=== PATIENT | male | born 1960 | race Caucasian/White ===

== ENCOUNTER → 2019-03-26 10:39 | Outpatient (CLI) | payer OTHER, MEDICAID, SELFPAY | PROVIDERS: PCP Student in an Organized Health Care Education/Training Program; Visit Provider Student in an Organized Health Care Education/Training Program | DX: R20.2 Paresthesia of skin (principal) | CPT/HCPCS: 95885; 95886; 95909 ==

== ENCOUNTER 2019-04-21 13:30 | Outpatient (RCR) | payer OTHER, MEDICAID, SELFPAY ==
--- NOTE | 2019-04-13 15:33 | PT.OIE ---
Current Diagnoses Pain in left shoulder (04/13/19) Past Medical History (Last Updated 03/29/18 @ 13:09 by Nicole Zimmer LPN) Alcohol abuse (Chronic) Hypertension (Chronic) Past Surgical History (Last Updated 03/29/18 @ 13:09 by Nicole Zimmer LPN) History of nephrectomy (Resolved 1977) Hx of appendectomy (Resolved 1977) Hx of hernia repair (Resolved 1999) Visit Care Team Role Provider Type Elvin Payne MD Attending Provider Physician Primary Care Provider Specialty: Internal Medicine Address: [address] [place] [address], [place] [id number] Email: [email or web address] Physical Therapy Initial Evaluation PT-OP-A Visit Information Start: 04/13/19 12:46 Freq: Status: Active Protocol: Document 04/13/19 13:38 LRN (Rec: 04/13/19 14:50 LRN [id number]) Out-Patient Physical Therapy Visit Information Visit Information Visit Type Initial Evaluation Visit Start Time 13:38 Visit Stop Time 14:26 Total Visit Minutes 48 Visit Number 1 Number of GOLD AND SILVER ASSAYER Visits 0 Evaluation Information Evaluation Date 04/13/19 Precautions Precautions 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 PT-OP-B Current Condition Start: 04/13/19 12:46 Freq: Status: Active Protocol: Document 04/13/19 13:38 LRN (Rec: 04/13/19 14:50 LRN [id number]) Current Condition History of Current Condition Onset Date 2.5 months ago after splitting wood, next day had pain in L shoulder. Current Complaints Posterior neck pain that is dull and sharp in nature. History of Current Condition Pt reports currently he is having very little pain and his pain went from the L shoulder to the R shoulder and is now only in the middle of the neck. Prior Treatments and Tests No recent tests or treatments. 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 He has had nerve conduction testing for R leg numbness from knee to foot. Future Testing and Treatments Planned No follow up care planned. Developmental History Developmental History 10 days ago was sleeping on R shoulder and jerked awake causing pain onset in R shoulder and neck and elimination of pain in the L shoulder. For 4 days he was not able to lift himself out of bed and his son and had to help him. He reports passing out for 20 sec's due to the pain. He slept without a pillow and now he only has pain in the back of the neck. Treatment Goals Patient/Caregiver Goals Pt goal is to find out what is wrong and fix it. Prior Functional Status Baseline Function- ADL's Independent Baseline Function- Mobility Independent Current Functional Impairments (Reported) Functional Limitations- ADL's Sleeping is hindered. Waking every other night if he rolls over wrong, causing a kink in his neck. He is waking from sleep every other night. 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 Personal Factors Other Personal Factors That May Effect 1/2 pack smoker Therapy/Recovery Drinks 1-3 beers daily Controlled HBP Hx of neck and back pain. PT-OP-C Subjective Start: 04/13/19 12:46 Freq: Status: Active Protocol: Document 04/13/19 13:38 LRN (Rec: 04/13/19 14:50 LRN [id number]) Patient Questionnaires Quick Dash- Upper Extremity Quick Dash UE Score 20.45 Quick Dash UE Impairment 20 to 39% Impaired (Score 20- 39) OP-PT Pain Assessment Pain Assessment Grid Paper Pain Assessment Grid Completed Yes Location Posterior Neck Pain Location Details C3-C5 facet joints and transverse processes, right UT Intensity 7 Scale Used Numeric (1 - 10) Description Dull,Sharp Pain Aggravating Factors Activity Other Pain Aggravating Factors Moving head, nighttime positioning. PT-OP-H Neuro Start: 04/13/19 14:51 Freq: Status: Active Protocol: Document 04/13/19 13:38 LRN (Rec: 04/13/19 15:22 LRN [id number]) Sensation Evaluation Gross Sensation Gross Sensation WNL Deep Tendon Reflex & Clonus Assessment Deep Tendon Reflex Left Tricep Deep Tendon Reflex 1+ Diminished Left Bicep Deep Tendon Reflex 1+ Diminished Left Brachioradialis Deep Tendon Reflex 0 Absent Right Tricep Deep Tendon Reflex 0 Absent Right Bicep Deep Tendon Reflex 0 Absent Right Brachioradialis Deep Tendon Reflex 1+ Diminished PT-OP-J Posture/Palpation/Skin Start: 04/13/19 14:51 Freq: Status: Active Protocol: Document 04/13/19 13:38 LRN (Rec: 04/13/19 15:22 LRN [id number]) Posture Evaluation Comments Posture Comments Standing: Increased lordosis of neck and back, L scapula is depressed and upwardly rotated, C-curve of back with apex on R. Pelvis appears level. Palpation Assessment Location Neck Palpation Location R Cervical paraspinals and Supraspinatus/UT Palpation Findings Soft Tissue Tightness, Tenderness Palpation Details Tenderness in posterior aspect of the neck ~C3-C5 level PT-OP-K Range of Motion Start: 04/13/19 14:51 Freq: Status: Active Protocol: Document 04/13/19 13:38 LRN (Rec: 04/13/19 15:22 LRN [id number]) Cervical Spine Range of Motion Cervical Spine Active Degrees Testing Position Sitting Flexion 57 Extension 85 Rotation Left 60 Rotation Right 55 Lateral Flexion Left 32 Lateral Flexion Right 40 ROM Limitations Pain Shoulder Goniometric Range of Motion Shoulder Right Active Shoulder ROM WFL Yes Left Active Shoulder ROM WFL Yes Shoulder ROM Limitations Shoulder ROM Limitations Soft Tissue Tightness Comments Reaching behind head to level of T2 bilaterally. Reaching behind back to level of T6 bilaterally. PT-OP-M Strength Start: 04/13/19 14:51 Freq: Status: Active Protocol: Document 04/13/19 13:38 LRN (Rec: 04/13/19 15:22 LRN [id number]) Cervical Spine Strength Cervical Spine Manual Muscle Testing Testing Position Sitting Reason Not Measured WFL Comments Neck strength is generally 5/5 Shoulder Strength Shoulder Manual Muscle Testing Right Reason Not Measured WFL Left Reason Not Measured WFL Comments Testing L shoulder AB elicited lateral arm pain with resistance. PT-OP-Q Treatments Start: 04/13/19 14:51 Freq: Status: Active Protocol: Document 04/13/19 13:38 LRN (Rec: 04/13/19 15:22 LRN [id number]) Therapeutic Exercises Supine Exercises Neck stretch Supine Exercise Name Cervical SB left & active rotation right Reps/Minutes 3 Self-Care/Home Management Treatment Education Patient Education Home Exercise Program Activities Self-Care/Home Management Activities I/S pt in HEP: Supine cervical SB to left and active rotation right stretch. PT-OP-T Assessment and Plan Start: 04/13/19 14:51 Freq: Status: Active Protocol: Document 04/13/19 13:38 LRN (Rec: 04/13/19 15:22 LRN [id number]) Physical Therapy Assessment Rehab Potential Rehabilitation Potential Excellent Evaluation Complexity Number of Personal Factors/Comorbidities 1-2 Number of Body Systems Impaired 3 Clinical Presentation at Evaluation Stable Impairments Impairments Pain,ROM,Soft Tissue Mobility Goals Four Impairment Poor standing posture Short Term Goal (STG) Pt will be educated in proper posturing. STG Duration 04/27/19 Three Impairment Interrupted sleep at night Mcfp Goal (LTG) Pt will be able to sleep through the night 5-6 days per week. LTG Duration 06/09/19 Two Impairment Posterior Cervical pain rated 3-7/10. Short Term Goal (STG) Decrease pain to no greater than 5/10 STG Duration 05/01/19 Mcfp Goal (LTG) Decrease pain to 0/10 with donning/doffing a coat. LTG Duration 06/09/19 One Impairment Lacks appropriate HEP Mathematician Goal (LTG) Pt will be independent in a self care HEP of ROM and strengthening ex's for pt to progress cervical stabilization with normal C. AROM. LTG Duration 06/09/19 Assessment Summary Assessment Pt presents with limited cervical L SB and R rot mobility due to soft tissue dysfunction. He doesn't appear to have a mechanical dysfunction of the cervical spine at this time, but based on the pt's subjective reports he may have dysfunction of his facet joints and tightness of muscles attaching to his transverse processes. The pt will benefit from skilled physical therapy to decrease pain, improve cervical mobility and improve cervical stability/stabilization. Physical Therapy Plan Frequency and Duration Frequency of Treatment 2x/Week Plan of Care Start Date 04/13/19 Plan of Care End Date 06/09/19 Therapeutic Interventions Therapeutic Interventions Home Exercise Program,Joint Mobilizations,Manual Therapy, Neuromuscular Re-education, Patient/Caregiver Education, Self-Care/Home Management,Soft Tissue Mobilization, Therapeutic Exercises Modalities Cold Pack/Ice Massage,Electric Stimulation,Traction- Mechanical,Ultrasound Next Visit Focus/Plan Next Note Type Treatment Note Next Visit Plan Review HEP stretches: L SB, R rotation. STM to neck & R UT , ROM ex's (when normal start stabilization strengthening), end modalities (cryotherapy, MH/ES) if needed. Progress pt to HEP in 4-8 weeks.
--- NOTE | 2019-04-15 08:15 | PT.OTN ---
Current Diagnoses Pain in left shoulder (04/15/19) Physical Therapy Treatment Note PT-OP-A Visit Information Start: 04/13/19 12:46 Freq: Status: Active Protocol: Document 04/15/19 08:15 SP (Rec: 04/15/19 08:39 SP [id number]) Out-Patient Physical Therapy Visit Information Visit Information Visit Type Treatment Note Visit Start Time 07:30 Visit Stop Time 08:15 Total Visit Minutes 45 Visit Number 2 Number of CHILD SUPPORT INVESTIGATOR Visits 1 PT-OP-B Current Condition Start: 04/13/19 12:46 Freq: Status: Active Protocol: Document 04/13/19 13:38 LRN (Rec: 04/13/19 14:50 LRN [id number]) Current Condition History of Current Condition Onset Date 2.5 months ago after splitting wood, next day had pain in L shoulder. Current Complaints Posterior neck pain that is dull and sharp in nature. History of Current Condition Pt reports currently he is having very little pain and his pain went from the L shoulder to the R shoulder and is now only in the middle of the neck. Prior Treatments and Tests No recent tests or treatments. 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 He has had nerve conduction testing for R leg numbness from knee to foot. Future Testing and Treatments Planned No follow up care planned. Developmental History Developmental History 10 days ago was sleeping on R shoulder and jerked awake causing pain onset in R shoulder and neck and elimination of pain in the L shoulder. For 4 days he was not able to lift himself out of bed and his son and had to help him. He reports passing out for 20 sec's due to the pain. He slept without a pillow and now he only has pain in the back of the neck. Treatment Goals Patient/Caregiver Goals Pt goal is to find out what is wrong and fix it. Prior Functional Status Baseline Function- ADL's Independent Baseline Function- Mobility Independent Current Functional Impairments (Reported) Functional Limitations- ADL's Sleeping is hindered. Waking every other night if he rolls over wrong, causing a kink in his neck. He is waking from sleep every other night. 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 Personal Factors Other Personal Factors That May Effect 1/2 pack smoker Therapy/Recovery Drinks 1-3 beers daily Controlled HBP Hx of neck and back pain. PT-OP-C Subjective Start: 04/13/19 12:46 Freq: Status: Active Protocol: Document 04/15/19 08:15 SP (Rec: 04/15/19 08:39 SP [id number]) OP-PT Subjective Patient Comments Patient Comments Pt stated tightness in L >R upper trap and posterior neck. No new changes or concerns since eval. PT-OP-H Neuro Start: 04/13/19 14:51 Freq: Status: Active Protocol: Document 04/13/19 13:38 LRN (Rec: 04/13/19 15:22 LRN [id number]) Sensation Evaluation Gross Sensation Gross Sensation WNL Deep Tendon Reflex & Clonus Assessment Deep Tendon Reflex Left Tricep Deep Tendon Reflex 1+ Diminished Left Bicep Deep Tendon Reflex 1+ Diminished Left Brachioradialis Deep Tendon Reflex 0 Absent Right Tricep Deep Tendon Reflex 0 Absent Right Bicep Deep Tendon Reflex 0 Absent Right Brachioradialis Deep Tendon Reflex 1+ Diminished PT-OP-J Posture/Palpation/Skin Start: 04/13/19 14:51 Freq: Status: Active Protocol: Document 04/13/19 13:38 LRN (Rec: 04/13/19 15:22 LRN [id number]) Posture Evaluation Comments Posture Comments Standing: Increased lordosis of neck and back, L scapula is depressed and upwardly rotated, C-curve of back with apex on R. Pelvis appears level. Palpation Assessment Location Neck Palpation Location R Cervical paraspinals and Supraspinatus/UT Palpation Findings Soft Tissue Tightness, Tenderness Palpation Details Tenderness in posterior aspect of the neck ~C3-C5 level PT-OP-K Range of Motion Start: 04/13/19 14:51 Freq: Status: Active Protocol: Document 04/13/19 13:38 LRN (Rec: 04/13/19 15:22 LRN [id number]) Cervical Spine Range of Motion Cervical Spine Active Degrees Testing Position Sitting Flexion 57 Extension 85 Rotation Left 60 Rotation Right 55 Lateral Flexion Left 32 Lateral Flexion Right 40 ROM Limitations Pain Shoulder Goniometric Range of Motion Shoulder Right Active Shoulder ROM WFL Yes Left Active Shoulder ROM WFL Yes Shoulder ROM Limitations Shoulder ROM Limitations Soft Tissue Tightness Comments Reaching behind head to level of T2 bilaterally. Reaching behind back to level of T6 bilaterally. PT-OP-M Strength Start: 04/13/19 14:51 Freq: Status: Active Protocol: Document 04/13/19 13:38 LRN (Rec: 04/13/19 15:22 LRN [id number]) Cervical Spine Strength Cervical Spine Manual Muscle Testing Testing Position Sitting Reason Not Measured WFL Comments Neck strength is generally 5/5 Shoulder Strength Shoulder Manual Muscle Testing Right Reason Not Measured WFL Left Reason Not Measured WFL Comments Testing L shoulder AB elicited lateral arm pain with resistance. PT-OP-Q Treatments Start: 04/13/19 14:51 Freq: Status: Active Protocol: Document 04/15/19 08:15 SP (Rec: 04/15/19 08:39 SP [id number]) Therapeutic Exercises Supine Exercises Deep neck flexion Reps/Minutes 10 sec x10 Neck stretch Supine Exercise Name Cervical SB left & active rotation right Reps/Minutes 3 Sitting Exercises scap retraction Reps/Minutes 10 sec hold x10 Comments cued neck in neutral Cervical SNAGS Side bilateral Equipment Used towel Reps/Minutes 10 sec hold Comments cross hand placement on towel guiding toward top hand, bottom hand downward neck stretching Sitting Exercise Name cervical SB, rotation Side bilateral Reps/Minutes 10 sec hold x3 Comments hand anchored under chair Standing Exercises pec stretch Side bilateral Reps/Minutes 30 sec x3 Comments at wall Manual Therapy Treatment Soft Tissue Mobilization neck STMs Body Location UT, lev scap, scm, suboccipitals Mobilization Type Cross-Friction,Myofascial Release,Rolling,Sustained Pressure Intensity/Depth Moderate Body Position Supine Comments Instruction on self application with opposite UE and use of theracane. PT-OP-T Assessment and Plan Start: 04/13/19 14:51 Freq: Status: Active Protocol: Document 04/15/19 08:15 SP (Rec: 04/15/19 08:39 SP [email or web address]) Physical Therapy Assessment Assessment Summary Assessment Pt demonstrates limiting L SB and R rotation reporting tightness. Responded well to STMs, stretching and initial postural exercises. My posture feel alot better, able to move neck little more. Physical Therapy Plan Frequency and Duration Frequency of Treatment 2x/Week Plan of Care Start Date 04/13/19 Plan of Care End Date 06/09/19 Therapeutic Interventions Therapeutic Interventions Home Exercise Program,Joint Mobilizations,Manual Therapy, Neuromuscular Re-education, Patient/Caregiver Education, Self-Care/Home Management,Soft Tissue Mobilization, Therapeutic Exercises Modalities Cold Pack/Ice Massage,Electric Stimulation,Traction- Mechanical,Ultrasound Next Visit Focus/Plan Next Note Type Treatment Note Next Visit Plan Review HEP stretches: L SB, R rotation. STM to neck & R UT , ROM ex's (when normal start stabilization strengthening), end modalities (cryotherapy, MH/ES) if needed. Progress pt to HEP in 4-8 weeks.
--- NOTE | 2019-04-21 14:11 | PT.OTN ---
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 PT-OP-B Current Condition Start: 04/13/19 12:46 Freq: Status: Active Protocol: Document 04/13/19 13:38 LRN (Rec: 04/13/19 14:50 LRN [id number]) Current Condition History of Current Condition Onset Date 2.5 months ago after splitting wood, next day had pain in L shoulder. Current Complaints Posterior neck pain that is dull and sharp in nature. History of Current Condition Pt reports currently he is having very little pain and his pain went from the L shoulder to the R shoulder and is now only in the middle of the neck. Prior Treatments and Tests No recent tests or treatments. 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 He has had nerve conduction testing for R leg numbness from knee to foot. Future Testing and Treatments Planned No follow up care planned. Developmental History Developmental History 10 days ago was sleeping on R shoulder and jerked awake causing pain onset in R shoulder and neck and elimination of pain in the L shoulder. For 4 days he was not able to lift himself out of bed and his son and had to help him. He reports passing out for 20 sec's due to the pain. He slept without a pillow and now he only has pain in the back of the neck. Treatment Goals Patient/Caregiver Goals Pt goal is to find out what is wrong and fix it. Prior Functional Status Baseline Function- ADL's Independent Baseline Function- Mobility Independent Current Functional Impairments (Reported) Functional Limitations- ADL's Sleeping is hindered. Waking every other night if he rolls over wrong, causing a kink in his neck. He is waking from sleep every other night. 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 Personal Factors Other Personal Factors That May Effect 1/2 pack smoker Therapy/Recovery Drinks 1-3 beers daily Controlled HBP Hx of neck and back pain. PT-OP-C Subjective Start: 04/13/19 12:46 Freq: Status: Active Protocol: Document 04/21/19 13:32 LRN (Rec: 04/21/19 14:08 LRN [id number]) OP-PT Subjective Patient Comments Patient Comments States he has no pain and he has been sleeping through the night since last visit. Ready for discharge to his HEP. Feels he doesn't need more therapy. PT-OP-H Neuro Start: 04/13/19 14:51 Freq: Status: Active Protocol: Document 04/13/19 13:38 LRN (Rec: 04/13/19 15:22 LRN [id number]) Sensation Evaluation Gross Sensation Gross Sensation WNL Deep Tendon Reflex & Clonus Assessment Deep Tendon Reflex Left Tricep Deep Tendon Reflex 1+ Diminished Left Bicep Deep Tendon Reflex 1+ Diminished Left Brachioradialis Deep Tendon Reflex 0 Absent Right Tricep Deep Tendon Reflex 0 Absent Right Bicep Deep Tendon Reflex 0 Absent Right Brachioradialis Deep Tendon Reflex 1+ Diminished PT-OP-J Posture/Palpation/Skin Start: 04/13/19 14:51 Freq: Status: Active Protocol: Document 04/13/19 13:38 LRN (Rec: 04/13/19 15:22 LRN [id number]) Posture Evaluation Comments Posture Comments Standing: Increased lordosis of neck and back, L scapula is depressed and upwardly rotated, C-curve of back with apex on R. Pelvis appears level. Palpation Assessment Location Neck Palpation Location R Cervical paraspinals and Supraspinatus/UT Palpation Findings Soft Tissue Tightness, Tenderness Palpation Details Tenderness in posterior aspect of the neck ~C3-C5 level PT-OP-K Range of Motion Start: 04/13/19 14:51 Freq: Status: Active Protocol: Document 04/21/19 13:32 LRN (Rec: 04/21/19 14:11 LRN [id number]) Cervical Spine Range of Motion Cervical Spine Active Degrees Testing Position Sitting Flexion 65 Extension 90 Rotation Left 64 Rotation Right 65 Lateral Flexion Left 32 Lateral Flexion Right 40 Shoulder Goniometric Range of Motion Shoulder Right Active Shoulder ROM WFL Yes Left Active Shoulder ROM WFL Yes PT-OP-M Strength Start: 04/13/19 14:51 Freq: Status: Active Protocol: Document 04/21/19 13:32 LRN (Rec: 04/21/19 14:11 LRN [id number]) Shoulder Strength Shoulder Manual Muscle Testing Right Reason Not Measured WFL Left Reason Not Measured WFL Comments Testing L shoulder AB - No pain. PT-OP-Q Treatments Start: 04/13/19 14:51 Freq: Status: Active Protocol: Document 04/21/19 13:32 LRN (Rec: 04/21/19 14:08 LRN [id number]) Therapeutic Exercises Supine Exercises Neck stretch Supine Exercise Name Cervical SB left & active rotation right Reps/Minutes 3 Sitting Exercises scap retraction Reps/Minutes 10 sec hold x5 neck stretching Sitting Exercise Name cervical SB, rotation Side bilateral Reps/Minutes 10 sec hold x3 Comments hand anchored under chair Standing Exercises pec stretch Side bilateral Reps/Minutes 30 sec x3 Comments at wall Manual Therapy Treatment Manual Techniques Assessment for leg length Type Assessment for innominate dysfunction and leg length discrepancy Reps/Duration 3' Comments + for L leg long, no innominate dysfunction. Self-Care/Home Management Treatment Education Patient Education Home Exercise Program Activities Self-Care/Home Management Activities Reviewed HEP with pt of C. ROM and shoulder exercises. Discussed options of self care for long L leg. PT-OP-T Assessment and Plan Start: 04/13/19 14:51 Freq: Status: Active Protocol: Document 04/21/19 13:32 LRN (Rec: 04/21/19 14:08 LRN [id number]) Physical Therapy Assessment Goals Four Impairment Poor standing posture Short Term Goal (STG) Pt will be educated in proper posturing. STG Duration 04/27/19 (04/21/19: GOAL MET) Three Impairment Interrupted sleep at night Care Home Goal (LTG) Pt will be able to sleep through the night 5-6 days per week. LTG Duration 06/09/19 (04/21/19: GOAL MET) Two Impairment Posterior Cervical pain rated 3-7/10. Short Term Goal (STG) Decrease pain to no greater than 5/10 STG Duration 05/01/19 (04/21/19: GOAL MET) Care Home Goal (LTG) Decrease pain to 0/10 with donning/doffing a coat. LTG Duration 06/09/19 (04/21/19: GOAL MET) One Impairment Lacks appropriate HEP Care Home Goal (LTG) Pt will be independent in a self care HEP of ROM and strengthening ex's for pt to progress cervical stabilization with normal C. AROM. LTG Duration 06/09/19 (04/21/19: GOAL MET) Assessment Summary Assessment Pt goals met. Pt ready for discharge and confident in his ability to keep doing home exercises to improve cervical L sidebend. Physical Therapy Plan Discharge Physical Therapy Discharge Reasons Goals Met Discharge Comments Pt did well with therapy and is ready to continue on with an independent HEP. Thank you for your referral.
== END 2019-04-29 16:26 | disposition home or self-care (01) ==
LOC: PHYS 13:30
PROVIDERS: PCP Student in an Organized Health Care Education/Training Program; Visit Provider Student in an Organized Health Care Education/Training Program
DX: M25.512 Pain in left shoulder (principal)
CPT/HCPCS: 97110; 97140; 97161; 97535

== ENCOUNTER 2019-06-15 20:00 | Emergency (ER) | payer OTHER, MEDICAID, SELFPAY ==
[2019-06-15] VITALS (7 sets, daily range): BP systolic 97–151; BP diastolic 65–90; PULSE 65–96; RESP 18–20; TEMP 37; O2SAT 90–98
--- NOTE | 2019-06-15 20:11 | DI.RAD.S_ITS ---
PROCEDURE: XR CHEST 1V INDICATIONS: syncope TECHNIQUE: One view of the chest was acquired. COMPARISON: [facility], , CHEST 1 VIEW, 11/08/2014, 20:25. FINDINGS: Surgical changes and devices: None. Lungs and pleura: Lungs are clear. No pleural effusions or pneumothorax. Mediastinum: Mediastinal contours appear normal. Heart size is normal. Bones and chest wall: No suspicious bony lesions. Overlying soft tissues appear unremarkable. IMPRESSION: No acute cardiopulmonary disease. Dictated by: Luda Huang M.D. on 06/15/2019 at 20:38 Approved by: Luda Huang M.D. on 06/15/2019 at 20:41
[2019-06-15 20:31] LABS: Add Manual Diff / Slide Review NO; Basophils Absolute Auto 100 /uL (0-100); Basophils Percent Auto 0.9 % (0-2); Eosinophils Absolute Auto 200 /uL (0-450); Eosinophils Percent Auto 1.9 % (2-4); Hematocrit 41.7 % (41-53); Hemoglobin 14.3 g/dL (13.5-17.5); Lymphocytes Absolute Auto 2700 /uL (1100-4500); Lymphocytes Percent Auto 27.8 % (25-40); Mean Corpuscular HGB Conc 34.3 % (30-36); Mean Corpuscular Hemoglobin 34.3 PG (26-34); Monocytes Absolute Auto 700 /uL (0-900); Monocytes Percent Auto 7.4 % (3-14); Neutrophils Absolute Auto 6100 /uL (1500-7000); Platelet Count 247 X10^3/uL (150-400); Red Blood Cell Count 4.17 X10^6/uL (4.5-5.9); Red Cell Distribution Width 13.2 % (11.6-14.8); White Blood Cell Count 9.9 X10^3/uL (4.5-11.0)
--- NOTE | 2019-06-15 20:31 | ED_ITS ---
HPI - Syncope General Chief Complaint: Syncope Stated Complaint: PASSED OUT HAD CPR DONE Time Seen by Provider: 06/15/19 20:17 Source: patient Mode of arrival: Ambulatory Limitations: no limitations History of Present Illness HPI narrative: The patient has syncopal event at home. He describes outside doing yd work. He describes drinking 6 beers to the course today, as well as smoking marijuana. He came inside for dinner, he sat. He wasn't feeling well and called out to his . She noted is head rolling back in him becoming unresponsive. Her son helped him to the floor. His son cannot determine if his breathing or not, he was not responding verbally. He did not respond to a sternal rub. The son delivered about 3 compressions to the chest, the patient will. Paramedics were called. He was up and active when they arrived at home with no specific complaints other than taking some the compressions. The patient has not been ill with fever, chills or cough. He denies headache or confusion. He has no cardiac disease. He was not assuming chest pain or palpitations before the syncopal episode. He is eating well today. Fluid intake other than the beer has been minimal. He has no abdominal pain or GI symptoms. He has no urinary complaints. He currently has no confusion, no focal weakness or numbness. He has a prior history of syncope without obvious reason. Related Data Previous Rx's Medication Instructions Recorded aspirin 81 mg chewable tablet 81 mg PO DAILY #30 tab 04/17/18 cholecalciferol (vitamin D3) 4,000 4,000 unit PO DAILY #30 cap 04/17/18 unit capsule atorvastatin 20 mg tablet 20 mg PO DAILY #90 tab 01/29/19 metoprolol tartrate 25 mg tablet 25 mg PO BID #180 tab 01/29/19 Allergies Allergy/AdvReac Type Severity Reaction Status Date / Time fluconazole Allergy Severe SWEATING, Verified 03/24/19 09:45 SOB, NAUSEA diclofenac [DICLOFENAC] Allergy Intermediate RASH ON Verified 03/24/19 09:45 FACE; LIGHTHEADEDNESS Review of Systems Review of Systems ROS Unobtainable: All systems reviewed & are unremarkable except as noted in HPI and below Constitutional Constitutional: Reports as per HPI, Denies chills, Denies fatigue, Denies fever(s), Denies headache(s), Denies lethargy and Denies weakness Eyes Eyes: Denies change in vision, Denies eye discharge and Denies loss of vision ENT Ears, Nose, Mouth, and Throat: Denies vertigo, Reports dizziness, Denies headache(s), Denies disequilibrium, Denies tinnitus and Denies sore throat Cardiovascular Cardiovascular: Denies chest pain, Denies irregular heart rhythm, Denies lightheadedness, Denies palpitations, Denies dyspnea and Denies orthopnea Respiratory Respiratory: Denies cough, Denies dyspnea and Denies wheezing Gastrointestinal Gastrointestinal: Denies abdominal pain, Denies change in bowel habits, Denies diarrhea, Denies nausea and Denies vomiting Genitourinary Genitourinary: Denies urinary incontinence Musculoskeletal Musculoskeletal: Denies back pain, Denies muscle weakness, Denies numbness and Denies tingling Integumentary/Breasts Skin/Breast: Denies pruritus, Denies erythema, Denies rash and Denies wounds Neurologic Neurologic: Reports as per HPI (Syncope prior to arrival, currently no associated symptoms.), Denies vertigo, Reports dizziness, Denies headache(s), Denies loss of vision, Denies numbness, Denies tingling, Denies disequilibrium and Denies weakness Endocrine Endocrine: Denies fatigue and Denies palpitations Allergic/Immunologic Allergic/Immunologic: Denies wheezing Patient History Medical History Alcohol abuse (Chronic) Hypertension (Chronic) Syncope (Acute) Surgical History History of nephrectomy (Resolved 1977) Hx of appendectomy (Resolved 1977) Hx of hernia repair (Resolved 1999) Family History Father Congestive heart failure Diabetes mellitus COPD (chronic obstructive pulmonary disease) Mother Hypertension Diabetes mellitus Cancer Social History Smoking Status: Current every day smoker alcohol intake: current (5-6 beers/ day) substance use type: marijuana Smoking Status: Current every day smoker alcohol intake frequency: a few times a week Alcohol type: beer Exam Initial Vital Signs Initial Vital Signs: Vital Signs Temperature 98.6 F 06/15/19 20:04 Pulse Rate 82 06/15/19 20:04 Respiratory Rate 20 06/15/19 20:04 Blood Pressure 151/90 H 06/15/19 20:04 Pulse Oximetry 98 06/15/19 20:04 Const General: cooperative and well developed Nutritional Appearance: well nourished Orientation: alert, awake, oriented x3 and not confused HENMO Head: normocephalic and atraumatic Ears: external ears normal and TM's normal bilaterally Nose: external nose normal Face and sinus: sinuses nontender and face symmetric Mouth: oral mucosae normal and moist mucous membranes Teeth and gingiva: dentition normal Throat: posterior oropharynx normal Eyes General: appearance normal, both eyes and all related structures Eyelids: eyelids normal Conjunctivae: conjunctivae normal Sclera: sclerae normal Pupils: PERRL EOM: EOM intact bilaterally Neck Neck: supple, No lymphadenopathy and No JVD Chest Chest: normal palpation of entire chest wall Resp Effort & Inspection: normal respiratory effort, able to speak in complete sentences, no respiratory distress and no use of accessory muscles Auscultation: clear to auscultation bilaterally, no rales, no rhonchi and no wheezes Cardio Rate: regular rate Rhythm: regular rhythm Heart Sounds: no click, no gallops, no murmurs and no rubs Pulses: normal peripheral pulses GI Inspection: non-distended Palpation: soft, no hepatosplenomegaly, No guarding, No pulsatile mass and No tender Auscultation: normal bowel sounds Back/Spine/Pelvis Back: No back tenderness, No CVA tenderness and No erythema Skin General: no rashes or lesions noted, No jaundice and No petechiae Neuro General: alert, oriented x3, gait normal and no focal motor deficits Speech: speech normal Motor: muscle tone normal throughout Sensory Exam: no sensory deficits noted Coordination: [id number] test normal Extrem General: full ROM, no clubbing, cyanosis or edema, no pedal edema and no calf tenderness Psych Appearance: well kempt Mental Status: mental status grossly normal Attitude: cooperative Thought Content: normal Judgment: judgment good Course Course Course Narrative: The patient received 1 L IV fluids, he has improved but not having urine output. He is intoxicated. He is taking oral fluids without issue. No other significant pathology that may lead to syncope has been discovered. He'll be discharged home. Orders Ordered: ED Orders 06/15/19 20:10 EKG-12 Lead Stat 06/15/19 20:11 Chest [XR chest 1V] Stat 06/15/19 20:15 Complete Blood Count AUTO DIFF Stat Comprehensive Metabolic Panel Stat D Dimer Stat Ethanol (ETOH) Stat PT [Prothrombin Time INR] Stat Partial Thromboplastin Time Stat Troponin & CK Cardiac Panel Stat Discontinued Medications Sodium Chloride (Normal Saline 0.9%) 1,000 mls @ 1,000 mls/hr IV BOLUS ONE Stop: 06/15/19 21:40 Last Infusion: 06/15/19 22:53 Dose: 0 mls/hr Documented by: Admin: 06/15/19 20:50 Dose: 1,000 mls/hr Documented by: HOMA Vital Signs Vital signs: Vital Signs - 8 hr 06/15/19 20:04 06/15/19 20:37 06/15/19 20:58 Temperature 98.6 F Pulse Rate 82 75 69 Respiratory Rate 20 Blood Pressure 151/90 H Blood Pressure [Left Arm] 111/65 111/65 Pulse Oximetry 98 97 96 06/15/19 21:00 06/15/19 21:37 06/15/19 22:38 Temperature Pulse Rate 68 65 96 H Respiratory Rate 18 Blood Pressure Blood Pressure [Left Arm] 100/67 97/66 108/78 Pulse Oximetry 96 94 90 L 06/15/19 22:53 Temperature Pulse Rate 88 Respiratory Rate 19 Blood Pressure 108/78 Blood Pressure [Left Arm] Pulse Oximetry 94 MDM - Syncope Lab Data Result diagrams: 06/15/19 20:15 06/15/19 20:15 Labs: Lab Results 06/15/19 06/15/19 06/15/19 Range/Units 20:15 20:15 20:15 WBC 9.9 (4.5-11.0) X10^3/uL RBC 4.17 L (4.5-5.9) X10^6/uL Hgb 14.3 (13.5-17.5) g/dL Hct 41.7 (41-53) % MCV 100.0 (80-100) fL MCH 34.3 H (26-34) PG MCHC 34.3 (30-36) % RDW 13.2 (11.6-14.8) % Plt Count 247 (150-400) X10^3/uL Neut % (Auto) 62.0 (50-75) % Lymph % (Auto) 27.8 (25-40) % [place] % (Auto) 7.4 (3-14) % Eos % (Auto) 1.9 L (2-4) % Baso % (Auto) 0.9 (0-2) % Neut # (Auto) 6100 (4620-5998) /uL Lymph # (Auto) 2700 (0402-0070) /uL [place] # (Auto) 700 (0-900) /uL Eos # (Auto) 200 (0-450) /uL Baso # (Auto) 100 (0-100) /uL PT (10.1-12.7) SECONDS INR (0.9-1.3) APTT (26.4-36.2) SECONDS D-Dimer 215 (<230) ng/mL Sodium 141 (137-145) mmol/L Potassium 3.9 (3.4-5.1) mmol/L Chloride 103 (98-107) mmol/L Carbon Dioxide 27 (22-32) mmol/L BUN 13 (9-20) mg/dL Creatinine 0.90 (0.66-1.25) mg/dL Estimated GFR > 60.0 (>60) mL/min BUN/Creatinine Ratio 14.4 (6-22) Glucose 127 H (70-100) mg/dL Calcium 9.4 (8.4-10.2) mg/dL Total Bilirubin 0.4 (0.2-1.3) mg/dL AST 32 (17-59) IU/L ALT 18 (<50) IU/L Alkaline Phosphatase 52 (38-126) U/L Total Creatine Kinase 106 (55-170) U/L CK-MB (CK-2) 1.15 (<2.37) ng/mL CK-MB (CK-2) Rel Index 1.1 L (1.5-5.0) % Troponin I < 0.012 (0.01-0.034) ng/mL Total Protein 7.7 (6.3-8.2) g/dL Albumin 4.6 (3.5-5.0) g/dL Globulin 3.1 (1.7-4.1) g/dL Albumin/Globulin Ratio 1.5 (1.0-2.8) Ethyl Alcohol ( - 10) mg/dL 06/15/19 06/15/19 Range/Units 20:15 20:15 WBC (4.5-11.0) X10^3/uL RBC (4.5-5.9) X10^6/uL Hgb (13.5-17.5) g/dL Hct (41-53) % MCV (80-100) fL MCH (26-34) PG MCHC (30-36) % RDW (11.6-14.8) % Plt Count (150-400) X10^3/uL Neut % (Auto) (50-75) % Lymph % (Auto) (25-40) % [place] % (Auto) (3-14) % Eos % (Auto) (2-4) % Baso % (Auto) (0-2) % Neut # (Auto) (6505-4165) /uL Lymph # (Auto) (9149-9655) /uL [place] # (Auto) (0-900) /uL Eos # (Auto) (0-450) /uL Baso # (Auto) (0-100) /uL PT 10.1 (10.1-12.7) SECONDS INR 0.9 (0.9-1.3) APTT 27 (26.4-36.2) SECONDS D-Dimer (<230) ng/mL Sodium (137-145) mmol/L Potassium (3.4-5.1) mmol/L Chloride (98-107) mmol/L Carbon Dioxide (22-32) mmol/L BUN (9-20) mg/dL Creatinine (0.66-1.25) mg/dL Estimated GFR (>60) mL/min BUN/Creatinine Ratio (6-22) Glucose (70-100) mg/dL Calcium (8.4-10.2) mg/dL Total Bilirubin (0.2-1.3) mg/dL AST (17-59) IU/L ALT (<50) IU/L Alkaline Phosphatase (38-126) U/L Total Creatine Kinase (55-170) U/L CK-MB (CK-2) (<2.37) ng/mL CK-MB (CK-2) Rel Index (1.5-5.0) % Troponin I (0.01-0.034) ng/mL Total Protein (6.3-8.2) g/dL Albumin (3.5-5.0) g/dL Globulin (1.7-4.1) g/dL Albumin/Globulin Ratio (1.0-2.8) Ethyl Alcohol 184 H ( - 10) mg/dL ECG Data Attestation: I personally reviewed and interpreted this ECG as follows: (Normal sinus rhythm rate 86 beats per minute. Possible old lateral [place]. Normal intervals. No acute ST T-wave changes. No arrhythmia. ) Discharge Plan Departure Patient Disposition: Home Clinical Impression: Dehydration Syncope Qualifiers: Syncope type: unspecified Qualified Code(s): R55 - Syncope and collapse Alcohol intoxication Qualifiers: Complication of substance-induced condition: with unspecified complication Qualified Code(s): F10.929 - Alcohol use, unspecified with intoxication, unspecified Discharge Date/Time: 06/15/19 22:53 Instructions: DI for Syncope in Adults (Fainting), DI for Alcohol Abuse Activity Restrictions/Additional Instructions: You need to be certain to drink more water during the course today. I strongly recommend you decrease or cease here use of alcohol. Follow-up with your physician for assistance with this if necessary. Return to the ER as needed. Prescriptions: No Action aspirin 81 mg tablet,chewable 81 mg PO DAILY Qty: 30 RF: 0 cholecalciferol (vitamin D3) 4,000 unit capsule 4,000 unit PO DAILY Qty: 30 RF: 0 atorvastatin 20 mg tablet 20 mg PO DAILY Qty: 90 RF: 3 metoprolol tartrate 25 mg tablet 25 mg PO BID Qty: 180 RF: 1 Referrals: Elvin Payne MD [Primary Care Provider] -
[2019-06-15 20:40] LABS: INR 0.9 (0.9-1.3); Prothrombin Time 10.1 SECONDS (10.1-12.7)
[2019-06-15 20:42] LABS: Ethanol (ETOH) 184 mg/dL; PTT Partial Thromboplastin Tim 27 SECONDS (26.4-36.2)
[2019-06-15 20:43] LABS: Alanine Aminotransferase 18 IU/L (<50); Albumin 4.6 g/dL (3.5-5.0); Albumin Globulin Ratio 1.5 (1.0-2.8); Alkaline Phosphatase 52 U/L (38-126); Aspartate Aminotransferase 32 IU/L (17-59); BUN Creatinine Ratio 14.4 (6-22); Bilirubin Total 0.4 mg/dL (0.2-1.3); Blood Urea Nitrogen 13 mg/dL (9-20); Calcium 9.4 mg/dL (8.4-10.2); Carbon Dioxide 27 mmol/L (22-32); Chloride 103 mmol/L (98-107); Creatine Kinase 106 U/L (55-170); Estimated Glomerular Filt Rate > 60.0 mL/min (>60); Globulin 3.1 g/dL (1.7-4.1); Glucose 127 mg/dL (70-100); HEMOLYSIS < 15 (0-50); Potassium 3.9 mmol/L (3.4-5.1); Sodium 141 mmol/L (137-145); Total Protein 7.7 g/dL (6.3-8.2)
[2019-06-15 20:44] LABS: D Dimer 215 ng/mL (<230)
[2019-06-15] MEDS: SODIUM CHLORIDE 0.9% 1,000 ML 1000 ML IV (20:50)
[2019-06-15 20:55] LABS: Troponin I < 0.012 ng/mL (0.01-0.034)
[2019-06-15 20:59] LABS: CKMB % Relative Index 1.1 % (1.5-5.0); Creatine Kinase MB 1.15 ng/mL (<2.37)
== END 2019-06-15 22:53 | disposition home or self-care (01) ==
PROVIDERS: Emergency Provider Emergency Medicine; PCP Student in an Organized Health Care Education/Training Program
DX: E86.0 Dehydration (principal); R55 Syncope and collapse; F10.929 Alcohol use, unspecified with intoxication, unspecified
CPT/HCPCS: 36415; 71045; 80053; 80320; 82550; 82553; 84484; 85025; 85379; 85610; 85730; 93005; 93010; 96360; 96361; 99284; 99285

== ENCOUNTER 2019-12-22 13:50 | Emergency (ER) | payer OTHER, MEDICAID, SELFPAY ==
[2019-12-22] VITALS (9 sets, daily range): BP systolic 176–202; BP diastolic 98–116; PULSE 67–124; RESP 14–21; TEMP 36.8–37.4; O2SAT 97–100; BMI 22.3
--- NOTE | 2019-12-22 14:43 | ED_ITS ---
HPI - Arrhythmia/Palpitations General Chief Complaint: Arrhythmia/Palpitations Stated Complaint: BP high, high pulse, overheated Time Seen by Provider: 12/22/19 14:22 Source: patient Mode of arrival: Ambulatory Limitations: no limitations History of Present Illness HPI narrative: Patient is a 59-year-old male who presents with sudden onset of shortness of breath. He was outside in the hot sun chopping down evergreen trees when he got extremely short of breath and diaphoretic. He says he has been trying to drink water and stay hydrated he has urinated a few times his urine is clear. He denies any worsening shortness of breath with exertion versus at rest. He has no productive cough he denies any chest pain or tightness. Denies any chills. He was previously well. Related Data Previous Rx's Medication Instructions Recorded aspirin 81 mg chewable tablet 81 mg PO DAILY #30 tab 04/17/18 cholecalciferol (vitamin D3) 100 4,000 unit PO DAILY #30 cap 04/17/18 mcg (4,000 unit) capsule atorvastatin 20 mg tablet 20 mg PO DAILY #90 tab 01/29/19 metoprolol tartrate 25 mg tablet 25 mg PO BID #180 tab 01/29/19 Allergies Allergy/AdvReac Type Severity Reaction Status Date / Time fluconazole Allergy Severe SWEATING, Verified 03/24/19 09:45 SOB, NAUSEA diclofenac [DICLOFENAC] Allergy Intermediate RASH ON Verified 03/24/19 09:45 FACE; LIGHTHEADEDNESS Review of Systems Review of Systems Narrative: GENERAL: Denies chills, fatigue, malaise, fever, sweats, travel HEENT: Denies sinus pain, ear pain, sore throat, difficulty swallowing, neck pain RESPIRATORY: See HPI CARDIOVASCULAR: Denies chest pain, palpitations, orthopnea, edema GASTROINTESTINAL: Denies nausea, vomiting, abdominal pain, diarrhea, constipation, melena. : Denies dysuria, frequency, incontinence, hematuria, urinary retention, flank pain. MUSCULOSKELETAL: Denies weakness, joint pain, or bony pain SKIN: No rash, no erythema, no pruritus NEUROLOGIC: Denies weakness, dizziness, headache, numbness, change in speech, confusion PSYCHIATRIC: No concerning psychosocial issues. 12 point review of systems is negative except for those stated above and HPI Patient History Medical History (Updated 12/22/19 @ 18:37 by Velvet Billy DO) Alcohol abuse (Chronic) Hypertension (Chronic) Syncope (Acute) Surgical History History of nephrectomy (Resolved 1977) Hx of appendectomy (Resolved 1977) Hx of hernia repair (Resolved 1999) Family History Father Congestive heart failure Diabetes mellitus COPD (chronic obstructive pulmonary disease) Mother Hypertension Diabetes mellitus Cancer Social History Smoking Status: Current every day smoker alcohol intake: current (5-6 beers/ day) substance use type: marijuana Smoking Status: Current every day smoker tobacco type: cigarettes alcohol intake frequency: 3 or more drinks per day Alcohol type: beer Substance Use Type: marijuana Exam Initial Vital Signs Initial Vital Signs: Vital Signs Temperature 99.3 F 12/22/19 13:58 Pulse Rate 124 H 12/22/19 13:58 Respiratory Rate 21 12/22/19 13:58 Blood Pressure 186/98 H 12/22/19 13:58 Pulse Oximetry 98 12/22/19 13:58 GENERAL: Well-appearing, well-nourished and in no acute distress. HEENT: Head atraumatic,EOMI, pupils reactive, face symmetric CARDIOVASCULAR: Regular rate and rhythm without murmurs, rubs or gallops. RESPIRATORY: Breath sounds equal bilaterally, no wheezes rales or rhonchi. ABDOMEN: Soft, nontender. Normoactive bowel sounds all 4 quadrants. No guarding or rebound. EXTREMITIES: Normal range of motion, no clubbing or edema. Neurovascularly intact NEUROLOGICAL: Alert and oriented x4.Normal gait and speech. SKIN: Warm, dry, no laceration, no petechiae, no rashes or lesions. Scores PERC Score Age greater than or equal to 50 years: Yes Heart rate greater than or equal to 100 bpm: No Room Air O2 Sat less than 95%: No Unilateral leg swelling: No Recent trauma or surgery: No Hemoptysis: No Prior PE or DVT: No Hormone Use: No Total PERC Score: 1 Wells' Criteria for PE Clinical signs and symptoms of DVT: No PE is #1 Dx or equally likely: No Heart rate > 100: No Immobilization at least 3 days or surg in previous 4 weeks: No History of PE or DVT: No Hemoptysis: No Malignancy w/Treatment within 6 months or palliative: No Wells' PE Score total: 0 Course Orders Ordered: ED Orders 12/22/19 14:04 Complete Blood Count AUTO DIFF Stat Comprehensive Metabolic Panel Stat Lipase Stat NT-proBNP (BNP-Adult 18+) Stat Troponin & CK Cardiac Panel Stat 12/22/19 14:41 XR chest 2V Stat 12/22/19 17:07 Troponin I Stat Discontinued Medications Albuterol (Ventolin Hfa) 2 puff INH NOW ONE Stop: 12/22/19 14:40 Last Admin: 12/22/19 14:54 Dose: 2 puff Documented by: ARETHA Sodium Chloride (Normal Saline 0.9%) 1,000 mls @ 1,000 mls/hr IV CONT BIRDIE Last Infusion: 12/22/19 16:38 Dose: 0 mls/hr Documented by: Admin: 12/22/19 14:46 Dose: 1,000 mls/hr Documented by: MARCIAL Metoprolol Tartrate (Lopressor) 5 mg IV NOW ONE Stop: 12/22/19 17:28 Last Admin: 12/22/19 17:33 Dose: 5 mg Documented by: CHRIS Vital Signs Vital signs: Vital Signs - 8 hr 12/22/19 13:58 12/22/19 14:30 12/22/19 14:54 Temperature 99.3 F Pulse Rate 124 H 87 Respiratory Rate 21 14 Blood Pressure 186/98 H Blood Pressure [Left Arm] 192/109 H Pulse Oximetry 98 98 12/22/19 16:09 12/22/19 16:38 12/22/19 17:15 Temperature 98.3 F Pulse Rate 75 96 H 105 H Respiratory Rate 18 20 Blood Pressure Blood Pressure [Left Arm] 202/98 H 185/107 H 185/109 H Pulse Oximetry 97 98 12/22/19 17:40 12/22/19 18:20 12/22/19 18:42 Temperature 98.5 F Pulse Rate 67 70 77 Respiratory Rate 20 18 16 Blood Pressure Blood Pressure [Left Arm] 197/115 H 176/116 H 184/114 H Pulse Oximetry 98 98 100 MDM - Arrhythmia/Palpitations Lab Data Attestation: I reviewed the patient's lab results. Result diagrams: 12/22/19 14:04 12/22/19 14:04 Labs: Lab Results 12/22/19 12/22/19 12/22/19 Range/Units 14:04 14:04 14:04 WBC 8.6 (4.5-11.0) X10^3/uL RBC 3.97 L (4.5-5.9) X10^6/uL Hgb 13.7 (13.5-17.5) g/dL Hct 39.9 L (41-53) % MCV 100.5 H (80-100) fL MCH 34.5 H (26-34) PG MCHC 34.3 (30-36) % RDW 13.9 (11.6-14.8) % Plt Count 236 (150-400) X10^3/uL Neut % (Auto) 82.6 H (50-75) % Lymph % (Auto) 7.3 L (25-40) % [place] % (Auto) 9.7 (3-14) % Eos % (Auto) 0.1 L (2-4) % Baso % (Auto) 0.3 (0-2) % Neut # (Auto) 7100 H (3571-5448) /uL Lymph # (Auto) 600 L (9631-6084) /uL [place] # (Auto) 800 (0-900) /uL Eos # (Auto) 0 (0-450) /uL Baso # (Auto) 0 (0-100) /uL Sodium 135 L (137-145) mmol/L Potassium 4.1 (3.4-5.1) mmol/L Chloride 97 L (98-107) mmol/L Carbon Dioxide 30 (22-32) mmol/L BUN 7 L (9-20) mg/dL Creatinine 0.71 (0.66-1.25) mg/dL Estimated GFR > 60.0 (>60) mL/min BUN/Creatinine Ratio 9.9 (6-22) Glucose 129 H (70-100) mg/dL Calcium 10.2 (8.4-10.2) mg/dL Total Bilirubin 0.7 (0.2-1.3) mg/dL AST 231 H (17-59) IU/L ALT 141 H (<50) IU/L Alkaline Phosphatase 64 (38-126) U/L Total Creatine Kinase 120 (55-170) U/L CK-MB (CK-2) 0.88 (<2.37) ng/mL CK-MB (CK-2) Rel Index 0.7 L (1.5-5.0) % Troponin I < 0.012 (0.01-0.034) ng/mL NT-Pro-B Natriuret Pep 57 (<125) pg/mL Total Protein 7.8 (6.3-8.2) g/dL Albumin 4.6 (3.5-5.0) g/dL Globulin 3.2 (1.7-4.1) g/dL Albumin/Globulin Ratio 1.4 (1.0-2.8) Lipase 536 H (23-300) U/L COVID-19 PCR (Negative) 12/22/19 12/22/19 Range/Units 14:55 17:07 WBC (4.5-11.0) X10^3/uL RBC (4.5-5.9) X10^6/uL Hgb (13.5-17.5) g/dL Hct (41-53) % MCV (80-100) fL MCH (26-34) PG MCHC (30-36) % RDW (11.6-14.8) % Plt Count (150-400) X10^3/uL Neut % (Auto) (50-75) % Lymph % (Auto) (25-40) % [place] % (Auto) (3-14) % Eos % (Auto) (2-4) % Baso % (Auto) (0-2) % Neut # (Auto) (1194-2914) /uL Lymph # (Auto) (6393-3230) /uL [place] # (Auto) (0-900) /uL Eos # (Auto) (0-450) /uL Baso # (Auto) (0-100) /uL Sodium (137-145) mmol/L Potassium (3.4-5.1) mmol/L Chloride (98-107) mmol/L Carbon Dioxide (22-32) mmol/L BUN (9-20) mg/dL Creatinine (0.66-1.25) mg/dL Estimated GFR (>60) mL/min BUN/Creatinine Ratio (6-22) Glucose (70-100) mg/dL Calcium (8.4-10.2) mg/dL Total Bilirubin (0.2-1.3) mg/dL AST (17-59) IU/L ALT (<50) IU/L Alkaline Phosphatase (38-126) U/L Total Creatine Kinase (55-170) U/L CK-MB (CK-2) (<2.37) ng/mL CK-MB (CK-2) Rel Index (1.5-5.0) % Troponin I < 0.012 (0.01-0.034) ng/mL NT-Pro-B Natriuret Pep (<125) pg/mL Total Protein (6.3-8.2) g/dL Albumin (3.5-5.0) g/dL Globulin (1.7-4.1) g/dL Albumin/Globulin Ratio (1.0-2.8) Lipase (23-300) U/L COVID-19 PCR Negative (Negative) Imaging Data Chest x-ray: Radiologist's Impresson: PROCEDURE: XR CHEST 2V INDICATIONS: sob TECHNIQUE: 2 views of the chest were acquired. COMPARISON: [facility], , XR CHEST 1V, 06/15/2019, 20:15. FINDINGS: Surgical changes and devices: None. Lungs and pleura: Lungs are clear. No pleural effusions or pneumothorax. Mediastinum: Mediastinal contours are normal. Heart size is normal. Bones and chest wall: No suspicious bony abnormalities. Soft tissues appear unremarkable. IMPRESSION: No acute disease Dictated by: Caleb Field M.D. on 12/22/2019 at 14:59 ECG Data Attestation: I personally reviewed and interpreted this ECG as follows: Interpretation: Rhythm rate 104 p.r. interval 156 QRS is [address] elevation depression or T-wave inversion MDM Narrative Medical decision making narrative: The patient is not hypoxic or showing any signs of respiratory distress, he states that he sometimes feels this way when his blood pressure is elevated. He is noncompliant with his metoprolol which he is supposed to take twice a day he has the bottle with him actually and is told that he does not take it. He is given 1 dose of IV Lopressor his blood pressure responded minimally he says he started having some numbness tingling in his legs. Or bilaterally which comes and goes. At this time he shows no signs of end-organ damage. He has COVID test which is pending. He is low risk for PE. He is actually feeling better after albuterol inhaler as well he is given the to go home with. I instructed that he needs to take his blood pressure medication as directed. Discharge Plan Departure Patient Disposition: Home Clinical Impression: Hypertension Qualifiers: Hypertension type: essential hypertension Qualified Code(s): I10 - Essential (primary) hypertension Discharge Date/Time: 12/22/19 18:50 Instructions: Essential Hypertension Activity Restrictions/Additional Instructions: *You have been diagnosed with hypertension *What to do: Recommend that you take your blood pressure medication regularly as prescribed. You may require further cardiac workup. I also recommend home isolation please see instructions below until your COVID-19 testing has returned in 1-2 days *Continue to take medications as directed *Follow up with your primary care provider in 2-3 days *Return to ER if you should have increasing chest pain, shortness of breath, weakness or any new, worsening or concerning symptoms CDC Guidelines for home isolation: - Stay away from others - Limit contact with pets and animals: If you must care for a pet, wash your hands before and after interacting with them - Wear a mask if you are sick - Cover your mouth and nose with a tissue when you cough or sneeze. Dispose of t issues in a lined trash can and wash your hands immediately with soap and water for at least 20 seconds. If soap and water are not available, clean hands with alcohol-based hand sketch artist that contains at least 60% alcohol. - Clean your hands often with soap and water for at least 20 seconds - Avoid touching your eyes, nose and mouth with unwashed hands - Do not share dishes, drinking glasses, cups, eating utensils, towels, or bedding with other people in your home. After using these items, wash them thoroughly with soap and water or put in the forensic artist. - Clean high-touch surfaces in your isolation area (?sick room? and bathroom) every day; let a caregiver clean and disinfect high-touch surfaces in other areas of the home. Clean the area or item with soap and water or another deterg ent if it is dirty. Then, use a household disinfectant. Seek medical attention, but call first: - Seek medical care right away if your illness is worsening (for example, if you have difficulty breathing). - Call your doctor before going in: Before going to the doctor?s office or emergency room, call ahead and tell them your symptoms. They will tell you what to do. - If possible, put on a facemask before you enter the building. If you can?t put on a facemask, try to keep a safe distance from other people (at least 6 feet away). This will help protect the people in the office or waiting room. - Follow care instructions from your healthcare provider and local health department: Your local health authorities will give instructions on checking your symptoms and reporting information. Emergency warning signs for COVID-19: - Difficulty breathing or shortness of breath - Persistent pain or pressure in the chest - New confusion or inability to arouse - Bluish lips or face Prescriptions: No Action aspirin 81 mg tablet,chewable 81 mg PO DAILY Qty: 30 RF: 0 cholecalciferol (vitamin D3) 4,000 unit capsule 4,000 unit PO DAILY Qty: 30 RF: 0 atorvastatin 20 mg tablet 20 mg PO DAILY Qty: 90 RF: 3 metoprolol tartrate 25 mg tablet 25 mg PO BID Qty: 180 RF: 1 Referrals: Elvin Payne MD [Primary Care Provider] -
[2019-12-22] MEDS: SODIUM CHLORIDE 0.9% 1,000 ML 1000 ML IV (14:46)
[2019-12-22 14:49] LABS: Add Manual Diff / Slide Review NO; Basophils Absolute Auto 0 /uL (0-100); Basophils Percent Auto 0.3 % (0-2); Eosinophils Absolute Auto 0 /uL (0-450); Eosinophils Percent Auto 0.1 % (2-4); Hematocrit 39.9 % (41-53); Hemoglobin 13.7 g/dL (13.5-17.5); Lymphocytes Absolute Auto 600 /uL (1100-4500); Lymphocytes Percent Auto 7.3 % (25-40); Mean Corpuscular HGB Conc 34.3 % (30-36); Mean Corpuscular Hemoglobin 34.5 PG (26-34); Mean Corpuscular Volume 100.5 fL (80-100); Monocytes Absolute Auto 800 /uL (0-900); Monocytes Percent Auto 9.7 % (3-14); Neutrophils Absolute Auto 7100 /uL (1500-7000); Neutrophils Percent Auto 82.6 % (50-75); Platelet Count 236 X10^3/uL (150-400); Red Blood Cell Count 3.97 X10^6/uL (4.5-5.9); Red Cell Distribution Width 13.9 % (11.6-14.8); White Blood Cell Count 8.6 X10^3/uL (4.5-11.0)
[2019-12-22] MEDS: ALBUTEROL HFA 60 PUFF/8 GM INH INH (14:54)
[2019-12-22 14:55] LABS: Alanine Aminotransferase 141 IU/L (<50); Albumin 4.6 g/dL (3.5-5.0); Albumin Globulin Ratio 1.4 (1.0-2.8); Alkaline Phosphatase 64 U/L (38-126); Aspartate Aminotransferase 231 IU/L (17-59); BUN Creatinine Ratio 9.9 (6-22); Bilirubin Total 0.7 mg/dL (0.2-1.3); Blood Urea Nitrogen 7 mg/dL (9-20); Calcium 10.2 mg/dL (8.4-10.2); Carbon Dioxide 30 mmol/L (22-32); Chloride 97 mmol/L (98-107); Creatine Kinase 120 U/L (55-170); Estimated Glomerular Filt Rate > 60.0 mL/min (>60); Globulin 3.2 g/dL (1.7-4.1); Glucose 129 mg/dL (70-100); HEMOLYSIS 23 (0-50); Lipase 536 U/L (23-300); Potassium 4.1 mmol/L (3.4-5.1); Sodium 135 mmol/L (137-145); Total Protein 7.8 g/dL (6.3-8.2)
[2019-12-22 15:04] LABS: NT-proBNP (BNP-Adult 18+) 57 pg/mL (<125)
[2019-12-22 15:06] LABS: Troponin I < 0.012 ng/mL (0.01-0.034)
[2019-12-22 15:10] LABS: CKMB % Relative Index 0.7 % (1.5-5.0); Creatine Kinase MB 0.88 ng/mL (<2.37)
[2019-12-22] MEDS: METOPROLOL TARTRATE 5 MG/5 ML INJ IV (17:33)
[2019-12-22 17:38] LABS: Troponin I < 0.012 ng/mL (0.01-0.034)
[2019-12-22 18:16] LABS: COVID19 -Nasal RAPID Negative (Negative)
== END 2019-12-22 18:50 | disposition home or self-care (01) ==
PROVIDERS: Emergency Provider Emergency Medicine; PCP Student in an Organized Health Care Education/Training Program
DX: I10 Essential (primary) hypertension (principal); R06.02 Shortness of breath
CPT/HCPCS: 36415; 71046; 80053; 82550; 82553; 83690; 83880; 84484; 85025; 87635; 93005; 94640; 96361; 96374; 99284

== ENCOUNTER → 2020-01-03 11:23 | Outpatient (CLI) | payer OTHER, MEDICAID, SELFPAY ==
[2020-01-04 08:38] LABS: COVID19 Sendout Not detected (Not Detect)
== END ==
PROVIDERS: PCP Student in an Organized Health Care Education/Training Program; Visit Provider Nurse Practitioner
DX: Z01.812 Encounter for preprocedural laboratory examination (principal)
CPT/HCPCS: 87635

== ENCOUNTER → 2020-01-06 07:14 | Outpatient (CLI) | payer OTHER, MEDICAID, SELFPAY ==
--- NOTE | 2020-01-06 08:17 | PM.TREADMILL ---
Cardiac Stress Test Report Referral & Results Date Patient Seen: 01/06/20 Time Patient Seen: 08:00 Requesting provider: Elvin Payne Indication: Chest pain with hypertension Rest ECG: Normal sinus rhythm Procedure Note: Today following both written and verbal informed consent, the patient was exercised according to a standard [place] protocol. The patient exercised for a total of 10 minutes 21 seconds achieving a maximum heart rate of 150 for. Patient's maximum systolic blood pressure was 180. This was an estimated 12.8 METs. No signs or symptoms of angina. Normal hemodynamic response to exercise. Presenting symptoms not reproduced with exercise. Above average exercise capacity (BONITA-10% on active scale). Occasional PVCs, but no other change in rhythm or ST shifts. Impression: Low probability for ischemia. Please note: Actual ECG tracings can be found in the PACS system.
== END ==
PROVIDERS: PCP Student in an Organized Health Care Education/Training Program; Referring Provider Student in an Organized Health Care Education/Training Program; Visit Provider Student in an Organized Health Care Education/Training Program
DX: I16.1 Hypertensive emergency (principal); R07.89 Other chest pain
CPT/HCPCS: 93016; 93017; 93018

== ENCOUNTER 2020-10-02 13:34 | Emergency (ER) | payer OTHER, MEDICAID, SELFPAY ==
[2020-10-02 13:43] VITALS: BP 155/91; PULSE 55; RESP 18; TEMP 37.2; O2SAT 99
--- NOTE | 2020-10-02 13:48 | DI.RAD.S_ITS ---
PROCEDURE: XR CHEST 1V INDICATIONS: chest pain TECHNIQUE: One view of the chest was acquired. COMPARISON: [facility], CR, XR CHEST 2V, 12/22/2019, 14:35. FINDINGS: Surgical changes and devices: None. Lungs and pleura: Lungs are clear. No pleural effusions or pneumothorax. Mediastinum: Mediastinal contours appear normal. Heart size is normal. Bones and chest wall: No suspicious bony lesions. Overlying soft tissues appear unremarkable. IMPRESSION: No acute cardiopulmonary abnormality. Dictated by: Ricardo Arndt M.D. on 10/02/2020 at 13:28 Approved by: Ricardo Arndt M.D. on 10/02/2020 at 13:31
[2020-10-02 14:22] LABS: Add Manual Diff / Slide Review NO; Basophils Absolute Auto 100 /uL (0-100); Basophils Percent Auto 1.2 % (0-2); Eosinophils Absolute Auto 200 /uL (0-450); Eosinophils Percent Auto 2.7 % (2-4); Hematocrit 38.6 % (41-53); Lymphocytes Absolute Auto 1800 /uL (1100-4500); Lymphocytes Percent Auto 31.6 % (25-40); Mean Corpuscular HGB Conc 33.5 % (30-36); Mean Corpuscular Hemoglobin 33.9 PG (26-34); Monocytes Absolute Auto 700 /uL (0-900); Monocytes Percent Auto 12.8 % (3-14); Neutrophils Absolute Auto 2900 /uL (1500-7000); Neutrophils Percent Auto 51.7 % (50-75); Platelet Count 214 X10^3/uL (150-400); Red Blood Cell Count 3.82 X10^6/uL (4.5-5.9); Red Cell Distribution Width 15.2 % (11.6-14.8); White Blood Cell Count 5.7 X10^3/uL (4.5-11.0)
[2020-10-02 14:25] LABS: INR 0.9 (0.9-1.3); Prothrombin Time 10.6 SECONDS (10.1-12.7)
[2020-10-02 14:28] LABS: PTT Partial Thromboplastin Tim 28 SECONDS (26.4-36.2)
[2020-10-02 14:29] LABS: Alanine Aminotransferase 71 IU/L (<50); Albumin 4.4 g/dL (3.5-5.0); Albumin Globulin Ratio 1.4 (1.0-2.8); Alkaline Phosphatase 50 U/L (38-126); Aspartate Aminotransferase 83 IU/L (17-59); BUN Creatinine Ratio 12.2 (6-22); Bilirubin Total 0.2 mg/dL (0.2-1.3); Blood Urea Nitrogen 11 mg/dL (9-20); Calcium 9.3 mg/dL (8.4-10.2); Carbon Dioxide 28 mmol/L (22-32); Chloride 100 mmol/L (98-107); Creatine Kinase 67 U/L (55-170); Estimated Glomerular Filt Rate > 60.0 mL/min (>60); Globulin 3.1 g/dL (1.7-4.1); Glucose 132 mg/dL (70-100); HEMOLYSIS < 15 (0-50); Lipase 594 U/L (23-300); Potassium 4.9 mmol/L (3.4-5.1); Sodium 136 mmol/L (137-145); Total Protein 7.5 g/dL (6.3-8.2)
[2020-10-02 14:41] LABS: Troponin I < 0.012 ng/mL (0.01-0.034)
--- NOTE | 2020-10-02 15:34 | ED_ITS ---
HPI - Syncope General Chief Complaint: Syncope Stated Complaint: Had A Little Pass Out Time Seen by Provider: 10/02/20 15:01 Source: patient and family Mode of arrival: Ambulatory Limitations: no limitations History of Present Illness HPI narrative: Patient is a 60-year-old male with history of alcoholism presenti after syncopal episode. He said he was sitting in the passenger seat in the vehicle his significant other was driving when he suddenly passed out. He was drooling and she was unable to wake him up despite shaking him. He admits to drinking alcohol 2x16 oz and passed out. He does not think that that much beer would cause him to pass out. Apparently his significant other found him drooling EMS was called he was easily arousable for them and recommended he come to the ED. He denies any trauma he has no headache he states that he has been drinking his normal amount of alcohol and does not think that he went through withdrawals. He is feeling well now and has no complaints. He is unsure of the prodrome all events leading up to his syncopal episode. Currently denies chest pain palpitations shortness of breath weakness numbness tingling nausea or vomiting. MD complaint: loss of consciousness Related Data Home Medications Medication Instructions Recorded Confirmed aspirin 81 mg tablet,delayed 81 mg PO DAILY 12/24/19 12/24/19 release Previous Rx's Medication Instructions Recorded atorvastatin 20 mg tablet 20 mg PO DAILY #90 tab 12/24/19 metoprolol tartrate 25 mg tablet 25 mg PO BID #180 tab 06/29/20 Allergies Allergy/AdvReac Type Severity Reaction Status Date / Time fluconazole Allergy Severe SWEATING, Verified 01/03/20 11:30 SOB, NAUSEA diclofenac [DICLOFENAC] Allergy Intermediate RASH ON Verified 01/03/20 11:30 FACE; LIGHTHEADEDNESS Review of Systems Review of Systems ROS Unobtainable: All systems reviewed & are unremarkable except as noted in HPI and below Constitutional Constitutional: Denies chills, Denies fever(s), Denies lethargy and Denies weakness ENT Ears, Nose, Mouth, and Throat: Denies change in voice, Denies neck pain and Denies sore throat Cardiovascular Cardiovascular: Denies chest pain, Reports syncope, Denies dyspnea and Denies dyspnea on exertion Respiratory Respiratory: Denies cough, Denies dyspnea, Denies dyspnea on exertion and Denies wheezing Gastrointestinal Gastrointestinal: Denies abdominal pain, Denies change in bowel habits, Denies diarrhea, Denies nausea and Denies vomiting Musculoskeletal Musculoskeletal: Denies back pain, Denies myalgias and Denies neck pain Integumentary/Breasts Skin/Breast: Denies pruritus, Denies erythema, Denies rash and Denies wounds Neurologic Neurologic: Reports syncope and Denies weakness Allergic/Immunologic Allergic/Immunologic: Denies wheezing Patient History Medical History (Updated 10/02/20 @ 16:41 by Velvet Billy DO) Alcohol abuse Hypertension Syncope Surgical History History of nephrectomy (1977) Hx of appendectomy (1977) Hx of hernia repair (1999) Family History Father Congestive heart failure Diabetes mellitus COPD (chronic obstructive pulmonary disease) Mother Hypertension Diabetes mellitus Cancer Social History Smoking Status: Current every day smoker alcohol intake: current (5-6 beers/ day) substance use type: marijuana Smoking Status: Current every day smoker tobacco type: cigarettes alcohol intake frequency: 3 or more drinks per day Alcohol type: beer Substance Use Type: marijuana Exam Initial Vital Signs Initial Vital Signs: Vital Signs Temperature 99.0 F 10/02/20 13:43 Pulse Rate 55 L 10/02/20 13:43 Respiratory Rate 18 10/02/20 13:43 Blood Pressure 155/91 H 10/02/20 13:43 Pulse Oximetry 99 10/02/20 13:43 GENERAL: Well-appearing, well-nourished and in no acute distress. Does not appear intoxicated HEENT: Head atraumatic,EOMI, pupils reactive, face symmetric, moist mucous membranes NECK: No vertebral tenderness no step-off CARDIOVASCULAR: Regular rate and rhythm without murmurs, rubs or gallops. RESPIRATORY: Breath sounds equal bilaterally, no wheezes rales or rhonchi. ABDOMEN: Soft, nontender. Normoactive bowel sounds all 4 quadrants. No guarding or rebound. EXTREMITIES: Normal range of motion, no clubbing or edema. Neurovascularly intact NEUROLOGICAL: Alert and oriented x4.Normal gait and speech. Cranial nerves II through XII grossly intact. Good [id number], good [id number], strength equal bilaterally, no dysarthria or aphasia, sensation in tact to soft touch bilaterally, no visual changes, no facial droop SKIN: Warm, dry, no laceration, no petechiae, no rashes or lesions. Scores GCS Kendal coma scale eye opening: Spontaneous [place] coma scale verbal response: Orientated [place] coma scale motor response: Obey commands Kendal coma scale total score: 15 NIH Stroke Scale Level of Conciousness: Alert, keenly responsive Ask month/age: Answers both questions correctly. Open/close eyes, close hand: Performs both tasks correctly Best gaze horizontal: Normal Visual sandoval: No visual loss Facial palsy: Normal symetrical movement Left arm drift: No drift for full 10 sec Right arm drift: No drift for full 10 sec Left leg drift: No drift for full 5 sec Right leg drift: No drift for full 5 sec Limb ataxia: Absent Sensory on face/arms/legs: Normal, no sensory loss Best language: No aphasia, normal Dysarthria: Normal Extinction or inattention: No abnormality Total NIH Stroke scale score: 0 Course Orders Ordered: ED Orders 10/02/20 13:48 XR chest 1V Stat EKG-12 Lead Stat 10/02/20 14:00 Complete Blood Count AUTO DIFF Stat Comprehensive Metabolic Panel Stat Lipase Stat Partial Thromboplastin Time Stat Prothrombin Time INR Stat Troponin & CK Cardiac Panel Stat 10/02/20 15:38 CT head/brain wo con Stat 10/02/20 15:45 Ethanol (ETOH) Stat Prolactin Stat Vital Signs Vital signs: Vital Signs - 8 hr 10/02/20 13:43 10/02/20 16:47 Temperature 99.0 F Pulse Rate 55 L 62 Respiratory Rate 18 16 Blood Pressure 155/91 H 133/80 Pulse Oximetry 99 100 MDM - Syncope Lab Data Attestation: I reviewed the patient's lab results. Result diagrams: 10/02/20 14:00 10/02/20 14:00 Labs: Lab Results 10/02/20 10/02/20 10/02/20 Range/Units 14:00 14:00 14:00 WBC 5.7 (4.5-11.0) X10^3/uL RBC 3.82 L (4.5-5.9) X10^6/uL Hgb 13.0 L (13.5-17.5) g/dL Hct 38.6 L (41-53) % MCV 101.0 H (80-100) fL MCH 33.9 (26-34) PG MCHC 33.5 (30-36) % RDW 15.2 H (11.6-14.8) % Plt Count 214 (150-400) X10^3/uL Neut % (Auto) 51.7 (50-75) % Lymph % (Auto) 31.6 (25-40) % [place] % (Auto) 12.8 (3-14) % Eos % (Auto) 2.7 (2-4) % Baso % (Auto) 1.2 (0-2) % Neut # (Auto) 2900 (0262-5207) /uL Lymph # (Auto) 1800 (6808-2978) /uL [place] # (Auto) 700 (0-900) /uL Eos # (Auto) 200 (0-450) /uL Baso # (Auto) 100 (0-100) /uL PT 10.6 (10.1-12.7) SECONDS INR 0.9 (0.9-1.3) APTT 28 (26.4-36.2) SECONDS Sodium 136 L (137-145) mmol/L Potassium 4.9 (3.4-5.1) mmol/L Chloride 100 (98-107) mmol/L Carbon Dioxide 28 (22-32) mmol/L BUN 11 (9-20) mg/dL Creatinine 0.90 (0.66-1.25) mg/dL Estimated GFR > 60.0 (>60) mL/min BUN/Creatinine Ratio 12.2 (6-22) Glucose 132 H (70-100) mg/dL Calcium 9.3 (8.4-10.2) mg/dL Total Bilirubin 0.2 (0.2-1.3) mg/dL AST 83 H (17-59) IU/L ALT 71 H (<50) IU/L Alkaline Phosphatase 50 (38-126) U/L Total Creatine Kinase 67 (55-170) U/L CK-MB (CK-2) TNP CK-MB (CK-2) Rel Index TNP Troponin I < 0.012 (0.01-0.034) ng/mL Total Protein 7.5 (6.3-8.2) g/dL Albumin 4.4 (3.5-5.0) g/dL Globulin 3.1 (1.7-4.1) g/dL Albumin/Globulin Ratio 1.4 (1.0-2.8) Lipase 594 H (23-300) U/L Prolactin (3.7-17.9) ng/mL Ethyl Alcohol ( - 10) mg/dL 10/02/20 10/02/20 Range/Units 15:45 15:45 WBC (4.5-11.0) X10^3/uL RBC (4.5-5.9) X10^6/uL Hgb (13.5-17.5) g/dL Hct (41-53) % MCV (80-100) fL MCH (26-34) PG MCHC (30-36) % RDW (11.6-14.8) % Plt Count (150-400) X10^3/uL Neut % (Auto) (50-75) % Lymph % (Auto) (25-40) % [place] % (Auto) (3-14) % Eos % (Auto) (2-4) % Baso % (Auto) (0-2) % Neut # (Auto) (0209-3188) /uL Lymph # (Auto) (1209-4594) /uL [place] # (Auto) (0-900) /uL Eos # (Auto) (0-450) /uL Baso # (Auto) (0-100) /uL PT (10.1-12.7) SECONDS INR (0.9-1.3) APTT (26.4-36.2) SECONDS Sodium (137-145) mmol/L Potassium (3.4-5.1) mmol/L Chloride (98-107) mmol/L Carbon Dioxide (22-32) mmol/L BUN (9-20) mg/dL Creatinine (0.66-1.25) mg/dL Estimated GFR (>60) mL/min BUN/Creatinine Ratio (6-22) Glucose (70-100) mg/dL Calcium (8.4-10.2) mg/dL Total Bilirubin (0.2-1.3) mg/dL AST (17-59) IU/L ALT (<50) IU/L Alkaline Phosphatase (38-126) U/L Total Creatine Kinase (55-170) U/L CK-MB (CK-2) CK-MB (CK-2) Rel Index Troponin I (0.01-0.034) ng/mL Total Protein (6.3-8.2) g/dL Albumin (3.5-5.0) g/dL Globulin (1.7-4.1) g/dL Albumin/Globulin Ratio (1.0-2.8) Lipase (23-300) U/L Prolactin 18.1 H (3.7-17.9) ng/mL Ethyl Alcohol 266 H ( - 10) mg/dL Imaging Data CT scan - head: Radiologist's Impression: PROCEDURE: CT HEAD/BRAIN WO CON INDICATIONS: syncope ETOH TECHNIQUE: Noncontrast 4.5 mm thick angled axial sections acquired from the foramen magnum to the vertex, with coronal and sagittal reformats. For radiation dose reduction, the following was used: automated exposure control, adjustment of mA and/or kV according to patient size. COMPARISON: [facility], CT, HEAD WITHOUT CONTRAST, 11/08/2014, 20:28. FINDINGS: Image quality: Excellent. CSF spaces: Basal cisterns are patent. No extra-axial fluid collections. The ventricles are symmetric in size and shape. Brain: No intracranial bleeds or masses. There is cerebral volume loss for age , with resultant ventricular and sulcal prominence. There are periventricular and deep white matter chronic small vessel ischemic changes. There is intracranial internal carotid artery atherosclerosis. Skull and face: Calvarium and visualized facial bones appear intact, without suspicious lesions. Sinuses: Visualized sinuses and mastoids are clear. IMPRESSION: No acute intracranial abnormality. Dictated by: Ricardo Arndt M.D. on 10/02/2020 at 14:59 ECG Data Attestation: I personally reviewed and interpreted this ECG as follows: Prior ECG tracings: available for review Interpretation: Normal sinus rhythm rate 55 as needed interval 174 QRS [address] changes no T-wave inversions early repolarization noted MDM Narrative Medical decision making narrative: Patient's blood work exam head CT are overall reassuring. At this time I suspect alcohol is likely cause of his syncopal episode. It does not appear that he is in withdrawal having seizure. He is neurologically intact and appears well. Discharge Plan Departure Patient Disposition: Home Clinical Impression: Alcohol intoxication Qualifiers: Complication of substance-induced condition: uncomplicated Qualified Code(s): F10.920 - Alcohol use, unspecified with intoxication, uncomplicated Instructions: Alcohol Use Disorder Activity Restrictions/Additional Instructions: *You have been diagnosed with alcohol intoxication *What to do: At this time you likely passed out secondary to alcohol. Blood work and head CT are overall reassuring. There is no evidence of seizure or withdrawal *Continue to take medications as directed *Follow up with your primary care provider in 2-3 days *Return to ER if you should have recurrent episode of passing out, chest pain, palpitations, weakness numbness tingling or any new, worsening or concerning symptoms Prescriptions: No Action metoprolol tartrate 25 mg tablet 25 mg PO BID Qty: 180 RF: 1 atorvastatin 20 mg tablet 20 mg PO DAILY Qty: 90 RF: 3 aspirin 81 mg tablet,delayed release (DR/EC) 81 mg PO DAILY RF: 0 Referrals: Elvin Payne MD [Primary Care Provider] -
--- NOTE | 2020-10-02 15:38 | DI.CT.S_ITS ---
PROCEDURE: CT HEAD/BRAIN WO CON INDICATIONS: syncope ETOH TECHNIQUE: Noncontrast 4.5 mm thick angled axial sections acquired from the foramen magnum to the vertex, with coronal and sagittal reformats. For radiation dose reduction, the following was used: automated exposure control, adjustment of mA and/or kV according to patient size. COMPARISON: [facility], CT, HEAD WITHOUT CONTRAST, 11/08/2014, 20:28. FINDINGS: Image quality: Excellent. CSF spaces: Basal cisterns are patent. No extra-axial fluid collections. The ventricles are symmetric in size and shape. Brain: No intracranial bleeds or masses. There is cerebral volume loss for age, with resultant ventricular and sulcal prominence. There are periventricular and deep white matter chronic small vessel ischemic changes. There is intracranial internal carotid artery atherosclerosis. Skull and face: Calvarium and visualized facial bones appear intact, without suspicious lesions. Sinuses: Visualized sinuses and mastoids are clear. IMPRESSION: No acute intracranial abnormality. Dictated by: Ricardo Arndt M.D. on 10/02/2020 at 14:59 Approved by: Ricardo Arndt M.D. on 10/02/2020 at 15:01
[2020-10-02 16:06] LABS: Ethanol (ETOH) 266 mg/dL
[2020-10-02 16:23] LABS: Prolactin 18.1 ng/mL (3.7-17.9)
[2020-10-02 16:47] VITALS: BP 133/80; PULSE 62; RESP 16; O2SAT 100
== END 2020-10-02 16:47 | disposition home or self-care (01) ==
PROVIDERS: Emergency Provider Emergency Medicine; PCP Student in an Organized Health Care Education/Training Program
DX: F10.920 Alcohol use, unspecified with intoxication, uncomplicated (principal)
CPT/HCPCS: 36415; 70450; 71045; 80053; 80320; 82550; 83690; 84146; 84484; 85025; 85610; 85730; 93005; 99282; 99284

== ENCOUNTER 2020-11-21 21:05 | Observation (INO) | payer OTHER, MEDICAID, SELFPAY ==
[2020-11-21] VITALS (8 sets, daily range): BP systolic 175–187; BP diastolic 90–112; PULSE 104–122; RESP 18–57; TEMP 36.6; O2SAT 77–100; BMI 23.0
--- NOTE | 2020-11-21 21:23 | DI.RAD.S_ITS ---
PROCEDURE: XR CHEST 1V INDICATIONS: GI bleed, muffled voice TECHNIQUE: One view of the chest was acquired. COMPARISON: [facility], CR, XR CHEST 1V, 10/02/2020, 14:07. FINDINGS: Surgical changes and devices: None. Lungs and pleura: Lungs are clear. No pleural effusions or pneumothorax. Mediastinum: Mediastinal contours appear normal. Heart size is normal. Bones and chest wall: No suspicious bony lesions. Overlying soft tissues appear unremarkable. IMPRESSION: No acute cardiopulmonary disease process. Dictated by: Kylah Manzanares MD, PhD on 11/21/2020 at 21:35 Approved by: Kylah Manzanares MD, PhD on 11/21/2020 at 21:35
[2020-11-21] MEDS: ONDANSETRON 4 MG/2 ML INJ IV (21:32)
[2020-11-21] MEDS: SODIUM CHLORIDE 0.9% 1,000 ML 1000 ML IV (21:32)
[2020-11-21 21:47] LABS: INR 0.9 (0.9-1.3); Prothrombin Time 10.6 SECONDS (10.1-12.7)
[2020-11-21 21:49] LABS: PTT Partial Thromboplastin Tim 27 SECONDS (26.4-36.2)
[2020-11-21 21:51] LABS: Alanine Aminotransferase 72 IU/L (<50); Albumin 5.1 g/dL (3.5-5.0); Albumin Globulin Ratio 1.5 (1.0-2.8); Alkaline Phosphatase 72 U/L (38-126); Aspartate Aminotransferase 85 IU/L (17-59); BUN Creatinine Ratio 12.4 (6-22); Blood Urea Nitrogen 11 mg/dL (9-20); Calcium 9.8 mg/dL (8.4-10.2); Carbon Dioxide 19 mmol/L (22-32); Chloride 94 mmol/L (98-107); Estimated Glomerular Filt Rate > 60.0 mL/min (>60); Globulin 3.5 g/dL (1.7-4.1); Glucose 195 mg/dL (70-100); HEMOLYSIS < 15 (0-50); Lipase 356 U/L (23-300); Potassium 3.8 mmol/L (3.4-5.1); Sodium 138 mmol/L (137-145); Total Protein 8.6 g/dL (6.3-8.2)
[2020-11-21 21:55] LABS: Add Manual Diff / Slide Review NO; Basophils Absolute Auto 100 /uL (0-100); Basophils Percent Auto 1.1 % (0-2); Eosinophils Absolute Auto 0 /uL (0-450); Hematocrit 40.7 % (41-53); Hemoglobin 13.7 g/dL (13.5-17.5); Lymphocytes Absolute Auto 400 /uL (1100-4500); Mean Corpuscular HGB Conc 33.6 % (30-36); Mean Corpuscular Hemoglobin 34.2 PG (26-34); Mean Corpuscular Volume 101.9 fL (80-100); Monocytes Absolute Auto 700 /uL (0-900); Monocytes Percent Auto 5.8 % (3-14); Neutrophils Absolute Auto 11700 /uL (1500-7000); Neutrophils Percent Auto 90.1 % (50-75); Platelet Count 185 X10^3/uL (150-400); Red Blood Cell Count 3.99 X10^6/uL (4.5-5.9); Red Cell Distribution Width 14.4 % (11.6-14.8); White Blood Cell Count 12.9 X10^3/uL (4.5-11.0)
[2020-11-21 22:02] LABS: Troponin I < 0.012 ng/mL (0.01-0.034)
[2020-11-21] MEDS: LORazepam 2 MG/ML INJ IV (22:15)
[2020-11-21] MEDS: METOCLOPRAMIDE 10 MG/2 ML INJ IV (22:16)
[2020-11-21] MEDS: PANTOPRAZOLE 40 MG VIAL IV (22:20)
[2020-11-21] MEDS: PANTOPRAZOLE 80 MG in SODIUM CHLORIDE 0.9% 80 ML 8 ML IV (22:21)
[2020-11-21] MEDS: OCTREOTIDE 500 MCG in SODIUM CHLORIDE 0.9% 100 ML 5.05 ML IV (22:27)
[2020-11-21] MEDS: OCTREOTIDE 100 MCG/ML VIAL 50 MCG IV (22:28)
--- NOTE | 2020-11-21 22:43 | ED.GENADULT ---
HPI - General Adult General Chief complaint: Abdominal Pain Stated complaint: Vomiting with blood Time Seen by Provider: 11/21/20 21:22 Source: patient Mode of arrival: Ambulatory History of Present Illness HPI narrative: 60-year-old done with history of hypertension and alcohol use disorder presents with severe vomiting that is becoming more hematemesis. His last drink was approximately 24 hours ago need having with mild withdrawal symptoms. He began feeling nauseated today than began vomiting and as he has continued to vomit it appears to be more ?coffee-ground looking. He notes that he does NOT have a history of prior GI bleeding and has not had EGDs previously. He also notes that he has not taken any of his metoprolol for the last number of days. Related Data Home Medications Medication Instructions Recorded Confirmed aspirin 81 mg tablet,delayed 81 mg PO DAILY 12/24/19 10/25/20 release Previous Rx's Medication Instructions Recorded atorvastatin 20 mg tablet 20 mg PO DAILY #90 tab 12/24/19 metoprolol tartrate 25 mg tablet 25 mg PO BID #180 tab 06/29/20 Allergies Allergy/AdvReac Type Severity Reaction Status Date / Time fluconazole Allergy Severe SWEATING, Verified 11/21/20 21:20 SOB, NAUSEA diclofenac [DICLOFENAC] Allergy Intermediate RASH ON Verified 11/21/20 21:20 FACE; LIGHTHEADEDNESS Review of Systems Review of Systems Narrative: Pertinent positive and negative findings as per HPI Remainder of review of systems is otherwise unremarkable for Constitutional: Fevers, chills, weakness CV: Chest pain, palpitations, dyspnea on exertion Respiratory: Cough, wheeze, dyspnea : Dysuria, hematuria, flank pain MS: Muscle weakness, numbness, joint swelling or warmth Skin: Rashes, nonhealing lesions Neuro: Syncope, dizziness, tingling Patient History Medical History Alcohol abuse 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) History of kidney disease as a child (10/09/16) History of unilateral nephrectomy (10/09/16) Hypertension Mixed hyperlipidemia Surgical History History of nephrectomy (1977) Hx of appendectomy (1977) Hx of hernia repair (1999) Family History Father Congestive heart failure Diabetes mellitus COPD (chronic obstructive pulmonary disease) Mother Hypertension Diabetes mellitus Cancer Social History household members: spouse Smoking Status: Current every day smoker alcohol intake: current substance use type: marijuana Smoking Status: Current every day smoker tobacco type: cigarettes alcohol intake frequency: 3 or more drinks per day Alcohol type: beer Substance Use Type: marijuana Exam Narrative Exam Narrative: General: In mild distress. Able to cooperate with history. Well-nourished well-developed HEENT: Moist mucous membranes, normal sclera with reactive pupils, uvula is inflamed edematous with excoriation at the tip from the violent emesis Neck: No JVD, supple, no cervical adenopathy Respiratory: Lungs with minor scattered wheezes no rhonchi. Full and symmetrical air movement Cardiac: Tachycardic with Regular rate and rhythm no murmurs no bruits Abdomen: Soft, mild epigastric tenderness, no rebound or guarding good bowel tones, no flank pain Skin: Warm and dry, no rashes Neurologic: Grossly neurologically intact with no obvious asymmetries or abnormalities Extremities: No trauma, well perfused Psych: Cooperative, appropriate insight and affect Initial Vital Signs Initial Vital Signs: Vital Signs Temperature 97.8 F 11/21/20 21:16 Pulse Rate 117 H 11/21/20 21:16 Respiratory Rate 18 11/21/20 21:16 Blood Pressure 183/106 H 11/21/20 21:16 Pulse Oximetry 99 11/21/20 21:16 Course Orders Ordered: ED Orders 11/21/20 21:20 EKG-12 Lead Stat 11/21/20 21:23 XR chest 1V Stat 11/21/20 21:30 Complete Blood Count AUTO DIFF Stat Comprehensive Metabolic Panel Stat Lipase Stat Partial Thromboplastin Time Stat Prothrombin Time INR Stat Troponin I Stat Type and Screen Stat 11/21/20 21:55 COVID19 - ADMIT (DEBURR[facility] MACHINE swab/PCR) Stat 11/21/20 23:30 Hemoglobin and Hematocrit Stat Folic Acid (Folic Acid 1 Mg Tablet) 1 mg PO DAILY BIRDIE Octreotide Acetate 500 mcg/ (Sodium Chloride) 101 mls @ 5.05 mls/hr IV CONT BIRDIE Last Admin: 11/21/20 22:27 Dose: 25 mcg/hr, 5.05 mls/hr Documented by: SUHA Pantoprazole Sodium 80 mg/ (Sodium Chloride) 80 mls @ 8 mls/hr IV Q10H [facility] Last Admin: 11/21/20 22:21 Dose: 8 mls/hr Documented by: SUHA Sodium Chloride (Normal Saline 0.9%) 1,000 mls @ 125 mls/hr IV CONT BIRDIE Folic Acid 1 mg/ Thiamine HCl 100 mg/ Multivitamins 10 ml/Sodium Chloride 1,011.2 mls @ 125 mls/hr IV NOW ONE Stop: 11/22/20 11:13 Lorazepam (Lorazepam 2 Mg/Ml Inj) 0.5 mg IV Q2HR PRN PRN Reason: Alcohol Withdrawal Lorazepam (Lorazepam 1 Mg Tablet) 2 mg PO Q8HR BIRDIE; Protocol Metoprolol Tartrate (Metoprolol Ir 25 Mg Tablet) 25 mg PO BID [facility] Multivitamins (Multivitamin 1 Tablet) 1 tab PO DAILY [facility] Naloxone HCl (Naloxone 0.4 Mg/Ml Vial) 0.2 mg IV Q2MIN PRN PRN Reason: Opiate Reversal Nicotine (Nicotine 14 Patch) 14 mg TOP DAILY [facility] Thiamine HCl (Thiamine 100 Mg Tablet) 100 mg PO DAILY BIRDIE Stop: 11/25/20 09:01 Discontinued Medications Sodium Chloride (Normal Saline 0.9%) 1,000 mls @ 1,000 mls/hr IV BOLUS ONE Stop: 11/21/20 22:21 Last Infusion: 11/21/20 23:43 Dose: 0 mls/hr Documented by: Admin: 11/21/20 21:32 Dose: 1,000 mls/hr Documented by: HOMA Pantoprazole Sodium 80 mg/ (Sodium Chloride) 100 mls @ 10 mls/hr IV Q10H [facility] Ceftriaxone Sodium/Dextrose (Rocephin) 2 gm in 50 mls @ 100 mls/hr IV NOW ONE Stop: 11/21/20 23:20 Last Infusion: 11/21/20 23:43 Dose: 0 mls/hr Documented by: Admin: 11/21/20 23:09 Dose: 100 mls/hr Documented by: [email or web address] Dextrose/Sodium Chloride (Dextrose 5%-0.9% Ns) 1,000 mls @ 100 mls/hr IV CONT [facility] Magnesium Sulfate 2 gm/ Folic Acid 1 mg/ Thiamine HCl 100 mg / Multivitamins 10 ml/ Sodium Chloride 1,015.2 mls @ 125 mls/hr IV NOW ONE Stop: 11/22/20 09:20 Magnesium Sulfate (Magnesium Sulfate) 2 gm in 50 mls @ 25 mls/hr IV NOW ONE Stop: 11/22/20 05:06 Last Admin: 11/22/20 03:35 Dose: 25 mls/hr Documented by: KENDRA Cosigned by: TABITHA Lorazepam (Lorazepam 2 Mg/Ml Inj) 2 mg IV NOW ONE Stop: 11/21/20 22:05 Last Admin: 11/21/20 22:15 Dose: 2 mg Documented by: SUHA Metoclopramide HCl (Metoclopramide 10 Mg/2 Ml Inj) 10 mg IV NOW ONE Stop: 11/21/20 22:05 Last Admin: 11/21/20 22:16 Dose: 10 mg Documented by: SUHA Metoprolol Tartrate (Metoprolol Tartrate 5 Mg/5 Ml Inj) 5 mg IV Q5M BIRDIE Stop: 11/21/20 23:56 Last Admin: 11/22/20 03:14 Dose: Not Given Documented by: Admin: 11/22/20 00:24 Dose: 5 mg Documented by: Admin: 11/22/20 00:06 Dose: 5 mg Documented by: SUHA Octreotide Acetate (Octreotide 100 Mcg/Ml Vial) 50 mcg IV NOW ONE Stop: 11/21/20 21:51 Last Admin: 11/21/20 22:28 Dose: 50 mcg Documented by: SUHA Ondansetron HCl (Ondansetron 4 Mg/2 Ml Inj) 4 mg IV NOW ONE Stop: 11/21/20 21:23 Last Admin: 11/21/20 21:32 Dose: 4 mg Documented by: HOMA Pantoprazole Sodium (Pantoprazole 40 Mg Vial) 40 mg IV NOW ONE Stop: 11/21/20 22:02 Last Admin: 11/21/20 22:20 Dose: 40 mg Documented by: SUHA Pantoprazole Sodium (Pantoprazole 40 Mg Vial) 40 mg IV NOW ONE Stop: 11/21/20 21:51 Last Admin: 11/21/20 22:36 Dose: Not Given Documented by: SUHA Vital Signs Vital signs: Vital Signs - 8 hr 11/21/20 22:00 11/21/20 22:18 11/21/20 22:30 Pulse Rate 122 H 104 H 109 H Respiratory Rate 57 H 22 26 H Blood Pressure 186/102 H 182/97 H 186/100 H Pulse Oximetry 97 100 99 11/21/20 23:00 11/21/20 23:30 Pulse Rate 105 H 105 H Respiratory Rate 23 24 Blood Pressure 175/94 H 180/90 H Pulse Oximetry 77 L 98 Medical Decision Making Medical Records Medical records reviewed: Yes I reviewed the patient's medical records. Lab Data Lab results reviewed: Yes I reviewed the patient's lab results. Result diagrams: 11/21/20 23:30 11/21/20 21:30 Labs: Lab Results 11/21/20 11/21/20 11/21/20 Range/Units 21:30 21:30 21:30 WBC 12.9 H (4.5-11.0) X10^3/uL RBC 3.99 L (4.5-5.9) X10^6/uL Hgb 13.7 (13.5-17.5) g/dL Hct 40.7 L (41-53) % MCV 101.9 H (80-100) fL MCH 34.2 H (26-34) PG MCHC 33.6 (30-36) % RDW 14.4 (11.6-14.8) % Plt Count 185 (150-400) X10^3/uL Neut % (Auto) 90.1 H (50-75) % Lymph % (Auto) 3.0 L (25-40) % [place] % (Auto) 5.8 (3-14) % Eos % (Auto) 0.0 L (2-4) % Baso % (Auto) 1.1 (0-2) % Neut # (Auto) 70804 H (4897-4780) /uL Lymph # (Auto) 400 L (2693-4426) /uL [place] # (Auto) 700 (0-900) /uL Eos # (Auto) 0 (0-450) /uL Baso # (Auto) 100 (0-100) /uL PT 10.6 (10.1-12.7) SECONDS INR 0.9 (0.9-1.3) APTT 27 (26.4-36.2) SECONDS Sodium 138 (137-145) mmol/L Potassium 3.8 (3.4-5.1) mmol/L Chloride 94 L (98-107) mmol/L Carbon Dioxide 19 L (22-32) mmol/L BUN 11 (9-20) mg/dL Creatinine 0.89 (0.66-1.25) mg/dL Estimated GFR > 60.0 (>60) mL/min BUN/Creatinine Ratio 12.4 (6-22) Glucose 195 H (70-100) mg/dL Calcium 9.8 (8.4-10.2) mg/dL Magnesium (1.6-2.3) mg/dL Total Bilirubin 1.0 (0.2-1.3) mg/dL AST 85 H (17-59) IU/L ALT 72 H (<50) IU/L Alkaline Phosphatase 72 (38-126) U/L Troponin I < 0.012 (0.01-0.034) ng/mL Total Protein 8.6 H (6.3-8.2) g/dL Albumin 5.1 H (3.5-5.0) g/dL Globulin 3.5 (1.7-4.1) g/dL Albumin/Globulin Ratio 1.5 (1.0-2.8) Lipase 356 H (23-300) U/L Ethyl Alcohol ( - 10) mg/dL SARS-CoV-2 (PCR) (Negative) Blood Type Antibody Screen 11/21/20 11/21/20 11/21/20 Range/Units 21:30 21:30 21:30 WBC (4.5-11.0) X10^3/uL RBC (4.5-5.9) X10^6/uL Hgb (13.5-17.5) g/dL Hct (41-53) % MCV (80-100) fL MCH (26-34) PG MCHC (30-36) % RDW (11.6-14.8) % Plt Count (150-400) X10^3/uL Neut % (Auto) (50-75) % Lymph % (Auto) (25-40) % [place] % (Auto) (3-14) % Eos % (Auto) (2-4) % Baso % (Auto) (0-2) % Neut # (Auto) (6745-3277) /uL Lymph # (Auto) (1385-9047) /uL [place] # (Auto) (0-900) /uL Eos # (Auto) (0-450) /uL Baso # (Auto) (0-100) /uL PT (10.1-12.7) SECONDS INR (0.9-1.3) APTT (26.4-36.2) SECONDS Sodium (137-145) mmol/L Potassium (3.4-5.1) mmol/L Chloride (98-107) mmol/L Carbon Dioxide (22-32) mmol/L BUN (9-20) mg/dL Creatinine (0.66-1.25) mg/dL Estimated GFR (>60) mL/min BUN/Creatinine Ratio (6-22) Glucose (70-100) mg/dL Calcium (8.4-10.2) mg/dL Magnesium 1.6 (1.6-2.3) mg/dL Total Bilirubin (0.2-1.3) mg/dL AST (17-59) IU/L ALT (<50) IU/L Alkaline Phosphatase (38-126) U/L Troponin I (0.01-0.034) ng/mL Total Protein (6.3-8.2) g/dL Albumin (3.5-5.0) g/dL Globulin (1.7-4.1) g/dL Albumin/Globulin Ratio (1.0-2.8) Lipase (23-300) U/L Ethyl Alcohol < 10 ( - 10) mg/dL SARS-CoV-2 (PCR) (Negative) Blood Type A Positive Antibody Screen Negative 11/21/20 11/21/20 Range/Units 21:55 23:30 WBC (4.5-11.0) X10^3/uL RBC (4.5-5.9) X10^6/uL Hgb 12.7 L (13.5-17.5) g/dL Hct 38.4 L (41-53) % MCV (80-100) fL MCH (26-34) PG MCHC (30-36) % RDW (11.6-14.8) % Plt Count (150-400) X10^3/uL Neut % (Auto) (50-75) % Lymph % (Auto) (25-40) % [place] % (Auto) (3-14) % Eos % (Auto) (2-4) % Baso % (Auto) (0-2) % Neut # (Auto) (4122-2376) /uL Lymph # (Auto) (9885-2066) /uL [place] # (Auto) (0-900) /uL Eos # (Auto) (0-450) /uL Baso # (Auto) (0-100) /uL PT (10.1-12.7) SECONDS INR (0.9-1.3) APTT (26.4-36.2) SECONDS Sodium (137-145) mmol/L Potassium (3.4-5.1) mmol/L Chloride (98-107) mmol/L Carbon Dioxide (22-32) mmol/L BUN (9-20) mg/dL Creatinine (0.66-1.25) mg/dL Estimated GFR (>60) mL/min BUN/Creatinine Ratio (6-22) Glucose (70-100) mg/dL Calcium (8.4-10.2) mg/dL Magnesium (1.6-2.3) mg/dL Total Bilirubin (0.2-1.3) mg/dL AST (17-59) IU/L ALT (<50) IU/L Alkaline Phosphatase (38-126) U/L Troponin I (0.01-0.034) ng/mL Total Protein (6.3-8.2) g/dL Albumin (3.5-5.0) g/dL Globulin (1.7-4.1) g/dL Albumin/Globulin Ratio (1.0-2.8) Lipase (23-300) U/L Ethyl Alcohol ( - 10) mg/dL SARS-CoV-2 (PCR) Negative (Negative) Blood Type Antibody Screen Point of Care Testing Glucose POC 169 Point of care testing: Point of Care Testing Glucose POC 169 ECG Data Attestation: I personally reviewed and interpreted this ECG as follows: Interpretation: Sinus tachycardia at a rate of 102 Normal intervals and normal axis No acute ischemic changes MDM Narrative Medical decision making narrative: 60-year-old gentleman with a history of alcohol use disorder vomiting earlier today that then became more violent and had some hematemesis. H&H is minimally dropping. He has had no black stools. He is showing mild signs of alcohol withdrawal blood pressure and heart rate elevated complicated by none of his usual metoprolol for the last 3 days. Chest x-ray is unremarkable with no pneumo mediastinum. Possibility of Boerhaave syndrome is certainly entertained with vomiting secondary to alcohol withdrawal. He has never had GI bleeding that possibility of alcoholic gastritis is certainly possible. He has never had upper endoscopy and does not know if he has esophageal varices at this point he has no diagnosis of significant hepatic disease. He is responding nicely to antiemetics and fluids. Will need to be admitted for further observation. He is admitted to the hospitalist service with surgical consultation. Discharge Plan Departure Patient Disposition: Admitted As Inpatient Admit Date/Time: 11/21/20 23:59 Admit Provider: Liseth Alves
[2020-11-21 22:50] LABS: COVID19 - ADMIT (NP swab/PCR) Negative (Negative)
[2020-11-21] MEDS: CEFTRIAXONE 2 GM/50 ML FROZ.PIGGY IV (23:09)
[2020-11-21 23:38] LABS: Hematocrit 38.4 % (41-53); Hemoglobin 12.7 g/dL (13.5-17.5)
[2020-11-22] VITALS (10 sets, daily range): BP systolic 137–177; BP diastolic 86–104; PULSE 67–107; RESP 16–31; TEMP 36.7–38.1; O2SAT 96–98; BMI 23.0
[2020-11-22] MEDS: METOPROLOL TARTRATE 5 MG/5 ML INJ IV ×2 (00:06→00:24)
--- NOTE | 2020-11-22 00:48 | P.HP_ITS ---
History of Present Illness History of Present Illness Date Patient Seen: 11/22/20 Time Patient Seen: 00:48 Chief complaint: Vomiting with blood Narrative: This is a 60 year old male with Daily Alcohol Use, Hyperlipidemia, Hypertension, Previous Alcoholic Pancreatitis and Esophageal Food Obstruction who has been vomiting for 24 hours. He is found to be hyperglycemic at 159 (with no history of diabetes mellitus) with a previous baseline Hgb of 13.0 now at 12.7. His last alcohol intake was about 24 hours before presentation. He drinks 1 pt of whiskey per day. His Lipase is 356 with chronically elevated liver enzymes of ALT 72 and AST 85. Initial vomiting was not red color but after about 12 hours became ?coffee-ground? appearance. He has not seen any blood in his stool. A baseline magnesium and a baseline alcohol level are pending. 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 Safety & Behavioral: Feels Safe in Current Yes Environment Been Physically Hurt or No Threatened By a Person Tobacco & Substance use: Smoking Status Current every day smoker alcohol intake current alcohol intake frequency 3 or more drinks per day Substance Use Type marijuana Meds Home Medications and Allergies Home Medications Medication Instructions Recorded Confirmed Type aspirin 81 mg tablet,delayed 81 mg PO DAILY 12/24/19 10/25/20 History release atorvastatin 20 mg tablet 20 mg PO DAILY #90 tab 12/24/19 10/25/20 Rx metoprolol tartrate 25 mg tablet 25 mg PO BID #180 tab 06/29/20 10/25/20 Rx Allergies Allergy/AdvReac Type Severity Reaction Status Date / Time fluconazole Allergy Severe SWEATING, Verified 11/21/20 21:20 SOB, NAUSEA diclofenac [DICLOFENAC] Allergy Intermediate RASH ON Verified 11/21/20 21:20 FACE; LIGHTHEADEDNESS Review of Systems Review of Systems Narrative: Positive for tremulousness, vomiting, hematemesis. Negative for blood in stool, abdominal pain, chest pain, shortness of breath, coughing, fevers, chills, sweats, seizures, rash, trouble talking, new allergies, sore throat, headache, dysuria. ROS: Yes All systems reviewed with the patient and are negative except as otherwise documented Exam Vital Signs (past 8 hours): - 11/21/20 21:16 11/21/20 21:29 11/21/20 21:30 Temperature 97.8 F Pulse Rate 117 H 117 H Respiratory Rate 18 27 H Blood Pressure 183/106 H 180/112 H 187/94 H Pulse Oximetry 99 11/21/20 22:00 11/21/20 22:18 11/21/20 22:30 Temperature Pulse Rate 122 H 104 H 109 H Respiratory Rate 57 H 22 26 H Blood Pressure 186/102 H 182/97 H 186/100 H Pulse Oximetry 97 100 99 11/21/20 23:00 11/21/20 23:30 11/22/20 00:00 Temperature Pulse Rate 105 H 105 H 107 H Respiratory Rate 23 24 25 H Blood Pressure 175/94 H 180/90 H 164/86 H Pulse Oximetry 77 L 98 96 11/22/20 00:10 11/22/20 00:17 11/22/20 00:24 Temperature Pulse Rate 87 93 H 95 H Respiratory Rate 24 23 27 H Blood Pressure 162/90 H 177/91 H 171/89 H Pulse Oximetry 96 97 97 11/22/20 00:29 11/22/20 00:30 Temperature Pulse Rate 86 89 Respiratory Rate 31 H 25 H Blood Pressure 158/91 H 156/89 H Pulse Oximetry 98 98 Oxygen Delivery Method Room Air Narrative Exam Narrative: Alert and oriented x3. He appears to be in moderate alcohol withdrawal distress with a tremulous appearance and tremulous voice. Oriented x3 No lymph nodes are felt head, neck, supraclavicular area. There is no thyromegaly. Pupils are equally round and reactive to light and accommodation. Extraocular muscles are tested intact. JVD is less than 6 cm Throat looks normal Heart is tachycardic regular rhythm and no murmur. Lungs are clear to auscultation bilaterally Abdomen is protuberant but soft, nontender, no organomegaly, no ascites evident. Lungs are clear to auscultation bilaterally Extremities have no ankle edema. Significant muscle atrophy evident. Neurological exam. Motor function is 4/5 throughout. Cranial nerves 2-12 test intact. The patient is diffusely tremulous. Sensation is intact Deep tender reflexes are symmetric and normal Skin no rash or jaundice. His face is flushed appearing. Objective Labs Result Diagrams: 11/21/20 23:30 11/21/20 21:30 Labs: Laboratory Results - last 24 hr 11/21/20 11/21/20 11/21/20 21:30 21:30 21:30 WBC 12.9 H RBC 3.99 L Hgb 13.7 Hct 40.7 L MCV 101.9 H MCH 34.2 H MCHC 33.6 RDW 14.4 Plt Count 185 Neut % (Auto) 90.1 H Lymph % (Auto) 3.0 L [place] % (Auto) 5.8 Eos % (Auto) 0.0 L Baso % (Auto) 1.1 Neut # (Auto) 79693 H Lymph # (Auto) 400 L [place] # (Auto) 700 Eos # (Auto) 0 Baso # (Auto) 100 PT 10.6 INR 0.9 APTT 27 Sodium 138 Potassium 3.8 Chloride 94 L Carbon Dioxide 19 L BUN 11 Creatinine 0.89 Estimated GFR > 60.0 BUN/Creatinine Ratio 12.4 Glucose 195 H Calcium 9.8 Total Bilirubin 1.0 AST 85 H ALT 72 H Alkaline Phosphatase 72 Troponin I < 0.012 Total Protein 8.6 H Albumin 5.1 H Globulin 3.5 Albumin/Globulin Ratio 1.5 Lipase 356 H SARS-CoV-2 (PCR) Blood Type Antibody Screen 11/21/20 11/21/20 11/21/20 21:30 21:55 23:30 WBC RBC Hgb 12.7 L Hct 38.4 L MCV MCH MCHC RDW Plt Count Neut % (Auto) Lymph % (Auto) [place] % (Auto) Eos % (Auto) Baso % (Auto) Neut # (Auto) Lymph # (Auto) [place] # (Auto) Eos # (Auto) Baso # (Auto) PT INR APTT Sodium Potassium Chloride Carbon Dioxide BUN Creatinine Estimated GFR BUN/Creatinine Ratio Glucose Calcium Total Bilirubin AST ALT Alkaline Phosphatase Troponin I Total Protein Albumin Globulin Albumin/Globulin Ratio Lipase SARS-CoV-2 (PCR) Negative Blood Type A Positive Antibody Screen Negative Assessment & Plan Assessment & Plan narrative: This is a 60 year old male with Daily Alcohol Use and Vomiting progressing to mild hematemesis over 24 hours. Hematemesis, present on admission. Active. -hemoglobin 12.7 with baseline of 13.0. -Serial H/H, NPO -IV Protonix Drip -IVF maintenance NS -Surgery aware of admission and available for Endoscopy if hgb continues to drop -Lipase elevated at 356 Daily Alcohol Use, present on admission. Active. -One pint of Whiskey per day -Check admission ETOH level and magnesium level -2 mg Lorazepam q8h for evident alcohol withdrawal symptoms on admission -IV Lorazapam prn and CIWA protocol -IV magnesium, multivitamin and daily oral thiamine Alcoholic Cirrhosis, present on admission. Active. -AST 85 and ALT 72 on 11/22 admission -follow CMP daily Hypertension, present on admission. Active. -Continue Metoprolol 25 mg BID Hyperlipidemia, present on admission. Chronic. -Hold Lipitor Hyperglycemia, present on admission. Active. -admit blood sugar of 195 -Blood sugars q6h and check A1c Nicotine Addiction, present on admission. Active. -Nicotine patch No Heparin or Lovenox due to active bleeding
--- NOTE | 2020-11-22 01:34 | PC.NURSE ---
Patient brought up from ED via stretcher, A/O x 4. Lungs CTA, tight, patient on RA, denies SOB, endorses sore throat, intermittent hoarse, wet, productive cough, denies N/V at this time. Abdoment soft, non-tender. BT active x 4. Patient denies dizziness or lightheadedness. SCD's on. Tele on. Seizure pads placed. Patient remains NPO. Call light in reach. Patient instructed to call before getting OOB. Verbalized understanding. Belongings placed in the closet per patient request.
[2020-11-22 01:59] LABS: Prothrombin Time 10.8 SECONDS (10.1-12.7)
[2020-11-22 02:03] LABS: Magnesium 1.6 mg/dL (1.6-2.3)
[2020-11-22 02:04] LABS: Ethanol (ETOH) < 10 mg/dL
[2020-11-22] MEDS: MAGNESIUM SULFATE 2 GM/50 ML PIGGYBACK IV (03:35)
[2020-11-22 06:05] LABS: Add Manual Diff / Slide Review NO; Basophils Absolute Auto 100 /uL (0-100); Basophils Percent Auto 0.6 % (0-2); Eosinophils Absolute Auto 0 /uL (0-450); Hematocrit 37.6 % (41-53); Hemoglobin 12.7 g/dL (13.5-17.5); Lymphocytes Absolute Auto 600 /uL (1100-4500); Lymphocytes Percent Auto 5.9 % (25-40); Mean Corpuscular HGB Conc 33.8 % (30-36); Mean Corpuscular Hemoglobin 34.5 PG (26-34); Mean Corpuscular Volume 102.1 fL (80-100); Monocytes Absolute Auto 1100 /uL (0-900); Monocytes Percent Auto 11.5 % (3-14); Neutrophils Absolute Auto 8000 /uL (1500-7000); Platelet Count 141 X10^3/uL (150-400); Red Blood Cell Count 3.69 X10^6/uL (4.5-5.9); Red Cell Distribution Width 14.5 % (11.6-14.8); White Blood Cell Count 9.7 X10^3/uL (4.5-11.0)
[2020-11-22 06:12] LABS: Hemoglobin A1C% w Est Avg Glu 5.4 % (4.0-6.0)
[2020-11-22 06:16] LABS: Alanine Aminotransferase 58 IU/L (<50); Albumin 4.2 g/dL (3.5-5.0); Albumin Globulin Ratio 1.5 (1.0-2.8); Alkaline Phosphatase 57 U/L (38-126); Aspartate Aminotransferase 60 IU/L (17-59); BUN Creatinine Ratio 14.3 (6-22); Bilirubin Total 0.7 mg/dL (0.2-1.3); Blood Urea Nitrogen 12 mg/dL (9-20); Calcium 8.5 mg/dL (8.4-10.2); Carbon Dioxide 18 mmol/L (22-32); Chloride 100 mmol/L (98-107); Estimated Glomerular Filt Rate > 60.0 mL/min (>60); Globulin 2.8 g/dL (1.7-4.1); Glucose 205 mg/dL (70-100); HEMOLYSIS < 15 (0-50); Potassium 4.9 mmol/L (3.4-5.1); Sodium 136 mmol/L (137-145)
[2020-11-22] MEDS: FOLIC ACID IV (06:43)
[2020-11-22] MEDS: THIAMINE IV (06:43)
[2020-11-22] MEDS: SODIUM CHLORIDE IV (06:43)
[2020-11-22] MEDS: MULTIVITAMIN IV (06:43)
[2020-11-22] MEDS: MULTIVITAMIN 1 TABLET 1 TAB PO (08:51)
[2020-11-22] MEDS: METOPROLOL IR 25 MG TABLET PO (08:51)
[2020-11-22] MEDS: FOLIC ACID 1 MG TABLET PO (08:51)
[2020-11-22] MEDS: THIAMINE 100 MG TABLET PO (08:51)
[2020-11-22] MEDS: NICOTINE 14 PATCH 14 MG TOP (08:51)
[2020-11-22] MEDS: PANTOPRAZOLE 80 MG in SODIUM CHLORIDE 0.9% 80 ML 8 ML IV (09:06)
[2020-11-22 09:30] LABS: Bacteria Urine None Seen
[2020-11-22 09:32] LABS: Appearance Urine UA CLEAR; Bilirubin Urine UA 1+ (NEGATIVE); Color Urine UA YELLOW; Glucose Urine UA NEGATIVE (Negative); Ketones Urine UA 3+ (NEGATIVE); Leukocyte Esterase Urine UA NEGATIVE (NEGATIVE); Nitrite Urine UA NEGATIVE (Negative); Occult Blood Urine UA TRACE-LYSED (Negative); Protein Urine UA TRACE (Negative); Specific Gravity Urine UA 1.025 (1.000-1.035); Urobilinogen Urine UA 0.2 E.U./dL (0.2)
[2020-11-22 09:52] LABS: Ictotest Urine Negative (Negative); RBC Urine 0-1/HPF (0-5/HPF); Squamous Epithelial Cell Urine 0-1 /HPF (0-5/HPF); WBC Urine 0-1/HPF (0-5/HPF)
[2020-11-22 09:53] LABS: Culture Indicated Urine Cult Not Indicated
[2020-11-22] MEDS: LORazepam 1 MG TABLET 2 MG PO (14:45)
--- NOTE | 2020-11-22 14:57 | CM.DPNOTE ---
Called Mark Morel at 1430 on 11/22/20 and package car driver could not talk and said he could not orange picking supervisor pt. at that time. He told me to call back in an hour. at 1450, the FINANCIAL REPORT SERVICE SALES AGENT called and said Mark Bergman was downstairs to orange picking supervisor pt. I told her to relay message that pt. has a ride and will not be going by taxi. Isabella Salas CM Asst.
--- NOTE | 2020-11-22 15:15 | PC.NURSE ---
VSS. CIWA score 0. Denies pain except for some soreness in his throat still from vomiting. Patient agreed with recommendation to go to inpatient detox. He mentioned wanting to stop at home first to take care of some things like his guns in his house before he went. This was discouraged from both this technical document writer and discharge planning. The detox centered agreed to allow his family members to drive him instead of a taxi. Patient was given discharge instructions and prescriptions, all questions answered. IVs removed. Patient was escorted via wheel chair to 's vehicle, off of unit at 1500.
--- NOTE | 2020-11-22 17:23 | CM.DANOTE ---
DCP ASSESSMENT: Patient is a 60 year-old male admitted for vomiting with blood, Hematemsesis. PCP is Elvin Payne. Primary payer is [facility] and Medicaid. INTERNATIONAL NURSE student met with patient at bedside he was alert and oriented. INTERNATIONAL NURSE provided education on role of social work in discharge planning. Patient reported he lives at home with his Pam and they are caregivers to her father. Patient is independent with ADL?s. Patient has a documented history of alcohol use disorder with a recent ER visit on 10/02/20 presenting with alcohol intoxication. Patient reported he drinks either six beers a day or a pint of whiskey daily he declined using other substances. In 2012 patient had been to rehab and reported detoxing for 10 days followed by 60 days of sobriety. He has also had positive prior experiences with AA. Patient expressed an interest in Rehab services this date. Provided patient with number to [facility] in [place] he completed the phone intake. This typewriter assembly and parts inspector faxed: COVID negative test, D/C note, prescriptions, and an alcohol screen. Patient was accepted. Tried securing rides from Medicaid transport and [employer], neither could provide a ride in a timely fashion. Also, patient expressed a desire to stop at home to procure his glasses and clothes. [facility] was called and Cleo confirmed it was fine for his to transport him to the facility and he would still be accepted as long as he did not drink prior to arriving at the facility for intake. INTERNATIONAL NURSE Student and INTERNATIONAL NURSE relayed information to patient. He verbally expressed understanding and agreed. Nursing was informed of plan, provided with hard copies of medication. Patient provided with [facility] Flyer with Detox Center address to provide to facility upon arrival. [employer] was cancelled by Isabella and Medicaid transport was canceled by this typewriter assembly and parts inspector. PLAN: Patient to D/C from facility today. Patients Pam is going to pick-patient up to transport to [facility] in [place]: with the verbal expressed agreement by the patient he would stop at home to procure some items and take care of a couple of chores. He then planned to go to the Detox Center. YENIFER Castro MSW Student Discharge Planning/Care Management CM Discharge Assessment Start: 11/22/20 13:13 Freq: Status: Discharge Protocol: Document 11/22/20 15:22 AL (Rec: 11/22/20 15:27 AL [id number]) Discharge Planning Assessment Assigned Math Professor YENIFER Bender Student Contact Information María Lizama, daughter Advance Directives? No History Provided By Patient,Medical Record Has Patient been admitted in last 30 Yes days? Comment 10/02/20 ER for alcohol intoxication Prior Living Arrangements House Comment Lives with Pam Household Members spouse Type of transporation used prior to Drives own vehicle admit Independent with ADL's Yes Is patient alert and oriented? Yes Caregiver for Another Yes: [id number] Patient/Family Preference Drug/Alcohol Rehab Comment Patient was provided with information and called [facility] to complete an intake Barriers to Discharge No Discharge Plan Drug Rehabilitation Transportation Arrangement is providing transportation to [facility] detox center in [place] Whiteboard Updated in Patient Room with Yes name and ext. # of Math Professor Review Status In Process
--- NOTE | 2020-11-29 18:12 | PC.NURSE ---
Late Entry; Octreotide infusion initiated 11/21 at 22:27 stopped by discharge order 11/22 at 15:05. Magnesium infusion initiated 11/22 at 03:35, complete at 05:36. Folic acid infusion initiated 11/22 at 06:43, stopped by discharge order 11/22 at 15:05.
== END 2020-11-22 15:05 | disposition home or self-care (01) ==
LOC: ED 21:22 → AC 11-22 00:33
PROVIDERS: Internal Medicine; Admitting Provider Family Medicine; Emergency Provider Emergency Medicine; PCP Student in an Organized Health Care Education/Training Program; Referring Provider Emergency Medicine; Visit Provider Family Medicine
DX: K92.0 Hematemesis (principal); R10.9 Unspecified abdominal pain; I10 Essential (primary) hypertension; F17.210 Nicotine dependence, cigarettes, uncomplicated; E78.5 Hyperlipidemia, unspecified; K70.30 Alcoholic cirrhosis of liver without ascites; F10.10 Alcohol abuse, uncomplicated; R73.9 Hyperglycemia, unspecified; Z20.822 Contact with and (suspected) exposure to COVID-19
CPT/HCPCS: 36415; 71045; 80053; 80320; 81001; 82962; 83036; 83690; 83735; 84484; 85014; 85018; 85025; 85610; 85730; 86850; 86900; 86901; 87635; 93005; 96361; 96365; 96366; 96368; 96375; 99284; C9803; G0378; C9113; J0696; J2060; J2354; J2405; J2765; J3475

== ENCOUNTER → 2020-12-08 13:49 | Outpatient (CLI) | payer OTHER, MEDICAID, SELFPAY ==
[2020-11-22 01:02] VITALS: BMI 23.0
--- NOTE | 2020-12-08 13:50 | DI.RAD.S_ITS ---
PROCEDURE: XR FOOT RT MIN 3V INDICATIONS: Right heel pain following injury TECHNIQUE: 3 views of the foot were acquired. COMPARISON: None. FINDINGS: Bones: No fractures or dislocations. No suspicious bony lesions. There is a moderate-sized plantar fascia insertion spur. [id number] pes planus. No fracture found. Soft tissues: No tibiotalar joint effusion. Achilles tendon appears normal. IMPRESSION: [id number] pes planus, and moderate-sized plantar fascia insertion spur at the posterior calcaneus which can be associated with plantar fasciitis. No acute trauma. Dictated by: Aly Lemos M.D. on 12/08/2020 at 14:08 Approved by: Aly Lemos M.D. on 12/08/2020 at 14:09
== END ==
PROVIDERS: PCP Student in an Organized Health Care Education/Training Program; Referring Provider Student in an Organized Health Care Education/Training Program; Visit Provider Student in an Organized Health Care Education/Training Program
DX: M79.671 Pain in right foot (principal); S99.921A Unspecified injury of right foot, initial encounter; M21.41 Flat foot [pes planus] (acquired), right foot; M77.31 Calcaneal spur, right foot; X58.XXXA Exposure to other specified factors, initial encounter
CPT/HCPCS: 73630

== ENCOUNTER → 2021-11-09 09:55 | Outpatient (CLI) | payer OTHER, MEDICAID, SELFPAY ==
[2020-11-22 01:02] VITALS: BMI 23.0
[2021-11-09 10:41] LABS: Add Manual Diff / Slide Review NO; Basophils Absolute Auto 0 /uL (0-100); Basophils Percent Auto 0.8 % (0-2); Eosinophils Absolute Auto 100 /uL (0-450); Eosinophils Percent Auto 2.5 % (2-4); Hematocrit 39.3 % (41-53); Hemoglobin 13.4 g/dL (13.5-17.5); Lymphocytes Absolute Auto 1500 /uL (1100-4500); Lymphocytes Percent Auto 30.8 % (25-40); Mean Corpuscular HGB Conc 34.1 % (30-36); Mean Corpuscular Hemoglobin 33.6 PG (26-34); Mean Corpuscular Volume 98.5 fL (80-100); Monocytes Absolute Auto 500 /uL (0-900); Neutrophils Absolute Auto 2800 /uL (1500-7000); Neutrophils Percent Auto 55.9 % (50-75); Platelet Count 238 X10^3/uL (150-400); Red Blood Cell Count 3.99 X10^6/uL (4.5-5.9); Red Cell Distribution Width 13.7 % (11.6-14.8)
[2021-11-09 11:02] LABS: Hemoglobin A1C% w Est Avg Glu 5.4 % (4.0-6.0)
[2021-11-09 11:13] LABS: Alanine Aminotransferase 44 IU/L (<50); Albumin 4.5 g/dL (3.5-5.0); Albumin Globulin Ratio 1.6 (1.0-2.8); Alkaline Phosphatase 59 U/L (38-126); Aspartate Aminotransferase 64 IU/L (17-59); BUN Creatinine Ratio 11.3 (6-22); Bilirubin Total 0.6 mg/dL (0.2-1.3); Blood Urea Nitrogen 9 mg/dL (9-20); Calcium 9.7 mg/dL (8.4-10.2); Carbon Dioxide 30 mmol/L (22-32); Chloride 100 mmol/L (98-107); Estimated Glomerular Filt Rate > 60 mL/min (>60); Globulin 2.9 g/dL (1.7-4.1); Glucose 108 mg/dL (80-110); HEMOLYSIS < 15 (0-50); Potassium 4.6 mmol/L (3.4-5.1); Sodium 140 mmol/L (137-145); Total Protein 7.4 g/dL (6.3-8.2)
[2021-11-09 11:37] LABS: Prostate Specific Antigen Scrn 4.54 ng/mL (0.1-4.0)
[2021-11-09 11:40] LABS: TSH w/ Reflex to FT4 2.39 uIU/mL (0.47-4.68)
[2021-11-09 12:28] LABS: Creatinine Urine Random 138.3 mg/dL
[2021-11-09 12:37] LABS: Microalbumi Creatinin Ratio Ur 63.6 ug/mg CR (<30); Microalbumin Urine Random 8.8 mg/dL (0-1.6)
== END ==
PROVIDERS: PCP Student in an Organized Health Care Education/Training Program; Referring Provider Student in an Organized Health Care Education/Training Program; Visit Provider Student in an Organized Health Care Education/Training Program
DX: D50.0 Iron deficiency anemia secondary to blood loss (chronic) (principal); F10.21 Alcohol dependence, in remission; I10 Essential (primary) hypertension; Z12.5 Encounter for screening for malignant neoplasm of prostate; R73.9 Hyperglycemia, unspecified
CPT/HCPCS: 36415; 80053; 82043; 82570; 83036; 84443; 85025; G0103

== ENCOUNTER → 2021-12-29 11:12 | Outpatient (CLI) | payer OTHER, MEDICAID, SELFPAY ==
[2020-11-22 01:02] VITALS: BMI 23.0
[2021-12-29 11:47] LABS: Appearance Urine UA CLEAR; Bilirubin Urine UA NEGATIVE (NEGATIVE); Color Urine UA YELLOW; Glucose Urine UA NEGATIVE (Negative); Ketones Urine UA NEGATIVE (NEGATIVE); Leukocyte Esterase Urine UA NEGATIVE (NEGATIVE); Nitrite Urine UA NEGATIVE (Negative); Occult Blood Urine UA TRACE-LYSED (Negative); Protein Urine UA NEGATIVE (Negative); Urobilinogen Urine UA 0.2 E.U./dL (0.2); pH Urine UA 6.5 (4.5-8.0)
[2021-12-29 11:54] LABS: Bacteria Urine None Seen; Culture Indicated Urine Cult Not Indicated; RBC Urine 0-1/HPF (0-5/HPF); WBC Urine None Seen (0-5/HPF)
[2021-12-29 12:06] LABS: Creatinine Urine Random 105.7 mg/dL
[2021-12-29 12:10] LABS: Microalbumi Creatinin Ratio Ur 12.2 ug/mg CR (<30); Microalbumin Urine Random 1.3 mg/dL (0-1.6)
[2021-12-29 12:28] LABS: Prostate Specific Antigen 4.25 ng/mL (0.10-4.00)
== END ==
PROVIDERS: PCP Student in an Organized Health Care Education/Training Program; Referring Provider Student in an Organized Health Care Education/Training Program; Visit Provider Student in an Organized Health Care Education/Training Program
DX: R80.9 Proteinuria, unspecified (principal); R97.20 Elevated prostate specific antigen [PSA]
CPT/HCPCS: 36415; 81001; 82043; 82570; 84153

== ENCOUNTER → 2022-01-11 13:08 | Outpatient (CLI) | payer OTHER, MEDICAID, SELFPAY ==
[2020-11-22 01:02] VITALS: BMI 23.0
[2022-01-11 15:38] LABS: COVID19 -Nasal RAPID Negative (Negative)
== END ==
PROVIDERS: PCP Student in an Organized Health Care Education/Training Program; Visit Provider Surgery
DX: Z01.812 Encounter for preprocedural laboratory examination (principal); Z20.822 Contact with and (suspected) exposure to COVID-19
CPT/HCPCS: 87635; C9803

== ENCOUNTER 2022-01-12 08:55 | Day surgery (SDC) | payer OTHER, MEDICAID, SELFPAY ==
[2020-11-22 01:02] VITALS: BMI 23.0
[2022-01-12 09:17] VITALS: BP 153/83; PULSE 52; RESP 16; TEMP 36.4; O2SAT 99; BMI 22.3
[2022-01-12] MEDS: LACTATED RINGERS 1,000 ML 42 ML IV (09:35)
--- NOTE | 2022-01-12 09:59 | P.HP_ITS ---
History of Present Illness History of Present Illness Date Patient Seen: 01/12/22 Time Patient Seen: 09:59 Chief complaint: [facility] [place] Narrative: colon cancer screening, this is his first, no family history for colon cancer. No GI symptoms. 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 Essential hypertension (10/09/16) History of kidney disease as a child (10/09/16) Mixed hyperlipidemia Surgical History History of nephrectomy (1977) History of unilateral nephrectomy (10/09/16) Hx of appendectomy (1977) Hx of hernia repair (1999) Family & Social History Family History Father Congestive heart failure Diabetes mellitus COPD (chronic obstructive pulmonary disease) Mother Hypertension Diabetes mellitus Cancer Social History: household members spouse Tobacco & Substance use: Tobacco type cigarettes,cannabis/marijuana Smoking Status Current every day smoker alcohol intake current alcohol intake frequency 3 or more drinks per day Substance Use Type marijuana Meds Home Medications and Allergies Home Medications Medication Instructions Recorded Confirmed Type aspirin 81 mg tablet,delayed 81 mg PO DAILY 12/24/19 01/12/22 History release multivitamin with folic acid 400 1 tab PO DAILY #30 tabs 11/30/20 11/09/21 Rx mcg tablet (Tab-A-Brandon) thiamine HCl (vitamin B1) 100 mg 100 mg PO DAILY #30 tabs 11/30/20 01/12/22 Rx tablet (Vitamin B-1) atorvastatin 20 mg tablet 20 mg PO DAILY #90 tabs 12/28/20 01/12/22 Rx metoprolol tartrate 25 mg tablet 25 mg PO BID #180 tabs 11/09/21 01/12/22 Rx peg 3350-electrolytes 236 240 ml PO Q10M #4,000 mL 01/03/22 Rx gram-22.74 gram-6.74 gram-5.86 gram solution (Golytely) Allergies Allergy/AdvReac Type Severity Reaction Status Date / Time fluconazole Allergy Severe SWEATING, Verified 01/12/22 09:15 SOB, NAUSEA diclofenac [DICLOFENAC] Allergy Intermediate RASH ON Verified 01/12/22 09:15 FACE; LIGHTHEADEDNESS Review of Systems Review of Systems ROS: Yes All systems reviewed with the patient and are negative except as otherwise documented Exam Vital Signs (past 8 hours): - 01/12/22 09:17 Temperature 97.6 F Pulse Rate 52 L Respiratory Rate 16 Blood Pressure 153/83 H Pulse Oximetry 99 Oxygen Delivery Method Room Air Oxygen Delivery Method Room Air Const General: cooperative and disheveled Nutritional Appearance: average body habitus [facility] Head: normocephalic and atraumatic Ears: hearing grossly normal bilaterally Eyes General: appearance normal, both eyes and all related structures Sclera: sclerae normal Neck Neck: trachea midline Chest Chest: normal inspection of the chest Resp Effort & Inspection: normal respiratory effort and able to speak in complete sentences Cardio Rate: regular rate Rhythm: regular rhythm GI Inspection: normal to inspection Palpation: soft Skin General: no rashes or lesions noted and elasticity normal Neuro General: patient alert, patient awake and patient oriented x3 Cognition: normal cognition Psych Appearance: grossly normal Affect: normal affect Judgment: judgment good Assessment & Plan Assessment & Plan narrative: colon cancer screening using colonoscopy and moderate sedation COVID-19 COVID-19 status: Negative Time Spent With Patient Time with patient: less than 30 minutes Critical Care time: I spent a total of [] minutes of critical care time on this patient's care today; this time is exclusive of procedural time.
--- NOTE | 2022-01-12 10:02 | P.OP.COLON_ITS ---
Operative Date/Time/Diagnoses Date of procedure: 01/12/22 Time of procedure: 10:02 Pre-op diagnosis: colon cancer screening Post-op diagnosis: same Procedure & Clinicians Study performed: Colonoscopy with moderate sedation Same procedure as scheduled: Yes Indications: Colon cancer screening Surgeon: Jessica Moore Procedure Notes SCOAP/Timeout: Done Procedure in detail: Preop diagnosis: Colon cancer screening Postop diagnosis: Same Operative procedure: Colonoscopy with moderate sedation Surgeon: Amanda Moore MD Anesthetic: Versed 4 mg, fentanyl 125 mcg Findings: No polyps, severe diverticulosis of the sigmoid colon Procedure: Patient placed in a lateral position. Rectal exam performed showing normal tone and hemorrhoidal tags with grade 2, 3 hemorrhoids. Scope inserted into the rectum advanced to ileocecal valve with minimal difficulty. Insufflation extraction of the scope including a retroflex in the rectum had the above findings Impression: No polyps. Severe diverticulosis. Hemorrhoidal tags and grade 2 - 3 hemorrhoids. Plan: Repeat colonoscopy in 10 years unless otherwise indicated by change in family history or clinical condition Sedation minutes: 14 Findings: divertiulosis and internal hemorrhoids Specimen(s): none sent Complications: none Impression: No polyps, severe diverticulosis, internal hemorrhoids Post-procedure Recommendations: Colonoscopy in 10 years Follow up: as needed Disposition: PACU
[2022-01-12] MEDS: fentaNYL 250 MCG/5 ML INJ 125 MCG IV (10:16)
[2022-01-12] MEDS: MIDAZOLAM 5 MG/5 ML VIAL 4 MG IV (10:17)
[2022-01-12 10:25] VITALS: BP 103/61; PULSE 65; RESP 15; TEMP 36.2; O2SAT 98
[2022-01-12 10:30] VITALS: BP 115/82; PULSE 61; RESP 15; O2SAT 98
[2022-01-12 10:34] VITALS: BP 122/79; PULSE 60; RESP 16; O2SAT 99
[2022-01-12 10:40] VITALS: BP 123/91; PULSE 58; RESP 15; O2SAT 97
--- NOTE | 2022-01-12 10:40 | SUR.PHASEII ---
Pt A&Ox4, denies any distress, VSS, abdomen is soft, and ready to discharge home. Discharge instructions reviewed with pt and time allowed for questions. Handoff to JACQUE Foster for phase 2 nursing.
== END 2022-01-12 10:45 | disposition home or self-care (01) ==
PROVIDERS: PCP Student in an Organized Health Care Education/Training Program; Referring Provider Surgery; Visit Provider Surgery
PROC: 0DJD8ZZ Inspection of Lower Intestinal Tract, Via Natural or Artificial Opening Endoscopic (ICD-10-PCS; CPT 45378; principal; 2022-01-12 10:00)
DX: Z12.11 Encounter for screening for malignant neoplasm of colon (principal); K57.30 Diverticulosis of large intestine without perforation or abscess without bleeding; K64.2 Third degree hemorrhoids; I10 Essential (primary) hypertension; E78.2 Mixed hyperlipidemia
CPT/HCPCS: G0121; 99152; J2250; J3010

== ENCOUNTER 2022-04-21 00:51 | Emergency (ER) | payer OTHER, MEDICAID, SELFPAY ==
[2020-11-22 01:02] VITALS: BMI 23.0
[2022-04-21 01:00] VITALS: BP 175/104; PULSE 87; RESP 20; TEMP 36.4; O2SAT 99; BMI 22.3
--- NOTE | 2022-04-21 01:14 | ED.NAVMDI ---
HPI - Nausea/Vomiting/Diarrhea General Chief complaint: Nausea/Vomiting/Diarrhea Stated complaint: NAUSEA/THROAT SWOLLEN Time Seen by Provider: 04/21/22 01:06 Source: patient Mode of arrival: Ambulatory Limitations: no limitations History of Present Illness HPI Narrative: Patient is a 61-year-old male here for evaluation of nausea and vomiting and a sore throat what he states is S1 throat. Earlier this week he was diagnosed with COVID. He states that his whole family was diagnosed. He felt poorly and so he tested himself at home. All those symptoms improved until the symptoms that brought him to the emergency department today started within the past 24 hours. He states that it hurts for him to swallow. No shortness of breath. Related Data Home Medications Medication Instructions Recorded Confirmed aspirin 81 mg tablet,delayed 81 mg PO DAILY 12/24/19 03/07/22 release Previous Rx's Medication Instructions Recorded multivitamin with folic acid 400 1 tab PO DAILY #30 tabs 11/30/20 mcg tablet (Tab-A-Brandon) thiamine HCl (vitamin B1) 100 mg 100 mg PO DAILY #30 tabs 11/30/20 tablet (Vitamin B-1) peg 3350-electrolytes 236 240 ml PO Q10M #4,000 mL 01/03/22 gram-22.74 gram-6.74 gram-5.86 gram solution (Golytely) gabapentin 300 mg capsule 300 mg PO TID #90 caps 03/07/22 lisinopril 20 mg tablet 20 mg PO DAILY #30 tabs 03/07/22 metoprolol tartrate 50 mg tablet 50 mg PO BID #180 tabs 03/07/22 atorvastatin 20 mg tablet 20 mg PO DAILY #90 tabs 04/09/22 lidocaine HCl 2 % mucosal solution 1 applic mucous membrane TID PRN 04/21/22 pain #100 mL Allergies Allergy/AdvReac Type Severity Reaction Status Date / Time fluconazole Allergy Severe SWEATING, Verified 03/07/22 10:38 SOB, NAUSEA diclofenac [DICLOFENAC] Allergy Intermediate RASH ON Verified 03/07/22 10:38 FACE; LIGHTHEADEDNESS Review of Systems Review of Systems ROS Unobtainable: All systems reviewed & are unremarkable except as noted in HPI and below 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 Essential hypertension (10/09/16) History of kidney disease as a child (10/09/16) Mixed hyperlipidemia Surgical History History of nephrectomy (1977) History of unilateral nephrectomy (10/09/16) Hx of appendectomy (1977) Hx of hernia repair (1999) Family History Father Congestive heart failure Diabetes mellitus COPD (chronic obstructive pulmonary disease) Mother Hypertension Diabetes mellitus Cancer Social History household members: spouse Smoking Status: Current every day smoker alcohol intake: current substance use type: marijuana Smoking Status: Current every day smoker tobacco type: cigarettes alcohol intake frequency: 3 or more drinks per day Alcohol type: beer Substance Use Type: marijuana Exam Initial Vital Signs Initial Vital Signs: Vital Signs Temperature 97.6 F 04/21/22 01:00 Pulse Rate 87 04/21/22 01:00 Respiratory Rate 20 04/21/22 01:00 Blood Pressure 175/104 H 04/21/22 01:00 Pulse Oximetry 99 04/21/22 01:00 Oxygen Delivery Method 04/21/22 01:00 Const General: cooperative and comfortable HENMT Head: normal to inspection Mouth: moist mucous membranes Throat: posterior oropharynx normal, tonsils normal and no uvular edema Resp Effort & Inspection: normal respiratory effort Auscultation: clear to auscultation bilaterally Cardio Rate: regular rate Skin General: no rashes or lesions noted Neuro General: patient alert, patient awake and moves all extremities Extrem General: normal to inspection and capillary refill normal Psych Appearance: grossly normal and well kempt Course Orders Ordered: ED Orders 04/21/22 01:15 Throat Culture Stat 04/21/22 01:30 Basic Metabolic Panel Stat Complete Blood Count AUTO DIFF Stat Discontinued Medications Sodium Chloride (Normal Saline 0.9%) 1,000 mls @ 1,000 mls/hr IV BOLUS ONE Stop: 04/21/22 02:12 Last Admin: 04/21/22 01:28 Dose: 1,000 mls/hr Documented By: HUMERA Lidocaine HCl (Lidocaine Viscous 2% 15 Ml Solution) 15 ml PO NOW ONE Stop: 04/21/22 02:56 Last Admin: 04/21/22 02:57 Dose: 15 ml Documented By: HUMERA Metoclopramide HCl (Metoclopramide 10 Mg/2 Ml Inj) 10 mg IV NOW ONE Stop: 04/21/22 02:41 Last Admin: 04/21/22 02:44 Dose: 10 mg Documented By: HUMERA Ondansetron HCl (Ondansetron 4 Mg/2 Ml Inj) 4 mg IV NOW ONE Stop: 04/21/22 01:14 Last Admin: 04/21/22 01:28 Dose: 4 mg Documented By: HUMERA Vital Signs Vital signs: Vital Signs - 8 hr 04/21/22 01:00 Temperature 97.6 F Pulse Rate 87 Respiratory Rate 20 Blood Pressure 175/104 H Pulse Oximetry 99 Oxygen Delivery Method Room Air MDM - Nausea/Vomiting/Diarrhea Lab Data Result diagrams: 04/21/22 01:30 04/21/22 01:30 Labs: Lab Results 04/21/22 04/21/22 Range/Units 01:30 01:30 WBC 5.0 (4.5-11.0) X10^3/uL RBC 4.23 L (4.5-5.9) X10^6/uL Hgb 14.2 (13.5-17.5) g/dL Hct 41.4 (41-53) % MCV 97.6 (80-100) fL MCH 33.4 (26-34) PG MCHC 34.2 (30-36) % RDW 14.0 (11.6-14.8) % Plt Count 244 (150-400) X10^3/uL Neut % (Auto) 62.2 (50-75) % Lymph % (Auto) 17.4 L (25-40) % [place] % (Auto) 16.4 H (3-14) % Eos % (Auto) 1.1 L (2-4) % Baso % (Auto) 2.9 H (0-2) % Neut # (Auto) 3100 (6581-1148) /uL Lymph # (Auto) 900 L (6249-9688) /uL [place] # (Auto) 800 (0-900) /uL Eos # (Auto) 100 (0-450) /uL Baso # (Auto) 100 (0-100) /uL Sodium 132 L (137-145) mmol/L Potassium 4.4 (3.4-5.1) mmol/L Chloride 91 L (98-107) mmol/L Carbon Dioxide 28 (22-32) mmol/L BUN 8 L (9-20) mg/dL Creatinine 0.71 (0.66-1.25) mg/dL Estimated GFR > 60 (>60) mL/min BUN/Creatinine Ratio 11.3 (6-22) Glucose 116 H (80-110) mg/dL Calcium 9.2 (8.4-10.2) mg/dL Point of Care Testing Rapid Strep A Negative MDM Narrative Medical decision making narrative: Rapid strep is negative. Throat cultures pending at the time of discharge the patient was informed of this that we will contact him if we need to start any antibiotics. Has a benign appearing oropharynx. Nausea improved with Reglan. Viscous lidocaine also improved his sore throat somewhat. No indication for antibiotics currently. Will discharge patient home with instructions for symptom treatment. He was given return precautions. He expressed understanding and agreement. Discharge Plan Departure Patient Disposition: Home Clinical Impression: Nausea, Sore throat Instructions: Sore Throat, DI for Nausea -- Adult Activity Restrictions/Additional Instructions: I do recommend that you increase your fluid intake by drinking small amounts of fluid over longer periods of time. A prescription for the viscous lidocaine was sent to the pharmacy of your choice. Please use it as needed. Contact your primary doctor for follow-up. There was a throat culture pending at the time of your discharge and we will contact you if we need to start any antibiotics. Return to the emergency department for any new symptoms. Prescriptions: New lidocaine HCl 2 % solution 1 applic mucous membrane TID PRN (Reason: pain) Qty: 100 0RF No Action multivitamin with folic acid [Tab-A-Brandon] 400 mcg tablet 1 tab PO DAILY Qty: 30 3RF thiamine HCl (vitamin B1) [Vitamin B-1] 100 mg tablet 100 mg PO DAILY Qty: 30 3RF peg 3350-electrolytes [Golytely] 236-22.74-6.74 -5.86 gram recon soln 240 ml PO Q10M Qty: 4000 0RF Rx Instructions: Take as directed by Physician atorvastatin 20 mg tablet 20 mg PO DAILY Qty: 90 2RF metoprolol tartrate 50 mg tablet 50 mg PO BID Qty: 180 3RF Hold Instructions: alcohol withdrawal lisinopril 20 mg tablet 20 mg PO DAILY Qty: 30 0RF Rx Instructions: Begin with 1/2 tab for first week gabapentin 300 mg capsule 300 mg PO TID Qty: 90 0RF aspirin 81 mg tablet,delayed release (DR/EC) 81 mg PO DAILY Referrals: Elvin Payne MD [Primary Care Provider] -
--- NOTE | 2022-04-21 01:20 | PC.NURSE ---
pt has been sick x 1 week all of the family tested positive for covid last week and he has been feeling bad with n/v and now he presents feeling like his throat is closing up making it difficult to swallow, pt's voice is not muffled and no drooling is noted
[2022-04-21] MEDS: SODIUM CHLORIDE 0.9% 1,000 ML 1000 ML IV (01:28)
[2022-04-21] MEDS: ONDANSETRON 4 MG/2 ML INJ IV (01:28)
[2022-04-21 01:46] LABS: Add Manual Diff / Slide Review NO; Basophils Absolute Auto 100 /uL (0-100); Basophils Percent Auto 2.9 % (0-2); Eosinophils Absolute Auto 100 /uL (0-450); Eosinophils Percent Auto 1.1 % (2-4); Hematocrit 41.4 % (41-53); Hemoglobin 14.2 g/dL (13.5-17.5); Lymphocytes Absolute Auto 900 /uL (1100-4500); Lymphocytes Percent Auto 17.4 % (25-40); Mean Corpuscular HGB Conc 34.2 % (30-36); Mean Corpuscular Hemoglobin 33.4 PG (26-34); Mean Corpuscular Volume 97.6 fL (80-100); Monocytes Absolute Auto 800 /uL (0-900); Monocytes Percent Auto 16.4 % (3-14); Neutrophils Absolute Auto 3100 /uL (1500-7000); Neutrophils Percent Auto 62.2 % (50-75); Platelet Count 244 X10^3/uL (150-400); Red Blood Cell Count 4.23 X10^6/uL (4.5-5.9)
[2022-04-21 01:49] LABS: BUN Creatinine Ratio 11.3 (6-22); Blood Urea Nitrogen 8 mg/dL (9-20); Calcium 9.2 mg/dL (8.4-10.2); Carbon Dioxide 28 mmol/L (22-32); Chloride 91 mmol/L (98-107); Estimated Glomerular Filt Rate > 60 mL/min (>60); Glucose 116 mg/dL (80-110); HEMOLYSIS < 15 (0-50); Potassium 4.4 mmol/L (3.4-5.1); Sodium 132 mmol/L (137-145)
[2022-04-21] MEDS: METOCLOPRAMIDE 10 MG/2 ML INJ IV (02:44)
[2022-04-21] MEDS: LIDOCAINE VISCOUS 2% 15 ML SOLUTION PO (02:57)
[2022-04-21] MEDS: ONDANSETRON 4 MG ODT PREPACK 1 BOTTLE MISC (03:33)
== END 2022-04-21 03:39 | disposition home or self-care (01) ==
PROVIDERS: Emergency Provider Emergency Medicine; PCP Student in an Organized Health Care Education/Training Program
DX: R11.2 Nausea with vomiting, unspecified (principal); J02.9 Acute pharyngitis, unspecified
CPT/HCPCS: 36415; 80048; 85025; 87070; 87880; 96361; 96374; 96375; 99284; J2405; J2765

== ENCOUNTER 2023-01-20 17:42 | Emergency (ER) | payer OTHER, MEDICAID, SELFPAY ==
[2020-11-22 01:02] VITALS: BMI 23.0
[2023-01-20] VITALS (36 sets, daily range): BP systolic 119–191; BP diastolic 77–117; PULSE 73–113; RESP 13–33; TEMP 36.8; O2SAT 93–98; BMI 22.3
--- NOTE | 2023-01-20 17:57 | DI.RAD.S_ITS ---
PROCEDURE: XR CHEST 1V INDICATIONS: chest pain TECHNIQUE: One view of the chest was acquired. COMPARISON: [facility], CR, XR CHEST 1V, 10/02/2020, 14:07. [facility], CR, XR CHEST 1V, 11/21/2020, 21:25. FINDINGS: Surgical changes and devices: Cholecystectomy clips are seen. Lungs and pleura: Lungs are clear. No pleural effusions or pneumothorax. Mediastinum: Mediastinal contours appear normal. Heart size is normal. Bones and chest wall: No suspicious bony lesions. Age-appropriate bony degenerative changes are seen. Overlying soft tissues appear unremarkable. IMPRESSION: No acute cardiopulmonary process is seen. Postoperative and degenerative changes are seen. Dictated by: Carmelo Dumont M.D. on 01/20/2023 at 17:23 Approved by: Carmelo Dumont M.D. on 01/20/2023 at 17:24
--- NOTE | 2023-01-20 18:08 | PC.NURSE ---
Pt reports missing his morning BP meds. He usually takes metoprolol 50mg twice daily and atorvastatin 20mg in the evening.
[2023-01-20 18:11] LABS: Add Manual Diff / Slide Review NO; Basophils Absolute Auto 0 /uL (0-100); Basophils Percent Auto 0.3 % (0-2); Eosinophils Absolute Auto 0 /uL (0-450); Hematocrit 40.3 % (41-53); Hemoglobin 14.1 g/dL (13.5-17.5); Lymphocytes Absolute Auto 600 /uL (1100-4500); Lymphocytes Percent Auto 6.4 % (25-40); Mean Corpuscular Hemoglobin 34.6 PG (26-34); Monocytes Absolute Auto 600 /uL (0-900); Neutrophils Absolute Auto 8400 /uL (1500-7000); Neutrophils Percent Auto 87.3 % (50-75); Platelet Count 174 X10^3/uL (150-400); Red Blood Cell Count 4.07 X10^6/uL (4.5-5.9); Red Cell Distribution Width 13.8 % (11.6-14.8); White Blood Cell Count 9.6 X10^3/uL (4.5-11.0)
[2023-01-20 18:20] LABS: Prothrombin Time 11.1 SECONDS (10.1-12.7)
[2023-01-20 18:23] LABS: PTT Partial Thromboplastin Tim 27 SECONDS (26-36)
[2023-01-20] MEDS: METOPROLOL IR 25 MG TABLET 50 MG PO (18:26)
[2023-01-20] MEDS: ASPIRIN 81 MG CHEW TAB 324 MG PO (18:26)
[2023-01-20 18:28] LABS: Alanine Aminotransferase 141 IU/L (<50); Albumin 4.8 g/dL (3.5-5.0); Albumin Globulin Ratio 1.3 (1.0-2.8); Alkaline Phosphatase 75 U/L (38-126); Aspartate Aminotransferase 178 IU/L (17-59); BUN Creatinine Ratio 14.7 (6-22); Bilirubin Total 1.2 mg/dL (0.2-1.3); Blood Urea Nitrogen 10 mg/dL (9-20); Calcium 11.2 mg/dL (8.4-10.2); Carbon Dioxide 31 mmol/L (22-32); Chloride 91 mmol/L (98-107); Creatine Kinase 81 U/L (55-170); Estimated Glomerular Filt Rate > 60 mL/min (>60); Globulin 3.7 g/dL (1.7-4.1); Glucose 112 mg/dL (80-110); HEMOLYSIS 15 (0-50); Lipase 414 U/L (23-300); Magnesium 1.1 mg/dL (1.6-2.3); Potassium 3.7 mmol/L (3.4-5.1); Sodium 138 mmol/L (137-145); Total Protein 8.5 g/dL (6.3-8.2)
[2023-01-20] MEDS: SODIUM CHLORIDE 0.9% 1,000 ML 1000 ML IV ×2 (18:30→21:14)
[2023-01-20 18:39] LABS: Troponin I 0.013 ng/mL (0.01-0.034)
--- NOTE | 2023-01-20 19:46 | PC.NURSE ---
Pt with episode of dry heaving. Pt reports he has been nauseous all day after working outside unable to keep PO fluids down. Pt reports continued chest pressure with heart burn like symptoms. Provider made aware.
--- NOTE | 2023-01-20 20:15 | ED.CHESTPAIN ---
HPI - Chest Pain General Chief Complaint: Chest Pain Stated Complaint: overheated, V/ SOB T-0 Time Seen by Provider: 01/20/23 18:07 History of Present Illness HPI narrative: 62-year-old male daily smoker with history of hypertension, hyperlipidemia presents with a chief complaint of sore throat, nausea and vomiting he states that he had been working out in the hot sun today and became overheated and developed chest pain. He is also short of breath and has blurry vision. He states he was in his normal state of health when he went to bed, felt fine when he woke up and did not start feeling poorly until he was working hard in the heat became sweaty and feels like he overheated. He tried drinking water but was unable to keep it down. He admits to occasional sharp and stabbing left-sided chest pain that is very brief in nature and is absent of any provocation, palliation or radiation. He denies any change in medications or diet. Related Data Home Medications Medication Instructions Recorded Confirmed aspirin 81 mg tablet,delayed 81 mg PO DAILY 12/24/19 03/07/22 release Previous Rx's Medication Instructions Recorded multivitamin with folic acid 400 1 tab PO DAILY #30 tabs 11/30/20 mcg tablet (Tab-A-Brandon) thiamine HCl (vitamin B1) 100 mg 100 mg PO DAILY #30 tabs 11/30/20 tablet (Vitamin B-1) peg 3350-electrolytes 236 240 ml PO Q10M #4,000 mL 01/03/22 gram-22.74 gram-6.74 gram-5.86 gram solution (Golytely) gabapentin 300 mg capsule 300 mg PO TID #90 caps 03/07/22 metoprolol tartrate 50 mg tablet 50 mg PO BID #180 tabs 03/07/22 atorvastatin 20 mg tablet 20 mg PO DAILY #90 tabs 04/09/22 lidocaine HCl 2 % mucosal solution 1 applic mucous membrane TID PRN 04/21/22 pain #100 mL lisinopril 20 mg tablet 20 mg PO DAILY #30 tabs 06/22/22 ondansetron 4 mg disintegrating 4 mg PO TID-QID PRN nausea and 01/20/23 tablet vomiting #10 tabs pantoprazole 40 mg tablet,delayed 40 mg PO DAILY #30 tabs 01/20/23 release (Protonix) Allergies Allergy/AdvReac Type Severity Reaction Status Date / Time fluconazole Allergy Severe SWEATING, Verified 03/07/22 10:38 SOB, NAUSEA diclofenac [DICLOFENAC] Allergy Intermediate RASH ON Verified 03/07/22 10:38 FACE; LIGHTHEADEDNESS Review of Systems Review of Systems Narrative: GENERAL: See HPI HEENT: Denies sinus pain, ear pain, sore throat, difficulty swallowing, dizziness. RESPIRATORY: Denies dyspnea, cough, wheezing, hemoptysis, sputum. CARDIOVASCULAR: See HPI GASTROINTESTINAL: See HPI : Denies dysuria, frequency, incontinence, hematuria, urinary retention. MUSCULOSKELETAL: denies weakness, joint pain, or bony pain SKIN: Denies rash, skin lesions, or other NEUROLOGIC: Denies weakness, headache, numbness, change in speech, confusion, seizures, incoordination. PSYCHIATRIC: No concerning psychosocial issues. 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 Essential hypertension (10/09/16) History of kidney disease as a child (10/09/16) Mixed hyperlipidemia Surgical History History of nephrectomy (1977) History of unilateral nephrectomy (10/09/16) Hx of appendectomy (1977) Hx of hernia repair (1999) Family History Father Congestive heart failure Diabetes mellitus COPD (chronic obstructive pulmonary disease) Mother Hypertension Diabetes mellitus Cancer Social History household members: spouse Smoking Status: Current every day smoker alcohol intake: current substance use type: marijuana Smoking Status: Current every day smoker tobacco type: cigarettes alcohol intake frequency: 3 or more drinks per day Alcohol type: beer Substance Use Type: marijuana Exam Narrative Exam Narrative: GENERAL: [62] year old patient appears stated age. Well-developed patient, in mild distress. HEAD: Atraumatic. Normocephalic. EYES: Pupils equal round and reactive. Extraocular motions intact. No scleral icterus. No injection or drainage. ENT: Nose without bleeding, purulent drainage. Throat without erythema, tonsillar hypertrophy or exudate. Airway patent. NECK: Trachea midline. Non tender CARDIOVASCULAR: Regular rate and rhythm without murmurs, gallops, or rubs. RESPIRATORY: Clear to auscultation. Breath sounds equal bilaterally. No wheezes, rales, or rhonchi. GASTROINTESTINAL: Abdomen soft, non-tender, nondistended. EXTREMITIES: No edema or joint tenderness. BACK: Nontender without deformity or crepitance. No flank tenderness. NEURO: AOx3. SKIN: No rash or erythema of visible areas Initial Vital Signs Initial Vital Signs: Vital Signs Temperature 98.2 F 01/20/23 17:44 Pulse Rate 113 H 01/20/23 17:44 Respiratory Rate 20 01/20/23 17:44 Blood Pressure 184/102 H 01/20/23 17:44 Pulse Oximetry 98 01/20/23 17:44 Oxygen Delivery Method Room Air 01/20/23 17:44 Course Orders Ordered: ED Orders 01/20/23 17:53 EKG-12 Lead Stat 01/20/23 17:57 XR chest 1V Stat 01/20/23 18:04 Complete Blood Count AUTO DIFF Stat Comprehensive Metabolic Panel Stat Lipase Stat Magnesium Stat PTT Partial Thromboplastin Jose Stat Prothrombin Time INR Stat Troponin & CK Cardiac Panel Stat 01/20/23 20:24 US abdomen limited Stat 01/20/23 21:30 Comprehensive Metabolic Panel Stat Troponin & CK Cardiac Panel Stat Discontinued Medications Aspirin (Aspirin 81 Mg Chew Tab) 324 mg PO NOW ONE Stop: 01/20/23 17:58 Last Admin: 01/20/23 18:26 Dose: 324 mg Documented By: KIARRA Sodium Chloride (Normal Saline 0.9%) 1,000 mls @ 1,000 mls/hr IV BOLUS ONE Stop: 01/20/23 19:11 Last Infusion: 01/20/23 19:17 Dose: 0 mls/hr Documented By: Admin: 01/20/23 18:30 Dose: 1,000 mls/hr Documented By: KIARRA Magnesium Sulfate (Magnesium Sulfate) 2 gm in 50 mls @ 25 mls/hr IV NOW ONE Stop: 01/20/23 22:14 Last Infusion: 01/20/23 22:01 Dose: 0 mls/hr Documented By: Co-signed By: RENU Admin: 01/20/23 20:22 Dose: 25 mls/hr Documented By: Co-signed By: LIBRADO Sodium Chloride (Normal Saline 0.9%) 1,000 mls @ 1,000 mls/hr IV BOLUS ONE Stop: 01/20/23 22:08 Last Infusion: 01/20/23 22:02 Dose: 0 mls/hr Documented By: Admin: 01/20/23 21:14 Dose: 1,000 mls/hr Documented By: Lorazepam (Lorazepam 2 Mg/Ml Inj) 1 mg IV NOW ONE Stop: 01/20/23 21:10 Last Admin: 01/20/23 21:14 Dose: 1 mg Documented By: Metoprolol Tartrate (Metoprolol Ir 25 Mg Tablet) 50 mg PO NOW ONE Stop: 01/20/23 18:13 Last Admin: 01/20/23 18:26 Dose: 50 mg Documented By: KIARRA Nitroglycerin (Nitroglycerin 0.4 Mg Sl Tab) 0.4 mg SL [id number] PRN PRN Reason: Chest Pain Last Admin: 01/20/23 20:39 Dose: 0.4 mg Documented By: Admin: 01/20/23 20:33 Dose: 0.4 mg Documented By: Admin: 01/20/23 20:21 Dose: 0.4 mg Documented By: Ondansetron HCl (Ondansetron 4 Mg/2 Ml Inj) 4 mg IV NOW ONE Stop: 01/20/23 20:16 Last Admin: 01/20/23 20:21 Dose: 4 mg Documented By: Ondansetron HCl (Ondansetron 4 Mg Odt Prepack) 1 bottle MISC SEEINSTR ONE Stop: 01/20/23 21:15 Last Admin: 01/20/23 22:22 Dose: 1 bottle Documented By: Pantoprazole Sodium (Pantoprazole 40 Mg Vial) 40 mg IV NOW ONE Stop: 01/20/23 20:16 Last Admin: 01/20/23 20:21 Dose: 40 mg Documented By: Reevaluation(s) Reevaluation #1: Patient feels significant improvement in above-stated complaints after above noted therapies Vital Signs Vital signs: Vital Signs - 8 hr 01/20/23 18:10 01/20/23 18:11 01/20/23 18:30 Pulse Rate 97 H 99 H Respiratory Rate 20 22 Blood Pressure 191/104 H 186/102 H Pulse Oximetry 98 95 Oxygen Delivery Method Room Air 01/20/23 18:30 01/20/23 18:35 01/20/23 18:35 Pulse Rate 105 H 93 H Respiratory Rate 22 21 Blood Pressure 178/100 H Pulse Oximetry 94 95 Oxygen Delivery Method 01/20/23 18:40 01/20/23 18:40 01/20/23 18:45 Pulse Rate 89 92 H Respiratory Rate 15 29 H Blood Pressure 176/92 H Pulse Oximetry 97 97 Oxygen Delivery Method 01/20/23 18:45 01/20/23 18:50 01/20/23 18:50 Pulse Rate 86 Respiratory Rate 19 Blood Pressure 182/117 H 174/93 H Pulse Oximetry 97 Oxygen Delivery Method 01/20/23 18:55 01/20/23 18:55 01/20/23 19:00 Pulse Rate 86 Respiratory Rate 19 Blood Pressure 174/99 H 173/97 H Pulse Oximetry 96 Oxygen Delivery Method 01/20/23 19:00 01/20/23 19:05 01/20/23 19:05 Pulse Rate 85 85 Respiratory Rate 23 27 H Blood Pressure 177/98 H Pulse Oximetry 97 96 Oxygen Delivery Method 01/20/23 19:10 01/20/23 19:10 01/20/23 19:15 Pulse Rate 87 87 Respiratory Rate 20 19 Blood Pressure 179/103 H Pulse Oximetry 96 95 Oxygen Delivery Method 01/20/23 19:15 01/20/23 19:20 01/20/23 19:20 Pulse Rate 85 Respiratory Rate 21 Blood Pressure 160/92 H 160/94 H Pulse Oximetry 96 Oxygen Delivery Method 01/20/23 19:25 01/20/23 19:25 01/20/23 19:30 Pulse Rate 90 Respiratory Rate 16 Blood Pressure 165/102 H 157/94 H Pulse Oximetry 96 Oxygen Delivery Method 01/20/23 19:30 01/20/23 19:35 01/20/23 19:35 Pulse Rate 88 86 Respiratory Rate 18 20 Blood Pressure 162/99 H Pulse Oximetry 95 95 Oxygen Delivery Method 01/20/23 19:40 01/20/23 19:40 01/20/23 19:45 Pulse Rate 85 92 H Respiratory Rate 19 16 Blood Pressure 160/97 H Pulse Oximetry 96 96 Oxygen Delivery Method 01/20/23 19:50 01/20/23 19:50 01/20/23 19:55 Pulse Rate 92 H 93 H Respiratory Rate 22 19 Blood Pressure 165/103 H Pulse Oximetry 97 95 Oxygen Delivery Method 01/20/23 19:55 01/20/23 20:00 01/20/23 20:00 Pulse Rate 90 Respiratory Rate 20 Blood Pressure 168/102 H 176/105 H Pulse Oximetry 95 Oxygen Delivery Method 01/20/23 20:05 01/20/23 20:05 01/20/23 20:11 Pulse Rate 85 92 H Respiratory Rate 17 14 Blood Pressure 172/102 H Pulse Oximetry 96 97 Oxygen Delivery Method 01/20/23 20:11 01/20/23 20:15 01/20/23 20:15 Pulse Rate 106 H Respiratory Rate 33 H Blood Pressure 184/105 H 170/107 H Pulse Oximetry 97 Oxygen Delivery Method 01/20/23 20:20 01/20/23 20:25 01/20/23 20:25 Pulse Rate 103 H 90 Respiratory Rate 24 21 Blood Pressure 174/99 H Pulse Oximetry 96 96 Oxygen Delivery Method 01/20/23 20:30 01/20/23 20:30 01/20/23 20:35 Pulse Rate 98 H 92 H Respiratory Rate 18 Blood Pressure 170/102 H Pulse Oximetry 93 94 Oxygen Delivery Method 01/20/23 20:35 01/20/23 20:40 01/20/23 20:40 Pulse Rate 82 Respiratory Rate 13 Blood Pressure 163/97 H 166/94 H Pulse Oximetry 95 Oxygen Delivery Method 01/20/23 20:45 01/20/23 20:45 01/20/23 20:51 Pulse Rate 89 94 H Respiratory Rate 17 Blood Pressure 119/77 Pulse Oximetry 97 93 Oxygen Delivery Method 01/20/23 20:51 01/20/23 20:55 01/20/23 20:55 Pulse Rate 80 Respiratory Rate 17 Blood Pressure 169/96 H 165/100 H Pulse Oximetry 94 Oxygen Delivery Method 01/20/23 21:00 01/20/23 21:00 01/20/23 21:30 Pulse Rate 78 Respiratory Rate 22 Blood Pressure 163/98 H 177/93 H Pulse Oximetry 94 Oxygen Delivery Method 01/20/23 21:30 01/20/23 22:00 01/20/23 22:00 Pulse Rate 73 73 Respiratory Rate 22 Blood Pressure 188/94 H Pulse Oximetry 95 Oxygen Delivery Method MDM - Chest Pain Lab Data 01/20/23 18:04 01/20/23 21:30 Labs: Lab Results 01/20/23 01/20/23 01/20/23 Range/Units 18:04 18:04 18:04 WBC 9.6 (4.5-11.0) X10^3/uL RBC 4.07 L (4.5-5.9) X10^6/uL Hgb 14.1 (13.5-17.5) g/dL Hct 40.3 L (41-53) % MCV 99.0 (80-100) fL MCH 34.6 H (26-34) PG MCHC 35.0 (30-36) % RDW 13.8 (11.6-14.8) % Plt Count 174 (150-400) X10^3/uL Neut % (Auto) 87.3 H (50-75) % Lymph % (Auto) 6.4 L (25-40) % [place] % (Auto) 6.0 (3-14) % Eos % (Auto) 0.0 L (2-4) % Baso % (Auto) 0.3 (0-2) % Neut # (Auto) 8400 H (7261-7894) /uL Lymph # (Auto) 600 L (8790-6492) /uL [place] # (Auto) 600 (0-900) /uL Eos # (Auto) 0 (0-450) /uL Baso # (Auto) 0 (0-100) /uL PT 11.1 (10.1-12.7) SECONDS INR 1.0 (0.9-1.3) APTT 27 (26-36) SECONDS Sodium 138 (137-145) mmol/L Potassium 3.7 (3.4-5.1) mmol/L Chloride 91 L (98-107) mmol/L Carbon Dioxide 31 (22-32) mmol/L BUN 10 (9-20) mg/dL Creatinine 0.68 (0.66-1.25) mg/dL Estimated GFR > 60 (>60) mL/min BUN/Creatinine Ratio 14.7 (6-22) Glucose 112 H (80-110) mg/dL Calcium 11.2 H (8.4-10.2) mg/dL Magnesium 1.1 L (1.6-2.3) mg/dL Total Bilirubin 1.2 (0.2-1.3) mg/dL AST 178 H (17-59) IU/L ALT 141 H (<50) IU/L Alkaline Phosphatase 75 (38-126) U/L Total Creatine Kinase 81 (55-170) U/L Troponin I 0.013 (0.01-0.034) ng/mL Total Protein 8.5 H (6.3-8.2) g/dL Albumin 4.8 (3.5-5.0) g/dL Globulin 3.7 (1.7-4.1) g/dL Albumin/Globulin Ratio 1.3 (1.0-2.8) Lipase 414 H (23-300) U/L 01/20/23 Range/Units 21:30 WBC (4.5-11.0) X10^3/uL RBC (4.5-5.9) X10^6/uL Hgb (13.5-17.5) g/dL Hct (41-53) % MCV (80-100) fL MCH (26-34) PG MCHC (30-36) % RDW (11.6-14.8) % Plt Count (150-400) X10^3/uL Neut % (Auto) (50-75) % Lymph % (Auto) (25-40) % [place] % (Auto) (3-14) % Eos % (Auto) (2-4) % Baso % (Auto) (0-2) % Neut # (Auto) (8739-6578) /uL Lymph # (Auto) (9559-6746) /uL [place] # (Auto) (0-900) /uL Eos # (Auto) (0-450) /uL Baso # (Auto) (0-100) /uL PT (10.1-12.7) SECONDS INR (0.9-1.3) APTT (26-36) SECONDS Sodium 134 L (137-145) mmol/L Potassium 3.7 (3.4-5.1) mmol/L Chloride 97 L (98-107) mmol/L Carbon Dioxide 31 (22-32) mmol/L BUN 9 (9-20) mg/dL Creatinine 0.63 L (0.66-1.25) mg/dL Estimated GFR > 60 (>60) mL/min BUN/Creatinine Ratio 14.3 (6-22) Glucose 109 (80-110) mg/dL Calcium 9.9 (8.4-10.2) mg/dL Magnesium (1.6-2.3) mg/dL Total Bilirubin 0.9 (0.2-1.3) mg/dL AST 116 H (17-59) IU/L ALT 114 H (<50) IU/L Alkaline Phosphatase 55 (38-126) U/L Total Creatine Kinase 65 (55-170) U/L Troponin I 0.016 (0.01-0.034) ng/mL Total Protein 7.0 (6.3-8.2) g/dL Albumin 3.7 (3.5-5.0) g/dL Globulin 3.3 (1.7-4.1) g/dL Albumin/Globulin Ratio 1.1 (1.0-2.8) Lipase (23-300) U/L MDM Narrative Medical decision making narrative: [62] year old patient presents with N/V Multiple etiologies for patient's symptoms considered including, but not limited to: [dehydration vs. heat exhaustion vs. cardiac ischemia vs. pancreatitis vs. other] Prior Charts reviewed in our EMR Primary Historian: patient Labs reviewed and interpreted by myself: No leukocytosis or left shift, no signs of anemia. Sodium and potassium within normal, renal function within normal, magnesium significantly low at 1.1 and has been replaced. Lipase slightly elevated 414. Troponin within normal Imaging reviewed: Chest x-ray without acute findings. Abdominal ultrasound without significant findings Patient's history and physical exam are very reassuring. He has no exertional symptoms, no EKG changes, troponin x2 negative. Patient denies any recent exercise intolerance, no travel, suspicion for pulmonary embolism extremely low, low wells. Lipase is slightly elevated but patient does not have any reproducible or ongoing pain. He feels significant improvement after receiving fluids and antiemetics. Patient's symptoms improved over duration of stay with above-stated therapies. Findings and discharge diagnosis discussed with patient/family followed by verbalization of understanding Return precautions discussed with patient/family whom verbalize understanding of diagnosis and plan Discharge Plan Departure Patient Disposition: Home Clinical Impression: Heat exhaustion, Vomiting Instructions: DI for Dehydration -- Adult, DI for Vomiting -- Adult Activity Restrictions/Additional Instructions: *You have been diagnosed with [dehydration, low magnesium] * As we discussed your history and physical exam as well as labs and imaging are very reassuring. There is no evidence of any severe diagnoses that would require a specific or immediate intervention. *What to do: *Please continue to take your regular medications as directed. [x ] New medication prescriptions sent to your pharmacy: [ [facility]] *Please follow up with your primary care provider in 2-3 days, call for an appointment. Let them know you were seen in the Emergency Department and that we ask that you be seen in follow up. We will electronically transmit a record of today's note if your PCP is in our system *Please consider a clear liquid diet for the next 24-48 hours and then slowly advance to regular as tolerated. Also, try to avoid alcohol, nicotine, caffeine, spicy, acidic or fatty foods as this may worsen your symptoms *If you do not have a primary care provider please contact the [facility] Resource line at [phone]. They will ask some questions about your medical history and help get you set up with a doctor in the community. *Return to Emergency Department if you should have any new, worsening or concerning symptoms, such as [fever greater than 101 F, shaking chills, worsening pain, persistent vomiting or other bothersome symptoms] Prescriptions: New pantoprazole [Protonix] 40 mg tablet,delayed release (DR/EC) 40 mg PO DAILY Qty: 30 0RF ondansetron 4 mg tablet,disintegrating 4 mg PO TID-QID PRN (Reason: nausea and vomiting) Qty: 10 0RF No Action multivitamin with folic acid [Tab-A-Brandon] 400 mcg tablet 1 tab PO DAILY Qty: 30 3RF thiamine HCl (vitamin B1) [Vitamin B-1] 100 mg tablet 100 mg PO DAILY Qty: 30 3RF peg 3350-electrolytes [Golytely] 236-22.74-6.74 -5.86 gram recon soln 240 ml PO Q10M Qty: 4000 0RF Rx Instructions: Take as directed by Physician atorvastatin 20 mg tablet 20 mg PO DAILY Qty: 90 2RF lisinopril 20 mg tablet 20 mg PO DAILY Qty: 30 0RF metoprolol tartrate 50 mg tablet 50 mg PO BID Qty: 180 3RF Hold Instructions: alcohol withdrawal gabapentin 300 mg capsule 300 mg PO TID Qty: 90 0RF aspirin 81 mg tablet,delayed release (DR/EC) 81 mg PO DAILY lidocaine HCl 2 % solution 1 applic mucous membrane TID PRN (Reason: pain) Qty: 100 0RF Referrals: Elvin Payne MD [Primary Care Provider] - Stand Alone Forms: Patient Portal/API
[2023-01-20] MEDS: PANTOPRAZOLE 40 MG VIAL IV (20:21)
[2023-01-20] MEDS: NITROGLYCERIN 0.4 MG SL TAB SL ×3 (20:21→20:39)
[2023-01-20] MEDS: ONDANSETRON 4 MG/2 ML INJ IV (20:21)
[2023-01-20] MEDS: MAGNESIUM SULFATE 2 GM/50 ML PIGGYBACK IV (20:22)
--- NOTE | 2023-01-20 20:24 | DI.US.S_ITS ---
PROCEDURE: US ABDOMEN LIMITED INDICATIONS: PAIN NAUSEA VOMITTING TECHNIQUE: Real-time focused scanning was performed of the abdomen, with image documentation. COMPARISON: None. FINDINGS: Liver: The liver demonstrates no focal mass lesions. There is suggestion of increased parenchymal echogenicity. Gallbladder: The gallbladder demonstrates no stones, wall thickening, or pericholecystic fluid. Biliary system: No intra or extrahepatic biliary ductal dilatation. Pancreas: Visualized pancreas appears unremarkable sonographically. IMPRESSION: 1. No evidence of cholelithiasis or cholecystitis. Dictated by: Franko Antonio M.D. on 01/20/2023 at 22:11 Approved by: Franko Antonio M.D. on 01/20/2023 at 22:13
--- NOTE | 2023-01-20 20:46 | PC.NURSE ---
No relief from chest pressure/heaviness x3. Also continues to report sharp chest pain pin pricks.
[2023-01-20] MEDS: LORazepam 2 MG/ML INJ 1 MG IV (21:14)
[2023-01-20 21:47] LABS: Alanine Aminotransferase 114 IU/L (<50); Albumin 3.7 g/dL (3.5-5.0); Albumin Globulin Ratio 1.1 (1.0-2.8); Alkaline Phosphatase 55 U/L (38-126); Aspartate Aminotransferase 116 IU/L (17-59); BUN Creatinine Ratio 14.3 (6-22); Bilirubin Total 0.9 mg/dL (0.2-1.3); Blood Urea Nitrogen 9 mg/dL (9-20); Calcium 9.9 mg/dL (8.4-10.2); Carbon Dioxide 31 mmol/L (22-32); Chloride 97 mmol/L (98-107); Creatine Kinase 65 U/L (55-170); Estimated Glomerular Filt Rate > 60 mL/min (>60); Globulin 3.3 g/dL (1.7-4.1); Glucose 109 mg/dL (80-110); HEMOLYSIS 23 (0-50); Potassium 3.7 mmol/L (3.4-5.1); Sodium 134 mmol/L (137-145)
[2023-01-20 21:59] LABS: Troponin I 0.016 ng/mL (0.01-0.034)
[2023-01-20] MEDS: ONDANSETRON 4 MG ODT PREPACK 1 BOTTLE MISC (22:22)
== END 2023-01-20 22:28 | disposition home or self-care (01) ==
PROVIDERS: Emergency Medicine; Emergency Provider Emergency Medicine; PCP Student in an Organized Health Care Education/Training Program
DX: T67.5XXA Heat exhaustion, unspecified, initial encounter (principal); R11.10 Vomiting, unspecified; R07.9 Chest pain, unspecified
CPT/HCPCS: 36415; 71045; 76705; 80053; 82550; 83690; 83735; 84484; 85025; 85610; 85730; 93005; 96361; 96374; 96375; 99284; C9113; J2060; J2405; J3475

== ENCOUNTER 2023-04-06 09:56 | Emergency (ER) | payer OTHER, MEDICAID, SELFPAY ==
[2020-11-22 01:02] VITALS: BMI 23.0
[2023-04-06] VITALS (107 sets, daily range): BP systolic 100–202; BP diastolic 58–116; PULSE 49–92; RESP 10–25; TEMP 37.6; O2SAT 93–99; BMI 22.3
--- NOTE | 2023-04-06 10:27 | DI.RAD.S_ITS ---
PROCEDURE: XR CHEST 1V INDICATIONS: chest pain TECHNIQUE: One view of the chest was acquired. COMPARISON: [facility], , XR CHEST 1V, 01/20/2023, 18:08. FINDINGS: Surgical changes and devices: Cholecystectomy clips. Lungs and pleura: Lungs are clear. No pleural effusions or pneumothorax. Mediastinum: Mediastinal contours appear normal. Heart size is normal. Bones and chest wall: No suspicious bony lesions. Age-appropriate bony degenerative changes are seen. Overlying soft tissues appear unremarkable. IMPRESSION: Portable chest within normal limits for age. Dictated by: Carmelo Dumont M.D. on 04/06/2023 at 9:47 Approved by: Carmelo Dumont M.D. on 04/06/2023 at 9:48
[2023-04-06] MEDS: ASPIRIN 81 MG CHEW TAB 324 MG PO (11:02)
[2023-04-06] MEDS: NITROGLYCERIN 0.4 MG SL TAB SL ×2 (11:03→12:21)
[2023-04-06 11:06] LABS: Add Manual Diff / Slide Review NO; Basophils Absolute Auto 0 /uL (0-100); Basophils Percent Auto 0.5 % (0-2); Eosinophils Absolute Auto 100 /uL (0-450); Eosinophils Percent Auto 0.8 % (2-4); Hematocrit 39.9 % (41-53); Hemoglobin 13.8 g/dL (13.5-17.5); Lymphocytes Absolute Auto 900 /uL (1100-4500); Lymphocytes Percent Auto 10.5 % (25-40); Mean Corpuscular HGB Conc 34.5 % (30-36); Mean Corpuscular Hemoglobin 34.7 PG (26-34); Mean Corpuscular Volume 100.5 fL (80-100); Monocytes Absolute Auto 1000 /uL (0-900); Monocytes Percent Auto 11.6 % (3-14); Neutrophils Absolute Auto 6800 /uL (1500-7000); Neutrophils Percent Auto 76.6 % (50-75); Platelet Count 211 X10^3/uL (150-400); Red Blood Cell Count 3.97 X10^6/uL (4.5-5.9); Red Cell Distribution Width 13.2 % (11.6-14.8); White Blood Cell Count 8.9 X10^3/uL (4.5-11.0)
--- NOTE | 2023-04-06 11:17 | PC.NURSE ---
Pt had chest pain yesterday accompanied with HTN and nausea. He had zofran he took at home yesterday which helped. This morning he woke up with chest pain and increased nausea, vomiting once today and once yesterday. Pt reports constant right chest pain at rest.
[2023-04-06 11:23] LABS: Prothrombin Time 10.9 SECONDS (10.1-12.7)
[2023-04-06 11:25] LABS: PTT Partial Thromboplastin Tim 27 SECONDS (26-36)
--- NOTE | 2023-04-06 11:26 | ED_ITS ---
HPI - Chest Pain General Chief Complaint: Chest Pain Stated Complaint: high BP, t-2, face feeling hot Time Seen by Provider: 04/06/23 10:57 Source: patient Mode of arrival: Ambulatory Limitations: no limitations History of Present Illness HPI narrative: 62-year-old gentleman with a history of hypertension and hyperlipidemia presents with 48 hours of chest pressure. He does note that it is exertional and does improve at rest. He is never had similar pain. It is not associated with dyspnea, orthopnea or diaphoresis. He has not had any recent nausea or vomiting. No recent upper respiratory infections. There is no family history of early cardiac disease Related Data Home Medications Medication Instructions Recorded Confirmed aspirin 81 mg capsule 81 mg PO DAILY 04/06/23 04/06/23 magnesium 250 mg tablet 250 mg PO DAILY 04/06/23 04/06/23 Previous Rx's Medication Instructions Recorded thiamine HCl (vitamin B1) 100 mg 100 mg PO DAILY #30 tabs 11/30/20 tablet (Vitamin B-1) metoprolol tartrate 50 mg tablet 50 mg PO BID #180 tabs 03/07/22 pantoprazole 40 mg tablet,delayed 40 mg PO DAILY #30 tabs 01/20/23 release (Protonix) atorvastatin 20 mg tablet 20 mg PO DAILY #90 tabs 01/21/23 Allergies Allergy/AdvReac Type Severity Reaction Status Date / Time fluconazole Allergy Severe SWEATING, Verified 04/06/23 10:26 SOB, NAUSEA diclofenac [DICLOFENAC] Allergy Intermediate RASH ON Verified 04/06/23 10:26 FACE; LIGHTHEADEDNESS Review of Systems Review of Systems Narrative: Pertinent positive and negative findings as per HPI 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 Essential hypertension (10/09/16) History of kidney disease as a child (10/09/16) Mixed hyperlipidemia Surgical History History of nephrectomy (1977) History of unilateral nephrectomy (10/09/16) Hx of appendectomy (1977) Hx of hernia repair (1999) Family History Father Congestive heart failure Diabetes mellitus COPD (chronic obstructive pulmonary disease) Mother Hypertension Diabetes mellitus Cancer Social History household members: spouse Smoking Status: Current every day smoker alcohol intake: current substance use type: marijuana Smoking Status: Current every day smoker tobacco type: cigarettes alcohol intake frequency: 3 or more drinks per day Alcohol type: beer Substance Use Type: marijuana Exam Initial Vital Signs Initial Vital Signs: Vital Signs Temperature 99.6 F 04/06/23 10:22 Pulse Rate 70 04/06/23 10:22 Respiratory Rate 14 04/06/23 10:22 Blood Pressure 202/116 H 04/06/23 10:22 Pulse Oximetry 99 04/06/23 10:22 Oxygen Delivery Method Room Air 04/06/23 10:22 General: Healthy appearing, in no acute distress. Able to give a complete and coherent history. Well-nourished well-developed HEENT: Moist mucous membranes, normal sclera with reactive pupils, Neck: No JVD, supple Respiratory: Lungs are clear to auscultation, no wheezing no rales no rhonchi. Full and symmetrical air movement Cardiac: Regular rate and rhythm no murmurs no bruits Abdomen: Soft, nontender, good bowel tones, no flank pain Skin: Warm and dry, no rashes Neurologic: Grossly neurologically intact with no obvious asymmetries or abnormalities Extremities: No trauma, well perfused Psych: Cooperative, appropriate insight and affect Course Orders Ordered: Discontinued Medications Acetaminophen (Acetaminophen 325 Mg Tablet) 650 mg PO NOW ONE Stop: 04/06/23 11:26 Last Admin: 04/06/23 11:35 Dose: Not Given Documented By: NELIA Aspirin (Aspirin 81 Mg Chew Tab) 324 mg PO NOW ONE Stop: 04/06/23 10:28 Last Admin: 04/06/23 11:02 Dose: 324 mg Documented By: NELIA Heparin Sodium (Porcine) (Heparin 5,000 Unit/Ml Vial) 4,000 unit IV NOW ONE Stop: 04/06/23 12:52 Last Admin: 04/06/23 13:12 Dose: 4,000 unit Documented By: NELIA Heparin Sodium/Dextrose (Heparin Drip) 25,000 unit in 500 mls @ 16.003 mls/hr IV CONT BIRDIE; Protocol Last Titration: 04/06/23 21:37 Dose: 12 units/kg/hr, 16.003 mls/hr Documented By: PAYAL Co-signed By: ELODIA Admin: 04/06/23 13:15 Dose: 12 units/kg/hr, 16.003 mls/hr Documented By: NELIA Co-signed By: PAYAL Nitroglycerin (Nitroglycerin) 50 mg in 250 mls @ 1.5 mls/hr IV TITRATE BIRDIE; Protocol Last Titration: 04/06/23 21:37 Dose: 20 mcg/min, 6 mls/hr Documented By: Titration: 04/06/23 14:44 Dose: 20 mcg/min, 6 mls/hr Documented By: Titration: 04/06/23 14:28 Dose: 10 mcg/min, 3 mls/hr Documented By: Admin: 04/06/23 14:18 Dose: 5 mcg/min, 1.5 mls/hr Documented By: NELIA Nitroglycerin (Nitroglycerin 0.4 Mg Sl Tab) 0.4 mg SL [id number] PRN PRN Reason: Chest Pain Last Admin: 04/06/23 12:21 Dose: 0.4 mg Documented By: Admin: 04/06/23 11:03 Dose: 0.4 mg Documented By: NELIA Nitroglycerin (Nitroglycerin Oint 1 Inch/Gm Oint...G.) 0.5 inch TOP NOW ONE Stop: 04/06/23 12:52 Last Admin: 04/06/23 13:13 Dose: 0.5 inch Documented By: NELIA Ondansetron HCl (Ondansetron 4 Mg/2 Ml Inj) 4 mg IV NOW ONE Stop: 04/06/23 16:02 Last Admin: 04/06/23 16:09 Dose: 4 mg Documented By: NELIA Vital Signs Vital signs: Vital Signs - 8 hr 04/06/23 10:22 04/06/23 10:35 04/06/23 10:45 Temperature 99.6 F Pulse Rate 70 62 60 Respiratory Rate 14 20 20 Blood Pressure 202/116 H Pulse Oximetry 99 97 95 Oxygen Delivery Method Room Air 04/06/23 11:00 04/06/23 11:00 04/06/23 11:03 Temperature Pulse Rate 57 L 61 Respiratory Rate 23 Blood Pressure 196/102 H 196/102 H Pulse Oximetry 95 Oxygen Delivery Method 04/06/23 11:06 04/06/23 11:06 04/06/23 11:11 Temperature Pulse Rate 70 50 L Respiratory Rate 20 15 Blood Pressure 183/103 H Pulse Oximetry 94 94 Oxygen Delivery Method Room Air 04/06/23 11:11 04/06/23 11:15 04/06/23 11:15 Temperature Pulse Rate 49 L Respiratory Rate 15 Blood Pressure 103/58 L 112/68 Pulse Oximetry 94 Oxygen Delivery Method Room Air 04/06/23 11:25 04/06/23 11:25 04/06/23 11:30 Temperature Pulse Rate 55 L 58 L Respiratory Rate 19 17 Blood Pressure 161/90 H Pulse Oximetry 95 95 Oxygen Delivery Method 04/06/23 11:30 04/06/23 11:35 04/06/23 11:35 Temperature Pulse Rate 54 L Respiratory Rate 19 Blood Pressure 173/94 H 166/99 H Pulse Oximetry 96 Oxygen Delivery Method 04/06/23 11:40 04/06/23 11:40 04/06/23 11:45 Temperature Pulse Rate 53 L 51 L Respiratory Rate 23 17 Blood Pressure 166/98 H Pulse Oximetry 95 96 Oxygen Delivery Method 04/06/23 11:45 04/06/23 11:50 04/06/23 11:50 Temperature Pulse Rate 52 L Respiratory Rate 20 Blood Pressure 176/99 H 173/101 H Pulse Oximetry 96 Oxygen Delivery Method 04/06/23 11:55 04/06/23 11:55 04/06/23 12:00 Temperature Pulse Rate 52 L 53 L Respiratory Rate 16 19 Blood Pressure 163/95 H Pulse Oximetry 96 97 Oxygen Delivery Method 04/06/23 12:00 04/06/23 12:05 04/06/23 12:06 Temperature Pulse Rate 58 L 56 L Respiratory Rate 19 17 Blood Pressure 164/101 H Pulse Oximetry 96 96 Oxygen Delivery Method 04/06/23 12:06 04/06/23 12:10 04/06/23 12:10 Temperature Pulse Rate 52 L Respiratory Rate 18 Blood Pressure 182/104 H 174/104 H Pulse Oximetry 96 Oxygen Delivery Method 04/06/23 12:15 04/06/23 12:15 04/06/23 12:20 Temperature Pulse Rate 53 L 55 L Respiratory Rate 17 21 Blood Pressure 169/98 H Pulse Oximetry 96 97 Oxygen Delivery Method Room Air 04/06/23 12:21 04/06/23 12:25 04/06/23 12:25 Temperature Pulse Rate 63 Respiratory Rate 19 Blood Pressure 169/98 H 131/85 Pulse Oximetry 94 Oxygen Delivery Method 04/06/23 12:30 04/06/23 12:30 04/06/23 12:35 Temperature Pulse Rate 59 L 62 Respiratory Rate 18 18 Blood Pressure 141/89 H Pulse Oximetry 95 97 Oxygen Delivery Method Room Air 04/06/23 12:35 04/06/23 12:40 04/06/23 12:40 Temperature Pulse Rate 54 L Respiratory Rate 17 Blood Pressure 142/91 H 165/93 H Pulse Oximetry 95 Oxygen Delivery Method 04/06/23 12:45 04/06/23 12:45 04/06/23 12:50 Temperature Pulse Rate 55 L 56 L Respiratory Rate 19 22 Blood Pressure 154/95 H Pulse Oximetry 96 95 Oxygen Delivery Method Room Air 04/06/23 12:50 04/06/23 12:55 04/06/23 12:55 Temperature Pulse Rate 52 L Respiratory Rate 17 Blood Pressure 160/90 H 162/87 H Pulse Oximetry 95 Oxygen Delivery Method 04/06/23 13:00 04/06/23 13:00 04/06/23 13:05 Temperature Pulse Rate 56 L 56 L Respiratory Rate 18 25 H Blood Pressure 159/93 H Pulse Oximetry 96 97 Oxygen Delivery Method 04/06/23 13:10 04/06/23 13:13 04/06/23 13:14 Temperature Pulse Rate 57 L 59 L 58 L Respiratory Rate 21 23 Blood Pressure 183/101 H Pulse Oximetry 98 97 Oxygen Delivery Method 04/06/23 13:14 04/06/23 13:15 04/06/23 13:15 Temperature Pulse Rate 54 L Respiratory Rate 22 Blood Pressure 183/101 H 164/95 H Pulse Oximetry 97 Oxygen Delivery Method 04/06/23 13:20 04/06/23 13:20 04/06/23 13:25 Temperature Pulse Rate 51 L 60 Respiratory Rate 21 19 Blood Pressure 169/96 H Pulse Oximetry 97 97 Oxygen Delivery Method 04/06/23 13:25 04/06/23 13:30 04/06/23 13:30 Temperature Pulse Rate 54 L Respiratory Rate 19 Blood Pressure 166/98 H 158/95 H Pulse Oximetry 97 Oxygen Delivery Method 04/06/23 13:35 04/06/23 13:40 04/06/23 13:45 Temperature Pulse Rate 54 L 55 L 52 L Respiratory Rate 20 20 19 Blood Pressure Pulse Oximetry 97 97 97 Oxygen Delivery Method 04/06/23 13:50 04/06/23 13:55 04/06/23 14:00 Temperature Pulse Rate 51 L 59 L 53 L Respiratory Rate 19 19 21 Blood Pressure Pulse Oximetry 96 97 97 Oxygen Delivery Method Room Air Room Air 04/06/23 14:00 04/06/23 14:05 04/06/23 14:10 Temperature Pulse Rate 54 L 57 L Respiratory Rate 17 18 Blood Pressure 175/103 H Pulse Oximetry 97 96 Oxygen Delivery Method Room Air 04/06/23 14:15 04/06/23 14:15 04/06/23 14:18 Temperature Pulse Rate 57 L 53 L Respiratory Rate 21 Blood Pressure 174/101 H 175/103 H Pulse Oximetry 96 Oxygen Delivery Method 04/06/23 14:24 04/06/23 14:25 04/06/23 14:27 Temperature Pulse Rate 66 61 Respiratory Rate 19 15 Blood Pressure 153/98 H Pulse Oximetry 95 95 Oxygen Delivery Method 04/06/23 14:27 04/06/23 14:30 04/06/23 14:30 Temperature Pulse Rate 56 L Respiratory Rate 17 Blood Pressure 154/98 H 146/89 H Pulse Oximetry 95 Oxygen Delivery Method 04/06/23 14:33 04/06/23 14:33 04/06/23 14:35 Temperature Pulse Rate 78 67 Respiratory Rate 13 18 Blood Pressure 138/92 H Pulse Oximetry 96 93 Oxygen Delivery Method 04/06/23 14:36 04/06/23 14:36 04/06/23 14:39 Temperature Pulse Rate 64 59 L Respiratory Rate 17 17 Blood Pressure 141/89 H Pulse Oximetry 94 94 Oxygen Delivery Method Room Air 04/06/23 14:39 04/06/23 14:40 04/06/23 14:42 Temperature Pulse Rate 57 L 58 L Respiratory Rate 17 17 Blood Pressure 147/95 H Pulse Oximetry 95 95 Oxygen Delivery Method 04/06/23 14:42 04/06/23 14:45 04/06/23 14:45 Temperature Pulse Rate 61 Respiratory Rate 17 Blood Pressure 146/93 H 141/92 H Pulse Oximetry 94 Oxygen Delivery Method 04/06/23 14:48 04/06/23 14:48 04/06/23 14:50 Temperature Pulse Rate 61 61 Respiratory Rate 16 18 Blood Pressure 142/90 H Pulse Oximetry 95 94 Oxygen Delivery Method 04/06/23 14:50 04/06/23 14:55 04/06/23 14:55 Temperature Pulse Rate 68 Respiratory Rate 21 Blood Pressure 134/88 128/77 Pulse Oximetry 94 Oxygen Delivery Method 04/06/23 15:00 04/06/23 15:00 04/06/23 15:05 Temperature Pulse Rate 60 57 L Respiratory Rate 19 17 Blood Pressure 124/75 Pulse Oximetry 94 94 Oxygen Delivery Method Room Air 04/06/23 15:05 04/06/23 15:10 04/06/23 15:10 Temperature Pulse Rate 59 L Respiratory Rate 15 Blood Pressure 122/74 130/79 Pulse Oximetry 94 Oxygen Delivery Method 04/06/23 15:15 04/06/23 15:15 04/06/23 15:20 Temperature Pulse Rate 60 61 Respiratory Rate 19 16 Blood Pressure 127/78 Pulse Oximetry 94 94 Oxygen Delivery Method 04/06/23 15:20 04/06/23 15:25 04/06/23 15:25 Temperature Pulse Rate 56 L Respiratory Rate 13 Blood Pressure 118/73 100/63 Pulse Oximetry 95 Oxygen Delivery Method 04/06/23 15:30 04/06/23 15:30 04/06/23 15:35 Temperature Pulse Rate 54 L Respiratory Rate 10 L Blood Pressure 108/68 118/72 Pulse Oximetry 95 Oxygen Delivery Method 04/06/23 15:35 04/06/23 15:40 04/06/23 15:40 Temperature Pulse Rate 52 L 55 L Respiratory Rate 15 16 Blood Pressure 124/77 Pulse Oximetry 94 95 Oxygen Delivery Method 04/06/23 15:45 04/06/23 15:45 04/06/23 15:50 Temperature Pulse Rate 57 L 67 Respiratory Rate 18 12 Blood Pressure 143/86 H Pulse Oximetry 95 98 Oxygen Delivery Method 04/06/23 15:50 04/06/23 15:55 04/06/23 15:55 Temperature Pulse Rate 58 L Respiratory Rate 18 Blood Pressure 148/91 H 138/81 Pulse Oximetry 97 Oxygen Delivery Method Room Air 04/06/23 16:00 04/06/23 16:00 04/06/23 16:05 Temperature Pulse Rate 92 H Respiratory Rate Blood Pressure 165/93 H 149/84 H Pulse Oximetry 97 Oxygen Delivery Method Room Air 04/06/23 16:05 04/06/23 16:10 04/06/23 16:10 Temperature Pulse Rate 61 59 L Respiratory Rate 19 17 Blood Pressure 143/77 H Pulse Oximetry 95 95 Oxygen Delivery Method 04/06/23 16:15 04/06/23 16:15 04/06/23 16:20 Temperature Pulse Rate 58 L 58 L Respiratory Rate 21 19 Blood Pressure 134/79 Pulse Oximetry 95 95 Oxygen Delivery Method Room Air 04/06/23 16:20 04/06/23 16:25 04/06/23 16:25 Temperature Pulse Rate 67 Respiratory Rate 23 Blood Pressure 141/86 H 140/89 Pulse Oximetry 96 Oxygen Delivery Method 04/06/23 16:30 04/06/23 16:30 04/06/23 16:35 Temperature Pulse Rate 63 72 Respiratory Rate 23 24 Blood Pressure 146/84 H Pulse Oximetry 95 96 Oxygen Delivery Method Room Air 04/06/23 16:35 Temperature Pulse Rate Respiratory Rate Blood Pressure 139/86 Pulse Oximetry Oxygen Delivery Method MDM - Chest Pain Lab Data 04/06/23 11:00 04/06/23 11:00 Labs: Lab Results 04/06/23 04/06/23 04/06/23 Range/Units 11:00 11:37 13:05 WBC 8.9 (4.5-11.0) X10^3/uL RBC 3.97 L (4.5-5.9) X10^6/uL Hgb 13.8 (13.5-17.5) g/dL Hct 39.9 L (41-53) % MCV 100.5 H (80-100) fL MCH 34.7 H (26-34) PG MCHC 34.5 (30-36) % RDW 13.2 (11.6-14.8) % Plt Count 211 (150-400) X10^3/uL Neut % (Auto) 76.6 H (50-75) % Lymph % (Auto) 10.5 L (25-40) % [place] % (Auto) 11.6 (3-14) % Eos % (Auto) 0.8 L (2-4) % Baso % (Auto) 0.5 (0-2) % Neut # (Auto) 6800 (9430-9293) /uL Lymph # (Auto) 900 L (5023-3903) /uL [place] # (Auto) 1000 H (0-900) /uL Eos # (Auto) 100 (0-450) /uL Baso # (Auto) 0 (0-100) /uL PT 10.9 (10.1-12.7) SECONDS INR 1.0 (0.9-1.3) APTT 27 (26-36) SECONDS Sodium 136 L (137-145) mmol/L Potassium 4.0 (3.4-5.1) mmol/L Chloride 99 (98-107) mmol/L Carbon Dioxide 30 (22-32) mmol/L BUN 10 (9-20) mg/dL Creatinine 0.60 L (0.66-1.25) mg/dL Estimated GFR > 60 (>60) mL/min BUN/Creatinine Ratio 16.7 (6-22) Glucose 133 H (80-110) mg/dL Calcium 10.3 H (8.4-10.2) mg/dL Magnesium 1.6 (1.6-2.3) mg/dL Total Bilirubin 0.4 (0.2-1.3) mg/dL AST 50 (17-59) IU/L ALT 40 (<50) IU/L Alkaline Phosphatase 61 (38-126) U/L Total Creatine Kinase 35 L (55-170) U/L Troponin I < 0.012 < 0.012 (0.01-0.034) ng/mL NT-Pro-B Natriuret Pep 399 H (<125) pg/mL Total Protein 7.6 (6.3-8.2) g/dL Albumin 4.2 (3.5-5.0) g/dL Globulin 3.4 (1.7-4.1) g/dL Albumin/Globulin Ratio 1.2 (1.0-2.8) Lipase 351 H (23-300) U/L SARS-CoV-2 (PCR) Negative (Negative) 04/06/23 Range/Units 19:30 WBC (4.5-11.0) X10^3/uL RBC (4.5-5.9) X10^6/uL Hgb (13.5-17.5) g/dL Hct (41-53) % MCV (80-100) fL MCH (26-34) PG MCHC (30-36) % RDW (11.6-14.8) % Plt Count (150-400) X10^3/uL Neut % (Auto) (50-75) % Lymph % (Auto) (25-40) % [place] % (Auto) (3-14) % Eos % (Auto) (2-4) % Baso % (Auto) (0-2) % Neut # (Auto) (6073-8596) /uL Lymph # (Auto) (7616-4088) /uL [place] # (Auto) (0-900) /uL Eos # (Auto) (0-450) /uL Baso # (Auto) (0-100) /uL PT (10.1-12.7) SECONDS INR (0.9-1.3) APTT 71 H D (26-36) SECONDS Sodium (137-145) mmol/L Potassium (3.4-5.1) mmol/L Chloride (98-107) mmol/L Carbon Dioxide (22-32) mmol/L BUN (9-20) mg/dL Creatinine (0.66-1.25) mg/dL Estimated GFR (>60) mL/min BUN/Creatinine Ratio (6-22) Glucose (80-110) mg/dL Calcium (8.4-10.2) mg/dL Magnesium (1.6-2.3) mg/dL Total Bilirubin (0.2-1.3) mg/dL AST (17-59) IU/L ALT (<50) IU/L Alkaline Phosphatase (38-126) U/L Total Creatine Kinase (55-170) U/L Troponin I (0.01-0.034) ng/mL NT-Pro-B Natriuret Pep (<125) pg/mL Total Protein (6.3-8.2) g/dL Albumin (3.5-5.0) g/dL Globulin (1.7-4.1) g/dL Albumin/Globulin Ratio (1.0-2.8) Lipase (23-300) U/L SARS-CoV-2 (PCR) (Negative) Point of Care Testing Glucose POC 114 MDM Narrative Medical decision making narrative: CC: 48 hours of exertional chest pain now progressing to unstable angina at rest Complicating co-morbidities: Hypertension, hyperlipidemia Data collected from: patient, daughter Medical records reviewed: Prior admissions for upper endoscopy and GI bleeding are reviewed Differential considered: Exertional angina, unstable angina, pulmonary infection Exam documented above, pertinent findings include: Benign exam Lab Test results independently reviewed as above. Pertinent findings: CBC is reassuring with minor chronic abnormalities with differential Chemistries show slightly elevated calcium Lipase slightly elevated at 351 1st and 2nd troponin at 2 hours are undetectable Independently reviewed EKG sinus rhythm at a rate of 58. Normal intervals, normal axis no ischemic changes Imaging studies independently reviewed: Unremarkable chest x-ray Consultations: Spoke with Dr Mack, transportation worker. Recommended transfer to [facility]. Heparin and nitro to get to pain relief. Will likely need heart catheterization Treatments: Aspirin, nitroglycerin sublingual, topical and IV. IV heparin Re-evaluations:145pm patient is re-evaluated. With heparin drip started and nitro paste in place he still has a mild sensation of heaviness. Will change to a nitro drip to get to pain-free. [facility] asked that we call back after 330 and they expect beds available at that time. Patient and his family are all updated on findings and anticipated transfer. 6pm [facility] does not have beds available. Contacted [facility]. They do have beds care is reviewed with Dr. Vincent, hospitalist who agrees to consult. Care is reviewed with the admitting hospitalist Service nurse practitioner Lin Zimmer. That is available and ALS transport is arranged. Discussion: 62-year-old gentleman with 48 hours of increasing exertional dyspnea now with dyspnea at rest. All is consistent with unstable angina, he is on heparin and nitroglycerin. Will need transfer in anticipation of cardiac consultation and possible heart catheterization Patient is on 15 mcg of nitroglycerin, heparin drip and is pain-free and stable at time of transfer to [facility] Critical Care Time Critical Care Time Critical Care Time: Yes Total Critical Care Time: 36 Attestation: Critical care time is separate from other billable procedures. There is a high probability of a significant, sudden or life-threatening deterioration that requires my full and direct attention, intervention and personal management. This critical care time includes consultation with family and other consulting doctors, review of records, and interpretation of data from labs, EKGs and imaging as well as managements of ongoing chest pain with IV nitrates and heparin Discharge Plan Departure Patient Disposition: [facility] Clinical Impression: Angina pectoris, unstable Prescriptions: No Action thiamine HCl (vitamin B1) [Vitamin B-1] 100 mg tablet 100 mg PO DAILY Qty: 30 3RF atorvastatin 20 mg tablet 20 mg PO DAILY Qty: 90 0RF Rx Instructions: APPT DUE WITH DR. BLUM OR PCP PRIOR TO END OF RX PRIOR TO FUTURE FILLS. PLEASE CALL TO SCHEDULE APPT. 01/21/23. metoprolol tartrate 50 mg tablet 50 mg PO BID Qty: 180 3RF Hold Instructions: alcohol withdrawal pantoprazole [Protonix] 40 mg tablet,delayed release (DR/EC) 40 mg PO DAILY Qty: 30 0RF magnesium 250 mg Tablet 250 mg PO DAILY aspirin 81 mg Capsule 81 mg PO DAILY Referrals: Elvin Payne MD [Primary Care Provider] -
[2023-04-06 11:33] LABS: Alanine Aminotransferase 40 IU/L (<50); Albumin 4.2 g/dL (3.5-5.0); Albumin Globulin Ratio 1.2 (1.0-2.8); Alkaline Phosphatase 61 U/L (38-126); Aspartate Aminotransferase 50 IU/L (17-59); BUN Creatinine Ratio 16.7 (6-22); Bilirubin Total 0.4 mg/dL (0.2-1.3); Blood Urea Nitrogen 10 mg/dL (9-20); Calcium 10.3 mg/dL (8.4-10.2); Carbon Dioxide 30 mmol/L (22-32); Chloride 99 mmol/L (98-107); Creatine Kinase 35 U/L (55-170); Estimated Glomerular Filt Rate > 60 mL/min (>60); Globulin 3.4 g/dL (1.7-4.1); Glucose 133 mg/dL (80-110); HEMOLYSIS 18 (0-50); Lipase 351 U/L (23-300); Magnesium 1.6 mg/dL (1.6-2.3); Sodium 136 mmol/L (137-145); Total Protein 7.6 g/dL (6.3-8.2)
[2023-04-06 11:45] LABS: Troponin I < 0.012 ng/mL (0.01-0.034)
[2023-04-06 11:58] LABS: COVID19 -Nasal RAPID Negative (Negative)
[2023-04-06 12:57] LABS: NT-proBNP (BNP-Adult 18+) 399 pg/mL (<125)
[2023-04-06] MEDS: HEPARIN 5,000 UNIT/ML VIAL 4000 UNIT IV (13:12)
[2023-04-06] MEDS: NITROGLYCERIN OINT 1 INCH/GM OINT...G. 0.5 INCH TOP (13:13)
[2023-04-06] MEDS: HEPARIN DRIP 25,000 UNIT/500 ML IV.SOLN 16.003 UNIT IV (13:15)
[2023-04-06 13:37] LABS: Troponin I < 0.012 ng/mL (0.01-0.034)
[2023-04-06] MEDS: NITROGLYCERIN 50 MG/250 ML INFUS..BTL IV (14:18)
--- NOTE | 2023-04-06 15:59 | PC.NURSE ---
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 nausea, restlessness, sweating, agitation. pt is asking for food. spoke with patient's nurse about this. then provider. order for CIWA and snacks given. Ativan to come if indicated by CIWA
[2023-04-06] MEDS: ONDANSETRON 4 MG/2 ML INJ IV (16:09)
--- NOTE | 2023-04-06 16:40 | PC.NURSE ---
Patient was feeling sweaty, nauseated and dry heaving, cloudy vision, anxious and agitated. Pt was ordered medication (see MAR) and once he wasnt nauseous we gave him crackers to snack on. Pt states he feels much better after having food in his stomach.
--- NOTE | 2023-04-06 19:11 | PC.NURSE ---
Pt states he has had a couple twinges of pain in his chest, similar to the aching feeling he was having before. He states its not constant and is brief. Pt currently denies chest pain.
[2023-04-06 19:49] LABS: PTT Partial Thromboplastin Tim 71 SECONDS (26-36)
== END 2023-04-06 21:33 | disposition short-term general hospital (02) ==
PROVIDERS: Emergency Provider Emergency Medicine; PCP Student in an Organized Health Care Education/Training Program
DX: I20.0 Unstable angina (principal); R07.9 Chest pain, unspecified; Z20.822 Contact with and (suspected) exposure to COVID-19
CPT/HCPCS: 36415; 71045; 80053; 82550; 82962; 83690; 83735; 83880; 84484; 85025; 85610; 85730; 87635; 93005; 96365; 96366; 96368; 96375; 99285; 99291; C9803; J1644; J2405

== ENCOUNTER → 2023-07-03 08:40 | Outpatient (CLI) | payer OTHER, MEDICAID, SELFPAY ==
[2020-11-22 01:02] VITALS: BMI 23.0
--- NOTE | 2023-07-03 08:42 | DI.RAD.S_ITS ---
PROCEDURE: XR CHEST 2V INDICATIONS: Treat and Evaluation TECHNIQUE: 2 views of the chest were acquired. COMPARISON: [facility], , XR CHEST 1V, 04/06/2023, 10:32. FINDINGS: Surgical changes and devices: Cholecystectomy clips. Lungs and pleura: Lungs are clear. No pleural effusions or pneumothorax. Mediastinum: Mediastinal contours are normal. Heart size is normal. Bones and chest wall: No suspicious bony abnormalities. Soft tissues appear unremarkable. Mild degenerative changes of the spine. IMPRESSION: No acute cardiopulmonary process. Dictated by: Sheba Garvin M.D. on 07/03/2023 at 16:59 Approved by: Sheba Garvin M.D. on 07/03/2023 at 17:00
[2023-07-03 09:39] LABS: Add Manual Diff / Slide Review NO; Basophils Absolute Auto 100 /uL (0-100); Basophils Percent Auto 0.8 % (0-2); Eosinophils Absolute Auto 200 /uL (0-450); Eosinophils Percent Auto 3.1 % (2-4); Hematocrit 42.6 % (41-53); Hemoglobin 14.5 g/dL (13.5-17.5); Lymphocytes Absolute Auto 1600 /uL (1100-4500); Lymphocytes Percent Auto 20.6 % (25-40); Mean Corpuscular Hemoglobin 34.7 PG (26-34); Mean Corpuscular Volume 101.9 fL (80-100); Monocytes Absolute Auto 1000 /uL (0-900); Monocytes Percent Auto 13.2 % (3-14); Neutrophils Absolute Auto 4700 /uL (1500-7000); Neutrophils Percent Auto 62.3 % (50-75); Platelet Count 314 X10^3/uL (150-400); Red Blood Cell Count 4.18 X10^6/uL (4.5-5.9); Red Cell Distribution Width 14.2 % (11.6-14.8); White Blood Cell Count 7.6 X10^3/uL (4.5-11.0)
[2023-07-03 09:56] LABS: Hemoglobin A1C% w Est Avg Glu 5.3 % (4.0-6.0)
[2023-07-03 10:01] LABS: Alanine Aminotransferase 82 IU/L (<50); Albumin 4.9 g/dL (3.5-5.0); Albumin Globulin Ratio 1.3 (1.0-2.8); Alkaline Phosphatase 67 U/L (38-126); BUN Creatinine Ratio 12.9 (6-22); Bilirubin Total 1.2 mg/dL (0.2-1.3); Blood Urea Nitrogen 9 mg/dL (9-20); Calcium 10.5 mg/dL (8.4-10.2); Carbon Dioxide 25 mmol/L (22-32); Chloride 99 mmol/L (98-107); Cholesterol 175 mg/dL (140-199); Estimated Glomerular Filt Rate > 60 mL/min (>60); Globulin 3.9 g/dL (1.7-4.1); Glucose 106 mg/dL (80-110); Sodium 135 mmol/L (137-145); Total Protein 8.8 g/dL (6.3-8.2); Triglycerides 71 mg/dL (35-150)
[2023-07-03 10:09] LABS: HDL Cholesterol 115 mg/dL (40-60); LDL Cholesterol Calculated 46 mg/dL (<100)
[2023-07-03 10:20] LABS: Vitamin D 25 Hydroxy (D3) 38.1 ng/mL (30.0-100.0)
[2023-07-03 10:23] LABS: Creatinine Urine Random 90.5 mg/dL
[2023-07-03 10:28] LABS: Microalbumi Creatinin Ratio Ur 7.7 ug/mg CR (<30); Microalbumin Urine Random 0.7 mg/dL (0-1.6)
[2023-07-04 20:12] LABS: HIV 1 & 2 Ab/Ag 4th Gen Combo NEGATIVE (NEGATIVE)
[2023-07-05 16:02] LABS: HEMOLYSIS < 15 (0-50)
[2023-07-05 16:03] LABS: Aspartate Aminotransferase 88 IU/L (17-59)
[2023-07-05 18:16] LABS: Hep C Virus Ab w/Reflex Quant NEGATIVE s/c (NEGATIVE)
== END ==
PROVIDERS: PCP Family Medicine; Referring Provider Family Medicine; Visit Provider Family Medicine
DX: R06.02 Shortness of breath (principal); R97.20 Elevated prostate specific antigen [PSA]; I10 Essential (primary) hypertension; E78.2 Mixed hyperlipidemia; E55.9 Vitamin D deficiency, unspecified; Z11.59 Encounter for screening for other viral diseases; Z00.00 Encounter for general adult medical examination without abnormal findings; Z11.4 Encounter for screening for human immunodeficiency virus [HIV]; Z13.1 Encounter for screening for diabetes mellitus
CPT/HCPCS: 36415; 71046; 80053; 80061; 82043; 82306; 82570; 83036; 85025; 86803; 87389

== ENCOUNTER → 2023-08-02 10:13 | Outpatient (CLI) | payer OTHER, MEDICAID, SELFPAY ==
[2020-11-22 01:02] VITALS: BMI 23.0
[2023-08-02 11:12] LABS: Hematocrit 38.3 % (41-53); Hemoglobin 13.2 g/dL (13.5-17.5); Mean Corpuscular HGB Conc 34.5 % (30-36); Mean Corpuscular Hemoglobin 34.1 PG (26-34); Mean Corpuscular Volume 98.9 fL (80-100); Platelet Count 367 X10^3/uL (150-400); Red Blood Cell Count 3.87 X10^6/uL (4.5-5.9); Red Cell Distribution Width 12.8 % (11.6-14.8); White Blood Cell Count 8.4 X10^3/uL (4.5-11.0)
[2023-08-02 11:18] LABS: Prothrombin Time 11.1 SECONDS (9.4-12.5); Reticulocyte Count, Percent 0.7 % (0.9-2.6)
[2023-08-02 11:25] LABS: BUN Creatinine Ratio 18.2 (6-22); Blood Urea Nitrogen 18 mg/dL (9-20); Calcium 9.4 mg/dL (8.4-10.2); Carbon Dioxide 26 mmol/L (22-32); Chloride 89 mmol/L (98-107); Estimated Glomerular Filt Rate > 60 mL/min (>60); Glucose 129 mg/dL (80-110); HEMOLYSIS < 15 (0-50); Sodium 124 mmol/L (137-145)
[2023-08-02 11:37] LABS: Hemoglobin A1C% w Est Avg Glu 5.5 % (4.0-6.0)
[2023-08-02 12:24] LABS: Folate 10.1 ng/mL (2.76-20.0); Vitamin B12 748 pg/mL (239-931)
[2023-08-02 14:22] LABS: Neutrophils Absolute Manual 5460 /uL (3000-5900); Total Cells Counted 100
[2023-08-02 14:23] LABS: RBC Morphology Normal Morphology
== END ==
LOC: LAB 10:14
PROVIDERS: PCP Family Medicine; Referring Provider Family Medicine; Visit Provider Family Medicine
DX: D75.89 Other specified diseases of blood and blood-forming organs (principal); R74.8 Abnormal levels of other serum enzymes; F10.20 Alcohol dependence, uncomplicated
CPT/HCPCS: 36415; 80048; 82607; 82746; 83036; 85025; 85045; 85610

== ENCOUNTER → 2023-08-19 09:34 | Outpatient (CLI) | payer OTHER, MEDICAID, SELFPAY ==
[2020-11-22 01:02] VITALS: BMI 23.0
[2023-08-19 11:35] LABS: Alanine Aminotransferase 25 IU/L (<50); Albumin 3.9 g/dL (3.5-5.0); Albumin Globulin Ratio 1.3 (1.0-2.8); Alkaline Phosphatase 60 U/L (38-126); Aspartate Aminotransferase 34 IU/L (17-59); BUN Creatinine Ratio 15.5 (6-22); Bilirubin Total 0.3 mg/dL (0.2-1.3); Blood Urea Nitrogen 15 mg/dL (9-20); Calcium 8.7 mg/dL (8.4-10.2); Carbon Dioxide 22 mmol/L (22-32); Chloride 105 mmol/L (98-107); Estimated Glomerular Filt Rate > 60 mL/min (>60); Globulin 2.9 g/dL (1.7-4.1); Glucose 84 mg/dL (80-110); HEMOLYSIS < 15 (0-50); Sodium 138 mmol/L (137-145); Total Protein 6.8 g/dL (6.3-8.2)
== END ==
PROVIDERS: PCP Family Medicine; Referring Provider Family Medicine; Visit Provider Family Medicine
DX: I10 Essential (primary) hypertension (principal); E78.2 Mixed hyperlipidemia; E87.1 Hypo-osmolality and hyponatremia
CPT/HCPCS: 36415; 80053

== ENCOUNTER → 2023-08-24 15:51 | Outpatient (CLI) | payer OTHER, MEDICAID, SELFPAY ==
[2020-11-22 01:02] VITALS: BMI 23.0
--- NOTE | 2023-08-24 | DI.MRI.S_ITS ---
PROCEDURE: MR ANKLE RT WO CON INDICATIONS: tarsel tunnel syndrome TECHNIQUE: Noncontrast sagittal T1 spin echo and T2 fast spin echo with fat saturation, axial proton density fast spin echo and T2 fast spin echo with fat saturation, coronal T1 spin echo and T2 fast spin echo with fat saturation through the ankle/hindfoot. COMPARISON: [facility], CR, XR FOOT RT MIN 3V, 12/08/2020, 13:49. FINDINGS: Image quality: Excellent. Bones and joints: No acute trabecular bone injury or fracture. No hindfoot coalitions. No osteochondral injuries of the talar dome. Mild degenerative spurring at the talonavicular and naviculocuneiform articulations. Medial structures: The deltoid ligament and the spring ligament complex are intact. Mild distal posterior tibialis tenosynovitis. The flexor digitorum longus and flexor hallucis longus tendons are intact. The posterior tibial neurovascular bundle appears normal within the tarsal tunnel, without extrinsic mass effect. Lateral structures: Remote prior sprains of the anterior talofibular, calcaneofibular, and posterior talofibular ligaments. The anterior and posterior tibiofibular ligaments are intact. The peroneus longus and brevis tendons demonstrate mild tendinosis. Ganglion cyst is seen within the sinus tarsi measuring up to 2.0 x 0.8 x 1.3 cm. Anterior structures: The tibialis anterior, extensor hallucis longus, and extensor digitorum longus tendons appear intact. Posterior and plantar structures: Mild Achilles tendinosis. The proximal plantar fascia is intact. No abductor digiti minimi muscle atrophy to suggest Meek neuropathy. IMPRESSION: 1. No mass or extrinsic compression is seen along the tarsal tunnel. 2. Mild distal posterior tibialis tenosynovitis. 3. Remote prior grade 1-2 sprains of the anterior and posterior talofibular ligaments and the calcaneofibular ligament. 4. Mild distal peroneus brevis and longus tendinosis. 5. Mild degenerative changes at the talonavicular and naviculocuneiform articulations. 6. Mild Achilles tendinosis. 7. Ganglion cyst is seen within the sinus tarsi measuring up to 2 cm in maximum dimension. Approved by: Vishnu Brand M.D. on 08/26/2023 at 14:01
== END ==
LOC: MRI 15:51
PROVIDERS: PCP Family Medicine; Referring Provider Podiatrist; Visit Provider Podiatrist
DX: S93.411A Sprain of calcaneofibular ligament of right ankle, initial encounter (principal); S93.491A Sprain of other ligament of right ankle, initial encounter; G57.51 Tarsal tunnel syndrome, right lower limb; M65.871 Other synovitis and tenosynovitis, right ankle and foot; M67.471 Ganglion, right ankle and foot
CPT/HCPCS: 73721

== ENCOUNTER 2023-12-07 09:53 | Emergency (ER) | payer OTHER, MEDICAID, SELFPAY ==
[2020-11-22 01:02] VITALS: BMI 23.0
[2023-12-07] MEDS: PHENobarbital 65 MG/ML VIAL 260 MG IV (10:57)
[2023-12-07] MEDS: SODIUM CHLORIDE 0.9% 1,000 ML 1000 ML IV (10:57)
[2023-12-07] MEDS: ONDANSETRON 4 MG/2 ML INJ IV (10:57)
[2023-12-07] MEDS: PHENobarbital 65 MG/ML VIAL 160 MG IV (13:18)
--- NOTE | 2023-12-07 18:20 | PC.NURSE ---
[facility] Downtime 12/06/23~1999 = see paper downtime documentation
[2023-12-07 19:11] LABS: Basophils Absolute Auto 0 /uL (0-100); Basophils Percent Auto 0.6 % (0-2); Eosinophils Absolute Auto 100 /uL (0-450); Eosinophils Percent Auto 0.8 % (2-4); Hematocrit 39.2 % (41-53); Hemoglobin 13.4 g/dL (13.5-17.5); Lymphocytes Absolute Auto 1500 /uL (1100-4500); Lymphocytes Percent Auto 21.8 % (25-40); Mean Corpuscular HGB Conc 34.1 % (30-36); Mean Corpuscular Hemoglobin 35.4 PG (26-34); Mean Corpuscular Volume 103.9 fL (80-100); Monocytes Absolute Auto 800 /uL (0-900); Monocytes Percent Auto 11.6 % (3-14); Neutrophils Absolute Auto 4400 /uL (1500-7000); Neutrophils Percent Auto 65.2 % (50-75); Platelet Count 260 X10^3/uL (150-400); Red Blood Cell Count 3.77 X10^6/uL (4.5-5.9); Red Cell Distribution Width 15.4 % (11.6-14.8); White Blood Cell Count 6.7 X10^3/uL (4.5-11.0)
[2023-12-07 19:12] LABS: INR 0.8 (0.9-1.3); PTT Partial Thromboplastin Tim 30 SECONDS (25.1-36.5); Prothrombin Time 9.6 SECONDS (9.4-12.5)
[2023-12-07 19:13] LABS: Alanine Aminotransferase 62 IU/L (<50); Albumin 4.4 g/dL (3.5-5.0); Albumin Globulin Ratio 1.4 (1.0-2.8); Alkaline Phosphatase 70 U/L (38-126); Aspartate Aminotransferase 99 IU/L (17-59); BUN Creatinine Ratio 17.3 (6-22); Bilirubin Total 0.6 mg/dL (0.2-1.3); Blood Urea Nitrogen 17 mg/dL (9-20); Calcium 8.8 mg/dL (8.4-10.2); Carbon Dioxide 25 mmol/L (22-32); Chloride 104 mmol/L (98-107); Creatine Kinase 72 U/L (55-170); Estimated Glomerular Filt Rate > 60 mL/min (>60); Ethanol (ETOH) 178 mg/dL; Globulin 3.1 g/dL (1.7-4.1); Glucose 110 mg/dL (80-110); HEMOLYSIS < 15 (0-50); Lipase 584 U/L (23-300); Potassium 4.2 mmol/L (3.4-5.1); Sodium 140 mmol/L (137-145); Total Protein 7.5 g/dL (6.3-8.2); Troponin I < 0.012 ng/mL (0.01-0.034)
[2023-12-07 19:14] LABS: Appearance Urine UA Clear; Bacteria Urine None Seen; Bilirubin Urine UA Negative (NEGATIVE); Color Urine UA Yellow; Glucose Urine UA NEGATIVE (Negative); Ketones Urine UA TRACE (NEGATIVE); Leukocyte Esterase Urine UA NEGATIVE (NEGATIVE); Nitrite Urine UA NEGATIVE (Negative); Occult Blood Urine UA TRACE-INTACT (Negative); Protein Urine UA TRACE (Negative); RBC Urine None Seen (0-5/HPF); Squamous Epithelial Cell Urine 0-1 /HPF (0-5/HPF); Urine Volume 10mL (spun); Urobilinogen Urine UA 0.2 E.U./dL (0.2); WBC Urine None Seen (0-5/HPF)
[2023-12-07 19:15] LABS: Culture Indicated Urine Cult Not Indicated; UR Morphine/Opiate cutoff 300 Negative (Negative); Ur Creatinine Normal (Normal); Ur Specific Gravity Normal (Normal); Urine Amphetamines Negative (Negative); Urine Barbiturates Negative (Negative); Urine Benzodiazepines Negative (Negative); Urine Cocaine Negative (Negative); Urine MDMA Negative (Negative); Urine Methadone Negative (Negative); Urine Methamphetamines Negative (Negative); Urine Oxycodone Negative (Negative); Urine Phencyclidine Negative (Negative); Urine Tetrahydrocannabinol Positive (Negative); Urine Tricyclic Antidepressant Negative (Negative); Urine pH Normal (Normal)
[2023-12-07 19:32] LABS: COVID19 -Nasal RAPID Negative (Negative)
[2023-12-08 08:27] LABS: Add Manual Diff / Slide Review SLIDE REVIEW; Macrocytosis 1+
== END 2023-12-07 15:10 | disposition home or self-care (01) ==
PROVIDERS: Emergency Provider Emergency Medicine; PCP Family Medicine
DX: F10.139 Alcohol abuse with withdrawal, unspecified (principal); R00.2 Palpitations; Y90.6 Blood alcohol level of 120-199 mg/100 ml
CPT/HCPCS: 80053; 80305; 80320; 81001; 82550; 83690; 84484; 85025; 85610; 85730; 87635; 93005; 93010; 96374; 96375; 96376; 99284; J2405; J2560

== ENCOUNTER 2024-02-23 14:36 | Emergency (ER) | payer OTHER, MEDICAID, SELFPAY ==
[2020-11-22 01:02] VITALS: BMI 23.0
[2024-02-23] VITALS (9 sets, daily range): BP systolic 133–152; BP diastolic 79–95; PULSE 89–116; RESP 16–21; TEMP 36.6; O2SAT 95–98; BMI 23.0
--- NOTE | 2024-02-23 14:43 | EKG_ITS ---
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
--- NOTE | 2024-02-23 14:48 | DI.RAD.S_ITS ---
PROCEDURE: XR CHEST 1V INDICATIONS: chest pain TECHNIQUE: One view of the chest was acquired. COMPARISON: [facility], CR, XR CHEST 2V, 07/03/2023, 8:56. [facility], CR, XR CHEST 1V, 04/06/2023, 10:32. FINDINGS: Surgical changes and devices: None. Lungs and pleura: Lungs are clear. No pleural effusions or pneumothorax. Mediastinum: Mediastinal contours appear normal. Heart size is normal. Bones and chest wall: No suspicious bony lesions. Overlying soft tissues appear unremarkable. IMPRESSION: No acute cardiopulmonary abnormality is seen. Dictated by: Edward Vickers M.D. on 02/23/2024 at 15:54 Approved by: Edward Vickers M.D. on 02/23/2024 at 15:54
[2024-02-23 14:54] LABS: Add Manual Diff / Slide Review NO; Basophils Absolute Auto 100 /uL (0-100); Eosinophils Absolute Auto 100 /uL (0-450); Hematocrit 40.9 % (41-53); Lymphocytes Absolute Auto 1800 /uL (1100-4500); Lymphocytes Percent Auto 33.9 % (25-40); Mean Corpuscular HGB Conc 34.1 % (30-36); Mean Corpuscular Hemoglobin 34.2 PG (26-34); Mean Corpuscular Volume 100.2 fL (80-100); Monocytes Absolute Auto 900 /uL (0-900); Monocytes Percent Auto 16.4 % (3-14); Neutrophils Absolute Auto 2500 /uL (1500-7000); Neutrophils Percent Auto 47.7 % (50-75); Platelet Count 157 X10^3/uL (150-400); Red Blood Cell Count 4.08 X10^6/uL (4.5-5.9); White Blood Cell Count 5.3 X10^3/uL (4.5-11.0)
[2024-02-23 14:56] LABS: INR 0.8 (0.9-1.3); Prothrombin Time 9.5 SECONDS (9.4-12.5)
[2024-02-23 14:58] LABS: PTT Partial Thromboplastin Tim 28 SECONDS (25.1-36.5)
[2024-02-23 15:00] LABS: Alanine Aminotransferase 159 IU/L (<50); Albumin 4.7 g/dL (3.5-5.0); Albumin Globulin Ratio 1.4 (1.0-2.8); Alkaline Phosphatase 79 U/L (38-126); Aspartate Aminotransferase 296 IU/L (17-59); BUN Creatinine Ratio 7.4 (6-22); Bilirubin Total 0.6 mg/dL (0.2-1.3); Blood Urea Nitrogen 7 mg/dL (9-20); Calcium 9.8 mg/dL (8.4-10.2); Carbon Dioxide 24 mmol/L (22-32); Chloride 98 mmol/L (98-107); Creatine Kinase 109 U/L (55-170); Estimated Glomerular Filt Rate > 60 mL/min (>60); Globulin 3.3 g/dL (1.7-4.1); Glucose 124 mg/dL (80-110); HEMOLYSIS < 15 (0-50); Lipase 499 U/L (23-300); Magnesium 1.8 mg/dL (1.6-2.3); Potassium 3.8 mmol/L (3.4-5.1); Sodium 136 mmol/L (137-145)
[2024-02-23 15:11] LABS: NT-proBNP (BNP-Adult 18+) 38 pg/mL (<125); Troponin I < 0.012 ng/mL (0.01-0.034)
--- NOTE | 2024-02-23 15:14 | ED.GENADULT ---
HPI - General Adult General Chief complaint: Syncope Stated complaint: Syncope Time Seen by Provider: 02/23/24 15:13 History of Present Illness HPI narrative: 63-year-old gentleman with a history of hypertension, hyperlipidemia, alcohol use disorder who was brought in by medics after a near syncopal visit at home. Apparently there have been sick contacts at home, he is tachycardic, notes that he has smoked some marijuana and has been drinking today which is close to his baseline. Medics reported diaphoresis and confusion which did seem to resolve. Related Data Home Medications Medication Instructions Recorded Confirmed aspirin 81 mg capsule 81 mg PO DAILY 04/06/23 08/21/23 magnesium 250 mg tablet 250 mg PO DAILY 04/06/23 08/21/23 ascorbic acid (vitamin C) 250 mg 250 mg PO DAILY 04/18/23 08/21/23 tablet Previous Rx's Medication Instructions Recorded thiamine HCl (vitamin B1) 100 mg 100 mg PO DAILY #30 tabs 11/30/20 tablet (Vitamin B-1) famotidine 20 mg tablet 20 mg PO BEDTIME #60 tabs 08/07/23 atorvastatin 40 mg tablet 40 mg PO DAILY #90 tabs 10/09/23 lisinopril 20 mg tablet 20 mg PO DAILY #30 tabs 11/19/23 Allergies Allergy/AdvReac Type Severity Reaction Status Date / Time fluconazole Allergy Severe SWEATING, Verified 08/21/23 10:33 SOB, NAUSEA diclofenac [DICLOFENAC] Allergy Intermediate RASH ON Verified 08/21/23 10:33 FACE; LIGHTHEADEDNESS Review of Systems Review of Systems Narrative: Pertinent positive and negative findings as per HPI Patient History Medical History (Updated 02/23/24 @ 17:42 by Constance Smith MD) Alcoholism in remission Acute upper GI bleed Mixed hyperlipidemia History of kidney disease as a child (10/09/16) 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) Essential hypertension (10/09/16) Surgical History Hx of appendectomy (1977) Hx of hernia repair (1999) History of nephrectomy (1977) History of unilateral nephrectomy (10/09/16) Family History Father Congestive heart failure Diabetes mellitus COPD (chronic obstructive pulmonary disease) Mother Hypertension Diabetes mellitus Cancer Social History household members: spouse Smoking Status: Current every day smoker alcohol intake: current substance use type: marijuana Smoking Status: Current every day smoker tobacco type: cigarettes alcohol intake frequency: 3 or more drinks per day Alcohol type: beer Substance Use Type: marijuana Exam Initial Vital Signs Initial Vital Signs: Vital Signs Pulse Rate 110 H 02/23/24 14:39 General: Chronically ill-appearing but in no acute distress. Able to give a complete and coherent history. HEENT: Moist mucous membranes, normal sclera with reactive pupils, Respiratory: Lungs are clear to auscultation, no wheezing no rales no rhonchi. Full and symmetrical air movement Cardiac: Tachycardic but otherwise Regular rate and rhythm no murmurs no bruits Abdomen: Soft, nontender, good bowel tones, no flank pain Skin: Warm and dry, no rashes Neurologic: Grossly neurologically intact with no obvious asymmetries or abnormalities Extremities: No trauma, Psych: Cooperative, fluent speech, appropriate thought pattern Course Orders Ordered: ED Orders 02/23/24 14:40 Complete Blood Count AUTO DIFF Stat Comprehensive Metabolic Panel Stat Lipase Stat Magnesium Stat NT-proBNP (BNP-Adult 18+) Stat PTT Partial Thromboplastin Jose Stat Prothrombin Time INR Stat Troponin & CK Cardiac Panel Stat 02/23/24 14:41 Covid-19 + FLU A/B + RSV - PCR Stat 02/23/24 14:48 XR chest 1V Stat EKG-12 Lead Stat 02/23/24 14:49 ETOH [Ethanol (ETOH)] Stat Discontinued Medications Sodium Chloride (Normal Saline 0.9%) 1,000 mls @ 1,000 mls/hr IV BOLUS ONE Stop: 02/23/24 16:40 Last Admin: 02/23/24 16:09 Dose: 1,000 mls/hr Documented By: RB Thiamine HCl 100 mg/ Sodium (Chloride) 101 mls @ 404 mls/hr IV NOW ONE Stop: 02/23/24 15:42 Last Infusion: 02/23/24 16:34 Dose: Infused Documented By: Admin: 02/23/24 16:09 Dose: 404 mls/hr Documented By: RB Ketorolac Tromethamine (Ketorolac 30 Mg/Ml Vial) 15 mg IV NOW ONE Stop: 02/23/24 15:42 Last Admin: 02/23/24 16:08 Dose: 15 mg Documented By: RB Lorazepam (Lorazepam 2 Mg/Ml Inj) 1 mg IV NOW ONE Stop: 02/23/24 15:42 Last Admin: 02/23/24 16:09 Dose: 1 mg Documented By: RB Vital Signs Vital signs: Vital Signs - 8 hr 02/23/24 14:39 02/23/24 14:40 02/23/24 14:40 Temperature Pulse Rate 110 H 116 H Respiratory Rate Blood Pressure 146/95 H Pulse Oximetry 98 Oxygen Delivery Method 02/23/24 14:41 Temperature 97.9 F Pulse Rate 115 H Respiratory Rate 20 Blood Pressure 146/95 H Pulse Oximetry 98 Oxygen Delivery Method Room Air Medical Decision Making Lab Data 02/23/24 14:40 02/23/24 14:40 Labs: Lab Results 02/23/24 02/23/24 02/23/24 Range/Units 14:40 14:41 14:49 WBC 5.3 (4.5-11.0) X10^3/uL RBC 4.08 L (4.5-5.9) X10^6/uL Hgb 14.0 (13.5-17.5) g/dL Hct 40.9 L (41-53) % MCV 100.2 H (80-100) fL MCH 34.2 H (26-34) PG MCHC 34.1 (30-36) % RDW 16.0 H (11.6-14.8) % Plt Count 157 (150-400) X10^3/uL Neut % (Auto) 47.7 L (50-75) % Lymph % (Auto) 33.9 (25-40) % [place] % (Auto) 16.4 H (3-14) % Eos % (Auto) 1.0 L (2-4) % Baso % (Auto) 1.0 (0-2) % Neut # (Auto) 2500 (6657-1154) /uL Lymph # (Auto) 1800 (5440-8669) /uL [place] # (Auto) 900 (0-900) /uL Eos # (Auto) 100 (0-450) /uL Baso # (Auto) 100 (0-100) /uL PT 9.5 (9.4-12.5) SECONDS INR 0.8 L (0.9-1.3) APTT 28 (25.1-36.5) SECONDS Sodium 136 L (137-145) mmol/L Potassium 3.8 (3.4-5.1) mmol/L Chloride 98 (98-107) mmol/L Carbon Dioxide 24 (22-32) mmol/L BUN 7 L (9-20) mg/dL Creatinine 0.94 (0.66-1.25) mg/dL Estimated GFR > 60 (>60) mL/min BUN/Creatinine Ratio 7.4 (6-22) Glucose 124 H (80-110) mg/dL Calcium 9.8 (8.4-10.2) mg/dL Magnesium 1.8 (1.6-2.3) mg/dL Total Bilirubin 0.6 (0.2-1.3) mg/dL AST 296 H (17-59) IU/L ALT 159 H (<50) IU/L Alkaline Phosphatase 79 (38-126) U/L Total Creatine Kinase 109 (55-170) U/L Troponin I < 0.012 (0.01-0.034) ng/mL NT-Pro-B Natriuret Pep 38 (<125) pg/mL Total Protein 8.0 (6.3-8.2) g/dL Albumin 4.7 (3.5-5.0) g/dL Globulin 3.3 (1.7-4.1) g/dL Albumin/Globulin Ratio 1.4 (1.0-2.8) Lipase 499 H (23-300) U/L Ethyl Alcohol 151 H ( - 10) mg/dL SARS-CoV-2 (PCR) Positive H (Negative) Influenza A (RT-PCR) Flu a negative (NEGATIVE) Influenza B (RT-PCR) Flu b negative (NEGATIVE) RSV (PCR) Negative (Negative) Point of Care Testing Glucose POC 109 Point of care testing: Point of Care Testing Glucose POC 109 MDM Narrative Medical decision making narrative: CC: General malaise, near-syncope Complicating co-morbidities: Alcohol use disorder, multiple family members with upper respiratory infections currently Data collected from: patient Medical records reviewed: Primary care notes from August are reviewed Differential considered: Viral syndrome, alcohol withdrawal, pancreatitis, GI bleeding, electrolyte abnormality Exam documented above, pertinent findings include: Patient is alert and appropriate Lab Test results independently reviewed as above. Pertinent findings: CBC is unremarkable, MCV slightly elevated consistent with his alcohol use Chemistries are reassuring, elevated AST and ALT compared to 2 months ago again consistent with an alcoholic hepatitis Troponin is undetectable Lipase appears to be chronically elevated, at 499 lower than it was 2 months ago at 584. Alcohol level is 151 Independently reviewed EKG: Sinus tachycardia at 112. Nonspecific STT wave changes without acute ischemia Imaging studies independently reviewed: Chest x-ray shows no significant abnormalities Specifically no infiltrates to suggest pneumonia Treatments: Fluids, Toradol, mg of Ativan parenterally, IV thiamine Re-evaluations: Patient is feeling significantly better Discussion: 63-year-old gentleman COVID positive as is likely the rest of his family. He is not hypoxic and not needing admission for his COVID at this time. He is past the window for Paxlovid. He was given fluids, thiamine and Ativan with concerns for acute alcohol withdrawal. He has not interested in alcohol detox at this point. At this time there is no indication for additional workup, advanced imaging or hospitalization. Patient is feeling better, understands diagnosis concerns and questions has been answered Discharge Plan Departure Patient Disposition: Home Clinical Impression: COVID Instructions: DI for COVID-19 (Suspected or Confirmed ) Activity Restrictions/Additional Instructions: Thank you for coming in today It turns out you do have COVID. I suspect that the rest of your family does as well. In the emergency department I did not find signs of heart attack, heart failure, pneumonia, significant hypoxia or reasons for hospitalization. You were given fluids, IV thiamine and mg of Ativan so that we can avoid any alcohol withdrawal symptoms At this time you do not need any other specific treatment for COVID. Time will help. The biggest complaint that I am hearing with this round of COVID is extreme Fatigue and significant headaches If you find that you are getting worse or develop any new symptoms, please feel free to return to the emergency department for further evaluation. Prescriptions: No Action ascorbic acid (vitamin C) 250 mg tablet 250 mg PO DAILY famotidine 20 mg tablet 20 mg PO BEDTIME Qty: 60 2RF thiamine HCl (vitamin B1) [Vitamin B-1] 100 mg tablet 100 mg PO DAILY Qty: 30 3RF atorvastatin 40 mg tablet 40 mg PO DAILY Qty: 90 1RF lisinopril 20 mg tablet 20 mg PO DAILY Qty: 30 5RF magnesium 250 mg Tablet 250 mg PO DAILY aspirin 81 mg Capsule 81 mg PO DAILY Referrals: Miguel Ángel Bruce MD [Primary Care Provider] - Stand Alone Forms: Patient Portal/API
[2024-02-23 15:30] LABS: Ethanol (ETOH) 151 mg/dL
[2024-02-23 15:39] LABS: Influenza A - CEPHEID Flu A NEGATIVE (NEGATIVE); Influenza B - CEPHEID Flu B NEGATIVE (NEGATIVE); Respiratory Syncytial Virus Negative (Negative)
[2024-02-23 15:41] LABS: COVID-19 CEPHEID 4-PLEX PCR POSITIVE (Negative)
[2024-02-23] MEDS: KETOROLAC 30 MG/ML VIAL 15 MG IV (16:08)
[2024-02-23] MEDS: LORazepam 2 MG/ML INJ 1 MG IV (16:09)
[2024-02-23] MEDS: THIAMINE 100 MG in SODIUM CHLORIDE 0.9% 100 ML 404 MG IV (16:09)
[2024-02-23] MEDS: SODIUM CHLORIDE 0.9% 1,000 ML 1000 ML IV (16:09)
== END 2024-02-23 17:59 | disposition home or self-care (01) ==
PROVIDERS: Emergency Provider Emergency Medicine; PCP Family Medicine
DX: U07.1 COVID-19 (principal); R00.0 Tachycardia, unspecified; Z79.899 Other long term (current) drug therapy
CPT/HCPCS: 0241U; 36415; 71045; 80053; 80320; 82550; 82962; 83690; 83735; 83880; 84484; 85025; 85610; 85730; 93005; 96361; 96365; 96375; 99284; J1885; J2060

== ENCOUNTER 2024-04-30 09:44 | Observation (INO) | payer OTHER, MEDICAID, SELFPAY ==
[2020-11-22 01:02] VITALS: BMI 23.0
[2024-04-30] VITALS (31 sets, daily range): BP systolic 134–187; BP diastolic 95–114; PULSE 119–138; RESP 12–28; TEMP 36.9–37.7; O2SAT 96–100; BMI 21.6; BMI 21.4
--- NOTE | 2024-04-30 10:03 | EKG_ITS ---
[facility] [id number] [place] [id number] Test Date: 2024-04-30 Pat Name: Donavan Lizama Department: Room: Gender: Male [employer] Specialist: AMA : 1960 Requested By: Order Number: [id number] Reading MD: Demetris Zimmer Measurements Intervals Connell Rate: 126 P: 49 NC: 146 QRS: 23 QRSD: 80 T: 105 QT: 300 QTc: 434 Interpretive Statements Sinus tachycardia Nonspecific ST and T wave abnormality Electronically Signed On 04-30-2024 17:08:59 PDT by Demetris Zimmer
--- NOTE | 2024-04-30 10:03 | DI.RAD.S_ITS ---
PROCEDURE: XR CHEST 1V INDICATIONS: Shortness of breath TECHNIQUE: One view of the chest was acquired. COMPARISON: [facility], , XR CHEST 1V, 02/23/2024, 14:51. [facility], CR, XR CHEST 2V, 07/03/2023, 8:56. FINDINGS: Surgical changes and devices: None. Lungs and pleura: Lungs are clear. No pleural effusions or pneumothorax. Mediastinum: Mediastinal contours appear normal. Heart size is normal. Bones and chest wall: No suspicious bony lesions. Overlying soft tissues appear unremarkable. IMPRESSION: No acute cardiopulmonary abnormality is seen. Dictated by: Edward Vickers M.D. on 04/30/2024 at 10:40 Approved by: Edward Vickers M.D. on 04/30/2024 at 10:40
[2024-04-30 10:09] LABS: Add Manual Diff / Slide Review NO; Basophils Absolute Auto 100 /uL (0-100); Eosinophils Absolute Auto 200 /uL (0-450); Eosinophils Percent Auto 2.8 % (2-4); Hemoglobin 15.3 g/dL (13.5-17.5); Lymphocytes Absolute Auto 2200 /uL (1100-4500); Lymphocytes Percent Auto 31.9 % (25-40); Mean Corpuscular HGB Conc 34.8 % (30-36); Mean Corpuscular Hemoglobin 35.4 PG (26-34); Mean Corpuscular Volume 101.7 fL (80-100); Monocytes Absolute Auto 900 /uL (0-900); Monocytes Percent Auto 12.9 % (3-14); Neutrophils Absolute Auto 3600 /uL (1500-7000); Neutrophils Percent Auto 51.4 % (50-75); Platelet Count 334 X10^3/uL (150-400); Red Blood Cell Count 4.33 X10^6/uL (4.5-5.9); Red Cell Distribution Width 14.8 % (11.6-14.8)
[2024-04-30 10:16] LABS: INR 0.8 (0.9-1.3); Prothrombin Time 9.7 SECONDS (9.4-12.5)
[2024-04-30] MEDS: ALBUTEROL/IPRATROPIUM 3 ML AMPUL INH (10:23)
[2024-04-30 10:26] LABS: Alanine Aminotransferase 100 IU/L (<50); Albumin 4.9 g/dL (3.5-5.0); Albumin Globulin Ratio 1.4 (1.0-2.8); Alkaline Phosphatase 83 U/L (38-126); Aspartate Aminotransferase 190 IU/L (17-59); Bilirubin Total 0.8 mg/dL (0.2-1.3); Blood Urea Nitrogen 7 mg/dL (9-20); Calcium 10.4 mg/dL (8.4-10.2); Carbon Dioxide 21 mmol/L (22-32); Chloride 100 mmol/L (98-107); Estimated Glomerular Filt Rate > 60 mL/min (>60); Globulin 3.6 g/dL (1.7-4.1); Glucose 119 mg/dL (80-110); HEMOLYSIS < 15 (0-50); Sodium 137 mmol/L (137-145); Total Protein 8.5 g/dL (6.3-8.2)
[2024-04-30 10:27] LABS: Ethanol (ETOH) 63 mg/dL; Lipase 299 U/L (23-300); Magnesium 1.4 mg/dL (1.6-2.3)
[2024-04-30 10:28] LABS: Lactate (Lactic Acid) 5.5 mmol/L (0.7-2.1)
[2024-04-30 10:29] LABS: D Dimer 15402 ng/ml (<500)
--- NOTE | 2024-04-30 10:29 | ED.GENADULT ---
HPI - General Adult General Chief complaint: Shortness of Breath/Dyspnea Stated complaint: can't breath, thinks he's passing out Time Seen by Provider: 04/30/24 09:50 Source: patient Mode of arrival: Ambulatory History of Present Illness HPI narrative: 63-year-old gentleman with a history of hypertension, continued tobacco use, hyperlipidemia, presents today complaining of significant dyspnea with increased work of breathing. He states that every morning he has had more difficulty with breathing but today was significant and not improving. Recently diagnosed with sleep apnea and does have a CPAP but has not been consistent in use. He and his both note that he has been having increasing apneic spells over the last couple of days. He does not describe fevers, cough, chest pain. No lower extremity edema. He does have a history of a solitary kidney after nephrectomy of the age of 17 Related Data Home Medications Medication Instructions Recorded Confirmed aspirin 81 mg capsule 81 mg PO DAILY 04/06/23 04/30/24 magnesium 250 mg tablet 250 mg PO DAILY 04/06/23 04/30/24 ascorbic acid (vitamin C) 250 mg 250 mg PO DAILY 04/18/23 04/30/24 tablet Previous Rx's Medication Instructions Recorded lisinopril 20 mg tablet 20 mg PO DAILY #30 tabs 11/19/23 famotidine 20 mg tablet 20 mg PO BEDTIME #90 tabs 04/01/24 nortriptyline 25 mg capsule 25 mg PO BEDTIME #30 caps 04/01/24 atorvastatin 40 mg tablet 40 mg PO DAILY #90 tabs 04/15/24 Allergies Allergy/AdvReac Type Severity Reaction Status Date / Time fluconazole Allergy Severe SWEATING, Verified 08/21/23 10:33 SOB, NAUSEA diclofenac [DICLOFENAC] Allergy Intermediate RASH ON Verified 08/21/23 10:33 FACE; LIGHTHEADEDNESS Review of Systems Review of Systems Narrative: Pertinent positive and negative findings as per HPI Patient History Medical History Alcoholism in remission Acute upper GI bleed Mixed hyperlipidemia History of kidney disease as a child (10/09/16) 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) Essential hypertension (10/09/16) Surgical History Hx of appendectomy (1977) Hx of hernia repair (1999) History of nephrectomy (1977) History of unilateral nephrectomy (10/09/16) Family History Father Congestive heart failure Diabetes mellitus COPD (chronic obstructive pulmonary disease) Mother Hypertension Diabetes mellitus Cancer Social History household members: spouse Smoking Status: Current every day smoker alcohol intake: current substance use type: marijuana Smoking Status: Current every day smoker tobacco type: cigarettes alcohol intake frequency: 3 or more drinks per day Alcohol type: beer Substance Use Type: marijuana Exam Initial Vital Signs Initial Vital Signs: Vital Signs Pulse Oximetry 97 04/30/24 09:49 General: Chronically ill-appearing, slightly pale, increased work of breathing, able to speak in complete sentences HEENT: Dry mucous membranes, normal sclera with reactive pupils, Neck: No JVD, supple Respiratory: Lungs minor scattered wheeze minor bibasilar crackles Cardiac: Significant tachycardia, no murmurs appreciated Abdomen: Soft, nontender, good bowel tones, no flank pain Skin: Pale, no diaphoresis Neurologic: Grossly neurologically intact with no obvious asymmetries or abnormalities Extremities: No trauma, complains of right foot drop after recent COVID infection Psych: Cooperative, appropriate insight and affect Course Orders Ordered: ED Orders 04/30/24 11:32 Urinalysis and Microscopic Stat 04/30/24 13:11 Trop I [Troponin I] Stat 04/30/24 13:25 Blood Culture Stat Acetaminophen (Acetaminophen 325 Mg Tablet) 650 mg PO Q6H PRN PRN Reason: Fever/Mild Pain (1-3) Chlordiazepoxide HCl (Chlordiazepoxide 10 Mg Capsule) 10 mg PO TID [facility] Last Admin: 04/30/24 15:07 Dose: Not Given Documented By: Admin: 04/30/24 15:07 Dose: 10 mg Documented By: ESV Folic Acid (Folic Acid 1 Mg Tablet) 1 mg PO DAILY [facility] Ceftriaxone Sodium 1,000 mg/ (Sodium Chloride) 100 mls @ 200 mls/hr IV Q24H BIRDIE Azithromycin 500 mg/ Dextrose 250 mls @ 250 mls/hr IV DAILY [facility] Lorazepam (Lorazepam 2 Mg/Ml Inj) 0 mg IV CIWAPRN PRN; Protocol PRN Reason: Alcohol Withdrawal Multivitamins (Multivitamin 1 Tablet) 1 tab PO DAILY [facility] Naloxone HCl (Naloxone 0.4 Mg/Ml Vial) 0.2 mg IV Q2MIN PRN PRN Reason: Opiate Reversal Thiamine HCl (Thiamine 100 Mg Tablet) 100 mg PO DAILY BIRDIE Stop: 05/04/24 09:01 Discontinued Medications Albuterol/Ipratropium (Albuterol/Ipratropium 3 Ml Ampul) 3 ml INH NOW ONE Stop: 04/30/24 10:03 Last Admin: 04/30/24 10:23 Dose: 3 ml Documented By: MONAE Sodium Chloride (Normal Saline 0.9%) 1,000 mls @ 1,000 mls/hr IV BOLUS ONE Stop: 04/30/24 11:36 Last Infusion: 04/30/24 12:07 Dose: Infused Documented By: Admin: 04/30/24 10:43 Dose: 1,000 mls/hr Documented By: AYANNA Sodium Chloride (Normal Saline 0.9%) 1,000 mls @ 1,000 mls/hr IV BOLUS ONE Stop: 04/30/24 14:01 Last Infusion: 04/30/24 13:44 Dose: 0 mls/hr Documented By: Infusion: 04/30/24 13:43 Dose: 0 mls/hr Documented By: Admin: 04/30/24 13:13 Dose: 1,000 mls/hr Documented By: AYANNA Ceftriaxone Sodium 2,000 mg/ (Sodium Chloride) 100 mls @ 200 mls/hr IV NOW ONE Stop: 04/30/24 13:03 Last Infusion: 04/30/24 13:43 Dose: Infused Documented By: Admin: 04/30/24 13:31 Dose: 200 mls/hr Documented By: MICKIE Azithromycin 500 mg/ Dextrose 250 mls @ 250 mls/hr IV NOW ONE Stop: 04/30/24 13:03 Last Infusion: 04/30/24 15:15 Dose: Infused Documented By: Admin: 04/30/24 14:09 Dose: 250 mls/hr Documented By: COREY Magnesium Sulfate (Magnesium Sulfate) 2 gm in 50 mls @ 25 mls/hr IV NOW ONE Stop: 04/30/24 17:17 Last Admin: 04/30/24 16:19 Dose: 25 mls/hr Documented By: JASEV Co-signed By: COREY Lisinopril (Lisinopril 20 Mg Tablet) 20 mg PO NOW ONE Stop: 04/30/24 12:54 Last Admin: 04/30/24 13:07 Dose: 20 mg Documented By: RB Vital Signs Vital signs: Vital Signs - 8 hr 04/30/24 11:50 04/30/24 11:50 04/30/24 12:00 Pulse Rate 128 H 128 H Respiratory Rate 19 14 Blood Pressure 187/108 H Pulse Oximetry 100 98 04/30/24 12:00 04/30/24 12:10 04/30/24 12:10 Pulse Rate 128 H Respiratory Rate 16 Blood Pressure 169/101 H 164/104 H Pulse Oximetry 99 04/30/24 12:20 04/30/24 12:20 04/30/24 12:30 Pulse Rate 130 H Respiratory Rate 17 Blood Pressure 161/107 H 165/110 H Pulse Oximetry 99 04/30/24 12:30 04/30/24 12:40 04/30/24 12:40 Pulse Rate 129 H 132 H Respiratory Rate 28 H 18 Blood Pressure 139/103 H Pulse Oximetry 100 99 04/30/24 12:50 04/30/24 12:50 04/30/24 13:00 Pulse Rate 129 H Respiratory Rate 26 H Blood Pressure 171/109 H 159/95 H Pulse Oximetry 99 04/30/24 13:00 04/30/24 13:07 Pulse Rate 128 H 128 H Respiratory Rate 24 Blood Pressure 159/95 H Pulse Oximetry 100 Medical Decision Making Lab Data 04/30/24 10:01 04/30/24 10:01 Labs: Lab Results 04/30/24 04/30/24 04/30/24 Range/Units 10:01 11:32 11:47 WBC 7.0 (4.5-11.0) X10^3/uL RBC 4.33 L (4.5-5.9) X10^6/uL Hgb 15.3 (13.5-17.5) g/dL Hct 44.0 (41-53) % MCV 101.7 H (80-100) fL MCH 35.4 H (26-34) PG MCHC 34.8 (30-36) % RDW 14.8 (11.6-14.8) % Plt Count 334 (150-400) X10^3/uL Neut % (Auto) 51.4 (50-75) % Lymph % (Auto) 31.9 (25-40) % Murray % (Auto) 12.9 (3-14) % Eos % (Auto) 2.8 (2-4) % Baso % (Auto) 1.0 (0-2) % Neut # (Auto) 3600 (4403-1672) /uL Lymph # (Auto) 2200 (1702-0701) /uL Murray # (Auto) 900 (0-900) /uL Eos # (Auto) 200 (0-450) /uL Baso # (Auto) 100 (0-100) /uL PT 9.7 (9.4-12.5) SECONDS INR 0.8 L (0.9-1.3) D-Dimer 02633 H (<500) ng/ml Sodium 137 (137-145) mmol/L Potassium 4.0 (3.4-5.1) mmol/L Chloride 100 (98-107) mmol/L Carbon Dioxide 21 L (22-32) mmol/L BUN 7 L (9-20) mg/dL Creatinine 0.88 (0.66-1.25) mg/dL Estimated GFR > 60 (>60) mL/min BUN/Creatinine Ratio 8.0 (6-22) Glucose 119 H (80-110) mg/dL Lactate 5.5 H* 3.9 H (0.7-2.1) mmol/L Calcium 10.4 H (8.4-10.2) mg/dL Magnesium 1.4 L (1.6-2.3) mg/dL Total Bilirubin 0.8 (0.2-1.3) mg/dL AST 190 H (17-59) IU/L ALT 100 H (<50) IU/L Alkaline Phosphatase 83 (38-126) U/L Troponin I < 0.012 (0.01-0.034) ng/mL NT-Pro-B Natriuret Pep < 20 (<125) pg/mL Total Protein 8.5 H (6.3-8.2) g/dL Albumin 4.9 (3.5-5.0) g/dL Globulin 3.6 (1.7-4.1) g/dL Albumin/Globulin Ratio 1.4 (1.0-2.8) Lipase 299 (23-300) U/L Procalcitonin 0.124 (<0.5) ng/mL Urine Color Yellow Urine Appearance Clear Urine pH 7.0 (4.5-8.0) Ur Specific [place] 1.010 (1.000-1.035) Urine Protein Negative (Negative) Urine Glucose (UA) Negative (Negative) g/dL Urine Ketones 1+ H (NEGATIVE) Urine Occult Blood Negative (Negative) Urine Nitrate Negative (Negative) Urine Bilirubin Negative (NEGATIVE) Urine Urobilinogen 0.2 (0.2) E.U./dL Ur Leukocyte Esterase Negative (NEGATIVE) Urine RBC None seen (0-5/HPF) Urine WBC None seen (0-5/HPF) Ur Squamous Epith Cells 0-1 /hpf (0-5/HPF) Urine Bacteria None seen (None) Ur Culture Indicated? Cult not indicated Vol Urine Centrifuged 10ml (spun) Ethyl Alcohol 63 H ( - 10) mg/dL Imaging Data CT scan - chest: Radiologist's Impression: PROCEDURE: CT ANGIO CHEST PE PROTOCOL INDICATIONS: Acute dyspnea, expect PE TECHNIQUE: After the administration of intravenous contrast, 2 mm thick sections acquired from the pulmonary apices to the posterior costophrenic angles. 3-dimensional maximum intensity projection (MIP) coronal and sagittal reformats were then acquired through the thorax. For radiation dose reduction, the following was used: automated exposure control, adjustment of mA and/or kV according to patient size. COMPARISON: None. FINDINGS: Image quality: Diagnostic. Pulmonary arteries: Pulmonary arteries are normal in size, and demonstrate no intraluminal filling defects to suggest central pulmonary embolism. Lower Neck: No enlarged lymph nodes. Thyroid: No thyroid nodules which require sonographic follow up, per consensus guidelines. Axillae: No enlarged lymph nodes. Chest Wall: Unremarkable. Bones: Unremarkable. Lungs and Pleura: No pneumothorax or pleural effusions. There are very subtle patchy ground-glass opacities present in the right upper lobe. For instance, reference image 119 of series 5 and image 123 of series 5. This may potentially represent very early developing pneumonia. Calcified pleural plaques suggest remote asbestos exposure. Heart: Heart size is normal. No pericardial effusion. Thoracic Vessels: No aortic aneurysm. Mediastinum and Christiane: No enlarged lymph nodes. Esophagus: No wall thickening. No hiatal hernia. Upper Abdomen: Visualized upper abdomen solid organs and bowel loops appear normal. IMPRESSION: 1. No acute pulmonary emboli. 2. Very subtle areas of patchy ground-glass opacity in the right upper lobe may potentially represent the earliest manifestations of developing pneumonia. 3. 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 Dictated by: Prasad Katz M.D. on 04/30/2024 at 12:12 MDM Narrative Medical decision making narrative: CC: Increased work of breathing for a week worse this morning Complicating co-morbidities: Returned to alcohol use, chronic tobacco abuse, hypertension hyperlipidemia, sleep apnea with recent CPAP started Data collected from: patient Medical records reviewed: Primary care notes from April 01 are reviewed. Discussion of the right foot pain, recurrent episodes of syncope, hypertension Differential considered: STEMI, PE, severe anemia, COPD exacerbation, pneumothorax, infection Exam documented above, pertinent findings include: Patient appears in moderate distress significant breathing difficulty with 100% saturation on room air, tachycardia. Minor right foot pain with minor swelling and no redness to dorsum of the foot Lab Test results independently reviewed as above. Pertinent findings: H&H shows no leukocytosis and no acute anemia Chemistries show normal renal function. Calcium slightly elevated chronically elevated AST and ALT at their baseline, lipase is not elevated Lactic acid at 5.5, coming down to 3.9 with fluid resuscitation. At this point I do not suspect infectious etiology Alcohol level 63 D-dimer is dramatically elevated Troponin is unremarkable BNP is reassuring Independently reviewed EKG: EKG shows sinus tachycardia with nonspecific STT wave changes Imaging studies independently reviewed: Chest x-ray shows hyperinflation without pneumothorax, no obvious infiltrates no cardiomegaly Treatments: Fluid, ceftriaxone, azithromycin, DuoNeb oral lisinopril Re-evaluations: Patient does smoke, he does not use inhalers as is never needed prednisone tapers. He is speaking in full sentences. Pulmonary exam is repeated and he is not wheezing currently. He remains significantly hypertensive and tachycardic. Saturations are 99% any is on 1 L of oxygen for comfort Discussion: 63-year-old gentleman with 5 days of progressive dyspnea. Workup does not suggest acute coronary syndrome, congestive heart failure, pulmonary embolism, significant anemia, dramatic electrolyte abnormality, minimal wheezing on on exam to suggest COPD exacerbation and COPD is not want of the diagnosis he currently carries, clinically he is euvolemic. Blood pressure remains elevated to not take his morning lisinopril and remains significantly tachycardic, sinus in the 130 range with no significant change after initial L of fluid. Patient clinically appears unwell. Second troponin is pending, with a CT scan suggesting possibly developing pneumonia, we will start ceftriaxone and azithromycin. Without any wheeze I do not think that steroids are indicated at this time. Discussed care with Dr. Zimmer hospitalist. We will choose to keep him in the hospital overnight with antibiotics continued hydration and cardiac stress test tomorrow to see if a better explanation for his acute tachypnea and sense of dyspnea in the absence of dramatic findings on lab work and imaging studies might be further elucidated. Patient is amenable to current plan Discharge Plan Departure Patient Disposition: Admitted as Observation Clinical Impression: Acute respiratory distress, Exertional dyspnea Admit Date/Time: 04/30/24 13:07 Admit Provider: Demetris Zimmer
[2024-04-30 10:36] LABS: NT-proBNP (BNP-Adult 18+) < 20 pg/mL (<125); Troponin I < 0.012 ng/mL (0.01-0.034)
--- NOTE | 2024-04-30 10:36 | DI.CT.S_ITS ---
PROCEDURE: CT ANGIO CHEST PE PROTOCOL INDICATIONS: Acute dyspnea, expect PE TECHNIQUE: After the administration of intravenous contrast, 2 mm thick sections acquired from the pulmonary apices to the posterior costophrenic angles. 3-dimensional maximum intensity projection (MIP) coronal and sagittal reformats were then acquired through the thorax. For radiation dose reduction, the following was used: automated exposure control, adjustment of mA and/or kV according to patient size. COMPARISON: None. FINDINGS: Image quality: Diagnostic. Pulmonary arteries: Pulmonary arteries are normal in size, and demonstrate no intraluminal filling defects to suggest central pulmonary embolism. Lower Neck: No enlarged lymph nodes. Thyroid: No thyroid nodules which require sonographic follow up, per consensus guidelines. Axillae: No enlarged lymph nodes. Chest Wall: Unremarkable. Bones: Unremarkable. Lungs and Pleura: No pneumothorax or pleural effusions. There are very subtle patchy ground-glass opacities present in the right upper lobe. For instance, reference image 119 of series 5 and image 123 of series 5. This may potentially represent very early developing pneumonia. Calcified pleural plaques suggest remote asbestos exposure. Heart: Heart size is normal. No pericardial effusion. Thoracic Vessels: No aortic aneurysm. Mediastinum and Christiane: No enlarged lymph nodes. Esophagus: No wall thickening. No hiatal hernia. Upper Abdomen: Visualized upper abdomen solid organs and bowel loops appear normal. IMPRESSION: 1. No acute pulmonary emboli. 2. Very subtle areas of patchy ground-glass opacity in the right upper lobe may potentially represent the earliest manifestations of developing pneumonia. 3. 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 Dictated by: Prasad Katz M.D. on 04/30/2024 at 12:12 Approved by: Prasad Katz M.D. on 04/30/2024 at 12:19
[2024-04-30 10:43] LABS: Procalcitonin 0.124 ng/mL (<0.5)
[2024-04-30] MEDS: SODIUM CHLORIDE 0.9% 1,000 ML 1000 ML IV ×2 (10:43→13:13)
[2024-04-30 11:41] LABS: Reflexed Lactate in 2 Hours Y
[2024-04-30 11:47] LABS: Appearance Urine UA CLEAR; Bilirubin Urine UA NEGATIVE (NEGATIVE); Color Urine UA YELLOW; Glucose Urine UA NEGATIVE (Negative); Ketones Urine UA 1+ (NEGATIVE); Leukocyte Esterase Urine UA NEGATIVE (NEGATIVE); Nitrite Urine UA NEGATIVE (Negative); Occult Blood Urine UA NEGATIVE (Negative); Protein Urine UA NEGATIVE (Negative); Urobilinogen Urine UA 0.2 E.U./dL (0.2)
[2024-04-30 12:04] LABS: Bacteria Urine None Seen; Culture Indicated Urine Cult Not Indicated; RBC Urine None Seen (0-5/HPF); Squamous Epithelial Cell Urine 0-1 /HPF (0-5/HPF); Urine Volume 10mL (spun); WBC Urine None Seen (0-5/HPF)
[2024-04-30 12:18] LABS: Lactate 2HR (Lactic Acid Rflx) 3.9 mmol/L (0.7-2.1)
[2024-04-30] MEDS: lisinopriL 20 MG TABLET PO (13:07)
[2024-04-30] MEDS: cefTRIAXone 2,000 MG in SODIUM CHLORIDE 0.9% 100 ML 200 MG IV (13:31)
[2024-04-30 13:46] LABS: Troponin I < 0.012 ng/mL (0.01-0.034)
[2024-04-30] MEDS: AZITHROMYCIN 500 MG in DEXTROSE 5% IN WATER 250 ML 250 MG IV (14:09)
--- NOTE | 2024-04-30 14:12 | P.HP_ITS ---
History of Present Illness History of Present Illness Date Patient Seen: 04/30/24 Time Patient Seen: 14:12 Chief complaint: can't breath, thinks he's passing out Narrative: The patient was a 63-year-old male with a history of tobacco use, hypertension, and hyperlipidemia, and alcohol use disorder who presents with an acute dyspnea on exertion. He states he awoke this morning and had difficulty breathing with any exertion and his heart has been racing. He thought he might have been reacting to a cat in the house and got rid of the cat this morning. He arrived in the ED where he had a negative chest x-ray, clear lungs, normal EKG, normal troponin, and normal CTA. He denies any leg edema, orthopnea. Had COVID back in January in his had a right foot drop since that time. He drinks alcohol on a daily basis and had a BAL of 63 in the ED around noon. He notes a history of shakes without alcohol but denies history of seizures. He also notes he has been eating very little for some time. He did have ketones in his urine. He also had a lactic acidosis. He did a COVID swab yesterday. He did not have a respiratory PCR in the ER but does note he was had some rhinorrhea, and a cough. No fevers, or chills. ED course: He was given a L fluid without much improvement in his resting tachycardia. He was not hypoxemic. He does have tachypnea. Liver transaminases are elevated and lactic acid is 5.5. Mg 1.4. Trop negative. He was history of chronic pancreatitis, but denies any abdominal pain. No nausea, or vomiting. No blood per rectum or melena. He lives in [place] with his . 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) Essential hypertension (10/09/16) Surgical History Hx of appendectomy (1977) Hx of hernia repair (1999) History of nephrectomy (1977) History of unilateral nephrectomy (10/09/16) Family History Father Congestive heart failure Diabetes mellitus COPD (chronic obstructive pulmonary disease) Mother Hypertension Diabetes mellitus Cancer Social History household members: spouse Smoking Status: Current every day smoker alcohol intake: current substance use type: marijuana Meds Home Medications and Allergies Home Medications Medication Instructions Recorded Confirmed Type aspirin 81 mg capsule 81 mg PO DAILY 04/06/23 04/30/24 History magnesium 250 mg tablet 250 mg PO DAILY 04/06/23 04/30/24 History ascorbic acid (vitamin C) 250 mg 250 mg PO DAILY 04/18/23 04/30/24 History tablet lisinopril 20 mg tablet 20 mg PO DAILY #30 tabs 11/19/23 04/30/24 Rx famotidine 20 mg tablet 20 mg PO BEDTIME #90 tabs 04/01/24 04/30/24 Rx nortriptyline 25 mg capsule 25 mg PO BEDTIME #30 caps 04/01/24 04/30/24 Rx atorvastatin 40 mg tablet 40 mg PO DAILY #90 tabs 04/15/24 04/30/24 Rx Allergies Allergy/AdvReac Type Severity Reaction Status Date / Time fluconazole Allergy Severe SWEATING, Verified 08/21/23 10:33 SOB, NAUSEA diclofenac [DICLOFENAC] Allergy Intermediate RASH ON Verified 08/21/23 10:33 FACE; LIGHTHEADEDNESS Review of Systems Review of Systems Narrative: All else reviewed and otherwise unremarkable except as noted in the history and physical. Exam Vital Signs (past 8 hours): - 04/30/24 09:49 04/30/24 09:50 04/30/24 09:50 Temperature Pulse Rate 138 H Respiratory Rate Blood Pressure 169/104 H Pulse Oximetry 97 100 Oxygen Delivery Method Oxygen Flow Rate 04/30/24 09:55 04/30/24 10:00 04/30/24 10:10 Temperature 98.4 F Pulse Rate 138 H 128 H 126 H Respiratory Rate 18 Blood Pressure 169/104 H Pulse Oximetry 100 100 99 Oxygen Delivery Method Room Air Oxygen Flow Rate 04/30/24 10:20 04/30/24 10:27 04/30/24 10:30 Temperature Pulse Rate 129 H 130 H Respiratory Rate 16 17 Blood Pressure Pulse Oximetry 100 100 100 Oxygen Delivery Method Nasal Cannula Oxygen Flow Rate 1 04/30/24 10:40 04/30/24 10:50 04/30/24 11:00 Temperature Pulse Rate 129 H 124 H 125 H Respiratory Rate 18 14 17 Blood Pressure Pulse Oximetry 99 97 97 Oxygen Delivery Method Oxygen Flow Rate 04/30/24 11:03 04/30/24 11:03 04/30/24 11:10 Temperature Pulse Rate 127 H Respiratory Rate 18 Blood Pressure 164/104 H 180/107 H Pulse Oximetry 97 Oxygen Delivery Method Oxygen Flow Rate 04/30/24 11:10 04/30/24 11:25 04/30/24 11:26 Temperature Pulse Rate 127 H 128 H Respiratory Rate 12 Blood Pressure 182/114 H Pulse Oximetry 99 96 Oxygen Delivery Method Oxygen Flow Rate 04/30/24 11:26 04/30/24 11:30 04/30/24 11:30 Temperature Pulse Rate 127 H 132 H Respiratory Rate 13 21 Blood Pressure 185/112 H Pulse Oximetry 100 100 Oxygen Delivery Method Oxygen Flow Rate 04/30/24 11:40 04/30/24 11:40 04/30/24 11:50 Temperature Pulse Rate 131 H 128 H Respiratory Rate 18 19 Blood Pressure 183/108 H Pulse Oximetry 100 100 Oxygen Delivery Method Oxygen Flow Rate 04/30/24 11:50 04/30/24 12:00 04/30/24 12:00 Temperature Pulse Rate 128 H Respiratory Rate 14 Blood Pressure 187/108 H 169/101 H Pulse Oximetry 98 Oxygen Delivery Method Oxygen Flow Rate 04/30/24 12:10 04/30/24 12:10 04/30/24 12:20 Temperature Pulse Rate 128 H Respiratory Rate 16 Blood Pressure 164/104 H 161/107 H Pulse Oximetry 99 Oxygen Delivery Method Oxygen Flow Rate 04/30/24 12:20 04/30/24 12:30 04/30/24 12:30 Temperature Pulse Rate 130 H 129 H Respiratory Rate 17 28 H Blood Pressure 165/110 H Pulse Oximetry 99 100 Oxygen Delivery Method Oxygen Flow Rate 04/30/24 12:40 04/30/24 12:40 04/30/24 12:50 Temperature Pulse Rate 132 H Respiratory Rate 18 Blood Pressure 139/103 H 171/109 H Pulse Oximetry 99 Oxygen Delivery Method Oxygen Flow Rate 04/30/24 12:50 04/30/24 13:00 04/30/24 13:00 Temperature Pulse Rate 129 H 128 H Respiratory Rate 26 H 24 Blood Pressure 159/95 H Pulse Oximetry 99 100 Oxygen Delivery Method Oxygen Flow Rate 04/30/24 13:07 04/30/24 13:10 04/30/24 13:10 Temperature Pulse Rate 128 H 127 H Respiratory Rate 16 Blood Pressure 159/95 H 168/101 H Pulse Oximetry 100 Oxygen Delivery Method Oxygen Flow Rate Oxygen Delivery Method Nasal Cannula Oxygen Flow Rate 1 Narrative Exam Narrative: NAD, alert and oriented, fluent speech, calm. Cachectic and somewhat chronically ill in appearance. Slightly tremulous. Normocephalic skull, EOMI, anicteric sclera, symmetric pupils. Oropharynx unremarkable, no droop. Neck supple, midline trachea, no adenopathy. Lungs clear, normal rate and effort. Heart regular, no murmur gallop or rub. Abdomen is soft, non distended and non tender. Extremities are free of edema. Skin is free of rash or lesions. Joints are not swollen or deformed. Judgment appears to be normal. Right foot drop, normal pulses in feet. He does have evidence of extremity wasting. Objective ECG Impression: Sinus tachycardia Nonspecific ST and T wave abnormality Imaging Multiple studies:: Radiologist's impression: CXR: No acute cardiopulmonary abnormality is seen. CTA: 1. No acute pulmonary emboli. 2. Very subtle areas of patchy ground-glass opacity in the right upper lobe may potentially represent the earliest manifestations of developing pneumonia. 3. 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 Labs 04/30/24 10:01 04/30/24 10:01 Labs: Laboratory Results - last 24 hr 04/30/24 04/30/24 04/30/24 10:01 11:32 11:47 WBC 7.0 RBC 4.33 L Hgb 15.3 Hct 44.0 MCV 101.7 H MCH 35.4 H MCHC 34.8 RDW 14.8 Plt Count 334 Neut % (Auto) 51.4 Lymph % (Auto) 31.9 [place] % (Auto) 12.9 Eos % (Auto) 2.8 Baso % (Auto) 1.0 Neut # (Auto) 3600 Lymph # (Auto) 2200 [place] # (Auto) 900 Eos # (Auto) 200 Baso # (Auto) 100 PT 9.7 INR 0.8 L D-Dimer 82577 H Sodium 137 Potassium 4.0 Chloride 100 Carbon Dioxide 21 L BUN 7 L Creatinine 0.88 Estimated GFR > 60 BUN/Creatinine Ratio 8.0 Glucose 119 H Lactate 5.5 H* 3.9 H Calcium 10.4 H Magnesium 1.4 L Total Bilirubin 0.8 AST 190 H ALT 100 H Alkaline Phosphatase 83 Troponin I < 0.012 NT-Pro-B Natriuret Pep < 20 Total Protein 8.5 H Albumin 4.9 Globulin 3.6 Albumin/Globulin Ratio 1.4 Lipase 299 Procalcitonin 0.124 Urine Color Yellow Urine Appearance Clear Urine pH 7.0 Ur Specific [place] 1.010 Urine Protein Negative Urine Glucose (UA) Negative Urine Ketones 1+ H Urine Occult Blood Negative Urine Nitrate Negative Urine Bilirubin Negative Urine Urobilinogen 0.2 Ur Leukocyte Esterase Negative Urine RBC None seen Urine WBC None seen Ur Squamous Epith Cells 0-1 /hpf Urine Bacteria None seen Ur Culture Indicated? Cult not indicated Vol Urine Centrifuged 10ml (spun) Ethyl Alcohol 63 H 04/30/24 13:11 WBC RBC Hgb Hct MCV MCH MCHC RDW Plt Count Neut % (Auto) Lymph % (Auto) [place] % (Auto) Eos % (Auto) Baso % (Auto) Neut # (Auto) Lymph # (Auto) [place] # (Auto) Eos # (Auto) Baso # (Auto) PT INR D-Dimer Sodium Potassium Chloride Carbon Dioxide BUN Creatinine Estimated GFR BUN/Creatinine Ratio Glucose Lactate Calcium Magnesium Total Bilirubin AST ALT Alkaline Phosphatase Troponin I < 0.012 NT-Pro-B Natriuret Pep Total Protein Albumin Globulin Albumin/Globulin Ratio Lipase Procalcitonin Urine Color Urine Appearance Urine pH Ur Specific [place] Urine Protein Urine Glucose (UA) Urine Ketones Urine Occult Blood Urine Nitrate Urine Bilirubin Urine Urobilinogen Ur Leukocyte Esterase Urine RBC Urine WBC Ur Squamous Epith Cells Urine Bacteria Ur Culture Indicated? Vol Urine Centrifuged Ethyl Alcohol Assessment & Plan Assessment & Plan narrative: 1. Dyspnea on exertion, present on admission and active. 2. Tachypnea with normal CT angio other than possible early pneumonia. Present on admission and active. 3. Possible pneumonia, present on admission and active. 4. Alcohol withdrawal likely, present on admission and active. 5. Starvation ketosis likely, present on admission and active. 6. Hypomagnesemia, present on admission and active. 7. Alcohol-induced hepatitis, present on admission and active. 8. Lactic acidosis likely secondary to liver dysfunction, present on admission and active. 9. Possible URI, present on admission and active. Plan: -fluid resuscitate, trend lactic acid. -CIWA protocol, Librium 10 t.i.d. start now. -replace magnesium -respiratory PCR -empiric antibiotics for possible early pneumonia -monitor heart rate with benzodiazepine administration and IV fluids Consider stress test if patient's symptoms do not resolve with the above measures. Observation status, anticipate 1 night stay. Full resuscitation is proxy TRINI: 05/01. Time-Based Coding :: 35 min spent with patient and on the chart (including review of chart, obtaining history, exam, reviewing outside data, placing orders, documenting exam and treatment plan, and counseling patient) on 04/30. Quality VTE Deep Vein Thrombosis/Pulmonary Embolism Present on Admission: No MIPS - Admit I confirm the patient?s Advance Care Plan is present, Code status is documented, Surrogate decision maker is in patient?s record [If Yes, STOP here]: Yes MIPS - Meds 'Current medications' to include all prescriptions, [id number] products, herbals, cannabis/cannabidiol products, and vitamin/mineral/dietary (nutritional) supplements. I have utilized all available resources to obtain, update, or review the patient?s current medications. [If Yes, STOP here]: Yes
[2024-04-30] MEDS: chlordiazePOXIDE 10 MG CAPSULE PO ×2 (15:07→21:21)
[2024-04-30] MEDS: MAGNESIUM SULFATE 2 GM/50 ML PIGGYBACK IV (16:19)
[2024-04-30 17:24] LABS: Lactate (Lactic Acid) 2.3 mmol/L (0.7-2.1)
[2024-04-30 18:44] LABS: Reflexed Lactate in 2 Hours Y
[2024-04-30 18:47] LABS: Adenovirus Not Detected (Not Detect); B. parapertussis Not Detected (Not Detecte); Bordetella pertussis Not Detected (Not Detect); Chlamydophila pneumoniae Not Detected (Not Detect); Coronavirus 229E Not Detected (Not Detect); Coronavirus HKU1 Not Detected (Not Detect); Coronavirus NL 63 Not Detected (Not Detect); Coronavirus OC43 Not Detected (Not Detect); Human Metapneumovirus Not Detected (Not Detect); Human Rhinovirus/Enterovirus Not Detected (Not Detect); Influenza A Not Detected (Not Detect); Influenza B Not Detected (Not Detect); Mycoplasma pneumoniae Not Detected (Not Detect); Parainfluenza Virus 1 Not Detected (Not Detect); Parainfluenza Virus 2 Not Detected (Not Detect); Parainfluenza Virus 3 Not Detected (Not Detect); Parainfluenza Virus 4 Not Detected (Not Detect); Respiratory Syncytial Virus Not Detected (Not Detect); SARS- CoV-2 Not Detected (Not Detecte)
[2024-04-30 20:54] LABS: Lactate 2HR (Lactic Acid Rflx) 1.4 mmol/L (0.7-2.1)
[2024-04-30] MEDS: ACETAMINOPHEN 325 MG TABLET 650 MG PO (21:23)
[2024-05-01] VITALS: BP 149/104; PULSE 108; RESP 20; TEMP 36.9; O2SAT 97
[2024-05-01 04:00] VITALS: BP 149/105; PULSE 96; RESP 20; TEMP 37.2; O2SAT 97
[2024-05-01 06:05] LABS: Add Manual Diff / Slide Review NO; Basophils Absolute Auto 100 /uL (0-100); Basophils Percent Auto 0.8 % (0-2); Eosinophils Absolute Auto 100 /uL (0-450); Hematocrit 37.8 % (41-53); Hemoglobin 12.9 g/dL (13.5-17.5); Lymphocytes Absolute Auto 1500 /uL (1100-4500); Lymphocytes Percent Auto 19.9 % (25-40); Mean Corpuscular HGB Conc 34.3 % (30-36); Mean Corpuscular Hemoglobin 34.9 PG (26-34); Mean Corpuscular Volume 101.8 fL (80-100); Monocytes Absolute Auto 1000 /uL (0-900); Monocytes Percent Auto 12.9 % (3-14); Neutrophils Absolute Auto 4700 /uL (1500-7000); Neutrophils Percent Auto 64.4 % (50-75); Platelet Count 239 X10^3/uL (150-400); Red Blood Cell Count 3.71 X10^6/uL (4.5-5.9); Red Cell Distribution Width 14.8 % (11.6-14.8); White Blood Cell Count 7.4 X10^3/uL (4.5-11.0)
[2024-05-01 06:33] LABS: BUN Creatinine Ratio 15.8 (6-22); Blood Urea Nitrogen 12 mg/dL (9-20); Calcium 9.6 mg/dL (8.4-10.2); Carbon Dioxide 24 mmol/L (22-32); Chloride 102 mmol/L (98-107); Estimated Glomerular Filt Rate > 60 mL/min (>60); Glucose 95 mg/dL (80-110); HEMOLYSIS < 15 (0-50); Potassium 3.9 mmol/L (3.4-5.1); Sodium 134 mmol/L (137-145)
[2024-05-01 06:36] LABS: Magnesium 1.6 mg/dL (1.6-2.3)
[2024-05-01] MEDS: ACETAMINOPHEN 325 MG TABLET 650 MG PO (07:35)
[2024-05-01 08:00] VITALS: BP 163/106; PULSE 100; RESP 18; TEMP 36.6; O2SAT 98
[2024-05-01] MEDS: chlordiazePOXIDE 10 MG CAPSULE PO (08:15)
[2024-05-01] MEDS: THIAMINE 100 MG TABLET PO (08:15)
[2024-05-01] MEDS: MULTIVITAMIN 1 TABLET 1 TAB PO (08:16)
--- NOTE | 2024-05-01 10:16 | PC.NURSE ---
Pt denies discomfort. Pt received D/C orders. SL discontinues intact. Home instructions given w/ understanding. Pt transportation here. Pt escorted by staff via W/C to waiting vehicle D/C in stable status.
--- NOTE | 2024-05-01 10:41 | CM.DANOTE ---
DCP Assessment Note: Pt is a 63yo male, resident of [place], is admitted for dyspnea. Pt lives in a house with spouse, Pam. Pt's Primary Care Provider is Dr. Miguel Ángel Bruce and insurance is [place], Medicaid. Reviewed chart and team rounds for pt's medical status and initial discharge needs. Pt discharged home before DCP could meet for assessment, no needs were identified per hospitalist. Plan: Discharged home with spouse to transport. MARILYN Ortiz Discharge Planning/Care Management CM Discharge Assessment Start: 05/01/24 10:39 Freq: Status: Active Protocol: Document 05/01/24 10:40 MW (Rec: 05/01/24 10:40 MW [id number]) Discharge Planning Assessment Assigned Product Marketer YENIFER Tobar DPOA/Assigned Designee Name Pam, Spouse Contact Information [phone] Advance Directives? No History Provided By Patient,Medical Record Prior Living Arrangements House Comment [place] Household Members spouse Independent with ADL's Yes Is patient alert and oriented? Yes Discharge Plan Home Review Status In Process Please Provide Date Initial DC 05/01/24 Assessment Was Performed
--- NOTE | 2024-05-01 13:00 | PM.DS.1 ---
History of Present Illness History of Present Illness Date Patient Seen: 05/01/24 Time Patient Seen: 07:40 Date of Onset of Symptoms: 04/30/24 Chief complaint: can't breath, thinks he's passing out Narrative: Narrative: The patient was a 63-year-old male with a history of tobacco use, hypertension, and hyperlipidemia, and alcohol use disorder who presents with an acute dyspnea on exertion. He states he awoke this morning and had difficulty breathing with any exertion and his heart has been racing. He thought he might have been reacting to a cat in the house and got rid of the cat this morning. He arrived in the ED where he had a negative chest x-ray, clear lungs, normal EKG, normal troponin, and normal CTA. He denies any leg edema, orthopnea. Had COVID back in January in his had a right foot drop since that time. He drinks alcohol on a daily basis and had a BAL of 63 in the ED around noon. He notes a history of shakes without alcohol but denies history of seizures. He also notes he has been eating very little for some time. He did have ketones in his urine. He also had a lactic acidosis. He did a COVID swab yesterday. He did not have a respiratory PCR in the ER but does note he was had some rhinorrhea, and a cough. No fevers, or chills. ED course: He was given a L fluid without much improvement in his resting tachycardia. He was not hypoxemic. He does have tachypnea. Liver transaminases are elevated and lactic acid is 5.5. Mg 1.4. Trop negative. He was history of chronic pancreatitis, but denies any abdominal pain. No nausea, or vomiting. No blood per rectum or melena. He lives in [place] with his . Discharge Providers Provider Date of admission: 04/30/24 13:07 Discharge Date: 05/01/24 Primary care physician: Miguel Ángel Bruce MD Discharge provider: Zohaib Ceja MD Summary Hospital Course Discharge Diagnosis: 1. Community-acquired pneumonia. 2. Dyspnea on exertion, likely due to 1. 3. Alcohol withdrawal. 4. Starvation ketosis. 5. Hypomagnesemia. 6. Alcohol-induced hepatitis,. 7. Lactic acidosis likely secondary to liver dysfunction. Hospital Course: The patient was admitted and placed on the CIWA protocol given evidence early alcohol withdrawal, and started on empiric antibiotics for possible early pneumonia. A respiratory panel showed no evident pathogens and he improved significantly over the 1st 24 hours with hydration and repletion of magnesium, with significant improvement and resolution of symptoms. He was interested in discharge home. No other issues arose. Outpatient antibiotics and Librium taper advise to long with complete alcohol cessation. The patient acknowledged understanding, agreement and appreciation of this plan of care. Status at Discharge Cognitive/behavioral status at discharge: oriented Functional status at discharge: independent ambulation Overall status at discharge: patient is progressing back to baseline Time Spent with Patient Time spent: Greater than 30 minutes Exam Vital Signs (past 8 hours): - 05/01/24 08:00 Temperature 97.8 F Pulse Rate 100 H Respiratory Rate 18 Blood Pressure 163/106 H Pulse Oximetry 98 Oxygen Delivery Method Room Air Oxygen Flow Rate 0 Narrative Exam Narrative: NAD, alert and oriented, fluent speech, calm. Cachectic and somewhat chronically ill in appearance. Normocephalic skull, EOMI, anicteric sclera, symmetric pupils. Oropharynx unremarkable, no droop. Neck supple, midline trachea, no adenopathy. Lungs clear, normal rate and effort. Heart regular, no murmur gallop or rub. Abdomen is soft, non distended and non tender. Extremities are free of edema. Skin is free of rash or lesions. Joints are not swollen or deformed. Judgment appears to be normal. Right foot drop, normal pulses in feet. He does have evidence of extremity wasting. Objective Imaging +: Radiologist's impression: 1. Chest x-ray 04/30/2024: No acute cardiopulmonary abnormality is seen. 2. Chest CT angiogram 04/30/2024: 1. No acute pulmonary emboli. 2. Very subtle areas of patchy ground-glass opacity in the right upper lobe may potentially represent the earliest manifestations of developing pneumonia. 3. 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 Labs 05/01/24 05:40 05/01/24 05:40 Labs: Laboratory Results - last 24 hr 04/30/24 04/30/24 04/30/24 13:11 17:01 17:47 WBC RBC Hgb Hct MCV MCH MCHC RDW Plt Count Neut % (Auto) Lymph % (Auto) [place] % (Auto) Eos % (Auto) Baso % (Auto) Neut # (Auto) Lymph # (Auto) [place] # (Auto) Eos # (Auto) Baso # (Auto) Sodium Potassium Chloride Carbon Dioxide BUN Creatinine Estimated GFR BUN/Creatinine Ratio Glucose Lactate 2.3 H Calcium Magnesium Troponin I < 0.012 Chlamy pneumoniae PCR Not detected Adenovirus (PCR) Not detected B. pertussis DNA (PCR) Not detected B.parapertussis DNA PCR Not detected Coronavirus OC43 (PCR) Not detected Coronavirus HKU1 (PCR) Not detected Coronavirus 229E (PCR) Not detected SARS-CoV-2 (PCR) Not detected Coronavirus NL63 (PCR) Not detected Human Metapneumovir PCR Not detected Influenza Type A (PCR) Not detected Influenza Type B (PCR) Not detected M. pneumoniae (PCR) Not detected Parainfluenza 1 (PCR) Not detected Parainfluenza 2 (PCR) Not detected Parainfluenza 3 (PCR) Not detected Parainfluenza 4 (PCR) Not detected RSV (PCR) Not detected Entero/Rhino (PCR) Not detected 04/30/24 05/01/24 20:20 05:40 WBC 7.4 RBC 3.71 L Hgb 12.9 L Hct 37.8 L MCV 101.8 H MCH 34.9 H MCHC 34.3 RDW 14.8 Plt Count 239 Neut % (Auto) 64.4 Lymph % (Auto) 19.9 L [place] % (Auto) 12.9 Eos % (Auto) 2.0 Baso % (Auto) 0.8 Neut # (Auto) 4700 Lymph # (Auto) 1500 [place] # (Auto) 1000 H Eos # (Auto) 100 Baso # (Auto) 100 Sodium 134 L Potassium 3.9 Chloride 102 Carbon Dioxide 24 BUN 12 Creatinine 0.76 Estimated GFR > 60 BUN/Creatinine Ratio 15.8 Glucose 95 Lactate 1.4 Calcium 9.6 Magnesium 1.6 Troponin I Chlamy pneumoniae PCR Adenovirus (PCR) B. pertussis DNA (PCR) B.parapertussis DNA PCR Coronavirus OC43 (PCR) Coronavirus HKU1 (PCR) Coronavirus 229E (PCR) SARS-CoV-2 (PCR) Coronavirus NL63 (PCR) Human Metapneumovir PCR Influenza Type A (PCR) Influenza Type B (PCR) M. 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) Essential hypertension (10/09/16) Surgical History Hx of appendectomy (1977) Hx of hernia repair (1999) History of nephrectomy (1977) History of unilateral nephrectomy (10/09/16) Family History Father Congestive heart failure Diabetes mellitus COPD (chronic obstructive pulmonary disease) Mother Hypertension Diabetes mellitus Cancer Social History household members: spouse Smoking Status: Current every day smoker alcohol intake: current substance use type: marijuana Discharge Plan Discharge Plan Patient Disposition: Home Discharge orders & Medications Prescriptions: New chlordiazepoxide HCl 10 mg Capsule 10 mg PO TID Qty: 20 0RF cefuroxime axetil 500 mg tablet 500 mg PO BID Qty: 12 0RF azithromycin 250 mg tablet 250 mg PO DAILY Qty: 4 0RF Continued ascorbic acid (vitamin C) 250 mg tablet 250 mg PO DAILY nortriptyline 25 mg capsule 25 mg PO BEDTIME Qty: 30 1RF famotidine 20 mg tablet 20 mg PO BEDTIME Qty: 90 2RF lisinopril 20 mg tablet 20 mg PO DAILY Qty: 30 5RF atorvastatin 40 mg tablet 40 mg PO DAILY Qty: 90 0RF magnesium 250 mg Tablet 250 mg PO DAILY aspirin 81 mg Capsule 81 mg PO DAILY Follow up/Referrals: Miguel Ángel Bruce MD [Primary Care Provider] - (*Appt on May 13, 2024 with at 10 am. check-in time at 09:45 am [phone]) Visit Report/Discharge Packet Stand Alone Forms: Patient Portal/API Discharge Data Primary Care Provider: Miguel Ángel Bruce Attending Provider: Demetris Zimmer Admit Date/Time: 04/30/24 13:07 Quality VTE Deep Vein Thrombosis/Pulmonary Embolism Present on Admission: No MIPS - Admit I confirm the patient?s Advance Care Plan is present, Code status is documented, Surrogate decision maker is in patient?s record [If Yes, STOP here]: Yes MIPS - Meds 'Current medications' to include all prescriptions, [id number] products, herbals, cannabis/cannabidiol products, and vitamin/mineral/dietary (nutritional) supplements. I have utilized all available resources to obtain, update, or review the patient?s current medications. [If Yes, STOP here]: Yes MIPS - DC The patient has a history of heart transplant or Left Ventricular Assist Device (LVAD). If yes, STOP here.: No The patient has current or prior documentation of left ventricular ejection fraction (LVEF) less than or equal to 40%, or moderate or severely depressed left ventricular systolic function.: No A. The patient was prescribed or already taking an Angiotensin-Converting Enzyme (EDUIN) Inhibitor, or Angiotensin Receptor [place] (ARB).: No B. The patient was prescribed or already taking a beta-eulalia. [If Yes to Both A & B, STOP here]: No Patient not prescribed/taking EDUIN or ARB, no reason given.: No Patient not prescribed/taking beta-eulalia, no reason given.: No PROFEE Charge Codes Discharge inpatient/observation: [id number]
--- NOTE | 2024-05-06 16:23 | PC.NURSE ---
late note: 04/30/24 approx 1830 mag rider completed.
== END 2024-05-01 10:15 | disposition home or self-care (01) ==
LOC: ED 10:02 → AC 13:08
PROVIDERS: Admitting Provider Hospitalist; Emergency Provider Emergency Medicine; PCP Family Medicine; Referring Provider Emergency Medicine; Visit Provider Hospitalist
DX: F10.239 Alcohol dependence with withdrawal, unspecified (principal); Y90.3 Blood alcohol level of 60-79 mg/100 ml; R06.82 Tachypnea, not elsewhere classified; R00.0 Tachycardia, unspecified; E88.89 Other specified metabolic disorders; T73.0XXA Starvation, initial encounter; K70.10 Alcoholic hepatitis without ascites; E87.20 Acidosis, unspecified; E83.42 Hypomagnesemia; I10 Essential (primary) hypertension; E78.5 Hyperlipidemia, unspecified; F17.210 Nicotine dependence, cigarettes, uncomplicated; Z11.52 Encounter for screening for COVID-19
CPT/HCPCS: 36415; 71045; 71275; 80048; 80053; 80320; 81001; 83605; 83690; 83735; 83880; 84145; 84484; 85025; 85379; 85610; 87040; 87633; 93005; 94640; 96361; 96365; 96366; 96367; 96375; 99284; 99285; G0378; J0696; J3475; Q9967

== ENCOUNTER 2024-05-11 14:33 | Emergency (ER) | payer OTHER, MEDICAID, SELFPAY ==
[2024-04-30 13:54] VITALS: BMI 21.4
[2024-05-11] VITALS (10 sets, daily range): BP systolic 123–158; BP diastolic 72–95; PULSE 116–129; RESP 14–19; TEMP 37.4; O2SAT 92–99; BMI 23.0
--- NOTE | 2024-05-11 14:44 | DI.RAD.S_ITS ---
PROCEDURE: XR CHEST 1V INDICATIONS: Shortness of breath TECHNIQUE: One view of the chest was acquired. COMPARISON: [facility], CR, XR CHEST 1V, 04/30/2024, 10:10. [facility], CR, XR CHEST 1V, 02/23/2024, 14:51. FINDINGS: Surgical changes and devices: None. Lungs and pleura: Lungs are clear. No pleural effusions or pneumothorax. Mediastinum: Mediastinal contours appear normal. Heart size is normal. Bones and chest wall: No suspicious bony lesions. Overlying soft tissues appear unremarkable. IMPRESSION: No acute cardiopulmonary abnormality is seen. Dictated by: Juliocesar Rae M.D. on 05/11/2024 at 15:38 Approved by: Juliocesar Rae M.D. on 05/11/2024 at 15:38
--- NOTE | 2024-05-11 14:56 | EKG_ITS ---
[address] [address] [address], [place] [address] Test Date: 2024-05-11 Pat Name: Donavan Lizama Department: [facility] Room: Gender: Male Strickler Attendant: SAMMY : 1960 Requested By: Order Number: [id number] Reading MD: Jsoue Ramon MD Measurements Intervals [place] Rate: 121 P: 48 NC: 178 QRS: 21 QRSD: 86 T: 76 QT: 288 QTc: 408 Interpretive Statements Sinus tachycardia Nonspecific T wave abnormality Electronically Signed On 05-12-2024 7:20:21 PST by Josue Ramon MD
[2024-05-11] MEDS: ALBUTEROL/IPRATROPIUM 3 ML AMPUL INH (15:03)
[2024-05-11 15:06] LABS: Hematocrit 44.2 % (41-53); Hemoglobin 15.1 g/dL (13.5-17.5); Mean Corpuscular HGB Conc 34.2 % (30-36); Mean Corpuscular Hemoglobin 35.1 PG (26-34); Mean Corpuscular Volume 102.5 fL (80-100); Platelet Count 441 X10^3/uL (150-400); Red Blood Cell Count 4.31 X10^6/uL (4.5-5.9); Red Cell Distribution Width 14.2 % (11.6-14.8); White Blood Cell Count 9.2 X10^3/uL (4.5-11.0)
[2024-05-11 15:07] LABS: Add Manual Diff / Slide Review YES
[2024-05-11 15:16] LABS: INR 0.9 (0.9-1.3); Prothrombin Time 9.8 SECONDS (9.4-12.5)
[2024-05-11 15:24] LABS: Lactate (Lactic Acid) 3.5 mmol/L (0.7-2.1)
[2024-05-11 15:25] LABS: Alanine Aminotransferase 57 IU/L (<50); Albumin 4.5 g/dL (3.5-5.0); Albumin Globulin Ratio 1.3 (1.0-2.8); Alkaline Phosphatase 72 U/L (38-126); Aspartate Aminotransferase 86 IU/L (17-59); BUN Creatinine Ratio 14.3 (6-22); Bilirubin Total 0.5 mg/dL (0.2-1.3); Blood Urea Nitrogen 12 mg/dL (9-20); Calcium 10.2 mg/dL (8.4-10.2); Carbon Dioxide 21 mmol/L (22-32); Chloride 101 mmol/L (98-107); Estimated Glomerular Filt Rate > 60 mL/min (>60); Globulin 3.6 g/dL (1.7-4.1); Glucose 120 mg/dL (80-110); HEMOLYSIS < 15 (0-50); Potassium 4.4 mmol/L (3.4-5.1); Sodium 135 mmol/L (137-145); Total Protein 8.1 g/dL (6.3-8.2)
--- NOTE | 2024-05-11 15:30 | ED_ITS ---
HPI - General Adult General Chief complaint: Shortness of Breath/Dyspnea Stated complaint: Having a hard time breathing Time Seen by Provider: 05/11/24 14:57 History of Present Illness HPI narrative: 63-year-old gentleman with a history of alcohol use disorder, hypertension, hyperlipidemia, tobacco use, COPD. Recent admission for community-acquired pneumonia with secondary dyspnea on exertion, starvation ketosis, alcohol- induced hepatitis and lactic acidosis felt to be secondary to his overall liver dysfunction. Patient was subsequently discharged home with cefuroxime azithromycin and Librium 10 mg 20 tablets. He states that he was using his CPAP and woke up in the middle of the night gasping for breath. She was similar to the reason he was initially admitted. You comes in for further evaluation Related Data Home Medications Medication Instructions Recorded Confirmed aspirin 81 mg capsule 81 mg PO DAILY 04/06/23 04/30/24 ascorbic acid (vitamin C) 250 mg 250 mg PO DAILY 04/18/23 04/30/24 tablet magnesium 250 mg tablet 400 mg PO DAILY 05/04/24 05/04/24 Previous Rx's Medication Instructions Recorded lisinopril 20 mg tablet 20 mg PO DAILY #30 tabs 11/19/23 famotidine 20 mg tablet 20 mg PO BEDTIME #90 tabs 04/01/24 nortriptyline 25 mg capsule 25 mg PO BEDTIME #30 caps 04/01/24 atorvastatin 40 mg tablet 40 mg PO DAILY #90 tabs 04/15/24 azithromycin 250 mg tablet 250 mg PO DAILY #4 tabs 05/01/24 cefuroxime axetil 500 mg tablet 500 mg PO BID #12 tabs 05/01/24 chlordiazepoxide HCl 10 mg capsule 10 mg PO TID #20 caps 05/01/24 acetaminophen 325 mg tablet 650 mg (2 x 325 mg) PO Q6H PRN 05/04/24 pain #1 tab ipratropium 0.5 mg-albuterol 3 mg 3 ml inhalation Q6-8H PRN 05/11/24 (2.5 mg base)/3 mL nebulization shortness of breath or wheezing soln #180 mL Allergies Allergy/AdvReac Type Severity Reaction Status Date / Time fluconazole Allergy Severe SWEATING, Verified 08/21/23 10:33 SOB, NAUSEA diclofenac [DICLOFENAC] Allergy Intermediate RASH ON Verified 08/21/23 10:33 FACE; LIGHTHEADEDNESS Review of Systems Review of Systems Narrative: Pertinent positive and negative findings as per HPI Patient History Medical History Alcoholism in remission Acute upper GI bleed Mixed hyperlipidemia History of kidney disease as a child (10/09/16) 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) Essential hypertension (10/09/16) Surgical History Hx of appendectomy (1977) Hx of hernia repair (1999) History of nephrectomy (1977) History of unilateral nephrectomy (10/09/16) Family History Father Congestive heart failure Diabetes mellitus COPD (chronic obstructive pulmonary disease) Mother Hypertension Diabetes mellitus Cancer Social History household members: spouse Smoking Status: Current every day smoker alcohol intake: current substance use type: marijuana Smoking Status: Current every day smoker tobacco type: cigarettes alcohol intake frequency: 3 or more drinks per day Alcohol type: beer Substance Use Type: marijuana Exam Initial Vital Signs Initial Vital Signs: Vital Signs Temperature 99.3 F 05/11/24 14:40 Pulse Rate 129 H 05/11/24 14:40 Respiratory Rate 18 05/11/24 14:40 Blood Pressure 144/83 H 05/11/24 14:40 Pulse Oximetry 99 05/11/24 14:40 Oxygen Delivery Method Room Air 05/11/24 14:40 General: Chronically ill-appearing, no significant wheeze Able to give a complete and coherent history. HEENT: Moist mucous membranes, normal sclera with reactive pupils, Neck: No JVD, no cervical adenopathy Respiratory: Lungs with scattered wheeze no rhonchi Cardiac: Tachycardic but regular. Abdomen: Soft, nontender, good bowel tones, no flank pain Skin: Warm and dry, no rashes Neurologic: Grossly neurologically intact with no obvious asymmetries or abnormalities Extremities: No trauma, well perfused, no lower extremity edema Psych: Cooperative, appropriate insight and affect Course Orders Ordered: ED Orders 05/11/24 14:44 XR chest 1V Stat EKG-12 Lead Stat Measure peak expiratory flow ONCE RT Consult Eval and Treat NOW 05/11/24 14:48 Complete Blood Count AUTO DIFF Stat Comprehensive Metabolic Panel Stat Lactate (Lactic Acid) Stat NT-proBNP (BNP-Adult 18+) Stat Prothrombin Time INR Stat Troponin I Stat Discontinued Medications Albuterol (Albuterol 2.5 Mg/3 Ml Neb (Adult)) 10 mg INH NOW ONE Stop: 05/11/24 18:22 Last Admin: 05/11/24 18:38 Dose: 10 mg Documented By: ADAM Albuterol/Ipratropium (Albuterol/Ipratropium 3 Ml Ampul) 3 ml INH NOW ONE Stop: 05/11/24 15:00 Last Admin: 05/11/24 15:03 Dose: 3 ml Documented By: ADAM Sodium Chloride (Normal Saline 0.9%) 1,000 mls @ 1,000 mls/hr IV BOLUS ONE Stop: 05/11/24 17:10 Last Infusion: 05/11/24 17:49 Dose: Infused Documented By: Admin: 05/11/24 16:21 Dose: 1,000 mls/hr Documented By: RENU Magnesium Sulfate (Magnesium Sulfate) 2 gm in 50 mls @ 150 mls/hr IV NOW ONE Stop: 05/11/24 16:30 Last Infusion: 05/11/24 16:57 Dose: Infused Documented By: RENU Co-signed By: NELIA Admin: 05/11/24 16:22 Dose: 150 mls/hr Documented By: RENU Co-signed By: PENG Lorazepam (Lorazepam 2 Mg/Ml Inj) 2 mg IV NOW ONE Stop: 05/11/24 16:12 Last Admin: 05/11/24 16:22 Dose: 2 mg Documented By: RENU Methylprednisolone (Methylprednisolone 125 Mg/2 Ml Vial) 125 mg IV NOW ONE Stop: 05/11/24 16:12 Last Admin: 05/11/24 16:22 Dose: 125 mg Documented By: RENU Vital Signs Vital signs: Vital Signs - 8 hr 05/11/24 14:40 05/11/24 15:03 05/11/24 15:08 Temperature 99.3 F Pulse Rate 129 H 124 H 127 H Respiratory Rate 18 18 17 Blood Pressure 144/83 H Pulse Oximetry 99 97 99 Oxygen Delivery Method Room Air Room Air Oxygen Flow Rate 0 Fraction of Inspired Oxygen 21 05/11/24 15:30 05/11/24 15:30 05/11/24 16:00 Temperature Pulse Rate 128 H 129 H Respiratory Rate 14 18 Blood Pressure 133/81 Pulse Oximetry 92 97 Oxygen Delivery Method Oxygen Flow Rate Fraction of Inspired Oxygen 05/11/24 16:00 05/11/24 16:30 05/11/24 16:30 Temperature Pulse Rate 126 H Respiratory Rate 18 Blood Pressure 158/95 H 152/91 H Pulse Oximetry 96 Oxygen Delivery Method Oxygen Flow Rate Fraction of Inspired Oxygen 05/11/24 17:00 05/11/24 17:00 05/11/24 17:30 Temperature Pulse Rate 117 H Respiratory Rate 18 Blood Pressure 123/74 137/72 Pulse Oximetry 92 Oxygen Delivery Method Room Air Oxygen Flow Rate Fraction of Inspired Oxygen 05/11/24 17:30 05/11/24 18:00 05/11/24 18:00 Temperature Pulse Rate 116 H 120 H Respiratory Rate 18 19 Blood Pressure 136/84 Pulse Oximetry 96 97 Oxygen Delivery Method Oxygen Flow Rate Fraction of Inspired Oxygen Medical Decision Making Lab Data 05/11/24 14:48 05/11/24 14:48 Labs: Lab Results 05/11/24 05/11/24 Range/Units 14:48 17:22 WBC 9.2 (4.5-11.0) X10^3/uL RBC 4.31 L (4.5-5.9) X10^6/uL Hgb 15.1 (13.5-17.5) g/dL Hct 44.2 (41-53) % MCV 102.5 H (80-100) fL MCH 35.1 H (26-34) PG MCHC 34.2 (30-36) % RDW 14.2 (11.6-14.8) % Plt Count 441 H (150-400) X10^3/uL Neut % (Auto) Not Reportable Lymph % (Auto) Not Reportable Mercer % (Auto) Not Reportable Eos % (Auto) Not Reportable Baso % (Auto) Not Reportable Lymph # (Auto) Not Reportable Mercer # (Auto) Not Reportable Baso # (Auto) Not Reportable Total Counted 100 Seg Neutrophils % 66.0 (38-70) % Band Neutrophils % 3.0 (3-7) % Lymphocytes % (Manual) 25.0 (25-45) % Monocytes % (Manual) 5.0 (2-11) % Eosinophils % (Manual) 1.0 L (2-4) % Neutrophils # (Manual) 6348 H (1101-9038) /uL RBC Morphology See below Macrocytosis 1+ H PT 9.8 (9.4-12.5) SECONDS INR 0.9 (0.9-1.3) Sodium 135 L (137-145) mmol/L Potassium 4.4 (3.4-5.1) mmol/L Chloride 101 (98-107) mmol/L Carbon Dioxide 21 L (22-32) mmol/L BUN 12 (9-20) mg/dL Creatinine 0.84 (0.66-1.25) mg/dL Estimated GFR > 60 (>60) mL/min BUN/Creatinine Ratio 14.3 (6-22) Glucose 120 H (80-110) mg/dL Lactate 3.5 H 2.2 H (0.7-2.1) mmol/L Calcium 10.2 (8.4-10.2) mg/dL Total Bilirubin 0.5 (0.2-1.3) mg/dL AST 86 H (17-59) IU/L ALT 57 H (<50) IU/L Alkaline Phosphatase 72 (38-126) U/L Troponin I < 0.012 (0.01-0.034) ng/mL NT-Pro-B Natriuret Pep < 20 (<125) pg/mL Total Protein 8.1 (6.3-8.2) g/dL Albumin 4.5 (3.5-5.0) g/dL Globulin 3.6 (1.7-4.1) g/dL Albumin/Globulin Ratio 1.3 (1.0-2.8) MDM Narrative Medical decision making narrative: CC: Acute dyspnea Complicating co-morbidities: Recent admission for community-acquired pneumonia, COPD, hypertension, alcohol use disorder Data collected from: patient Medical records reviewed: Discharge summary patient admitted April 30 through May 01. Differential considered: COPD exacerbation, recurrent pneumonia, atypical pneumonia, PE, pneumothorax, acute coronary syndrome, congestive heart failure, pulmonary hypertension Exam documented above, pertinent findings include: Patient is tachycardic, mild wheeze throughout no rhonchi appreciated. No abdominal tenderness he is alert and appropriate Lab Test results independently reviewed as above. Pertinent findings: CBC shows macrocytosis but no significant anemia platelets are elevated at 441 INR is within normal limits Chemistries are notable for minimally elevated AST and ALT. Bilirubin is normal Lactate elevated at 3.5 Independently reviewed EKG: Tachycardia at 121.. Nonspecific STT wave changes. No acute ischemia Imaging studies independently reviewed: Chest x-ray shows hyperinflation but no infiltrates no cardiomegaly Treatments: DuoNeb, saline, magnesium, 2 mg of Ativan, methylprednisolone IV Discussion: 63-year-old gentleman who presents with acute dyspnea with no obvious abnormality. No evidence of acute coronary syndrome, congestive heart failure with recent admission he had had elevated lactic acid that was felt to be secondary to his drinking I believe that is the case again. Had had a significantly elevated D-dimer with a negative CT scan and I do not suspect PE at this time. Chest x-ray does not show infiltrate, significant cardiomegaly or interstitial abnormalities. He has responded relatively well to nebulizer. At this point I think the most likely explanation for his symptoms is continued COPD exacerbation likely exacerbated by his baseline alcohol use disorder. We were able to get him a nebulizer to take home I will give him prescriptions for DuoNeb to use at home as needed. He does have follow up with his primary care physician in the near future. I do not think that antibiotics are needed, at this time I do not think that additional steroids are needed. Of note, he has been consistently tachycardic through multiple previous visits and I do not think that this is an indication of new findings or reason for admission at this time all of these concerns are shared with the patient, he understands the need to return to the emergency department if he is worse. His lactic acid level has come down nicely with hydration, his liver enzymes are less than they has been with previous admission. He is safe for discharge. Discharge Plan Departure Patient Disposition: Home Clinical Impression: Acute exacerbation of chronic obstructive pulmonary disease Instructions: DI for Chronic Obstructive Pulmonary Disease Activity Restrictions/Additional Instructions: Thank you for coming in today Your workup was actually fairly reassuring. There was no evidence of heart attack, congestive heart failure, sepsis or recurrent pneumonia. I suspect that a lot of your shortness of breath is from COPD. I have given you a nebulizer machine to use at home. Given you a prescription for DuoNeb solution to use up to 4 times a day. I would suggest doing a nebulizer treatment before bed to see if you are able to sleep through the night. 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 If you find that you are getting worse or develop any new symptoms, please feel free to return to the emergency department for further evaluation. Prescriptions: New ipratropium-albuterol 0.5 mg-3 mg(2.5 mg base)/3 mL solution for nebulization 3 ml inhalation Q6-8H PRN (Reason: shortness of breath or wheezing) Qty: 180 0RF No Action ascorbic acid (vitamin C) 250 mg tablet 250 mg PO DAILY nortriptyline 25 mg capsule 25 mg PO BEDTIME Qty: 30 1RF famotidine 20 mg tablet 20 mg PO BEDTIME Qty: 90 2RF lisinopril 20 mg tablet 20 mg PO DAILY Qty: 30 5RF atorvastatin 40 mg tablet 40 mg PO DAILY Qty: 90 0RF magnesium 250 mg tablet 400 mg PO DAILY acetaminophen 325 mg tablet 650 mg PO Q6H PRN (Reason: pain) Qty: 1 0RF aspirin 81 mg Capsule 81 mg PO DAILY chlordiazepoxide HCl 10 mg Capsule 10 mg PO TID Qty: 20 0RF cefuroxime axetil 500 mg tablet 500 mg PO BID Qty: 12 0RF azithromycin 250 mg tablet 250 mg PO DAILY Qty: 4 0RF Referrals: Miguel Ángel Bruce MD [Primary Care Provider] - Stand Alone Forms: Patient Portal/API/Survey
[2024-05-11 15:37] LABS: NT-proBNP (BNP-Adult 18+) < 20 pg/mL (<125); Troponin I < 0.012 ng/mL (0.01-0.034)
[2024-05-11 15:43] LABS: Macrocytosis 1+; Neutrophils Absolute Manual 6348 /uL (3000-5900); Total Cells Counted 100
[2024-05-11] MEDS: SODIUM CHLORIDE 0.9% 1,000 ML 1000 ML IV (16:21)
[2024-05-11] MEDS: methylPREDNISolone 125 MG/2 ML VIAL IV (16:22)
[2024-05-11] MEDS: LORazepam 2 MG/ML INJ IV (16:22)
[2024-05-11] MEDS: MAGNESIUM SULFATE 2 GM/50 ML PIGGYBACK IV (16:22)
[2024-05-11 16:36] LABS: Reflexed Lactate in 2 Hours Y
[2024-05-11 17:39] LABS: Lactate 2HR (Lactic Acid Rflx) 2.2 mmol/L (0.7-2.1)
[2024-05-11] MEDS: ALBUTEROL 2.5 MG/3 ML NEB (ADULT) 10 MG INH (18:38)
== END 2024-05-11 19:06 | disposition home or self-care (01) ==
PROVIDERS: Emergency Provider Emergency Medicine; PCP Family Medicine
DX: J44.1 Chronic obstructive pulmonary disease with (acute) exacerbation (principal); R00.0 Tachycardia, unspecified
CPT/HCPCS: 36415; 71045; 80053; 83605; 83880; 84484; 85007; 85025; 85610; 93005; 93010; 96365; 96375; 99284; J2060; J2919; J3475; J7613

== ENCOUNTER → 2024-05-20 11:43 | Outpatient (CLI) | payer OTHER, MEDICAID, SELFPAY ==
[2024-04-30 13:54] VITALS: BMI 21.4
== END ==
LOC: RESP 11:44
PROVIDERS: PCP Family Medicine; Referring Provider Family Medicine; Visit Provider Family Medicine
DX: J44.1 Chronic obstructive pulmonary disease with (acute) exacerbation (principal); F17.210 Nicotine dependence, cigarettes, uncomplicated; R94.2 Abnormal results of pulmonary function studies; R06.09 Other forms of dyspnea
CPT/HCPCS: 94060; 94726; 94729

== ENCOUNTER 2024-05-27 10:13 | Emergency (ER) | payer OTHER, MEDICAID, SELFPAY ==
[2024-04-30 13:54] VITALS: BMI 21.4
[2024-05-27] VITALS (11 sets, daily range): BP systolic 110–152; BP diastolic 72–91; PULSE 100–121; RESP 15–24; TEMP 36.4; O2SAT 91–99; BMI 23.0
[2024-05-27] MEDS: ONDANSETRON 4 MG ODT SL (10:51)
--- NOTE | 2024-05-27 11:08 | DI.US.S_ITS ---
PROCEDURE: US ARTERIAL DUPLEX LE BI INDICATIONS: COLD FEET TECHNIQUE: Color and pulse Doppler interrogation was performed of both lower extremity arterial systems, with image documentation. COMPARISON: None. FINDINGS: Right lower extremity: Common femoral artery: 75 cm/sec, with triphasic flow. Deep femoral artery: 59 cm/sec, with triphasic flow. Proximal superficial femoral artery: 71 cm/sec, with triphasic flow. Mid superficial femoral artery: 86 cm/sec, with triphasic flow. Distal superficial femoral artery: 62 cm/sec, with triphasic flow. Popliteal artery: 52 cm/sec, with triphasic flow. Posterior tibial artery: 57 cm/sec, with triphasic flow. Anterior tibial artery/dorsalis pedis: 41 cm/sec, with biphasic flow. Wright-scale imaging description: No significant stenosis Left lower extremity: Common femoral artery: 74 cm/sec, with triphasic flow. Deep femoral artery: 71 cm/sec, with biphasic flow. Proximal superficial femoral artery: 85 cm/sec, with triphasic flow. Mid superficial femoral artery: 97 cm/sec, with triphasic flow. Distal superficial femoral artery: 78 cm/sec, with triphasic flow. Popliteal artery: 55 cm/sec, with triphasic flow. Posterior tibial artery: 59 cm/sec, with triphasic flow. Anterior tibial artery/dorsalis pedis: 52 cm/sec, with triphasic flow. Wright-scale imaging description: No significant stenosis. IMPRESSION: No significant stenosis of the bilateral lower extremities. Dictated by: Juliocesar Rae M.D. on 05/27/2024 at 11:57 Approved by: Juliocesar Rae M.D. on 05/27/2024 at 11:58
[2024-05-27 11:29] LABS: Add Manual Diff / Slide Review NO; Basophils Absolute Auto 0 /uL (0-100); Basophils Percent Auto 0.5 % (0-2); Eosinophils Absolute Auto 300 /uL (0-450); Eosinophils Percent Auto 5.2 % (2-4); Hematocrit 38.6 % (41-53); Lymphocytes Absolute Auto 1300 /uL (1100-4500); Lymphocytes Percent Auto 24.2 % (25-40); Mean Corpuscular HGB Conc 33.8 % (30-36); Mean Corpuscular Hemoglobin 34.7 PG (26-34); Mean Corpuscular Volume 102.7 fL (80-100); Monocytes Absolute Auto 500 /uL (0-900); Monocytes Percent Auto 8.7 % (3-14); Neutrophils Absolute Auto 3300 /uL (1500-7000); Neutrophils Percent Auto 61.4 % (50-75); Platelet Count 184 X10^3/uL (150-400); Red Blood Cell Count 3.76 X10^6/uL (4.5-5.9); Red Cell Distribution Width 14.1 % (11.6-14.8); White Blood Cell Count 5.4 X10^3/uL (4.5-11.0)
--- NOTE | 2024-05-27 11:31 | ED.EXTPRO ---
HPI - Extremity Problem General Chief complaint: Extremity Problem,Nontraumatic Stated complaint: Feet are cold to the touch, sore Time Seen by Provider: 05/27/24 11:06 History of Present Illness HPI Narrative: 63-year-old male with history of post COVID right foot drop January 2024, no prior blood clot problems to lungs or legs, has had recent cold feet both sides, no injury or trauma, no upper extremity symptoms, no known history of Raynaud's disease, no peripheral artery surgical interventions. He has a history of single kidney. No aortic problems known. Related Data Home Medications Medication Instructions Recorded Confirmed aspirin 81 mg capsule 81 mg PO DAILY 04/06/23 05/13/24 ascorbic acid (vitamin C) 250 mg 250 mg PO DAILY 04/18/23 05/13/24 tablet magnesium 250 mg tablet 400 mg PO DAILY 05/04/24 05/13/24 Previous Rx's Medication Instructions Recorded lisinopril 20 mg tablet 20 mg PO DAILY #30 tabs 11/19/23 famotidine 20 mg tablet 20 mg PO BEDTIME #90 tabs 04/01/24 nortriptyline 25 mg capsule 25 mg PO BEDTIME #30 caps 04/01/24 atorvastatin 40 mg tablet 40 mg PO DAILY #90 tabs 04/15/24 azithromycin 250 mg tablet 250 mg PO DAILY #4 tabs 05/01/24 cefuroxime axetil 500 mg tablet 500 mg PO BID #12 tabs 05/01/24 chlordiazepoxide HCl 10 mg capsule 10 mg PO TID #20 caps 05/01/24 acetaminophen 325 mg tablet 650 mg (2 x 325 mg) PO Q6H PRN 05/04/24 pain #1 tab ipratropium 0.5 mg-albuterol 3 mg 3 ml inhalation Q6-8H PRN 05/11/24 (2.5 mg base)/3 mL nebulization shortness of breath or wheezing soln #180 mL Allergies Allergy/AdvReac Type Severity Reaction Status Date / Time fluconazole Allergy Severe SWEATING, Verified 05/27/24 10:17 SOB, NAUSEA diclofenac [DICLOFENAC] Allergy Intermediate RASH ON Verified 05/27/24 10:17 FACE; LIGHTHEADEDNESS Review of Systems Review of Systems Narrative: see HPI Patient History Medical History Alcoholism in remission Acute upper GI bleed Mixed hyperlipidemia History of kidney disease as a child (10/09/16) 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) Essential hypertension (10/09/16) Surgical History Hx of appendectomy (1977) Hx of hernia repair (1999) History of nephrectomy (1977) History of unilateral nephrectomy (10/09/16) Family History Father Congestive heart failure Diabetes mellitus COPD (chronic obstructive pulmonary disease) Mother Hypertension Diabetes mellitus Cancer Social History household members: spouse Smoking Status: Current every day smoker Tobacco: How many years used: 45 alcohol intake: current substance use type: marijuana Smoking Status: Current every day smoker tobacco type: cigarettes alcohol intake frequency: 3 or more drinks per day Alcohol type: beer Substance Use Type: marijuana Exam Narrative Exam Narrative: GENERAL: Well-developed patient, in mild distress. HEAD: Atraumatic. Normocephalic. EYES: Pupils equal round and reactive. Extraocular motions intact. No scleral icterus. No injection or drainage. ENT: Nose without bleeding, purulent drainage. Throat without erythema, tonsillar hypertrophy or exudate. Airway patent. NECK: Trachea midline. Non tender CARDIOVASCULAR: Regular rate and rhythm without murmurs, gallops, or rubs. RESPIRATORY: Clear to auscultation. Breath sounds equal bilaterally. No wheezes, rales, or rhonchi. GASTROINTESTINAL: Abdomen soft, non-tender, nondistended. EXTREMITIES: Right foot drop noted, slight atrophy interdigital. Calves not obviously swollen. Both feet cool to the touch, however both have palpable bounding dorsalis pedis pulses. Good cap refill toes. BACK: Nontender without deformity or crepitance. No flank tenderness. NEURO: AOx3. Motor functions grossly nonfocal SKIN: No rash or erythema of visible areas Initial Vital Signs Initial Vital Signs: Vital Signs Temperature 97.6 F 05/27/24 10:17 Pulse Rate 117 H 05/27/24 10:17 Respiratory Rate 15 05/27/24 10:17 Blood Pressure 110/72 05/27/24 10:17 Pulse Oximetry 99 05/27/24 10:17 Oxygen Delivery Method Room Air 05/27/24 10:17 Course Orders Ordered: ED Orders 05/27/24 11:08 US arterial duplex LE BI Stat 05/27/24 11:20 Complete Blood Count AUTO DIFF Stat Comprehensive Metabolic Panel Stat Prothrombin Time INR Stat Discontinued Medications Ondansetron HCl (Ondansetron 4 Mg Odt) 4 mg SL NOW PRN PRN Reason: Nausea And Vomiting Last Admin: 05/27/24 10:51 Dose: 4 mg Documented By: RB Vital Signs Vital signs: Vital Signs - 8 hr 05/27/24 12:00 05/27/24 12:10 05/27/24 12:10 Pulse Rate 115 H 115 H Respiratory Rate 21 20 Blood Pressure 137/83 Pulse Oximetry 96 95 05/27/24 12:15 05/27/24 12:15 05/27/24 12:30 Pulse Rate 114 H Respiratory Rate 19 Blood Pressure 135/89 148/86 H Pulse Oximetry 96 05/27/24 12:30 05/27/24 12:46 05/27/24 12:46 Pulse Rate 115 H 121 H Respiratory Rate 21 19 Blood Pressure 152/85 H Pulse Oximetry 95 96 MDM - Extremity (Nontraumatic) Lab Data 05/27/24 11:20 05/27/24 11:20 Labs: Lab Results 05/27/24 Range/Units 11:20 WBC 5.4 (4.5-11.0) X10^3/uL RBC 3.76 L (4.5-5.9) X10^6/uL Hgb 13.0 L (13.5-17.5) g/dL Hct 38.6 L (41-53) % MCV 102.7 H (80-100) fL MCH 34.7 H (26-34) PG MCHC 33.8 (30-36) % RDW 14.1 (11.6-14.8) % Plt Count 184 (150-400) X10^3/uL Neut % (Auto) 61.4 (50-75) % Lymph % (Auto) 24.2 L (25-40) % [place] % (Auto) 8.7 (3-14) % Eos % (Auto) 5.2 H (2-4) % Baso % (Auto) 0.5 (0-2) % Neut # (Auto) 3300 (6465-6113) /uL Lymph # (Auto) 1300 (5207-9042) /uL [place] # (Auto) 500 (0-900) /uL Eos # (Auto) 300 (0-450) /uL Baso # (Auto) 0 (0-100) /uL PT 9.9 (9.4-12.5) SECONDS INR 0.9 (0.9-1.3) Sodium 135 L (137-145) mmol/L Potassium 4.5 (3.4-5.1) mmol/L Chloride 100 (98-107) mmol/L Carbon Dioxide 24 (22-32) mmol/L BUN 12 (9-20) mg/dL Creatinine 0.85 (0.66-1.25) mg/dL Estimated GFR > 60 (>60) mL/min BUN/Creatinine Ratio 14.1 (6-22) Glucose 104 (80-110) mg/dL Calcium 8.8 (8.4-10.2) mg/dL Total Bilirubin 0.6 (0.2-1.3) mg/dL AST 356 H (17-59) IU/L ALT 199 H (<50) IU/L Alkaline Phosphatase 74 (38-126) U/L Total Protein 7.2 (6.3-8.2) g/dL Albumin 4.2 (3.5-5.0) g/dL Globulin 3.0 (1.7-4.1) g/dL Albumin/Globulin Ratio 1.4 (1.0-2.8) Imaging Data Ultrasound arterial Doppler studies bilateral lower extremities: Radiologist's Impression: Close Duplex Scan Lower Extremity Artery (Signed) Juliocesar Rae - 05/27/[address] [address] Ultrasound Report Signed Patient: Donavan Lizama MR#: [id number] : 1960 Acct:[id number] Age/Sex: 63 / M Date of Service: 05/27/24 Loc: ED Accession Number: [id number] Procedure: US arterial duplex LE BI Ordering Provider: Liu Boyd MD PROCEDURE: US ARTERIAL DUPLEX LE BI INDICATIONS: COLD FEET TECHNIQUE: Color and pulse Doppler interrogation was performed of both lower extremity arterial systems, with image documentation. COMPARISON: None. FINDINGS: Right lower extremity: Common femoral artery: 75 cm/sec, with triphasic flow. Deep femoral artery: 59 cm/sec, with triphasic flow. Proximal superficial femoral artery: 71 cm/sec, with triphasic flow. Mid superficial femoral artery: 86 cm/sec, with triphasic flow. Distal superficial femoral artery: 62 cm/sec, with triphasic flow. Popliteal artery: 52 cm/sec, with triphasic flow. Posterior tibial artery: 57 cm/sec, with triphasic flow. Anterior tibial artery/dorsalis pedis: 41 cm/sec, with biphasic flow. Wright-scale imaging description: No significant stenosis Left lower extremity: Common femoral artery: 74 cm/sec, with triphasic flow. Deep femoral artery: 71 cm/sec, with biphasic flow. Proximal superficial femoral artery: 85 cm/sec, with triphasic flow. Mid superficial femoral artery: 97 cm/sec, with triphasic flow. Distal superficial femoral artery: 78 cm/sec, with triphasic flow. Popliteal artery: 55 cm/sec, with triphasic flow. Posterior tibial artery: 59 cm/sec, with triphasic flow. Anterior tibial artery/dorsalis pedis: 52 cm/sec, with triphasic flow. Wright-scale imaging description: No significant stenosis. IMPRESSION: No significant stenosis of the bilateral lower extremities. Dictated by: Juliocesar Rae M.D. on 05/27/2024 at 11:57 Approved by: Juliocesar Rae M.D. on 05/27/2024 at 11:58 MDM Narrative Medical decision making narrative: 63-year-old male with bilateral cold feet symptoms recent, no known PID, history of right footdrop after COVID illness January 2024, no history of Raynaud's symptoms known, no upper extremity similar symptoms. Here for ultrasound evaluation vascular study. Has cool feet but palpable dorsalis pedis pulses, right foot drop noted on examination with slight atrophy interdigital. Ultrasound arterial study bilateral lower extremity ordered. History of single kidney, we will send labs but I am reluctant to advise IV CTA aortogram/runoff study given history of single kidney. Patient agrees. Ultrasound arterial study bilateral lower extremities, no significant vascular abnormality noted. See radiology report. Copy of the report given to patient. Advised for now environmental protection against cold exposure, warm socks/footwear. Follow up with PCP. Doubt significant aortic issue if peripheral Doppler arterial studies reassuring, also patient has history of single kidney, would avoid IV contrast media that would be required for aortogram imaging by CT angiogram. Patient expressed understanding. Discharged home with family. Follow up as an outpatient for now. Discharge Plan Departure Patient Disposition: Home Clinical Impression: Bilateral foot pain, Bilateral cold feet Activity Restrictions/Additional Instructions: Problems with cold feet sensation both sides. No swelling symptoms, not suggestive of venous clotting by history. Arterial studies done, venous ultrasound of bilateral lower extremity arterial vessels performed, no vascular abnormalities noted. On examination your dorsalis pedis pulse a top your feet seemed quite bounding and not reduced. You did seem to have some coolness to both feet, this is possibly due to local vasoconstriction problems. You did not remember any history of Raynaud's syndrome, did not seem to have problems with cold upper extremities or blanching. It is possible you have some kind of peripheral neuropathy or neuropathic problem that might be related to your blood flow locally. You did not have any history of known diabetes. For now would advise warm socks/footwear, environmental protection against cold exposure for now. Tylenol as needed for discomfort. Consider baby aspirin once daily, though there is not necessarily a blood flow problem, but might be helpful for capillary flow issues, and a measure of pain control. You had a history of single kidney, we did discuss aortogram imaging, which seems not necessary given your peripheral artery seem reassuring, also the IV contrast exposure would be contraindicated if he only had 1 functional kidney. Further follow up as an outpatient, follow up with your regular doctor early next week. Return to this/nearest emergency department for any change worsening symptoms or any concerns prior Prescriptions: No Action ascorbic acid (vitamin C) 250 mg tablet 250 mg PO DAILY nortriptyline 25 mg capsule 25 mg PO BEDTIME Qty: 30 1RF famotidine 20 mg tablet 20 mg PO BEDTIME Qty: 90 2RF lisinopril 20 mg tablet 20 mg PO DAILY Qty: 30 5RF atorvastatin 40 mg tablet 40 mg PO DAILY Qty: 90 0RF magnesium 250 mg tablet 400 mg PO DAILY acetaminophen 325 mg tablet 650 mg PO Q6H PRN (Reason: pain) Qty: 1 0RF aspirin 81 mg Capsule 81 mg PO DAILY chlordiazepoxide HCl 10 mg Capsule 10 mg PO TID Qty: 20 0RF cefuroxime axetil 500 mg tablet 500 mg PO BID Qty: 12 0RF azithromycin 250 mg tablet 250 mg PO DAILY Qty: 4 0RF ipratropium-albuterol 0.5 mg-3 mg(2.5 mg base)/3 mL solution for nebulization 3 ml inhalation Q6-8H PRN (Reason: shortness of breath or wheezing) Qty: 180 0RF Referrals: Miguel Ángel Bruce MD [Primary Care Provider] - Stand Alone Forms: Patient Portal/API/Survey
[2024-05-27 11:37] LABS: INR 0.9 (0.9-1.3); Prothrombin Time 9.9 SECONDS (9.4-12.5)
[2024-05-27 11:42] LABS: Alanine Aminotransferase 199 IU/L (<50); Alkaline Phosphatase 74 U/L (38-126); Aspartate Aminotransferase 356 IU/L (17-59); BUN Creatinine Ratio 14.1 (6-22); Bilirubin Total 0.6 mg/dL (0.2-1.3); Blood Urea Nitrogen 12 mg/dL (9-20); Calcium 8.8 mg/dL (8.4-10.2); Chloride 100 mmol/L (98-107); Estimated Glomerular Filt Rate > 60 mL/min (>60); Glucose 104 mg/dL (80-110); HEMOLYSIS < 15 (0-50); Potassium 4.5 mmol/L (3.4-5.1); Sodium 135 mmol/L (137-145); Total Protein 7.2 g/dL (6.3-8.2)
[2024-05-27 11:51] LABS: Albumin 4.2 g/dL (3.5-5.0); Albumin Globulin Ratio 1.4 (1.0-2.8); Carbon Dioxide 24 mmol/L (22-32)
== END 2024-05-27 12:56 | disposition home or self-care (01) ==
PROVIDERS: Emergency Provider Emergency Medicine; PCP Family Medicine
DX: M79.671 Pain in right foot (principal); M79.672 Pain in left foot; R20.9 Unspecified disturbances of skin sensation
CPT/HCPCS: 36415; 80053; 85025; 85610; 93925; 99284

== ENCOUNTER 2024-07-07 13:25 | Emergency (ER) | payer OTHER, SELFPAY ==
[2024-04-30 13:54] VITALS: BMI 21.4
[2024-07-07] VITALS (14 sets, daily range): BP systolic 137–187; BP diastolic 81–109; PULSE 101–131; RESP 18; TEMP 36.8; O2SAT 95–99; BMI 23.0
--- NOTE | 2024-07-07 15:10 | PC.NURSE ---
Patient here in department for concerns that he is not peeing enough, he has no urgency, dysuria, blood in urine. patient does have one functional kidney. Peed while in department UA came back negative. Patient has alcohol dependence but is not interested in any help at this, admits to not drinking very much water just beer.
--- NOTE | 2024-07-07 15:54 | ED.MALEGU ---
HPI - Male Genitourinary General Chief complaint: Urogenital-Male Stated complaint: urinary problem Time Seen by Provider: 07/07/24 14:44 Source: patient Mode of arrival: Ambulatory History of Present Illness HPI Narrative: Patient here with . Complains of urinary urgency/hesitancy. Had difficulty today with urination but able to void here. Bladder scan 350 mL. Denies any pain. Denies any prior history of BPH. Does have history of kidney disease when he was 17 years old had to have the right 1 removed. Not due to trauma or high blood pressure but due to something genetic he states. Does have history of hypertension. Patient in no distress at this time. He denies any chest pain back pain abdominal pain. No hematuria. Patient is very cooperative. Slightly anxious. He admits he does drink alcohol every day. And throughout the day. No seizures. Related Data Home Medications Medication Instructions Recorded Confirmed aspirin 81 mg capsule 81 mg PO DAILY 04/06/23 05/13/24 ascorbic acid (vitamin C) 250 mg 250 mg PO DAILY 04/18/23 05/13/24 tablet magnesium 250 mg tablet 400 mg PO DAILY 05/04/24 05/13/24 Previous Rx's Medication Instructions Recorded famotidine 20 mg tablet 20 mg PO BEDTIME #90 tabs 04/01/24 atorvastatin 40 mg tablet 40 mg PO DAILY #90 tabs 04/15/24 acetaminophen 325 mg tablet 650 mg (2 x 325 mg) PO Q6H PRN 05/04/24 pain #1 tab ipratropium 0.5 mg-albuterol 3 mg 3 ml inhalation Q6-8H PRN 05/11/24 (2.5 mg base)/3 mL nebulization shortness of breath or wheezing soln #180 mL nortriptyline 25 mg capsule 25 mg PO ONCE PM #30 caps 06/02/24 tiotropium 2.5 mcg-olodaterol 2.5 2 puff inhalation DAILY #4 grams 06/10/24 mcg/actuation mist for inhalation lisinopril 20 mg tablet 20 mg PO DAILY #30 tabs 06/12/24 Allergies Allergy/AdvReac Type Severity Reaction Status Date / Time fluconazole Allergy Severe SWEATING, Verified 06/10/24 16:05 SOB, NAUSEA diclofenac [DICLOFENAC] Allergy Intermediate RASH ON Verified 06/10/24 16:05 FACE; LIGHTHEADEDNESS Review of Systems Review of Systems Narrative: GENERAL: Negative chills, fatigue, malaise, fever, sweats. HEENT: Negative sinus pain, ear pain, sore throat RESPIRATORY: Negative dyspnea, cough CARDIOVASCULAR: Negative chest pain, palpitations GASTROINTESTINAL: Negative nausea, vomiting, abdominal pain : Positive dysuria, negative frequency, hematuria MUSCULOSKELETAL: Negative muscle or bony pain SKIN: Negative rash, skin lesions NEUROLOGIC: Negative weakness, numbness ROS Unobtainable: All systems reviewed & are unremarkable except as noted in HPI and below Patient History Medical History Alcoholism in remission Acute upper GI bleed Mixed hyperlipidemia History of kidney disease as a child (10/09/16) 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) Essential hypertension (10/09/16) Surgical History Hx of appendectomy (1977) Hx of hernia repair (1999) History of nephrectomy (1977) History of unilateral nephrectomy (10/09/16) Family History Father Congestive heart failure Diabetes mellitus COPD (chronic obstructive pulmonary disease) Mother Hypertension Diabetes mellitus Cancer Social History household members: spouse Smoking Status: Current some day smoker Tobacco: How many years used: 45 alcohol intake: current substance use type: marijuana Smoking Status: Current some day smoker tobacco type: cigarettes alcohol intake frequency: 3 or more drinks per day Alcohol type: beer Exam Narrative Exam Narrative: GENERAL: in no distress, not toxic not dyspneic HEAD: Normocephalic. EYES: Pupils equal round ENT: Mucous membranes moist. NECK: Trachea midline. CARDIOVASCULAR: Regular rate and rhythm, tachycardia RESPIRATORY: Clear to auscultation. Breath sounds equal bilaterally. No wheezes, rales, or rhonchi. GASTROINTESTINAL: Abdomen soft, non-tender EXTREMITIES: No gross deformities. BACK: No flank tenderness. NEURO: AOx4. SKIN: Warm and dry PSYCH: Not anxious, is cooperative Initial Vital Signs Initial Vital Signs: Vital Signs Temperature 98.2 F 07/07/24 13:55 Pulse Rate 110 H 07/07/24 13:55 Respiratory Rate 18 07/07/24 13:55 Blood Pressure 141/95 H 07/07/24 13:55 Pulse Oximetry 96 07/07/24 13:55 Oxygen Delivery Method Room Air 07/07/24 13:55 Course Orders Ordered: Discontinued Medications Ondansetron HCl (Ondansetron 4 Mg Odt) 4 mg SL NOW ONE Stop: 07/07/24 18:13 Last Admin: 07/07/24 18:14 Dose: 4 mg Documented By: RADHA Vital Signs Vital signs: Vital Signs - 8 hr 07/07/24 13:55 07/07/24 14:26 07/07/24 14:30 Temperature 98.2 F Pulse Rate 110 H 105 H 101 H Respiratory Rate 18 Blood Pressure 141/95 H Pulse Oximetry 96 95 96 Oxygen Delivery Method Room Air 07/07/24 14:30 07/07/24 15:00 07/07/24 15:01 Temperature Pulse Rate 111 H 119 H Respiratory Rate Blood Pressure 143/94 H Pulse Oximetry 96 97 Oxygen Delivery Method 07/07/24 15:01 07/07/24 15:30 07/07/24 15:30 Temperature Pulse Rate 119 H Respiratory Rate Blood Pressure 137/81 149/98 H Pulse Oximetry 97 Oxygen Delivery Method 07/07/24 16:00 07/07/24 16:00 07/07/24 16:30 Temperature Pulse Rate 122 H 111 H Respiratory Rate Blood Pressure 139/101 H Pulse Oximetry 98 99 Oxygen Delivery Method 07/07/24 16:30 07/07/24 17:00 07/07/24 17:00 Temperature Pulse Rate 109 H Respiratory Rate Blood Pressure 154/97 H 162/96 H Pulse Oximetry 98 Oxygen Delivery Method 07/07/24 17:30 07/07/24 17:30 07/07/24 17:49 Temperature Pulse Rate 116 H 131 H Respiratory Rate Blood Pressure 146/90 H Pulse Oximetry 96 97 Oxygen Delivery Method 07/07/24 17:49 07/07/24 18:00 07/07/24 18:00 Temperature Pulse Rate 120 H Respiratory Rate Blood Pressure 164/97 H 140/92 H Pulse Oximetry 98 Oxygen Delivery Method 07/07/24 18:30 07/07/24 18:30 07/07/24 18:32 Temperature Pulse Rate 129 H 128 H Respiratory Rate Blood Pressure 187/100 H Pulse Oximetry 97 97 Oxygen Delivery Method 07/07/24 18:32 Temperature Pulse Rate Respiratory Rate Blood Pressure 164/109 H Pulse Oximetry Oxygen Delivery Method MDM - Male Genitourinary Lab Data 07/07/24 16:10 07/07/24 16:10 Labs: Lab Results 07/07/24 Range/Units 16:10 WBC 5.8 (4.5-11.0) X10^3/uL RBC 4.02 L (4.5-5.9) X10^6/uL Hgb 14.1 (13.5-17.5) g/dL Hct 41.5 (41-53) % MCV 103.2 H (80-100) fL MCH 35.1 H (26-34) PG MCHC 34.0 (30-36) % RDW 14.6 (11.6-14.8) % Plt Count 269 (150-400) X10^3/uL Neut % (Auto) 61.8 (50-75) % Lymph % (Auto) 27.7 (25-40) % [place] % (Auto) 7.7 (3-14) % Eos % (Auto) 2.3 (2-4) % Baso % (Auto) 0.5 (0-2) % Neut # (Auto) 3600 (4566-9342) /uL Lymph # (Auto) 1600 (6438-1408) /uL [place] # (Auto) 400 (0-900) /uL Eos # (Auto) 100 (0-450) /uL Baso # (Auto) 0 (0-100) /uL Sodium 141 (137-145) mmol/L Potassium 4.4 (3.4-5.1) mmol/L Chloride 104 (98-107) mmol/L Carbon Dioxide 24 (22-32) mmol/L BUN 8 L (9-20) mg/dL Creatinine 0.77 (0.66-1.25) mg/dL Estimated GFR > 60 (>60) mL/min BUN/Creatinine Ratio 10.4 (6-22) Glucose 96 (80-110) mg/dL Calcium 9.3 (8.4-10.2) mg/dL Total Bilirubin 0.4 (0.2-1.3) mg/dL AST 103 H (17-59) IU/L ALT 78 H (<50) IU/L Alkaline Phosphatase 77 (38-126) U/L Total Protein 8.1 (6.3-8.2) g/dL Albumin 4.7 (3.5-5.0) g/dL Globulin 3.4 (1.7-4.1) g/dL Albumin/Globulin Ratio 1.4 (1.0-2.8) Urine Dip Bedside Urine Glucose Negative Bedside Urine Bilirubin - Negative Bedside Urine Ketone - Negative Urine Specific [place] 1.005 Bedside Urine Occult Blood - Negative Bedside Urine pH 6.0 Bedside Urine Protein - Negative Bedside Urine Urobilinogen - Negative Bedside Urine Nitrite - Negative Bedside Urine Leukocytes - Negative Esterase [facility] Narrative Medical decision making narrative: Patient here with . Complains of urinary urgency/hesitancy. Had difficulty today with urination but able to void here. Bladder scan 350 mL. Denies any pain. Denies any prior history of BPH. Does have history of kidney disease when he was 17 years old had to have the right 1 removed. Not due to trauma or high blood pressure but due to something genetic he states. Does have history of hypertension. Patient in no distress at this time. He denies any chest pain back pain abdominal pain. No hematuria. Patient is very cooperative. Slightly anxious. He admits he does drink alcohol every day. And throughout the day. No seizures. After history and exam CBC CMP urinalysis bladder scan [facility] Medical records reviewed: No recent visit for this complaint Differential considered: Includes but not limited to BPH urinary retention UTI kidney stone Lab Test results independently reviewed as above. Pertinent findings: Urinalysis negative blood negative leukocyte esterase negative nitrates WBC 5.8 hemoglobin 14.1 sodium 141 potassium 4.4 BUN 8 creatinine 0.77 GFR greater than 60 Consultations: None indicated at this time. Treatments: None indicated at this time. Re-evaluations: 6:30 p.m.. Updated patient and results. Laboratory studies are reassuring. Tachycardia is not new according to patient and . I did review vital signs back to January 2024 a does persistently have tachycardia. He states he is anxious. He does drink alcohol throughout the day. His last drink was at 1:00 p.m.. He is getting a little nervous but currently not in withdrawals. He states his vital signs are likely due to needing to drink again. 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 Does see his primary care Dr. Bruce. I did give him referral for urology services for possible developing BPH. I did review with them renal function does look reassuring. He has been able to urinate clear urine here during the course of stay. No IV fluids are indicated this time. Vital signs likely due to possible development with withdrawals. He does not want any further observation. He would like to go home. is at bedside and is driving. Discussion: Appropriate for discharge home exam is reassuring. Return precautions reviewed with patient and . Referral for Urology provided. Not toxic at discharge. Vital signs are reviewed at discharge and patient does not want to stay any longer as he would like to go home. He states he will likely drank alcohol tonight as this is his routine. His last alcohol was at 1:00 p.m. today. No altered mental status. Diagnosis: Dysuria Discharge Plan Departure Patient Disposition: Home Clinical Impression: Dysuria Instructions: DI for Dysuria -- Adult Activity Restrictions/Additional Instructions: Your exam and laboratory studies are reassuring. Please see Dr. Bruce this week for re-evaluation. Please call provided urology office, Dr. Verdugo regarding evaluation for your prostate which may be enlarged causing changes in your urination. No new medications are indicated. Return if worse if any questions or concerns Prescriptions: No Action tiotropium-olodaterol 2.5-2.5 mcg/actuation mist 2 puff inhalation DAILY Qty: 4 2RF ascorbic acid (vitamin C) 250 mg tablet 250 mg PO DAILY famotidine 20 mg tablet 20 mg PO BEDTIME Qty: 90 2RF atorvastatin 40 mg tablet 40 mg PO DAILY Qty: 90 0RF nortriptyline 25 mg capsule 25 mg PO ONCE PM Qty: 30 3RF lisinopril 20 mg tablet 20 mg PO DAILY Qty: 30 5RF magnesium 250 mg tablet 400 mg PO DAILY acetaminophen 325 mg tablet 650 mg PO Q6H PRN (Reason: pain) Qty: 1 0RF aspirin 81 mg Capsule 81 mg PO DAILY ipratropium-albuterol 0.5 mg-3 mg(2.5 mg base)/3 mL solution for nebulization 3 ml inhalation Q6-8H PRN (Reason: shortness of breath or wheezing) Qty: 180 0RF Referrals: Miguel Ángel Bruce MD [Primary Care Provider] - Jered Verdugo MD [Physician] - Stand Alone Forms: Patient Portal/API/Survey
[2024-07-07 16:19] LABS: Add Manual Diff / Slide Review NO; Basophils Absolute Auto 0 /uL (0-100); Basophils Percent Auto 0.5 % (0-2); Eosinophils Absolute Auto 100 /uL (0-450); Eosinophils Percent Auto 2.3 % (2-4); Hematocrit 41.5 % (41-53); Hemoglobin 14.1 g/dL (13.5-17.5); Lymphocytes Absolute Auto 1600 /uL (1100-4500); Lymphocytes Percent Auto 27.7 % (25-40); Mean Corpuscular Hemoglobin 35.1 PG (26-34); Mean Corpuscular Volume 103.2 fL (80-100); Monocytes Absolute Auto 400 /uL (0-900); Monocytes Percent Auto 7.7 % (3-14); Neutrophils Absolute Auto 3600 /uL (1500-7000); Neutrophils Percent Auto 61.8 % (50-75); Platelet Count 269 X10^3/uL (150-400); Red Blood Cell Count 4.02 X10^6/uL (4.5-5.9); Red Cell Distribution Width 14.6 % (11.6-14.8); White Blood Cell Count 5.8 X10^3/uL (4.5-11.0)
[2024-07-07 16:42] LABS: Alanine Aminotransferase 78 IU/L (<50); Albumin 4.7 g/dL (3.5-5.0); Albumin Globulin Ratio 1.4 (1.0-2.8); Alkaline Phosphatase 77 U/L (38-126); Aspartate Aminotransferase 103 IU/L (17-59); BUN Creatinine Ratio 10.4 (6-22); Bilirubin Total 0.4 mg/dL (0.2-1.3); Blood Urea Nitrogen 8 mg/dL (9-20); Calcium 9.3 mg/dL (8.4-10.2); Carbon Dioxide 24 mmol/L (22-32); Chloride 104 mmol/L (98-107); Estimated Glomerular Filt Rate > 60 mL/min (>60); Globulin 3.4 g/dL (1.7-4.1); Glucose 96 mg/dL (80-110); HEMOLYSIS < 15 (0-50); Potassium 4.4 mmol/L (3.4-5.1); Sodium 141 mmol/L (137-145); Total Protein 8.1 g/dL (6.3-8.2)
[2024-07-07] MEDS: ONDANSETRON 4 MG ODT SL (18:14)
--- NOTE | 2024-07-07 18:30 | PC.NURSE ---
Patient at bedside dry heaving, heart rate is elevated to 130's, Provider Herber ordered guicho, see MAR
== END 2024-07-07 18:39 | disposition home or self-care (01) ==
PROVIDERS: Emergency Provider Emergency Medicine; PCP Family Medicine
DX: R30.0 Dysuria (principal); R39.15 Urgency of urination
CPT/HCPCS: 36415; 51798; 80053; 81003; 85025; 99283

== ENCOUNTER 2024-08-04 08:55 | Emergency (ER) | payer OTHER, SELFPAY ==
[2024-07-10 11:18] VITALS: BMI 21.4
[2024-08-04] VITALS (8 sets, daily range): BP systolic 142–187; BP diastolic 92–115; PULSE 117–139; RESP 16–30; TEMP 36.8; O2SAT 94–99; BMI 23.0
--- NOTE | 2024-08-04 09:07 | EKG_ITS ---
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
--- NOTE | 2024-08-04 09:13 | ED.SOB ---
HPI - SOB/Dyspnea General Chief Complaint: Shortness of Breath/Dyspnea Stated Complaint: Hard time breathing and weird feeling in chest Time Seen by Provider: 08/04/24 09:12 Source: patient Mode of arrival: Ambulatory Limitations: no limitations History of Present Illness HPI Narrative: Patient here with and daughter. Patient awoke this morning feeling short of breath. No chest pain. No limb swelling. Patient recently seen here for pneumonia. Patient drinks alcohol heavily and daily. Last drink last night. Does not feel like he is in withdrawals. No hallucinations no seizures. No confusion. Family feel that he is anxious. He recently lost hit both of his parents. He has not on any medications for anxiety. Patient has clear lung sounds. No chest pain. Not requiring supplemental oxygen. Patient is tachycardic Related Data Home Medications Medication Instructions Recorded Confirmed aspirin 81 mg capsule 81 mg PO DAILY 04/06/23 07/17/24 ascorbic acid (vitamin C) 250 mg 250 mg PO DAILY 04/18/23 07/17/24 tablet magnesium 250 mg tablet 400 mg PO DAILY 05/04/24 07/17/24 Previous Rx's Medication Instructions Recorded famotidine 20 mg tablet 20 mg PO BEDTIME #90 tabs 04/01/24 atorvastatin 40 mg tablet 40 mg PO DAILY #90 tabs 04/15/24 acetaminophen 325 mg tablet 650 mg (2 x 325 mg) PO Q6H PRN 05/04/24 pain #1 tab ipratropium 0.5 mg-albuterol 3 mg 3 ml inhalation Q6-8H PRN 05/11/24 (2.5 mg base)/3 mL nebulization shortness of breath or wheezing soln #180 mL nortriptyline 25 mg capsule 25 mg PO ONCE PM #30 caps 06/02/24 tiotropium 2.5 mcg-olodaterol 2.5 2 puff inhalation DAILY #4 grams 06/10/24 mcg/actuation mist for inhalation lisinopril 20 mg tablet 20 mg PO DAILY #30 tabs 06/12/24 tamsulosin 0.4 mg capsule 0.4 mg PO BEDTIME #30 caps 07/15/24 Allergies Allergy/AdvReac Type Severity Reaction Status Date / Time fluconazole Allergy Severe SWEATING, Verified 06/10/24 16:05 SOB, NAUSEA diclofenac [DICLOFENAC] Allergy Intermediate RASH ON Verified 06/10/24 16:05 FACE; LIGHTHEADEDNESS Review of Systems Review of Systems Narrative: GENERAL: Negative chills, fatigue, malaise, fever, sweats. HEENT: Negative sinus pain, ear pain, sore throat RESPIRATORY: Positive dyspnea, cough CARDIOVASCULAR: Negative chest pain, palpitations GASTROINTESTINAL: Negative nausea, vomiting, abdominal pain : Negative dysuria, frequency, hematuria MUSCULOSKELETAL: Negative muscle or bony pain SKIN: Negative rash, skin lesions NEUROLOGIC: Negative weakness, numbness PSYCH: Positive anxiety ROS Unobtainable: All systems reviewed & are unremarkable except as noted in HPI and below Patient History Medical History Alcoholism in remission Acute upper GI bleed Mixed hyperlipidemia History of kidney disease as a child (10/09/16) 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) Essential hypertension (10/09/16) Surgical History Hx of appendectomy (1977) Hx of hernia repair (1999) History of nephrectomy (1977) History of unilateral nephrectomy (10/09/16) Family History Father Congestive heart failure Diabetes mellitus COPD (chronic obstructive pulmonary disease) Mother Hypertension Diabetes mellitus Cancer Social History household members: spouse Smoking Status: Current some day smoker Tobacco: How many years used: 45 alcohol intake: current substance use type: marijuana Smoking Status: Current some day smoker tobacco type: cigarettes alcohol intake frequency: 3 or more drinks per day Alcohol type: beer Exam Narrative Exam Narrative: GENERAL: in no distress, not toxic not dyspneic HEAD: Normocephalic. EYES: Pupils equal round ENT: Mucous membranes moist. NECK: Trachea midline. CARDIOVASCULAR: Regular rate and rhythm RESPIRATORY: Clear to auscultation. Breath sounds equal bilaterally. No wheezes, rales, or rhonchi, patient is speaking full sentences no respiratory distress. Not dyspneic. GASTROINTESTINAL: Abdomen soft, non-tender EXTREMITIES: No gross deformities. BACK: No flank tenderness. NEURO: AOx4. SKIN: Warm and dry PSYCH: Patient is slightly anxious, is cooperative Initial Vital Signs Initial Vital Signs: Vital Signs Pulse Rate 139 H 08/04/24 09:01 Pulse Oximetry 98 08/04/24 09:01 Course Orders Ordered: Discontinued Medications Lorazepam (Lorazepam 2 Mg/Ml Inj) 1 mg IV NOW ONE Stop: 08/04/24 09:14 Last Admin: 08/04/24 09:37 Dose: 1 mg Documented By: DAMARI Sodium Chloride (Sodium Chloride 0.9% Flush) 50 ml IV NOW ONE Stop: 08/04/24 09:17 Last Admin: 08/04/24 09:38 Dose: 50 ml Documented By: DAMARI Vital Signs Vital signs: Vital Signs - 8 hr 08/04/24 09:06 08/04/24 09:18 Temperature 98.2 F Pulse Rate 128 H Respiratory Rate 30 H Blood Pressure 187/115 H Pulse Oximetry 98 Oxygen Delivery Method Room Air MDM - SOB/Dyspnea Lab Data 08/04/24 09:14 08/04/24 09:14 Labs: Lab Results 08/04/24 Range/Units 09:14 WBC 5.6 (4.5-11.0) X10^3/uL RBC 3.69 L (4.5-5.9) X10^6/uL Hgb 12.9 L (13.5-17.5) g/dL Hct 38.3 L (41-53) % MCV 103.8 H (80-100) fL MCH 35.0 H (26-34) PG MCHC 33.8 (30-36) % RDW 14.1 (11.6-14.8) % Plt Count 169 (150-400) X10^3/uL Neut % (Auto) 76.1 H (50-75) % Lymph % (Auto) 14.6 L (25-40) % Anderson % (Auto) 7.2 (3-14) % Eos % (Auto) 1.6 L (2-4) % Baso % (Auto) 0.5 (0-2) % Neut # (Auto) 4300 (3164-4984) /uL Lymph # (Auto) 800 L (5473-8514) /uL Anderson # (Auto) 400 (0-900) /uL Eos # (Auto) 100 (0-450) /uL Baso # (Auto) 0 (0-100) /uL PT 9.8 (9.4-12.5) SECONDS INR 0.9 (0.9-1.3) APTT 31 (25.1-36.5) SECONDS Sodium 138 (137-145) mmol/L Potassium 3.6 (3.4-5.1) mmol/L Chloride 104 (98-107) mmol/L Carbon Dioxide 20 L (22-32) mmol/L BUN 7 L (9-20) mg/dL Creatinine 0.80 (0.66-1.25) mg/dL Estimated GFR > 60 (>60) mL/min BUN/Creatinine Ratio 8.8 (6-22) Glucose 104 (80-110) mg/dL Calcium 9.8 (8.4-10.2) mg/dL Magnesium 1.4 L (1.6-2.3) mg/dL Total Bilirubin 0.6 (0.2-1.3) mg/dL AST 107 H (17-59) IU/L ALT 70 H (<50) IU/L Alkaline Phosphatase 69 (38-126) U/L Total Creatine Kinase 59 (55-170) U/L Troponin I < 0.012 (0.01-0.034) ng/mL NT-Pro-B Natriuret Pep 40 (<125) pg/mL Total Protein 7.6 (6.3-8.2) g/dL Albumin 4.4 (3.5-5.0) g/dL Globulin 3.2 (1.7-4.1) g/dL Albumin/Globulin Ratio 1.4 (1.0-2.8) Lipase 302 H (23-300) U/L Ethyl Alcohol 12 H ( - 10) mg/dL [facility] Narrative Medical decision making narrative: Patient here with and daughter. Patient awoke this morning feeling short of breath. No chest pain. No limb swelling. Patient recently seen here for pneumonia. Patient drinks alcohol heavily and daily. Last drink last night. Does not feel like he is in withdrawals. No hallucinations no seizures. No confusion. Family feel that he is anxious. He recently lost hit both of his parents. He has not on any medications for anxiety. Patient has clear lung sounds. No chest pain. Not requiring supplemental oxygen. Patient is tachycardic After history and exam, EKG CBC CMP troponin alcohol level Ativan CT chest [facility] Medical records reviewed: Recent visit here for pneumonia Differential considered: Includes but not limited to pneumonia anxiety alcohol withdrawal Lab Test results independently reviewed as above. Pertinent findings: WBC 5.6 hemoglobin 12.9 INR 0.9 sodium 138 potassium 3.6 AST 107 ALT 70 troponin less than 0.012 BNP 40, alcohol 12 Independently reviewed EKG sinus tachycardia rate 126 Imaging studies independently reviewed: CT chest. No large embolus. Clinically likely not small PEs. No infiltrates. Consultations: None indicated at this time Treatments: Ativan Re-evaluations: 10:20 a.m.. Patient feeling much better. Not short of breath. Not feeling anxious. Ativan helped him a lot. Reviewed with him and and daughter, he has been exposed to asbestos in the past. He sees primary care Dr. Bruce. He will follow up with Dr. Bruce. He does not want detox or rehab. Reviewed with him anxiolytic medication/alcohol usually not good combination, he needs to decide about alcohol cessation. At this time he has not ready to quit drinking. They did note that he transition from vodka to beer consumption in the past week. This may contribute to they anxiety. Return precautions reviewed. They desire discharge home. Patient is not in withdrawals at this time. They will follow up with Dr. Bruce for referral to Pulmonary Services for follow up. Discussion: Appropriate for discharge home. Ativan has helped patient's significantly. Symptoms likely due to anxiety and may be early withdrawals. Alcohol level noted, patient is awake alert oriented x4. No nausea or vomiting. No altered mental status. Currently not in withdrawals. 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 Patient did not have chest pain. No repeat troponin at this time. Clinically likely not pulmonary embolism, patient known to have tachycardia with visits. Patient is on lisinopril for blood pressure. Again, who will follow up with family doctor Diagnosis: Anxiety Discharge Plan Departure Patient Disposition: Home Clinical Impression: Anxiety, Alcohol abuse Instructions: DI for Alcohol Use Disorder, DI for Anxiety -- Adult Activity Restrictions/Additional Instructions: No driving operating machinery today. Please see your family doctor for re-evaluation of your lung findings on CT scan today. Asbestos measure was seen on CT imaging. Please see family doctor regarding alcohol counseling/cessation. Return if worse if any questions or concerns. Prescriptions: No Action tiotropium-olodaterol 2.5-2.5 mcg/actuation mist 2 puff inhalation DAILY Qty: 4 2RF ascorbic acid (vitamin C) 250 mg tablet 250 mg PO DAILY famotidine 20 mg tablet 20 mg PO BEDTIME Qty: 90 2RF tamsulosin 0.4 mg capsule 0.4 mg PO BEDTIME Qty: 30 3RF atorvastatin 40 mg tablet 40 mg PO DAILY Qty: 90 0RF nortriptyline 25 mg capsule 25 mg PO ONCE PM Qty: 30 3RF lisinopril 20 mg tablet 20 mg PO DAILY Qty: 30 5RF magnesium 250 mg tablet 400 mg PO DAILY acetaminophen 325 mg tablet 650 mg PO Q6H PRN (Reason: pain) Qty: 1 0RF aspirin 81 mg Capsule 81 mg PO DAILY ipratropium-albuterol 0.5 mg-3 mg(2.5 mg base)/3 mL solution for nebulization 3 ml inhalation Q6-8H PRN (Reason: shortness of breath or wheezing) Qty: 180 0RF Referrals: Miguel Ángel Bruce MD [Primary Care Provider] - Stand Alone Forms: Patient Portal/API/Survey
--- NOTE | 2024-08-04 09:16 | DI.CT.S_ITS ---
PROCEDURE: CT ANGIO CHEST PE PROTOCOL INDICATIONS: Dyspnea TECHNIQUE: After the administration of intravenous contrast, 2 mm thick sections acquired from the pulmonary apices to the posterior costophrenic angles. 3-dimensional maximum intensity projection (MIP) coronal and sagittal reformats were then acquired through the thorax. For radiation dose reduction, the following was used: automated exposure control, adjustment of mA and/or kV according to patient size. COMPARISON: [facility], CT, CT ANGIO CHEST PE PROTOCOL, 04/30/2024, 11:15. FINDINGS: Image quality: Diagnostic. Pulmonary arteries: Pulmonary arteries are normal in size, and demonstrate no intraluminal filling defects to suggest central pulmonary embolism. Distal subsegmental branches of bilateral pulmonary arteries are suboptimally opacified. Lower Neck: No enlarged lymph nodes. Thyroid: No thyroid nodules which require sonographic follow up, per consensus guidelines. Axillae: No enlarged lymph nodes. Chest Wall: Gynecomastia. Bones: No aggressive appearing bony lesions. Lungs and Pleura: No pneumothorax or pleural effusions. No consolidation or suspicious nodules. Calcified pleural plaques are seen scattered in bilateral lung sandoval. Heart: Heart size is normal. No pericardial effusion. Thoracic Vessels: No aortic aneurysm. Mediastinum and Christiane: No enlarged lymph nodes. Esophagus: No wall thickening. Small hiatal hernia. Upper Abdomen: Visualized upper abdomen solid organs and bowel loops appear normal. Moderate hepatic steatosis is seen. Right kidney is surgically absent. IMPRESSION: 1. No large central pulmonary embolus. Distal subsegmental branches of bilateral pulmonary arteries are suboptimally opacified. Small distal pulmonary emboli cannot be excluded. No thoracic aortic aneurysm or dissection. 2. Scattered calcified pleural plaques in bilateral lung sandoval suggestive of prior asbestos exposure. No focal infiltrate, pleural effusion or pneumothorax. 3. No mediastinal or hilar lymphadenopathy by size criteria. Dictated by: Marcel Beyer M.D. on 08/04/2024 at 9:39 Approved by: Marcel Beyer M.D. on 08/04/2024 at 9:45
[2024-08-04 09:24] LABS: Add Manual Diff / Slide Review NO; Basophils Absolute Auto 0 /uL (0-100); Basophils Percent Auto 0.5 % (0-2); Eosinophils Absolute Auto 100 /uL (0-450); Eosinophils Percent Auto 1.6 % (2-4); Hematocrit 38.3 % (41-53); Hemoglobin 12.9 g/dL (13.5-17.5); Lymphocytes Absolute Auto 800 /uL (1100-4500); Lymphocytes Percent Auto 14.6 % (25-40); Mean Corpuscular HGB Conc 33.8 % (30-36); Mean Corpuscular Volume 103.8 fL (80-100); Monocytes Absolute Auto 400 /uL (0-900); Monocytes Percent Auto 7.2 % (3-14); Neutrophils Absolute Auto 4300 /uL (1500-7000); Neutrophils Percent Auto 76.1 % (50-75); Platelet Count 169 X10^3/uL (150-400); Red Blood Cell Count 3.69 X10^6/uL (4.5-5.9); Red Cell Distribution Width 14.1 % (11.6-14.8); White Blood Cell Count 5.6 X10^3/uL (4.5-11.0)
[2024-08-04 09:32] LABS: INR 0.9 (0.9-1.3); Prothrombin Time 9.8 SECONDS (9.4-12.5)
[2024-08-04 09:35] LABS: PTT Partial Thromboplastin Tim 31 SECONDS (25.1-36.5)
[2024-08-04 09:36] LABS: Ethanol (ETOH) 12 mg/dL
[2024-08-04] MEDS: LORazepam 2 MG/ML INJ 1 MG IV (09:37)
[2024-08-04 09:38] LABS: Alanine Aminotransferase 70 IU/L (<50); Albumin 4.4 g/dL (3.5-5.0); Albumin Globulin Ratio 1.4 (1.0-2.8); Alkaline Phosphatase 69 U/L (38-126); Aspartate Aminotransferase 107 IU/L (17-59); BUN Creatinine Ratio 8.8 (6-22); Bilirubin Total 0.6 mg/dL (0.2-1.3); Blood Urea Nitrogen 7 mg/dL (9-20); Calcium 9.8 mg/dL (8.4-10.2); Carbon Dioxide 20 mmol/L (22-32); Chloride 104 mmol/L (98-107); Creatine Kinase 59 U/L (55-170); Estimated Glomerular Filt Rate > 60 mL/min (>60); Globulin 3.2 g/dL (1.7-4.1); Glucose 104 mg/dL (80-110); HEMOLYSIS 16 (0-50); Lipase 302 U/L (23-300); Magnesium 1.4 mg/dL (1.6-2.3); Potassium 3.6 mmol/L (3.4-5.1); Sodium 138 mmol/L (137-145); Total Protein 7.6 g/dL (6.3-8.2)
[2024-08-04] MEDS: SODIUM CHLORIDE 0.9% FLUSH 50 ML IV (09:38)
[2024-08-04 09:49] LABS: NT-proBNP (BNP-Adult 18+) 40 pg/mL (<125); Troponin I < 0.012 ng/mL (0.01-0.034)
== END 2024-08-04 10:38 | disposition home or self-care (01) ==
PROVIDERS: Emergency Provider Emergency Medicine; PCP Family Medicine
DX: F41.9 Anxiety disorder, unspecified (principal); F10.10 Alcohol abuse, uncomplicated; R00.0 Tachycardia, unspecified; I10 Essential (primary) hypertension
CPT/HCPCS: 36415; 71275; 80053; 80320; 82550; 83690; 83735; 83880; 84484; 85025; 85610; 85730; 93005; 99284; 99285; J2060; Q9967

== ENCOUNTER → 2024-08-12 09:33 | Outpatient (CLI) | payer OTHER, SELFPAY ==
[2024-07-10 11:18] VITALS: BMI 21.4
== END ==
PROVIDERS: PCP Family Medicine; Visit Provider Urology
DX: N40.1 Benign prostatic hyperplasia with lower urinary tract symptoms (principal); R35.0 Frequency of micturition; R97.20 Elevated prostate specific antigen [PSA]; R39.9 Unspecified symptoms and signs involving the genitourinary system
CPT/HCPCS: 51798; 81002; 87086; 99213

== ENCOUNTER 2024-08-26 22:00 | Emergency (ER) | payer OTHER, SELFPAY ==
[2024-07-10 11:18] VITALS: BMI 21.4
[2024-08-26 22:05] VITALS: BP 154/81; PULSE 132; RESP 18; TEMP 36.9; O2SAT 97; BMI 23.0
--- NOTE | 2024-08-26 22:17 | DI.RAD.S_ITS ---
PROCEDURE: XR CHEST 1V INDICATIONS: Shortness of breath TECHNIQUE: One view of the chest was acquired. COMPARISON: [facility], , XR CHEST 1V, 05/11/2024, 14:54. [facility], CR, XR CHEST 1V, 04/30/2024, 10:10. FINDINGS: Surgical changes and devices: None. Lungs and pleura: Lungs are clear. No pleural effusions or pneumothorax. Mediastinum: Mediastinal contours appear normal. Heart size is normal. Bones and chest wall: No suspicious bony lesions. Overlying soft tissues appear unremarkable. IMPRESSION: No acute cardiopulmonary abnormality is seen. Dictated by: Juliocesar Rae M.D. on 08/26/2024 at 22:32 Approved by: Juliocesar Rae M.D. on 08/26/2024 at 22:33
--- NOTE | 2024-08-26 22:17 | EKG_ITS ---
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
[2024-08-26 22:23] VITALS: PULSE 133; RESP 22; O2SAT 94
--- NOTE | 2024-08-26 22:25 | PC.NURSE ---
pt states he aspirated some ham that he ate earlier, pt states he ate some ham earlier went to sleep with his cpap on and woke, pt c/o burning in his throat states he feels like he has acid reflux
[2024-08-26 22:27] LABS: Add Manual Diff / Slide Review NO; Basophils Absolute Auto 0 /uL (0-100); Basophils Percent Auto 0.5 % (0-2); Eosinophils Absolute Auto 0 /uL (0-450); Eosinophils Percent Auto 0.2 % (2-4); Hematocrit 40.2 % (41-53); Hemoglobin 13.9 g/dL (13.5-17.5); Lymphocytes Absolute Auto 600 /uL (1100-4500); Lymphocytes Percent Auto 6.4 % (25-40); Mean Corpuscular HGB Conc 34.5 % (30-36); Mean Corpuscular Hemoglobin 35.6 PG (26-34); Mean Corpuscular Volume 103.4 fL (80-100); Monocytes Absolute Auto 1000 /uL (0-900); Monocytes Percent Auto 11.2 % (3-14); Neutrophils Absolute Auto 7200 /uL (1500-7000); Neutrophils Percent Auto 81.7 % (50-75); Platelet Count 166 X10^3/uL (150-400); Red Blood Cell Count 3.89 X10^6/uL (4.5-5.9); Red Cell Distribution Width 13.9 % (11.6-14.8); White Blood Cell Count 8.8 X10^3/uL (4.5-11.0)
[2024-08-26 22:31] VITALS: PULSE 132; RESP 19; O2SAT 96
[2024-08-26 22:41] LABS: INR 0.9 (0.9-1.3)
[2024-08-26 22:45] LABS: Alanine Aminotransferase 83 IU/L (<50); Albumin 4.8 g/dL (3.5-5.0); Albumin Globulin Ratio 1.5 (1.0-2.8); Alkaline Phosphatase 91 U/L (38-126); Aspartate Aminotransferase 119 IU/L (17-59); BUN Creatinine Ratio 11.1 (6-22); Bilirubin Total 0.5 mg/dL (0.2-1.3); Blood Urea Nitrogen 11 mg/dL (9-20); Calcium 10.9 mg/dL (8.4-10.2); Carbon Dioxide 24 mmol/L (22-32); Chloride 97 mmol/L (98-107); Estimated Glomerular Filt Rate > 60 mL/min (>60); Globulin 3.3 g/dL (1.7-4.1); Glucose 120 mg/dL (80-110); HEMOLYSIS < 15 (0-50); Potassium 3.8 mmol/L (3.4-5.1); Sodium 141 mmol/L (137-145); Total Protein 8.1 g/dL (6.3-8.2)
[2024-08-26 22:48] LABS: Lactate (Lactic Acid) 4.8 mmol/L (0.7-2.1)
[2024-08-26 22:56] LABS: NT-proBNP (BNP-Adult 18+) 141 pg/mL (<125); Troponin I < 0.012 ng/mL (0.01-0.034)
[2024-08-26 23:00] VITALS: PULSE 134; O2SAT 93
--- NOTE | 2024-08-26 23:28 | ED.GENADULT ---
HPI - General Adult General Chief complaint: Shortness of Breath/Dyspnea Stated complaint: sore throat, difficulty breathing Time Seen by Provider: 08/26/24 22:32 Source: patient Mode of arrival: Ambulatory History of Present Illness HPI narrative: 63-year-old gentleman with a history of COPD, alcohol use disorder, sleep apnea with CPAP, hypertension, hyperlipidemia awoke this evening noting sore throat, short of breath, he was using his CPAP. He tasted vomit and is concerned that he may have aspirated. He states that it hurts to breathe and hurts to swallow. He was slightly hypertensive and tachycardic triage. He is able to speak in complete sentences. He is coughing up dark brown sputum. Related Data Home Medications Medication Instructions Recorded Confirmed aspirin 81 mg capsule 81 mg PO DAILY 04/06/23 08/12/24 ascorbic acid (vitamin C) 250 mg 250 mg PO DAILY 04/18/23 08/12/24 tablet magnesium 250 mg tablet 400 mg PO DAILY 05/04/24 08/12/24 Previous Rx's Medication Instructions Recorded famotidine 20 mg tablet 20 mg PO BEDTIME #90 tabs 04/01/24 acetaminophen 325 mg tablet 650 mg (2 x 325 mg) PO Q6H PRN 05/04/24 pain #1 tab ipratropium 0.5 mg-albuterol 3 mg 3 ml inhalation Q6-8H PRN 05/11/24 (2.5 mg base)/3 mL nebulization shortness of breath or wheezing soln #180 mL nortriptyline 25 mg capsule 25 mg PO ONCE PM #30 caps 06/02/24 tiotropium 2.5 mcg-olodaterol 2.5 2 puff inhalation DAILY #4 grams 06/10/24 mcg/actuation mist for inhalation lisinopril 20 mg tablet 20 mg PO DAILY #30 tabs 06/12/24 atorvastatin 40 mg tablet 40 mg PO DAILY #90 tabs 08/11/24 tamsulosin 0.4 mg capsule 0.4 mg PO DAILY #90 caps 08/12/24 omeprazole 40 mg capsule,delayed 40 mg PO BID #60 caps 08/27/24 release Allergies Allergy/AdvReac Type Severity Reaction Status Date / Time fluconazole Allergy Severe SWEATING, Verified 08/12/24 09:31 SOB, NAUSEA diclofenac [DICLOFENAC] Allergy Intermediate RASH ON Verified 08/12/24 09:31 FACE; LIGHTHEADEDNESS Review of Systems Review of Systems Narrative: Pertinent positive and negative findings as per HPI Patient History Medical History Alcoholism in remission Acute upper GI bleed Mixed hyperlipidemia History of kidney disease as a child (10/09/16) 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) Essential hypertension (10/09/16) Surgical History Hx of appendectomy (1977) Hx of hernia repair (1999) History of nephrectomy (1977) History of unilateral nephrectomy (10/09/16) Family History Father Congestive heart failure Diabetes mellitus COPD (chronic obstructive pulmonary disease) Mother Hypertension Diabetes mellitus Cancer Social History marital status: household members: spouse occupational status: previously employed leisure activities: exercise Smoking Status: Current every day smoker Tobacco: How many years used: 50 alcohol intake: current substance use type: marijuana caffeine: Yes Type(s) of exercise: walking Smoking Status: Current every day smoker tobacco type: cigarettes alcohol intake frequency: 3 or more drinks per day Alcohol type: beer Exam Initial Vital Signs Initial Vital Signs: Vital Signs Temperature 98.5 F 08/26/24 22:05 Pulse Rate 132 H 08/26/24 22:05 Respiratory Rate 18 08/26/24 22:05 Blood Pressure 154/81 H 08/26/24 22:05 Pulse Oximetry 97 08/26/24 22:05 Oxygen Delivery Method Room Air 08/26/24 22:05 General: slightly pale, productive cough, he is able to speak in full sentences and not using any accessory muscles to breathe HEENT: Moist mucous membranes, normal sclera with reactive pupils, Respiratory: Lungs are clear to auscultation despite the noted cough, no wheezing no rales no rhonchi. Full and symmetrical air movement Cardiac: tachycardic but otherwiseRegular rate and rhythm no murmurs no bruits Abdomen: Soft, nontender, good bowel tones, no flank pain Skin: Warm and dry, no rashes Neurologic: Grossly neurologically intact with no obvious asymmetries or abnormalities Extremities: No trauma, well perfused Psych: Cooperative, appropriate insight and affect Course Orders Ordered: ED Orders 08/26/24 22:17 XR chest 1V Stat EKG-12 Lead Stat Measure peak expiratory flow ONCE RT Consult Eval and Treat NOW 08/26/24 22:20 Complete Blood Count AUTO DIFF Stat Comprehensive Metabolic Panel Stat Lactate (Lactic Acid) Stat NT-proBNP (BNP-Adult 18+) Stat Prothrombin Time INR Stat Troponin I Stat 08/27/24 03:41 CT angio chest PE protocol Stat Hydromorphone HCl (Hydromorphone 0.5 Mg Inj) 0.5 mg IV Q15MIN PRN PRN Reason: Pain, Last Admin: 08/27/24 00:09 Dose: 0.5 mg Documented By: MR Discontinued Medications Albuterol/Ipratropium (Albuterol/Ipratropium 3 Ml Ampul) 3 ml INH NOW ONE Stop: 08/27/24 03:04 Last Admin: 08/27/24 03:12 Dose: 3 ml Documented By: ANANTH Sodium Chloride (Normal Saline 0.9%) 1,000 mls @ 1,000 mls/hr IV BOLUS ONE Stop: 08/27/24 00:37 Last Infusion: 08/27/24 00:40 Dose: Infused Documented By: Admin: 08/26/24 23:42 Dose: 1,000 mls/hr Documented By: Sodium Chloride (Normal Saline 0.9%) 1,000 mls @ 1,000 mls/hr IV BOLUS ONE Stop: 08/27/24 02:18 Last Infusion: 08/27/24 02:37 Dose: Infused Documented By: Admin: 08/27/24 01:25 Dose: 1,000 mls/hr Documented By: Lisinopril (Lisinopril 20 Mg Tablet) 20 mg PO NOW ONE Stop: 08/27/24 03:04 Last Admin: 08/27/24 03:23 Dose: 20 mg Documented By: HUMERA Lorazepam (Lorazepam 2 Mg/Ml Inj) 2 mg IV NOW ONE Stop: 08/27/24 03:42 Last Admin: 08/27/24 03:48 Dose: 2 mg Documented By: HUMERA Ondansetron HCl (Ondansetron 4 Mg/2 Ml Inj) 4 mg IV NOW ONE Stop: 08/27/24 00:02 Last Admin: 08/27/24 00:08 Dose: 4 mg Documented By: Pantoprazole Sodium (Pantoprazole 40 Mg Vial) 40 mg IV NOW ONE Stop: 08/27/24 03:42 Last Admin: 08/27/24 03:48 Dose: 40 mg Documented By: HUMERA Vital Signs Vital signs: Vital Signs - 8 hr 08/26/24 22:05 08/26/24 22:23 08/26/24 22:31 Temperature 98.5 F Pulse Rate 132 H 133 H 132 H Respiratory Rate 18 22 19 Blood Pressure 154/81 H Pulse Oximetry 97 94 96 Oxygen Delivery Method Room Air Fraction of Inspired Oxygen 08/26/24 23:00 08/26/24 23:30 08/27/24 00:00 Temperature Pulse Rate 134 H 128 H 134 H Respiratory Rate Blood Pressure Pulse Oximetry 93 93 95 Oxygen Delivery Method Fraction of Inspired Oxygen 08/27/24 00:30 08/27/24 00:51 08/27/24 00:51 Temperature Pulse Rate 119 H 123 H Respiratory Rate Blood Pressure 142/85 H Pulse Oximetry 92 Oxygen Delivery Method Fraction of Inspired Oxygen 08/27/24 01:00 08/27/24 01:00 08/27/24 01:30 Temperature Pulse Rate 121 H 125 H Respiratory Rate Blood Pressure 143/85 H Pulse Oximetry 91 92 Oxygen Delivery Method Fraction of Inspired Oxygen 08/27/24 01:30 08/27/24 02:00 08/27/24 02:00 Temperature Pulse Rate 119 H Respiratory Rate Blood Pressure 160/100 H 171/99 H Pulse Oximetry 92 Oxygen Delivery Method Fraction of Inspired Oxygen 08/27/24 02:30 08/27/24 02:30 08/27/24 03:00 Temperature Pulse Rate 122 H Respiratory Rate Blood Pressure 156/93 H 171/109 H Pulse Oximetry 93 Oxygen Delivery Method Fraction of Inspired Oxygen 08/27/24 03:00 08/27/24 03:12 08/27/24 03:30 Temperature Pulse Rate 129 H 133 H 123 H Respiratory Rate 24 24 21 Blood Pressure Pulse Oximetry 93 99 94 Oxygen Delivery Method Room Air Fraction of Inspired Oxygen 08/27/24 03:30 Temperature Pulse Rate Respiratory Rate Blood Pressure 168/107 H Pulse Oximetry 88 L Oxygen Delivery Method Room Air Fraction of Inspired Oxygen Medical Decision Making Lab Data 08/26/24 22:20 08/26/24 22:20 Labs: Lab Results 08/26/24 08/27/24 Range/Units 22:20 00:50 WBC 8.8 (4.5-11.0) X10^3/uL RBC 3.89 L (4.5-5.9) X10^6/uL Hgb 13.9 (13.5-17.5) g/dL Hct 40.2 L (41-53) % MCV 103.4 H (80-100) fL MCH 35.6 H (26-34) PG MCHC 34.5 (30-36) % RDW 13.9 (11.6-14.8) % Plt Count 166 (150-400) X10^3/uL Neut % (Auto) 81.7 H (50-75) % Lymph % (Auto) 6.4 L (25-40) % [place] % (Auto) 11.2 (3-14) % Eos % (Auto) 0.2 L (2-4) % Baso % (Auto) 0.5 (0-2) % Neut # (Auto) 7200 H (6700-2547) /uL Lymph # (Auto) 600 L (7015-0398) /uL [place] # (Auto) 1000 H (0-900) /uL Eos # (Auto) 0 (0-450) /uL Baso # (Auto) 0 (0-100) /uL PT 10.0 (9.4-12.5) SECONDS INR 0.9 (0.9-1.3) Sodium 141 (137-145) mmol/L Potassium 3.8 (3.4-5.1) mmol/L Chloride 97 L (98-107) mmol/L Carbon Dioxide 24 (22-32) mmol/L BUN 11 (9-20) mg/dL Creatinine 0.99 (0.66-1.25) mg/dL Estimated GFR > 60 (>60) mL/min BUN/Creatinine Ratio 11.1 (6-22) Glucose 120 H (80-110) mg/dL Lactate 4.8 H* 4.3 H* (0.7-2.1) mmol/L Calcium 10.9 H (8.4-10.2) mg/dL Total Bilirubin 0.5 (0.2-1.3) mg/dL AST 119 H (17-59) IU/L ALT 83 H (<50) IU/L Alkaline Phosphatase 91 (38-126) U/L Troponin I < 0.012 (0.01-0.034) ng/mL NT-Pro-B Natriuret Pep 141 H (<125) pg/mL Total Protein 8.1 (6.3-8.2) g/dL Albumin 4.8 (3.5-5.0) g/dL Globulin 3.3 (1.7-4.1) g/dL Albumin/Globulin Ratio 1.5 (1.0-2.8) MDM Narrative Medical decision making narrative: CC:Woke up coughing, short of breath, tasting vomit in the back that is throat he had a CPAP on he is concerned he aspirated Complicating co-morbidities: alcohol use disorder, sleep apnea, hypertension hyperlipidemia Data collected from: patient Medical records reviewed: ER notes from August 04, July 07 May 27 and May 11 are all reviewed Differential considered: aspiration, sepsis, pneumonia, alcohol intoxication with aspiration Exam documented above, pertinent findings include: Lab Test results independently reviewed as above. Pertinent findings: CBC does not show leukocytosis. No significant anemia chemistries are notable for appropriate creatinine, glucose minimally elevated at 120. Calcium slightly elevated at 10.9, ALT and AST are minimally elevated but seemed to be close to his most recent visit initial troponin is undetectable proBNP is unremarkable lactic acid is elevated at 4.8 alcohol level is low at 12 Repeat lactate after 1 L of fluid is down to 4.3. Independently reviewed EKG: sinus tachycardia at 130. No ischemic changes Imaging studies independently reviewed: chest x-ray is unremarkable, no obvious infiltrate to suggest significant aspiration PE study of the chest is done shows no evidence of pulmonary embolism there is a question of congestive heart failure how ever BNP is not elevated and this does not fit clinically. It is also mentioned of extensive concentric wall thickening throughout the esophagus with the adjacent inflammatory stranding no pneumomediastinum. This could be extensive diffuse esophagitis however neoplastic process can not be excluded Treatments: 2 L of fluid, pantoprazole, IV Ativan Re-evaluations: After a L of fluid patient still does not feel the need to void. With the nausea medicine his stomach is no longer hurting. His cough has resolved. He notes that he typically is tachycardic and does not feel like his heart rate right now at 125 as abnormal. He does not feel the need to void. His lactic acid is only gone down slightly. There was no fever and I have a low suspicion for infection /sepsis as a cause of his elevated lactic acid. I suspect that he has still moderately dehydrated. A 2 L of fluid is given. Discussion: 63-year-old gentleman awakened from sleep the taste of emesis in the back of his mouth CPAP in place concerned that he may have aspirated with significant coughing for approximately 2 hours after arrival. He seems to have coughed up all of the debris that he may have in fact aspirated and is breathing much more comfortably. Initial lactic acid was elevated, he has been given 2 L of fluid and finally now needs to spontaneously void. There was no sign of acute infection at this time and I believe there is no evidence of sepsis. With the fluids his heart rate has come down. I suspect that he had small amount of aspiration perhaps even mostly gastric fluid which is why he was having such prolific coughing but no significant sputum or debris being produced. There was no evidence of acute coronary syndrome, congestive heart failure, other sign of infection. Chest x-ray is unremarkable. initially patient's he more comfortable, now he is again complaining of increasing coughing, dyspnea, he remains tachycardic, his blood pressure is increasing. Possibility of pulmonary embolism is entertained in his CT scan of the chest will be ordered. We will also be more helpful to fully evaluate potential for significant aspiration not seen on chest x-ray. Possibility of mild alcohol withdrawal is also entertained. The you stomach burning we will give him IV pantoprazole and will also given 2 mg of IV Ativan to see if this influences his blood pressure heart rate On final re-evaluation, he remains in a sinus tachycardia, the pantoprazole seems to have helped with small amount of reflux. His blood pressures come down nicely after the Ativan. Discussed concerns regarding the concentric wall thickening throughout the esophagus. Recommended follow up with his primary care physician and probable endoscopy. We will give him a prescription for omeprazole. I suspect that the episode this evening was in fact acid reflux getting into his trachea causing significant coughing and aspiration type symptoms. There was no evidence of pneumonia, no evidence of sepsis. No coronary syndrome. Patient is safe for discharge Discharge Plan Departure Patient Disposition: Home Clinical Impression: Aspiration into main bronchus, Regular sinus tachycardia Acid reflux Qualifiers: Esophagitis presence: with esophagitis Esophagitis bleeding: without hemorrhage Qualified Code(s): K21.00 - Gastro-esophageal reflux disease with esophagitis, without bleeding Activity Restrictions/Additional Instructions: Thank you for coming in today After being here a number of hours, I think that this episode was stomach acid that got into the top part of your trachea. This cause the severe coughing and difficulty with breathing. There does not appear to be any type of pneumonia, you have been given fluid which did not influence your heart rate. It remains in a sinus tachycardia, relatively high throughout your entire stay Your blood pressure is trending down by the time you are discharged I ended up doing a CT scan of your chest to make sure that you did not have a blood clot or other findings in your lungs. What it did show was a very inflamed esophagus so much so that you would likely benefit from seeing a stomach specialist/account adjuster and having an upper endoscopy to make sure that there is no cancer developing because of all of your reflux. Because of all of the reflux/heartburn I am going to have you begin taking omeprazole, stomach acid medication, 40 mg twice a day for 2 weeks and then 40 mg daily for 2 weeks. You do need to review this with your primary care physician If you feel that you are getting worse or have new symptoms please return to the ER Prescriptions: New omeprazole 40 mg capsule,delayed release(DR/EC) 40 mg PO BID Qty: 60 0RF No Action tiotropium-olodaterol 2.5-2.5 mcg/actuation mist 2 puff inhalation DAILY Qty: 4 2RF ascorbic acid (vitamin C) 250 mg tablet 250 mg PO DAILY famotidine 20 mg tablet 20 mg PO BEDTIME Qty: 90 2RF nortriptyline 25 mg capsule 25 mg PO ONCE PM Qty: 30 3RF lisinopril 20 mg tablet 20 mg PO DAILY Qty: 30 5RF atorvastatin 40 mg tablet 40 mg PO DAILY Qty: 90 0RF magnesium 250 mg tablet 400 mg PO DAILY acetaminophen 325 mg tablet 650 mg PO Q6H PRN (Reason: pain) Qty: 1 0RF aspirin 81 mg Capsule 81 mg PO DAILY ipratropium-albuterol 0.5 mg-3 mg(2.5 mg base)/3 mL solution for nebulization 3 ml inhalation Q6-8H PRN (Reason: shortness of breath or wheezing) Qty: 180 0RF tamsulosin 0.4 mg capsule 0.4 mg PO DAILY Qty: 90 3RF Referrals: Miguel Ángel Bruce MD [Primary Care Provider] - Stand Alone Forms: Patient Portal/API/Survey
[2024-08-26 23:30] VITALS: PULSE 128; O2SAT 93
[2024-08-26] MEDS: SODIUM CHLORIDE 0.9% 1,000 ML 1000 ML IV (23:42)
[2024-08-26 23:59] LABS: Reflexed Lactate in 2 Hours Y
[2024-08-27] VITALS (13 sets, daily range): BP systolic 142–171; BP diastolic 85–109; PULSE 119–134; RESP 17–24; O2SAT 88–99
[2024-08-27] MEDS: ONDANSETRON 4 MG/2 ML INJ IV (00:08)
[2024-08-27] MEDS: HYDROMORPHONE 0.5 MG INJ IV (00:09)
[2024-08-27 01:18] LABS: Lactate 2HR (Lactic Acid Rflx) 4.3 mmol/L (0.7-2.1)
[2024-08-27] MEDS: SODIUM CHLORIDE 0.9% 1,000 ML 1000 ML IV (01:25)
[2024-08-27] MEDS: ALBUTEROL/IPRATROPIUM 3 ML AMPUL INH (03:12)
[2024-08-27] MEDS: lisinopriL 20 MG TABLET PO (03:23)
--- NOTE | 2024-08-27 03:41 | DI.CT.S_ITS ---
PROCEDURE: CT ANGIO CHEST PE PROTOCOL INDICATIONS: persistent tachycardia and dyspnea TECHNIQUE: After the administration of intravenous contrast, 2 mm thick sections acquired from the pulmonary apices to the posterior costophrenic angles. 3-dimensional maximum intensity projection (MIP) coronal and sagittal reformats were then acquired through the thorax. For radiation dose reduction, the following was used: automated exposure control, adjustment of mA and/or kV according to patient size. COMPARISON: [facility], CT, CT ANGIO CHEST PE PROTOCOL, 08/04/2024, 9:19. FINDINGS: Image quality: Diagnostic. Pulmonary arteries: Pulmonary arteries are normal in size, and demonstrate no intraluminal filling defects to suggest central pulmonary embolism. Lower Neck: No enlarged lymph nodes. Thyroid: No thyroid nodules which require sonographic follow up, per consensus guidelines. Axillae: No enlarged lymph nodes. Chest Wall: Unremarkable. Bones: Unremarkable. Lungs and Pleura: There is bibasilar paraseptal thickening which was not present on the previous study. Is a small right pleural effusion and minimal left pleural effusion. There is compressive right basilar atelectasis, minimal. There are calcified pleural plaques consistent with remote asbestos exposure. Findings suggest very mild congestive heart failure. Heart: Heart size is normal. No pericardial effusion. Thoracic Vessels: No aortic aneurysm. Mediastinum and Christiane: No enlarged lymph nodes. Esophagus: Short interval development of extensive diffuse esophageal wall thickening throughout the esophagus. This was not present on the previous study from 23 days ago. Upper Abdomen: At least moderate diffuse hepatic steatosis. This is as before. IMPRESSION: 1. No acute pulmonary emboli. 2. Findings suggest mild congestive heart failure. 3. Development of extensive changes of diffuse esophagitis. 4. At least moderate diffuse hepatic steatosis. 5. Remote asbestos exposure. Comment: Final report is concordant with preliminary interpretation provided by [facility]. Comment: Quite impressive diffuse esophagitis and mild congestive heart failure was discussed with Dr. Smith at the time of study dictation on 08/27/2024 at 0701 hours. Dictated by: Prasad Katz M.D. on 08/27/2024 at 6:54 Approved by: Prasad Katz M.D. on 08/27/2024 at 7:09
[2024-08-27] MEDS: PANTOPRAZOLE 40 MG VIAL IV (03:48)
[2024-08-27] MEDS: LORazepam 2 MG/ML INJ IV (03:48)
== END 2024-08-27 05:23 | disposition home or self-care (01) ==
PROVIDERS: Emergency Provider Emergency Medicine; PCP Family Medicine
DX: K21.00 Gastro-esophageal reflux disease with esophagitis, without bleeding (principal); R00.0 Tachycardia, unspecified; T17.5 Foreign body in bronchus; R06.02 Shortness of breath; I10 Essential (primary) hypertension; F17.210 Nicotine dependence, cigarettes, uncomplicated
CPT/HCPCS: 36415; 71045; 71275; 80053; 83605; 83880; 84484; 85025; 85610; 93005; 94640; 96361; 96374; 96375; 99284; 99285; J1171; J2060; J2405; J2470; Q9967

== ENCOUNTER → 2024-09-02 15:05 | Outpatient (CLI) | payer OTHER, SELFPAY ==
[2024-07-10 11:18] VITALS: BMI 21.4
== END ==
LOC: CAR 15:06
PROVIDERS: PCP Family Medicine; Referring Provider Family Medicine; Visit Provider Family Medicine
DX: R00.0 Tachycardia, unspecified (principal)
CPT/HCPCS: 93246

== ENCOUNTER 2024-09-18 18:13 | Inpatient (IN) | payer OTHER, SELFPAY ==
[2024-07-10 11:18] VITALS: BMI 21.4
[2024-09-18] VITALS (13 sets, daily range): BP systolic 174–189; BP diastolic 98–118; PULSE 118–135; RESP 19–33; TEMP 36.2–36.4; O2SAT 91–100; BMI 23.0; BMI 22.4
--- NOTE | 2024-09-18 18:22 | DI.RAD.S_ITS ---
PROCEDURE: XR CHEST 1V INDICATIONS: chest pain TECHNIQUE: One view of the chest was acquired. COMPARISON: [facility], CR, XR CHEST 1V, 08/26/2024, 22:12. [facility], CR, XR CHEST 1V, 05/11/2024, 14:54. FINDINGS AND IMPRESSION: No dense airspace disease or pleural effusion on this single view study. Normal heart size. Degenerative osseous changes. Dictated by: Justo Meeks M.D. on 09/18/2024 at 19:28 Approved by: Justo Meeks M.D. on 09/18/2024 at 19:28
--- NOTE | 2024-09-18 18:28 | EKG_ITS ---
[id number], [place] [address] Test Date: 2024-09-18 Pat Name: Donavan Lizama Department: Room: Gender: Male Men'S Garment [employer]: GINGER : 1960 Requested By: Order Number: [id number] Reading MD: Josue Ramon MD Measurements Intervals [place] Rate: 131 P: 50 IA: 180 QRS: 24 QRSD: 88 T: 75 QT: 288 QTc: 425 Interpretive Statements Sinus tachycardia Nonspecific T wave abnormality Electronically Signed On 09-20-2024 14:59:12 PDT by Josue Ramon MD
--- NOTE | 2024-09-18 18:45 | ED_ITS ---
HPI - Chest Pain General Chief Complaint: Chest Pain Stated Complaint: vomiting, sob Time Seen by Provider: 09/18/24 18:34 Source: patient Mode of arrival: Ambulatory Limitations: no limitations History of Present Illness HPI narrative: this is a 64-year-old male with a history of nonspecific tachycardia, COPD, alcoholism hypertension and hyperlipidemia. He says about an hour and a half prior to arrival he woke up feeling short of breath with some tightness in his chest. He has not had fevers or a cough. He vomited but says that this is not unusual for him. He has an everyday drinker, last use alcohol last night about midnight, says that he is thinking about trying to stop drinking. He has not presently nauseated does not have abdominal pain has not had any recent immobilizations. He is accompanied by his . Patient and his report that he is commonly tachycardic Related Data Home Medications Medication Instructions Recorded Confirmed aspirin 81 mg capsule 81 mg PO DAILY 04/06/23 08/27/24 ascorbic acid (vitamin C) 250 mg 250 mg PO DAILY 04/18/23 08/27/24 tablet magnesium 250 mg tablet 400 mg PO DAILY 05/04/24 08/27/24 Previous Rx's Medication Instructions Recorded famotidine 20 mg tablet 20 mg PO BEDTIME #90 tabs 04/01/24 acetaminophen 325 mg tablet 650 mg (2 x 325 mg) PO Q6H PRN 05/04/24 pain #1 tab ipratropium 0.5 mg-albuterol 3 mg 3 ml inhalation Q6-8H PRN 05/11/24 (2.5 mg base)/3 mL nebulization shortness of breath or wheezing soln #180 mL nortriptyline 25 mg capsule 25 mg PO ONCE PM #30 caps 06/02/24 lisinopril 20 mg tablet 20 mg PO DAILY #30 tabs 06/12/24 atorvastatin 40 mg tablet 40 mg PO DAILY #90 tabs 08/11/24 tamsulosin 0.4 mg capsule 0.4 mg PO DAILY #90 caps 08/12/24 omeprazole 40 mg capsule,delayed 40 mg PO BID #60 caps 08/27/24 release tiotropium 2.5 mcg-olodaterol 2.5 2 puff inhalation QPM #4 grams 09/16/24 mcg/actuation mist for inhalation Allergies Allergy/AdvReac Type Severity Reaction Status Date / Time fluconazole Allergy Severe SWEATING, Verified 08/12/24 09:31 SOB, NAUSEA diclofenac [DICLOFENAC] Allergy Intermediate RASH ON Verified 08/12/24 09:31 FACE; LIGHTHEADEDNESS Patient History Medical History Alcoholism in remission Acute upper GI bleed Mixed hyperlipidemia History of kidney disease as a child (10/09/16) 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) Essential hypertension (10/09/16) Surgical History Hx of appendectomy (1977) Hx of hernia repair (1999) History of nephrectomy (1977) History of unilateral nephrectomy (10/09/16) Family History Father Congestive heart failure Diabetes mellitus COPD (chronic obstructive pulmonary disease) Mother Hypertension Diabetes mellitus Cancer Social History marital status: household members: spouse occupational status: previously employed leisure activities: exercise Smoking Status: Current every day smoker Tobacco: How many years used: 50 alcohol intake: current substance use type: marijuana caffeine: Yes Type(s) of exercise: walking Smoking Status: Current every day smoker tobacco type: cigarettes alcohol intake frequency: 3 or more drinks per day Alcohol type: beer and hard liquor Exam Narrative Exam Narrative: thin male, fully oriented in no distress tachycardic no tremors Initial Vital Signs Initial Vital Signs: Vital Signs Temperature 97.6 F 09/18/24 18:16 Pulse Rate 135 H 09/18/24 18:16 Respiratory Rate 22 09/18/24 18:16 Blood Pressure 183/98 H 09/18/24 18:16 Pulse Oximetry 100 09/18/24 18:16 Oxygen Delivery Method Room Air 09/18/24 18:16 HENMT HENSD Other: normocephalic atraumatic Resp Other: no respiratory distress, speaking in full sentences equal breath Cardio Other: regular rhythm and rate tachycardic without murmur rub or gallop GI Other: normal bowel sounds soft and nontender Skin Other: warm and dry Neuro Other: alert fully oriented without tremor Course Orders Ordered: ED Orders 09/18/24 18:22 XR chest 1V Stat EKG-12 Lead Stat 09/18/24 18:40 Complete Blood Count AUTO DIFF Stat Comprehensive Metabolic Panel Stat D Dimer Stat ETOH [Ethanol (ETOH)] Stat Lipase Stat Magnesium Stat NT-proBNP (BNP-Adult 18+) Stat PTT Partial Thromboplastin Jose Stat Prothrombin Time INR Stat TSH [Thyroid Stimulating Hormone] Stat Troponin & CK Cardiac Panel Stat 09/18/24 20:06 CT abdomen pelvis w con Stat CT angio chest PE protocol Stat Magnesium Sulfate (Magnesium Sulfate) 4 gm in 100 mls @ 25 mls/hr IV NOW ONE Stop: 09/19/24 00:05 Last Infusion: 09/18/24 21:11 Dose: Infused Documented By: HUMERA Co-signed By: HELENA Admin: 09/18/24 20:30 Dose: 25 mls/hr Documented By: HELENA Co-signed By: HUMERA Discontinued Medications Aspirin (Aspirin 81 Mg Chew Tab) 324 mg PO NOW ONE Stop: 09/18/24 18:23 Last Admin: 09/18/24 18:45 Dose: Not Given Documented By: HELENA Sodium Chloride (Normal Saline 0.9%) 1,000 mls @ 1,000 mls/hr IV BOLUS ONE Stop: 09/18/24 19:42 Last Infusion: 09/18/24 18:55 Dose: Infused Documented By: Admin: 09/18/24 18:55 Dose: 1,000 mls/hr Documented By: HELENA Sodium Chloride (Normal Saline 0.9%) 1,000 mls @ 1,000 mls/hr IV BOLUS ONE Stop: 09/18/24 21:05 Last Infusion: 09/18/24 21:14 Dose: Infused Documented By: Admin: 09/18/24 20:30 Dose: 1,000 mls/hr Documented By: HELENA Lorazepam (Lorazepam 2 Mg/Ml Inj) 2 mg IV NOW ONE Stop: 09/18/24 18:44 Last Admin: 09/18/24 18:54 Dose: 2 mg Documented By: HELENA Ondansetron HCl (Ondansetron 4 Mg/2 Ml Inj) 4 mg IV NOW ONE Stop: 09/18/24 21:32 Consultations Consultation #1: Case discussed with Dr. Delong at 9:50 p.m.. He accepts the admission Vital Signs Vital signs: Vital Signs - 8 hr 09/18/24 18:16 09/18/24 18:45 Temperature 97.6 F Pulse Rate 135 H 134 H Respiratory Rate 22 20 Blood Pressure 183/98 H Pulse Oximetry 100 97 Oxygen Delivery Method Room Air MDM - Chest Pain Lab Data 09/18/24 18:40 09/18/24 18:40 Labs: Lab Results 09/18/24 Range/Units 18:40 WBC 10.8 (4.5-11.0) X10^3/uL RBC 3.95 L (4.5-5.9) X10^6/uL Hgb 14.0 (13.5-17.5) g/dL Hct 41.1 (41-53) % MCV 104.1 H (80-100) fL MCH 35.4 H (26-34) PG MCHC 34.0 (30-36) % RDW 14.0 (11.6-14.8) % Plt Count 226 (150-400) X10^3/uL Neut % (Auto) 76.3 H (50-75) % Lymph % (Auto) 12.5 L (25-40) % Payne % (Auto) 10.6 (3-14) % Eos % (Auto) 0.1 L (2-4) % Baso % (Auto) 0.5 (0-2) % Neut # (Auto) 8200 H (1485-5822) /uL Lymph # (Auto) 1400 (3835-5897) /uL Payne # (Auto) 1200 H (0-900) /uL Eos # (Auto) 0 (0-450) /uL Baso # (Auto) 100 (0-100) /uL PT 10.3 (9.4-12.5) SECONDS INR 0.9 (0.9-1.3) APTT 28 (25.1-36.5) SECONDS D-Dimer 4098 H (<500) ng/ml Sodium 140 (137-145) mmol/L Potassium 3.7 (3.4-5.1) mmol/L Chloride 97 L (98-107) mmol/L Carbon Dioxide 29 (22-32) mmol/L BUN 12 (9-20) mg/dL Creatinine 0.96 (0.66-1.25) mg/dL Estimated GFR > 60 (>60) mL/min BUN/Creatinine Ratio 12.5 (6-22) Glucose 124 H (80-110) mg/dL Calcium 14.5 H* (8.4-10.2) mg/dL Magnesium 1.1 L (1.6-2.3) mg/dL Total Bilirubin 0.8 (0.2-1.3) mg/dL AST 123 H (17-59) IU/L ALT 88 H (<50) IU/L Alkaline Phosphatase 85 (38-126) U/L Total Creatine Kinase 54 L (55-170) U/L Troponin I < 0.012 (0.01-0.034) ng/mL NT-Pro-B Natriuret Pep 70 (<125) pg/mL Total Protein 8.4 H (6.3-8.2) g/dL Albumin 4.8 (3.5-5.0) g/dL Globulin 3.6 (1.7-4.1) g/dL Albumin/Globulin Ratio 1.3 (1.0-2.8) Lipase 1782 H (23-300) U/L TSH 4.11 (0.47-4.68) uIU/mL Ethyl Alcohol 24 H ( - 10) mg/dL Imaging Data CT scan - abdomen/pelvis: My Impression: independent review CT abdomen and pelvis, inflammatory changes in the pancreas consistent with pancreatitis Radiologist's Impression: [place] [address] CT Scan Report Signed Patient: Donavan Lizama MR#: [id number] : 1960 Acct:[id number] Age/Sex: 64 / M Date of Service: 09/18/24 Loc: ED Accession Number: [id number] Procedure: CT abdomen pelvis w con Ordering Provider: Allan Peña MD PROCEDURE: CT ABDOMEN PELVIS W CON INDICATIONS: pancreatitis TECHNIQUE: After the administration of intravenous contrast, axial sections acquired from the lung bases to the pubic symphysis. Coronal and sagittal reformats were performed. For radiation dose reduction, the following was used: automated exposure control, adjustment of mA and/or kV according to patient size. COMPARISON: None. FINDINGS: Image quality: Diagnostic. Lower Chest: Significant distal esophageal thickening. ABDOMEN: Liver: No solid mass. Significant steatosis. Gallbladder: No radiopaque gallstones or wall thickening. Biliary ducts: No biliary dilation. Inflammatory change of mild edema is present in the pancreatic head/uncinate process. No organized fluid collection. Pancreas: No ductal dilation. Spleen: Size is within normal limits. Adrenal Glands: No adrenal nodules. Kidneys and Ureters: No hydronephrosis. No solid mass. No complex renal cystic lesion which requires follow up. Stomach and Bowel: Normal colonic caliber, without significant wall thickening. Scattered diverticula without inflammation. Peritoneum: No abnormal intraperitoneal fluid. No free air. Ventral Wall: No significant ventral hernia. Abdominal Nodes: No retroperitoneal or mesenteric adenopathy by size criteria. Vessels: Aorta and inferior vena cava are normal in size. PELVIS: Pelvic Organs: Prostate gland is enlarged. Bladder: No bladder wall thickening, accounting for underdistention. Pelvic Nodes: No enlarged lymph nodes. Miscellaneous: No inguinal hernias are seen. Bones: Scattered punctate areas of sclerosis most prominent in the left inferior pubic ramus. IMPRESSION: Pancreatic head/uncinate process edema with peripancreatic inflammatory change most consistent with pancreatitis. No organized fluid collection to suggest phlegmon. Distal esophageal thickening. Please see CT chest report for further details. Scattered areas of sclerosis overall nonspecific. However, recommend correlation to any known malignancy as metastatic disease cannot be excluded. Prostate hypertrophy. Dictated by: Natacha Jalloh M.D. on 09/18/2024 at 20:46 Approved by: Natacha Jalloh M.D. on 09/18/2024 at 20:49 CT scan - chest: My Impression: independent review CT chest, no pulmonary embolism no infiltrate Radiologist's Impression: [address] [address] [address] Scan Report Signed Patient: Donavan Lizama MR#: [id number] : 1960 Acct:[id number] Age/Sex: 64 / M Date of Service: 09/18/24 Loc: ED Accession Number: [id number] Procedure: CT angio chest PE protocol Ordering Provider: Allan Peña MD PROCEDURE: CT ANGIO CHEST PE PROTOCOL INDICATIONS: dyspnea PE suspected TECHNIQUE: After the administration of intravenous contrast, 2 mm thick sections acquired from the pulmonary apices to the posterior costophrenic angles. 3-dimensional maximum intensity projection (MIP) coronal and sagittal reformats were then acquired through the thorax. For radiation dose reduction, the following was used: automated exposure control, adjustment of mA and/or kV according to patient size. COMPARISON: [facility], CT, CT ANGIO CHEST PE PROTOCOL, 08/27/2024, 4:01. FINDINGS: Image quality: Diagnostic. Pulmonary arteries: Pulmonary arteries are normal in size, and demonstrate no intraluminal filling defects to suggest central pulmonary embolism. Lower Neck: No enlarged lymph nodes. Thyroid: No thyroid nodules which require sonographic follow up, per consensus guidelines. Axillae: No enlarged lymph nodes. Chest Wall: Unremarkable. Bones: Unremarkable. Lungs and Pleura: No pneumothorax or pleural effusions. No consolidation or suspicious nodules. calcified pleural plaques. Heart: Heart size is normal. No pericardial effusion. Thoracic Vessels: No aortic aneurysm. Mediastinum and Christiane: No enlarged lymph nodes. Esophagus: Diffuse esophageal thickening most prominent in the mid and distal portion, with marked luminal narrowing. Hiatal hernia. Overall appearance is unchanged. Upper Abdomen: Diffuse hepatic steatosis. Otherwise visualized upper abdomen solid organs and bowel loops appear normal. IMPRESSION: No pulmonary embolus. Lungs are clear. Hepatic steatosis. Diffuse esophageal thickening particularly in the distal portion similar compared to prior exam although progressive overall. While this could represent significant esophagitis, further evaluation with upper GI or endoscopy is recommended to exclude presence of underlying mass lesion. Dictated by: Natacha Jalloh M.D. on 09/18/2024 at 20:41 Approved by: Natacha Jalloh M.D. on 09/18/2024 at 20:46 ECG Data Interpretation: ECG shows sinus tachycardia at 1:[address] segment changes no previous infarction MDM Narrative Medical decision making narrative: 64-year-old male active alcohol abuse presenting with an episode of shortness of breath. He is tachycardic on arrival was also had some vomiting. Diagnostic considerations included pulmonary embolism, alcohol withdrawal, pneumonia, pancreatitis, acute coronary syndrome, cholecystitis. Workup is remarkable for elevated lipase and findings of acute pancreatitis on CT. He may be acutely withdrawing from alcohol but at present is not tremulous and has an alcohol level at the time he is seen. He was additionally noted to have hypercalcemia and hypomagnesemia. IV fluids were started for management of the hypercalcemia. He was started on IV magnesium. He received antiemetics. Patient will be admitted to the hospitalist service. Discharge Plan Departure Patient Disposition: Admitted As Inpatient Clinical Impression: Hypomagnesemia, Hypercalcemia Pancreatitis Qualifiers: Chronicity: acute Pancreatitis type: alcohol induced Acute pancreatitis complication: no infection or necrosis Qualified Code(s): K85.20 - Alcohol induced acute pancreatitis without necrosis or infection
[2024-09-18 18:50] LABS: Add Manual Diff / Slide Review NO; Basophils Absolute Auto 100 /uL (0-100); Basophils Percent Auto 0.5 % (0-2); Eosinophils Absolute Auto 0 /uL (0-450); Eosinophils Percent Auto 0.1 % (2-4); Hematocrit 41.1 % (41-53); Lymphocytes Absolute Auto 1400 /uL (1100-4500); Lymphocytes Percent Auto 12.5 % (25-40); Mean Corpuscular Hemoglobin 35.4 PG (26-34); Mean Corpuscular Volume 104.1 fL (80-100); Monocytes Absolute Auto 1200 /uL (0-900); Monocytes Percent Auto 10.6 % (3-14); Neutrophils Absolute Auto 8200 /uL (1500-7000); Neutrophils Percent Auto 76.3 % (50-75); Platelet Count 226 X10^3/uL (150-400); Red Blood Cell Count 3.95 X10^6/uL (4.5-5.9); White Blood Cell Count 10.8 X10^3/uL (4.5-11.0)
[2024-09-18] MEDS: LORazepam 2 MG/ML INJ IV ×2 (18:54→23:41)
[2024-09-18] MEDS: SODIUM CHLORIDE 0.9% 1,000 ML 1000 ML IV ×2 (18:55→20:30)
[2024-09-18 18:59] LABS: INR 0.9 (0.9-1.3); Prothrombin Time 10.3 SECONDS (9.4-12.5)
[2024-09-18 19:01] LABS: PTT Partial Thromboplastin Tim 28 SECONDS (25.1-36.5)
[2024-09-18 19:02] LABS: Alanine Aminotransferase 88 IU/L (<50); Albumin 4.8 g/dL (3.5-5.0); Albumin Globulin Ratio 1.3 (1.0-2.8); Alkaline Phosphatase 85 U/L (38-126); Aspartate Aminotransferase 123 IU/L (17-59); BUN Creatinine Ratio 12.5 (6-22); Bilirubin Total 0.8 mg/dL (0.2-1.3); Blood Urea Nitrogen 12 mg/dL (9-20); Carbon Dioxide 29 mmol/L (22-32); Chloride 97 mmol/L (98-107); Creatine Kinase 54 U/L (55-170); Estimated Glomerular Filt Rate > 60 mL/min (>60); Globulin 3.6 g/dL (1.7-4.1); Glucose 124 mg/dL (80-110); HEMOLYSIS 19 (0-50); Lipase 1782 U/L (23-300); Magnesium 1.1 mg/dL (1.6-2.3); Potassium 3.7 mmol/L (3.4-5.1); Sodium 140 mmol/L (137-145); Total Protein 8.4 g/dL (6.3-8.2)
[2024-09-18 19:09] LABS: Ethanol (ETOH) 24 mg/dL
[2024-09-18 19:11] LABS: Calcium 14.5 mg/dL (8.4-10.2)
[2024-09-18 19:13] LABS: NT-proBNP (BNP-Adult 18+) 70 pg/mL (<125); Troponin I < 0.012 ng/mL (0.01-0.034)
[2024-09-18 19:20] LABS: D Dimer 4098 ng/ml (<500)
[2024-09-18 19:41] LABS: Thyroid Stimulating Hormone 4.11 uIU/mL (0.47-4.68)
--- NOTE | 2024-09-18 20:06 | DI.CT.S_ITS ---
PROCEDURE: CT ABDOMEN PELVIS W CON INDICATIONS: pancreatitis TECHNIQUE: After the administration of intravenous contrast, axial sections acquired from the lung bases to the pubic symphysis. Coronal and sagittal reformats were performed. For radiation dose reduction, the following was used: automated exposure control, adjustment of mA and/or kV according to patient size. COMPARISON: None. FINDINGS: Image quality: Diagnostic. Lower Chest: Significant distal esophageal thickening. ABDOMEN: Liver: No solid mass. Significant steatosis. Gallbladder: No radiopaque gallstones or wall thickening. Biliary ducts: No biliary dilation. Inflammatory change of mild edema is present in the pancreatic head/uncinate process. No organized fluid collection. Pancreas: No ductal dilation. Spleen: Size is within normal limits. Adrenal Glands: No adrenal nodules. Kidneys and Ureters: No hydronephrosis. No solid mass. No complex renal cystic lesion which requires follow up. Stomach and Bowel: Normal colonic caliber, without significant wall thickening. Scattered diverticula without inflammation. Peritoneum: No abnormal intraperitoneal fluid. No free air. Ventral Wall: No significant ventral hernia. Abdominal Nodes: No retroperitoneal or mesenteric adenopathy by size criteria. Vessels: Aorta and inferior vena cava are normal in size. PELVIS: Pelvic Organs: Prostate gland is enlarged. Bladder: No bladder wall thickening, accounting for underdistention. Pelvic Nodes: No enlarged lymph nodes. Miscellaneous: No inguinal hernias are seen. Bones: Scattered punctate areas of sclerosis most prominent in the left inferior pubic ramus. IMPRESSION: Pancreatic head/uncinate process edema with peripancreatic inflammatory change most consistent with pancreatitis. No organized fluid collection to suggest phlegmon. Distal esophageal thickening. Please see CT chest report for further details. Scattered areas of sclerosis overall nonspecific. However, recommend correlation to any known malignancy as metastatic disease cannot be excluded. Prostate hypertrophy. Dictated by: Natacha Jalloh M.D. on 09/18/2024 at 20:46 Approved by: Natacha Jalloh M.D. on 09/18/2024 at 20:49
--- NOTE | 2024-09-18 20:06 | DI.CT.S_ITS ---
PROCEDURE: CT ANGIO CHEST PE PROTOCOL INDICATIONS: dyspnea PE suspected TECHNIQUE: After the administration of intravenous contrast, 2 mm thick sections acquired from the pulmonary apices to the posterior costophrenic angles. 3-dimensional maximum intensity projection (MIP) coronal and sagittal reformats were then acquired through the thorax. For radiation dose reduction, the following was used: automated exposure control, adjustment of mA and/or kV according to patient size. COMPARISON: [facility], CT, CT ANGIO CHEST PE PROTOCOL, 08/27/2024, 4:01. FINDINGS: Image quality: Diagnostic. Pulmonary arteries: Pulmonary arteries are normal in size, and demonstrate no intraluminal filling defects to suggest central pulmonary embolism. Lower Neck: No enlarged lymph nodes. Thyroid: No thyroid nodules which require sonographic follow up, per consensus guidelines. Axillae: No enlarged lymph nodes. Chest Wall: Unremarkable. Bones: Unremarkable. Lungs and Pleura: No pneumothorax or pleural effusions. No consolidation or suspicious nodules. calcified pleural plaques. Heart: Heart size is normal. No pericardial effusion. Thoracic Vessels: No aortic aneurysm. Mediastinum and Christiane: No enlarged lymph nodes. Esophagus: Diffuse esophageal thickening most prominent in the mid and distal portion, with marked luminal narrowing. Hiatal hernia. Overall appearance is unchanged. Upper Abdomen: Diffuse hepatic steatosis. Otherwise visualized upper abdomen solid organs and bowel loops appear normal. IMPRESSION: No pulmonary embolus. Lungs are clear. Hepatic steatosis. Diffuse esophageal thickening particularly in the distal portion similar compared to prior exam although progressive overall. While this could represent significant esophagitis, further evaluation with upper GI or endoscopy is recommended to exclude presence of underlying mass lesion. Dictated by: Natacha Jalloh M.D. on 09/18/2024 at 20:41 Approved by: Natacha Jalloh M.D. on 09/18/2024 at 20:46
[2024-09-18] MEDS: MAGNESIUM SULFATE 4 GM/100 ML PIGGYBACK IV (20:30)
[2024-09-18] MEDS: ONDANSETRON 4 MG/2 ML INJ IV (22:00)
[2024-09-18] MEDS: LACTATED RINGERS 1,000 ML 100 ML IV (22:55)
[2024-09-19] VITALS (45 sets, daily range): BP systolic 120–184; BP diastolic 77–121; PULSE 85–127; RESP 16–24; TEMP 36.1–37.5; O2SAT 93–100
[2024-09-19] MEDS: lisinopriL 20 MG TABLET PO ×2 (00:32→08:29)
[2024-09-19] MEDS: ONDANSETRON 4 MG/2 ML INJ IV ×3 (02:50→17:47)
[2024-09-19] MEDS: ACETAMINOPHEN 325 MG TABLET 650 MG PO (02:50)
[2024-09-19] MEDS: MORPHINE 2 MG/ML INJ 1 MG IV ×2 (04:32→23:03)
[2024-09-19 05:11] LABS: Add Manual Diff / Slide Review NO; Basophils Absolute Auto 100 /uL (0-100); Basophils Percent Auto 1.1 % (0-2); Eosinophils Absolute Auto 0 /uL (0-450); Hemoglobin 13.1 g/dL (13.5-17.5); Lymphocytes Absolute Auto 600 /uL (1100-4500); Lymphocytes Percent Auto 5.6 % (25-40); Mean Corpuscular HGB Conc 34.4 % (30-36); Mean Corpuscular Hemoglobin 35.8 PG (26-34); Mean Corpuscular Volume 104.1 fL (80-100); Monocytes Absolute Auto 1000 /uL (0-900); Monocytes Percent Auto 10.3 % (3-14); Neutrophils Absolute Auto 8300 /uL (1500-7000); Platelet Count 196 X10^3/uL (150-400); Red Blood Cell Count 3.65 X10^6/uL (4.5-5.9); Red Cell Distribution Width 14.1 % (11.6-14.8)
[2024-09-19 05:21] LABS: Alanine Aminotransferase 73 IU/L (<50); Albumin 4.1 g/dL (3.5-5.0); Albumin Globulin Ratio 1.3 (1.0-2.8); Alkaline Phosphatase 78 U/L (38-126); Amylase 690 U/L (30-110); Aspartate Aminotransferase 88 IU/L (17-59); BUN Creatinine Ratio 13.6 (6-22); Bilirubin Unconjugated 0.7 mg/dL (0.0-1.1); Blood Urea Nitrogen 12 mg/dL (9-20); Carbon Dioxide 31 mmol/L (22-32); Chloride 100 mmol/L (98-107); Estimated Glomerular Filt Rate > 60 mL/min (>60); Globulin 3.1 g/dL (1.7-4.1); Glucose 143 mg/dL (80-110); HEMOLYSIS 19 (0-50); Magnesium 1.7 mg/dL (1.6-2.3); Potassium 3.8 mmol/L (3.4-5.1); Sodium 137 mmol/L (137-145); Total Protein 7.2 g/dL (6.3-8.2)
[2024-09-19] MEDS: LORazepam 2 MG/ML INJ IV ×5 (05:33→21:36)
[2024-09-19 06:24] LABS: Lipase 7746 U/L (23-300)
[2024-09-19 06:26] LABS: Calcium 12.8 mg/dL (8.4-10.2)
[2024-09-19] MEDS: ASPIRIN 81 MG CHEW TAB PO (08:29)
[2024-09-19] MEDS: MULTIVITAMIN 1 TABLET 1 TAB PO (08:29)
[2024-09-19] MEDS: PANTOPRAZOLE DR 40 MG TABLET PO (08:29)
[2024-09-19] MEDS: THIAMINE 100 MG TABLET PO (08:29)
[2024-09-19] MEDS: TAMSULOSIN 0.4 MG CAPSULE PO (08:29)
[2024-09-19] MEDS: FOLIC ACID 1 MG TABLET PO (08:29)
[2024-09-19] MEDS: ATORVASTATIN 20 MG TABLET 40 MG PO (08:30)
[2024-09-19] MEDS: ALBUTEROL/IPRATROPIUM 3 ML AMPUL INH (08:43)
[2024-09-19] MEDS: SODIUM CHLORIDE 0.9% FLUSH 10 ML IV (09:46)
[2024-09-19] MEDS: PHENobarbital 65 MG/ML VIAL 130 MG IV (10:03)
[2024-09-19] MEDS: METOPROLOL TARTRATE 5 MG/5 ML INJ IV ×3 (10:12→23:01)
[2024-09-19] MEDS: dexmedeTOMIDine in 0.9 % NaCL 400 MCG/100 ML PLAST..BAG IV (10:21)
--- NOTE | 2024-09-19 10:29 | PM.HP.1 ---
History of Present Illness History of Present Illness Date Patient Seen: 09/19/24 Time Patient Seen: 10:30 Date of Onset of Symptoms: 09/17/24 Chief complaint: vomiting, sob Narrative: Patient is a 64-year-old male confused this morning history is mostly obtained from my discussion with the emergency room doctor. Apparently patient with history of tachycardia COPD alcoholism and hyperlipidemia. Apparently he woke up yesterday feeling short of breath with some tightness in his chest he had no fevers chills or significant cough. He vomited but said he is not unusual for him. His everyday drinker us use alcohol night of presentation about midnights as he was thinking about trying to stop but has not been. Not nauseated. Today is confused. Agitated. Has been gotten moderate amount of Ativan. With no other change. 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) Essential hypertension (10/09/16) Surgical History Hx of appendectomy (1977) Hx of hernia repair (1999) History of nephrectomy (1977) History of unilateral nephrectomy (10/09/16) Family History Father Congestive heart failure Diabetes mellitus COPD (chronic obstructive pulmonary disease) Mother Hypertension Diabetes mellitus Cancer Social History marital status: household members: spouse and family occupational status: previously employed leisure activities: exercise Smoking Status: Current every day smoker Tobacco: How many years used: 50 alcohol intake: current substance use type: marijuana caffeine: Yes Type(s) of exercise: walking Meds Home Medications and Allergies Home Medications Medication Instructions Recorded Confirmed Type ascorbic acid (vitamin C) 250 mg 250 mg PO DAILY 04/18/23 09/18/24 History tablet famotidine 20 mg tablet 20 mg PO BEDTIME #90 tabs 04/01/24 09/18/24 Rx acetaminophen 325 mg tablet 650 mg (2 x 325 mg) PO Q6H PRN 05/04/24 08/27/24 Rx pain #1 tab magnesium 250 mg tablet 250 mg PO DAILY 05/04/24 09/18/24 History ipratropium 0.5 mg-albuterol 3 mg 3 ml inhalation Q6-8H PRN 05/11/24 09/18/24 Rx (2.5 mg base)/3 mL nebulization shortness of breath or wheezing soln #180 mL lisinopril 20 mg tablet 20 mg PO DAILY #30 tabs 06/12/24 09/18/24 Rx tamsulosin 0.4 mg capsule 0.4 mg PO DAILY #90 caps 08/12/24 09/18/24 Rx tiotropium 2.5 mcg-olodaterol 2.5 2 puff inhalation QPM #4 grams 09/16/24 09/18/24 Rx mcg/actuation mist for inhalation atorvastatin 40 mg tablet 40 mg PO BEDTIME 09/18/24 09/18/24 History nortriptyline 25 mg capsule 25 mg PO BEDTIME 09/18/24 09/18/24 History Allergies Allergy/AdvReac Type Severity Reaction Status Date / Time fluconazole Allergy Severe SWEATING, Verified 08/12/24 09:31 SOB, NAUSEA diclofenac [DICLOFENAC] Allergy Intermediate RASH ON Verified 08/12/24 09:31 FACE; LIGHTHEADEDNESS Review of Systems Review of Systems Narrative: Really unable to obtain Exam Vital Signs (past 8 hours): - 09/19/24 03:00 09/19/24 04:34 09/19/24 05:53 Temperature 97.2 F L Pulse Rate 113 H 115 H Respiratory Rate 17 16 Blood Pressure 169/104 H Pulse Oximetry 95 94 Oxygen Delivery Method CPAP Oxygen Flow Rate Fraction of Inspired Oxygen 09/19/24 08:00 09/19/24 08:06 09/19/24 08:29 Temperature 97.6 F Pulse Rate 124 H 122 H 124 H Respiratory Rate 23 22 Blood Pressure 184/121 H 166/109 H 166/109 H Pulse Oximetry 96 Oxygen Delivery Method Oxygen Flow Rate 0 Fraction of Inspired Oxygen 09/19/24 08:30 09/19/24 08:42 09/19/24 08:43 Temperature Pulse Rate 124 H 125 H Respiratory Rate 22 18 Blood Pressure 155/108 H Pulse Oximetry 95 Oxygen Delivery Method Room Air Room Air Oxygen Flow Rate Fraction of Inspired Oxygen 09/19/24 09:47 Temperature Pulse Rate 127 H Respiratory Rate Blood Pressure 173/113 H Pulse Oximetry 94 Oxygen Delivery Method Oxygen Flow Rate 0 Fraction of Inspired Oxygen Fraction of Inspired Oxygen 21 SaO2/FiO2 Ratio 447 Oxygen Delivery Method Room Air Oxygen Flow Rate 0 Narrative Exam Narrative: Alert male interactive but confused in no obvious pain. HEENT exam mucous membranes moist no evidence of trauma. Neck supple without adenopathy. Lungs are clear. Heart is regular rate and rhythm without murmurs clicks or gallops abdomen is soft positive bowel sounds really nontender. Extremities without edema. Neurologic exam he is confused he is moving all extremities but no other change Objective Labs 09/19/24 04:31 09/19/24 04:31 Labs: Laboratory Results - last 24 hr 09/18/24 09/19/24 18:40 04:31 WBC 10.8 10.0 RBC 3.95 L 3.65 L Hgb 14.0 13.1 L Hct 41.1 38.0 L MCV 104.1 H 104.1 H MCH 35.4 H 35.8 H MCHC 34.0 34.4 RDW 14.0 14.1 Plt Count 226 196 Neut % (Auto) 76.3 H 83.0 H Lymph % (Auto) 12.5 L 5.6 L [place] % (Auto) 10.6 10.3 Eos % (Auto) 0.1 L 0.0 L Baso % (Auto) 0.5 1.1 Neut # (Auto) 8200 H 8300 H Lymph # (Auto) 1400 600 L [place] # (Auto) 1200 H 1000 H Eos # (Auto) 0 0 Baso # (Auto) 100 100 PT 10.3 INR 0.9 APTT 28 D-Dimer 4098 H Sodium 140 137 Potassium 3.7 3.8 Chloride 97 L 100 Carbon Dioxide 29 31 BUN 12 12 Creatinine 0.96 0.88 Estimated GFR > 60 > 60 BUN/Creatinine Ratio 12.5 13.6 Glucose 124 H 143 H Calcium 14.5 H* 12.8 H* Magnesium 1.1 L 1.7 Total Bilirubin 0.8 1.0 Conjugated Bilirubin 0.0 Unconjugated Bilirubin 0.7 AST 123 H 88 H ALT 88 H 73 H Alkaline Phosphatase 85 78 Total Creatine Kinase 54 L Troponin I < 0.012 NT-Pro-B Natriuret Pep 70 Total Protein 8.4 H 7.2 Albumin 4.8 4.1 Globulin 3.6 3.1 Albumin/Globulin Ratio 1.3 1.3 Amylase 690 H Lipase 1782 H 7746 H D TSH 4.11 Ethyl Alcohol 24 H Assessment & Plan Assessment & Plan narrative: Alcohol withdrawal syndrome. Patient apparently has had this before. Pretty extensive right now. We will take him from the [facility] and moving to ICU for closer management. Will place on IV phenobarbital for seizure prophylaxis will wean over the next 48 hours. Will continue with Ativan. And use Precedex if needed for control. Hopefully patient will settle over the next little bit and follow from there. Difficult right now. Unsure how much she drinks on a usual basis. Somewhere on 36 oz to 40 oz of beer a day. At least that is reported. Pancreatitis. Severe. Worsening today. We will continue support. CT scan showed no masses in the pancreas area. May have to rescan depending on how he does IV hydration NPO. I do not think he needs an NG tube and I do not think would be able to keep it in because of his agitation but will see how things go. Hypercalcemia. Improved with hydration will continue to follow. I do not think we have to be more aggressive at this time but will see how things go. Recheck a.m. continue hydration. Hypertension. Moderately elevated at this time. Will treat with IV metoprolol Q 6 at this point but may need to increase to Q-tip prn will see how things go. Goal will be blood pressure under 150 and 90. I think beta-choco will be better because of his agitation but will see how it goes. History of esophageal thickening. Has not been fully worked up needs EGD but it should not be sent we have to do at this time. Will treat with PPI IV until he can take p.o. and re-evaluate after that. DVT prophylaxis should be low risk with his history of esophageal swelling or thickening secondary to possible acid do not want to create bleed and he is pretty active moving around should be low risk but will follow. Reassess tomorrow. External compression Code status full. Disposition. Clearly will be here a few days be robb med week will see how long he has to with this withdrawals. And has pancreatitis. Going to be a long process I believe. Time-Based Coding :: [TOTAL MINUTES] spent with patient and on the chart (including review of chart, obtaining history, exam, reviewing outside data, placing orders, documenting exam and treatment plan, and counseling patient) on [DATE].
[2024-09-19] MEDS: NICOTINE 21 MG PATCH TOP (10:38)
--- NOTE | 2024-09-19 10:54 | PC.NURSE ---
Late entry: This morning after 15 minute check, CIWA score was 13, down from 19; based on protocol, this RN gave pt another 2mg of ativan, which was pulled from the pyxis. The vial did not scan in to the AUG.
--- NOTE | 2024-09-19 11:11 | PC.NURSE ---
0930 - Patient transferred to [facility] from Acute Care. Restless, agitated, confused, and impulsive. Patient frequently attempting to get out of bed, remove monitoring equipment, and IV site, unable to reorient. HR 120-140, sinus, BP 175/111, O2 98% on RA, RR 24, T 98.2F. CIWA 13. Dr. Delong at bedside. IV Metoprolol, IV Phenobarbital, and Dexmedetomidine drip ordered.
[2024-09-19] MEDS: PANTOPRAZOLE 40 MG VIAL IV (11:31)
[2024-09-19] MEDS: DEXTROSE 5%-0.9% NS 1,000 ML 100 ML IV ×2 (11:34→21:22)
--- NOTE | 2024-09-19 13:29 | CM.DANOTE ---
Patient is a 64 yo male who was admitted INPT Status on 09/18/24 for Acute Pancreatitis and possible ETOH withdrawal. Pt has [employer]WIS for insurance and his PCP is Dr. Miguel Ángel Bruce at [facility]. EMR was reviewed. Per MD, pt with a hx of COPD and daily ETOH use and admitted with vomiting, weakness, and acute pancreatitis. SW attempted to meet bedside with pt and explained role and pt with ongoing gag reflex and sitter as pt impulsive and pt stating he is not feeling up to answering assessment questions and then moved to ICU due to increased withdrawal type symptoms. No Sig Other bedside yet at this time. PT not yet ordered as pt not yet medically appropriate. Plan: SW to follow in the AM for ongoing assessment to determine discharge planning needs and likely ETOH resources. YENIFER Austin Discharge Planning/Care Management CM Discharge Assessment Start: 09/19/24 13:19 Freq: Status: Active Protocol: Document 09/19/24 13:19 BF (Rec: 09/19/24 13:29 BF [id number]) Discharge Planning Assessment Assigned Vp Treasurer YENIFER Banda DPOA/Assigned Designee Name Sig Other Joslyn Contact Information [phone] Advance Directives? No Advance Directives on File No History Provided By Patient,Medical Record Has Patient been admitted in last 30 No days? Prior Living Arrangements Mobile home Household Members spouse,family Independent with ADL's Yes Is patient alert and oriented? Yes Patient/Family Preference Drug/Alcohol Rehab Comment Pending eventual PT/OT eval and recommendations Barriers to Discharge No Discharge Plan Home Transportation Arrangement likely Sig Other Referrals Initiated Other Additional Comment Pending PT/OT and possible ETOH resources Whiteboard Updated in Patient Room with Yes name and ext. # of Vp Treasurer Review Status In Process Please Provide Date Initial DC 09/19/24 Assessment Was Performed Next Review Type Continued Stay Review
[2024-09-19] MEDS: PHENobarbital 65 MG/ML VIAL IV ×2 (15:34→21:18)
[2024-09-19] MEDS: dexmedeTOMIDine in 0.9 % NaCL 400 MCG/100 ML PLAST..BAG 16.25 MCG IV (16:08)
[2024-09-19] MEDS: dexmedeTOMIDine in 0.9 % NaCL 400 MCG/100 ML PLAST..BAG 19.5 MCG IV (21:19)
[2024-09-20] VITALS (62 sets, daily range): BP systolic 99–158; BP diastolic 62–102; PULSE 66–92; RESP 18–38; TEMP 36.2–37.4; O2SAT 89–99
[2024-09-20 00:36] LABS: MRSA (Nasal) PCR NOT DETECTED (Not Detect)
[2024-09-20] MEDS: LORazepam 2 MG/ML INJ IV ×7 (01:07→22:10)
[2024-09-20] MEDS: SODIUM CHLORIDE 0.9% FLUSH 10 ML IV ×4 (01:07→20:01)
[2024-09-20] MEDS: dexmedeTOMIDine in 0.9 % NaCL 400 MCG/100 ML PLAST..BAG 24.375 MCG IV ×6 (02:00→23:32)
[2024-09-20] MEDS: PHENobarbital 65 MG/ML VIAL IV ×2 (04:07→09:57)
[2024-09-20] MEDS: METOPROLOL TARTRATE 5 MG/5 ML INJ IV ×4 (04:10→21:48)
[2024-09-20 05:46] LABS: Alanine Aminotransferase 40 IU/L (<50); Albumin 2.9 g/dL (3.5-5.0); Albumin Globulin Ratio 1.1 (1.0-2.8); Alkaline Phosphatase 49 U/L (38-126); Aspartate Aminotransferase 51 IU/L (17-59); BUN Creatinine Ratio 43.4 (6-22); Bilirubin Total 0.5 mg/dL (0.2-1.3); Blood Urea Nitrogen 33 mg/dL (9-20); Calcium 9.5 mg/dL (8.4-10.2); Carbon Dioxide 27 mmol/L (22-32); Chloride 108 mmol/L (98-107); Estimated Glomerular Filt Rate > 60 mL/min (>60); Globulin 2.6 g/dL (1.7-4.1); Glucose 133 mg/dL (80-110); HEMOLYSIS < 15 (0-50); Magnesium 1.4 mg/dL (1.6-2.3); Potassium 3.9 mmol/L (3.4-5.1); Sodium 140 mmol/L (137-145); Total Protein 5.5 g/dL (6.3-8.2)
[2024-09-20 05:48] LABS: Add Manual Diff / Slide Review NO; Basophils Absolute Auto 100 /uL (0-100); Basophils Percent Auto 0.6 % (0-2); Eosinophils Absolute Auto 0 /uL (0-450); Eosinophils Percent Auto 0.1 % (2-4); Hematocrit 32.5 % (41-53); Hemoglobin 10.8 g/dL (13.5-17.5); Lymphocytes Absolute Auto 700 /uL (1100-4500); Mean Corpuscular HGB Conc 33.1 % (30-36); Mean Corpuscular Hemoglobin 35.3 PG (26-34); Mean Corpuscular Volume 106.6 fL (80-100); Monocytes Absolute Auto 1100 /uL (0-900); Monocytes Percent Auto 7.5 % (3-14); Neutrophils Absolute Auto 12600 /uL (1500-7000); Neutrophils Percent Auto 86.8 % (50-75); Platelet Count 136 X10^3/uL (150-400); Red Blood Cell Count 3.05 X10^6/uL (4.5-5.9); Red Cell Distribution Width 14.2 % (11.6-14.8); White Blood Cell Count 14.6 X10^3/uL (4.5-11.0)
[2024-09-20] MEDS: DEXTROSE 5%-0.9% NS 1,000 ML 100 ML IV ×2 (07:28→16:57)
[2024-09-20] MEDS: PANTOPRAZOLE 40 MG VIAL IV (08:49)
[2024-09-20] MEDS: THIAMINE 100 MG TABLET PO (08:49)
[2024-09-20] MEDS: NICOTINE 21 MG PATCH TOP (09:00)
[2024-09-20] MEDS: MAGNESIUM SULFATE 2 GM/50 ML PIGGYBACK IV (09:14)
[2024-09-20] MEDS: THIAMINE 100 MG in SODIUM CHLORIDE 0.9% 100 ML 404 MG IV (09:56)
[2024-09-20 11:10] LABS: Amylase 883 U/L (30-110)
[2024-09-20 11:38] LABS: Lipase 5770 U/L (23-300)
--- NOTE | 2024-09-20 11:42 | PM.PN.1 ---
Subjective Subjective Date Patient Seen: 09/20/24 Time Patient Seen: 11:42 Interval history: Patient minimally arousable today. CIWA scale still pretty high. Not complaining of any significant issue or problem today. Not really waking up much. But otherwise stable Exam Vital Signs (past 8 hours): - 09/20/24 04:00 09/20/24 04:00 09/20/24 04:00 Temperature 99.3 F Pulse Rate Respiratory Rate Blood Pressure 138/91 H Pulse Oximetry Oxygen Delivery Method Room Air Oxygen Flow Rate 09/20/24 04:00 09/20/24 04:30 09/20/24 04:37 Temperature Pulse Rate 87 78 Respiratory Rate 28 H 30 H Blood Pressure 133/93 H Pulse Oximetry 96 97 Oxygen Delivery Method Oxygen Flow Rate 0 0 09/20/24 04:37 09/20/24 05:00 09/20/24 05:00 Temperature Pulse Rate 79 79 Respiratory Rate 29 H 30 H Blood Pressure 144/89 H Pulse Oximetry 97 94 Oxygen Delivery Method Oxygen Flow Rate 0 0 09/20/24 05:30 09/20/24 05:40 09/20/24 05:42 Temperature Pulse Rate 79 78 78 Respiratory Rate 35 H 35 H 34 H Blood Pressure 139/84 Pulse Oximetry 95 94 Oxygen Delivery Method Oxygen Flow Rate 0 0 09/20/24 05:43 09/20/24 05:43 09/20/24 06:00 Temperature Pulse Rate 78 80 Respiratory Rate 36 H 29 H Blood Pressure 139/84 Pulse Oximetry 94 93 Oxygen Delivery Method Oxygen Flow Rate 0 0 09/20/24 06:00 09/20/24 06:30 09/20/24 07:00 Temperature 98.4 F Pulse Rate 79 Respiratory Rate 32 H Blood Pressure 133/89 141/87 H Pulse Oximetry 94 Oxygen Delivery Method Oxygen Flow Rate 0 09/20/24 07:00 09/20/24 07:30 09/20/24 08:00 Temperature Pulse Rate 80 82 Respiratory Rate 30 H 28 H Blood Pressure Pulse Oximetry 93 94 Oxygen Delivery Method Room Air Oxygen Flow Rate 09/20/24 08:00 09/20/24 08:00 09/20/24 08:30 Temperature Pulse Rate 78 80 Respiratory Rate 31 H 30 H Blood Pressure 146/88 H Pulse Oximetry 94 94 Oxygen Delivery Method Oxygen Flow Rate 09/20/24 09:00 09/20/24 09:00 09/20/24 09:10 Temperature Pulse Rate 78 78 Respiratory Rate 29 H 18 Blood Pressure 154/86 H 154/86 H Pulse Oximetry 95 Oxygen Delivery Method Oxygen Flow Rate 09/20/24 09:30 09/20/24 10:00 09/20/24 10:20 Temperature Pulse Rate 79 72 Respiratory Rate 29 H 32 H Blood Pressure 111/62 Pulse Oximetry 95 93 Oxygen Delivery Method Oxygen Flow Rate 09/20/24 10:20 09/20/24 10:30 Temperature Pulse Rate 66 66 Respiratory Rate 34 H 34 H Blood Pressure Pulse Oximetry 92 89 L Oxygen Delivery Method Oxygen Flow Rate Fraction of Inspired Oxygen 21 SaO2/FiO2 Ratio 447 Oxygen Delivery Method Room Air Oxygen Flow Rate 0 Narrative Exam Narrative: Sleeping male in no acute distress mucous membranes moist neck supple without adenopathy lungs are clear heart is regular rate and rhythm abdomen is mildly distended tympanic positive bowel sounds appears to be nontender extremities without cyanosis clubbing edema neurologic exam difficult to assess patient is not waking up but is moving all extremities Objective Labs 09/20/24 04:35 09/20/24 04:35 Labs: Laboratory Results - last 24 hr 09/19/24 09/20/24 23:18 04:35 WBC 14.6 H RBC 3.05 L Hgb 10.8 L Hct 32.5 L MCV 106.6 H MCH 35.3 H MCHC 33.1 RDW 14.2 Plt Count 136 L Neut % (Auto) 86.8 H Lymph % (Auto) 5.0 L [place] % (Auto) 7.5 Eos % (Auto) 0.1 L Baso % (Auto) 0.6 Neut # (Auto) 57826 H Lymph # (Auto) 700 L [place] # (Auto) 1100 H Eos # (Auto) 0 Baso # (Auto) 100 Sodium 140 Potassium 3.9 Chloride 108 H Carbon Dioxide 27 BUN 33 H Creatinine 0.76 Estimated GFR > 60 BUN/Creatinine Ratio 43.4 H Glucose 133 H Calcium 9.5 Magnesium 1.4 L Total Bilirubin 0.5 AST 51 ALT 40 Alkaline Phosphatase 49 Total Protein 5.5 L Albumin 2.9 L Globulin 2.6 Albumin/Globulin Ratio 1.1 Amylase 883 H D Lipase 5770 H Nasal Screen MRSA (PCR) Not detected PFSH Medical History Alcoholism in remission Acute upper GI bleed Mixed hyperlipidemia History of kidney disease as a child (10/09/16) 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) Essential hypertension (10/09/16) Surgical History Hx of appendectomy (1977) Hx of hernia repair (1999) History of nephrectomy (1977) History of unilateral nephrectomy (10/09/16) Family History Father Congestive heart failure Diabetes mellitus COPD (chronic obstructive pulmonary disease) Mother Hypertension Diabetes mellitus Cancer Social History marital status: household members: spouse and family occupational status: previously employed leisure activities: exercise Smoking Status: Current every day smoker Tobacco: How many years used: 50 alcohol intake: current substance use type: marijuana caffeine: Yes Type(s) of exercise: walking Assessment & Plan Assessment & Plan narrative: Hypomagnesemia. Patient down on magnesium and given IV replacement recheck a.m. Alcohol withdrawal syndrome still significantly affected. Still agitated. Will continue phenobarbital, Precedex, Ativan as needed. Banana bag given. Hopefully we will be able to slowly withdraw aggressive treatment by tomorrow. At least he did not get intubated. At least so far. Seems to be doing well. Protecting airway and oxygenating. Social service discussed and will see if we can get treatment. Clearly patient needs this. Whether or not he will want it is the question. No other change. Patient has been given banana bag. And will continue with hydration. Pancreatitis. Slightly improved. Least on the downward trend. Not taking p.o. anyway so it is not an issue. Will continue NPO fluid hydration and follow. Recheck a.m.. Hypercalcemia. Seems to responded to fluids. Do not note a more baseline rate. History of esophageal thickening needs EGD at some point. Not some emergent. Will continue PPI. Will need to be followed as an outpatient. DVT prophylaxis. Concerned about possible esophageal thickening but it does not appear to be varicosities. No evidence of bleeding and patient is pretty immobile. Will start Lovenox today. Code status full. Disposition. Patient still extremely ill. Mostly alcohol withdrawal but certainly pancreatitis is not helping. I think this is going to be several days before he is able to discharge. But will see how things resolved. Hoping as he wakes up will be able to feed him and see how he does but will have to see how it goes. Unclear timeframe but will follow. Certainly not going to make a lot of changes today. Time-Based Coding :: [TOTAL MINUTES] spent with patient and on the chart (including review of chart, obtaining history, exam, reviewing outside data, placing orders, documenting exam and treatment plan, and counseling patient) on [DATE].
[2024-09-20] MEDS: ENOXAPARIN 40 MG/0.4 ML SYRINGE SUBCUT (12:24)
[2024-09-20] MEDS: dexmedeTOMIDine in 0.9 % NaCL 400 MCG/100 ML PLAST..BAG 22.75 MCG IV (13:36)
--- NOTE | 2024-09-20 14:00 | CM.DPC ---
DCP Cont: Per MD and RN, pt remains on Pressors and sedation due to increased withdrawals. Pt confused and frequent reminders that he is in the hospital and not alert and oriented and not medically appropriate for bedside assessment for discharge planning at this time or for PT eval. Plan: SW to follow closely for pt progress for bedside assessment for ETOH resources and needs and PT eval to determine discharge planning options. YENIFER Austin
[2024-09-20] MEDS: PHENobarbital 65 MG/ML VIAL 32.5 MG IV ×2 (15:36→21:47)
[2024-09-20] MEDS: MORPHINE 2 MG/ML INJ 1 MG IV (22:38)
[2024-09-21] VITALS (55 sets, daily range): BP systolic 141–205; BP diastolic 76–98; PULSE 67–120; RESP 20–46; TEMP 36.3–37.3; O2SAT 90–100
[2024-09-21] MEDS: LORazepam 2 MG/ML INJ IV ×8 (00:10→23:48)
[2024-09-21] MEDS: MORPHINE 2 MG/ML INJ 1 MG IV ×3 (00:33→23:00)
[2024-09-21] MEDS: ONDANSETRON 4 MG/2 ML INJ IV (00:34)
[2024-09-21] MEDS: DEXTROSE 5%-0.9% NS 1,000 ML 100 ML IV ×2 (02:48→15:18)
[2024-09-21] MEDS: PHENobarbital 65 MG/ML VIAL 32.5 MG IV ×2 (03:52→11:12)
[2024-09-21] MEDS: dexmedeTOMIDine in 0.9 % NaCL 400 MCG/100 ML PLAST..BAG 24.375 MCG IV ×2 (03:53→07:31)
[2024-09-21] MEDS: METOPROLOL TARTRATE 5 MG/5 ML INJ IV ×4 (04:43→21:52)
--- NOTE | 2024-09-21 05:16 | PC.NURSE ---
weight shifter RN note pt confused oriented mostly to self, does not follow many commands, frequently moaning/yelling, pulling at lines and attempting to get out of bed, ativan prn with mild effect, CIWA 13-5, precedex at max dose, mittens prn, seizure pads maintained, SR, VSS, afebrile, O2 sats 88% on RA with open mouth breathing, 2L simple mask applied and sats improved to 95%, RR 20-30s, abd round, firm with BS, occassional grimace with abd palpation, prn analgesic with effect, lips dry, frequent mouth care given, swabs in mouth cleaned out coffee ground secretions, pt turned q2h and HOB elevated, suction at bedside, often bitting at suction cath and unable to suction secretions as pt often swallowing them, prn zofran given, rojas draining clear [place] urine, skin warm, diaphoretic at times, dsg placed under rojas port to prevent friction when pt restless and pulling at lines, bed alarm on, call foley within reach, care continued
[2024-09-21 06:23] LABS: Add Manual Diff / Slide Review NO; Basophils Absolute Auto 100 /uL (0-100); Basophils Percent Auto 0.5 % (0-2); Eosinophils Absolute Auto 0 /uL (0-450); Eosinophils Percent Auto 0.4 % (2-4); Hematocrit 27.2 % (41-53); Hemoglobin 9.2 g/dL (13.5-17.5); Lymphocytes Absolute Auto 1300 /uL (1100-4500); Lymphocytes Percent Auto 11.5 % (25-40); Mean Corpuscular HGB Conc 33.9 % (30-36); Mean Corpuscular Hemoglobin 35.7 PG (26-34); Mean Corpuscular Volume 105.4 fL (80-100); Monocytes Absolute Auto 600 /uL (0-900); Monocytes Percent Auto 5.4 % (3-14); Neutrophils Absolute Auto 9200 /uL (1500-7000); Neutrophils Percent Auto 82.2 % (50-75); Platelet Count 101 X10^3/uL (150-400); Red Blood Cell Count 2.58 X10^6/uL (4.5-5.9); Red Cell Distribution Width 13.8 % (11.6-14.8); White Blood Cell Count 11.2 X10^3/uL (4.5-11.0)
[2024-09-21 06:27] LABS: Magnesium 1.5 mg/dL (1.6-2.3)
[2024-09-21 06:28] LABS: Alanine Aminotransferase 33 IU/L (<50); Albumin 2.6 g/dL (3.5-5.0); Alkaline Phosphatase 54 U/L (38-126); Aspartate Aminotransferase 51 IU/L (17-59); BUN Creatinine Ratio 30.6 (6-22); Bilirubin Total 0.4 mg/dL (0.2-1.3); Blood Urea Nitrogen 22 mg/dL (9-20); Calcium 7.7 mg/dL (8.4-10.2); Carbon Dioxide 22 mmol/L (22-32); Chloride 116 mmol/L (98-107); Estimated Glomerular Filt Rate > 60 mL/min (>60); Globulin 2.7 g/dL (1.7-4.1); Glucose 117 mg/dL (80-110); HEMOLYSIS < 15 (0-50); Potassium 3.4 mmol/L (3.4-5.1); Sodium 145 mmol/L (137-145); Total Protein 5.3 g/dL (6.3-8.2)
[2024-09-21 07:03] LABS: Amylase 280 U/L (30-110); Lipase 946 U/L (23-300)
--- NOTE | 2024-09-21 08:26 | DI.RAD.S_ITS ---
PROCEDURE: XR CHEST 1V INDICATIONS: hypoxia TECHNIQUE: One view of the chest was acquired. COMPARISON: [facility], CT, CT ANGIO CHEST PE PROTOCOL, 09/18/2024, 20:11. [facility], CR, XR CHEST 1V, 09/18/2024, 18:22. [facility], CR, XR CHEST 1V, 08/26/2024, 22:12. FINDINGS: Surgical changes and devices: None. Lungs and pleura: Low lung volumes bilaterally. Mild bibasilar opacities. Mild interstitial prominence. No pleural effusions or pneumothorax. Mediastinum: Cardiac silhouette is likely within normal limits given portable technique. Bones and chest wall: No suspicious bony lesions. Overlying soft tissues appear unremarkable. IMPRESSION: Approved by: Vishnu Brand M.D. on 09/21/2024 at 8:47 Low lung volumes bilaterally with bibasilar opacities that may represent atelectasis, edema, aspiration, or pneumonia.
[2024-09-21] MEDS: PANTOPRAZOLE 40 MG VIAL IV ×2 (08:31→20:27)
[2024-09-21] MEDS: NICOTINE 21 MG PATCH TOP (08:32)
[2024-09-21] MEDS: SODIUM CHLORIDE 0.9% FLUSH 10 ML IV ×2 (08:32→20:27)
[2024-09-21 08:51] LABS: Allen Test for ABG Passed? Positive; Base Excess ABG -0.4 mmol/L (-2-3); Blood Gas Collection Site Right Radial; HCO3 ABG 24 mmol/L (23-27); Oxygen Saturation ABG 93 % (95-100); PCO2 ABG 37.4 mmHg (35-45); PO2 ABG 67 mmHg (80-100); TCO2 ABG 23 mmol/L (23-27); pH ABG 7.42 (7.35-7.45)
--- NOTE | 2024-09-21 08:57 | P.PN_ITS ---
Subjective Subjective Date Patient Seen: 09/21/24 Time Patient Seen: 08:00 Interval history: Assumed care of this pt from Dr Delong for Dr Bruce. Pt hospitalized with pancreatitis and alcohol withdrawal. Pt is nonresponsive to questions this morning. As per nursing, they have been unable to wean down his Precedex at all due to significant agitation, pulling at the lines, etc when trialed. Last night the pt did have some gargling sounds. Nursing was concerned for aspiration. They suctioned his mouth and noted production of coffee-ground type liquid. After this episode, he did start to require low amounts of oxygen via oxymask as well. The pt has been very difficult to arouse this morning. Exam Vital Signs (past 8 hours): - 09/21/24 01:00 09/21/24 01:00 09/21/24 01:30 Temperature Pulse Rate 84 79 Respiratory Rate 29 H 32 H Blood Pressure 148/80 H Pulse Oximetry 90 L 97 Oxygen Delivery Method Oxygen Flow Rate Fraction of Inspired Oxygen 09/21/24 02:00 09/21/24 02:00 09/21/24 02:30 Temperature Pulse Rate 78 78 Respiratory Rate 31 H 29 H Blood Pressure 141/83 H Pulse Oximetry 98 96 Oxygen Delivery Method Oxygen Flow Rate Fraction of Inspired Oxygen 09/21/24 03:00 09/21/24 03:00 09/21/24 03:06 Temperature Pulse Rate 80 86 Respiratory Rate 34 H Blood Pressure 141/80 H Pulse Oximetry 96 93 Oxygen Delivery Method Oximask Oxygen Flow Rate 2 Fraction of Inspired Oxygen 09/21/24 03:07 09/21/24 03:30 09/21/24 04:00 Temperature 97.3 F L Pulse Rate 70 76 Respiratory Rate 26 H 28 H Blood Pressure Pulse Oximetry 95 Oxygen Delivery Method Simple Mask Oxygen Flow Rate Fraction of Inspired Oxygen 09/21/24 04:00 09/21/24 04:00 09/21/24 04:30 Temperature Pulse Rate 72 72 Respiratory Rate 30 H 26 H Blood Pressure 141/83 H Pulse Oximetry 97 95 Oxygen Delivery Method Oxygen Flow Rate Fraction of Inspired Oxygen 09/21/24 05:00 09/21/24 05:01 09/21/24 05:01 Temperature Pulse Rate 69 67 Respiratory Rate 32 H 31 H Blood Pressure 144/80 H Pulse Oximetry 93 95 Oxygen Delivery Method Oxygen Flow Rate Fraction of Inspired Oxygen 09/21/24 05:28 09/21/24 05:30 09/21/24 06:00 Temperature Pulse Rate 77 72 Respiratory Rate 20 31 H Blood Pressure 142/77 H 157/91 H Pulse Oximetry 95 Oxygen Delivery Method Oxygen Flow Rate Fraction of Inspired Oxygen 09/21/24 06:00 09/21/24 06:30 09/21/24 07:38 Temperature Pulse Rate 72 75 Respiratory Rate 29 H 29 H Blood Pressure Pulse Oximetry 92 94 95 Oxygen Delivery Method Oxygen Flow Rate 0 Fraction of Inspired Oxygen 09/21/24 07:54 Temperature Pulse Rate Respiratory Rate Blood Pressure Pulse Oximetry 94 Oxygen Delivery Method Oxygen Flow Rate 1 Fraction of Inspired Oxygen Fraction of Inspired Oxygen 28 SaO2/FiO2 Ratio 332 Oxygen Delivery Method Simple Mask Oxygen Flow Rate 1 Narrative Exam Narrative: Gen: NAD, laying in bed, occasionally grunting and trashing around HEENT: mouth coated with black substance Neck: no JVD CV: RRR, no murmurs Resp: rhonchi present bilateral bases, no wheezing, adequate air movement throughout Abd: soft, slightly distended, no fluid wave, no caput medusae, no apparent pain with palpation Ext: no edema Neuro: not responsive to commands, pupils equal and reactive to light, does respond to painful stimuli with grunting Objective Labs 09/21/24 05:05 09/21/24 05:05 Labs: Laboratory Results - last 24 hr 09/20/24 09/21/24 09/21/24 04:35 05:05 08:47 WBC 11.2 H RBC 2.58 L Hgb 9.2 L Hct 27.2 L MCV 105.4 H MCH 35.7 H MCHC 33.9 RDW 13.8 Plt Count 101 L Neut % (Auto) 82.2 H Lymph % (Auto) 11.5 L [place] % (Auto) 5.4 Eos % (Auto) 0.4 L Baso % (Auto) 0.5 Neut # (Auto) 9200 H Lymph # (Auto) 1300 [place] # (Auto) 600 Eos # (Auto) 0 Baso # (Auto) 100 ABG Sample Site Right radial ABG pH 7.42 ABG pCO2 37.4 ABG pO2 67 L ABG HCO3 24 ABG Total CO2 23 ABG O2 Saturation 93 L ABG Base Excess -0.4 Demetris Test Positive Sodium 145 Potassium 3.4 Chloride 116 H Carbon Dioxide 22 BUN 22 H Creatinine 0.72 Estimated GFR > 60 BUN/Creatinine Ratio 30.6 H Glucose 117 H Calcium 7.7 L Magnesium 1.5 L Total Bilirubin 0.4 AST 51 ALT 33 Alkaline Phosphatase 54 Total Protein 5.3 L Albumin 2.6 L Globulin 2.7 Albumin/Globulin Ratio 1.0 Amylase 883 H D 280 H D Lipase 5770 H 946 H D PFSH Medical History Alcoholism in remission Acute upper GI bleed Mixed hyperlipidemia History of kidney disease as a child (10/09/16) 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) Essential hypertension (10/09/16) Surgical History Hx of appendectomy (1977) Hx of hernia repair (1999) History of nephrectomy (1977) History of unilateral nephrectomy (10/09/16) Family History Father Congestive heart failure Diabetes mellitus COPD (chronic obstructive pulmonary disease) Mother Hypertension Diabetes mellitus Cancer Social History marital status: household members: spouse and family occupational status: previously employed leisure activities: exercise Smoking Status: Current every day smoker Tobacco: How many years used: 50 alcohol intake: current substance use type: marijuana caffeine: Yes Type(s) of exercise: walking Assessment & Plan Assessment & Plan narrative: Pt is a 64yo man with known alcoholism, COPD, HTN, BPH who presented with shortness of breath and tightness in his chest. Found to have pancreatitis, rapid progression into alcohol withdrawal. 1) Alcohol withdrawal: Pt on maximum dosing of Precedex. Significant agitation with attempted weaning thus far. Nonresponsive this morning, difficult to assess neurologically. - Continue Precedex, titrate down as tolerated - Continue Phenobarbital - Ativan PRN - Monitor closely for ability to protect airway, may need intubated - CT head his morning due to inability to assess neurologically - [facility] protocol - Banana bag daily 2) Pancreatitis: Lipase trending down appropriately. Pt without any evidence of pain on exam. - Continue to trend Lipase - Ongoing NPO status 3) Coffee ground emesis: Concerning for upper GI bleed. H/H very gradually falling, more likely dilutional. No other stigmata of cirrhosis, CT in the ED with only steatosis. Likely gastritis/esophagitis. Did have some esophageal thickening on CT scan. - Continue to trend H/H - Monitor for output closely - Discussed with Dr Hansen, surgery. Recommends outpatient EGD assuming stability. If need for inpatient scope would need to be transferred to location with GI where esophageal banding could be completed if needed. - IV Protonix 40mg BID 4) Hypoxia: New onset last night after concern for aspiration. CXR this morning with bibasilar opacities, questionable pneumonia. - Start Cefepime and Azithromycin for likely pneumonia - Wean oxygen as tolerated - Aspiration precautions, pt currently NPO 5) HTN: BP in the 140s/80s - Continue IV Metoprolol 5mg q6hr 6) Hypercalcemia: Normalized and now actually low - Continue correction as per pharmacy DVT ppx: Pt very immobilized, however due to concerns for GI bleeding will stop Lovenox Code: Full FEN: NPO as above, mIVF Dispo: Anticipate prolonged hospitalization due to severity of withdrawals Time-Based Coding :: 70 spent with patient and on the chart (including review of chart, obtaining history, exam, reviewing outside data, placing orders, documenting exam and treatment plan, and counseling patient) on 09/21/24. PROFEE Coordinator Of Placement Document charge(s): Yes Charge Codes Subsequent inpatient/observation care: [id number]
[2024-09-21] MEDS: THIAMINE 100 MG in SODIUM CHLORIDE 0.9% 100 ML 404 MG IV (09:13)
--- NOTE | 2024-09-21 09:38 | PC.NURSE ---
Addendum entered by Larisa Cabral R.N. 09/21/24 11:35: 10:00 Pt continues to mumble words and groaning. Mouth swabbed, black, tarry substance covering inside of mouth. Pt able to open eyes on command but does not maintain eye contact. Transported to CT on monitor. O2 92%-97% on RA during transport and CT. Original Note: 07:15 Pt groaning, mumbled words, not following commands. Weak, wet cough. Mouth coated in black-tinged sputum. Provider Dr. Kedar Browning at bedside. Hemacult of oral secretions positive. New orders received. CIWA 12, lorazepam administered as ordered (see AUG). Per plan, dexmedetomidine decreased to 1.3mcg/kg/hr (documented initially at 1mcg/kg/hr d/t typo and unable to edit titration from 921). Pt yelling out, thrashing in bed. Able to state, I need water. Pt educated on swallow safety, mouth swabbed for moistening. Able to open eyes on command. Promptly eyes closed again, only responding in grunting sounds to nursing staff. Dr. Browning updated, new orders received. Seizure pads in place, suction at bedside, call light within reach, bed alarm active. Care ongoing.
--- NOTE | 2024-09-21 10:04 | DI.CT.S_ITS ---
PROCEDURE: CT HEAD/BRAIN WO CON INDICATIONS: altered mental status TECHNIQUE: Noncontrast 4.5 mm thick angled axial sections acquired from the foramen magnum to the vertex, with coronal and sagittal reformats. For radiation dose reduction, the following was used: automated exposure control, adjustment of mA and/or kV according to patient size. COMPARISON: [facility], CT, CT HEAD/BRAIN WO CON, 10/02/2020, 15:45. FINDINGS: Image quality: Diagnostic. CSF spaces: Basal cisterns are patent. No extra-axial fluid collections. The ventricles are symmetric in size and shape. Brain: No intracranial bleeds or masses. There is cerebral volume loss for age, with resultant ventricular and sulcal prominence. There are periventricular and deep white matter chronic small vessel ischemic changes. There is intracranial internal carotid artery atherosclerosis. Skull and face: Calvarium and visualized facial bones appear intact, without suspicious lesions. Sinuses: Visualized sinuses and mastoids are clear. IMPRESSION: No acute intracranial pathology. Dictated by: Marcel Beyer M.D. on 09/21/2024 at 10:58 Approved by: Marcel Beyer M.D. on 09/21/2024 at 10:58
[2024-09-21] MEDS: MAGNESIUM SULFATE 2 GM/50 ML PIGGYBACK IV (11:11)
[2024-09-21] MEDS: POTASSIUM CHLORIDE IN WATER 10 MEQ/100 ML PIGGYBACK 100 MEQ IV ×2 (11:11→12:26)
[2024-09-21] MEDS: CEFEPIME 2 GM in SODIUM CHLORIDE 0.9% 100 ML IV ×2 (11:12→18:05)
[2024-09-21] MEDS: dexmedeTOMIDine in 0.9 % NaCL 400 MCG/100 ML PLAST..BAG 17.875 MCG IV (11:53)
[2024-09-21] MEDS: AZITHROMYCIN 500 MG in DEXTROSE 5% IN WATER 250 ML 250 MG IV (12:27)
[2024-09-21 12:28] LABS: Add Manual Diff / Slide Review NO; Basophils Absolute Auto 0 /uL (0-100); Basophils Percent Auto 0.3 % (0-2); Eosinophils Absolute Auto 100 /uL (0-450); Eosinophils Percent Auto 0.5 % (2-4); Hematocrit 26.4 % (41-53); Lymphocytes Absolute Auto 800 /uL (1100-4500); Lymphocytes Percent Auto 7.5 % (25-40); Mean Corpuscular HGB Conc 34.1 % (30-36); Mean Corpuscular Volume 105.4 fL (80-100); Monocytes Absolute Auto 600 /uL (0-900); Monocytes Percent Auto 5.5 % (3-14); Neutrophils Absolute Auto 9400 /uL (1500-7000); Neutrophils Percent Auto 86.2 % (50-75); Platelet Count 108 X10^3/uL (150-400); Red Blood Cell Count 2.51 X10^6/uL (4.5-5.9); Red Cell Distribution Width 13.6 % (11.6-14.8); White Blood Cell Count 10.9 X10^3/uL (4.5-11.0)
[2024-09-21 12:39] LABS: Alanine Aminotransferase 41 IU/L (<50); Albumin 2.6 g/dL (3.5-5.0); Albumin Globulin Ratio 0.9 (1.0-2.8); Alkaline Phosphatase 58 U/L (38-126); Aspartate Aminotransferase 61 IU/L (17-59); BUN Creatinine Ratio 24.3 (6-22); Bilirubin Total 0.4 mg/dL (0.2-1.3); Blood Urea Nitrogen 18 mg/dL (9-20); Calcium 7.4 mg/dL (8.4-10.2); Carbon Dioxide 22 mmol/L (22-32); Chloride 116 mmol/L (98-107); Estimated Glomerular Filt Rate > 60 mL/min (>60); Globulin 2.9 g/dL (1.7-4.1); Glucose 93 mg/dL (80-110); HEMOLYSIS < 15 (0-50); Potassium 3.5 mmol/L (3.4-5.1); Sodium 144 mmol/L (137-145); Total Protein 5.5 g/dL (6.3-8.2)
--- NOTE | 2024-09-21 13:23 | DI.ECHO.S_ITS ---
[facility] : : [address] : : [place] : : [id number] : : Phone: [phone] Echocardiogram Report + + :Name: BO AHN Study Date: 09/21/2024 Height: 67 in : :[facility] ReadingLocation: Weight: 155 lb : : Gender: Male BSA: 1.8 m2 : :: 1960 Age: 64 yrs BP: 172/96 mmHg: :Reason For Study: TACHYCARDIA : :Ordering Physician: JUAN, : :MELY Performed By: Alexandria Vanegas : :Referring: MELY MARTINEZ : + + Interpretation Summary 1) Normal left ventricular thickness, size, wall motion, and systolic function (EF 55-60%). 2) Mildly enlarged right ventricle with normal function. 3) There is mild mitral regurgitation. 4) Compared to the Edcho done 11/09/2014, no significant change. Procedure: A two-dimensional transthoracic echocardiogram with color flow and Doppler was performed. The study quality was technically difficult. There is no prior echocardiogram noted for this patient. The patient was in sinus rhythm with heart rates between 88-97 bpm during the exam. Left Ventricle: The left ventricle is normal in size and wall thickness. The ejection fraction is estimated to be 55-60%. Left ventricular wall motion is normal. Diastolic parameters suggest a relaxation abnormality of the left ventricle, consistent with probable normal filling pressures. Right Ventricle: The right ventricle is mildly dilated. The right ventricular systolic function is normal. Atria: The left atrial size is normal. Right atrial size is normal. There is no Doppler evidence for an interatrial shunt. Mitral Valve: The mitral valve leaflets appear to open well. There is no mitral annular calcification. There is mild mitral regurgitation. Aortic Valve: The aortic valve is trileaflet. The aortic valve opens well. There is no aortic valve stenosis. No aortic regurgitation is present. Tricuspid Valve: The tricuspid valve leaflets are thin and pliable. There is mild tricuspid regurgitation. Right ventricular systolic pressure is estimated to be 36 mmHg plus the clinically estimated CVP which cannot be estimated on this exam. Pulmonic Valve: The pulmonic valve leaflets are thin and pliable; valve motion is normal. There is no pulmonic valvular regurgitation. Great Vessels: The aortic root is normal size. The dimensions of the ascending aorta are normal. The inferior vena cava was not well visualized. Pericardium/ Pleura There is no pericardial effusion. There is no pleural effusion. MMode/2D Measurements & Calculations LVIDd: 4.1 cm LVOT diam: 2.1 cm LVIDs: 3.0 cm Ao root diam: 3.4 cm FS: 27.0 % asc Aorta Diam: 3.2 cm IVSd: 0.91 cm LVPWd: 0.80 cm LV [place]. diameter/BSA (cm/m^2): 2.3 LV sys. diameter/BSA (cm/m^2): 1.7 LA A2 area: 18.1 cm2 RA long axis: 4.8 cm LA A4 area: 20.3 cm2 RA area: 12.8 cm2 LA length (vol): 5.2 cm RA vol: 29.5 ml LA vol: 60.2 ml RA : 16.2 ml/m2 LA vol index: 33.2 ml/m2 RVD1 (basal): 4.3 cm RVD2 (mid): 4.1 cm TAPSE: 1.8 cm Doppler Measurements & Calculations Ao V2 max: 122.3 cm/sec LVOT Max Adryan: 105.0 cm/sec Ao V2 mean: 87.9 cm/sec LV V1 max P.4 mmHg Ao max P.0 mmHg LV V1 VTI: 17.9 cm Ao mean P.4 mmHg RUBENS(I,D): 3.2 cm2 Ao V2 VTI: 19.9 cm RUBENS(V,D): 3.1 cm2 sev ratio: 0.90 RUBENS indexed to BSA (cm^2/m^2): 1.8 MV E max adryan: 84.3 cm/sec TR max adryan: 300.5 cm/sec MV A max adryan: 75.9 cm/sec TR max P.1 mmHg MV E/A: 1.1 PA V2 max: 74.5 cm/sec Med Peak E' Adryan: 11.7 cm/sec PA V2 mean: 52.9 cm/sec E/E' med: 7.2 PA mean P.2 mmHg Lat Peak E' Adryan: 15.0 cm/sec PA pr(Accel): 45.6 mmHg E/E' lat: 5.6 E/e' average: 6.4 MV dec time: 0.14 sec SV(LVOT): 63.7 ml Reading Physician:04:35 PM
--- NOTE | 2024-09-21 13:23 | DI.US.S_ITS ---
PROCEDURE: US ABDOMEN LIMITED INDICATIONS: alcoholism, steatosis TECHNIQUE: Real-time scanning was performed of the abdominal and retroperitoneal organs, with image documentation. COMPARISON: [facility], , US ABDOMEN LIMITED, 01/20/2023, 20:41. FINDINGS: Liver: Liver is normal in size. Diffusely increased liver parenchymal echotexture is seen. Main portal vein is patent and show normal hepatopetal flow. Gallbladder: No gallstones. No gallbladder wall thickening or pericholecystic fluid. Contracted gallbladder. No sonographic Ramires's sign. Biliary ducts: Intrahepatic bile ducts are non-dilated. Extrahepatic bile duct caliber measures 4.6 mm. Normal is 6-7 mm or less in diameter, or 10 mm or less post-cholecystectomy. Pancreas: Visualized portions of the pancreas are sonographically normal. Miscellaneous: No free abdominal fluid. IMPRESSION: 1. Contracted gallbladder. No sonographic evidence of acute cholecystitis. No biliary ductal dilatation. 2. Moderate to severe hepatic steatosis, no gross solid appearing hepatic lesion. Dictated by: Marcel Beyer M.D. on 09/21/2024 at 15:35 Approved by: Marcel Beyer M.D. on 09/21/2024 at 15:36
[2024-09-21] MEDS: dexmedeTOMIDine in 0.9 % NaCL 400 MCG/100 ML PLAST..BAG 9.75 MCG IV (19:44)
[2024-09-22] VITALS (75 sets, daily range): BP systolic 74–164; BP diastolic 45–105; PULSE 95–154; RESP 16–52; TEMP 36.4–37.3; O2SAT 79–100
[2024-09-22] MEDS: DEXTROSE 5%-0.9% NS 1,000 ML 100 ML IV (01:12)
[2024-09-22] MEDS: LORazepam 2 MG/ML INJ IV ×4 (01:50→20:58)
[2024-09-22] MEDS: CEFEPIME 2 GM in SODIUM CHLORIDE 0.9% 100 ML IV ×3 (03:01→18:01)
[2024-09-22] MEDS: dexmedeTOMIDine in 0.9 % NaCL 400 MCG/100 ML PLAST..BAG 13 MCG IV (04:01)
[2024-09-22] MEDS: ONDANSETRON 4 MG/2 ML INJ IV ×2 (04:08→19:40)
[2024-09-22] MEDS: METOPROLOL TARTRATE 5 MG/5 ML INJ IV (04:33)
[2024-09-22] MEDS: MORPHINE 2 MG/ML INJ 1 MG IV ×4 (04:34→18:01)
[2024-09-22 05:14] LABS: Add Manual Diff / Slide Review NO; Basophils Absolute Auto 100 /uL (0-100); Basophils Percent Auto 0.4 % (0-2); Eosinophils Absolute Auto 100 /uL (0-450); Eosinophils Percent Auto 0.5 % (2-4); Hematocrit 32.7 % (41-53); Lymphocytes Absolute Auto 1000 /uL (1100-4500); Lymphocytes Percent Auto 6.5 % (25-40); Mean Corpuscular HGB Conc 33.5 % (30-36); Mean Corpuscular Hemoglobin 35.4 PG (26-34); Mean Corpuscular Volume 105.6 fL (80-100); Monocytes Absolute Auto 1000 /uL (0-900); Monocytes Percent Auto 6.6 % (3-14); Neutrophils Absolute Auto 13500 /uL (1500-7000); Platelet Count 138 X10^3/uL (150-400); Red Cell Distribution Width 13.9 % (11.6-14.8); White Blood Cell Count 15.7 X10^3/uL (4.5-11.0)
[2024-09-22 05:26] LABS: Alanine Aminotransferase 41 IU/L (<50); Albumin 2.6 g/dL (3.5-5.0); Albumin Globulin Ratio 0.9 (1.0-2.8); Alkaline Phosphatase 69 U/L (38-126); Aspartate Aminotransferase 60 IU/L (17-59); BUN Creatinine Ratio 16.5 (6-22); Bilirubin Total 0.6 mg/dL (0.2-1.3); Blood Urea Nitrogen 14 mg/dL (9-20); Calcium 7.6 mg/dL (8.4-10.2); Carbon Dioxide 19 mmol/L (22-32); Chloride 118 mmol/L (98-107); Estimated Glomerular Filt Rate > 60 mL/min (>60); Glucose 145 mg/dL (80-110); HEMOLYSIS < 15 (0-50); Potassium 3.3 mmol/L (3.4-5.1); Sodium 146 mmol/L (137-145); Total Protein 5.6 g/dL (6.3-8.2)
--- NOTE | 2024-09-22 05:45 | PC.NURSE ---
night shift manager RN note pt oriented to self, restless/aggitated in bed attempting to get up and reaching for lines, mumbled speech, CIWA 4-14, precedex titrated for RASS -1/0, prn ativan with effect, c/o pain in back, prn analgesic with effect, SR/ST 90-120s, hypertensive with aggiation, O2 sats >92% on RA, lungs rhonchi t/o, occasional moist cough, abd round soft with BS, coffee ground emesis, prn zofran, oral care provided, attempted oral suction with poor results, pt bitting suction cath or refusing, rojas draining clear shoshana yellow urine, bed alarm on, seizure pads in place, call foley within reach, on going care
[2024-09-22 05:52] LABS: Magnesium 1.7 mg/dL (1.6-2.3)
--- NOTE | 2024-09-22 08:02 | DI.RAD.S_ITS ---
PROCEDURE: XR ABDOMEN MIN 2V INDICATIONS: Distended abd, pain TECHNIQUE: 2 views of the abdomen were acquired. COMPARISON: [facility], CT, CT ABDOMEN PELVIS W CON, 09/18/2024, 20:12. FINDINGS: Surgical changes and devices: Surgical clips are noted in right upper and lower quadrant abdomen.. Bowel: No pneumoperitoneum. Ktrs-dx-evpebzmo air distended bowel loops are noted throughout abdomen. Mild fecal stasis throughout the colon is seen. No gross pneumoperitoneum. Soft tissues: No masses; visualized solid organ contours appear normal in size. No suspicious abdominal calcifications. Bones: No suspicious bony abnormalities. IMPRESSION: Finding is concerning for ileus versus distal small bowel obstruction. Clinical correlation and follow-up is recommended. No gross pneumoperitoneum. Dictated by: Marcel Beyer M.D. on 09/22/2024 at 9:39 Approved by: Marcel Beyer M.D. on 09/22/2024 at 9:40
--- NOTE | 2024-09-22 08:06 | PM.PN.IH.1 ---
Subjective Subjective Date Patient Seen: 09/22/24 Time Patient Seen: 07:55 Interval history: Patient alert but not at all oriented, somewhat agitated and speaking in slurred/mumbling speech that is not very intelligible. Precedex at 0.7 mcg/kg/hr, essentially unchanged since yesterday. Per nursing he had more of the coffee-ground emesis overnight, though not as much as night before last. BP has become more soft well heart rate has increased and abdomen now distended, which is a new finding. Exam Vital Signs (past 8 hours): - 09/22/24 00:08 09/22/24 00:11 09/22/24 00:11 Temperature Pulse Rate 115 H 111 H Respiratory Rate 35 H 39 H Blood Pressure 142/78 H 142/78 H Pulse Oximetry 98 Oxygen Delivery Method Oxygen Flow Rate 09/22/24 01:00 09/22/24 01:00 09/22/24 02:00 Temperature Pulse Rate 118 H 109 H Respiratory Rate 36 H 42 H Blood Pressure 122/69 Pulse Oximetry 95 96 Oxygen Delivery Method Oxygen Flow Rate 0 09/22/24 02:00 09/22/24 02:10 09/22/24 03:00 Temperature Pulse Rate 115 H Respiratory Rate 36 H Blood Pressure 125/58 L 121/60 Pulse Oximetry Oxygen Delivery Method Oxygen Flow Rate 0 09/22/24 03:00 09/22/24 04:00 09/22/24 04:00 Temperature 98.5 F Pulse Rate 109 H 126 H Respiratory Rate 37 H 41 H Blood Pressure Pulse Oximetry 97 97 Oxygen Delivery Method Room Air Oxygen Flow Rate 0 0 09/22/24 04:01 09/22/24 04:01 09/22/24 05:00 Temperature Pulse Rate 127 H 95 H Respiratory Rate 42 H 39 H Blood Pressure 147/105 H 102/79 Pulse Oximetry 97 97 Oxygen Delivery Method Oxygen Flow Rate 0 0 09/22/24 06:00 09/22/24 07:00 09/22/24 07:01 Temperature Pulse Rate 119 H 121 H Respiratory Rate 35 H 43 H Blood Pressure 107/73 100/81 Pulse Oximetry 91 93 Oxygen Delivery Method Oxygen Flow Rate 0 09/22/24 07:01 09/22/24 07:32 09/22/24 07:32 Temperature Pulse Rate 121 H 118 H Respiratory Rate 39 H 34 H Blood Pressure 106/70 Pulse Oximetry 94 97 Oxygen Delivery Method Oxygen Flow Rate Fraction of Inspired Oxygen 28 SaO2/FiO2 Ratio 332 Oxygen Delivery Method Room Air Oxygen Flow Rate 0 Narrative Exam Narrative: General: lying in bed, grunting and speaking unintelligibly HEENT: NC/AT, EOMI, moist membranes CV: tachycardic to 130s, normal S1-S2, no m/g/r Resp: CTAB, comfortable WOB Abd: Soft, moderately distended, nontender to palpation, difficult to discern BS vs transmitted voice sounds due to grunting Ext: No edema Skin: No rash or lesions noted Neuro: alert, not oriented, does not follow commands, moves all extremities Objective Labs 09/22/24 04:14 09/22/24 04:14 Labs: Laboratory Results - last 24 hr 09/21/24 09/21/24 09/22/24 08:47 12:22 04:14 WBC 10.9 15.7 H RBC 2.51 L 3.10 L Hgb 9.0 L 11.0 L Hct 26.4 L 32.7 L MCV 105.4 H 105.6 H MCH 36.0 H 35.4 H MCHC 34.1 33.5 RDW 13.6 13.9 Plt Count 108 L 138 L Neut % (Auto) 86.2 H 86.0 H Lymph % (Auto) 7.5 L 6.5 L [place] % (Auto) 5.5 6.6 Eos % (Auto) 0.5 L 0.5 L Baso % (Auto) 0.3 0.4 Neut # (Auto) 9400 H 38950 H Lymph # (Auto) 800 L 1000 L [place] # (Auto) 600 1000 H Eos # (Auto) 100 100 Baso # (Auto) 0 100 ABG Sample Site Right radial ABG pH 7.42 ABG pCO2 37.4 ABG pO2 67 L ABG HCO3 24 ABG Total CO2 23 ABG O2 Saturation 93 L ABG Base Excess -0.4 Demetris Test Positive Sodium 144 146 H Potassium 3.5 3.3 L Chloride 116 H 118 H Carbon Dioxide 22 19 L BUN 18 14 Creatinine 0.74 0.85 Estimated GFR > 60 > 60 BUN/Creatinine Ratio 24.3 H 16.5 Glucose 93 145 H Calcium 7.4 L 7.6 L Magnesium 1.7 Total Bilirubin 0.4 0.6 AST 61 H 60 H ALT 41 41 Alkaline Phosphatase 58 69 Total Protein 5.5 L 5.6 L Albumin 2.6 L 2.6 L Globulin 2.9 3.0 Albumin/Globulin Ratio 0.9 L 0.9 L PFSH Medical History Alcoholism in remission Acute upper GI bleed Mixed hyperlipidemia History of kidney disease as a child (10/09/16) 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) Essential hypertension (10/09/16) Surgical History Hx of appendectomy (1977) Hx of hernia repair (1999) History of nephrectomy (1977) History of unilateral nephrectomy (10/09/16) Family History Father Congestive heart failure Diabetes mellitus COPD (chronic obstructive pulmonary disease) Mother Hypertension Diabetes mellitus Cancer Social History marital status: household members: spouse and family occupational status: previously employed leisure activities: exercise Smoking Status: Current every day smoker Tobacco: How many years used: 50 alcohol intake: current substance use type: marijuana caffeine: Yes Type(s) of exercise: walking Assessment & Plan Assessment and plan (1) Alcohol withdrawal delirium: Status: Acute (2) Pancreatitis: Qualifiers: Acute pancreatitis complication: no infection or necrosis Chronicity: acute Pancreatitis type: alcohol induced Qualified Code(s): K85.20 - Alcohol induced acute pancreatitis without necrosis or infection Status: Acute (3) Coffee ground emesis: Status: Acute (4) Hypoxia: Status: Acute (5) Essential hypertension: Status: Chronic (6) Hypercalcemia: Status: Acute Assessment & Plan narrative: 64yo male with known alcoholism, COPD, HTN, BPH who presented with shortness of breath and tightness in his chest. Found to have pancreatitis, rapid progression into alcohol withdrawal. 1) Alcohol withdrawal: On Precedex 0.7mg/kg/hr, reduced dose compared to yeseterday. Alert but not oriented and continues to have significant agitation. CT head from yesterday unremarkable. - Continue Precedex, titrate down as tolerated - Continue Phenobarbital - Ativan PRN - Monitor closely for ability to protect airway, may need intubated - CIWA protocol - Banana bag daily 2) Pancreatitis: Lipase trending down appropriately and has normalized. Pt without any evidence of pain on exam. Abdomen is newly distended with decreased bowel sounds per nursing who had him yesterday, concerning for possible bowel obstruction. - CT abdomen/pelvis - Lactate - Monitor lipase - NPO 3) Coffee ground emesis: Concerning for upper GI bleed. H/H very gradually falling but stabilized this AM, more likely dilutional. No physical stigmata of cirrhosis aside from newly distended abdomen, CT in the ED with only steatosis. Likely gastritis/esophagitis per field contractor surgeon. Did have some esophageal thickening on CT scan. - Trend H/H - Monitor for output closely - Discussed with Dr Hansen, surgery. Recommends outpatient EGD assuming stability. If need for inpatient scope would need to be transferred to location with GI where esophageal banding could be completed if needed. - IV Protonix 40mg BID 4) Hypoxia: New onset 2 nights ago night after concern for aspiration. CXR yesterday with bibasilar opacities, questionable pneumonia. - Cefepime + Azithromycin (09/21- ) for likely pneumonia - Wean O2 as tolerated - Aspiration precautions, pt currently NPO 5) HTN: BP soft yesterday and today, has not required IV metoprolol overnight or this morning. Downtrending overall with increased tachycardia with leukocytosis concerning for possible sepsis process. - Hold IV metoprolol 5mg q6hr - 1L LR bolus - Blood/urine cultures to assess for systemic infection 6) Hypercalcemia: Normalized - Continue correction as per pharmacy DVT ppx: Pt very immobilized, however due to concerns for GI bleeding will hold Lovenox Code: Full FEN: NPO as above, mIVF Dispo: Anticipate prolonged hospitalization due to severity of withdrawals, possible transfer if becomes more complicated Time-Based Coding :: 40 minutes spent with patient and on the chart (including review of chart, obtaining history, exam, reviewing outside data, placing orders, documenting exam and treatment plan, and counseling patient) on 09/22/2024. PROFEE Associate Professor Of Communication Document charge(s): Yes Charge Codes Subsequent inpatient/observation care: [id number]
[2024-09-22 08:38] LABS: Appearance Urine UA CLEAR; Bilirubin Urine UA 1+ (NEGATIVE); Color Urine UA YELLOW; Glucose Urine UA NEGATIVE (Negative); Ketones Urine UA 1+ (NEGATIVE); Leukocyte Esterase Urine UA NEGATIVE (NEGATIVE); Nitrite Urine UA POSITIVE (Negative); Occult Blood Urine UA 2+ (Negative); Protein Urine UA 3+ (Negative); Specific Gravity Urine UA 1.025 (1.000-1.035)
[2024-09-22] MEDS: POTASSIUM CHLORIDE IN WATER 10 MEQ/100 ML PIGGYBACK 100 MEQ IV ×4 (08:43→13:01)
[2024-09-22] MEDS: MAGNESIUM SULFATE 2 GM/50 ML PIGGYBACK IV (08:44)
[2024-09-22] MEDS: DEXTROSE 5%-LACTATED RINGERS 1,000 ML 100 ML IV (08:53)
[2024-09-22 08:55] LABS: Amorphous Sediment Urine 1+; Bacteria Urine Occasional (0-1); Culture Indicated Urine Specimen Cultured; RBC Urine 10-30/HPF (0-5/HPF); Squamous Epithelial Cell Urine 1-5 /HPF (0-5/HPF); Urine Volume 10mL (spun); WBC Urine 5-10/HPF (0-5/HPF)
[2024-09-22 08:58] LABS: Ictotest Urine Negative (Negative)
[2024-09-22 09:05] LABS: Lactate (Lactic Acid) 1.6 mmol/L (0.7-2.1); Lipase 192 U/L (23-300)
[2024-09-22] MEDS: PANTOPRAZOLE 40 MG VIAL IV ×2 (09:22→20:58)
[2024-09-22] MEDS: SODIUM CHLORIDE 0.9% FLUSH 10 ML IV (09:22)
[2024-09-22] MEDS: THIAMINE 100 MG in SODIUM CHLORIDE 0.9% 100 ML 404 MG IV (09:22)
--- NOTE | 2024-09-22 09:36 | PC.NURSE ---
Addendum entered by Larisa Cabral R.N. 09/22/24 16:53: 14:06 pt hypotensive, provider notified. New orders received. Care ongoing. Addendum entered by Larisa Cabral R.N. 09/22/24 13:43: Pt significant other Joslyn at bedside. Joslyn states pt has had a history of esophageal varices. Pt reports seeing, little spaceships all over, but I know they aren't there. Frequent oral care, black tarry oral secretions present each time. No emesis as of yet. CIWA 11. Care ongoing. Addendum entered by Larisa Cabral R.N. 09/22/24 10:44: 10:[address] scan with this RN. Vitals WDL during scan and transport back. Oxygenation saturation decreasing to 86% on RA upon arrival to room on transport monitor. Pt encouraged to take deep breaths, awake and alert, eye contact. Pt placed on 4L oximask, saturation 92%. Pt communicative with family at bedside. Pt now asleep, saturation 90%-92% on 4L oximask. RT notified. Care ongoing. Original Note: 07:30 Pt alert to self only. Abdomen round, large, distended, and firm. BP trending down, HR trending up, RR trending up. Provider notified. Pt c/o abd pain, but then when asked to rate, pt denies pain. Pt restless, groaning, and moving frequently in bed. Pt periodically resting quietly. New orders received. O2 97% on RA, RR 30's to 40's, lung sounds coarse and rhonchi throughout. Seizure pads in place, suction at bedside, call light within reach, bed alarm active, care ongoing.
--- NOTE | 2024-09-22 10:01 | DI.CT.S_ITS ---
PROCEDURE: CT CHEST ABD PEL W CON INDICATIONS: possible SBO TECHNIQUE: After the administration of intravenous contrast, 5 mm thick sections acquired from the lung apices to the symphysis. 5 mm coronal and sagittal reformats were performed, with additional 7 mm MIP reformats through the lungs. For radiation dose reduction, the following was used: automated exposure control, adjustment of mA and/or kV according to patient size. COMPARISON: [facility], CT, CT ABDOMEN PELVIS W CON, 09/18/2024, 20:12. FINDINGS: Image quality: Excellent. CHEST: Lower Neck: No enlarged lymph nodes. Thyroid: Normal CT appearance. Axillae: No enlarged lymph nodes. Chest Wall: Mild gynecomastia. No suspicious mass. Lungs and Pleura: Small dependent bilateral pleural effusions. Bilateral lower lobe alveolar opacities. Respiratory motion. Bronchial wall thickening. Heart: Mild cardiomegaly. No significant pericardial effusion. Thoracic Vessels: The aorta and pulmonary arteries demonstrate normal size. Mediastinum and Christiane: No enlarged lymph nodes. Esophagus: The esophagus is dilated and fluid-filled to the level of the thoracic inlet. There is moderate wall thickening at the GE junction and small hiatal hernia present. ABDOMEN: Liver: Decreased steatosis. No solid mass. Gallbladder: No wall thickening or calcified stones. Biliary ducts: No biliary dilation. Pancreas: There is a new area irregular hypodensity/hypoenhancement within the pancreatic head measuring roughly 2.7 cm compared to the most recent prior. No visible ductal dilatation. No calcifications. Spleen: Normal size. Coarse calcifications Adrenal Glands: No adrenal nodules. Kidneys and Ureters: The right kidney is surgically absent. There is cortical scarring in the left kidney. No hydronephrosis or nephrolithiasis. No hydroureter. Stomach and Bowel: The stomach is mildly dilated and fluid-filled. Small bowel loops are diffusely distended and fluid-filled. Several air-fluid levels are present. There is a short segment of terminal ileum, roughly 4 cm in length which is stenosed and serves as a transition point. Moderate quantity of stool is present in the colon proximally. The distal colon is decompressed and contains numerous diverticula. Peritoneum: No free air. Moderate amount mesenteric, interloop fluid and upper abdominal ascites. Ventral Wall: No significant ventral hernia. Abdominal Nodes: No bulky mesenteric or retroperitoneal adenopathy. Vessels: Aorta is normal size. Decreased IVC caliber indicating low volume. Portal vein is patent. The abdominal aorta, IVC, and portal vein are of normal caliber. Mesenteric vasculature appears patent. PELVIS: Pelvic Organs: Moderate prostatomegaly. Bladder: Decompressed urinary bladder containing a Stephens catheter. There is prominent nodular wall thickening anteriorly which was not present prior and may be related to redundant mucosa. Pelvic Nodes: No enlarged lymph nodes. Miscellaneous: Surgical clips scattered throughout the pelvis. 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 No suspicious bone lesions. IMPRESSION: Hypoenhancement involving the head and uncinate process of the pancreas suggesting development of necrotizing pancreatitis compared to prior. There is no gas in the soft tissue. No vascular complications. Development severe ileus versus bowel obstruction with transition point at the terminal ileum. Fluid-filled, dilated esophagus with narrowing at the GE junction. The degree of edema at the GE junction is less prominent compared to prior, however fluid in the esophagus is seen to the level of the thoracic inlet in the patient is at high risk of aspiration. Development of bilateral pleural effusions and bibasilar airspace opacities. This may be reactive and/or aspiration pneumonia. Increase in intraperitoneal inflammation and ascites since the prior exam. Flat IVC indicates continue hypovolemia. Report alert called to the ordering provider by call center. Dictated by: Kirsty Jones M.D. on 09/22/2024 at 12:42 Approved by: Kirsty Jones M.D. on 09/22/2024 at 12:58
[2024-09-22] MEDS: dexmedeTOMIDine in 0.9 % NaCL 400 MCG/100 ML PLAST..BAG 8.125 MCG IV ×2 (12:26→20:58)
[2024-09-22] MEDS: AZITHROMYCIN 500 MG in DEXTROSE 5% IN WATER 250 ML 250 MG IV (12:29)
[2024-09-22] MEDS: LACTATED RINGERS 1,000 ML 1000 ML IV (14:15)
[2024-09-22] MEDS: metroNIDAZOLE 500 MG/100 ML PIGGYBACK 100 MG IV (16:11)
[2024-09-22 16:22] LABS: Allen Test for ABG Passed? Positive; Blood Gas Collection Site Left Radial; HCO3 ABG 21 mmol/L (23-27); Oxygen Saturation ABG 93 % (95-100); PO2 ABG 62 mmHg (80-100); TCO2 ABG 20 mmol/L (23-27); pH ABG 7.47 (7.35-7.45)
--- NOTE | 2024-09-22 18:04 | PM.DS.IH.1 ---
History of Present Illness History of Present Illness Date Patient Seen: 09/22/24 Time Patient Seen: 18:04 Chief complaint: vomiting, sob Narrative: 64-year-old male with a history of nonspecific tachycardia, COPD, alcoholism, hypertension, hyperlipidemia. Woke up feeling SOB with sensation of chest tightness 1-2 hours prior to ER presentation. No cough or fever. Did have an episode of emesis, but reported this was normal for him. Consumes 3-4 20 oz malt liquor beverages daily, last ETOH approximately 18 hours prior to presentation. Initial labs notable for WBC 10.8, H/H 14/41.1, MCV 104.1, platelets 226, D-dimer 4098, Ca 14.5, Mg 1.1, AST 123, ALT 88, ETOH 24. CT findings consistent with acute pancreatitis. Suspected to be acutely withdrawing from alcohol, but at time of admission he was not tremulous. Admitted for IV fluids, electrolyte correction, and management of acute pancreatitis. Discharge Providers Provider Date of admission: 09/18/24 22:03 Discharge Date: 09/22/24 Primary care physician: Miguel Ángel Bruce MD Discharge provider: Miguel Ángel Bruce MD Summary Hospital Course Discharge Diagnosis: #alcohol withdrawal #pancreatitis #coffee-ground emesis #hypoxia #hypotension #tachycardia #hypercalcemia #hypomagnesemia Hospital Course: Patient became progressively more agitated as ETOH withdrawal worsened and eventually required transfer to ICU for sedation with Precedex. Received IV phenobarbital for seizure prophylaxis x48 hours, Ativan PRN per CIWA protocol, banana bag daily for nutritional repletion. AMS/delirium persisted, CT head negative for acute intracranial process. Precedex weaned as low as 5 mcg/kg/hr, but remained agitated and delirious. Pancreatitis worsen initially with lipase increasing 1782 -> 7746 before trending downward 5770-> 946-> 192. Did have an episode of coffee-ground emesis that was suctioned from his mouth on 3rd night of hospitalization, with a smaller amount occurring again on 4th night. Discussed concern for upper GI bleed with on-call surgeon who recommended outpatient EGD if stabilized. Deemed too risky to scope inpatient and recommended transfer to another location if needed due to risk of variceal bleeding/need for banding. Developed significant abdominal distention on hospital day 5. Repeat CT abdomen/pelvis showed new hypoenhancement involving the head and uncinate process of the pancreas suggesting development of necrotizing pancreatitis, development of severe ileus vs bowel obstruction with transition point at the terminal ileum, improved esophageal edema compared to prior but significant amount of fluid in esophagus indicating high-risk of aspiration, development of bilateral pleural effusions (reactive vs aspiration pneumonia), interval increase of intraperitoneal inflammation and ascites. Was determined patient needed transfer to higher level of care given likely GI and/or surgical intervention required. Status at Discharge Cognitive/behavioral status at discharge: confused and agitated Functional status at discharge: bed bound Overall status at discharge: patient is not back to baseline Time Spent with Patient Time spent: Greater than 30 minutes Exam Vital Signs (past 8 hours): - 09/22/24 10:22 09/22/24 10:24 09/22/24 10:24 Temperature Pulse Rate 110 H 110 H Respiratory Rate 38 H Blood Pressure 102/67 Pulse Oximetry 86 L 87 L Oxygen Delivery Method Oxygen Flow Rate 09/22/24 10:30 09/22/24 10:30 09/22/24 10:30 Temperature Pulse Rate 111 H Respiratory Rate 39 H Blood Pressure 107/71 Pulse Oximetry 92 93 Oxygen Delivery Method Oxygen Flow Rate 4 09/22/24 10:45 09/22/24 10:53 09/22/24 10:53 Temperature Pulse Rate 121 H 125 H Respiratory Rate 41 H 42 H Blood Pressure 111/75 Pulse Oximetry 92 91 Oxygen Delivery Method Oxygen Flow Rate 09/22/24 11:00 09/22/24 11:00 09/22/24 11:00 Temperature 97.6 F Pulse Rate 124 H Respiratory Rate 36 H Blood Pressure 111/69 Pulse Oximetry 92 Oxygen Delivery Method Oxygen Flow Rate 09/22/24 11:15 09/22/24 11:30 09/22/24 11:30 Temperature Pulse Rate 127 H 127 H Respiratory Rate 44 H 43 H Blood Pressure 107/73 Pulse Oximetry 93 93 Oxygen Delivery Method Oxygen Flow Rate 09/22/24 11:45 09/22/24 12:00 09/22/24 12:00 Temperature 98.0 F Pulse Rate 128 H 118 H Respiratory Rate 35 H 40 H Blood Pressure Pulse Oximetry 93 93 Oxygen Delivery Method Oxygen Flow Rate 09/22/24 12:00 09/22/24 12:00 09/22/24 12:30 Temperature Pulse Rate 120 H Respiratory Rate 37 H Blood Pressure 98/70 Pulse Oximetry 95 Oxygen Delivery Method Room Air Oxygen Flow Rate 09/22/24 12:30 09/22/24 13:30 09/22/24 13:30 Temperature Pulse Rate 120 H Respiratory Rate 46 H Blood Pressure 107/67 104/67 Pulse Oximetry 93 Oxygen Delivery Method Oxygen Flow Rate 09/22/24 13:45 09/22/24 14:06 09/22/24 14:06 Temperature Pulse Rate 116 H 110 H Respiratory Rate 35 H 38 H Blood Pressure 104/67 74/45 L Pulse Oximetry 94 Oxygen Delivery Method Oxygen Flow Rate 09/22/24 14:10 09/22/24 14:10 09/22/24 14:13 Temperature Pulse Rate 113 H Respiratory Rate 42 H Blood Pressure 85/50 L 85/50 L Pulse Oximetry 95 Oxygen Delivery Method Oxygen Flow Rate 09/22/24 14:30 09/22/24 14:30 09/22/24 15:00 Temperature 99.1 F Pulse Rate 106 H Respiratory Rate 44 H Blood Pressure 94/55 L Pulse Oximetry 94 Oxygen Delivery Method Oxygen Flow Rate 09/22/24 15:01 09/22/24 15:01 09/22/24 16:00 Temperature Pulse Rate 104 H Respiratory Rate 42 H Blood Pressure 104/59 L Pulse Oximetry 94 Oxygen Delivery Method Room Air Oxygen Flow Rate 09/22/24 16:00 09/22/24 16:02 09/22/24 16:02 Temperature 97.6 F Pulse Rate 113 H Respiratory Rate 39 H Blood Pressure 112/63 Pulse Oximetry 94 Oxygen Delivery Method Oxygen Flow Rate 09/22/24 16:23 09/22/24 17:00 09/22/24 17:00 Temperature Pulse Rate 108 H 123 H Respiratory Rate 34 H 41 H Blood Pressure 113/75 Pulse Oximetry 94 95 Oxygen Delivery Method Oxygen Flow Rate 09/22/24 17:31 Temperature Pulse Rate 127 H Respiratory Rate 52 H Blood Pressure Pulse Oximetry 95 Oxygen Delivery Method Oxygen Flow Rate Fraction of Inspired Oxygen 28 SaO2/FiO2 Ratio 332 Oxygen Delivery Method Room Air Oxygen Flow Rate 4 Narrative Exam Narrative: General: lying in bed, grunting and speaking unintelligibly HEENT: NC/AT, EOMI, moist membranes CV: tachycardic 110s-120s, normal S1-S2, no m/g/r Resp: CTAB, comfortable WOB Abd: Soft, moderately distended, nontender to palpation, difficult to discern BS vs transmitted voice sounds due to grunting Ext: No edema Skin: No rash or lesions noted Neuro: alert, not oriented, does not follow commands, moves all extremities Objective Imaging CT abdomen/pelvis: Radiologist's impression: PROCEDURE: CT CHEST ABD PEL W CON INDICATIONS: possible SBO TECHNIQUE: After the administration of intravenous contrast, 5 mm thick sections acquired from the lung apices to the symphysis. 5 mm coronal and sagittal reformats were performed, with additional 7 mm MIP reformats through the lungs. For radiation dose reduction, the following was used: automated exposure control, adjustment of mA and/or kV according to patient size. COMPARISON: [facility], CT, CT ABDOMEN PELVIS W CON, 09/18/2024, 20:12. FINDINGS: Image quality: Excellent. CHEST: Lower Neck: No enlarged lymph nodes. Thyroid: Normal CT appearance. Axillae: No enlarged lymph nodes. Chest Wall: Mild gynecomastia. No suspicious mass. Lungs and Pleura: Small dependent bilateral pleural effusions. Bilateral lower lobe alveolar opacities. Respiratory motion. Bronchial wall thickening. Heart: Mild cardiomegaly. No significant pericardial effusion. Thoracic Vessels: The aorta and pulmonary arteries demonstrate normal size. Mediastinum and Christiane: No enlarged lymph nodes. Esophagus: The esophagus is dilated and fluid-filled to the level of the thoracic inlet. There is moderate wall thickening at the GE junction and small hiatal hernia present. ABDOMEN: Liver: Decreased steatosis. No solid mass. Gallbladder: No wall thickening or calcified stones. Biliary ducts: No biliary dilation. Pancreas: There is a new area irregular hypodensity/hypoenhancement within the pancreatic head measuring roughly 2.7 cm compared to the most recent prior. No visible ductal dilatation. No calcifications. Spleen: Normal size. Coarse calcifications Adrenal Glands: No adrenal nodules. Kidneys and Ureters: The right kidney is surgically absent. There is cortical scarring in the left kidney. No hydronephrosis or nephrolithiasis. No hydroureter. Stomach and Bowel: The stomach is mildly dilated and fluid-filled. Small bowel loops are diffusely distended and fluid-filled. Several air-fluid levels are present. There is a short segment of terminal ileum, roughly 4 cm in length which is stenosed and serves as a transition point. Moderate quantity of stool is present in the colon proximally. The distal colon is decompressed and contains numerous diverticula. Peritoneum: No free air. Moderate amount mesenteric, interloop fluid and upper abdominal ascites. Ventral Wall: No significant ventral hernia. Abdominal Nodes: No bulky mesenteric or retroperitoneal adenopathy. Vessels: Aorta is normal size. Decreased IVC caliber indicating low volume. Portal vein is patent. The abdominal aorta, IVC, and portal vein are of normal caliber. Mesenteric vasculature appears patent. PELVIS: Pelvic Organs: Moderate prostatomegaly. Bladder: Decompressed urinary bladder containing a Stephens catheter. There is prominent nodular wall thickening anteriorly which was not present prior and may be related to redundant mucosa. Pelvic Nodes: No enlarged lymph nodes. Miscellaneous: Surgical clips scattered throughout the pelvis. 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 No suspicious bone lesions. IMPRESSION: Hypoenhancement involving the head and uncinate process of the pancreas suggesting development of necrotizing pancreatitis compared to prior. There is no gas in the soft tissue. No vascular complications. Development severe ileus versus bowel obstruction with transition point at the terminal ileum. Fluid-filled, dilated esophagus with narrowing at the GE junction. The degree of edema at the GE junction is less prominent compared to prior, however fluid in the esophagus is seen to the level of the thoracic inlet in the patient is at high risk of aspiration. Development of bilateral pleural effusions and bibasilar airspace opacities. This may be reactive and/or aspiration pneumonia. Increase in intraperitoneal inflammation and ascites since the prior exam. Flat IVC indicates continued hypovolemia. Report alert called to the ordering provider by call center. Dictated by: Kirsty Jones M.D. on 09/22/2024 at 12:42 Approved by: Kirsty Jones M.D. on 09/22/2024 at 12:58 Labs 09/22/24 04:14 09/22/24 04:14 Labs: Laboratory Results - last 24 hr 09/22/24 09/22/24 09/22/24 04:14 08:20 08:41 WBC 15.7 H RBC 3.10 L Hgb 11.0 L Hct 32.7 L MCV 105.6 H MCH 35.4 H MCHC 33.5 RDW 13.9 Plt Count 138 L Neut % (Auto) 86.0 H Lymph % (Auto) 6.5 L Coleman % (Auto) 6.6 Eos % (Auto) 0.5 L Baso % (Auto) 0.4 Neut # (Auto) 20976 H Lymph # (Auto) 1000 L Coleman # (Auto) 1000 H Eos # (Auto) 100 Baso # (Auto) 100 ABG Sample Site ABG pH ABG pCO2 ABG pO2 ABG HCO3 ABG Total CO2 ABG O2 Saturation ABG Base Excess Demetris Test Sodium 146 H Potassium 3.3 L Chloride 118 H Carbon Dioxide 19 L BUN 14 Creatinine 0.85 Estimated GFR > 60 BUN/Creatinine Ratio 16.5 Glucose 145 H Lactate 1.6 Calcium 7.6 L Magnesium 1.7 Total Bilirubin 0.6 AST 60 H ALT 41 Alkaline Phosphatase 69 Total Protein 5.6 L Albumin 2.6 L Globulin 3.0 Albumin/Globulin Ratio 0.9 L Lipase 192 D Urine Color Yellow Urine Appearance Clear Urine pH 6.0 Ur Specific [place] 1.025 Urine Protein 3+ H Urine Glucose (UA) Negative Urine Ketones 1+ H Urine Occult Blood 2+ H Urine Nitrate Positive H Urine Bilirubin 1+ H Ur Bilirubin Confirm Negative Urine Urobilinogen 1.0 Ur Leukocyte Esterase Negative Urine RBC 10-30/hpf H Urine WBC 5-10/hpf H Ur Squamous Epith Cells 1-5 /hpf Amorphous Sediment 1+ Urine Bacteria Occasional (0-1) Ur Culture Indicated? Specimen cultured Vol Urine Centrifuged 10ml (spun) Blood Type Antibody Screen 09/22/24 09/22/24 14:48 16:18 WBC RBC Hgb Hct MCV MCH MCHC RDW Plt Count Neut % (Auto) Lymph % (Auto) Coleman % (Auto) Eos % (Auto) Baso % (Auto) Neut # (Auto) Lymph # (Auto) Coleman # (Auto) Eos # (Auto) Baso # (Auto) ABG Sample Site Left radial ABG pH 7.47 H ABG pCO2 29.0 L ABG pO2 62 L ABG HCO3 21 L ABG Total CO2 20 L ABG O2 Saturation 93 L ABG Base Excess -2.0 Demetris Test Positive Sodium Potassium Chloride Carbon Dioxide BUN Creatinine Estimated GFR BUN/Creatinine Ratio Glucose Lactate Calcium Magnesium Total Bilirubin AST ALT Alkaline Phosphatase Total Protein Albumin Globulin Albumin/Globulin Ratio Lipase Urine Color Urine Appearance Urine pH Ur Specific [place] Urine Protein Urine Glucose (UA) Urine Ketones Urine Occult Blood Urine Nitrate Urine Bilirubin Ur Bilirubin Confirm Urine Urobilinogen Ur Leukocyte Esterase Urine RBC Urine WBC Ur Squamous Epith Cells Amorphous Sediment Urine Bacteria Ur Culture Indicated? 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) Essential hypertension (10/09/16) Surgical History Hx of appendectomy (1977) Hx of hernia repair (1999) History of nephrectomy (1977) History of unilateral nephrectomy (10/09/16) Family History Father Congestive heart failure Diabetes mellitus COPD (chronic obstructive pulmonary disease) Mother Hypertension Diabetes mellitus Cancer Social History marital status: household members: spouse and family occupational status: previously employed leisure activities: exercise Smoking Status: Current every day smoker Tobacco: How many years used: 50 alcohol intake: current substance use type: marijuana caffeine: Yes Type(s) of exercise: walking Discharge Assessment & Plan Assessment and Plan Assessment: 64yo male with known alcoholism, COPD, HTN, BPH who presented with shortness of breath and tightness in his chest. Found to have pancreatitis, rapid progression into alcohol withdrawal. Plan of Treatment: 1) Alcohol withdrawal: On Precedex 0.5mg/kg/hr, reduced dose compared to yeseterday. Alert but not oriented and continues to have significant agitation. CT head from yesterday unremarkable. - Continue Precedex, titrate down as tolerated - S/p IV phenobarbital x48 hours for seizure ppx () - Ativan PRN - CIWA protocol - Banana bag daily - Monitor closely for ability to protect airway, may need intubated 2) Pancreatitis: Lipase trending down appropriately and has normalized. Pt without any evidence of pain on exam. Abdomen is newly distended with decreased bowel sounds per nursing who had him yesterday. Interval CT shows new hypoenhancement involving head and uncinate process of the pancreas suggesting development of necrotizing pancreatitis, severe ileus w/possible SBO in terminal ileum. - Metronidazole q8h (09/22- ) - Monitor lipase - NPO 3) Coffee ground emesis: Concerning for upper GI bleed. H/H fell gradually but stabilized this AM, more likely dilutional. No physical stigmata of cirrhosis aside from newly distended abdomen. Likely gastritis/esophagitis per employee communications intern surgeon. Did have some esophageal thickening and hepatic steatosis on initial CT, now with increased intraperitoneal inflammation and ascites on updated imaging. - Trend H/H - Monitor for output closely - Discussed with Dr Hansen, surgery. Recommends outpatient EGD assuming stability. If need for inpatient scope would need to be transferred to location with GI where esophageal banding could be completed if needed. - IV Protonix 40mg BID 4) Hypoxia: Resolved. New onset 2 nights ago night after concern for aspiration. CXR yesterday with bibasilar opacities, questionable pneumonia. - Cefepime + Azithromycin (09/21- ) possible pneumonia - Aspiration precautions 5) Hypotension/Tachycardia: BP soft yesterday and today, has not required IV metoprolol overnight or this morning. Downtrending overall with increased tachycardia with leukocytosis concerning for possible sepsis process. - Improved s/p 1L LR bolus - Hold IV metoprolol - Blood/urine cultures pending 6) HyperCa/HypoMg: Normalized - Correct PRN Discharge Plan Discharge Plan Patient Disposition: [facility] Other facility: [facility] Under care of provider: Dr. Gibson Gonzalez Diet/Activity/Treatments Diet: Nothing by Mouth Discharge Data Primary Care Provider: Miguel Ángel Bruce PROFWOLF Charge Codes Discharge inpatient/observation: [id number] ([id number], 75 minutes spent with patient and on the chart (including review of chart, obtaining history, exam, reviewing outside data, placing orders, documenting exam and treatment plan, coordinating care, counseling patient and family) on 09/22/2024.)
[2024-09-22] MEDS: HYDROMORPHONE 0.5 MG INJ IV (18:25)
--- NOTE | 2024-09-22 20:11 | PC.NURSE ---
Addendum entered by Desi Wheeler R.N. 09/22/24 22:57: 2030-pt vomitting more green thick emesis, not cooperative with suctioning of mouth, prn ativan given, family at bedside, copy taken of POA paperwork and placed on the chart, stat labs and ABG drawn 2044-MD at bedside, pt unchanged, orders to intubate, ER MD notified 2129-induction meds given, propofol and chapin see eMAR 2134-pt intubated 7.5 ETT/23 at teeth, equal breath sounds, suctioned for green secretions inline, hypotensive 80/50s, levophed started at 0.1mcg/kg/min, BPs improved 2144-CXR done and Dr. Bruce viewed it, EMS for transfer at bedside, report given, pt in stable condition intubated and sedated transfered to at 2229, report called to [id number] RN after pt left our faciltiy, belongings sent with family Original Note: 1929 assumed care following report, pt moaning in bed, oriented to self, O2 sats 95% 2L simple mask 1944-pt vomiting green/black in mouth, attempting to swallow, suctioned for small amts of emesis, zofran given, O2 sats down to 66%, sat did not improve with increased oxygen, non rebreather applied, RT called, 1999-RT communicating with MD, pt placed and HHF 50L 100%, sats slowly improved to 94%, HR 140s, RR 30s, BP 160/79 2014-RR 40s, pt mottled up to mid thighs
[2024-09-22 20:36] LABS: Base Excess ABG -5.2 mmol/L (-2-3); Blood Gas Collection Site Right Radial; Delivery System High Flow Nas Cannul; HCO3 ABG 20 mmol/L (23-27); Oxygen Saturation ABG 95 % (95-100); PCO2 ABG 36.2 mmHg (35-45); PO2 ABG 81 mmHg (80-100); TCO2 ABG 19 mmol/L (23-27); pH ABG 7.35 (7.35-7.45)
[2024-09-22 20:36] LABS: Add Manual Diff / Slide Review NO; Basophils Absolute Auto 0 /uL (0-100); Basophils Percent Auto 0.3 % (0-2); Eosinophils Absolute Auto 100 /uL (0-450); Eosinophils Percent Auto 0.6 % (2-4); Hematocrit 30.8 % (41-53); Hemoglobin 10.2 g/dL (13.5-17.5); Lymphocytes Absolute Auto 1300 /uL (1100-4500); Lymphocytes Percent Auto 9.2 % (25-40); Mean Corpuscular HGB Conc 33.2 % (30-36); Mean Corpuscular Hemoglobin 35.3 PG (26-34); Mean Corpuscular Volume 106.5 fL (80-100); Monocytes Absolute Auto 1400 /uL (0-900); Monocytes Percent Auto 10.1 % (3-14); Neutrophils Absolute Auto 10900 /uL (1500-7000); Neutrophils Percent Auto 79.8 % (50-75); Platelet Count 171 X10^3/uL (150-400); Red Blood Cell Count 2.89 X10^6/uL (4.5-5.9); Red Cell Distribution Width 13.9 % (11.6-14.8); White Blood Cell Count 13.6 X10^3/uL (4.5-11.0)
[2024-09-22 20:43] LABS: Alanine Aminotransferase 48 IU/L (<50); Albumin 2.5 g/dL (3.5-5.0); Albumin Globulin Ratio 0.8 (1.0-2.8); Alkaline Phosphatase 75 U/L (38-126); Aspartate Aminotransferase 83 IU/L (17-59); BUN Creatinine Ratio 17.7 (6-22); Bilirubin Total 0.5 mg/dL (0.2-1.3); Blood Urea Nitrogen 17 mg/dL (9-20); Calcium 7.3 mg/dL (8.4-10.2); Carbon Dioxide 19 mmol/L (22-32); Chloride 119 mmol/L (98-107); Estimated Glomerular Filt Rate > 60 mL/min (>60); Glucose 156 mg/dL (80-110); HEMOLYSIS < 15 (0-50); Magnesium 2.2 mg/dL (1.6-2.3); Potassium 3.4 mmol/L (3.4-5.1); Sodium 146 mmol/L (137-145); Total Protein 5.5 g/dL (6.3-8.2)
[2024-09-22 20:59] LABS: Procalcitonin 1.12 ng/mL (<0.5)
[2024-09-22] MEDS: propofoL 200 MG/20 ML VIAL 50 MG IV (21:31)
[2024-09-22] MEDS: ROCURONIUM 50 MG/5 ML INJ 78 MG IV (21:32)
[2024-09-22] MEDS: NOREPINEPHRINE BITARTRATE/D5W 4 MG/250 ML PLAST..BAG 24.488 MG IV (21:35)
--- NOTE | 2024-09-22 21:41 | DI.RAD.S_ITS ---
PROCEDURE: XR CHEST 1V INDICATIONS: intubated TECHNIQUE: One view of the chest was acquired. COMPARISON: [facility], CR, XR CHEST 1V, 09/21/2024, 8:22. FINDINGS: Surgical changes and devices: Endotracheal tube tip projects approximately 1.3 cm above the daryl. Lungs and pleura: Lung volumes are diminished. Streaky bibasilar opacities more pronounced on the right. Suspected small bilateral pleural effusions. No pneumothorax. Mediastinum: Mediastinal contours appear normal. Heart size is normal. Bones and chest wall: No suspicious bony lesions. Overlying soft tissues appear unremarkable. IMPRESSION: Endotracheal tube tip projects approximately 1.3 cm above the daryl. Consider repositioning. Low lung volumes with streaky bibasilar opacities likely representing atelectasis versus aspiration versus early pneumonia. Small bilateral pleural effusions. Follow-up imaging recommended. Dictated by: Beau Wolfe M.D. on 09/22/2024 at 22:34 Approved by: Beau Wolfe M.D. on 09/22/2024 at 22:36
--- NOTE | 2024-09-23 04:24 | ED_ITS ---
HPI - Chest Pain General Chief Complaint: Chest Pain Stated Complaint: vomiting, sob Time Seen by Provider: 09/18/24 18:34 Source: patient Mode of arrival: Ambulatory Limitations: no limitations Related Data Home Medications Medication Instructions Recorded Confirmed ascorbic acid (vitamin C) 250 mg 250 mg PO DAILY 04/18/23 09/18/24 tablet magnesium 250 mg tablet 250 mg PO DAILY 05/04/24 09/18/24 atorvastatin 40 mg tablet 40 mg PO BEDTIME 09/18/24 09/18/24 nortriptyline 25 mg capsule 25 mg PO BEDTIME 09/18/24 09/18/24 Previous Rx's Medication Instructions Recorded famotidine 20 mg tablet 20 mg PO BEDTIME #90 tabs 04/01/24 ipratropium 0.5 mg-albuterol 3 mg 3 ml inhalation Q6-8H PRN 05/11/24 (2.5 mg base)/3 mL nebulization shortness of breath or wheezing soln #180 mL lisinopril 20 mg tablet 20 mg PO DAILY #30 tabs 06/12/24 tamsulosin 0.4 mg capsule 0.4 mg PO DAILY #90 caps 08/12/24 tiotropium 2.5 mcg-olodaterol 2.5 2 puff inhalation QPM #4 grams 09/16/24 mcg/actuation mist for inhalation Allergies Allergy/AdvReac Type Severity Reaction Status Date / Time fluconazole Allergy Severe SWEATING, Verified 08/12/24 09:31 SOB, NAUSEA diclofenac [DICLOFENAC] Allergy Intermediate RASH ON Verified 08/12/24 09:31 FACE; LIGHTHEADEDNESS Patient History Medical History Alcoholism in remission Acute upper GI bleed Mixed hyperlipidemia History of kidney disease as a child (10/09/16) 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) Essential hypertension (10/09/16) Surgical History Hx of appendectomy (1977) Hx of hernia repair (1999) History of nephrectomy (1977) History of unilateral nephrectomy (10/09/16) Family History Father Congestive heart failure Diabetes mellitus COPD (chronic obstructive pulmonary disease) Mother Hypertension Diabetes mellitus Cancer Social History marital status: household members: spouse and family occupational status: previously employed leisure activities: exercise Smoking Status: Current every day smoker Tobacco: How many years used: 50 alcohol intake: current substance use type: marijuana caffeine: Yes Type(s) of exercise: walking Smoking Status: Current every day smoker tobacco type: cigarettes alcohol intake frequency: 3 or more drinks per day Alcohol type: beer and hard liquor Exam Initial Vital Signs Initial Vital Signs: Vital Signs Temperature 97.6 F 09/18/24 18:16 Pulse Rate 135 H 09/18/24 18:16 Respiratory Rate 22 09/18/24 18:16 Blood Pressure 183/98 H 09/18/24 18:16 Pulse Oximetry 100 09/18/24 18:16 Oxygen Delivery Method Room Air 09/18/24 18:16 Course Orders Ordered: Discontinued Medications Acetaminophen (Acetaminophen 325 Mg Tablet) 650 mg PO Q6H PRN PRN Reason: Fever/Mild Pain (1-3) Last Admin: 09/19/24 02:50 Dose: 650 mg Documented By: AT Acetaminophen (Acetaminophen 325 Mg Tablet) 650 mg PO Q6H [facility] Last Admin: 09/22/24 23:12 Dose: Not Given Documented By: Admin: 09/22/24 16:25 Dose: Not Given Documented By: Admin: 09/22/24 11:29 Dose: Not Given Documented By: Admin: 09/22/24 04:44 Dose: Not Given Documented By: Admin: 09/21/24 21:54 Dose: Not Given Documented By: Admin: 09/21/24 16:38 Dose: Not Given Documented By: Admin: 09/21/24 11:35 Dose: Not Given Documented By: Admin: 09/21/24 04:05 Dose: Not Given Documented By: Admin: 09/20/24 21:53 Dose: Not Given Documented By: Admin: 09/20/24 17:54 Dose: Not Given Documented By: Admin: 09/20/24 12:27 Dose: Not Given Documented By: Admin: 09/20/24 04:11 Dose: Not Given Documented By: Admin: 09/19/24 22:12 Dose: Not Given Documented By: Admin: 09/19/24 17:30 Dose: Not Given Documented By: Admin: 09/19/24 10:43 Dose: Not Given Documented By: SHAYY Al Hydrox/Mg Hydrox/Simethicone (Mag Hydrox/Alum/Simeth 30 Ml Udc) 30 ml PO Q6HR PRN PRN Reason: Dyspepsia Albuterol/Ipratropium (Albuterol/Ipratropium 3 Ml Ampul) 3 ml INH Q6H PRN PRN Reason: shortness of breath or wheezin Albuterol/Ipratropium (Albuterol/Ipratropium 3 Ml Ampul) 3 ml INH [id number] [facility] Last Admin: 09/19/24 08:43 Dose: 3 ml Documented By: Admin: 09/18/24 23:35 Dose: Not Given Documented By: ANANTH Albuterol/Ipratropium (Albuterol/Ipratropium 3 Ml Ampul) 3 ml INH RTQ4HR PRN PRN Reason: Shortness Of Breath Aspirin (Aspirin 81 Mg Chew Tab) 324 mg PO NOW ONE Stop: 09/18/24 18:23 Last Admin: 09/18/24 18:45 Dose: Not Given Documented By: HELENA Aspirin (Aspirin 81 Mg Chew Tab) 81 mg PO DAILY [facility] Last Admin: 09/19/24 08:29 Dose: 81 mg Documented By: IZZY Atorvastatin Calcium (Atorvastatin 20 Mg Tablet) 40 mg PO DAILY [facility] Last Admin: 09/19/24 08:30 Dose: 40 mg Documented By: IZZY Enoxaparin Sodium (Enoxaparin 40 Mg/0.4 Ml Syringe) 40 mg SUBCUT DAILY [facility] Last Admin: 09/21/24 09:10 Dose: Not Given Documented By: Admin: 09/20/24 12:24 Dose: 40 mg Documented By: BRETT Famotidine (Famotidine 20 Mg Tablet) 20 mg PO BEDTIME [facility] Folic Acid (Folic Acid 1 Mg Tablet) 1 mg PO DAILY [facility] Last Admin: 09/19/24 08:29 Dose: 1 mg Documented By: IZZY Hydromorphone HCl (Hydromorphone 0.5 Mg Inj) 0.5 mg IV Q4H PRN PRN Reason: Pain, Severe (7-10) Last Admin: 09/22/24 18:25 Dose: 0.5 mg Documented By: DAVON Sodium Chloride (Normal Saline 0.9%) 1,000 mls @ 1,000 mls/hr IV BOLUS ONE Stop: 09/18/24 19:42 Last Infusion: 09/18/24 18:55 Dose: Infused Documented By: Admin: 09/18/24 18:55 Dose: 1,000 mls/hr Documented By: TC Magnesium Sulfate (Magnesium Sulfate) 4 gm in 100 mls @ 25 mls/hr IV NOW ONE Stop: 09/19/24 00:05 Last Infusion: 09/18/24 21:11 Dose: Infused Documented By: HUMERA Co-signed By: TC Admin: 09/18/24 20:30 Dose: 25 mls/hr Documented By: TC Co-signed By: KH Sodium Chloride (Normal Saline 0.9%) 1,000 mls @ 1,000 mls/hr IV BOLUS ONE Stop: 09/18/24 21:05 Last Infusion: 09/18/24 21:14 Dose: Infused Documented By: Admin: 09/18/24 20:30 Dose: 1,000 mls/hr Documented By: TC Lactated Ringer's (Lactated Ringers) 1,000 mls @ 100 mls/hr IV CONT [facility] Last Infusion: 09/19/24 10:45 Dose: Infused Documented By: Admin: 09/18/24 22:55 Dose: 100 mls/hr Documented By: YA dexmedeTOMIDine in 0.9 % NaCL (Precedex) 400 mcg in 100 mls @ 3.25 mls/hr IV TITRATE [facility] Last Admin: 09/22/24 20:58 Dose: 0.5 mcg/kg/hr, 8.125 mls/hr Documented By: Infusion: 09/22/24 20:58 Dose: Infused Documented By: Admin: 09/22/24 12:26 Dose: 0.5 mcg/kg/hr, 8.125 mls/hr Documented By: Infusion: 09/22/24 12:26 Dose: Infused Documented By: Infusion: 09/22/24 09:36 Dose: 0.5 mcg/kg/hr, 8.125 mls/hr Documented By: Infusion: 09/22/24 06:18 Dose: 0.7 mcg/kg/hr, 11.375 mls/hr Documented By: Admin: 09/22/24 04:01 Dose: 0.8 mcg/kg/hr, 13 mls/hr Documented By: Infusion: 09/22/24 04:01 Dose: Infused Documented By: Infusion: 09/22/24 01:15 Dose: 0.8 mcg/kg/hr, 13 mls/hr Documented By: Infusion: 09/21/24 21:15 Dose: 0.7 mcg/kg/hr, 11.375 mls/hr Documented By: Admin: 09/21/24 19:44 Dose: 0.6 mcg/kg/hr, 9.75 mls/hr Documented By: Infusion: 09/21/24 19:44 Dose: Infused Documented By: Infusion: 09/21/24 16:30 Dose: 0.6 mcg/kg/hr, 9.75 mls/hr Documented By: Infusion: 09/21/24 13:52 Dose: 0.7 mcg/kg/hr, 11.375 mls/hr Documented By: Infusion: 09/21/24 12:45 Dose: 0.9 mcg/kg/hr, 14.625 mls/hr Documented By: Admin: 09/21/24 11:53 Dose: 1.1 mcg/kg/hr, 17.875 mls/hr Documented By: Infusion: 09/21/24 11:53 Dose: Infused Documented By: Infusion: 09/21/24 09:27 Dose: 1.3 mcg/kg/hr, 21.125 mls/hr Documented By: Infusion: 09/21/24 09:22 Dose: 1 mcg/kg/hr, 16.25 mls/hr Documented By: Admin: 09/21/24 07:31 Dose: 1.5 mcg/kg/hr, 24.375 mls/hr Documented By: Infusion: 09/21/24 07:31 Dose: Infused Documented By: Admin: 09/21/24 03:53 Dose: 1.5 mcg/kg/hr, 24.375 mls/hr Documented By: Infusion: 09/21/24 03:39 Dose: Infused Documented By: Admin: 09/20/24 23:32 Dose: 1.5 mcg/kg/hr, 24.375 mls/hr Documented By: Infusion: 09/20/24 23:32 Dose: Infused Documented By: Admin: 09/20/24 20:01 Dose: 1.5 mcg/kg/hr, 24.375 mls/hr Documented By: Infusion: 09/20/24 20:01 Dose: Infused Documented By: Admin: 09/20/24 16:58 Dose: 1.5 mcg/kg/hr, 24.375 mls/hr Documented By: Infusion: 09/20/24 16:58 Dose: Infused Documented By: Admin: 09/20/24 13:36 Dose: 1.4 mcg/kg/hr, 22.75 mls/hr Documented By: Infusion: 09/20/24 13:36 Dose: Infused Documented By: Infusion: 09/20/24 12:28 Dose: 1.4 mcg/kg/hr, 22.75 mls/hr Documented By: Admin: 09/20/24 09:59 Dose: 1.5 mcg/kg/hr, 24.375 mls/hr Documented By: Infusion: 09/20/24 09:59 Dose: Infused Documented By: Admin: 09/20/24 06:40 Dose: 1.5 mcg/kg/hr, 24.375 mls/hr Documented By: Infusion: 09/20/24 06:07 Dose: Infused Documented By: Admin: 09/20/24 02:00 Dose: 1.5 mcg/kg/hr, 24.375 mls/hr Documented By: Infusion: 09/20/24 01:56 Dose: Infused Documented By: Infusion: 09/20/24 00:47 Dose: 1.4 mcg/kg/hr, 22.75 mls/hr Documented By: Admin: 09/19/24 21:19 Dose: 1.2 mcg/kg/hr, 19.5 mls/hr Documented By: Infusion: 09/19/24 21:19 Dose: Infused Documented By: Admin: 09/19/24 16:08 Dose: 1 mcg/kg/hr, 16.25 mls/hr Documented By: Infusion: 09/19/24 16:08 Dose: Infused Documented By: Infusion: 09/19/24 12:36 Dose: 1 mcg/kg/hr, 16.25 mls/hr Documented By: Infusion: 09/19/24 12:06 Dose: 0.8 mcg/kg/hr, 13 mls/hr Documented By: Infusion: 09/19/24 11:36 Dose: 0.6 mcg/kg/hr, 9.75 mls/hr Documented By: Infusion: 09/19/24 11:06 Dose: 0.4 mcg/kg/hr, 6.5 mls/hr Documented By: Infusion: 09/19/24 10:32 Dose: 0.2 mcg/kg/hr, 3.25 mls/hr Documented By: Infusion: 09/19/24 10:22 Dose: 0 mcg/kg/hr, 0 mls/hr Documented By: Admin: 09/19/24 10:21 Dose: 0.2 mcg/kg/hr, 3.25 mls/hr Documented By: SHAYY Dextrose/Sodium Chloride (Dextrose 5%-0.9% Ns) 1,000 mls @ 100 mls/hr IV CONT [facility] Last Infusion: 09/22/24 13:01 Dose: Infused Documented By: Admin: 09/22/24 01:12 Dose: 100 mls/hr Documented By: Infusion: 09/22/24 01:12 Dose: Infused Documented By: Admin: 09/21/24 15:18 Dose: 100 mls/hr Documented By: Infusion: 09/21/24 12:48 Dose: Infused Documented By: Admin: 09/21/24 02:48 Dose: 100 mls/hr Documented By: Infusion: 09/21/24 02:48 Dose: Infused Documented By: Admin: 09/20/24 16:57 Dose: 100 mls/hr Documented By: Infusion: 09/20/24 16:57 Dose: Infused Documented By: Admin: 09/20/24 07:28 Dose: 100 mls/hr Documented By: Infusion: 09/20/24 07:22 Dose: Infused Documented By: Admin: 09/19/24 21:22 Dose: 100 mls/hr Documented By: Infusion: 09/19/24 21:22 Dose: Infused Documented By: Admin: 09/19/24 11:34 Dose: 100 mls/hr Documented By: SHAYY Acetaminophen (Ofirmev) 1,000 mg in 100 mls @ 400 mls/hr IV Q6H PRN PRN Reason: Fever/Mild Pain (1-3) Magnesium Sulfate (Magnesium Sulfate) 2 gm in 50 mls @ 25 mls/hr IV NOW ONE Stop: 09/20/24 10:59 Last Admin: 09/20/24 09:14 Dose: 25 mls/hr Documented By: BRETT Co-signed By: SHAYY Thiamine HCl 100 mg/ Sodium (Chloride) 101 mls @ 404 mls/hr IV DAILY [facility] Stop: 09/22/24 09:14 Last Infusion: 09/22/24 13:01 Dose: Infused Documented By: Admin: 09/22/24 09:22 Dose: 404 mls/hr Documented By: Infusion: 09/21/24 10:00 Dose: Infused Documented By: Admin: 09/21/24 09:13 Dose: 404 mls/hr Documented By: Infusion: 09/20/24 15:55 Dose: Infused Documented By: Admin: 09/20/24 09:56 Dose: 404 mls/hr Documented By: BRETT POTASSIUM CHLORIDE IN WATER (Potassium Cl 10 Meq/100 Ml Lisa) 10 meq in 100 mls @ 100 mls/hr IV Q1H [facility] Stop: 09/21/24 11:29 Last Admin: 09/21/24 12:26 Dose: 100 mls/hr Documented By: Infusion: 09/21/24 12:11 Dose: Infused Documented By: Admin: 09/21/24 11:11 Dose: 100 mls/hr Documented By: DAVON Magnesium Sulfate (Magnesium Sulfate) 2 gm in 50 mls @ 25 mls/hr IV NOW ONE Stop: 09/21/24 11:26 Last Infusion: 09/21/24 14:16 Dose: Infused Documented By: DAVON Co-signed By: NED Admin: 09/21/24 11:11 Dose: 25 mls/hr Documented By: DAVON Co-signed By: BEULAH Cefepime HCl 2 gm/ Sodium (Chloride) 100 mls @ 200 mls/hr IV Q8H [facility] Stop: 09/26/24 10:59 Last Infusion: 09/22/24 19:12 Dose: Infused Documented By: Admin: 09/22/24 18:01 Dose: 200 mls/hr Documented By: Infusion: 09/22/24 13:00 Dose: Infused Documented By: Admin: 09/22/24 11:45 Dose: 200 mls/hr Documented By: Infusion: 09/22/24 03:31 Dose: Infused Documented By: Admin: 09/22/24 03:01 Dose: 200 mls/hr Documented By: Infusion: 09/21/24 19:05 Dose: Infused Documented By: Admin: 09/21/24 18:05 Dose: 200 mls/hr Documented By: Infusion: 09/21/24 12:22 Dose: Infused Documented By: Admin: 09/21/24 11:12 Dose: 200 mls/hr Documented By: DAVON Azithromycin 500 mg/ Dextrose 250 mls @ 250 mls/hr IV Q24H [facility] Stop: 09/24/24 11:59 Last Infusion: 09/22/24 14:00 Dose: Infused Documented By: Admin: 09/22/24 12:29 Dose: 250 mls/hr Documented By: Infusion: 09/21/24 14:16 Dose: Infused Documented By: Admin: 09/21/24 12:27 Dose: 250 mls/hr Documented By: DAVON Magnesium Sulfate (Magnesium Sulfate) 2 gm in 50 mls @ 25 mls/hr IV NOW ONE Stop: 09/22/24 09:14 Last Infusion: 09/22/24 13:01 Dose: Infused Documented By: DAVON Co-signed By: NED Admin: 09/22/24 08:44 Dose: 25 mls/hr Documented By: DAVON Co-signed By: LDV POTASSIUM CHLORIDE IN WATER (Potassium Cl 10 Meq/100 Ml Lisa) 10 meq in 100 mls @ 100 mls/hr IV Q1H [facility] Stop: 09/22/24 11:14 Last Admin: 09/22/24 13:01 Dose: 100 mls/hr Documented By: Infusion: 09/22/24 12:52 Dose: Infused Documented By: Admin: 09/22/24 11:52 Dose: 100 mls/hr Documented By: Infusion: 09/22/24 11:41 Dose: Infused Documented By: Admin: 09/22/24 10:41 Dose: 100 mls/hr Documented By: Infusion: 09/22/24 09:43 Dose: Infused Documented By: Admin: 09/22/24 08:43 Dose: 100 mls/hr Documented By: DAVON Dextrose/Lactated Ringer's (Dextrose 5%-Lactated Ringers) 1,000 mls @ 100 mls/hr IV CONT [facility] Last Admin: 09/22/24 08:53 Dose: 100 mls/hr Documented By: DAVON Lactated Ringer's (Lactated Ringers) 1,000 mls @ 1,000 mls/hr IV BOLUS ONE Stop: 09/22/24 15:12 Last Admin: 09/22/24 14:15 Dose: 1,000 mls/hr Documented By: DAVON Metronidazole (Flagyl) 500 mg in 100 mls @ 100 mls/hr IV NOW ONE Stop: 09/22/24 16:58 Last Admin: 09/22/24 16:11 Dose: 100 mls/hr Documented By: DAVON Metronidazole (Flagyl) 500 mg in 100 mls @ 100 mls/hr IV Q8H [facility] NOREPINEPHRINE BITARTRATE/D5W (Levophed) 4 mg in 250 mls @ 24.488 mls/hr IV TITRATE [facility]; Protocol Last Admin: 09/22/24 21:35 Dose: 0.1 mcg/kg/min, 24.488 mls/hr Documented By: BRITTA Propofol (Diprivan) 1,000 mg in 100 mls @ 1.959 mls/hr IV TITRATE [facility]; Protocol Last Admin: 09/22/24 23:10 Dose: Not Given Documented By: BRITTA Lisinopril (Lisinopril 20 Mg Tablet) 20 mg PO DAILY [facility] Last Admin: 09/19/24 08:29 Dose: 20 mg Documented By: IZZY Lisinopril (Lisinopril 20 Mg Tablet) 20 mg PO NOW ONE Stop: 09/18/24 23:45 Last Admin: 09/19/24 00:32 Dose: 20 mg Documented By: AT Lorazepam (Lorazepam 2 Mg/Ml Inj) 2 mg IV NOW ONE Stop: 09/18/24 18:44 Last Admin: 09/18/24 18:54 Dose: 2 mg Documented By: TC Lorazepam (Lorazepam 2 Mg/Ml Inj) 0 mg IV CIWAPRN PRN; Protocol PRN Reason: Alcohol Withdrawal Last Admin: 09/22/24 20:58 Dose: 2 mg Documented By: Admin: 09/22/24 17:04 Dose: 2 mg Documented By: Admin: 09/22/24 13:25 Dose: 2 mg Documented By: Admin: 09/22/24 01:50 Dose: 2 mg Documented By: Admin: 09/21/24 23:48 Dose: 2 mg Documented By: Admin: 09/21/24 20:26 Dose: 2 mg Documented By: Admin: 09/21/24 16:32 Dose: 2 mg Documented By: Admin: 09/21/24 10:20 Dose: 2 mg Documented By: Admin: 09/21/24 08:31 Dose: 2 mg Documented By: Admin: 09/21/24 05:08 Dose: 2 mg Documented By: Admin: 09/21/24 02:47 Dose: 2 mg Documented By: Admin: 09/21/24 00:10 Dose: 2 mg Documented By: Admin: 09/20/24 22:10 Dose: 2 mg Documented By: Admin: 09/20/24 20:39 Dose: 1 mg Documented By: Admin: 09/20/24 14:45 Dose: 2 mg Documented By: Admin: 09/20/24 13:40 Dose: 1 mg Documented By: Admin: 09/20/24 08:49 Dose: 1 mg Documented By: Admin: 09/20/24 05:20 Dose: 2 mg Documented By: Admin: 09/20/24 01:07 Dose: 1 mg Documented By: Admin: 09/19/24 21:36 Dose: 1 mg Documented By: Admin: 09/19/24 11:31 Dose: 2 mg Documented By: Admin: 09/19/24 08:10 Dose: 2 mg Documented By: Admin: 09/19/24 07:41 Dose: 2 mg Documented By: Admin: 09/19/24 05:33 Dose: 1 mg Documented By: Admin: 09/18/24 23:41 Dose: 2 mg Documented By: AT Magnesium Hydroxide (Magnesium Hydroxide 30 Ml Udc) 30 ml PO DAILY PRN PRN Reason: Constipation Metoprolol Tartrate (Metoprolol Tartrate 5 Mg/5 Ml Inj) 5 mg IV Q6H Replaced by [facility] Admin: 09/22/24 23:12 Dose: Not Given Documented By: Admin: 09/22/24 16:25 Dose: Not Given Documented By: Admin: 09/22/24 09:49 Dose: Not Given Documented By: Admin: 09/22/24 04:33 Dose: 5 mg Documented By: Admin: 09/21/24 21:52 Dose: 5 mg Documented By: Admin: 09/21/24 16:38 Dose: 5 mg Documented By: Admin: 09/21/24 13:05 Dose: 5 mg Documented By: Admin: 09/21/24 04:43 Dose: 5 mg Documented By: Admin: 09/20/24 21:48 Dose: 5 mg Documented By: Admin: 09/20/24 16:11 Dose: 5 mg Documented By: Admin: 09/20/24 09:59 Dose: 5 mg Documented By: Admin: 09/20/24 04:10 Dose: 5 mg Documented By: Admin: 09/19/24 23:01 Dose: 5 mg Documented By: Admin: 09/19/24 17:30 Dose: 5 mg Documented By: Admin: 09/19/24 10:12 Dose: 5 mg Documented By: SHAYY Morphine Sulfate (Morphine 2 Mg/Ml Inj) 1 mg IV Q2HR PRN PRN Reason: Pain, Moderate (4-6) Last Admin: 09/22/24 18:01 Dose: 1 mg Documented By: Admin: 09/22/24 14:32 Dose: 1 mg Documented By: Admin: 09/22/24 11:42 Dose: 1 mg Documented By: Admin: 09/22/24 04:34 Dose: 1 mg Documented By: Admin: 09/21/24 23:00 Dose: 1 mg Documented By: Admin: 09/21/24 16:45 Dose: 1 mg Documented By: Admin: 09/21/24 00:33 Dose: 1 mg Documented By: Admin: 09/20/24 22:38 Dose: 1 mg Documented By: Admin: 09/19/24 23:03 Dose: 1 mg Documented By: Admin: 09/19/24 04:32 Dose: 1 mg Documented By: AT Multivitamins (Multivitamin 1 Tablet) 1 tab PO DAILY [facility] Last Admin: 09/19/24 08:29 Dose: 1 tab Documented By: IZZY Naloxone HCl (Naloxone 0.4 Mg/Ml Vial) 0.2 mg IV Q2MIN PRN PRN Reason: Opiate Reversal Naloxone HCl (Naloxone 0.4 Mg/Ml Vial) 0.2 mg IV Q2MIN PRN PRN Reason: Opiate Reversal Nicotine (Nicotine 21 Mg Patch) 21 mg TOP DAILY [facility] Last Admin: 09/22/24 09:49 Dose: Not Given Documented By: Admin: 09/21/24 08:32 Dose: 21 mg Documented By: Admin: 09/20/24 09:00 Dose: 21 mg Documented By: Admin: 09/19/24 10:38 Dose: 21 mg Documented By: SHAYY Ondansetron HCl (Ondansetron 4 Mg/2 Ml Inj) 4 mg IV NOW ONE Stop: 09/18/24 21:32 Last Admin: 09/18/24 22:00 Dose: 4 mg Documented By: HUMERA Ondansetron HCl (Ondansetron 4 Mg/2 Ml Inj) 4 mg IV Q6HR PRN PRN Reason: Nausea And Vomiting Ondansetron HCl (Ondansetron 4 Mg/2 Ml Inj) 4 mg IV Q4HR PRN PRN Reason: Nausea And Vomiting Last Admin: 09/22/24 19:40 Dose: 4 mg Documented By: Admin: 09/22/24 04:08 Dose: 4 mg Documented By: Admin: 09/21/24 00:34 Dose: 4 mg Documented By: Admin: 09/19/24 17:47 Dose: 4 mg Documented By: Admin: 09/19/24 07:41 Dose: 4 mg Documented By: Admin: 09/19/24 02:50 Dose: 4 mg Documented By: CAMERON Pantoprazole Sodium (Pantoprazole Dr 40 Mg Tablet) 40 mg PO BID [facility] Last Admin: 09/19/24 08:29 Dose: 40 mg Documented By: IZZY Pantoprazole Sodium (Pantoprazole 40 Mg Vial) 40 mg IV DAILY [facility] Last Admin: 09/21/24 08:31 Dose: 40 mg Documented By: Admin: 09/20/24 08:49 Dose: 40 mg Documented By: Admin: 09/19/24 11:31 Dose: 40 mg Documented By: SHAYY Pantoprazole Sodium (Pantoprazole 40 Mg Vial) 40 mg IV BID [facility] Last Admin: 09/22/24 20:58 Dose: 40 mg Documented By: Admin: 09/22/24 09:22 Dose: 40 mg Documented By: Admin: 09/21/24 20:27 Dose: 40 mg Documented By: Admin: 09/21/24 09:38 Dose: Not Given Documented By: DAVON Phenobarbital (Phenobarbital 65 Mg/Ml Vial) 130 mg IV NOW ONE Stop: 09/19/24 10:01 Last Admin: 09/19/24 10:03 Dose: 130 mg Documented By: SHAYY Phenobarbital (Phenobarbital 65 Mg/Ml Vial) 65 mg IV Q6H [facility] Stop: 09/20/24 10:01 Last Admin: 09/20/24 09:57 Dose: 65 mg Documented By: Admin: 09/20/24 04:07 Dose: 65 mg Documented By: Admin: 09/19/24 21:18 Dose: 65 mg Documented By: Admin: 09/19/24 15:34 Dose: 65 mg Documented By: SHAYY Phenobarbital (Phenobarbital 65 Mg/Ml Vial) 32.5 mg IV Q6H [facility] Stop: 09/21/24 10:01 Last Admin: 09/21/24 11:12 Dose: 32.5 mg Documented By: Admin: 09/21/24 03:52 Dose: 32.5 mg Documented By: Admin: 09/20/24 21:47 Dose: 32.5 mg Documented By: Admin: 09/20/24 15:36 Dose: 32.5 mg Documented By: SHAYY Propofol (Propofol 200 Mg/20 Ml Vial) 50 mg IV NOW ONE Stop: 09/22/24 21:31 Last Admin: 09/22/24 21:31 Dose: 50 mg Documented By: BRITTA Rocuronium Benld (Rocuronium 50 Mg/5 Ml Inj) 7.8 mg IV NOW ONE Stop: 09/22/24 21:31 Last Admin: 09/22/24 23:37 Dose: Not Given Documented By: BRITTA Rocuronium Benld (Rocuronium 50 Mg/5 Ml Inj) 78 mg IV NOW ONE Stop: 09/22/24 23:33 Last Admin: 09/22/24 21:32 Dose: 78 mg Documented By: BRITTA Sodium Chloride (Sodium Chloride 0.9% Flush) 10 ml IV PRN PRN PRN Reason: Flush Sodium Chloride (Sodium Chloride 0.9% Flush) 10 ml IV BID [facility] Last Admin: 09/19/24 09:46 Dose: 10 ml Documented By: IZZY Sodium Chloride (Sodium Chloride 0.9% Flush) 10 ml IV PRN PRN PRN Reason: Flush Last Admin: 09/20/24 05:21 Dose: 10 ml Documented By: Admin: 09/20/24 01:07 Dose: 10 ml Documented By: HERNANDEZ Sodium Chloride (Sodium Chloride 0.9% Flush) 10 ml IV BID [facility] Last Admin: 09/22/24 22:39 Dose: Not Given Documented By: Admin: 09/22/24 09:22 Dose: 10 ml Documented By: Admin: 09/21/24 20:27 Dose: 10 ml Documented By: Admin: 09/21/24 08:32 Dose: 10 ml Documented By: Admin: 09/20/24 20:01 Dose: 10 ml Documented By: Admin: 09/20/24 08:50 Dose: 10 ml Documented By: BRETT Tamsulosin HCl (Tamsulosin 0.4 Mg Capsule) 0.4 mg PO DAILY [facility] Last Admin: 09/19/24 08:29 Dose: 0.4 mg Documented By: IZZY Thiamine HCl (Thiamine 100 Mg Tablet) 100 mg PO DAILY [facility] Stop: 09/22/24 09:01 Last Admin: 09/20/24 08:49 Dose: 100 mg Documented By: Admin: 09/19/24 08:29 Dose: 100 mg Documented By: IZZY MDM - Chest Pain Lab Data 09/22/24 20:25 09/22/24 20:25 Labs: Lab Results 09/18/24 Range/Units 18:40 WBC 10.8 (4.5-11.0) X10^3/uL RBC 3.95 L (4.5-5.9) X10^6/uL Hgb 14.0 (13.5-17.5) g/dL Hct 41.1 (41-53) % MCV 104.1 H (80-100) fL MCH 35.4 H (26-34) PG MCHC 34.0 (30-36) % RDW 14.0 (11.6-14.8) % Plt Count 226 (150-400) X10^3/uL Neut % (Auto) 76.3 H (50-75) % Lymph % (Auto) 12.5 L (25-40) % Tama % (Auto) 10.6 (3-14) % Eos % (Auto) 0.1 L (2-4) % Baso % (Auto) 0.5 (0-2) % Neut # (Auto) 8200 H (0505-6456) /uL Lymph # (Auto) 1400 (1250-1671) /uL Tama # (Auto) 1200 H (0-900) /uL Eos # (Auto) 0 (0-450) /uL Baso # (Auto) 100 (0-100) /uL PT 10.3 (9.4-12.5) SECONDS INR 0.9 (0.9-1.3) APTT 28 (25.1-36.5) SECONDS D-Dimer 4098 H (<500) ng/ml Sodium 140 (137-145) mmol/L Potassium 3.7 (3.4-5.1) mmol/L Chloride 97 L (98-107) mmol/L Carbon Dioxide 29 (22-32) mmol/L BUN 12 (9-20) mg/dL Creatinine 0.96 (0.66-1.25) mg/dL Estimated GFR > 60 (>60) mL/min BUN/Creatinine Ratio 12.5 (6-22) Glucose 124 H (80-110) mg/dL Calcium 14.5 H* (8.4-10.2) mg/dL Magnesium 1.1 L (1.6-2.3) mg/dL Total Bilirubin 0.8 (0.2-1.3) mg/dL AST 123 H (17-59) IU/L ALT 88 H (<50) IU/L Alkaline Phosphatase 85 (38-126) U/L Total Creatine Kinase 54 L (55-170) U/L Troponin I < 0.012 (0.01-0.034) ng/mL NT-Pro-B Natriuret Pep 70 (<125) pg/mL Total Protein 8.4 H (6.3-8.2) g/dL Albumin 4.8 (3.5-5.0) g/dL Globulin 3.6 (1.7-4.1) g/dL Albumin/Globulin Ratio 1.3 (1.0-2.8) Lipase 1782 H (23-300) U/L TSH 4.11 (0.47-4.68) uIU/mL Ethyl Alcohol 24 H ( - 10) mg/dL Discharge Plan Departure Patient Disposition: Admitted As Inpatient Clinical Impression: Hypomagnesemia, Hypercalcemia Pancreatitis Qualifiers: Chronicity: acute Pancreatitis type: alcohol induced Acute pancreatitis complication: no infection or necrosis Qualified Code(s): K85.20 - Alcohol induced acute pancreatitis without necrosis or infection Admit Date/Time: 09/18/24 22:03 Admit Provider: Maverick Delong
--- NOTE | 2024-09-23 04:27 | PM.PROC.1 ---
Procedures Date/Time Date of procedure: 09/22/24 Time of procedure: 22:00 General Procedure description: Intubation Intubation Time out performed: Yes Sedative: other (Propofol) Mg given: 50 Paralytic: rocuronium Mg given: 78 Laryngoscope: other (Hyper angulated 3 scope with video) ET tube size: 7.5 ET tube uncuffed: No Tube secured depth (cm): 23 Tube secured location: teeth Tube placement confirmation: visualized tube passing through cords and equal breath sounds bilaterally Patient tolerated procedure: other Intubation complications: difficult intubation Additional comments: I was called to the room at approximately 11:00 a.m. for this patient who was admitted to the ICU for alcohol withdrawal, had had increasing benzodiazepine status, decreased mental status, frequent emesis and now desaturations. When I came to the bedside patient tachycardic to the 140s blood pressure in the 140s. Not responding to stimuli other than grunting and mild eye opening. Patient actively vomiting with suctioned at the bedside multiple suctions done while preparing airway for intervention. Patient on 50 L high-flow nasal cannula and non-rebreather mask with sats in the 90s upon my arrival to bedside. Intubation performed with video hyper angulated blade, propofol and rocuronium, patient actively vomiting before and during procedure requiring significant suctioning. Visualized emesis within the airway upon placement of ET tube. 7.5 tube passed 23 at the teeth, clear lung sounds bilaterally after passing tube saturation is in the 90s. Patient blood pressure drops shortly after intubation, increased fluids briefly and started patient on norepinephrine in order to improve blood pressure/allow for propofol sedation and Versed use as needed. I returned to the emergency department and left the patient in care of ICU team after procedure was completed and blood pressure began to improve after initiation of pressors.
== END 2024-09-22 22:40 | disposition short-term general hospital (02) | DRG 775 ==
LOC: ED 21:33 → AC 22:05 → ICU 09-19 09:57
PROVIDERS: Emergency Medicine; Family Medicine; Admitting Provider Family Medicine; Emergency Provider Emergency Medicine; PCP Family Medicine; Referring Provider Emergency Medicine; Visit Provider Family Medicine
DX: F10.231 Alcohol dependence with withdrawal delirium (principal); J69.0 Pneumonitis due to inhalation of food and vomit; A41.9 Sepsis, unspecified organism; E83.52 Hypercalcemia; I10 Essential (primary) hypertension; E83.42 Hypomagnesemia; R00.0 Tachycardia, unspecified; I95.9 Hypotension, unspecified; J18.9 Pneumonia, unspecified organism; R09.02 Hypoxemia; K85.21 Alcohol induced acute pancreatitis with uninfected necrosis; K56.609 Unspecified intestinal obstruction, unspecified as to partial versus complete obstruction; E78.2 Mixed hyperlipidemia; K29.71 Gastritis, unspecified, with bleeding; K20.91 Esophagitis, unspecified with bleeding; F17.210 Nicotine dependence, cigarettes, uncomplicated; R18.8 Other ascites; Y90.1 Blood alcohol level of 20-39 mg/100 ml; Z87.19 Personal history of other diseases of the digestive system
CPT/HCPCS: 36415; 36600; 70450; 71045; 71260; 71275; 74019; 74177; 76705; 80053; 80076; 80320; 81001; 82150; 82550; 82805; 82962; 83605; 83690; 83735; 83880; 84145; 84443; 84484; 85025; 85379; 85610; 85730; 86850; 86900; 86901; 87040; 87086; 87797; 93005; 93306; 94640; 94660; 94799; 96365; 96375; 99233; 99239; 99284; 99418; J0692; J1171; J1650; J2060; J2270; J2405; J2470; J2560; J2704; J3475; J7121; Q9967

== ENCOUNTER → 2024-10-05 14:17 | Outpatient (CLI) | payer OTHER, SELFPAY ==
[2024-09-18 22:58] VITALS: BMI 22.4
[2024-09-22 21:51] VITALS: PULSE 140; RESP 16; O2SAT 99
[2024-10-05 16:26] LABS: Basophils Absolute Auto 100 /uL (0-100); Basophils Percent Auto 1.2 % (0-2); Eosinophils Absolute Auto 200 /uL (0-450); Eosinophils Percent Auto 2.1 % (2-4); Hematocrit 27.9 % (41-53); Hemoglobin 9.4 g/dL (13.5-17.5); Hemoglobin A1C% w Est Avg Glu 4.9 % (4.0-6.0); Lymphocytes Absolute Auto 1600 /uL (1100-4500); Mean Corpuscular HGB Conc 33.8 % (30-36); Mean Corpuscular Hemoglobin 34.6 PG (26-34); Mean Corpuscular Volume 102.3 fL (80-100); Monocytes Absolute Auto 1000 /uL (0-900); Monocytes Percent Auto 10.5 % (3-14); Neutrophils Absolute Auto 6500 /uL (1500-7000); Neutrophils Percent Auto 69.2 % (50-75); Red Blood Cell Count 2.72 X10^6/uL (4.5-5.9); Red Cell Distribution Width 14.6 % (11.6-14.8); White Blood Cell Count 9.4 X10^3/uL (4.5-11.0)
[2024-10-05 16:29] LABS: Platelet Count 971 X10^3/uL (150-400)
[2024-10-05 16:31] LABS: Add Manual Diff / Slide Review SLIDE REVIEW
[2024-10-05 16:37] LABS: Alanine Aminotransferase 25 IU/L (<50); Albumin 3.1 g/dL (3.5-5.0); Albumin Globulin Ratio 0.8 (1.0-2.8); Alkaline Phosphatase 94 U/L (38-126); Aspartate Aminotransferase 49 IU/L (17-59); Bilirubin Total 0.4 mg/dL (0.2-1.3); Calcium 9.1 mg/dL (8.4-10.2); Carbon Dioxide 23 mmol/L (22-32); Chloride 103 mmol/L (98-107); Cholesterol 70 mg/dL (140-199); Estimated Glomerular Filt Rate > 60 mL/min (>60); Globulin 3.7 g/dL (1.7-4.1); Glucose 98 mg/dL (80-110); HDL Cholesterol 24 mg/dL (40-60); HEMOLYSIS < 15 (0-50); LDL Cholesterol Calculated 21 mg/dL (<100); Lipase 545 U/L (23-300); Potassium 4.4 mmol/L (3.4-5.1); Sodium 138 mmol/L (137-145); Total Protein 6.8 g/dL (6.3-8.2); Triglycerides 124 mg/dL (35-150)
[2024-10-05 16:38] LABS: BUN Creatinine Ratio 2.5 (6-22); Blood Urea Nitrogen 2 mg/dL (9-20)
[2024-10-05 17:06] LABS: Macrocytosis 1+; Platelet Estimate Increased on smear
[2024-10-05 17:07] LABS: Prostate Specific Antigen Scrn 6.94 ng/mL (0.1-4.0)
== END ==
PROVIDERS: PCP Family Medicine; Referring Provider Family Medicine; Visit Provider Family Medicine
DX: E78.2 Mixed hyperlipidemia (principal); R74.8 Abnormal levels of other serum enzymes; K85.90 Acute pancreatitis without necrosis or infection, unspecified; Z12.5 Encounter for screening for malignant neoplasm of prostate; R97.20 Elevated prostate specific antigen [PSA]; Z13.1 Encounter for screening for diabetes mellitus
CPT/HCPCS: 36415; 80053; 80061; 83036; 83690; 85025; G0103

== ENCOUNTER → 2024-10-07 13:16 | Outpatient (CLI) | payer OTHER, SELFPAY ==
[2024-09-18 22:58] VITALS: BMI 22.4
[2024-09-22 21:51] VITALS: PULSE 140; RESP 16; O2SAT 99
[2024-10-07 13:48] LABS: HEMOLYSIS 21 (0-50); Iron 60 ug/dL (49-181)
[2024-10-07 13:50] LABS: Hematocrit 26.6 % (41-53); Hemoglobin 9.1 g/dL (13.5-17.5); Mean Corpuscular HGB Conc 34.2 % (30-36); Mean Corpuscular Hemoglobin 34.7 PG (26-34); Mean Corpuscular Volume 101.3 fL (80-100); Red Blood Cell Count 2.63 X10^6/uL (4.5-5.9); White Blood Cell Count 8.5 X10^3/uL (4.5-11.0)
[2024-10-07 13:59] LABS: Percent Iron Saturation 34 % (20-50); Total Iron Binding Capacity 175 ug/dL (261-462); Transferrin 116 mg/dL (206-381)
[2024-10-07 14:24] LABS: Ferritin 360 ng/mL (18-464)
[2024-10-07 14:26] LABS: Add Manual Diff / Slide Review YES
[2024-10-07 14:29] LABS: Platelet Count 996 X10^3/uL (150-400)
[2024-10-07 14:31] LABS: Neutrophils Absolute Manual 5440 /uL (3000-5900); Total Cells Counted 100
[2024-10-07 14:32] LABS: Anisocytosis 1+; Macrocytosis 1+; Platelet Estimate Increased on smear
[2024-10-07 15:34] LABS: Creatinine Urine Random 85.46 mg/dL
[2024-10-07 15:37] LABS: Microalbumin Urine Random 0.7 mg/dL (0-1.6)
== END ==
PROVIDERS: PCP Family Medicine; Referring Provider Family Medicine; Visit Provider Family Medicine
DX: D75.839 Thrombocytosis, unspecified (principal); I10 Essential (primary) hypertension
CPT/HCPCS: 36415; 82043; 82570; 82728; 83540; 83550; 85007; 85025

== ENCOUNTER 2024-10-15 12:25 | Emergency (ER) | payer OTHER, SELFPAY ==
[2024-09-18 22:58] VITALS: BMI 22.4
[2024-09-22 21:51] VITALS: PULSE 140; RESP 16; O2SAT 99
[2024-10-15] VITALS (26 sets, daily range): BP systolic 63–122; BP diastolic 47–75; PULSE 77–137; RESP 12–20; TEMP 37; O2SAT 96–100; BMI 23.0
--- NOTE | 2024-10-15 12:43 | ED_ITS ---
HPI - General Adult General Chief complaint: Syncope Stated complaint: low BP, sent by PCP Time Seen by Provider: 10/15/24 12:43 Source: patient Mode of arrival: Wheelchair History of Present Illness HPI narrative: Patient is a 64-year-old male with a past medical history of alcohol abuse, hypertension, PE on Eliquis, small-bowel obstruction, comes into the ED from primary care doctor's office for evaluation of low blood pressure. He states that he recently signed out against medical advice at [facility] a few days ago due to history of small-bowel obstruction and PE with alcoholic pancreatitis. He states that he was following up with the primary care doctor when they noted that his blood pressure was low so sent him into the emergency department. At time of evaluation patient is speaking in full sentences protecting airway, mentating appropriately states he feels a little lightheaded but no actual true syncopal episode. Patient states he has been compliant with the Eliquis and is not complaining of any other symptoms at this time. He does admit to still drinking alcohol, states that at 5:00 a.m. he had 3 ?tall boys. Related Data Home Medications Medication Instructions Recorded Confirmed ascorbic acid (vitamin C) 250 mg 250 mg PO DAILY 04/18/23 10/02/24 tablet magnesium 250 mg tablet 250 mg PO DAILY 05/04/24 10/02/24 atorvastatin 40 mg tablet 40 mg PO BEDTIME 09/18/24 10/02/24 Previous Rx's Medication Instructions Recorded famotidine 20 mg tablet 20 mg PO BEDTIME #90 tabs 04/01/24 ipratropium 0.5 mg-albuterol 3 mg 3 ml inhalation Q6-8H PRN 05/11/24 (2.5 mg base)/3 mL nebulization shortness of breath or wheezing soln #180 mL lisinopril 20 mg tablet 20 mg PO DAILY #30 tabs 06/12/24 tamsulosin 0.4 mg capsule 0.4 mg PO DAILY #90 caps 08/12/24 tiotropium 2.5 mcg-olodaterol 2.5 2 puff inhalation QPM #4 grams 09/16/24 mcg/actuation mist for inhalation naltrexone 50 mg tablet 50 mg PO DAILY #30 tabs 10/02/24 nortriptyline 25 mg capsule 25 mg PO BEDTIME #60 caps 04/08/25 Allergies Allergy/AdvReac Type Severity Reaction Status Date / Time fluconazole Allergy Severe SWEATING, Verified 10/02/24 09:52 SOB, NAUSEA diclofenac [DICLOFENAC] Allergy Intermediate RASH ON Verified 10/02/24 09:52 FACE; LIGHTHEADEDNESS Review of Systems Review of Systems Narrative: General: Denies fever, chills, weight loss HEENT: Denies headache, eye drainage, eye irritation, head trauma, sore throat, voice change Cardiovascular: Denies any chest pain, palpitations, tachycardia Respiratory: Positive low blood pressure, Denies any shortness of breath, cough, wheeze, stridor GI/: Denies any abdominal pain, nausea, vomiting, diarrhea, bright red blood per rectum, melanotic stools, urinary frequency, urinary retention, dysuria, hematuria MSK: Denies any joint pain, muscle pains, swelling Skin: Denies any rashes, lesions, discoloration Neuro: Positive lightheadedness Denies any headache, dizziness, fainting, weakness Psych: Denies SI/HI Patient History Medical History Alcoholism in remission Acute upper GI bleed Mixed hyperlipidemia History of kidney disease as a child (10/09/16) 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) Essential hypertension (10/09/16) Surgical History Hx of appendectomy (1977) Hx of hernia repair (1999) History of nephrectomy (1977) History of unilateral nephrectomy (10/09/16) Family History (Updated 10/02/24 @ 10:29 by Miguel Ángel Bruce MD) Father Congestive heart failure Diabetes mellitus COPD (chronic obstructive pulmonary disease) Mother Hypertension Diabetes mellitus Cancer Other Alcoholism Social History marital status: household members: spouse and family occupational status: previously employed leisure activities: exercise Tobacco: How many years used: 50 alcohol intake: current substance use type: marijuana caffeine: Yes Type(s) of exercise: walking tobacco type: cigarettes alcohol intake frequency: 3 or more drinks per day Alcohol type: beer Exam Narrative Exam Narrative: General: Cooperative, well-developed, not in acute distress HEENT: Normocephalic, atraumatic, PERRLA, normal sclera, eyelids normal Neck: Active full range of motion, atraumatic Chest: Normal to inspection, negative crepitus, no overlying erythema ecchymosis Respiratory: Normal respiratory effort, not in acute respiratory distress, clear to auscultation bilaterally negative cough, wheeze, tachypnea, rhonchi, rales Cardiology: Regular rate rhythm negative gallop, murmur, rubs GI/: No tenderness to palpation, soft, non rigid, normal to inspection, exam deferred MSK: Full active range of motion in all 4 extremities, atraumatic, no tenderness to palpation of any bony prominences Skin: No rashes or lesions noted Neuro: NIH of 0, Alert awake oriented x3, moves all 4 extremities spontaneously, cranial nerves intact, able to answer all questions appropriately follows commands appropriately Psych: Cooperative, negative suicidal or homicidal ideations Initial Vital Signs Initial Vital Signs: Vital Signs Temperature 98.6 F 10/15/24 12:35 Pulse Rate 137 H 10/15/24 12:35 Respiratory Rate 18 10/15/24 12:35 Blood Pressure 63/47 L 10/15/24 12:35 Pulse Oximetry 97 10/15/24 12:35 Oxygen Delivery Method Room Air 10/15/24 12:35 Course Orders Ordered: ED Orders 10/15/24 12:46 EKG-12 Lead Stat 10/15/24 12:47 CT abdomen pelvis w con Stat CT angio chest PE protocol Stat 10/15/24 12:49 Blood Culture Stat Complete Blood Count AUTO DIFF Stat Comprehensive Metabolic Panel Stat ETOH [Ethanol (ETOH)] Stat Lactate (Lactic Acid) Stat Lipase Stat MAG [Magnesium] Stat NT-proBNP (BNP-Adult 18+) Stat PTT Partial Thromboplastin Jose Stat Prothrombin Time INR Stat Troponin & CK Cardiac Panel Stat Discontinued Medications Sodium Chloride (Normal Saline 0.9%) 1,000 mls @ 1,000 mls/hr IV BOLUS ONE Stop: 10/15/24 13:44 Last Infusion: 10/15/24 14:44 Dose: Infused Documented By: Admin: 10/15/24 13:12 Dose: 1,000 mls/hr Documented By: ABHILASH Sodium Chloride (Normal Saline 0.9%) 1,000 mls @ 1,000 mls/hr IV BOLUS ONE Stop: 10/15/24 14:23 Last Admin: 10/15/24 14:02 Dose: 1,000 mls/hr Documented By: ABHILASH Vital Signs Vital signs: Vital Signs - 8 hr 10/15/24 12:35 10/15/24 12:39 10/15/24 12:39 Temperature 98.6 F Pulse Rate 137 H 134 H Respiratory Rate 18 Blood Pressure 63/47 L 71/47 L Pulse Oximetry 97 100 Oxygen Delivery Method Room Air 10/15/24 12:45 10/15/24 12:45 10/15/24 12:50 Temperature Pulse Rate 125 H 125 H Respiratory Rate 15 Blood Pressure 73/50 L Pulse Oximetry 99 98 Oxygen Delivery Method 10/15/24 12:50 10/15/24 13:03 10/15/24 13:04 Temperature Pulse Rate 120 H Respiratory Rate Blood Pressure 83/54 L 85/55 L Pulse Oximetry Oxygen Delivery Method 10/15/24 13:04 10/15/24 13:29 10/15/24 13:29 Temperature Pulse Rate 117 H 110 H Respiratory Rate 19 15 Blood Pressure 110/62 Pulse Oximetry 98 97 Oxygen Delivery Method 10/15/24 13:30 10/15/24 13:30 10/15/24 13:35 Temperature Pulse Rate 109 H 109 H Respiratory Rate 16 17 Blood Pressure 106/64 Pulse Oximetry 97 98 Oxygen Delivery Method 10/15/24 13:35 10/15/24 13:40 10/15/24 13:40 Temperature Pulse Rate 112 H Respiratory Rate 17 Blood Pressure 106/65 116/68 Pulse Oximetry 98 Oxygen Delivery Method 10/15/24 13:45 10/15/24 13:45 10/15/24 13:50 Temperature Pulse Rate 110 H 110 H Respiratory Rate 16 18 Blood Pressure 118/72 Pulse Oximetry 99 98 Oxygen Delivery Method 10/15/24 13:50 10/15/24 13:55 10/15/24 13:55 Temperature Pulse Rate 109 H Respiratory Rate 17 Blood Pressure 118/74 116/75 Pulse Oximetry 98 Oxygen Delivery Method 10/15/24 14:00 10/15/24 14:00 10/15/24 14:05 Temperature Pulse Rate 113 H 110 H Respiratory Rate 17 16 Blood Pressure 115/75 Pulse Oximetry 97 97 Oxygen Delivery Method 10/15/24 14:05 10/15/24 14:10 10/15/24 14:10 Temperature Pulse Rate 113 H Respiratory Rate 17 Blood Pressure 120/72 120/71 Pulse Oximetry 97 Oxygen Delivery Method 10/15/24 14:15 10/15/24 14:15 10/15/24 14:20 Temperature Pulse Rate 111 H 112 H Respiratory Rate 16 16 Blood Pressure 121/71 Pulse Oximetry 97 97 Oxygen Delivery Method 10/15/24 14:20 10/15/24 14:25 10/15/24 14:25 Temperature Pulse Rate 112 H Respiratory Rate 17 Blood Pressure 119/70 121/72 Pulse Oximetry 96 Oxygen Delivery Method 10/15/24 14:30 10/15/24 14:30 10/15/24 14:35 Temperature Pulse Rate 114 H Respiratory Rate 16 Blood Pressure 118/71 120/73 Pulse Oximetry 97 Oxygen Delivery Method 10/15/24 14:35 10/15/24 14:40 10/15/24 14:40 Temperature Pulse Rate 114 H 112 H Respiratory Rate 17 15 Blood Pressure 122/71 Pulse Oximetry 97 97 Oxygen Delivery Method 10/15/24 14:45 10/15/24 14:45 10/15/24 14:48 Temperature Pulse Rate 113 H 109 H 77 Respiratory Rate 15 20 Blood Pressure 117/70 116/69 Pulse Oximetry 97 100 Oxygen Delivery Method Room Air Medical Decision Making Differential Diagnosis Differential Diagnosis: PE, arrhythmia, electrolyte abnormality, pneumonia, SBO, alcohol abuse Lab Data 10/15/24 12:49 10/15/24 12:49 Labs: Lab Results 10/15/24 10/15/24 Range/Units 12:49 15:00 WBC 5.2 (4.5-11.0) X10^3/uL RBC 3.08 L (4.5-5.9) X10^6/uL Hgb 10.7 L (13.5-17.5) g/dL Hct 30.9 L (41-53) % MCV 100.5 H (80-100) fL MCH 34.6 H (26-34) PG MCHC 34.4 (30-36) % RDW 14.8 (11.6-14.8) % Plt Count 511 H (150-400) X10^3/uL Neut % (Auto) 52.9 (50-75) % Lymph % (Auto) 29.6 (25-40) % [place] % (Auto) 9.6 (3-14) % Eos % (Auto) 6.7 H (2-4) % Baso % (Auto) 1.2 (0-2) % Neut # (Auto) 2800 (7887-4047) /uL Lymph # (Auto) 1600 (3610-5354) /uL [place] # (Auto) 500 (0-900) /uL Eos # (Auto) 400 (0-450) /uL Baso # (Auto) 100 (0-100) /uL PT 18.6 H (9.4-12.5) SECONDS INR 1.7 H (0.9-1.3) APTT 41 H (25.1-36.5) SECONDS Sodium 137 (137-145) mmol/L Potassium 4.2 (3.4-5.1) mmol/L Chloride 104 (98-107) mmol/L Carbon Dioxide 23 (22-32) mmol/L BUN 10 (9-20) mg/dL Creatinine 1.29 H (0.66-1.25) mg/dL Estimated GFR > 60 (>60) mL/min BUN/Creatinine Ratio 7.8 (6-22) Glucose 131 H (80-110) mg/dL Lactate 3.2 H 2.1 (0.7-2.1) mmol/L Calcium 9.4 (8.4-10.2) mg/dL Magnesium 1.8 (1.6-2.3) mg/dL Total Bilirubin 0.3 (0.2-1.3) mg/dL AST 54 (17-59) IU/L ALT 26 (<50) IU/L Alkaline Phosphatase 77 (38-126) U/L Total Creatine Kinase < 20 L (55-170) U/L Troponin I < 0.012 (0.01-0.034) ng/mL NT-Pro-B Natriuret Pep < 20 (<125) pg/mL Total Protein 7.7 (6.3-8.2) g/dL Albumin 3.7 (3.5-5.0) g/dL Globulin 4.0 (1.7-4.1) g/dL Albumin/Globulin Ratio 0.9 L (1.0-2.8) Lipase 365 H (23-300) U/L Ethyl Alcohol 37 H ( - 10) mg/dL Imaging Data CTA PE chest: Radiologist's Impression: [address] [address] [address] Scan Report Signed Patient: Donavan Lizama MR#: [id number] : 1960 Acct:[id number] Age/Sex: 64 / M Date of Service: 10/15/24 Loc: ED Accession Number: [id number] Procedure: CT angio chest PE protocol Ordering Provider: Vineet Bhakta D.O. PROCEDURE: CT ANGIO CHEST PE PROTOCOL INDICATIONS: History of PE TECHNIQUE: After the administration of intravenous contrast, 2 mm thick sections acquired from the pulmonary apices to the posterior costophrenic angles. 3-dimensional maximum intensity projection (MIP) coronal and sagittal reformats were then acquired through the thorax. For radiation dose reduction, the following was used: automated exposure control, adjustment of mA and/or kV according to patient size. COMPARISON: [facility], CT, CT CHEST ABD PEL W CON, 09/22/2024, 10:15. [facility], CT, CT ANGIO CHEST PE PROTOCOL, 09/18/2024, 20:11. FINDINGS: Image quality: Diagnostic Lungs and pleura: Mild diffuse ground-glass opacities and nodularity, most prominent in the upper lobes. No pleural effusions. No dense airspace disease. Scattered calcified plaques are seen. Mediastinum, heart, and esophagus: Segmental pulmonary emboli are seen in the right upper lobe. RV to LV ratio is 1. Normal heart size. No pathologic lymph nodes by size criteria Chest wall and thyroid: Possible left supraclavicular lymph node measuring 1 cm. Gynecomastia. Upper abdomen: Separately dictated Bones: There are degenerative changes. IMPRESSION: Positive for right upper lobe pulmonary emboli. RV to LV ratio is 1, equivocal for right heart strain. Likely infectious/inflammatory ground-glass and centrilobular nodules in the upper lobes. Consider future imaging surveillance to assess for resolution. Mildly enlarged possible left supraclavicular lymph node partially seen, indeterminate. This is similar to prior. Called to the ED. CT scan - abdomen/pelvis: Radiologist's Impression: [address] [address] [address] Scan Report Signed Patient: Donavan Lizama MR#: [id number] : 1960 Acct:[id number] Age/Sex: 64 / M Date of Service: 10/15/24 Loc: ED Accession Number: [id number] Procedure: CT abdomen pelvis w con Ordering Provider: Vineet Bhakta D.O. PROCEDURE: CT ABDOMEN PELVIS W CON INDICATIONS: History of SBO TECHNIQUE: After the administration of intravenous contrast, axial sections acquired from the lung bases to the pubic symphysis. Coronal and sagittal reformats were performed. For radiation dose reduction, the following was used: automated exposure control, adjustment of mA and/or kV according to patient size. COMPARISON: [facility], CT, CT ABDOMEN PELVIS W CON, 09/18/2024, 20:12. [facility], CT, CT CHEST ABD PEL W CON, 09/22/2024, 10:15. FINDINGS: Image quality: Diagnostic Lower chest: Separately dictated Liver: Unremarkable Gallbladder and biliary system: Unremarkable, nondilated Pancreas: Uncinate process necrotic collection measures 3.8 x 4.8 cm, larger than prior. No ductal dilation. Spleen: Splenic granulomas. Adrenals: No discrete nodules Kidneys: Right kidney is not seen. Scattered left renal scarring. No hydronephrosis. Vessels and lymph nodes: Main portal vein is patent. No abdominal aortic aneurysm. Pelvic clips are present. No pathologic lymph nodes by size criteria. Bowel and peritoneum: No small bowel obstruction. There is increased edema and soft tissue thickening throughout the mesentery in the upper abdomen. No drainable abscess in the peritoneum. No drainable ascites. Colonic diverticula are seen. Body wall: Small fat containing umbilical Pelvis: Bladder wall thickening. Postsurgical changes in the pelvis. Bones: AVN changes of the femoral heads. There are degenerative osseous findings. IMPRESSION: Increased necrotic collection at the pancreatic uncinate process, possibly related the pancreatitis although an underlying malignancy is possible. Of note, increased mesenteric soft tissue thickening in the upper abdomen, which also raises concern for malignancy. Consider MRI and/or ERCP. Bladder wall thickening, correlate urinalysis. No acute small bowel obstruction. Other findings above. ECG Data Interpretation: EKG interpreted ED physician sinus tachycardia 114 beats per minute QTC [address] changes no STEMI MDM Narrative Medical decision making narrative: 64-year-old male with a history of alcoholic pancreatitis, SBO, PE on Eliquis, hypertension, hyperlipidemia, presents from primary care office for evaluation of low blood pressure. He did sign against medical advice a few days ago from [facility] for new PE and SBO. He states he has been compliant with the Eliquis and his other medications for his high blood pressure. At time of evaluation patient mentating well suggesting feeling a little lightheaded, but no actual syncope. Patient's initial blood pressure map 63, 2 L normal saline ordered. EKG lab work and imaging ordered. EKG nonischemic in nature, patient with normal tension after 2 L normal saline. Patient had repeat scans of his chest and abdomen without any new findings, show stable PE with pancreatic mass. Repeat lactate normal, troponin negative, patient without any leukocytosis, improved thrombocytosis from previous. Patient instructed to follow up with primary care in outpatient setting and continue his medications that he was discharged from outside hospital with, he understands agrees with the plan. Review of previous records show patient with a ejection fraction of 55-60% performed on 09/21/2024 Discharge Plan Departure Patient Disposition: Home Clinical Impression: Pulmonary embolism, Pancreatic mass Activity Restrictions/Additional Instructions: Please follow up with the primary care Please read the discharge instructions sheet carefully and bring all papers to all doctor follow-up visits, as it may contain information that your doctor may want to see. Disease processes change and evolve, if your symptoms worsen or if you develop any new symptoms that are concerning to you please return for evaluation. Your evaluation today does not show any evidence of any life- threatening/serious illnesses requiring admission to the hospital or surgery. Please follow-up with your doctor for re-evaluation in approximately 1 day. Seek immediate medical attention for any worrisome symptoms. *If you do not have a primary care provider please contact the [facility] Resource line at [phone]. They will ask some questions about your medical history and help get you set up with a doctor in the community. Prescriptions: No Action naltrexone 50 mg tablet 50 mg PO DAILY Qty: 30 3RF ascorbic acid (vitamin C) 250 mg tablet 250 mg PO DAILY famotidine 20 mg tablet 20 mg PO BEDTIME Qty: 90 2RF lisinopril 20 mg tablet 20 mg PO DAILY Qty: 30 5RF nortriptyline 25 mg capsule 25 mg PO BEDTIME Qty: 60 0RF magnesium 250 mg tablet 250 mg PO DAILY ipratropium-albuterol 0.5 mg-3 mg(2.5 mg base)/3 mL solution for nebulization 3 ml inhalation Q6-8H PRN (Reason: shortness of breath or wheezing) Qty: 180 0RF atorvastatin 40 mg tablet 40 mg PO BEDTIME tiotropium-olodaterol 2.5-2.5 mcg/actuation mist 2 puff inhalation QPM Qty: 4 11RF tamsulosin 0.4 mg capsule 0.4 mg PO DAILY Qty: 90 3RF Referrals: Miguel Ángel Bruce MD [Primary Care Provider] - Stand Alone Forms: Patient Portal/API/Survey
--- NOTE | 2024-10-15 12:46 | EKG_ITS ---
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
--- NOTE | 2024-10-15 12:47 | DI.CT.S_ITS ---
PROCEDURE: CT ANGIO CHEST PE PROTOCOL INDICATIONS: History of PE TECHNIQUE: After the administration of intravenous contrast, 2 mm thick sections acquired from the pulmonary apices to the posterior costophrenic angles. 3-dimensional maximum intensity projection (MIP) coronal and sagittal reformats were then acquired through the thorax. For radiation dose reduction, the following was used: automated exposure control, adjustment of mA and/or kV according to patient size. COMPARISON: [facility], CT, CT CHEST ABD PEL W CON, 09/22/2024, 10:15. [facility], CT, CT ANGIO CHEST PE PROTOCOL, 09/18/2024, 20:11. FINDINGS: Image quality: Diagnostic Lungs and pleura: Mild diffuse ground-glass opacities and nodularity, most prominent in the upper lobes. No pleural effusions. No dense airspace disease. Scattered calcified plaques are seen. Mediastinum, heart, and esophagus: Segmental pulmonary emboli are seen in the right upper lobe. RV to LV ratio is 1. Normal heart size. No pathologic lymph nodes by size criteria Chest wall and thyroid: Possible left supraclavicular lymph node measuring 1 cm. Gynecomastia. Upper abdomen: Separately dictated Bones: There are degenerative changes. IMPRESSION: Positive for right upper lobe pulmonary emboli. RV to LV ratio is 1, equivocal for right heart strain. Likely infectious/inflammatory ground-glass and centrilobular nodules in the upper lobes. Consider future imaging surveillance to assess for resolution. Mildly enlarged possible left supraclavicular lymph node partially seen, indeterminate. This is similar to prior. Called to the ED. Dictated by: Justo Meeks M.D. on 10/15/2024 at 14:00 Approved by: Justo Meeks M.D. on 10/15/2024 at 14:07
--- NOTE | 2024-10-15 12:47 | DI.CT.S_ITS ---
PROCEDURE: CT ABDOMEN PELVIS W CON INDICATIONS: History of SBO TECHNIQUE: After the administration of intravenous contrast, axial sections acquired from the lung bases to the pubic symphysis. Coronal and sagittal reformats were performed. For radiation dose reduction, the following was used: automated exposure control, adjustment of mA and/or kV according to patient size. COMPARISON: [facility], CT, CT ABDOMEN PELVIS W CON, 09/18/2024, 20:12. [facility], CT, CT CHEST ABD PEL W CON, 09/22/2024, 10:15. FINDINGS: Image quality: Diagnostic Lower chest: Separately dictated Liver: Unremarkable Gallbladder and biliary system: Unremarkable, nondilated Pancreas: Uncinate process necrotic collection measures 3.8 x 4.8 cm, larger than prior. No ductal dilation. Spleen: Splenic granulomas. Adrenals: No discrete nodules Kidneys: Right kidney is not seen. Scattered left renal scarring. No hydronephrosis. Vessels and lymph nodes: Main portal vein is patent. No abdominal aortic aneurysm. Pelvic clips are present. No pathologic lymph nodes by size criteria. Bowel and peritoneum: No small bowel obstruction. There is increased edema and soft tissue thickening throughout the mesentery in the upper abdomen. No drainable abscess in the peritoneum. No drainable ascites. Colonic diverticula are seen. Body wall: Small fat containing umbilical Pelvis: Bladder wall thickening. Postsurgical changes in the pelvis. Bones: AVN changes of the femoral heads. There are degenerative osseous findings. IMPRESSION: Increased necrotic collection at the pancreatic uncinate process, possibly related the pancreatitis although an underlying malignancy is possible. Of note, increased mesenteric soft tissue thickening in the upper abdomen, which also raises concern for malignancy. Consider MRI and/or ERCP. Bladder wall thickening, correlate urinalysis. No acute small bowel obstruction. Other findings above. Dictated by: Justo Meeks M.D. on 10/15/2024 at 14:07 Approved by: Justo Meeks M.D. on 10/15/2024 at 14:12
[2024-10-15 13:12] LABS: Add Manual Diff / Slide Review NO; Basophils Absolute Auto 100 /uL (0-100); Basophils Percent Auto 1.2 % (0-2); Eosinophils Absolute Auto 400 /uL (0-450); Eosinophils Percent Auto 6.7 % (2-4); Hematocrit 30.9 % (41-53); Hemoglobin 10.7 g/dL (13.5-17.5); Lymphocytes Absolute Auto 1600 /uL (1100-4500); Lymphocytes Percent Auto 29.6 % (25-40); Mean Corpuscular HGB Conc 34.4 % (30-36); Mean Corpuscular Hemoglobin 34.6 PG (26-34); Mean Corpuscular Volume 100.5 fL (80-100); Monocytes Absolute Auto 500 /uL (0-900); Monocytes Percent Auto 9.6 % (3-14); Neutrophils Absolute Auto 2800 /uL (1500-7000); Neutrophils Percent Auto 52.9 % (50-75); Platelet Count 511 X10^3/uL (150-400); Red Blood Cell Count 3.08 X10^6/uL (4.5-5.9); Red Cell Distribution Width 14.8 % (11.6-14.8); White Blood Cell Count 5.2 X10^3/uL (4.5-11.0)
[2024-10-15] MEDS: SODIUM CHLORIDE 0.9% 1,000 ML 1000 ML IV ×2 (13:12→14:02)
[2024-10-15 13:15] LABS: INR 1.7 (0.9-1.3); Prothrombin Time 18.6 SECONDS (9.4-12.5)
[2024-10-15 13:18] LABS: PTT Partial Thromboplastin Tim 41 SECONDS (25.1-36.5)
[2024-10-15 13:20] LABS: Alanine Aminotransferase 26 IU/L (<50); Albumin 3.7 g/dL (3.5-5.0); Albumin Globulin Ratio 0.9 (1.0-2.8); Alkaline Phosphatase 77 U/L (38-126); Aspartate Aminotransferase 54 IU/L (17-59); BUN Creatinine Ratio 7.8 (6-22); Bilirubin Total 0.3 mg/dL (0.2-1.3); Blood Urea Nitrogen 10 mg/dL (9-20); Calcium 9.4 mg/dL (8.4-10.2); Carbon Dioxide 23 mmol/L (22-32); Chloride 104 mmol/L (98-107); Creatine Kinase < 20 U/L (55-170); Estimated Glomerular Filt Rate > 60 mL/min (>60); Ethanol (ETOH) 37 mg/dL; Glucose 131 mg/dL (80-110); HEMOLYSIS < 15 (0-50); Lactate (Lactic Acid) 3.2 mmol/L (0.7-2.1); Lipase 365 U/L (23-300); Magnesium 1.8 mg/dL (1.6-2.3); Potassium 4.2 mmol/L (3.4-5.1); Sodium 137 mmol/L (137-145); Total Protein 7.7 g/dL (6.3-8.2)
[2024-10-15 13:31] LABS: NT-proBNP (BNP-Adult 18+) < 20 pg/mL (<125); Troponin I < 0.012 ng/mL (0.01-0.034)
--- NOTE | 2024-10-15 14:04 | PC.NURSE ---
Pt arrived to ED today because he was walking in the yard, felt faint and then passed out on the lawn. States that he called pcp and was advised to come to ED for further work up. Pt hypotensive with systolic bp 80s and tachy w/ HR 120s. Pt denies dizziness, lightheadedness, cp, sob, n/v. Recently admitted to [facility] for GI bleed, etoh pancreatitis & SBO and left AMA. Pt mentating appropriately and a&ox4. Pt has hx of ETOH abuse and states that his last drink was at 0500 today. Takes Alec.
[2024-10-15 14:40] LABS: Reflexed Lactate in 2 Hours Y
[2024-10-15 15:23] LABS: Lactate 2HR (Lactic Acid Rflx) 2.1 mmol/L (0.7-2.1)
== END 2024-10-15 15:47 | disposition home or self-care (01) ==
PROVIDERS: Emergency Provider Student in an Organized Health Care Education/Training Program; PCP Family Medicine
DX: I26.99 Other pulmonary embolism without acute cor pulmonale (principal); K86.89 Other specified diseases of pancreas; R42 Dizziness and giddiness; Z79.01 Long term (current) use of anticoagulants
CPT/HCPCS: 36415; 71275; 74177; 80053; 80320; 82550; 83605; 83690; 83735; 83880; 84484; 85025; 85610; 85730; 87040; 93005; 93010; 96360; 96361; 99284; Q9967

== ENCOUNTER 2024-11-19 15:38 | Emergency (ER) | payer OTHER, SELFPAY ==
[2024-09-18 22:58] VITALS: BMI 22.4
[2024-09-22 21:51] VITALS: PULSE 140; RESP 16; O2SAT 99
[2024-11-19] VITALS (9 sets, daily range): BP systolic 145–173; BP diastolic 78–111; PULSE 112–126; RESP 12–26; TEMP 36.8–36.9; O2SAT 96–98; BMI 23.0; BMI 50.7
--- NOTE | 2024-11-19 15:47 | DI.RAD.S_ITS ---
PROCEDURE: XR CHEST 1V INDICATIONS: Chest Pain TECHNIQUE: One view of the chest was acquired. COMPARISON: [facility], CR, XR CHEST 1V, 09/22/2024, 21:36. [facility], CR, XR CHEST 1V, 09/21/2024, 8:22. FINDINGS AND IMPRESSION: Low lung volumes. On this single view study, no dense airspace disease or pleural effusion. Normal heart size. Mild degenerative osseous changes. Dictated by: Justo Meeks M.D. on 11/19/2024 at 16:37 Approved by: Justo Meeks M.D. on 11/19/2024 at 16:38
--- NOTE | 2024-11-19 15:47 | EKG_ITS ---
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
[2024-11-19] MEDS: ASPIRIN 81 MG CHEW TAB 324 MG PO (16:05)
[2024-11-19 16:34] LABS: INR 0.9 (0.9-1.3); Prothrombin Time 9.8 SECONDS (9.4-12.5)
[2024-11-19 16:37] LABS: PTT Partial Thromboplastin Tim 31 SECONDS (25.1-36.5)
[2024-11-19 16:39] LABS: Add Manual Diff / Slide Review NO; Basophils Absolute Auto 0 /uL (0-100); Basophils Percent Auto 0.3 % (0-2); Eosinophils Absolute Auto 0 /uL (0-450); Eosinophils Percent Auto 0.2 % (2-4); Hematocrit 39.2 % (41-53); Hemoglobin 12.9 g/dL (13.5-17.5); Lymphocytes Absolute Auto 600 /uL (1100-4500); Lymphocytes Percent Auto 9.5 % (25-40); Mean Corpuscular HGB Conc 32.9 % (30-36); Mean Corpuscular Hemoglobin 33.3 PG (26-34); Mean Corpuscular Volume 101.2 fL (80-100); Monocytes Absolute Auto 400 /uL (0-900); Monocytes Percent Auto 5.9 % (3-14); Neutrophils Absolute Auto 5700 /uL (1500-7000); Neutrophils Percent Auto 84.1 % (50-75); Platelet Count 173 X10^3/uL (150-400); Red Blood Cell Count 3.87 X10^6/uL (4.5-5.9); Red Cell Distribution Width 14.3 % (11.6-14.8); White Blood Cell Count 6.7 X10^3/uL (4.5-11.0)
[2024-11-19 16:45] LABS: Alanine Aminotransferase 43 IU/L (<50); Albumin 4.4 g/dL (3.5-5.0); Albumin Globulin Ratio 1.3 (1.0-2.8); Alkaline Phosphatase 103 U/L (38-126); Aspartate Aminotransferase 103 IU/L (17-59); BUN Creatinine Ratio 10.3 (6-22); Bilirubin Total 0.5 mg/dL (0.2-1.3); Blood Urea Nitrogen 8 mg/dL (9-20); Calcium 9.1 mg/dL (8.4-10.2); Carbon Dioxide 22 mmol/L (22-32); Chloride 100 mmol/L (98-107); Creatine Kinase 31 U/L (55-170); Estimated Glomerular Filt Rate > 60 mL/min (>60); Globulin 3.3 g/dL (1.7-4.1); Glucose 118 mg/dL (70-99); HEMOLYSIS < 15 (0-50); Lipase 152 U/L (23-300); Magnesium 1.4 mg/dL (1.6-2.3); Potassium 4.4 mmol/L (3.4-5.1); Sodium 137 mmol/L (137-145); Total Protein 7.7 g/dL (6.3-8.2)
[2024-11-19 16:57] LABS: NT-proBNP (BNP-Adult 18+) 70 pg/mL (<125); Troponin I < 0.012 ng/mL (0.01-0.034)
--- NOTE | 2024-11-19 18:25 | ED.CHESTPAIN ---
HPI - Chest Pain General Chief Complaint: Chest Pain Stated Complaint: SOB, High BP Time Seen by Provider: 11/19/24 18:25 Source: patient, RN notes reviewed and old records reviewed Mode of arrival: Ambulatory Limitations: no limitations Limitations: no limitations History of Present Illness HPI narrative: 64-year-old male history of chronic alcohol use, hypertension, dyslipidemia, recent pulmonary embolism, patient is not currently taking his Eliquis, history small-bowel obstruction with complaint of chest pressure started an hour prior to arrival, hypertension complaint with shortness of breath and nausea. Patient presents with complaint of chest discomfort that is started about 4:00 a.m. this afternoon described as substernal left-sided chest pain does not radiate anywhere, little bit short of breath. No fevers. He was to felt diaphoretic. He was had nausea but no vomiting. Denies any abdominal pain, no back or flank pain. No diarrhea or constipation, no swelling in extremities. No urinary changes. Patient states taking lisinopril, atorvastatin supposed to be taking Eliquis had 10 days' worth but could not get a hold of primary care so has not been taking any since then. That was in September when he last had any medication. 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 Reports allergies to fluconazole and diclofenac. Smokes a half pack tobacco daily, drinks 6 alcoholic drinks daily states he does not feel like he has any withdrawal symptoms. Uses marijuana denies other recreational drugs. His primary care physician is Dr. Bruce. Related Data Home Medications Medication Instructions Recorded Confirmed ascorbic acid (vitamin C) 250 mg 250 mg PO DAILY 04/18/23 11/11/24 tablet magnesium 250 mg tablet 250 mg PO DAILY 05/04/24 11/11/24 apixaban 5 mg tablet (Eliquis) 5 mg PO BID 10/23/24 11/11/24 Previous Rx's Medication Instructions Recorded famotidine 20 mg tablet 20 mg PO BEDTIME #90 tabs 04/01/24 ipratropium 0.5 mg-albuterol 3 mg 3 ml inhalation Q6-8H PRN 05/11/24 (2.5 mg base)/3 mL nebulization shortness of breath or wheezing soln #180 mL lisinopril 20 mg tablet 20 mg PO DAILY #30 tabs 06/12/24 tamsulosin 0.4 mg capsule 0.4 mg PO DAILY #90 caps 08/12/24 tiotropium 2.5 mcg-olodaterol 2.5 2 puff inhalation QPM #4 grams 09/16/24 mcg/actuation mist for inhalation naltrexone 50 mg tablet 50 mg PO DAILY #30 tabs 10/02/24 nortriptyline 25 mg capsule 25 mg PO BEDTIME #60 caps 10/06/24 atorvastatin 40 mg tablet 40 mg PO BEDTIME #90 tabs 11/17/24 Allergies Allergy/AdvReac Type Severity Reaction Status Date / Time fluconazole Allergy Severe SWEATING, Verified 11/11/24 10:19 SOB, NAUSEA diclofenac [DICLOFENAC] Allergy Intermediate RASH ON Verified 11/11/24 10:19 FACE; LIGHTHEADEDNESS Review of Systems Review of Systems ROS Unobtainable: All systems reviewed & are unremarkable except as noted in HPI and below Patient History Medical History Pancreatitis Alcohol withdrawal delirium Alcoholism in remission Acute upper GI bleed Mixed hyperlipidemia History of kidney disease as a child (10/09/16) 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) Essential hypertension (10/09/16) Surgical History Hx of appendectomy (1977) Hx of hernia repair (1999) History of nephrectomy (1977) History of unilateral nephrectomy (10/09/16) Family History Father Congestive heart failure Diabetes mellitus COPD (chronic obstructive pulmonary disease) Mother Hypertension Diabetes mellitus Cancer Other Alcoholism Social History marital status: household members: spouse and family occupational status: previously employed leisure activities: exercise Tobacco: How many years used: 50 alcohol intake: current substance use type: marijuana caffeine: Yes Type(s) of exercise: walking tobacco type: cigarettes alcohol intake frequency: 3 or more drinks per day Alcohol type: beer Exam Narrative Exam Narrative: GENERAL: Alert and oriented x three, thin male in mild distress. No diaphoresis. HEENT: Head normocephalic, atraumatic, EOMI, pupils reactive, face symmetric, moist mucous membranes NECK: Supple, full range of motion CARDIOVASCULAR: Tachycardic but regular rate and rhythm without murmurs, rubs or gallops. No JVD. No edema bilateral lower extremities. RESPIRATORY: Breath sounds equal bilaterally, no wheezes rales or rhonchi. No tachypnea accessory muscle use. ABDOMEN: Soft, nontender. Normoactive bowel sounds all 4 quadrants. No guarding or rebound, rigidity, no mass : No CVA tenderness EXTREMITIES: Normal range of motion, no clubbing or edema. Neurovascularly intact NEUROLOGICAL: Cranial nerves II through XII grossly intact. Moving all extremities SKIN: Warm, dry, no petechiae, no rashes or lesions. Initial Vital Signs Initial Vital Signs: Vital Signs Temperature 98.3 F 11/19/24 15:41 Pulse Rate 126 H 11/19/24 15:41 Respiratory Rate 26 H 11/19/24 15:41 Blood Pressure 160/105 H 11/19/24 15:41 Pulse Oximetry 98 11/19/24 15:41 Oxygen Delivery Method Room Air 11/19/24 15:41 Course Orders Ordered: ED Orders 11/19/24 18:46 CT angio chest PE protocol Stat Discontinued Medications Aspirin (Aspirin 81 Mg Chew Tab) 324 mg PO NOW ONE Stop: 11/19/24 15:48 Last Admin: 11/19/24 16:05 Dose: 243 mg Documented By: RADHA Magnesium Sulfate (Magnesium Sulfate) 2 gm in 50 mls @ 25 mls/hr IV NOW ONE Stop: 11/19/24 20:37 Last Admin: 11/19/24 18:59 Dose: 25 mls/hr Documented By: RADHA Co-signed By: HUMERA Sodium Chloride (Normal Saline 0.9%) 500 mls @ 1,000 mls/hr IV BOLUS ONE Stop: 11/19/24 19:15 Last Infusion: 11/19/24 19:26 Dose: Infused Documented By: Admin: 11/19/24 18:58 Dose: 1,000 mls/hr Documented By: RADHA Ondansetron HCl (Ondansetron 4 Mg/2 Ml Inj) 4 mg IV NOW ONE Stop: 11/19/24 18:47 Last Admin: 11/19/24 18:58 Dose: 4 mg Documented By: RADHA Ondansetron HCl (Ondansetron 4 Mg Odt Prepack) 1 bottle MISC DIRECTED ONE Stop: 11/19/24 20:27 Last Admin: 11/19/24 20:44 Dose: 1 bottle Documented By: Vital Signs Vital signs: Vital Signs - 8 hr 11/19/24 20:44 Temperature 98.4 F Pulse Rate 112 H Respiratory Rate 16 Blood Pressure 145/78 H Pulse Oximetry 98 Oxygen Delivery Method Room Air MDM - Chest Pain Lab Data 11/19/24 16:14 11/19/24 16:14 Labs: Lab Results 11/19/24 11/19/24 Range/Units 16:14 18:24 WBC 6.7 (4.5-11.0) X10^3/uL RBC 3.87 L (4.5-5.9) X10^6/uL Hgb 12.9 L (13.5-17.5) g/dL Hct 39.2 L (41-53) % MCV 101.2 H (80-100) fL MCH 33.3 (26-34) PG MCHC 32.9 (30-36) % RDW 14.3 (11.6-14.8) % Plt Count 173 (150-400) X10^3/uL Neut % (Auto) 84.1 H (50-75) % Lymph % (Auto) 9.5 L (25-40) % Campbell % (Auto) 5.9 (3-14) % Eos % (Auto) 0.2 L (2-4) % Baso % (Auto) 0.3 (0-2) % Neut # (Auto) 5700 (7197-3000) /uL Lymph # (Auto) 600 L (7453-5985) /uL Campbell # (Auto) 400 (0-900) /uL Eos # (Auto) 0 (0-450) /uL Baso # (Auto) 0 (0-100) /uL PT 9.8 (9.4-12.5) SECONDS INR 0.9 (0.9-1.3) APTT 31 (25.1-36.5) SECONDS Sodium 137 (137-145) mmol/L Potassium 4.4 (3.4-5.1) mmol/L Chloride 100 (98-107) mmol/L Carbon Dioxide 22 (22-32) mmol/L BUN 8 L (9-20) mg/dL Creatinine 0.78 (0.66-1.25) mg/dL Estimated GFR > 60 (>60) mL/min BUN/Creatinine Ratio 10.3 (6-22) Glucose 118 H (70-99) mg/dL Calcium 9.1 (8.4-10.2) mg/dL Magnesium 1.4 L (1.6-2.3) mg/dL Total Bilirubin 0.5 (0.2-1.3) mg/dL AST 103 H (17-59) IU/L ALT 43 (<50) IU/L Alkaline Phosphatase 103 (38-126) U/L Total Creatine Kinase 31 L (55-170) U/L Troponin I < 0.012 < 0.012 (0.01-0.034) ng/mL NT-Pro-B Natriuret Pep 70 (<125) pg/mL Total Protein 7.7 (6.3-8.2) g/dL Albumin 4.4 (3.5-5.0) g/dL Globulin 3.3 (1.7-4.1) g/dL Albumin/Globulin Ratio 1.3 (1.0-2.8) Lipase 152 (23-300) U/L Ethyl Alcohol < 10 (<10) mg/dL ECG Data Attestation: I personally reviewed and interpreted this ECG as follows: Interpretation: Sinus tachycardia rate of 121, [place] 166 QRS is 78 QTC of 434, no acute ST elevation depression appreciated. Patient was prior from 10/15/2024 which appears similar to today's with no acute ST changes appreciated. [facility] Narrative Medical decision making narrative: EKG shows sinus tach no acute ST changes. Labs show normal white count, hemoglobin is 12.9 improved compared to September, platelets are 173, coags are normal, electrolytes are normal BUN is 8 creatinine 0.78 glucose is 118, Mag is 1.4, bilirubin is normal with a AST of 103 ALT of 43 alk-phos of 103 lipase is 152 initial troponins less than 0.012 with a BNP of 70. Repeat troponin is negative at 0.012. ETOH is 37. Chest x-ray shows normal heart size, no dense airspace disease or pleural effusion, low lung volumes mild degenerative osseous changes. CT PE protocol she was resolve PE, no acute pulmonic process. Stable scarring anterior left upper lobe, decreased necrosis pancreatic head as well as decreased nodule in the left upper quadrant findings probably indicated resolving pancreatic inflammatory process. Patient had an aspirin 324 mg, patient's magnesium was low received magnesium IV. Patient received 500 mL bolus, Zofran. 64-year-old male history of COPD, known recent pulmonary embolism was on about 10 days Eliquis but did not get any refills. Has had chest pain starting earlier today with some shortness of breath. He was tachycardic, slightly hypertensive no hypoxia. Discussed with the patient initial labs overall appear fairly stable but CT PE was obtained to see if he has a significant large clot or needs to be restarted on medication. Patient's pain maybe secondary to his resolving pancreatitis. no PE at this time so does not have to continue with the anticoagulation. He may have a component of alcohol withdrawal with his hypertension and tachycardia. Patient does note he was having a little bit of alcohol withdrawal symptoms. He would like to return home all questions answered. Discharge Plan Departure Patient Disposition: Home Clinical Impression: Chest pain, Alcohol withdrawal Instructions: DI for Chest Pain Activity Restrictions/Additional Instructions: Please follow up with your physician for recheck. On your imaging your CT does not show any pulmonary embolism at this time, you do have some scarring in the left upper lobe of your lung and some pancreatic changes that appear to be in improving which show what is likely resolving pancreatitis. I suspect your elevated heart rate and blood pressure are related to some alcohol withdrawal today. If you are ever interested in alcohol cessation resources let us know. Continue your home medications as prescribed. Take antinausea medication 1 tablet every 6 hours as needed. Please return if you have new or worsening symptoms, lightheadedness or passing out, worsening chest pain, fevers, nausea or vomiting, new swelling of your extremities or other new or concerning changes. Prescriptions: No Action naltrexone 50 mg tablet 50 mg PO DAILY Qty: 30 3RF ascorbic acid (vitamin C) 250 mg tablet 250 mg PO DAILY famotidine 20 mg tablet 20 mg PO BEDTIME Qty: 90 2RF Eliquis 5 mg tablet 5 mg PO BID lisinopril 20 mg tablet 20 mg PO DAILY Qty: 30 5RF nortriptyline 25 mg capsule 25 mg PO BEDTIME Qty: 60 0RF atorvastatin 40 mg tablet 40 mg PO BEDTIME Qty: 90 3RF magnesium 250 mg tablet 250 mg PO DAILY ipratropium-albuterol 0.5 mg-3 mg(2.5 mg base)/3 mL solution for nebulization 3 ml inhalation Q6-8H PRN (Reason: shortness of breath or wheezing) Qty: 180 0RF tiotropium-olodaterol 2.5-2.5 mcg/actuation mist 2 puff inhalation QPM Qty: 4 11RF tamsulosin 0.4 mg capsule 0.4 mg PO DAILY Qty: 90 3RF Referrals: Miguel Ángel Bruce MD [Primary Care Provider] - Stand Alone Forms: Patient Portal/API/Survey
--- NOTE | 2024-11-19 18:46 | DI.CT.S_ITS ---
PROCEDURE: CT ANGIO CHEST PE PROTOCOL INDICATIONS: L sub/CP, PE 1 month ago, not taking meds, tachy TECHNIQUE: After the administration of intravenous contrast, 2 mm thick sections acquired from the pulmonary apices to the posterior costophrenic angles. 3-dimensional maximum intensity projection (MIP) coronal and sagittal reformats were then acquired through the thorax. For radiation dose reduction, the following was used: automated exposure control, adjustment of mA and/or kV according to patient size. COMPARISON: [facility], CT, CT ABDOMEN PELVIS W CON, 10/15/2024, 13:00. Located [facility], CT, CT ANGIO CHEST PE PROTOCOL, 10/15/2024, 13:00. FINDINGS: Image quality: Diagnostic. Pulmonary arteries: Pulmonary arteries are normal in size, and demonstrate no intraluminal filling defects to suggest central pulmonary embolism. Lower Neck: Stable left supraclavicular nodule measuring 1.1 cm. Thyroid: No thyroid nodules which require sonographic follow up, per consensus guidelines. Axillae: No enlarged lymph nodes. Chest Wall: Unremarkable. Bones: Unremarkable. Lungs and Pleura: No pneumothorax or pleural effusions. Calcified pleural plaques. Persistent mild scarring of the anterior left upper lobe. Heart: Heart size is normal. No pericardial effusion. Thoracic Vessels: No aortic aneurysm. Mediastinum and Christiane: No enlarged lymph nodes. Esophagus: No wall thickening. No hiatal hernia. Upper Abdomen: Decreased necrosis in the pancreatic head measuring 3.5 cm, previously 5.1 cm. Calcified splenic granuloma. Stable junctional cortical defect of the left kidney. Decreased soft tissue nodularity in the left upper quadrant. IMPRESSION: Resolved pulmonary embolus. No acute cardiopulmonary process. Stable scarring of the anterior left upper lobe. Decreased necrosis in the pancreatic head as well as decreased nodularity in the left upper quadrant. Findings probably indicate a resolving pancreatic inflammatory process. Dictated by: Edward Vickers M.D. on 11/19/2024 at 19:52 Approved by: Edward Vickers M.D. on 11/19/2024 at 19:57
[2024-11-19 18:52] LABS: Troponin I < 0.012 ng/mL (0.01-0.034)
[2024-11-19] MEDS: ONDANSETRON 4 MG/2 ML INJ IV (18:58)
[2024-11-19] MEDS: SODIUM CHLORIDE 0.9% 500 ML 1000 ML IV (18:58)
[2024-11-19] MEDS: MAGNESIUM SULFATE 2 GM/50 ML PIGGYBACK IV (18:59)
[2024-11-19] MEDS: ONDANSETRON 4 MG ODT PREPACK 1 BOTTLE MISC (20:44)
[2024-11-19 21:16] LABS: Ethanol (ETOH) < 10 mg/dL (<10)
== END 2024-11-19 20:46 | disposition home or self-care (01) ==
PROVIDERS: Emergency Medicine; Emergency Provider Emergency Medicine; PCP Family Medicine
DX: R07.9 Chest pain, unspecified (principal); F10.239 Alcohol dependence with withdrawal, unspecified; R06.02 Shortness of breath; R11.0 Nausea; Z72.0 Tobacco use
CPT/HCPCS: 36415; 71045; 71275; 80053; 80320; 82550; 83690; 83735; 83880; 84484; 85025; 85610; 85730; 93005; 96365; 96366; 96375; 99284; J2405; J3475; Q9967

== ENCOUNTER 2024-12-19 14:35 | Emergency (ER) | payer OTHER, SELFPAY ==
[2024-09-18 22:58] VITALS: BMI 22.4
[2024-09-22 21:51] VITALS: PULSE 140; RESP 16; O2SAT 99
[2024-12-19] VITALS (10 sets, daily range): BP systolic 167–185; BP diastolic 100–108; PULSE 105–122; RESP 17–42; TEMP 36.8; O2SAT 96–100; BMI 23.0
--- NOTE | 2024-12-19 14:52 | EKG_ITS ---
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
--- NOTE | 2024-12-19 14:59 | ED.CHESTPAIN ---
HPI - Chest Pain General Chief Complaint: Hypertension Stated Complaint: High BP 184/123; pulse 103 sweating, vomiting Time Seen by Provider: 12/19/24 14:41 Source: patient Mode of arrival: Ambulatory Limitations: no limitations History of Present Illness HPI narrative: 64-year-old gentleman history of chronic alcohol use hypertension dyslipidemia recent pulmonary embolism is taking his Eliquis history of small-bowel obstruction presents with headache shortness of breath and nonbilious nonbloody vomit. He reports elevated blood pressure despite taking his medications at home his last drink was yesterday he took 2-1/2 beers. He denies dizziness, weakness, fever, chills, chest pain, diarrhea, constipation, back pain, cough, body aches, neuro complaint. Other than what is stated 14 point review of system is negative Related Data Home Medications ?Medication ?Instructions ?Recorded ?Confirmed ascorbic acid (vitamin C) 250 mg 250 mg PO DAILY 04/18/23 11/11/24 tablet magnesium 250 mg tablet 250 mg PO DAILY 05/04/24 11/11/24 Previous Rx's ?Medication ?Instructions ?Recorded famotidine 20 mg tablet 20 mg PO BEDTIME #90 tabs 04/01/24 ipratropium 0.5 mg-albuterol 3 mg 3 ml inhalation Q6-8H PRN 05/11/24 (2.5 mg base)/3 mL nebulization shortness of breath or wheezing soln #180 mL lisinopril 20 mg tablet 20 mg PO DAILY #30 tabs 06/12/24 tamsulosin 0.4 mg capsule 0.4 mg PO DAILY #90 caps 08/12/24 tiotropium 2.5 mcg-olodaterol 2.5 2 puff inhalation QPM #4 grams 09/16/24 mcg/actuation mist for inhalation naltrexone 50 mg tablet 50 mg PO DAILY #30 tabs 10/02/24 nortriptyline 25 mg capsule 25 mg PO BEDTIME #60 caps 10/06/24 atorvastatin 40 mg tablet 40 mg PO BEDTIME #90 tabs 11/17/24 apixaban 5 mg tablet 5 mg PO BID #180 tabs 11/22/24 ondansetron HCl 4 mg tablet 4 mg PO Q8H PRN nausea and 12/19/24 vomiting #30 tabs Allergies Allergy/AdvReac Type Severity Reaction Status Date / Time fluconazole Allergy Severe SWEATING, Verified 11/11/24 10:19 SOB, NAUSEA diclofenac (DICLOFENAC) Allergy Intermediate RASH ON Verified 11/11/24 10:19 FACE; LIGHTHEADEDNESS Review of Systems Review of Systems ROS Unobtainable: All systems reviewed & are unremarkable except as noted in HPI and below Patient History Medical History Pancreatitis Alcohol withdrawal delirium Alcoholism in remission Acute upper GI bleed Mixed hyperlipidemia History of kidney disease as a child (10/09/16) 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) Essential hypertension (10/09/16) Surgical History Hx of appendectomy (1977) Hx of hernia repair (1999) History of nephrectomy (1977) History of unilateral nephrectomy (10/09/16) Family History Father Congestive heart failure Diabetes mellitus COPD (chronic obstructive pulmonary disease) Mother Hypertension Diabetes mellitus Cancer Other Alcoholism Social History marital status: household members: spouse and family occupational status: previously employed leisure activities: exercise Tobacco: How many years used: 50 alcohol intake: current substance use type: marijuana caffeine: Yes Type(s) of exercise: walking tobacco type: cigarettes alcohol intake frequency: 3 or more drinks per day Alcohol type: beer Exam Narrative Exam Narrative: GENERAL: [64] year old patient appears stated age. Well-developed patient, in mild distress. HEAD: Atraumatic. Normocephalic. EYES: Pupils equal round and reactive. Extraocular motions intact. No scleral icterus. No injection or drainage. ENT: Nose without bleeding, purulent drainage. Throat without erythema, tonsillar hypertrophy or exudate. Airway patent. NECK: Trachea midline. Non tender CARDIOVASCULAR: Tachycardic but Regular rate and rhythm without murmurs, gallops, or rubs. RESPIRATORY: Clear to auscultation. Breath sounds equal bilaterally. No wheezes, rales, or rhonchi. GASTROINTESTINAL: Abdomen soft, non-tender, nondistended. EXTREMITIES: No edema or joint tenderness. BACK: Nontender without deformity or crepitance. No flank tenderness. NEURO: AOx3. GCS 15 nonfocal neuro exam SKIN: No rash or erythema of visible areas Initial Vital Signs Initial Vital Signs: Vital Signs Temperature 98.3 F 12/19/24 14:39 Pulse Rate 122 H 12/19/24 14:39 Respiratory Rate 20 12/19/24 14:39 Blood Pressure 185/107 H 12/19/24 14:39 Pulse Oximetry 100 12/19/24 14:39 Oxygen Delivery Method Room Air 12/19/24 14:39 Course Orders Ordered: ED Orders 12/19/24 14:59 CT chest abd pel w con Stat Ammonia (NH3) Stat 12/19/24 15:10 Complete Blood Count AUTO DIFF Stat Comprehensive Metabolic Panel Stat Lipase Stat Troponin I Stat Discontinued Medications Ondansetron HCl (Ondansetron 4 Mg/2 Ml Inj) 4 mg IV NOW ONE Stop: 12/19/24 15:00 Last Admin: 12/19/24 15:04 Dose: 4 mg Documented By: CTS Vital Signs Vital signs: Vital Signs - 8 hr 12/19/24 14:39 12/19/24 15:03 12/19/24 15:30 Temperature 98.3 F Pulse Rate 122 H 122 H 111 H Respiratory Rate 20 28 H 31 H Blood Pressure 185/107 H Pulse Oximetry 100 98 97 Oxygen Delivery Method Room Air MDM - Chest Pain Lab Data 12/19/24 15:10 12/19/24 15:10 Labs: Lab Results 12/19/24 Range/Units 15:10 WBC 6.6 (4.5-11.0) X10^3/uL RBC 3.65 L (4.5-5.9) X10^6/uL Hgb 12.3 L (13.5-17.5) g/dL Hct 36.4 L (41-53) % MCV 99.8 (80-100) fL MCH 33.7 (26-34) PG MCHC 33.8 (30-36) % RDW 15.7 H (11.6-14.8) % Plt Count 163 (150-400) X10^3/uL Neut % (Auto) 80.8 H (50-75) % Lymph % (Auto) 9.4 L (25-40) % Milam % (Auto) 9.1 (3-14) % Eos % (Auto) 0.3 L (2-4) % Baso % (Auto) 0.4 (0-2) % Neut # (Auto) 5300 (3523-8664) /uL Lymph # (Auto) 600 L (5705-0915) /uL Milam # (Auto) 600 (0-900) /uL Eos # (Auto) 0 (0-450) /uL Baso # (Auto) 0 (0-100) /uL Sodium 138 (137-145) mmol/L Potassium 3.8 (3.4-5.1) mmol/L Chloride 102 (98-107) mmol/L Carbon Dioxide 30 (22-32) mmol/L BUN 6 L (9-20) mg/dL Creatinine 0.66 (0.66-1.25) mg/dL Estimated GFR > 60 (>60) mL/min BUN/Creatinine Ratio 9.1 (6-22) Glucose 160 H (70-99) mg/dL Calcium 9.8 (8.4-10.2) mg/dL Total Bilirubin 0.5 (0.2-1.3) mg/dL AST 200 H (17-59) IU/L ALT 106 H (<50) IU/L Alkaline Phosphatase 99 (38-126) U/L Troponin I < 0.012 (0.01-0.034) ng/mL Total Protein 7.5 (6.3-8.2) g/dL Albumin 4.2 (3.5-5.0) g/dL Globulin 3.3 (1.7-4.1) g/dL Albumin/Globulin Ratio 1.3 (1.0-2.8) Lipase 198 (23-300) U/L Imaging Data CT scan - abdomen/pelvis: Radiologist's Impression: [place] [address] CT Scan Report Signed Patient: Donavan Lizama MR#: [id number] : 1960 Acct:[id number] Age/Sex: 64 / M Date of Service: 12/19/24 Loc: ED Accession Number: [id number] Procedure: CT chest abd pel w con Ordering Provider: Josue Pepe D.O. PROCEDURE: CT CHEST ABD PEL W CON INDICATIONS: abd pain n/v TECHNIQUE: After the administration of intravenous contrast, 5 mm thick sections acquired from the lung apices to the symphysis. 5 mm coronal and sagittal reformats were performed, with additional 7 mm MIP reformats through the lungs. For radiation dose reduction, the following was used: automated exposure control, adjustment of mA and/or kV according to patient size. COMPARISON: [facility], CT, CT CHEST ABD PEL W CON, 09/22/2024, 10:15. FINDINGS: Image quality: Excellent. CHEST: Lower Neck: No enlarged lymph nodes. Thyroid: No thyroid nodules which require sonographic follow up, per consensus guidelines. Axillae: No enlarged lymph nodes. Chest Wall: Unremarkable. Lungs and Pleura: No pneumothorax or pleural effusions. No consolidation or suspicious nodules. Right posterior calcified pleural plaques are unchanged. Heart: Heart size is normal. No pericardial effusion. Thoracic Vessels: The aorta and pulmonary arteries demonstrate normal size. Mediastinum and Christiane: No enlarged lymph nodes. Esophagus: No wall thickening. No hiatal hernia. ABDOMEN: Liver: No solid mass. Gallbladder: No radiopaque gallstones or wall thickening. Biliary ducts: No biliary dilation. Pancreas: Again seen is a hypoattenuating lesion at the pancreatic head which measures 2.9 x 2.4 x 2.7 cm. This lesion is subjectively larger and more defined than on the previous exam. There is no biliary ductal dilation. Spleen: Size is within normal limits. Multiple small calcifications are likely the sequela of prior granulomatous disease. The Adrenal Glands: No adrenal nodules. Kidneys and Ureters: The right kidney is surgically absent. There is no suspicious mass at the surgical bed. The left kidney shows multifocal cortical irregularity suggestive of remote infarcts without hydronephrosis or solid mass. No complex renal cystic lesion which requires follow up. Stomach and Bowel: Normal colonic caliber, without significant wall thickening. Numerous sigmoid diverticula are shown without associated inflammation. Peritoneum: No abnormal intraperitoneal fluid. No free air. Ventral Wall: No significant ventral hernia. Abdominal Nodes: No retroperitoneal or mesenteric adenopathy by size criteria. Vessels: Aorta and inferior vena cava are normal in size. PELVIS: Pelvic Organs: Unremarkable. Bladder: No bladder wall thickening, accounting for underdistention. Pelvic Nodes: No enlarged lymph nodes. Miscellaneous: No inguinal hernias are seen. Bones: No aggressive osseous abnormality. IMPRESSION: 1. Persistent hypoattenuating pancreatic head lesion concerning for neoplasm given the interval resolution of other findings related to pancreatitis. 2. No acute cardiopulmonary or abdominal process. Dictated by: Tova Quiñones M.D. on 12/19/2024 at 15:04 Approved by: Tova Quiñones M.D. on 12/19/2024 at 15:13 ECG Data Interpretation: Sinus Tach HR 119 WA 162 QRS [address]-t wave Unchanged from 11/19/24 MDM Narrative Medical decision making narrative: All lab work, vital signs, nurse triage note, medication list, previous ER visits, and all imaging modality reviewed. Normal white count hemoglobin 12.3 glucose 160 AST 200 ALT 106 troponin less than 0.012 EKG showed sinus tachycardia at 1:19 a.m. unchanged from 11/19/2024 no STT wave changes. Patient given fluids here Zofran and Ativan. CTA chest abdomen persistent hypoattenuating pancreatic head lesion concerning for neoplasm given the interval resolution of other findings related to pancreatitis. No other acute cardiopulmonary or abdominal process. Lipase 198. Differential diagnosis includes alcohol use abuse withdrawal pancreatitis pancreatic tumor electrolyte derangement. Have patient follow up with PCP on Saturday for follow up regarding pancreatic lesion. Discharge Plan Departure Patient Disposition: Home Clinical Impression: Pancreatic lesion, Alcohol use disorder Nausea & vomiting Qualifiers: Vomiting type: unspecified Qualified Code(s): R11.2 - Nausea with vomiting, unspecified Instructions: Nausea and Vomiting-Adult Activity Restrictions/Additional Instructions: Return with new or worsening symptoms. Take your medicines directed. Follow up with Dr. Bruce regarding your pancreatic lesion on Saturday call office for appointment. Prescriptions: New ondansetron HCl 4 mg tablet 4 mg PO Q8H PRN (Reason: nausea and vomiting) Qty: 30 0RF No Action naltrexone 50 mg tablet 50 mg PO DAILY Qty: 30 3RF ascorbic acid (vitamin C) 250 mg tablet 250 mg PO DAILY famotidine 20 mg tablet 20 mg PO BEDTIME Qty: 90 2RF lisinopril 20 mg tablet 20 mg PO DAILY Qty: 30 5RF nortriptyline 25 mg capsule 25 mg PO BEDTIME Qty: 60 0RF atorvastatin 40 mg tablet 40 mg PO BEDTIME Qty: 90 3RF apixaban 5 mg tablet 5 mg PO BID Qty: 180 0RF magnesium 250 mg tablet 250 mg PO DAILY ipratropium-albuterol 0.5 mg-3 mg(2.5 mg base)/3 mL solution for nebulization 3 ml inhalation Q6-8H PRN (Reason: shortness of breath or wheezing) Qty: 180 0RF tiotropium-olodaterol 2.5-2.5 mcg/actuation mist 2 puff inhalation QPM Qty: 4 11RF tamsulosin 0.4 mg capsule 0.4 mg PO DAILY Qty: 90 3RF Referrals: Miguel Ángel Bruce MD [Primary Care Provider, Family Practice] Stand Alone Forms: Patient Portal/API
[2024-12-19] MEDS: ONDANSETRON 4 MG/2 ML INJ IV (15:04)
[2024-12-19 15:25] LABS: Add Manual Diff / Slide Review NO; Basophils Absolute Auto 0 /uL (0-100); Basophils Percent Auto 0.4 % (0-2); Eosinophils Absolute Auto 0 /uL (0-450); Eosinophils Percent Auto 0.3 % (2-4); Hematocrit 36.4 % (41-53); Hemoglobin 12.3 g/dL (13.5-17.5); Lymphocytes Absolute Auto 600 /uL (1100-4500); Lymphocytes Percent Auto 9.4 % (25-40); Mean Corpuscular HGB Conc 33.8 % (30-36); Mean Corpuscular Hemoglobin 33.7 PG (26-34); Mean Corpuscular Volume 99.8 fL (80-100); Monocytes Absolute Auto 600 /uL (0-900); Monocytes Percent Auto 9.1 % (3-14); Neutrophils Absolute Auto 5300 /uL (1500-7000); Neutrophils Percent Auto 80.8 % (50-75); Platelet Count 163 X10^3/uL (150-400); Red Blood Cell Count 3.65 X10^6/uL (4.5-5.9); Red Cell Distribution Width 15.7 % (11.6-14.8); White Blood Cell Count 6.6 X10^3/uL (4.5-11.0)
[2024-12-19 15:32] LABS: Alanine Aminotransferase 106 IU/L (<50); Albumin 4.2 g/dL (3.5-5.0); Albumin Globulin Ratio 1.3 (1.0-2.8); Alkaline Phosphatase 99 U/L (38-126); Aspartate Aminotransferase 200 IU/L (17-59); BUN Creatinine Ratio 9.1 (6-22); Bilirubin Total 0.5 mg/dL (0.2-1.3); Blood Urea Nitrogen 6 mg/dL (9-20); Calcium 9.8 mg/dL (8.4-10.2); Carbon Dioxide 30 mmol/L (22-32); Chloride 102 mmol/L (98-107); Estimated Glomerular Filt Rate > 60 mL/min (>60); Globulin 3.3 g/dL (1.7-4.1); Glucose 160 mg/dL (70-99); HEMOLYSIS < 15 (0-50); Lipase 198 U/L (23-300); Potassium 3.8 mmol/L (3.4-5.1); Sodium 138 mmol/L (137-145); Total Protein 7.5 g/dL (6.3-8.2)
--- NOTE | 2024-12-19 15:34 | PC.NURSE ---
Patient states feeling better after the zofran.
[2024-12-19 15:44] LABS: Troponin I < 0.012 ng/mL (0.01-0.034)
[2024-12-19] MEDS: LACTATED RINGERS 1,000 ML 1000 ML IV (16:36)
[2024-12-19] MEDS: LORazepam 0.5 MG TABLET 2 MG PO (16:58)
== END 2024-12-19 17:44 | disposition home or self-care (01) ==
PROVIDERS: Emergency Provider Family Medicine; PCP Family Medicine
DX: K86.89 Other specified diseases of pancreas (principal); R11.2 Nausea with vomiting, unspecified; R51.9 Headache, unspecified; R06.02 Shortness of breath; F10.90 Alcohol use, unspecified, uncomplicated; R00.0 Tachycardia, unspecified; Z86.711 Personal history of pulmonary embolism; Z79.01 Long term (current) use of anticoagulants
CPT/HCPCS: 36415; 71260; 74177; 80053; 83690; 84484; 85025; 93005; 93010; 96361; 96374; 99284; J2405; Q9967

== ENCOUNTER → 2025-02-05 14:45 | Outpatient (CLI) | payer OTHER, SELFPAY ==
[2024-12-21 14:26] VITALS: PULSE 140; RESP 16; O2SAT 99; BMI 22.4
[2025-02-09 07:10] LABS: PSA, Total 7.1 ng/mL (0.0-4.0)
== END ==
PROVIDERS: PCP Family Medicine; Referring Provider Urology; Visit Provider Urology
DX: R97.20 Elevated prostate specific antigen [PSA] (principal)
CPT/HCPCS: 36415; 84153; 84154

== ENCOUNTER 2025-02-06 09:22 | Emergency (ER) | payer OTHER, SELFPAY ==
[2024-12-21 14:26] VITALS: PULSE 140; RESP 16; O2SAT 99; BMI 22.4
[2025-02-06] VITALS (14 sets, daily range): BP systolic 116–149; BP diastolic 77–101; PULSE 90–133; RESP 13–22; TEMP 36.4; O2SAT 95–98; BMI 21.4
--- NOTE | 2025-02-06 09:35 | EKG_ITS ---
[facility] [address] [place] [id number] Test Date: 2025-02-06 Pat Name: Donavan Lizama Department: [facility] Room: Gender: Male [employer] Inspector: GHADA : 1960 Requested By: Order Number: [id number] Reading MD: Demetris Zimmer Measurements Intervals [place] Rate: 97 P: 53 GA: 160 QRS: 26 QRSD: 90 T: 60 QT: 344 QTc: 436 Interpretive Statements Normal sinus rhythm Electronically Signed On 02-06-2025 10:27:09 PDT by Demetris Zimmer
[2025-02-06 10:03] LABS: Add Manual Diff / Slide Review NO; Hematocrit 34.6 % (41-53); Hemoglobin 12.0 g/dL (13.5-17.5); Lymphocytes Absolute Auto 1000 /uL (1100-4500); Mean Corpuscular HGB Conc 34.8 % (30-36); Mean Corpuscular Hemoglobin 35.2 PG (26-34); Mean Corpuscular Volume 101.2 fL (80-100); Platelet Count 147 X10^3/uL (150-400)
[2025-02-06 10:17] LABS: Alanine Aminotransferase 129 IU/L (<50); Albumin 4.3 g/dL (3.5-5.0); Albumin Globulin Ratio 1.2 (1.0-2.8); Alkaline Phosphatase 106 U/L (38-126); Blood Urea Nitrogen 12 mg/dL (9-20); Calcium 8.6 mg/dL (8.4-10.2); Carbon Dioxide 25 mmol/L (22-32); Chloride 102 mmol/L (98-107); Estimated Glomerular Filt Rate > 60 mL/min (>60); Globulin 3.5 g/dL (1.7-4.1); Glucose 111 mg/dL (70-99); HEMOLYSIS 17 (0-50); Lipase 189 U/L (23-300); Potassium 4.2 mmol/L (3.4-5.1); Sodium 139 mmol/L (137-145); Total Protein 7.8 g/dL (6.3-8.2)
--- NOTE | 2025-02-06 10:27 | ED.GENADULT ---
HPI - General Adult General Chief complaint: Abdominal Pain Stated complaint: Back pain/discomfort;spot on pancreas Time Seen by Provider: 02/06/25 09:39 Source: patient Mode of arrival: Ambulatory History of Present Illness HPI narrative: 64-year-old gentleman with a history of alcohol use disorder, hypertension, hyperlipidemia asthma, prior GI bleeding presents today complaining of acute abdominal pain in the right mid back/flank area wrapping around to the front. It is worse this morning. He has multiple bruises over his back in various stages of healing appear to be at least 3 to 5-day-old with no explanation for bruises. Does not have a history of kidney stones, slightly nauseated but not vomiting. Declines pain medication for the right flank pain at this time Related Data Home Medications ?Medication ?Instructions ?Recorded ?Confirmed ascorbic acid (vitamin C) 250 mg 250 mg PO DAILY 04/18/23 01/08/25 tablet magnesium 250 mg tablet 250 mg PO DAILY 05/04/24 01/08/25 Previous Rx's ?Medication ?Instructions ?Recorded apixaban 5 mg tablet 5 mg PO BID #180 tabs 11/22/24 ondansetron 4 mg disintegrating 4 mg PO Q8H PRN nausea and 12/19/24 tablet vomiting #30 tabs ondansetron HCl 4 mg tablet 4 mg PO Q8H PRN nausea and 12/19/24 vomiting #30 tabs atorvastatin 40 mg tablet 40 mg PO BEDTIME #90 tabs 12/24/24 famotidine 20 mg tablet 20 mg PO BEDTIME #90 tabs 12/24/24 ipratropium 0.5 mg-albuterol 3 mg 3 ml inhalation Q6-8H PRN 12/24/24 (2.5 mg base)/3 mL nebulization shortness of breath or wheezing soln #180 mL naltrexone 50 mg tablet 50 mg PO DAILY #30 tabs 12/24/24 nortriptyline 25 mg capsule 25 mg PO BEDTIME #90 caps 12/24/24 tamsulosin 0.4 mg capsule 0.4 mg PO DAILY #90 caps 12/24/24 tiotropium 2.5 mcg-olodaterol 2.5 2 puff inhalation QPM #4 grams 12/24/24 mcg/actuation mist for inhalation lisinopril 30 mg tablet 20 mg (0.6667 x 30 mg) PO DAILY 01/08/25 #90 tabs lidocaine 5 % topical patch 1 patch topical DAILY #30 ea 02/06/25 (Lidocan III) Allergies Allergy/AdvReac Type Severity Reaction Status Date / Time fluconazole Allergy Severe SWEATING, Verified 02/06/25 09:28 SOB, NAUSEA diclofenac (DICLOFENAC) Allergy Intermediate RASH ON Verified 02/06/25 09:28 FACE; LIGHTHEADEDNESS Review of Systems Review of Systems Narrative: Pertinent positive and negative findings as per HPI Patient History Medical History Pancreatitis Alcohol withdrawal delirium Alcoholism in remission Acute upper GI bleed Mixed hyperlipidemia History of kidney disease as a child (10/09/16) 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) Essential hypertension (10/09/16) Surgical History Hx of appendectomy (1977) Hx of hernia repair (1999) History of nephrectomy (1977) History of unilateral nephrectomy (10/09/16) Family History Father Congestive heart failure Diabetes mellitus COPD (chronic obstructive pulmonary disease) Mother Hypertension Diabetes mellitus Cancer Other Alcoholism Social History marital status: household members: spouse and family occupational status: previously employed leisure activities: exercise Smoking Status: Current every day smoker Tobacco: How many years used: 50 alcohol intake: current substance use type: marijuana caffeine: Yes Type(s) of exercise: walking Smoking Status: Current every day smoker tobacco type: cigarettes alcohol intake frequency: 3 or more drinks per day Alcohol type: beer Exam Initial Vital Signs Initial Vital Signs: Vital Signs Temperature 97.6 F 02/06/25 09:27 Pulse Rate 122 H 02/06/25 09:27 Respiratory Rate 20 02/06/25 09:27 Blood Pressure 133/85 02/06/25 09:27 Pulse Oximetry 97 02/06/25 09:27 Oxygen Delivery Method Room Air 02/06/25 09:27 General: Thin, chronically ill-appearing Able to give a complete and coherent history. Well-nourished well-developed HEENT: Moist mucous membranes, normal sclera with reactive pupils, Respiratory: Lungs are clear to auscultation, no wheezing no rales no rhonchi. Full and symmetrical air movement Cardiac: Regular rate and rhythm no murmurs no bruits Abdomen: Soft, mild flank and right lower quadrant tenderness, multiple bruises over the entire back, T8-L1 levels, no midline spine tenderness or lower rib pain with palpation Neurologic: Grossly neurologically intact with no obvious asymmetries or abnormalities, Extremities: No trauma, well perfused Psych: Cooperative, appropriate insight and affect Course Orders Ordered: ED Orders 02/06/25 09:35 EKG-12 Lead Stat 02/06/25 09:50 Complete Blood Count AUTO DIFF Stat Comprehensive Metabolic Panel Stat Lipase Stat 02/06/25 10:38 CT chest abd pel w con Stat Ondansetron HCl (Ondansetron 4 Mg/2 Ml Inj) 4 mg IV NOW PRN PRN Reason: Nausea And Vomiting Ondansetron HCl (Ondansetron 4 Mg Odt) 4 mg PO NOW PRN PRN Reason: Nausea And Vomiting Vital Signs Vital signs: Vital Signs - 8 hr 02/06/25 09:27 02/06/25 09:46 02/06/25 09:47 Temperature 97.6 F Pulse Rate 122 H 111 H 109 H Respiratory Rate 20 18 Blood Pressure 133/85 Pulse Oximetry 97 Oxygen Delivery Method Room Air 02/06/25 09:47 02/06/25 10:00 02/06/25 10:00 Temperature Pulse Rate 109 H Respiratory Rate 16 Blood Pressure 116/81 116/77 Pulse Oximetry 97 Oxygen Delivery Method 02/06/25 10:30 02/06/25 10:30 02/06/25 11:01 Temperature Pulse Rate 98 H 109 H Respiratory Rate 17 22 Blood Pressure 132/78 Pulse Oximetry 95 95 Oxygen Delivery Method 02/06/25 11:30 02/06/25 11:36 02/06/25 11:36 Temperature Pulse Rate 101 H 113 H Respiratory Rate 14 19 Blood Pressure 126/79 Pulse Oximetry 96 96 Oxygen Delivery Method 02/06/25 12:00 02/06/25 12:30 Temperature Pulse Rate 120 H 120 H Respiratory Rate 17 13 Blood Pressure 126/79 Pulse Oximetry 96 95 Oxygen Delivery Method Medical Decision Making Lab Data 02/06/25 09:50 02/06/25 09:50 Labs: Lab Results 02/06/25 Range/Units 09:50 WBC 3.8 L (4.5-11.0) X10^3/uL RBC 3.42 L (4.5-5.9) X10^6/uL Hgb 12.0 L (13.5-17.5) g/dL Hct 34.6 L (41-53) % MCV 101.2 H (80-100) fL MCH 35.2 H (26-34) PG MCHC 34.8 (30-36) % RDW 15.5 H (11.6-14.8) % Plt Count 147 L (150-400) X10^3/uL Neut % (Auto) 57.0 (50-75) % Lymph % (Auto) 25.5 (25-40) % [place] % (Auto) 12.4 (3-14) % Eos % (Auto) 4.3 H (2-4) % Baso % (Auto) 0.8 (0-2) % Neut # (Auto) 2200 (9246-5950) /uL Lymph # (Auto) 1000 L (9057-8961) /uL [place] # (Auto) 500 (0-900) /uL Eos # (Auto) 200 (0-450) /uL Baso # (Auto) 0 (0-100) /uL Sodium 139 (137-145) mmol/L Potassium 4.2 (3.4-5.1) mmol/L Chloride 102 (98-107) mmol/L Carbon Dioxide 25 (22-32) mmol/L BUN 12 (9-20) mg/dL Creatinine 0.88 (0.66-1.25) mg/dL Estimated GFR > 60 (>60) mL/min BUN/Creatinine Ratio 13.6 (6-22) Glucose 111 H (70-99) mg/dL Calcium 8.6 (8.4-10.2) mg/dL Total Bilirubin 0.7 (0.2-1.3) mg/dL AST 300 H (17-59) IU/L ALT 129 H (<50) IU/L Alkaline Phosphatase 106 (38-126) U/L Total Protein 7.8 (6.3-8.2) g/dL Albumin 4.3 (3.5-5.0) g/dL Globulin 3.5 (1.7-4.1) g/dL Albumin/Globulin Ratio 1.2 (1.0-2.8) Lipase 189 (23-300) U/L MDM Narrative Medical decision making narrative: CC: Acute right flank pain Complicating co-morbidities: Alcohol use disorder, hypertension, hyperlipidemia, incidentally appreciated multiple bruises over the mid back lower ribs with no recollection of trauma Data collected from: patient Medical records reviewed: Recent family practice visit as well as prior ER visit on December 24 are both reviewed Differential considered: Blunt trauma with fall while he was intoxicated with internal bleeding. Kidney stone, pyelonephritis, bowel obstruction Exam documented above, pertinent findings include: Patient is calm appropriate, abdomen is not acute but he does have some tenderness in the right flank area and over the areas of bruising. Heart and lungs are benign Lab Test results independently reviewed as above. Pertinent findings: CBC shows relative pancytopenia with white count at 3.8, hemoglobin at 12.0 and platelets at 147. The hemoglobin seems essentially stable Chemistries are notable for appropriate renal function liver studies show increase to AST and ALT at 300 and 129 respectively. This is higher than when last checked in November. Independently reviewed EKG: EKG shows a rate of 97 with no acute ischemic changes Imaging studies independently reviewed: CT of the chest abdomen and pelvis does not show any evidence of trauma such as broken ribs, new compression fractures, unexplained hematomas, intra-abdominal pathology of immediate concern. No new gallbladder liver disease Treatments: Lidocaine patch for the back pain. 5 mg of diazepam as he is starting to have alcohol withdrawal symptoms near the end of his ER stay Discussion: 64-year-old gentleman comes in complaining of right-sided back pain. He has multiple bruises over his entire mid back and no recollection of why this is here. CT scan does not show rib fractures, spine fractures, intra-abdominal hemorrhage or other pathology to explain his back pain and no complications from falling while on Eliquis. We discussed pain control options. With his alcohol use disorder, elevated liver enzymes Tylenol is not going to be appropriate. It anticoagulated so nonsteroidals are not appropriate. He is going to continue drinking so narcotics are not appropriate. Did give him a prescription for lidocaine patches to see if this makes a difference. We also discussed his alcohol use disorder, he is having moderate withdrawal symptoms prior to discharge and is given 5 mg of IV diazepam to address this. He has been through rehab multiple times previously I strongly recommended he consider revisiting this option. At this point there is no evidence of life-threatening trauma, bleeding or other pathology and he is safe for discharge Discharge Plan Departure Patient Disposition: Home Clinical Impression: Musculoskeletal back pain Activity Restrictions/Additional Instructions: Thank you for coming in today. Your back pain does seem to be related to whatever type of trauma cause the bruising all over your back. The CT scan that we did does not show any internal injury, no extra bleeding, there was no rib fractures and no spine fractures. I have given you a lidocaine patch to see if this helps with the pain. If it does you can feel a written prescription that I have also provided. Your liver is showing signs of your alcohol use disorder. Avoiding Tylenol is probably going to be helpful. Completely avoiding alcohol is absolutely going to be helpful. I would strongly recommend that you again look into detox and rehab programs You can not use nonsteroidals for pain control because you are anticoagulated We did talk about narcotics however mixing narcotics and alcohol can make you stop breathing. If you find that you are getting worse or develop any new symptoms, please feel free to return to the emergency department for further evaluation. Prescriptions: New lidocaine [Lidocan III] 5 % adhesive patch,medicated 1 patch topical DAILY Qty: 30 0RF Rx Instructions: leave on most painful area for up to 12 hrs No Action ascorbic acid (vitamin C) 250 mg tablet 250 mg PO DAILY atorvastatin 40 mg tablet 40 mg PO BEDTIME Qty: 90 3RF nortriptyline 25 mg capsule 25 mg PO BEDTIME Qty: 90 3RF naltrexone 50 mg tablet 50 mg PO DAILY Qty: 30 3RF tamsulosin 0.4 mg capsule 0.4 mg PO DAILY Qty: 90 3RF famotidine 20 mg tablet 20 mg PO BEDTIME Qty: 90 3RF ipratropium-albuterol 0.5 mg-3 mg(2.5 mg base)/3 mL solution for nebulization 3 ml inhalation Q6-8H PRN (Reason: shortness of breath or wheezing) Qty: 180 2RF tiotropium-olodaterol 2.5-2.5 mcg/actuation mist 2 puff inhalation QPM Qty: 4 11RF lisinopril 30 mg tablet 20 mg PO DAILY Qty: 90 3RF apixaban 5 mg tablet 5 mg PO BID Qty: 180 0RF magnesium 250 mg tablet 250 mg PO DAILY ondansetron HCl 4 mg tablet 4 mg PO Q8H PRN (Reason: nausea and vomiting) Qty: 30 0RF ondansetron 4 mg tablet,disintegrating 4 mg PO Q8H PRN (Reason: nausea and vomiting) Qty: 30 0RF Referrals: Miguel Ángel Bruce MD [Primary Care Provider, Family Practice] Stand Alone Forms: Patient Portal/API
--- NOTE | 2025-02-06 10:38 | DI.CT.S_ITS ---
PROCEDURE: CT CHEST ABD PEL W CON INDICATIONS: Blunt trauma, multiple bruises to the back, history of alcoh TECHNIQUE: After the administration of intravenous contrast, 5 mm thick sections acquired from the lung apices to the symphysis. 5 mm coronal and sagittal reformats were performed, with additional 7 mm MIP reformats through the lungs. For radiation dose reduction, the following was used: automated exposure control, adjustment of mA and/or kV according to patient size. COMPARISON: [facility], CT, CT CHEST ABD PEL W CON, 12/19/2024, 15:13. FINDINGS: Image quality: Excellent. CHEST: Lower Neck: No enlarged lymph nodes. Thyroid: No thyroid nodules which require sonographic follow up, per consensus guidelines. Axillae: No enlarged lymph nodes. Chest Wall: Unremarkable. Lungs and Pleura: No pneumothorax or pleural effusions. No consolidation or suspicious nodules. Heart: Heart size is normal. No pericardial effusion. Thoracic Vessels: The aorta and pulmonary arteries demonstrate normal size. Mediastinum and [place]: No enlarged lymph nodes. Esophagus: No wall thickening. Bilateral calcified pleural plaques. hiatal hernia. ABDOMEN: Liver: No solid mass. Severe hepatic steatosis. Gallbladder: No radiopaque gallstones or wall thickening. Biliary ducts: No biliary dilation. Pancreas: No ductal dilation. Inferior pancreatic head cystic mass measuring 2.5 cm, unchanged. Spleen: Size is within normal limits. Sequela prior granulomatous disease. Adrenal Glands: No adrenal nodules. Kidneys and Ureters: The right kidney is surgically absent. Multiple peripheral cortical defects and/or scarring. No hydronephrosis. Stomach and Bowel: Normal colonic caliber, without significant wall thickening. Colonic diverticula without evidence of acute diverticulitis. Peritoneum: No abnormal intraperitoneal fluid. No free air. Ventral Wall: No significant ventral hernia. Abdominal Nodes: No retroperitoneal or mesenteric adenopathy by size criteria. Vessels: Aorta and inferior vena cava are normal in size. PELVIS: Pelvic Organs: Unremarkable. Bladder: No bladder wall thickening, accounting for underdistention. Pelvic Nodes: No enlarged lymph nodes. Miscellaneous: No inguinal hernias are seen. Bones: No aggressive osseous abnormality. Avascular necrosis of the bilateral femoral heads. IMPRESSION: 1. No traumatic findings of the abdomen or pelvis. 2. Calcified pleural plaques, correlate for asbestos exposure. 3. Severe hepatic steatosis. 4. Stable appearance of pancreatic head cystic changes. 5. Diverticulosis without evidence of acute diverticulitis. 6. Bilateral femoral head avascular necrosis Dictated by: Jered Freeman M.D. on 02/06/2025 at 10:56 Approved by: Jered Freeman M.D. on 02/06/2025 at 11:05
[2025-02-06] MEDS: LIDOCAINE 5% PATCH 1 EACH TOP (13:30)
[2025-02-06] MEDS: ONDANSETRON 4 MG ODT PO (13:31)
== END 2025-02-06 13:47 | disposition home or self-care (01) ==
PROVIDERS: Emergency Provider Emergency Medicine; PCP Family Medicine
DX: M54.9 Dorsalgia, unspecified (principal); R11.0 Nausea
CPT/HCPCS: 36415; 71260; 74177; 80053; 83690; 85025; 93005; 96374; 99284; J3360; Q9967

== ENCOUNTER 2025-02-09 11:35 | Inpatient (IN) | payer OTHER, SELFPAY ==
[2024-12-21 14:26] VITALS: PULSE 140; RESP 16; O2SAT 99; BMI 22.4
[2025-02-09] VITALS (23 sets, daily range): BP systolic 101–149; BP diastolic 59–88; PULSE 69–121; RESP 16–52; TEMP 35.7–37.4; O2SAT 92–99; BMI 20.2
[2025-02-09 12:13] LABS: Add Manual Diff / Slide Review NO; Hematocrit 32.3 % (41-53); Hemoglobin 11.3 g/dL (13.5-17.5); Lymphocytes Absolute Auto 800 /uL (1100-4500); Mean Corpuscular HGB Conc 34.9 % (30-36); Mean Corpuscular Hemoglobin 35.3 PG (26-34); Mean Corpuscular Volume 101.3 fL (80-100); Platelet Count 155 X10^3/uL (150-400)
[2025-02-09 12:25] LABS: Alanine Aminotransferase 77 IU/L (<50); Albumin 4.2 g/dL (3.5-5.0); Albumin Globulin Ratio 1.3 (1.0-2.8); Alkaline Phosphatase 85 U/L (38-126); Blood Urea Nitrogen 16 mg/dL (9-20); Calcium 11.8 mg/dL (8.4-10.2); Carbon Dioxide 30 mmol/L (22-32); Chloride 89 mmol/L (98-107); Estimated Glomerular Filt Rate > 60 mL/min (>60); Ethanol (ETOH) < 10 mg/dL (<10); Globulin 3.3 g/dL (1.7-4.1); Glucose 120 mg/dL (70-99); HEMOLYSIS < 15 (0-50); Potassium 4.2 mmol/L (3.4-5.1); Salicylate < 1.0 mg/dL (<20); Sodium 128 mmol/L (137-145); Total Protein 7.5 g/dL (6.3-8.2)
[2025-02-09 12:38] LABS: Culture Indicated Urine Cult Not Indicated; Ictotest Urine Negative (Negative)
--- NOTE | 2025-02-09 12:40 | EKG_ITS ---
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
--- NOTE | 2025-02-09 12:40 | DI.RAD.S_ITS ---
PROCEDURE: XR CHEST 1V INDICATIONS: chest pain TECHNIQUE: One view of the chest was acquired. COMPARISON: [facility], CR, XR CHEST 1V, 11/19/2024, 15:50. FINDINGS: Surgical changes and devices: None. Lungs and pleura: Lungs are clear. No pleural effusions or pneumothorax. Mediastinum: Mediastinal contours appear normal. Heart size is normal. Bones and chest wall: No suspicious bony lesions. Overlying soft tissues appear unremarkable. IMPRESSION: No acute cardiopulmonary pathology. Dictated by: Marcel Beyer M.D. on 02/09/2025 at 13:10 Approved by: Marcel Beyer M.D. on 02/09/2025 at 13:10
--- NOTE | 2025-02-09 12:40 | ED.ALCOHOL ---
HPI - Alcohol General Chief Complaint: Toxicology Problem Stated Complaint: alcohol withdrawals Time Seen by Provider: 02/09/25 11:51 Source: patient Mode of arrival: Family Vehicle History of Present Illness HPI narrative: [age]-year-old male history of alcohol use disorder, hypertension, dyslipidemia, asthma, prior GI bleed, presents today with alcohol withdrawal last drink last evening a tall boy can not for which he normally drinks 3 tall boys a day. Patient reports having visual hallucination and insomnia fidgety jittery unable to relax. He denies chest pain shortness breath cough nausea vomiting but did have constipation for which he did take MiraLax and now is able to have bowel movement. Other than what is stated 14 point review of system is negative. Related Data Home Medications ?Medication ?Instructions ?Recorded ?Confirmed ascorbic acid (vitamin C) 250 mg 250 mg PO DAILY 04/18/23 01/08/25 tablet magnesium 250 mg tablet 250 mg PO DAILY 05/04/24 01/08/25 Previous Rx's ?Medication ?Instructions ?Recorded apixaban 5 mg tablet 5 mg PO BID #180 tabs 11/22/24 ondansetron 4 mg disintegrating 4 mg PO Q8H PRN nausea and 12/19/24 tablet vomiting #30 tabs ondansetron HCl 4 mg tablet 4 mg PO Q8H PRN nausea and 12/19/24 vomiting #30 tabs atorvastatin 40 mg tablet 40 mg PO BEDTIME #90 tabs 12/24/24 famotidine 20 mg tablet 20 mg PO BEDTIME #90 tabs 12/24/24 ipratropium 0.5 mg-albuterol 3 mg 3 ml inhalation Q6-8H PRN 12/24/24 (2.5 mg base)/3 mL nebulization shortness of breath or wheezing soln #180 mL naltrexone 50 mg tablet 50 mg PO DAILY #30 tabs 12/24/24 nortriptyline 25 mg capsule 25 mg PO BEDTIME #90 caps 12/24/24 tamsulosin 0.4 mg capsule 0.4 mg PO DAILY #90 caps 12/24/24 tiotropium 2.5 mcg-olodaterol 2.5 2 puff inhalation QPM #4 grams 12/24/24 mcg/actuation mist for inhalation lisinopril 30 mg tablet 20 mg (0.6667 x 30 mg) PO DAILY 01/08/25 #90 tabs lidocaine 5 % topical patch 1 patch topical DAILY #30 ea 02/06/25 (Lidocan III) Allergies Allergy/AdvReac Type Severity Reaction Status Date / Time fluconazole Allergy Severe SWEATING, Verified 02/06/25 09:28 SOB, NAUSEA diclofenac (DICLOFENAC) Allergy Intermediate RASH ON Verified 02/06/25 09:28 FACE; LIGHTHEADEDNESS Review of Systems Review of Systems ROS Unobtainable: All systems reviewed & are unremarkable except as noted in HPI and below Patient History Medical History Pancreatitis Alcohol withdrawal delirium Alcoholism in remission Acute upper GI bleed Mixed hyperlipidemia History of kidney disease as a child (10/09/16) 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) Essential hypertension (10/09/16) Surgical History Hx of appendectomy (1977) Hx of hernia repair (1999) History of nephrectomy (1977) History of unilateral nephrectomy (10/09/16) Family History Father Congestive heart failure Diabetes mellitus COPD (chronic obstructive pulmonary disease) Mother Hypertension Diabetes mellitus Cancer Other Alcoholism Social History marital status: household members: spouse and family occupational status: previously employed leisure activities: exercise Tobacco: How many years used: 50 alcohol intake: current substance use type: marijuana caffeine: Yes Type(s) of exercise: walking Smoking Status: Current some day smoker tobacco type: cigarettes alcohol intake frequency: 3 or more drinks per day Alcohol type: beer Exam Narrative Exam Narrative: GENERAL: [64] year old patient appears stated age. Well-developed patient, in mild distress. HEAD: Atraumatic. Normocephalic. EYES: Pupils equal round and reactive. Extraocular motions intact. No scleral icterus. No injection or drainage. ENT: Nose without bleeding, purulent drainage. Throat without erythema, tonsillar hypertrophy or exudate. Airway patent. NECK: Trachea midline. Non tender CARDIOVASCULAR: Tachycardic but Regular rate and rhythm without murmurs, gallops, or rubs. RESPIRATORY: Clear to auscultation. Breath sounds equal bilaterally. No wheezes, rales, or rhonchi. GASTROINTESTINAL: Abdomen soft, non-tender, nondistended. EXTREMITIES: No edema or joint tenderness. BACK: Nontender without deformity or crepitance. No flank tenderness. NEURO: AOx3. SKIN: No rash or erythema of visible areas Initial Vital Signs Initial Vital Signs: Vital Signs Temperature 99.3 F 02/09/25 11:45 Pulse Rate 121 H 02/09/25 11:45 Respiratory Rate 16 02/09/25 11:45 Blood Pressure 103/63 02/09/25 11:45 Pulse Oximetry 98 02/09/25 11:45 Oxygen Delivery Method Room Air 02/09/25 11:45 Course Orders Ordered: ED Orders 02/09/25 12:00 Consult to DEVELOPMENT REPRESENTATIVE - Astronaut Mission Specialist Routine 02/09/25 12:07 Complete Blood Count AUTO DIFF Stat Comprehensive Metabolic Panel Stat Ethanol (ETOH) Stat Ictotest Urine Stat Salicylate Stat Urine Drug Screen, Rapid Stat Urine Microscopic Stat 02/09/25 12:39 MAG [Magnesium] Stat 02/09/25 12:40 XR chest 1V Stat Complete Blood Count AUTO DIFF Stat Comprehensive Metabolic Panel Stat Lipase Stat Troponin & CK Cardiac Panel Stat EKG-12 Lead Stat Vital Signs Vital signs: Vital Signs - 8 hr 02/09/25 11:45 Temperature 99.3 F Pulse Rate 121 H Respiratory Rate 16 Blood Pressure 103/63 Pulse Oximetry 98 Oxygen Delivery Method Room Air MDM - Alcohol Lab Data 02/09/25 12:07 02/09/25 12:07 Labs: Lab Results 02/09/25 Range/Units 12:07 WBC 9.8 (4.5-11.0) X10^3/uL RBC 3.19 L (4.5-5.9) X10^6/uL Hgb 11.3 L (13.5-17.5) g/dL Hct 32.3 L (41-53) % MCV 101.3 H (80-100) fL MCH 35.3 H (26-34) PG MCHC 34.9 (30-36) % RDW 15.5 H (11.6-14.8) % Plt Count 155 (150-400) X10^3/uL Neut % (Auto) 80.9 H (50-75) % Lymph % (Auto) 7.8 L (25-40) % [place] % (Auto) 10.9 (3-14) % Eos % (Auto) 0.1 L (2-4) % Baso % (Auto) 0.3 (0-2) % Neut # (Auto) 8000 H (5421-6444) /uL Lymph # (Auto) 800 L (1769-6286) /uL [place] # (Auto) 1100 H (0-900) /uL Eos # (Auto) 0 (0-450) /uL Baso # (Auto) 0 (0-100) /uL Sodium 128 L D (137-145) mmol/L Potassium 4.2 (3.4-5.1) mmol/L Chloride 89 L (98-107) mmol/L Carbon Dioxide 30 (22-32) mmol/L BUN 16 (9-20) mg/dL Creatinine 1.29 H (0.66-1.25) mg/dL Estimated GFR > 60 (>60) mL/min BUN/Creatinine Ratio 12.4 (6-22) Glucose 120 H (70-99) mg/dL Calcium 11.8 H (8.4-10.2) mg/dL Total Bilirubin 1.0 (0.2-1.3) mg/dL AST 102 H (17-59) IU/L ALT 77 H (<50) IU/L Alkaline Phosphatase 85 (38-126) U/L Total Protein 7.5 (6.3-8.2) g/dL Albumin 4.2 (3.5-5.0) g/dL Globulin 3.3 (1.7-4.1) g/dL Albumin/Globulin Ratio 1.3 (1.0-2.8) Ur Bilirubin Confirm Negative (Negative) Urine RBC 1-5/hpf D (0-5/HPF) Urine WBC 5-10/hpf H (0-5/HPF) Ur Squamous Epith Cells 1-5 /hpf (0-5/HPF) Urine Bacteria Few (2-10) H (None) Ur Culture Indicated? Cult not indicated Vol Urine Centrifuged 10ml (spun) Salicylates < 1.0 (<20) mg/dL Ethyl Alcohol < 10 (<10) mg/dL Urine Dip Bedside Urine Glucose Negative Bedside Urine Bilirubin + 1 Bedside Urine Ketone +/- 5 Urine Specific [place] 1.010 Bedside Urine Occult Blood - Negative Bedside Urine pH 6.0 Bedside Urine Protein +/- 15 Bedside Urine Urobilinogen - Negative Bedside Urine Nitrite - Negative Bedside Urine Leukocytes ++ 125 Esterase MDM Narrative Medical decision making narrative: All lab work, vital signs, nurse triage note, medication list, previous ER visits, and all imaging studies reviewed. Hemoglobin 11.3, sodium 128 chloride 89 potassium 4.2 creatinine 1.29 glucose 120 magnesium 1.1 AST 102 ALT 77 CK 3 7 positive oxycodone TCA marijuana. Patient given L LR, magnesium rider, phenobarbital 260 and now 130 and Ativan 2 mg. Patient will be admitted to for etoh w/d. Discharge Plan Departure Patient Disposition: Admitted as Observation Clinical Impression: Alcohol withdrawal Qualifiers: Complication of substance-induced condition: with perceptual disturbance Qualified Code(s): F10.932 - Alcohol use, unspecified with withdrawal with perceptual disturbance Admit Date/Time: 02/09/25 16:08 Admit Provider: Miguel Ángel Marroquin
[2025-02-09] MEDS: LACTATED RINGERS 1,000 ML 1000 ML IV (12:53)
[2025-02-09 13:16] LABS: Creatine Kinase 370 U/L (55-170); Lipase 111 U/L (23-300)
[2025-02-09 13:17] LABS: Magnesium 1.1 mg/dL (1.6-2.3)
[2025-02-09 13:29] LABS: Troponin I < 0.012 ng/mL (0.01-0.034)
[2025-02-09 14:40] LABS: Ur Specific Gravity Normal (Normal); Urine Tetrahydrocannabinol Positive (Negative); Urine Tricyclic Antidepressant Positive (Negative)
[2025-02-09 14:41] LABS: UR Morphine/Opiate cutoff 300 Negative (Negative); Urine MDMA Negative (Negative); Urine Methamphetamines Negative (Negative)
--- NOTE | 2025-02-09 16:10 | PC.NURSE ---
1545 Patietn having severe continuous hallucinations, attempting to crawl through side rails of bed. Daughter and at bedside as well as FILE CONVERSION OPERATOR Ekaterina. Dr. Pepe aware and verbal order given for 2mg IV ativan.
--- NOTE | 2025-02-09 16:18 | CM.SWNOTE ---
ED CONCRETE MIXER TRUCK DRIVER Assessment Note: CONCRETE MIXER TRUCK DRIVER - Laundry Laborer Assessment CONCRETE MIXER TRUCK DRIVER/Laundry Laborer Assessment Time Spent with Patient Start date 02/09/25 Visit Start Time 15:45 End date 02/09/25 Visit End Time 16:00 Total time Care 15 minutes Management spent on patient visit-in minutes Substance Abuse Screening Include Onset, Duration, Intensity Presenting Problem Patient presented to the ED for ETOH withdrawal. Patient was seen in the ED on Saturday, 02/07 for similar symptoms and was discharged home to continue detox. Precipitating Event( Patient's last drink was on 02/08 and it was about 12oz s) of beer. Per pt family, pt has been hallucinating and experiencing other withdrawal symptoms in the last two days. Patient has a hx of ETOH use. Patient Strengths Patient is supported by his family; (Joslyn) and daughter (María) have been at bedside since pt arrival. Current Behavioral None reported. Health Provider(s) Include Facility, Provider, Ph. # Family Hx of None reported. Behavioral Abuse Rehab Facilities? (( [facility] in 2023 for approximately 15 days - did Date(s), Location(s) not finish treatment. ) History of Last detox was in 2023 at [facility]. Withdrawal? Seizures No history of seizures. Patient presents with nausea, ? shakiness, visual and auditory hallucinations. Patient is witnessed responding to external stimuli. Longest Period of Longest period is 2 years approximately 11 years ago. Sobriety Psychosocial Patient is a 64yo male, resident of [place] with his information & spouse, father in law, son and his son's family. Support Systems Patient's daughter lives two houses down from patient. School/Work Patient is retired. Legal Concerns Legal Matters - None reported. Outstanding Issues Mental Status Orientation (Person/ AOx1 Place/Time) Affect (Congruent Labile, full range, congruent with mood with Mood?) Thought Content - Responding to internal stimuli, having conversations Specify/Describe with people in his past who he is estranged from, per Obsessions, family report. Patient is also witnessed trying to run Delusions, away from a big white bus in his ED room, nearly Hallucinations getting out of the stretcher because he is trying to get away. Patient family states he has a history of hallucinations during withdrawal but not to the level that patient is presenting with today. Thought Processes ( Incoherent, tangential Logical-Coherent- Goal Directed- Detailed-Tangential- Circumstantial- Logical-Disorganized -Thought Blocking) Speech (Normal-Slow- Slurred Xzybsbv-Okcvj-Bdfd- Loud-Pressured) Motor (Normal- Excessive Wlohypxoe-Wene-Hvkkv ) Insight (Good-Fair- Poor/limited Poor/Limited) Judgement (Good-Fair Poor/limited -Poor/Limited) Impulse Control ( Impaired Adequate-Impaired) Memory (Immediate- Impaired Recent-Remote, Impaired-Intact) Concentration ( Impaired Intact-Impaired) Attention (Intact- Impaired Impaired) Behavior ( Inappropriate Appropriate- Inappropriate) Risk Assessment Suicidal Ideation ( No: Not able to formally assess due to cognition. Plan) Homicidal Ideation ( No: Not able to formally assess due to cognition. Plan) Comment Patient family states he has not made statements of suicidality but has been statements of hopelessness, I wish I could go home and be with my mom (who has passed), I'm done. Intervention Intervention Reviewed chart and discussed with ED Provider pt's medical status and discharge needs. ED CONCRETE MIXER TRUCK DRIVER meets with patient and family. Patient is witnessed to be actively hallucinating and required Ativan for agitation. Patient family gave pt history of recent days, patient is actively hallucinating while attempting to detox. At this time, it is the opinion of this CONCRETE MIXER TRUCK DRIVER that patient would benefit from ETOH detox and closer observation via Acute Care admission. CONCRETE MIXER TRUCK DRIVER informs ED provider, Dr. Pepe, who indicates agreement. CONCRETE MIXER TRUCK DRIVER informs JACQUE Joel. Plan RA Plan Patient is not medically cleared for detox facility, will require acute care admission. Ekaterina Allen [employer]
--- NOTE | 2025-02-09 16:26 | CM.DANOTE ---
ED TECHNICAL SERVICES CONSULTANT DCP Assessment Note (See TECHNICAL SERVICES CONSULTANT Assessment for more information): Pt is a 64yo male, resident of [place], is admitted for ETOH withdrawal, active hallucination, and UTI. Pt lives in a house with his life partner, Joslyn, and their extended family. Pt's Primary Care Provider is Dr. Miguel Ángel Bruce and insurance is [employer] and Medicaid. Reviewed chart and discussed with multidisciplinary team pt's medical status and initial discharge needs. ED TECHNICAL SERVICES CONSULTANT met w/patient at bedside; introduced self and role. Present in the room are pt family: life partner (Joslyn) and daughter (María). Patient was witnessed actively hallucinating (trying to get away from white bus coming towards him) and responding to internal stimuli. Patient family reports pt has been attempting to detox from ETOH since Saturday and this type of behavior has started last evening. Patient's last drink was 1.5 - 24oz. cans of beer on 02/08. Family reports pt typically drinks 4 - 24oz beer cans a day and vodka. Plan: Acute Care admission, anticipating dc home with JACKELIN IOP referral or residential rehab. CM team will follow closely for coordination of discharge plans. Ekaterina Allen [facility] Discharge Planning/Care Management Discharge Planning Assessment Assigned Discharge YENIFER Tobar Interior Design Principal DPOA/Assigned Pam Life Partner Designee Name Contact Information [phone] Advance Directives? No Advance Directives No on File History Provided By Patient,Medical Record Prior Living House Arrangements Household Members spouse,family Type of Drives own vehicle transporation used prior to admit Independent with ADL Yes 's Is patient alert and No oriented? Caregiver for No Another Patient/Family Drug/Alcohol Rehab Preference Discharge Plan Home Transportation likely Sig Other Arrangement Referrals Initiated Other Additional Comment ETOH resources? Rehab referral? Review Status In Process Please Provide Date 02/09/25 Initial DC Assessment Was Performed Next Review Type Continued Stay Review
[2025-02-09] MEDS: MAGNESIUM SULFATE 2 GM/50 ML PIGGYBACK IV (16:31)
--- NOTE | 2025-02-09 17:13 | PM.HP.IH.1 ---
History of Present Illness History of Present Illness Chief complaint: alcohol withdrawals Narrative: Patient is a 64-year-old male with a history of alcohol misuse disorder going through acute withdrawal history is obtained from patient's family as patient is unable to provide a concise history in addition to his alcohol use he has a history of pulmonary emboli in September on anticoagulation nicotine dependence COPD hypertension hyperlipidemia BPH. Patient seen and evaluated in the emergency department patient is restless and agitated. Patient is not able to provide a good history. On discussion with patient's daughter who provides the history states that he was in the emergency department a few days ago. During this evaluation he had complaints of abdominal pain and flank pain. In bruising on his skin. In the emergency department he had a CT scan laboratory testing and was discharged home with a lidocaine patch due to musculoskeletal pain. He was encouraged to quit drinking. At the time of that emergency room he had some mild withdrawal symptoms. Was discharged home. Patient comes back today because of family noticing that he has had increased difficulty with delirium seeing things that are not there. His drinking has worsened then he tried to stop. And were concerned and brought him in because of his delirium tremors and confusion. On recent review of his records. Of note his white blood cell count today is normal hemoglobin is 11.3 platelet count is 155. Sodium is 128. Creatinine is 1.29 glucose is 120 magnesium is low at 1.1 AST are 102 and 77 lipase is normal. CK total is mildly elevated at [address] scan of chest having him pelvis done on his previous emergency room visit 2 days ago shows no traumatic finding history of asbestos exposure severe hepatics steatosis stable appearance of pancreatic head cystic changes diverticulosis and femoral head avascular necrosis. 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) Essential hypertension (10/09/16) Surgical History Hx of appendectomy (1977) Hx of hernia repair (1999) History of nephrectomy (1977) History of unilateral nephrectomy (10/09/16) Family History Father Congestive heart failure Diabetes mellitus COPD (chronic obstructive pulmonary disease) Mother Hypertension Diabetes mellitus Cancer Other Alcoholism Social History marital status: household members: spouse and family occupational status: previously employed leisure activities: exercise Smoking Status: Current some day smoker Tobacco: How many years used: 50 alcohol intake: current substance use type: marijuana caffeine: Yes Type(s) of exercise: walking Meds Home Medications and Allergies Home Medications ?Medication ?Instructions ?Recorded ?Confirmed ?Type ascorbic acid (vitamin C) 250 mg 250 mg PO DAILY 04/18/23 01/08/25 History tablet magnesium 250 mg tablet 250 mg PO DAILY 05/04/24 01/08/25 History apixaban 5 mg tablet 5 mg PO BID #180 tabs 11/22/24 01/08/25 Rx ondansetron 4 mg disintegrating 4 mg PO Q8H PRN nausea and 12/19/24 01/08/25 Rx tablet vomiting #30 tabs ondansetron HCl 4 mg tablet 4 mg PO Q8H PRN nausea and 12/19/24 01/08/25 Rx vomiting #30 tabs atorvastatin 40 mg tablet 40 mg PO BEDTIME #90 tabs 12/24/24 01/08/25 Rx famotidine 20 mg tablet 20 mg PO BEDTIME #90 tabs 12/24/24 01/08/25 Rx ipratropium 0.5 mg-albuterol 3 mg 3 ml inhalation Q6-8H PRN 12/24/24 01/08/25 Rx (2.5 mg base)/3 mL nebulization shortness of breath or wheezing soln #180 mL naltrexone 50 mg tablet 50 mg PO DAILY #30 tabs 12/24/24 01/08/25 Rx nortriptyline 25 mg capsule 25 mg PO BEDTIME #90 caps 12/24/24 01/08/25 Rx tamsulosin 0.4 mg capsule 0.4 mg PO DAILY #90 caps 12/24/24 01/08/25 Rx tiotropium 2.5 mcg-olodaterol 2.5 2 puff inhalation QPM #4 grams 12/24/24 01/08/25 Rx mcg/actuation mist for inhalation lisinopril 30 mg tablet 20 mg (0.6667 x 30 mg) PO DAILY 01/08/25 01/08/25 Rx #90 tabs lidocaine 5 % topical patch 1 patch topical DAILY #30 ea 02/06/25 Rx (Lidocan III) Allergies Allergy/AdvReac Type Severity Reaction Status Date / Time fluconazole Allergy Severe SWEATING, Verified 02/06/25 09:28 SOB, NAUSEA diclofenac (DICLOFENAC) Allergy Intermediate RASH ON Verified 02/06/25 09:28 FACE; LIGHTHEADEDNESS Exam Vital Signs (past 8 hours): - 02/09/25 11:45 02/09/25 12:03 02/09/25 12:04 Temperature 99.3 F Pulse Rate 121 H 118 H Respiratory Rate 16 Blood Pressure 103/63 101/69 Pulse Oximetry 98 94 Oxygen Delivery Method Room Air 02/09/25 12:04 02/09/25 12:30 02/09/25 12:30 Temperature Pulse Rate 118 H 115 H Respiratory Rate 27 H 37 H Blood Pressure 101/67 Pulse Oximetry 99 97 Oxygen Delivery Method 02/09/25 13:00 02/09/25 13:00 02/09/25 13:30 Temperature Pulse Rate 105 H 106 H Respiratory Rate 27 H 28 H Blood Pressure 121/79 Pulse Oximetry 99 99 Oxygen Delivery Method 02/09/25 13:31 02/09/25 13:31 02/09/25 14:00 Temperature Pulse Rate 107 H Respiratory Rate 25 H Blood Pressure 127/78 120/73 Pulse Oximetry 99 Oxygen Delivery Method 02/09/25 14:00 02/09/25 14:30 02/09/25 14:31 Temperature Pulse Rate 107 H 109 H Respiratory Rate 32 H 43 H Blood Pressure 110/76 Pulse Oximetry 97 Oxygen Delivery Method 02/09/25 14:31 02/09/25 15:00 02/09/25 15:01 Temperature Pulse Rate 109 H 109 H Respiratory Rate 26 H 52 H Blood Pressure 118/69 Pulse Oximetry 98 98 Oxygen Delivery Method 02/09/25 15:01 02/09/25 15:30 02/09/25 15:30 Temperature Pulse Rate 110 H 106 H Respiratory Rate 34 H 35 H Blood Pressure 109/70 Pulse Oximetry 98 99 Oxygen Delivery Method 02/09/25 16:00 02/09/25 16:00 Temperature Pulse Rate 113 H Respiratory Rate 39 H Blood Pressure 111/68 Pulse Oximetry 97 Oxygen Delivery Method Oxygen Delivery Method Room Air Narrative Exam Narrative: Gen.: Patient is arousable agitated has some tremors HEENT: Pupils equal round and reactive or mucosa is moist neck is supple Cardio: S1-S2 regular rate and rhythm no murmurs appreciated. Respiratory: Normal respiratory effort lungs are clear Abdomen: Soft nontender no rebound or guarding no liver spleen enlargement no appreciable hernias Extremities: Full range of motion no edema Neurologic: Patient is confused Objective Labs 02/09/25 12:07 02/09/25 12:07 Labs: Laboratory Results - last 24 hr 02/09/25 02/09/25 12:07 14:16 WBC 9.8 RBC 3.19 L Hgb 11.3 L Hct 32.3 L MCV 101.3 H MCH 35.3 H MCHC 34.9 RDW 15.5 H Plt Count 155 Neut % (Auto) 80.9 H Lymph % (Auto) 7.8 L [place] % (Auto) 10.9 Eos % (Auto) 0.1 L Baso % (Auto) 0.3 Neut # (Auto) 8000 H Lymph # (Auto) 800 L [place] # (Auto) 1100 H Eos # (Auto) 0 Baso # (Auto) 0 Sodium 128 L D Potassium 4.2 Chloride 89 L Carbon Dioxide 30 BUN 16 Creatinine 1.29 H Estimated GFR > 60 BUN/Creatinine Ratio 12.4 Glucose 120 H Calcium 11.8 H Magnesium 1.1 L Total Bilirubin 1.0 AST 102 H ALT 77 H Alkaline Phosphatase 85 Total Creatine Kinase 370 H Troponin I < 0.012 Total Protein 7.5 Albumin 4.2 Globulin 3.3 Albumin/Globulin Ratio 1.3 Lipase 111 Ur Bilirubin Confirm Negative Urine RBC 1-5/hpf D Urine WBC 5-10/hpf H Ur Squamous Epith Cells 1-5 /hpf Urine Bacteria Few (2-10) H Ur Culture Indicated? Cult not indicated Vol Urine Centrifuged 10ml (spun) Salicylates < 1.0 U Opiates 300ng/mL cut Negative Ur Oxycodone Screen Positive H Urine Methadone Screen Negative Ur Barbiturates Screen Negative U Tricyclic Antidepress Positive H Ur Phencyclidine Scrn Negative Ur Amphetamines Screen Negative U Methamphetamines Scrn Negative Ur MDMA Scrn (Ecstasy) Negative U Benzodiazepines Scrn Negative Urine Cocaine Screen Negative U Marijuana (THC) Screen Positive H Urine pH Normal Urine Specific [place] Normal Ethyl Alcohol < 10 Ur Creatinine Normal Assessment & Plan Assessment and plan (1) Alcohol withdrawal: Qualifiers: Complication of substance-induced condition: with perceptual disturbance Qualified Code(s): F10.932 - Alcohol use, unspecified with withdrawal with perceptual disturbance Status: Acute Plan Moderate to severe acute alcohol withdrawal syndrome patient going through clear withdrawal. Patient will be admitted to the ICU. He was given Ativan and phenobarbital in the emergency department. Will continue Ativan phenobarbital and Precedex as needed. To help reduce symptoms of agitation. Patient will have appropriate monitoring cardiac vital signs per protocol. May also have evaluation by our tele basting cleaner. Make sure that we are following appropriate medical management for sedation of his severe alcohol withdrawal. We will replace electrolytes magnesium folic acid vitamin B12. Acute metabolic encephalopathy due to alcohol withdrawal. Patient is confused disoriented. Reviewed chart notes laboratory testing imaging studies. Provide appropriate sedation until withdrawal process is there. Moderate to severe malnutrition due to his alcoholism. Dietitian consultation. Multiple vitamin vitamin B12 folic acid replacement. Alcohol-induced hepatitis with liver inflammation elevation. Chronic liver changes. Pancreatic mass. Stable over time. Needs to be re-evaluated. Lipase is not elevated currently does not appear to have ongoing pancreatitis. Pulmonary emboli diagnosed in September of this year on chronic anticoagulation follow-up CT angiogram of chest shows resolution. Appears that he is still on anticoagulation at this time at least from family will continue with his Eliquis. Until we receive further indication of whether or not patient had stopped this medication after follow-up of the CT angiogram which showed resolution. Hypomagnesemia. Patient's magnesium is low we will replace. Hyponatremia. Patient's sodium is low. Will improve with hydration. Hypercalcemia. Will improve with hydration and follow Hypertension. Patient on lisinopril. Will continue with this. May consider beta-choco as well and or clonidine for withdrawal. BPH. Patient on Flomax continue with BPH. DVT prophylaxis. Patient on Eliquis this will be continued Code status full code Disposition plan anticipate hospital stay for a number of days Time-Based Coding :: [TOTAL MINUTES] spent with patient and on the chart (including review of chart, obtaining history, exam, reviewing outside data, placing orders, documenting exam and treatment plan, and counseling patient) on [DATE]. PROFEE Instructor Adjunct Surgical Technician Document charge(s): Yes Charge Codes Initial inpatient/observation care: [id number]
--- NOTE | 2025-02-09 18:34 | PM.EICU.INT ---
Teleintensivist Intervention Date/Time Was camera activated?: Yes Date Patient Seen: 02/09/25 Time Patient Seen: 18:35 Issue(s) Addressed Issue(s): Electrolytes, Fluid/Nutrition and Pain, Agitation, Sedation, Delirium Intervention(s) :: 64yo man with a history of alcohol abuse admitted with acute withdrawal. Family noticed that he was starting to hallucinate so he was brought to the ED. Started on Phenobarbital and Ativan in the ED. Due to persistent agitation he was admitted to the ICU for a precedex drip. Acute ETOH Withdrawal with agitation: Precedex gtt, phenobarbital, Ativan PRN. Replace electrolytes PRN Agree with the plan initiated by the admitting team. Tele ICU to remain available.
[2025-02-09] MEDS: SODIUM CHLORIDE 0.9% 1,000 ML 100 ML IV (18:52)
--- NOTE | 2025-02-09 18:56 | PC.NURSE ---
Admit Note Patient arrived to room 226 at 1750 from ER. Transferred via slider board to bed. Restless with transfer, picking at clothes, unable to redirect, not oriented. Settled after cleaning up incontinent void and changing into gown with CIWA 8 at that time. Desatting intermittently to the upper 70s before increasing back to the mid-90s. and daughter at bedside with pt's own CPAP, this placed by RT with SpO2 in the 95-96% range. SR in the 90s. Seizure pads in place. Bed alarm on for safety and call light is within reach. Clothing only other belongings with pt and in pt belonging bag.
[2025-02-09] MEDS: dexmedeTOMIDine in 0.9 % NaCL 400 MCG/100 ML PLAST..BAG IV (20:10)
[2025-02-09 20:24] LABS: MRSA (Nasal) PCR NOT DETECTED (Not Detect)
[2025-02-10] VITALS (38 sets, daily range): BP systolic 125–157; BP diastolic 71–94; PULSE 62–95; RESP 15–35; TEMP 35.6–36.7; O2SAT 89–100
[2025-02-10] MEDS: SODIUM CHLORIDE 0.9% 1,000 ML 100 ML IV ×3 (04:21→23:05)
--- NOTE | 2025-02-10 06:14 | PC.NURSE ---
Golf Sales Associate Summary-Patient has been mostly sedated with Precedex, currently at 0.3mcg/kg/hr and scheduled Phenobarbitol. Unable to take PO meds at this time. Has moments of intense confusion and agitation, IV Ativan given per [id number]-[id number]-xin Emar. SR, VSS, has own Cpap on. IVF NS @ 100ml/hr. Condom cath intact with small UOP. Seizure pads on rails.
[2025-02-10 07:32] LABS: Add Manual Diff / Slide Review NO; Hematocrit 30.2 % (41-53); Hemoglobin 10.4 g/dL (13.5-17.5); Lymphocytes Absolute Auto 1000 /uL (1100-4500); Mean Corpuscular HGB Conc 34.5 % (30-36); Mean Corpuscular Hemoglobin 35.4 PG (26-34); Mean Corpuscular Volume 102.8 fL (80-100); Platelet Count 140 X10^3/uL (150-400)
[2025-02-10 07:46] LABS: Alanine Aminotransferase 60 IU/L (<50); Albumin 3.4 g/dL (3.5-5.0); Albumin Globulin Ratio 1.1 (1.0-2.8); Alkaline Phosphatase 78 U/L (38-126); Blood Urea Nitrogen 9 mg/dL (9-20); Calcium 10.1 mg/dL (8.4-10.2); Carbon Dioxide 25 mmol/L (22-32); Chloride 101 mmol/L (98-107); Estimated Glomerular Filt Rate > 60 mL/min (>60); Globulin 3.0 g/dL (1.7-4.1); Glucose 97 mg/dL (70-99); HEMOLYSIS < 15 (0-50); Magnesium 1.3 mg/dL (1.6-2.3); Potassium 3.9 mmol/L (3.4-5.1); Sodium 131 mmol/L (137-145); Total Protein 6.4 g/dL (6.3-8.2)
--- NOTE | 2025-02-10 10:15 | DIET.CONS ---
Dietary Consultation Note Admission Date: 02/09/2025 16:08 Assessment: 64 y M admitted for alcohol withdrawal. Dietitian consulted for etoh withdraw. CIWA score 19 today with reports of agitation overnight in rounds. EMR reviewed. Per WIRELESS TEAM MEMBER note, family reports pt drinks 4- 24 oz beers and vodka daily, last drink was 02/08. Ht: 170.18 cm Wt: 58.559 kg BMI: 20.2 UBW: 60.328 kg on 12/24/24, 63.219 kg on 10/02/24 (-7% weight loss in 4 months, non-severe) Last BM: 02/09/25 (02/09/25 18:34) MNA: 6 Ar Score: 15 Labs: RBC 2.93 X10^6/uL (4.5-5.9) L 02/10/25 07:20 Hgb 10.4 g/dL (13.5-17.5) L 02/10/25 07:20 Hct 30.2 % (41-53) L 02/10/25 07:20 Creatinine 0.66 mg/dL (0.66-1.25) 02/10/25 07:20 Nutrition Diagnosis: Severe chronic protein calorie malnutrition r/t inadequate intake of protein and nutrient dense food due to excess EtOH intake aeb pt drinks 4- 24 oz beers and vodka daily, hx of alcohol use disorder Interventions: -Already getting multivitamin/folic acid/thiamine -Diet to be ordered when pt can tolerate per hospitalist EER: 1800 kcals (30 kcals/kg per BMI) 80 g protein (16% kcals vs 1.5 g/kg per PCM) Monitoring/Evaluations: f/u with pt as able Electronically Signed by: Guerda Ellis 02/10/25 10:15 Clinical Dietitian [address] [id number]
[2025-02-10] MEDS: THIAMINE 100 MG in SODIUM CHLORIDE 0.9% 100 ML 404 MG IV (11:20)
[2025-02-10] MEDS: MAGNESIUM SULFATE 4 GM/100 ML PIGGYBACK IV (11:20)
[2025-02-10] MEDS: dexmedeTOMIDine in 0.9 % NaCL 400 MCG/100 ML PLAST..BAG 7.32 MCG IV (11:57)
--- NOTE | 2025-02-10 13:01 | PM.PN.IH.1 ---
Subjective Subjective Date Patient Seen: 02/10/25 Time Patient Seen: 12:30 Interval history: Patient sedated with family at bedside. They report worsening agitation over weekend leading up to admission. Recent anniversaries of both of his parents deaths may have contributed to excessive drinking and then an over-correction in an effort to wean from alcohol to rapidly. Family has questions about transitioned to oral medications and if there will be any relapse of withdrawal symptoms once discharged from hospital. Exam Vital Signs (past 8 hours): - 02/10/25 07:17 02/10/25 07:30 02/10/25 08:00 Temperature 98.1 F Pulse Rate 84 95 H Respiratory Rate 19 23 Blood Pressure Pulse Oximetry Oxygen Delivery Method 02/10/25 08:00 02/10/25 08:00 02/10/25 08:03 Temperature Pulse Rate 64 62 Respiratory Rate 19 19 Blood Pressure 134/73 125/71 Pulse Oximetry 91 Oxygen Delivery Method 02/10/25 08:30 02/10/25 08:40 02/10/25 09:00 Temperature Pulse Rate 62 62 Respiratory Rate 19 19 Blood Pressure Pulse Oximetry 92 92 Oxygen Delivery Method CPAP 02/10/25 09:00 02/10/25 09:30 02/10/25 10:00 Temperature Pulse Rate 62 65 Respiratory Rate 19 18 Blood Pressure 125/71 Pulse Oximetry 94 93 Oxygen Delivery Method 02/10/25 10:00 02/10/25 10:30 02/10/25 11:00 Temperature Pulse Rate 75 Respiratory Rate 18 Blood Pressure 137/85 147/85 H Pulse Oximetry 95 Oxygen Delivery Method 02/10/25 11:00 02/10/25 11:30 02/10/25 12:00 Temperature Pulse Rate 68 71 Respiratory Rate 17 20 Blood Pressure 154/86 H Pulse Oximetry 89 L 89 L Oxygen Delivery Method 02/10/25 12:00 02/10/25 12:30 Temperature Pulse Rate 70 69 Respiratory Rate 20 17 Blood Pressure Pulse Oximetry 89 L 90 L Oxygen Delivery Method Oxygen Delivery Method CPAP Oxygen Flow Rate 0 Narrative Exam Narrative: HEENT: NC/AT, moist membranes CV: RRR, normal S1-S2, no m/g/r Resp: CTAB, wearing home CPAP Abd: Soft, NTND, +BS Ext: No edema Skin: No rash or lesions noted Neuro: Sedated Objective Labs 02/10/25 07:20 02/10/25 07:20 Labs: Laboratory Results - last 24 hr 02/09/25 02/09/25 02/09/25 12:07 14:16 18:13 WBC RBC Hgb Hct MCV MCH MCHC RDW Plt Count Neut % (Auto) Lymph % (Auto) [place] % (Auto) Eos % (Auto) Baso % (Auto) Neut # (Auto) Lymph # (Auto) [place] # (Auto) Eos # (Auto) Baso # (Auto) Sodium Potassium Chloride Carbon Dioxide BUN Creatinine Estimated GFR BUN/Creatinine Ratio Glucose Calcium Magnesium 1.1 L Total Bilirubin AST ALT Alkaline Phosphatase Total Creatine Kinase 370 H Troponin I < 0.012 Total Protein Albumin Globulin Albumin/Globulin Ratio Lipase 111 Nasal Screen MRSA (PCR) Not detected U Opiates 300ng/mL cut Negative Ur Oxycodone Screen Positive H Urine Methadone Screen Negative Ur Barbiturates Screen Negative U Tricyclic Antidepress Positive H Ur Phencyclidine Scrn Negative Ur Amphetamines Screen Negative U Methamphetamines Scrn Negative Ur MDMA Scrn (Ecstasy) Negative U Benzodiazepines Scrn Negative Urine Cocaine Screen Negative U Marijuana (THC) Screen Positive H Urine pH Normal Urine Specific [place] Normal Ur Creatinine Normal 02/10/25 07:20 WBC 7.3 RBC 2.93 L Hgb 10.4 L Hct 30.2 L MCV 102.8 H MCH 35.4 H MCHC 34.5 RDW 15.0 H Plt Count 140 L Neut % (Auto) 75.0 Lymph % (Auto) 13.[address] [place] % (Auto) 8.9 Eos % (Auto) 1.8 L Baso % (Auto) 0.4 Neut # (Auto) 5500 Lymph # (Auto) [address] [place] # (Auto) 700 Eos # (Auto) 100 Baso # (Auto) 0 Sodium 131 L Potassium 3.9 Chloride 101 Carbon Dioxide 25 BUN 9 Creatinine 0.66 Estimated GFR > 60 BUN/Creatinine Ratio 13.6 Glucose 97 Calcium 10.1 Magnesium 1.3 L Total Bilirubin 0.8 AST 86 H ALT 60 H Alkaline Phosphatase 78 Total Creatine Kinase Troponin I Total Protein 6.4 Albumin 3.4 L Globulin 3.0 Albumin/Globulin Ratio 1.1 Lipase Nasal Screen MRSA (PCR) U Opiates 300ng/mL cut Ur Oxycodone Screen Urine Methadone Screen Ur Barbiturates Screen U Tricyclic Antidepress Ur Phencyclidine Scrn Ur Amphetamines Screen U Methamphetamines Scrn Ur MDMA Scrn (Ecstasy) U Benzodiazepines Scrn Urine Cocaine Screen U Marijuana (THC) Screen Urine pH Urine Specific [place] Ur Creatinine [facility] Medical History (Updated 02/10/25 @ 18:25 by Miguel Ángel Bruce MD) Coffee ground emesis Pancreatitis Alcohol withdrawal delirium Alcoholism in remission Acute upper GI bleed Mixed hyperlipidemia History of kidney disease as a child (10/09/16) 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) Essential hypertension (10/09/16) Surgical History Hx of appendectomy (1977) Hx of hernia repair (1999) History of nephrectomy (1977) History of unilateral nephrectomy (10/09/16) Family History Father Congestive heart failure Diabetes mellitus COPD (chronic obstructive pulmonary disease) Mother Hypertension Diabetes mellitus Cancer Other Alcoholism Social History marital status: household members: spouse and family occupational status: previously employed leisure activities: exercise Smoking Status: Current some day smoker Tobacco: How many years used: 50 alcohol intake: current substance use type: marijuana caffeine: Yes Type(s) of exercise: walking Assessment & Plan Assessment and plan (1) Alcohol withdrawal: Qualifiers: Complication of substance-induced condition: with perceptual disturbance Qualified Code(s): F10.932 - Alcohol use, unspecified with withdrawal with perceptual disturbance Status: Acute (2) Acute metabolic encephalopathy: Status: Acute (3) Malnutrition: Qualifiers: Malnutrition type: unspecified type Qualified Code(s): E46 - Unspecified protein-calorie malnutrition Status: Acute (4) Alcoholic hepatitis: Qualifiers: Ascites presence: without ascites Qualified Code(s): K70.10 - Alcoholic hepatitis without ascites Status: Acute (5) Pancreatic mass: Status: Acute (6) Pulmonary embolism: Qualifiers: Pulmonary embolism type: unspecified Chronicity: acute Acute cor pulmonale presence: without acute cor pulmonale Qualified Code(s): I26.99 - Other pulmonary embolism without acute cor pulmonale Status: Acute (7) Hypomagnesemia: Status: Acute (8) Hyponatremia: Status: Acute (9) Hypercalcemia: Status: Acute (10) Essential hypertension: Status: Chronic (11) BPH loc w urin obs/LUTS: Status: Acute Assessment & Plan narrative: 1. Moderate to severe acute alcohol withdrawal syndrome Patient going through clear withdrawal. - precedex gtt - phenobarbital q8h - ativan prn per [facility] protocol - librium taper once awake, able to take PO meds - eICU consulting, appreciate their assistance with sedation/medical management 2. Acute metabolic encephalopathy due to alcohol withdrawal Confused disoriented on admission - precedex gtt, wean as tolerated - reorient once awake/alert 3. Moderate to severe malnutrition due to alcoholism - dietitian consultation - B12 folic acid replacement 4. Alcohol-induced hepatitis with liver inflammation elevation Chronic liver changes - trend CMP 5. Pancreatic mass Stable over time. Lipase is not elevated currently does not appear to have ongoing pancreatitis. - f/u outpatient GI referral 6. Pulmonary emboli Diagnosed in September of this year, on Eliquis BID. Follow-up CTA 11/19/24 shows resolution. Appears that he is still on anticoagulation at this time per family's report. - consider transition to lovenox 7. Hypomagnesemia - replace prn 8. Hyponatremia - IV NS @100 cc/hr 9. Hypercalcemia - trend 10. Hypertension - home lisinopril - consider beta-choco as well and or clonidine for withdrawal 11. BPH - home flomax Diet: NPO GI ppx: PPI DVT ppx: Eliquis Code: FULL PCP: Teo MDM: Spouse Time-Based Coding :: 40 minutes spent with patient and on the chart (including review of chart, obtaining history, exam, reviewing outside data, placing orders, documenting exam and treatment plan, and counseling patient) on 02/10/2025. Quality VTE Deep Vein Thrombosis/Pulmonary Embolism Present on Admission: No [facility] PROFEE Active Directory Architect Document charge(s): Yes Charge Codes Critical Care: 99027
--- NOTE | 2025-02-10 18:09 | PC.NURSE ---
Day Shift Note Patient on precedex gtt throughout shift, receiving scheduled phenobarbital IV and Ativan IV as needed for CIWA. CIWA ranging from 6-16 this shift. Pt intermittently restless, pulling at CPAP, garbled and mumbled speech, unable to make needs known, follows commands on occasion. Repositions self as a result of restlessness, assisting to reposition every 2 hours when calm. Oriented to self only. Own CPAP in place through shift, bleed in of 2L initially required but pt assisted in oral suctioning of secretions and is currently on RA at 97-98%. Coarse upper airway, decreased but clear posterior breath sounds. SR in the 60-70s. Condom catheter in place and draining clear yellow urine. Seizure pads in place and bed alarm on for safety. Call light within reach. No PO meds given this shift as pt is unable to consistently follow directions and is unable to safely swallow due to sedation, Dr. Bruce is aware. Dr. Bruce rounded at bedside this afternoon and plan of care reviewed, pt's family also were at bedside and all their questions were answered.
[2025-02-10] MEDS: dexmedeTOMIDine in 0.9 % NaCL 400 MCG/100 ML PLAST..BAG 10.248 MCG IV (22:25)
[2025-02-11] VITALS (51 sets, daily range): BP systolic 101–160; BP diastolic 63–103; PULSE 70–117; RESP 14–32; TEMP 35.5–36.8; O2SAT 94–99
[2025-02-11] MEDS: ALBUTEROL/IPRATROPIUM 3 ML AMPUL INH (00:02)
[2025-02-11 05:16] LABS: Add Manual Diff / Slide Review NO; Hematocrit 31.6 % (41-53); Hemoglobin 11.0 g/dL (13.5-17.5); Lymphocytes Absolute Auto 800 /uL (1100-4500); Mean Corpuscular HGB Conc 34.7 % (30-36); Mean Corpuscular Hemoglobin 35.8 PG (26-34); Mean Corpuscular Volume 103.0 fL (80-100); Platelet Count 161 X10^3/uL (150-400)
[2025-02-11 05:25] LABS: Blood Urea Nitrogen 14 mg/dL (9-20); Calcium 9.2 mg/dL (8.4-10.2); Carbon Dioxide 20 mmol/L (22-32); Chloride 106 mmol/L (98-107); Estimated Glomerular Filt Rate > 60 mL/min (>60); Glucose 70 mg/dL (70-99); HEMOLYSIS < 15 (0-50); Potassium 3.8 mmol/L (3.4-5.1); Sodium 136 mmol/L (137-145)
--- NOTE | 2025-02-11 05:39 | RT ---
patient wore Home CPAP until apprx 0230. Took off and Spo2 95% on room air
[2025-02-11 05:58] LABS: Magnesium 1.7 mg/dL (1.6-2.3)
[2025-02-11] MEDS: dexmedeTOMIDine in 0.9 % NaCL 400 MCG/100 ML PLAST..BAG 10.248 MCG IV ×2 (07:06→16:36)
[2025-02-11] MEDS: THIAMINE 100 MG in SODIUM CHLORIDE 0.9% 100 ML 404 MG IV (08:42)
[2025-02-11] MEDS: SODIUM CHLORIDE 0.9% 1,000 ML 100 ML IV (08:43)
[2025-02-11] MEDS: ACETAMINOPHEN 325 MG TABLET 650 MG PO (10:09)
[2025-02-11] MEDS: MULTIVITAMIN 1 TABLET 1 TAB PO (12:52)
[2025-02-11] MEDS: FOLIC ACID 1 MG TABLET PO (12:52)
[2025-02-11] MEDS: APIXABAN 5 MG TABLET PO ×2 (12:53→21:56)
--- NOTE | 2025-02-11 13:13 | PM.PN.IH.1 ---
Subjective Subjective Date Patient Seen: 02/11/25 Time Patient Seen: 13:13 Interval history: Patient is sleeping comfortably in bed. No family currently at bedside. Nurse reports was alert and appropriately interactive earlier this morning, ate some applesauce and took p.o. Tylenol. Precedex currently at 0.7 mg/kg/hr, has not required scheduled phenobarbital thus far. Exam Vital Signs (past 8 hours): - 02/11/25 05:30 02/11/25 06:00 02/11/25 06:00 Pulse Rate 77 82 Respiratory Rate 18 18 Blood Pressure 146/103 H Pulse Oximetry 94 97 Oxygen Delivery Method 02/11/25 06:01 02/11/25 06:01 02/11/25 06:30 Pulse Rate 84 86 Respiratory Rate 18 20 Blood Pressure 147/101 H Pulse Oximetry 96 98 Oxygen Delivery Method 02/11/25 07:00 02/11/25 07:00 02/11/25 07:30 Pulse Rate 89 87 Respiratory Rate 19 19 Blood Pressure 143/94 H Pulse Oximetry 94 96 Oxygen Delivery Method 02/11/25 08:00 02/11/25 08:00 02/11/25 08:00 Pulse Rate 84 Respiratory Rate 19 Blood Pressure 140/89 Pulse Oximetry 96 Oxygen Delivery Method Room Air CPAP 02/11/25 08:30 02/11/25 09:00 02/11/25 09:00 Pulse Rate 80 91 H Respiratory Rate 22 22 Blood Pressure 146/99 H Pulse Oximetry 96 94 Oxygen Delivery Method 02/11/25 09:30 02/11/25 10:00 02/11/25 10:30 Pulse Rate 104 H 115 H 99 H Respiratory Rate 29 H 27 H 20 Blood Pressure Pulse Oximetry 96 94 94 Oxygen Delivery Method 02/11/25 12:00 Pulse Rate Respiratory Rate Blood Pressure Pulse Oximetry Oxygen Delivery Method Room Air CPAP Fraction of Inspired Oxygen 21 SaO2/FiO2 Ratio 438 Oxygen Delivery Method Room Air,CPAP Oxygen Flow Rate 2 Narrative Exam Narrative: HEENT: NC/AT, moist membranes CV: RRR, normal S1-S2, no m/g/r Resp: CTAB, cwob Abd: Soft, NTND, +BS Ext: No edema Skin: No rash or lesions noted Neuro: Sedated Objective Labs 02/11/25 04:43 02/11/25 04:43 Labs: Laboratory Results - last 24 hr 02/11/25 04:43 WBC 6.6 RBC 3.07 L Hgb 11.0 L Hct 31.6 L MCV 103.0 H MCH 35.8 H MCHC 34.7 RDW 15.3 H Plt Count 161 Neut % (Auto) 75.8 H Lymph % (Auto) 11.6 L [place] % (Auto) 9.8 Eos % (Auto) 2.5 Baso % (Auto) 0.3 Neut # (Auto) 5000 Lymph # (Auto) 800 L [place] # (Auto) 600 Eos # (Auto) 200 Baso # (Auto) 0 Sodium 136 L Potassium 3.8 Chloride 106 Carbon Dioxide 20 L BUN 14 Creatinine 0.68 Estimated GFR > 60 BUN/Creatinine Ratio 20.6 Glucose 70 Calcium 9.2 Magnesium 1.7 [facility] Medical History (Updated 02/10/25 @ 18:25 by Miguel Ángel Bruce MD) Coffee ground emesis Pancreatitis Alcohol withdrawal delirium Alcoholism in remission Acute upper GI bleed Mixed hyperlipidemia History of kidney disease as a child (10/09/16) 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) Essential hypertension (10/09/16) Surgical History Hx of appendectomy (1977) Hx of hernia repair (1999) History of nephrectomy (1977) History of unilateral nephrectomy (10/09/16) Family History Father Congestive heart failure Diabetes mellitus COPD (chronic obstructive pulmonary disease) Mother Hypertension Diabetes mellitus Cancer Other Alcoholism Social History marital status: household members: spouse and family occupational status: previously employed leisure activities: exercise Smoking Status: Current some day smoker Tobacco: How many years used: 50 alcohol intake: current substance use type: marijuana caffeine: Yes Type(s) of exercise: walking Assessment & Plan Assessment and plan (1) Alcohol withdrawal: Qualifiers: Complication of substance-induced condition: with perceptual disturbance Qualified Code(s): F10.932 - Alcohol use, unspecified with withdrawal with perceptual disturbance Status: Acute (2) Acute metabolic encephalopathy: Status: Acute (3) Malnutrition: Qualifiers: Malnutrition type: unspecified type Qualified Code(s): E46 - Unspecified protein-calorie malnutrition Status: Acute (4) Alcoholic hepatitis: Qualifiers: Ascites presence: without ascites Qualified Code(s): K70.10 - Alcoholic hepatitis without ascites Status: Acute (5) Pancreatic mass: Status: Acute (6) Pulmonary embolism: Qualifiers: Pulmonary embolism type: unspecified Chronicity: acute Acute cor pulmonale presence: without acute cor pulmonale Qualified Code(s): I26.99 - Other pulmonary embolism without acute cor pulmonale Status: Acute (7) Hypomagnesemia: Status: Acute (8) Hyponatremia: Status: Acute (9) Hypercalcemia: Status: Acute (10) Essential hypertension: Status: Chronic (11) BPH loc w urin obs/LUTS: Status: Acute Assessment & Plan narrative: 64-year-old male with hypertension, hyperlipidemia, alcohol use disorder, COPD/asthma, BPH w/obs LUTS admitted for acute alcohol withdrawal. 1. Moderate to severe acute alcohol withdrawal syndrome Last drink 02/07, now appears to be most symptomatic portion of withdrawal process. Family indicated yesterday that patient is ready/willing to try rehab again. - precedex gtt, wean as tolerated - hold phenobarbital given improved symptomatology - ativan prn per CIWA protocol - librium taper once awake, able to take PO meds - eICU consulting, appreciate their assistance with sedation/medical management - CM consulted wrt entering rehab on discharge, will begin investigating options 2. Acute metabolic encephalopathy due to alcohol withdrawal Confused and disoriented on admission. Improved this AM with appropriate interaction/conversation/orientation per nursing report. - precedex gtt, wean as tolerated - reorient once awake/alert 3. Moderate to severe malnutrition due to alcoholism - dietitian consultation - B12, folic acid replacement 4. Alcohol-induced hepatitis with liver inflammation elevation Chronic liver changes - trend 5. Pancreatic mass Stable over time. Lipase is not elevated currently does not appear to have ongoing pancreatitis. - f/u outpatient GI referral 6. Pulmonary emboli Diagnosed in September of this year, on Eliquis BID. Follow-up CTA 11/19/24 shows resolution. Appears that he is still on anticoagulation at this time per family's report. - consider transition to lovenox 7. Hypomagnesemia - replace prn 8. Hyponatremia - IV NS @100 cc/hr 9. Hypercalcemia - trend 10. Hypertension - home lisinopril - consider beta-choco as well and or clonidine for withdrawal 11. BPH - home flomax Diet: NPO GI ppx: PPI DVT ppx: Eliquis Code: FULL PCP: Teo MDM: Spouse Time-Based Coding :: 30 minutes spent with patient and on the chart (including review of chart, obtaining history, exam, reviewing outside data, placing orders, documenting exam and treatment plan, and counseling patient) on 02/11/2025. Quality VTE Deep Vein Thrombosis/Pulmonary Embolism Present on Admission: No [facility] PROFEE Inspector Floor [employer] Assembly Document charge(s): Yes Charge Codes Critical Care: 63063
--- NOTE | 2025-02-11 15:15 | PT-IP ANOTE ---
PT order just put in. PT checks in on pt who is sleeping soundly. Spoke with nsg who reports pt may be more appropriate for PT evaluation next date.
--- NOTE | 2025-02-11 15:52 | OT.IPNOTE ---
Check on the pt tomorrow as per nurse would be more medically appropriate for therapy eval.
--- NOTE | 2025-02-11 16:12 | CM.DPNOTE ---
DCP note HAND ETCHER HELPER reviewed EMR per provider, will be here until Sun/Mon. pt open to INPT rehab. HAND ETCHER HELPER attempted to meet with pt in room. sleeping soundly, somnolent, not alert enough for DCP conversation. will attempt to meet with him again to discuss INPT rehab options YENIFER Patel
[2025-02-12] VITALS (56 sets, daily range): BP systolic 88–150; BP diastolic 57–96; PULSE 100–128; RESP 16–36; TEMP 36.9–37.7; O2SAT 95–100
[2025-02-12] MEDS: ACETAMINOPHEN 325 MG TABLET 650 MG PO ×2 (04:15→21:22)
[2025-02-12 08:44] LABS: Add Manual Diff / Slide Review NO; Hematocrit 31.3 % (41-53); Hemoglobin 10.9 g/dL (13.5-17.5); Lymphocytes Absolute Auto 1100 /uL (1100-4500); Mean Corpuscular HGB Conc 34.9 % (30-36); Mean Corpuscular Hemoglobin 36.0 PG (26-34); Mean Corpuscular Volume 103.2 fL (80-100); Platelet Count 186 X10^3/uL (150-400)
[2025-02-12 08:55] LABS: Alanine Aminotransferase 46 IU/L (<50); Blood Urea Nitrogen 13 mg/dL (9-20); Calcium 8.3 mg/dL (8.4-10.2); Carbon Dioxide 22 mmol/L (22-32); Chloride 101 mmol/L (98-107); Estimated Glomerular Filt Rate > 60 mL/min (>60); Glucose 155 mg/dL (70-99); HEMOLYSIS < 15 (0-50); Sodium 132 mmol/L (137-145)
[2025-02-12 09:09] LABS: Potassium 2.7 mmol/L (3.4-5.1)
--- NOTE | 2025-02-12 09:45 | P.PN_ITS ---
Subjective Subjective Date Patient Seen: 02/12/25 Time Patient Seen: 13:36 Interval history: Patient sleeping but arousable this afternoon. Oriented x3, some delayed recall/response but able to identify me as his primary physician. Reports ?over indulgence? led to his admission. Expresses desire to enter treatment for his alcoholism after hospital discharge. Exam Vital Signs (past 8 hours): - 02/12/25 02:00 02/12/25 02:00 02/12/25 02:30 Pulse Rate 112 H 112 H Respiratory Rate 29 H 26 H Blood Pressure 130/78 Pulse Oximetry 96 96 Oxygen Delivery Method 02/12/25 03:00 02/12/25 03:00 02/12/25 03:30 Pulse Rate 110 H 107 H Respiratory Rate 27 H 28 H Blood Pressure 136/82 Pulse Oximetry 97 97 Oxygen Delivery Method 02/12/25 04:00 02/12/25 04:00 02/12/25 04:00 Pulse Rate 108 H Respiratory Rate 26 H Blood Pressure 124/65 Pulse Oximetry 96 Oxygen Delivery Method Room Air 02/12/25 04:30 02/12/25 05:00 02/12/25 05:00 Pulse Rate 110 H 115 H Respiratory Rate 36 H 26 H Blood Pressure 109/65 Pulse Oximetry 98 96 Oxygen Delivery Method 02/12/25 05:30 02/12/25 06:00 02/12/25 06:00 Pulse Rate 122 H 103 H Respiratory Rate 26 H 27 H Blood Pressure 116/65 Pulse Oximetry 95 Oxygen Delivery Method 02/12/25 06:30 02/12/25 06:59 02/12/25 07:00 Pulse Rate 109 H 104 H Respiratory Rate 21 16 Blood Pressure 126/79 Pulse Oximetry 96 98 Oxygen Delivery Method 02/12/25 07:01 02/12/25 07:30 02/12/25 08:00 Pulse Rate 105 H 106 H Respiratory Rate 19 21 Blood Pressure Pulse Oximetry 98 96 Oxygen Delivery Method Room Air CPAP 02/12/25 08:00 02/12/25 08:00 02/12/25 08:30 Pulse Rate 102 H 104 H Respiratory Rate 21 21 Blood Pressure 102/57 L Pulse Oximetry 96 97 Oxygen Delivery Method 02/12/25 09:00 02/12/25 09:00 Pulse Rate 101 H Respiratory Rate 23 Blood Pressure 118/79 Pulse Oximetry 99 Oxygen Delivery Method Fraction of Inspired Oxygen 21 SaO2/FiO2 Ratio 438 Oxygen Delivery Method Room Air,CPAP Oxygen Flow Rate 2 Narrative Exam Narrative: HEENT: NC/AT, moist membranes CV: RRR, normal S1-S2, no m/g/r Resp: CTAB, cwob Abd: Soft, NTND, +BS Ext: No edema Skin: No rash or lesions noted Neuro: Oriented x3, moves all extremities Objective Labs 02/12/25 08:30 02/12/25 08:30 Labs: Laboratory Results - last 24 hr 02/12/25 08:30 WBC 6.5 RBC 3.03 L Hgb 10.9 L Hct 31.3 L MCV 103.2 H MCH 36.0 H MCHC 34.9 RDW 15.2 H Plt Count 186 Neut % (Auto) 62.5 Lymph % (Auto) 16.8 L [place] % (Auto) 19.4 H Eos % (Auto) 0.9 L Baso % (Auto) 0.4 Neut # (Auto) 4100 Lymph # (Auto) 1100 [place] # (Auto) 1300 H Eos # (Auto) 100 Baso # (Auto) 0 Sodium 132 L Potassium 2.7 L* Chloride 101 Carbon Dioxide 22 BUN 13 Creatinine 0.66 Estimated GFR > 60 BUN/Creatinine Ratio 19.7 Glucose 155 H Calcium 8.3 L AST 53 ALT 46 PFSH Medical History (Updated 02/12/25 @ 09:46 by Miguel Ángel Bruce MD) Coffee ground emesis Pancreatitis Alcohol withdrawal delirium Alcoholism in remission Acute upper GI bleed Mixed hyperlipidemia History of kidney disease as a child (10/09/16) 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) Essential hypertension (10/09/16) Surgical History Hx of appendectomy (1977) Hx of hernia repair (1999) History of nephrectomy (1977) History of unilateral nephrectomy (10/09/16) Family History Father Congestive heart failure Diabetes mellitus COPD (chronic obstructive pulmonary disease) Mother Hypertension Diabetes mellitus Cancer Other Alcoholism Social History marital status: household members: significant other and family occupational status: previously employed leisure activities: exercise Smoking Status: Current some day smoker Tobacco: How many years used: 50 alcohol intake: current substance use type: marijuana caffeine: Yes Type(s) of exercise: walking Assessment & Plan Assessment and plan (1) Alcohol withdrawal: Qualifiers: Complication of substance-induced condition: with perceptual disturbance Qualified Code(s): F10.932 - Alcohol use, unspecified with withdrawal with perceptual disturbance Status: Acute (2) Acute metabolic encephalopathy: Status: Acute (3) Malnutrition: Qualifiers: Malnutrition type: unspecified type Qualified Code(s): E46 - Unspecified protein-calorie malnutrition Status: Acute (4) Alcoholic hepatitis: Qualifiers: Ascites presence: without ascites Qualified Code(s): K70.10 - Alcoholic hepatitis without ascites Status: Acute (5) Pancreatic mass: Status: Acute (6) Pulmonary embolism: Qualifiers: Acute cor pulmonale presence: without acute cor pulmonale Chronicity: a cute Pulmonary embolism type: unspecified Qualified Code(s): I26.99 - Other pulmonary embolism without acute cor pulmonale Status: Acute (7) Hypokalemia: Status: Acute (8) Hypomagnesemia: Status: Acute (9) Hyponatremia: Status: Acute (10) Hypercalcemia: Status: Acute (11) Essential hypertension: Status: Chronic (12) BPH loc w urin obs/LUTS: Status: Acute Assessment & Plan narrative: 64-year-old male with hypertension, hyperlipidemia, alcohol use disorder, COPD/asthma, BPH w/obs LUTS admitted for acute alcohol withdrawal. 1. Moderate to severe acute alcohol withdrawal syndrome Last drink 02/07, now appears to be most symptomatic portion of withdrawal process. Weaned from precedex and transitioned to PO librium, has not required any supplemental Ativan to this point. Expresses desire to try rehab for his alcoholism. - librium 50mg tid, taper - ativan prn per CIWA protocol - CM consulted wrt entering rehab on discharge, investigating options 2. Acute metabolic encephalopathy due to alcohol withdrawal (resolved) Confused and disoriented on admission. Improved today, now off precedex. Requiring heavy 2 person assist for mobilization, may need physical rehab prior to entering alcohol treatment program. Unlikely to get insurance approval for either over the weekend, we will reassess on Saturday. - PT/OT consulted, discharge planning per their recs - reorient as needed 3. Moderate to severe malnutrition due to alcoholism - dietitian consultation - B12, folic acid replacement 4. Alcohol-induced hepatitis with liver inflammation elevation Chronic liver changes with acute inflammation, now resolved - trend 5. Pancreatic mass Stable over time. Lipase is not elevated currently does not appear to have ongoing pancreatitis. - f/u outpatient GI referral 6. Pulmonary emboli Diagnosed in September of this year, on Eliquis BID. Follow-up CTA 11/19/24 shows resolution. Appears that he is still on anticoagulation at this time per family's report. - consider transition to lovenox, dc on discharge 7. Hyponatremia - trend BMP 8. Hypokalemia - KCl 40 mEq PO 9. Hypomagnesemia (resolved) - replace prn 10. Hypercalcemia - trend 11. Hypertension - home lisinopril - consider beta-choco as well and/or clonidine for withdrawal 12. BPH - home flomax Diet: Regular GI ppx: H2 choco DVT ppx: Eliquis Code: FULL PCP: Teo MDM: Spouse Time-Based Coding :: 30 minutes spent with patient and on the chart (including review of chart, obtaining history, exam, reviewing outside data, placing orders, documenting exam and treatment plan, and counseling patient) on 02/12/2025. Quality VTE Deep Vein Thrombosis/Pulmonary Embolism Present on Admission: No [facility] PROFEE Wildlife Conservation Professor Document charge(s): Yes Charge Codes Subsequent inpatient/observation care: 92217
[2025-02-12] MEDS: MULTIVITAMIN 1 TABLET 1 TAB PO (10:09)
[2025-02-12] MEDS: THIAMINE 100 MG in SODIUM CHLORIDE 0.9% 100 ML 404 MG IV (10:09)
[2025-02-12] MEDS: APIXABAN 5 MG TABLET PO ×2 (10:09→21:13)
[2025-02-12] MEDS: FOLIC ACID 1 MG TABLET PO (10:09)
[2025-02-12] MEDS: POTASSIUM CHLORIDE 20 MEQ TAB 40 MEQ PO ×2 (10:09→17:03)
--- NOTE | 2025-02-12 10:11 | DIET.PN1 ---
Dietary Progress Note Assessment: Pt on diet now. Attempted visit this morning, with therapies. F/u as able later. Ht: 170.18 cm Wt: 58.559 kg BMI: 20.2 Last BM: 02/09/25 (02/09/25 18:34) MNA: 6 Ar Score: 15 Diet: 02/11/25 Dinner General (Regular) Diet Diet Modifications: Food Texture: Level 7 - Regular Liquid Consistency: Level 0 - Thin Labs: RBC 3.03 X10^6/uL (4.5-5.9) L 02/12/25 08:30 Hgb 10.9 g/dL (13.5-17.5) L 02/12/25 08:30 Hct 31.3 % (41-53) L 02/12/25 08:30 Creatinine 0.66 mg/dL (0.66-1.25) 02/12/25 08:30 Electronically Signed by: Guerda Ellis 02/12/25 10:11 Clinical Diet[address] [address]
--- NOTE | 2025-02-12 10:27 | PT.IIE ---
Current Diagnoses Unspecified protein-calorie malnutrition (02/09/25) Hypomagnesemia (02/09/25) Hypercalcemia (02/09/25) Hypo-osmolality and hyponatremia (02/09/25) Alcohol use, unspecified with withdrawal with perceptual disturbance (02/09/25) Metabolic encephalopathy (02/09/25) Essential (primary) hypertension (02/09/25) Other pulmonary embolism without acute cor pulmonale (02/09/25) Alcoholic hepatitis without ascites (02/09/25) Other specified diseases of pancreas (02/09/25) Benign prostatic hyperplasia with lower urinary tract symptoms (02/09/25) Surgical History (Last Reviewed 11/19/24 @ 18:49 by Ashely Edouard DO) History of nephrectomy (1977) History of unilateral nephrectomy (10/09/16) Hx of appendectomy (1977) Hx of hernia repair (1999) Medical History (Last Updated 02/10/25 @ 18:22 by Miguel Ángel Bruce MD) Acute upper GI bleed Alcohol withdrawal delirium 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 Coffee ground emesis Essential hypertension (10/09/16) History of kidney disease as a child (10/09/16) Mixed hyperlipidemia Pancreatitis Physical Therapy Inpatient Evaluation/Re-Eval M1 PT/OT-IP Prior Functional Status Start: 02/11/25 15:15 Freq: NEEDED Status: Active Protocol: Document 02/12/25 10:27 DLM (Rec: 02/12/25 10:45 DLM Desktop) Medical Review Prior Functional Status Medical History Yes Reviewed Diet/Fluid Regular Consistency Communication WFL, reading glasses Mobility and Gait Independent, no device Activities of Daily Independent Living and IADL's Social History Household Members significant other,family Living Arrangements RV Number of Floors ( One Floor Floors) Number of Stairs To 3 steps with one rail Enter/Railing? Home Environment Standard Height Toilet,Walk in Shower Home Equipment Shower Seat without Backrest,Hand Held Shower Additional Social he lives with his life partner (Joslyn) and [id number], History Comment possible other family members M2 PT-IP Current Condition Start: 02/11/25 15:15 Freq: NEEDED Status: Active Protocol: Document 02/12/25 10:27 DLM (Rec: 02/12/25 10:45 DLM Desktop) Physical Therapy Current Condition Current Condition Evaluation Date 02/12/25 Treatment Diagnosis ETOH w/d, impaired balance and coordination Onset Date 02/09/25 M3 PT-IP Subjective Start: 02/11/25 15:15 Freq: NEEDED Status: Active Protocol: Document 02/12/25 10:27 DLM (Rec: 02/12/25 10:45 DLM Desktop) Subjective Physical Therapy Visit Type Type Initial Evaluation Visit Start Time 10:00 Visit Stop Time 10:27 Notes 27 min co-eval with Occupational Therapy this visit 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 He describes feeling tired today. He is hungry. Patient Goals Get better Therapy Pain Assessment Pain When Pain Assessed After Treatment Pain Present Pain Present Pain Reported Location back Description Acute Pain Management Re-positioning Techniques M4 PT-IP Mobility and Gait Start: 02/11/25 15:15 Freq: NEEDED Status: Active Protocol: Document 02/12/25 10:27 DLM (Rec: 02/12/25 10:45 DLM Desktop) PT-Bed Mobility Assessment Supine to Sit Supine to Sit Standby Assistance Scooting Scooting to Edge of Minimal Assistance Bed PT-Transfer Assessment Sit to and From Stand Sit to and from Contact Guard Assistance,Minimal Assistance Stand Equipment Transfer Assistive Gait Belt,Front Wheeled Walker Device Transfers Transfer Destination Chair Transfer Technique Stand Step Pivot Transfer Ability Level of Assist Minimal Assistance,Moderate Assistance,2 Person Assistance,Use of Upper Extremities Comments Mobility Comments He moves very slowly during mobility with decreased coordination, mild light-headedness/dizziness with first sitting up that resolved with sitting. Initially he swayed in sitting on edge of bed. He has posterior lean with initial standing with FWW that improved with static standing but did not fully resolve. He has great difficulty lifting his feet to take steps which made it difficult for him to step from the bed to the chair. Pt left up in recliner with chair alarm in place, call light close and nursing aware. He was not able to advance to gait today due to difficulty lifting his feet for steps. Two person needed during transfer to assist with balance and manage FWW. PT-Balance Assessment Sitting Balance and Reactions Static Sitting Fair Balance Ability Dynamic Sitting Fair Balance Ability Standing Balance and Reactions Static Standing Poor Balance Ability Dynamic Standing Poor Balance Ability Device Used FWW M5 PT-IP Objective Assessments Start: 02/11/25 15:15 Freq: NEEDED Status: Active Protocol: Document 02/12/25 10:27 DLM (Rec: 02/12/25 10:45 DLM Desktop) Orientation Orientation/Cognition Level of Alertness Alert Orientation Name,Month,Year,Place,Situation Comments he is not attempting unsafe activity at this time, he has limited awareness of his current deficits Gross Range of Motion Upper Extremity ROM Assessment Within Functional Limits Lower Extremity ROM Assessment Within Functional Limits Strength Upper Extremity Strength Assessment Within Functional Limits Lower Extremity Strength Assessment Within Functional Limits Coordination Assessment Gross Coordination Gross Coordination Impaired Assessment Finger to Nose Test Moderate Impairment Foot Tapping Test Moderate Impairment Sensation Assessment Sensation Gross Sensation WNL Comments Sensation Comments he denies numbness/tingling Muscle Tone Muscle Tone WNL Yes M6 PT-IP Treatment Start: 02/11/25 15:15 Freq: NEEDED Status: Active Protocol: Document 02/12/25 10:27 DLM (Rec: 02/12/25 10:45 DLM Desktop) Physical Therapy Treatment Education Education Provided Safety Other Treatments Other Treatment educated in orientation and safety Performed no family present this visit M7 PT-IP Assessment and Plan Start: 02/11/25 15:15 Freq: NEEDED Status: Active Protocol: Document 02/12/25 10:27 DLM (Rec: 02/12/25 10:45 DLM Desktop) PT Summary Assessment and Plan Potential Rehabilitation Good Potential Status of Condition Evolving at Evaluation Summary Impairments Pain,Balance,Coordination,Cognition,Bed Mobility, Transfers,Gait,Activity Tolerance Assessment Summary Ayan was admitted for ETOH withdrawal with metabolic encephalopathy. He wakes up easily this morning and is able to stay alert for therapy. He presents with decreased activity tolerance, pain in his back and left hip area, decreased coordination and impaired balance. He was able to slowly progress his activity from sitting edge of bed to standing with the FWW to transfer to the recliner. He needs two person assist for transfers at this time due to his functional impairments. He is able to follow simple verbal instructions for mobility. He has great difficulty lifting his feet off the floor to take functional steps which prevented his progression to gait this visit. Will continue to work towards discharge home but recommend SNF rehab today based on his need for 2 person assist and his inability to ambulate. Goals Bed Mobility Goal Independent Transfer Goal Standby Assistance Gait Goal Standby Assistance,Front Wheel Walker Gait Distance 150 feet Other Goals up/down 3 steps with rail and SBA Days to Meet Goals 5 Frequency of Treatment Frequency Of Once a Day Treatment Treatment Plan Physical Therapy Bed Mobility Training,Transfer Training,Gait Training, Treatment Plan Therapeutic Exercise,Balance Retraining,Discharge Planning,Neuromuscular Re-ed,Coordination Retraining Precautions Other Precautions seizure precautions, fall risk Recommendations To Nursing Amount of Assist 2 Person Assist Needed Discharge Recommendations PT Discharge Home vs SNF Recommendations Other Discharge would need to be one person assist and ambulating to go Recommendations home Transportation Needs Private Vehicle,Wheelchair/Cabulance at Discharge - PT assist 2 assist
--- NOTE | 2025-02-12 10:28 | OT.IP.EVAL ---
Current Diagnoses Unspecified protein-calorie malnutrition (02/09/25) Hypomagnesemia (02/09/25) Hypercalcemia (02/09/25) Hypo-osmolality and hyponatremia (02/09/25) Alcohol use, unspecified with withdrawal with perceptual disturbance (02/09/25) Metabolic encephalopathy (02/09/25) Essential (primary) hypertension (02/09/25) Other pulmonary embolism without acute cor pulmonale (02/09/25) Alcoholic hepatitis without ascites (02/09/25) Other specified diseases of pancreas (02/09/25) Benign prostatic hyperplasia with lower urinary tract symptoms (02/09/25) Past Medical History (Last Updated 02/10/25 @ 18:22 by Miguel Ángel Bruce MD) Acute upper GI bleed Alcohol withdrawal delirium 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 Coffee ground emesis Essential hypertension (10/09/16) History of kidney disease as a child (10/09/16) Mixed hyperlipidemia Pancreatitis Surgical History (Last Reviewed 11/19/24 @ 18:49 by Ashely Edouard DO) History of nephrectomy (1977) History of unilateral nephrectomy (10/09/16) Hx of appendectomy (1977) Hx of hernia repair (1999) Occupational Therapy Inpatient Evaluation/Re-Eval M1 PT/OT-IP Prior Functional Status Start: 02/11/25 15:15 Freq: NEEDED Status: Active Protocol: Document 02/12/25 11:07 [facility] (Rec: 02/12/25 11:20 [facility] Desktop) Medical Review Prior Functional Status Medical History Yes Reviewed Diet/Fluid Regular Consistency Communication WFL, reading glasses Mobility and Gait Independent, no device Activities of Daily Independent Living and IADL's Social History Household Members significant other,family Living Arrangements RV Number of Floors ( One Floor Floors) Number of Stairs To 3 steps with one rail Enter/Railing? Home Environment Standard Height Toilet,Walk in Shower Home Equipment Shower Seat without Backrest,Hand Held Shower Additional Social he lives with his life partner (Joslyn) and [id number], History Comment possible other family members M2 OT-IP Current Condition Start: 02/12/25 11:07 Freq: Status: Active Protocol: Document 02/12/25 11:07 [facility] (Rec: 02/12/25 11:20 [facility] Desktop) Occupational Therapy Current Condition Current Condition Evaluation Date 02/12/25 Treatment Diagnosis ETOH withdraw, decreased coordination and generalized weakness Diagnosis Onset Date 02/09/25 M3 OT- IP Subjective and Pain Start: 02/12/25 11:07 Freq: Status: Active Protocol: Document 02/12/25 11:07 [facility] (Rec: 02/12/25 11:20 [facility] Desktop) OT- Subjective Occupational Therapy Visit Type Type Initial Evaluation Visit Start Time 10:00 Visit Stop Time 10:28 Occupational Therapy Visit Comments Patient Comments Pt agreed to get up to the recliner. CO -eval with PT. Patient/Caregiver To get better. Goals OT Pain Assessment Pain When Pain Assessed During Mobility Pain Present Pain Present Pain Reported Location Left Hip Pain Behaviors Facial Grimacing,Holding Area M4 OT- IP ADL's Start: 02/12/25 11:07 Freq: Status: Active Protocol: Document 02/12/25 11:07 [facility] (Rec: 02/12/25 11:20 [facility] Desktop) OT [id number] Comments OT Self-Feeding Not at meal time. Nursing aware pt has not eaten yet. Comments OT ADL-Grooming General Evaluation Grooming Ability Minimal Assistance Areas Needing Retrieving/Set-up of Grooming Items,Combing/Brushing Assistance Hair Comments OT Grooming Comments Assist to help brush the back of his hair. Assist to help basin in front of him to spit after brushing his teeth. OT ADL-Oral Care General Eval Oral Care Ability Standby Assistance Areas of Assistance Retrieving/Set-Up of Items OT ADL-Dressing Comments OT Dressing Comments Pt a bit shaky and will need assist for LB dressing needs at this time. OT ADL-Toileting General Evaluation Toileting Ability Total Assistance Comments OT Toileting [place] in place. Comments OT ADL-Bathing Comments OT Bathing Comments Pt will need assist at this time. M5 OT- IP IADL's Start: 02/12/25 11:07 Freq: Status: Active Protocol: Document 02/12/25 11:07 [facility] (Rec: 02/12/25 11:20 [facility] Desktop) OT-Instrumental Activities of Daily Living Home Safety Awareness Home Safety Comments Pt slow to respond to questions and to follow commands at this time. Medication Management Medication Pt at this time will benefit from at least supervision. Management Comments Money Management Money Management Pt will benefit from help. Comments Meal Preparation Meal Preparation Pt will need assist. Comments Journalism Instructor Journalism Instructor Pt will need assist. Comments M6 OT- IP Functional Cognition Start: 02/12/25 11:07 Freq: Status: Active Protocol: Document 02/12/25 11:07 [facility] (Rec: 02/12/25 11:20 [facility] Desktop) Cognitive Factors Limiting Selfcare Function Cognitive Ability Level of Alertness Alert Patient Orientation Name,Age,Birthday,Month,Year,Place Attention Span Capable of Focused Attention,Capable of Sustained Ability Attention Ability to Follow Able to Follow One Step Commands Commands Cognitive Comments Cognitive Assessment Pt increased time to follow commands and process. Comments OT- Vision and Hearing OT- Hearing Assessment OT- Hearing WFL Assessment OT- Vision Assessment Visual Acuity Glasses For Reading Visual Attentiveness WFL Occular Pursuits WFL M7 OT- IP Mobility and Balance Start: 02/12/25 11:07 Freq: Status: Active Protocol: Document 02/12/25 11:07 [facility] (Rec: 02/12/25 11:20 [facility] Desktop) OT- Bed Mobility Assessment Supine to Sit Supine to Sit Assist Standby Assistance OT-Transfer Assessment Sit to and From Stand Sit to and from Minimal Assistance Stand Transfers Transfer Ability Minimal Assistance,Moderate Assistance,2 Person Assistance Technique Transfer Destination Bed,Chair Transfer Technique Stand Step Pivot Devices Transfer Assistive Gait Belt,Front Wheeled Walker Devices Comments Mobility Comments Pt increased time to get to the edge of the bed. BP sitting 113/82 and after getting to the recliner 99/70, pt complaining of feeling woozy during transition of moving. SOY to stand to the FWW and assist to help hold the FWW in place and min/MODA x2 to transfer assist for balance and help guide the FWW. Pt having difficulty to pick his feet up while trying to transfer at this time with the FWW. Pt very unsteady on hid feet and tends to lean posteriorly on his heals. OT- Balance Assessment Sitting Balance and Reactions Static Sitting Fair Balance Ability Dynamic Sitting Fair Balance Ability Standing Balance and Reactions Static Standing Poor Balance Ability Dynamic Standing Poor Balance Ability M8 OT- IP Objective Assessments Start: 02/12/25 11:07 Freq: Status: Active Protocol: Document 02/12/25 11:07 [facility] (Rec: 02/12/25 11:20 [facility] Desktop) OT Gross Range of Motion Upper Extremity Range of Motion Assessment Bilaterally Impaired ROM Impairments BUE 0-100, Noted bruising on left side of his body. OT Strength Upper Extremity Strength Assessment Bilaterally Impaired Comments Strength Comments BUE 4/5 to 4+/5 M9 OT- IP Assessment and Plan Start: 02/12/25 11:07 Freq: Status: Active Protocol: Document 02/12/25 11:07 [facility] (Rec: 02/12/25 11:20 [facility] Desktop) OT Summary Assessment and Plan Potential Rehabilitation Good Potential Analytic Complexity Moderate at Evaluation Summary OT Impairments Pain,Range of Motion,Strength,Balance,Functional Cognition,Functional Mobility,Self-Feeding,Grooming, Dressing,Toileting,Bathing,Toilet Transfers,Shower Transfers,Activity Tolerance Progress Towards Slow Progress due to Pain,Slow Progress due to Medical Goals Issues,Slow Progress due to Activity Tolerance,Slow Progress due to Cognition Assessment Summary Pt MOD complexity and main barrier are decreased BP during transitions, steps, decreased balance, activity tolerance and now needing 2 person for transfers. At this time best for pt to go to skilled rehab. Hopefully as pt medically clears will improve enough to return home with 24/7 assist. Pt is very shaky during exertion of his BUE when trying to do grooming and oral care needs at this time. Goals Self-Feeding Goal Independent Grooming Goal Independent Dressing Goal Independent Toileting Goal Independent Bathing Goal Independent Toilet Transfer Goal Independent Shower Transfer Goal Independent Days to Meet Goals 15 Frequency of Treatment Other frequency 5x/week Treatment Plan OT Treatment Plan ADL Training,Functional Cognition Training,Functional Mobility,Patient/Family Education,Discharge Planning Discharge Recommendations OT Discharge SNF Home with 24/7 Assist Available,Home Health if medically improves Recommendations Home vs SNF Home Equipment Needs FWW Transportation Needs Wheelchair/Cabulance at Discharge
--- NOTE | 2025-02-12 14:44 | DIET.PN1 ---
Dietary Progress Note Assessment: Met with pt at bedside. Reports good appetite currently. Reports UBW of 137 lb (62.27 kg) Has only being doing 1 snack per day for last month. Ht: 170.18 cm Wt: 58.559 kg BMI: 20.2 UBW: 62 kg per pt (-6% weight loss over unknown period of time) Last BM: 02/09/25 (02/09/25 18:34) MNA: 6 Ar Score: 15 Diet: 02/11/25 Dinner General (Regular) Diet Diet Modifications: Food Texture: Level 7 - Regular Liquid Consistency: Level 0 - Thin Labs: RBC 3.03 X10^6/uL (4.5-5.9) L 02/12/25 08:30 Hgb 10.9 g/dL (13.5-17.5) L 02/12/25 08:30 Hct 31.3 % (41-53) L 02/12/25 08:30 Creatinine 0.66 mg/dL (0.66-1.25) 02/12/25 08:30 Nutrition Diagnosis: Severe chronic protein calorie malnutrition r/t inadequate intake of protein and nutrient dense food due to excess EtOH intake aeb pt drinks 4- 24 oz beers and vodka daily, hx of alcohol use disorder, <50% of estimated protein needs for >1 month Interventions: -Already getting multivitamin/folic acid/thiamine -Discussed getting 3 meals in daily, vitamins and minerals, protein needs, pt reporting good appetite so added milk at every meal (pt tolerates) to help meet protein goals and will re-assess if multiple meals less than 75% po intake EER: 1800 kcals (30 kcals/kg per BMI) 80 g protein (16% kcals vs 1.5 g/kg per PCM) Monitoring/Evaluations: po intakes Electronically Signed by: Guerda Ellis 02/12/25 14:44 Clinical Dietitian [address] [id number]
--- NOTE | 2025-02-12 16:19 | CM.DPNOTE ---
DCP note per PT/OT, pt 2PA at this time. per provider, will be here over weekend. potential SNF prior to INPT ETOH rehab needed if mobility continues to be impaired from baseline. [employer] met with pt and family in room. lengthy DCP conversation. reviewed potential need for SNF. pt and family in agreement. preference [facility] (closest [place] facility). will review options for INPT rehab for preference. P: pending mobility next few days either 1) dc to SNF (Pending auth and accepting facility) vs 2) dc to INPT ETOH/[facility] rehab. CM team will continue to follow closely for DCP coordination YENIFER Patel
[2025-02-12] MEDS: FAMOTIDINE 20 MG TABLET PO (21:13)
[2025-02-12] MEDS: ATORVASTATIN 20 MG TABLET 40 MG PO (21:13)
[2025-02-13] VITALS (60 sets, daily range): BP systolic 100–158; BP diastolic 03–106; PULSE 91–116; RESP 0–37; TEMP 36.3–37.1; O2SAT 96–100
--- NOTE | 2025-02-13 03:19 | PC.NURSE ---
Called Dr. Browning regarding pt's elevated B/P and informed MD that pt. is taking lisinopril 30 mg po daily but is not ordered, telephone order received to give lisinopril 30 mg now then daily.
[2025-02-13 05:36] LABS: Add Manual Diff / Slide Review NO; Hematocrit 28.7 % (41-53); Hemoglobin 10.2 g/dL (13.5-17.5); Lymphocytes Absolute Auto 1600 /uL (1100-4500); Mean Corpuscular HGB Conc 35.4 % (30-36); Mean Corpuscular Hemoglobin 36.0 PG (26-34); Mean Corpuscular Volume 101.7 fL (80-100); Platelet Count 216 X10^3/uL (150-400)
[2025-02-13 05:39] LABS: Blood Urea Nitrogen 14 mg/dL (9-20); Calcium 8.6 mg/dL (8.4-10.2); Carbon Dioxide 24 mmol/L (22-32); Chloride 104 mmol/L (98-107); Estimated Glomerular Filt Rate > 60 mL/min (>60); Glucose 104 mg/dL (70-99); HEMOLYSIS < 15 (0-50); Potassium 3.4 mmol/L (3.4-5.1); Sodium 135 mmol/L (137-145)
[2025-02-13] MEDS: APIXABAN 5 MG TABLET PO ×2 (08:44→21:51)
[2025-02-13] MEDS: MULTIVITAMIN 1 TABLET 1 TAB PO (08:44)
[2025-02-13] MEDS: FOLIC ACID 1 MG TABLET PO (08:44)
[2025-02-13] MEDS: THIAMINE 100 MG TABLET PO (08:44)
[2025-02-13] MEDS: TAMSULOSIN 0.4 MG CAPSULE PO (08:44)
[2025-02-13] MEDS: POTASSIUM CHLORIDE 20 MEQ TAB 40 MEQ PO (08:47)
[2025-02-13] MEDS: ACETAMINOPHEN 325 MG TABLET 650 MG PO ×2 (08:47→21:50)
--- NOTE | 2025-02-13 10:14 | DI.RAD.S_ITS ---
PROCEDURE: XR KNEE LT 3V INDICATIONS: knee pain TECHNIQUE: 3 views of the knee were acquired. COMPARISON: None. FINDINGS: Bones: No fractures or dislocations. No suspicious bony lesions. Tricompartmental joint space narrowing with associated osteophytosis. Soft tissues: Small joint effusion. No suspicious soft tissue calcifications. IMPRESSION: No acute bony abnormality or significant effusion. [id number] tricompartmental osteoarthritis. Kellgren-Oren Grade 2. Dictated by: Edward Vickers M.D. on 02/13/2025 at 10:46 Approved by: Edward Vickers M.D. on 02/13/2025 at 10:46
--- NOTE | 2025-02-13 10:15 | P.PN_ITS ---
Subjective Subjective Date Patient Seen: 02/13/25 Time Patient Seen: 10:15 Interval history: This morning the pt reports overall feeling well. He denies any chest pain, SOB, abdominal pain. He does report significant left knee pain that he believes started after he ran into a cabinet at home. Exam Vital Signs (past 8 hours): - 02/13/25 02:30 02/13/25 03:00 02/13/25 03:00 Temperature Pulse Rate 106 H 109 H Respiratory Rate 18 19 Blood Pressure 150/106 H 150/106 H Pulse Oximetry 97 99 Oxygen Delivery Method Oxygen Flow Rate 0 02/13/25 03:00 02/13/25 03:03 02/13/25 03:03 Temperature 98.3 F Pulse Rate 109 H 111 H Respiratory Rate 19 17 Blood Pressure 158/03 H 158/103 H Pulse Oximetry 99 100 Oxygen Delivery Method Oxygen Flow Rate 0 0 02/13/25 03:03 02/13/25 03:30 02/13/25 03:43 Temperature Pulse Rate 111 H 104 H Respiratory Rate 17 18 Blood Pressure 102/65 Pulse Oximetry 100 96 Oxygen Delivery Method Oxygen Flow Rate 02/13/25 03:43 02/13/25 03:44 02/13/25 04:00 Temperature Pulse Rate 100 H 100 H 97 H Respiratory Rate 17 18 Blood Pressure 102/65 Pulse Oximetry 96 96 Oxygen Delivery Method Oxygen Flow Rate 02/13/25 04:00 02/13/25 04:30 02/13/25 05:00 Temperature Pulse Rate 96 H Respiratory Rate 18 Blood Pressure 100/66 113/74 Pulse Oximetry 97 Oxygen Delivery Method Oxygen Flow Rate 02/13/25 05:00 02/13/25 05:30 02/13/25 06:00 Temperature Pulse Rate 97 H 93 H Respiratory Rate 21 14 Blood Pressure 119/65 Pulse Oximetry 97 98 Oxygen Delivery Method Oxygen Flow Rate 02/13/25 06:00 02/13/25 07:00 02/13/25 08:29 Temperature 97.5 F L Pulse Rate 91 H 101 H Respiratory Rate 18 14 Blood Pressure 150/93 H Pulse Oximetry 99 99 Oxygen Delivery Method Room Air Oxygen Flow Rate 0 02/13/25 08:44 Temperature Pulse Rate 104 H Respiratory Rate Blood Pressure 150/93 H Pulse Oximetry Oxygen Delivery Method Oxygen Flow Rate Fraction of Inspired Oxygen 21 SaO2/FiO2 Ratio 438 Oxygen Delivery Method Room Air Oxygen Flow Rate 0 Narrative Exam Narrative: Gen: NAD, sitting comfortably in bed, appears well, alert, talkative CV: RRR, no murmurs Resp: clear to auscultation bilaterally, no wheezes or crackles Abd: soft, nontender, nondistended Ext: no edema; left knee tender to palpation inferior to patella, FROM, negative provocative testing Objective Labs 02/13/25 04:30 02/13/25 04:30 Labs: Laboratory Results - last 24 hr 02/13/25 04:30 WBC 5.7 RBC 2.82 L Hgb 10.2 L Hct 28.7 L MCV 101.7 H MCH 36.0 H MCHC 35.4 RDW 15.4 H Plt Count 216 Neut % (Auto) 52.2 Lymph % (Auto) 28.2 [place] % (Auto) 16.4 H Eos % (Auto) 2.6 Baso % (Auto) 0.6 Neut # (Auto) 3000 Lymph # (Auto) 1600 [place] # (Auto) 900 Eos # (Auto) 100 Baso # (Auto) 0 Sodium 135 L Potassium 3.4 Chloride 104 Carbon Dioxide 24 BUN 14 Creatinine 0.65 L Estimated GFR > 60 BUN/Creatinine Ratio 21.5 Glucose 104 H Calcium 8.6 PFSH Medical History (Updated 02/12/25 @ 09:46 by Miguel Ángel Bruce MD) Coffee ground emesis Pancreatitis Alcohol withdrawal delirium Alcoholism in remission Acute upper GI bleed Mixed hyperlipidemia History of kidney disease as a child (10/09/16) 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) Essential hypertension (10/09/16) Surgical History Hx of appendectomy (1977) Hx of hernia repair (1999) History of nephrectomy (1977) History of unilateral nephrectomy (10/09/16) Family History Father Congestive heart failure Diabetes mellitus COPD (chronic obstructive pulmonary disease) Mother Hypertension Diabetes mellitus Cancer Other Alcoholism Social History marital status: household members: significant other and family occupational status: previously employed leisure activities: exercise Smoking Status: Current some day smoker Tobacco: How many years used: 50 alcohol intake: current substance use type: marijuana caffeine: Yes Type(s) of exercise: walking Assessment & Plan Assessment & Plan narrative: 64-year-old male with hypertension, hyperlipidemia, alcohol use disorder, COPD/asthma, BPH w/obs LUTS, pulmonary embolism admitted for acute alcohol withdrawal. 1. Moderate to severe acute alcohol withdrawal syndrome Last drink 02/07. Weaned from precedex and transitioned to PO librium. No supplemental Ativan required, CIWA 0 this morning. Expresses desire to try rehab for his alcoholism. - Taper Librium to 25mg TID today - Ativan prn per CIWA protocol 2. Acute metabolic encephalopathy due to alcohol withdrawal (resolved) Confused and disoriented on admission. Stable now and at baseline, however still very weak. Requiring heavy 2 person assist for mobilization, will need physical rehab prior to entering alcohol treatment program. - PT/OT consulted, discharge planning per their recs - Reorient as needed 3. Moderate to severe malnutrition due to alcoholism - Dietitian consultation - B12, folic acid replacement 4. Alcohol-induced hepatitis with liver inflammation elevation: Resolved 5. Pancreatic mass: Stable over time. Lipase is not elevated currently does not appear to have ongoing pancreatitis. - f/u outpatient GI referral 6. Pulmonary emboliL Diagnosed in September of this year, on Eliquis BID. Follow-up CTA 11/19/24 shows resolution. Appears that he is still on anticoagulation at this time per family's report. - Continue Eliquis - Discontinue at d/c 7. Hyponatremia: Stable, mild - Continue to trend 8. Hypokalemia: Stable 9. Hypomagnesemia (resolved) - Replace prn 10. Hypercalcemia: Stable 11. Hypertension: BPs variable - Continue home lisinopril - Consider beta-choco as well and/or clonidine for withdrawal if remaining elevated 12. BPH - Continue home flomax 13. Right knee pain - Xray knee today - Continue Tylenol PRN for pain Diet: Regular GI ppx: H2 choco DVT ppx: Eliquis Code: FULL PCP: Teo MDM: Spouse Dispo: Pending continued work with PT, appropriate placement obtained. Time-Based Coding :: [TOTAL MINUTES] spent with patient and on the chart (including review of chart, obtaining history, exam, reviewing outside data, placing orders, documenting exam and treatment plan, and counseling patient) on [DATE]. Quality VTE Deep Vein Thrombosis/Pulmonary Embolism Present on Admission: No IH PROFEE Pulling Unit Operator Document charge(s): Yes Charge Codes Subsequent inpatient/observation care: [id number]
--- NOTE | 2025-02-13 12:54 | CM.DPNOTE ---
DCP note RURAL SOCIOLOGIST reviewed EMR per Nallely, pt will likely need SNF before INPT ETOH rehab. RURAL SOCIOLOGIST met with pt in room. agreeable to SNF. preference [facility]. remains agreeable no ETOH or smoking at SNF. RURAL SOCIOLOGIST sent initial referral information to [facility] at [facility] for review, acceptance pending will start auth PASRR needed if SNF P: anticipate dc to SNF ([facility] pending auth/acceptance) vs INPT ETOH. CM team will continue to follow closely for DCP coordination YENIFER Patel
--- NOTE | 2025-02-13 14:28 | PT.IPTN ---
Current Diagnoses Unspecified protein-calorie malnutrition (02/09/25) Hypomagnesemia (02/09/25) Hypercalcemia (02/09/25) Hypo-osmolality and hyponatremia (02/09/25) Hypokalemia (02/09/25) Alcohol use, unspecified with withdrawal with perceptual disturbance (02/09/25) Metabolic encephalopathy (02/09/25) Essential (primary) hypertension (02/09/25) Other pulmonary embolism without acute cor pulmonale (02/09/25) Alcoholic hepatitis without ascites (02/09/25) Other specified diseases of pancreas (02/09/25) Benign prostatic hyperplasia with lower urinary tract symptoms (02/09/25) Physical Therapy Treatment Note M2 PT-IP Current Condition Start: 02/11/25 15:15 Freq: NEEDED Status: Active Protocol: Document 02/12/25 10:27 DLM (Rec: 02/12/25 10:45 DLM Desktop) Physical Therapy Current Condition Current Condition Evaluation Date 02/12/25 Treatment Diagnosis ETOH w/d, impaired balance and coordination Onset Date 02/09/25 M3 PT-IP Subjective Start: 02/11/25 15:15 Freq: NEEDED Status: Active Protocol: Document 02/13/25 14:28 DLM (Rec: 02/13/25 17:48 DLM Desktop) Subjective Physical Therapy Visit Type Type Treatment Note Visit Start Time 13:50 Visit Stop Time 14:28 Notes 38 min Number of SENIOR HARDWARE ENGINEER Visits 0 Physical Therapy Visit Comments Patient Comments He c/o left knee pain which was x-rayed today. Patient Goals Get better Therapy Pain Assessment Pain When Pain Assessed During Exercise Pain Present Pain Present Pain Reported Location Left Knee Intensity 5 Scale Used Numeric (0 - 10) Description Aching,Tender,With Movement Pain Behaviors Guarding,Wincing Pain Management Modification of Treatment,Re-positioning Techniques Left Hip Intensity 8 Scale Used Numeric (0 - 10) Description Aching,With Movement Pain Behaviors Guarding,Wincing Pain Management Modification of Treatment,Re-positioning Techniques M4 PT-IP Mobility and Gait Start: 02/11/25 15:15 Freq: NEEDED Status: Active Protocol: Document 02/13/25 14:28 DLM (Rec: 02/13/25 17:48 DLM Desktop) PT-Transfer Assessment Sit to and From Stand Sit to and from Minimal Assistance,Moderate Assistance Stand Equipment Transfer Assistive Gait Belt,Front Wheeled Walker Device Transfers Transfer Destination Chair,Bedside Commode Transfer Technique Stand Step Pivot Transfer Ability Level of Assist Minimal Assistance,Moderate Assistance Comments Mobility Comments Pt sitting up in recliner this visit having gotten up earlier with nursing. He has initial posterior lean with standing that improves with training and time in standing. Pt transferred to bedside commode first for BM then back to the recliner. He has great difficulty with weight shifting in standing and lifting feet to take functional steps. With training pt was able to gradually improve his standing weight shift and lift his feet off the floor and progress to gait. Pt left up in recliner at the end of this treatment with chair alarm in place. Gait Assessment Gait Gait Assistance Minimum Assistance,Moderate Assistance Required: Distance (Feet) 10 Assistive Devices Assistive Device Gait Belt,Front Wheeled Walker Gait Deviations General Gait Pattern Ataxic,Decreased Stride Length,Decreased Feet Clearance Factors Limiting Gait Function Factors Limiting Decreased Activity Tolerance,Incoordination,Poor Gait Function Balance Comments Gait Comments He gradually progressed to taking functional but small steps, he needs assist to stay inside of the FWW as he ambulates, he ambulated 2 x 10 feet with seated rest on bed between gait trials. PT-Balance Assessment Sitting Balance and Reactions Static Sitting Fair Balance Ability Dynamic Sitting Fair Balance Ability Standing Balance and Reactions Static Standing Fair Balance Ability Dynamic Standing Poor Balance Ability Device Used FWW Comments Other Balance Tests/ posterior lean sitting and standing Deviations/Treatment : M5 PT-IP Objective Assessments Start: 02/11/25 15:15 Freq: NEEDED Status: Active Protocol: Document 02/12/25 10:27 DLM (Rec: 02/12/25 10:45 DLM Desktop) Orientation Orientation/Cognition Level of Alertness Alert Orientation Name,Month,Year,Place,Situation Comments he is not attempting unsafe activity at this time, he has limited awareness of his current deficits Gross Range of Motion Upper Extremity ROM Assessment Within Functional Limits Lower Extremity ROM Assessment Within Functional Limits Strength Upper Extremity Strength Assessment Within Functional Limits Lower Extremity Strength Assessment Within Functional Limits Coordination Assessment Gross Coordination Gross Coordination Impaired Assessment Finger to Nose Test Moderate Impairment Foot Tapping Test Moderate Impairment Sensation Assessment Sensation Gross Sensation WNL Comments Sensation Comments he denies numbness/tingling Muscle Tone Muscle Tone WNL Yes M6 PT-IP Treatment Start: 02/11/25 15:15 Freq: NEEDED Status: Active Protocol: Document 02/13/25 14:28 DLM (Rec: 02/13/25 17:48 DLM Desktop) Physical Therapy Treatment Exercises Exercises Ankle Pumps,Seated Knee Flexion/Extension Education Education Provided Safety Other Treatments Other Treatment other exercises: Performed seated hip flexion with c/o pain in left hip Standing hip flexion with FWW to improve feet clearance Standing weight shifting training with FWW to improve feet clearance and functional stepping M7 PT-IP Assessment and Plan Start: 02/11/25 15:15 Freq: NEEDED Status: Active Protocol: Document 02/13/25 14:28 DLM (Rec: 02/13/25 17:48 DLM Desktop) PT Summary Assessment and Plan Summary Impairments Pain,Balance,Coordination,Cognition,Bed Mobility, Transfers,Gait,Activity Tolerance Progress Towards Slow Progress due to Medical Issues,Slow Progress due Goals to Activity Tolerance Assessment Summary Donavan shows slow but good progress with therapy today . With training he was able to improve his ability to take functional steps and advance to gait with the FWW. He continues to demonstrate impairments in his balance and coordination that limit his gait. He shows good participation in therapy. He needs to be able to advance his gait to household distances and family would need to be able to assist him to go home. No family present today to discuss discharge planning. He could benefit from SNF rehab to continue to advance his functional mobility and decrease his fall risks. Goals Bed Mobility Goal Independent Transfer Goal Standby Assistance Gait Goal Standby Assistance,Front Wheel Walker Gait Distance 150 feet Other Goals up/down 3 steps with rail and SBA Days to Meet Goals 5 Frequency of Treatment Frequency Of Once a Day Treatment Treatment Plan Physical Therapy Bed Mobility Training,Transfer Training,Gait Training, Treatment Plan Therapeutic Exercise,Balance Retraining,Discharge Planning,Neuromuscular Re-ed,Coordination Retraining Precautions Other Precautions seizure precautions, fall risk Recommendations To Nursing Amount of Assist 1 Person Assist,2 Person Assist Needed Discharge Recommendations PT Discharge Home vs SNF Recommendations Other Discharge would need to be one person assist and ambulating Recommendations household distances to go home Transportation Needs Private Vehicle,Wheelchair/Cabulance at Discharge - PT assist 1
[2025-02-13 19:05] LABS: Blood Urea Nitrogen 14 mg/dL (9-20); Calcium 8.8 mg/dL (8.4-10.2); Carbon Dioxide 31 mmol/L (22-32); Chloride 99 mmol/L (98-107); Estimated Glomerular Filt Rate > 60 mL/min (>60); Glucose 99 mg/dL (70-99); HEMOLYSIS < 15 (0-50); Potassium 4.5 mmol/L (3.4-5.1); Sodium 134 mmol/L (137-145)
[2025-02-13] MEDS: SODIUM CHLORIDE 0.9% 500 ML IV (19:26)
[2025-02-13] MEDS: FAMOTIDINE 20 MG TABLET PO (21:51)
[2025-02-13] MEDS: ATORVASTATIN 20 MG TABLET 40 MG PO (21:51)
[2025-02-14] VITALS (58 sets, daily range): BP systolic 104–169; BP diastolic 76–105; PULSE 0–113; RESP 12–47; TEMP 36.3–37.7; O2SAT 96–98
[2025-02-14 05:47] LABS: Blood Urea Nitrogen 11 mg/dL (9-20); Calcium 8.8 mg/dL (8.4-10.2); Carbon Dioxide 28 mmol/L (22-32); Chloride 103 mmol/L (98-107); Estimated Glomerular Filt Rate > 60 mL/min (>60); Glucose 108 mg/dL (70-99); HEMOLYSIS < 15 (0-50); Magnesium 1.2 mg/dL (1.6-2.3); Potassium 4.2 mmol/L (3.4-5.1); Sodium 134 mmol/L (137-145)
--- NOTE | 2025-02-14 08:27 | PM.PN.IH.1 ---
Subjective Subjective Interval history: The pt reports overall feeling well this morning. He feels in general more alert. He is stronger, but still feels it is difficult to rise due to having no ab muscles. He denies any chest pain, SOB, abdominal pain. He did have an unwitnessed fall this morning when trying to transfer without any assistance. He denies any injury/pain after the fall. Exam Vital Signs (past 8 hours): - 02/14/25 00:30 02/14/25 01:00 02/14/25 01:30 Pulse Rate 96 H 102 H 0 L Respiratory Rate 18 15 Blood Pressure Pulse Oximetry 02/14/25 01:54 02/14/25 01:54 02/14/25 02:00 Pulse Rate 93 H 94 H Respiratory Rate 19 17 Blood Pressure 120/83 Pulse Oximetry 98 02/14/25 02:30 02/14/25 03:00 02/14/25 03:30 Pulse Rate 97 H 101 H 104 H Respiratory Rate 19 16 16 Blood Pressure Pulse Oximetry 02/14/25 04:00 02/14/25 04:30 02/14/25 05:00 Pulse Rate 100 H 92 H 92 H Respiratory Rate 17 23 20 Blood Pressure Pulse Oximetry 02/14/25 05:30 02/14/25 06:00 02/14/25 06:30 Pulse Rate 93 H 92 H 94 H Respiratory Rate 18 17 18 Blood Pressure Pulse Oximetry 02/14/25 07:00 Pulse Rate 98 H Respiratory Rate 14 Blood Pressure Pulse Oximetry Fraction of Inspired Oxygen 21 SaO2/FiO2 Ratio 438 Oxygen Delivery Method Room Air Oxygen Flow Rate 0 Narrative Exam Narrative: Gen: NAD, sitting comfortably in bed, appears well, alert, talkative CV: RRR, no murmurs Resp: clear to auscultation bilaterally, no wheezes or crackles Abd: soft, nontender, nondistended Ext: no edema Objective Labs 02/13/25 04:30 02/14/25 04:40 Labs: Laboratory Results - last 24 hr 02/13/25 02/14/25 18:47 04:40 Sodium 134 L 134 L Potassium 4.5 4.2 Chloride 99 103 Carbon Dioxide 31 28 BUN 14 11 Creatinine 0.73 0.62 L Estimated GFR > 60 > 60 BUN/Creatinine Ratio 19.2 17.7 Glucose 99 108 H Calcium 8.8 8.8 Magnesium 1.2 L PFSH Medical History (Updated 02/12/25 @ 09:46 by Miguel Ángel Bruce MD) Coffee ground emesis Pancreatitis Alcohol withdrawal delirium Alcoholism in remission Acute upper GI bleed Mixed hyperlipidemia History of kidney disease as a child (10/09/16) 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) Essential hypertension (10/09/16) Surgical History Hx of appendectomy (1977) Hx of hernia repair (1999) History of nephrectomy (1977) History of unilateral nephrectomy (10/09/16) Family History Father Congestive heart failure Diabetes mellitus COPD (chronic obstructive pulmonary disease) Mother Hypertension Diabetes mellitus Cancer Other Alcoholism Social History marital status: household members: significant other and family occupational status: previously employed leisure activities: exercise Smoking Status: Current some day smoker Tobacco: How many years used: 50 alcohol intake: current substance use type: marijuana caffeine: Yes Type(s) of exercise: walking Assessment & Plan Assessment & Plan narrative: 64-year-old male with hypertension, hyperlipidemia, alcohol use disorder, COPD/asthma, BPH w/obs LUTS, pulmonary embolism admitted for acute alcohol withdrawal. 1. Moderate to severe acute alcohol withdrawal syndrome Last drink 02/07. Weaned from precedex and transitioned to PO librium. No supplemental Ativan required, CIWA remains very low. Expresses desire to try rehab for his alcoholism. - Taper Librium to 25mg BID today - Ativan prn per CIWA protocol 2. Acute metabolic encephalopathy due to alcohol withdrawal (resolved) Confused and disoriented on admission. Stable now and at baseline, however still very weak. Requiring 1-2 person assist for mobilization, will need physical rehab prior to entering alcohol treatment program. - PT/OT consulted, requires SNF/rehab placement - Reorient as needed 3. Moderate to severe malnutrition due to alcoholism - Dietitian consultation - B12, folic acid replacement 4. Alcohol-induced hepatitis with liver inflammation elevation: Resolved 5. Pancreatic mass: Stable over time. Lipase is not elevated currently does not appear to have ongoing pancreatitis. - f/u outpatient GI referral 6. Pulmonary emboli: Diagnosed in September of this year, on Eliquis BID. Follow-up CTA 11/19/24 shows resolution. Appears that he is still on anticoagulation at this time per family's report. - Continue Eliquis - Discontinue at d/c 7. Hyponatremia: Stable, mild - Continue to trend 8. Hypokalemia: Stable 9. Hypomagnesemia: - Replace as per protocol 10. Hypercalcemia: Stable 11. Hypertension: BPs variable - Continue home lisinopril - Consider beta-choco as well and/or clonidine for withdrawal if remaining elevated 12. BPH - Continue home flomax 13. Right knee pain: xray showing arthritic changes - Continue Tylenol PRN for pain Diet: Regular GI ppx: H2 choco DVT ppx: Eliquis Code: FULL PCP: Teo MDM: Spouse Dispo: Pending appropriate placement in SNF/rehab. Care management working on finding location. Time-Based Coding :: [TOTAL MINUTES] spent with patient and on the chart (including review of chart, obtaining history, exam, reviewing outside data, placing orders, documenting exam and treatment plan, and counseling patient) on [DATE]. Quality VTE Deep Vein Thrombosis/Pulmonary Embolism Present on Admission: No IH PROFEE Special Weapons Unit Officer Document charge(s): Yes Charge Codes Subsequent inpatient/observation care: [id number]
[2025-02-14] MEDS: MAGNESIUM CHLORIDE 64 MG TABLET 128 MG PO ×2 (08:59→15:23)
[2025-02-14] MEDS: MULTIVITAMIN 1 TABLET 1 TAB PO (09:00)
[2025-02-14] MEDS: APIXABAN 5 MG TABLET PO ×2 (09:00→20:21)
[2025-02-14] MEDS: FOLIC ACID 1 MG TABLET PO (09:00)
[2025-02-14] MEDS: THIAMINE 100 MG TABLET PO (09:00)
[2025-02-14] MEDS: TAMSULOSIN 0.4 MG CAPSULE PO (09:00)
--- NOTE | 2025-02-14 09:35 | PC.NURSE ---
Addendum entered by Natalya Granda RN 02/14/25 10:21: Dr Browning reached by cell phone at [phone]. No new orders at this time. Original Note: Approximately 0925 RN heard crash from room. Entered room and found pt on floor in front of recliner with call light in reach in recliner and chair alarm behind recliner. Pt awake, alert, oriented to baseline. Pt states he fell trying to get up out of recliner and hit his L knee, denied hitting any other body part including head. 2 RNs and MOLDER OPERATOR helped pt back to feet with gait belt and walker. Pt able to ambulate with assistance to bedside commode and then back to recliner. Charge nurse Ludivina notified, Dr Browning notified via [employer] [id number], attempted to call cell phone [phone].
--- NOTE | 2025-02-14 10:18 | PT-IP ANOTE ---
Pt discussed in rounds. Pt may have injured knee. Will hold PT today until pt is assessed by physician.
--- NOTE | 2025-02-14 15:30 | CM.DPNOTE ---
DCP Cont [facility] declines; no beds available. May have beds next week. Spoke with patient and he is okay with referral to [facility]. Emailed this referral to Idalmis at [facility], [email or web address]. Awaiting feedback. Hospital exempt PASRR needed for anti-depressant Nortriptyline, ETOH use, ativan at [place] (?). Of Note: Re inpatient JACKELIN treatment, patient likely will need an JACKELIN assessment from a licensed and qualified person or agency in order to be considered for inpatient bed hold/placement. This needs to be discussed with patient/family. ARTHUR
[2025-02-14] MEDS: FAMOTIDINE 20 MG TABLET PO (20:21)
[2025-02-14] MEDS: ATORVASTATIN 20 MG TABLET 40 MG PO (20:21)
[2025-02-15] VITALS (37 sets, daily range): BP systolic 97–155; BP diastolic 70–102; PULSE 0–121; RESP 16–39; TEMP 36.6–37.2; O2SAT 92–98
[2025-02-15] MEDS: ACETAMINOPHEN 325 MG TABLET 650 MG PO (01:37)
[2025-02-15 05:09] LABS: Add Manual Diff / Slide Review NO; Hematocrit 30.6 % (41-53); Hemoglobin 10.5 g/dL (13.5-17.5); Lymphocytes Absolute Auto 1200 /uL (1100-4500); Mean Corpuscular HGB Conc 34.3 % (30-36); Mean Corpuscular Hemoglobin 35.0 PG (26-34); Mean Corpuscular Volume 102.2 fL (80-100); Platelet Count 365 X10^3/uL (150-400)
[2025-02-15 05:13] LABS: Alanine Aminotransferase 43 IU/L (<50); Albumin 3.2 g/dL (3.5-5.0); Albumin Globulin Ratio 1.0 (1.0-2.8); Alkaline Phosphatase 80 U/L (38-126); Blood Urea Nitrogen 13 mg/dL (9-20); Calcium 9.6 mg/dL (8.4-10.2); Carbon Dioxide 26 mmol/L (22-32); Chloride 101 mmol/L (98-107); Estimated Glomerular Filt Rate > 60 mL/min (>60); Globulin 3.3 g/dL (1.7-4.1); Glucose 110 mg/dL (70-99); HEMOLYSIS < 15 (0-50); Magnesium 1.2 mg/dL (1.6-2.3); Potassium 4.5 mmol/L (3.4-5.1); Sodium 133 mmol/L (137-145); Total Protein 6.5 g/dL (6.3-8.2)
[2025-02-15] MEDS: FOLIC ACID 1 MG TABLET PO (08:08)
[2025-02-15] MEDS: APIXABAN 5 MG TABLET PO ×2 (08:08→21:21)
[2025-02-15] MEDS: TAMSULOSIN 0.4 MG CAPSULE PO (08:09)
[2025-02-15] MEDS: MULTIVITAMIN 1 TABLET 1 TAB PO (08:09)
[2025-02-15] MEDS: THIAMINE 100 MG TABLET PO (08:09)
[2025-02-15] MEDS: SODIUM CHLORIDE 0.9% FLUSH 10 ML IV ×2 (08:18→21:22)
[2025-02-15] MEDS: MAGNESIUM CHLORIDE 64 MG TABLET 128 MG PO ×2 (09:54→16:59)
--- NOTE | 2025-02-15 13:26 | PM.PN.IH.1 ---
Subjective Subjective Interval history: The pt was resting comfortably this morning. He denied any concerns. Exam Vital Signs (past 8 hours): - 02/15/25 06:00 02/15/25 07:00 02/15/25 07:57 Temperature Pulse Rate 100 H 98 H Respiratory Rate 20 19 Blood Pressure Oxygen Delivery Method Room Air 02/15/25 08:00 02/15/25 08:00 02/15/25 08:06 Temperature 97.8 F Pulse Rate 96 H Respiratory Rate 16 Blood Pressure 122/85 Oxygen Delivery Method 02/15/25 08:06 02/15/25 08:07 02/15/25 09:00 Temperature Pulse Rate 95 H 93 H Respiratory Rate 19 Blood Pressure 122/85 123/87 Oxygen Delivery Method 02/15/25 09:00 02/15/25 10:00 02/15/25 10:00 Temperature Pulse Rate 104 H 101 H Respiratory Rate 21 23 Blood Pressure 138/95 H Oxygen Delivery Method 02/15/25 11:00 02/15/25 11:04 02/15/25 11:04 Temperature Pulse Rate 100 H 103 H Respiratory Rate 20 21 Blood Pressure 152/100 H Oxygen Delivery Method 02/15/25 11:41 02/15/25 11:41 02/15/25 12:00 Temperature 98.1 F Pulse Rate 104 H Respiratory Rate 19 Blood Pressure 127/88 Oxygen Delivery Method 02/15/25 12:00 Temperature Pulse Rate 96 H Respiratory Rate 19 Blood Pressure Oxygen Delivery Method Fraction of Inspired Oxygen 21 SaO2/FiO2 Ratio 438 Oxygen Delivery Method Room Air Oxygen Flow Rate 0 Narrative Exam Narrative: Gen: NAD, sitting comfortably in bed, appears well, alert, talkative CV: RRR, no murmurs Resp: clear to auscultation bilaterally, no wheezes or crackles Abd: soft, nontender, nondistended Ext: no edema Objective Labs 02/15/25 04:30 02/15/25 04:30 Labs: Laboratory Results - last 24 hr 02/15/25 04:30 WBC 6.4 RBC 2.99 L Hgb 10.5 L Hct 30.6 L MCV 102.2 H MCH 35.0 H MCHC 34.3 RDW 15.3 H Plt Count 365 Neut % (Auto) 59.5 Lymph % (Auto) 18.2 L Mckean % (Auto) 18.0 H Eos % (Auto) 3.5 Baso % (Auto) 0.8 Neut # (Auto) 3800 Lymph # (Auto) 1200 Mckean # (Auto) 1100 H Eos # (Auto) 200 Baso # (Auto) 0 Sodium 133 L Potassium 4.5 Chloride 101 Carbon Dioxide 26 BUN 13 Creatinine 0.72 Estimated GFR > 60 BUN/Creatinine Ratio 18.1 Glucose 110 H Calcium 9.6 Magnesium 1.2 L Total Bilirubin 0.2 AST 48 ALT 43 Alkaline Phosphatase 80 Total Protein 6.5 Albumin 3.2 L Globulin 3.3 Albumin/Globulin Ratio 1.0 [facility] Medical History (Updated 02/12/25 @ 09:46 by Miguel Ángel Bruce MD) Coffee ground emesis Pancreatitis Alcohol withdrawal delirium Alcoholism in remission Acute upper GI bleed Mixed hyperlipidemia History of kidney disease as a child (10/09/16) 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) Essential hypertension (10/09/16) Surgical History Hx of appendectomy (1977) Hx of hernia repair (1999) History of nephrectomy (1977) History of unilateral nephrectomy (10/09/16) Family History Father Congestive heart failure Diabetes mellitus COPD (chronic obstructive pulmonary disease) Mother Hypertension Diabetes mellitus Cancer Other Alcoholism Social History marital status: household members: significant other and family occupational status: previously employed leisure activities: exercise Smoking Status: Current some day smoker Tobacco: How many years used: 50 alcohol intake: current substance use type: marijuana caffeine: Yes Type(s) of exercise: walking Assessment & Plan Assessment & Plan narrative: 64-year-old male with hypertension, hyperlipidemia, alcohol use disorder, COPD/asthma, BPH w/obs LUTS, pulmonary embolism admitted for acute alcohol withdrawal. 1. Moderate to severe acute alcohol withdrawal syndrome Last drink 02/07. Weaned from precedex and transitioned to PO librium. No supplemental Ativan required, CIWA remains very low. Expresses desire to try rehab for his alcoholism. - Taper Librium to 12.5mg BID today - Ativan prn per CIWA protocol 2. Acute metabolic encephalopathy due to alcohol withdrawal (resolved) Confused and disoriented on admission. Stable now and at baseline, however still very weak. Requiring 1-2 person assist for mobilization, will need physical rehab prior to entering alcohol treatment program. - PT/OT consulted, requires SNF/rehab placement - Reorient as needed 3. Moderate to severe malnutrition due to alcoholism - Dietitian consultation - B12, folic acid replacement 4. Alcohol-induced hepatitis with liver inflammation elevation: Resolved 5. Pancreatic mass: Stable over time. Lipase is not elevated currently does not appear to have ongoing pancreatitis. - f/u outpatient GI referral 6. Pulmonary emboli: Diagnosed in September of this year, on Eliquis BID. Follow-up CTA 11/19/24 shows resolution. Appears that he is still on anticoagulation at this time per family's report. - Continue Eliquis - Discontinue at d/c 7. Hyponatremia: Stable, mild - Continue to trend 8. Hypokalemia: Stable 9. Hypomagnesemia: - Replace as per protocol 10. Hypercalcemia: Stable 11. Hypertension: BPs variable - Continue home lisinopril - Consider beta-choco as well and/or clonidine for withdrawal if remaining elevated 12. BPH - Continue home flomax 13. Right knee pain: xray showing arthritic changes - Continue Tylenol PRN for pain Diet: Regular GI ppx: H2 choco DVT ppx: Eliquis Code: FULL PCP: Teo MDM: Spouse Dispo: Pending appropriate placement in SNF/rehab. Care management working on finding location. Time-Based Coding :: [TOTAL MINUTES] spent with patient and on the chart (including review of chart, obtaining history, exam, reviewing outside data, placing orders, documenting exam and treatment plan, and counseling patient) on [DATE]. 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
--- NOTE | 2025-02-15 13:54 | PT-IP ANOTE ---
PT checks on pt twice this afternoon for treatment and he con't to be eating (greater than 30 min). Con't PT efforts.
--- NOTE | 2025-02-15 14:33 | OT.IP.TRT ---
Current Diagnoses Unspecified protein-calorie malnutrition (02/09/25) Hypomagnesemia (02/09/25) Hypercalcemia (02/09/25) Hypo-osmolality and hyponatremia (02/09/25) Hypokalemia (02/09/25) Alcohol use, unspecified with withdrawal with perceptual disturbance (02/09/25) Metabolic encephalopathy (02/09/25) Essential (primary) hypertension (02/09/25) Other pulmonary embolism without acute cor pulmonale (02/09/25) Alcoholic hepatitis without ascites (02/09/25) Other specified diseases of pancreas (02/09/25) Benign prostatic hyperplasia with lower urinary tract symptoms (02/09/25) Occupational Therapy Treatment Note M2 OT-IP Current Condition Start: 02/12/25 11:07 Freq: Status: Active Protocol: Document 02/12/25 11:07 [facility] (Rec: 02/12/25 11:20 [facility] Desktop) Occupational Therapy Current Condition Current Condition Evaluation Date 02/12/25 Treatment Diagnosis ETOH withdraw, decreased coordination and generalized weakness Diagnosis Onset Date 02/09/25 M3 OT- IP Subjective and Pain Start: 02/12/25 11:07 Freq: Status: Active Protocol: Document 02/15/25 14:21 [facility] (Rec: 02/15/25 14:33 [facility] Desktop) OT- Subjective Occupational Therapy Visit Type Type Treatment Note Visit Start Time 12:45 Visit Stop Time 14:11 Notes Split tx, [id number] and [id number] Occupational Therapy Visit Comments Patient Comments Pt agreed to get up to recliner for lunch and to continue OT tx following meal Patient/Caregiver To get better. Goals OT Pain Assessment Pain When Pain Assessed At Rest Pain Present Pain Present Denied Pain M4 OT- IP ADL's Start: 02/12/25 11:07 Freq: Status: Active Protocol: Document 02/15/25 14:21 [facility] (Rec: 02/15/25 14:33 [facility] Desktop) OT HED-Aivk-Hahetam General Evaluation Self-Feeding Ability Standby Assistance Areas Needing Opening Containers Assistance Comments OT Self-Feeding Pt required OT to open his milk container, otherwise, Comments pt was I with all components of feeding task. OT ADL-Grooming General Evaluation Grooming Ability Contact Guard Assistance Areas Needing Face Washing Assistance Comments OT Grooming Comments Pt performs sink side while leaning forearms on the counter. Pt washes his hands in the same manner with CGA for balance and safety. OT ADL-Oral Care Comments Oral Care Comments not observed OT ADL-Dressing Comments OT Dressing Comments Pt a bit shaky and will need assist for LB dressing needs at this time. OT ADL-Toileting General Evaluation Toileting Ability Minimal Assistance Areas Needing Manage Clothing Assistance Comments OT Toileting Pt was able to pull his brief down to his ankles, but Comments needs assist getting it off of his feet. Pt manages toileting hygiene without assist. Pt requires min A to start new brief on B LEs. Pt pulls it up from his ankles up over his hips with CGA for his balance. OT ADL-Bathing Comments OT Bathing Comments Pt will need assist at this time. M5 OT- IP IADL's Start: 02/12/25 11:07 Freq: Status: Active Protocol: Document 02/12/25 11:07 [facility] (Rec: 02/12/25 11:20 [facility] Desktop) OT-Instrumental Activities of Daily Living Home Safety Awareness Home Safety Comments Pt slow to respond to questions and to follow commands at this time. Medication Management Medication Pt at this time will benefit from at least supervision. Management Comments Money Management Money Management Pt will bene fit from help. Comments Meal Preparation Meal Preparation Pt will need assist. Comments Conductor/Engineer Conductor/Engineer Pt will need assist. Comments M6 OT- IP Functional Cognition Start: 02/12/25 11:07 Freq: Status: Active Protocol: Document 02/12/25 11:07 [facility] (Rec: 02/12/25 11:20 [facility] Desktop) Cognitive Factors Limiting Selfcare Function Cognitive Ability Level of Alertness Alert Patient Orientation Name,Age,Birthday,Month,Year,Place Attention Span Capable of Focused Attention,Capable of Sustained Ability Attention Ability to Follow Able to Follow One Step Commands Commands Cognitive Comments Cognitive Assessment Pt increased time to follow commands and process. Comments OT- Vision and Hearing OT- Hearing Assessment OT- Hearing WFL Assessment OT- Vision Assessment Visual Acuity Glasses For Reading Visual Attentiveness WFL Occular Pursuits WFL M7 OT- IP Mobility and Balance Start: 02/12/25 11:07 Freq: Status: Active Protocol: Document 02/15/25 14:21 [facility] (Rec: 02/15/25 14:33 [facility] Desktop) OT- Bed Mobility Assessment Supine to Sit Supine to Sit Assist Standby Assistance OT-Transfer Assessment Sit to and From Stand Sit to and from Contact Guard Assistance,Minimal Assistance,1 Person Stand Assistance Transfers Transfer Ability Contact Guard Assistance,Minimal Assistance,1 Person Assistance Technique Transfer Destination Bed,Chair,Toilet Transfer Technique Stand Step Pivot Devices Transfer Assistive Gait Belt,Front Wheeled Walker Devices Comments Mobility Comments Pt needs vcs to stand tall, to stay close to his FWW, and to reach back for chair. Pt initiates sitting before he is backed up to the chair, demonstrating decreased safety awareness. Pt is very unsteady on his feet and tends to lean posteriorly on his heals. OT- Gait Assessment Gait Gait Assistance Contact Guard Assist Required: Distance (Feet) 20 Comments Gait Ability Pt needs vcs to stay within his FWW when ambulating, Comments otherwise pt has it far in front of him, making it a fall risk. OT- Balance Assessment Sitting Balance and Reactions Static Sitting Fair Balance Ability Dynamic Sitting Fair Balance Ability Standing Balance and Reactions Static Standing Poor Balance Ability Dynamic Standing Poor Balance Ability M8 OT- IP Objective Assessments Start: 02/12/25 11:07 Freq: Status: Active Protocol: Document 02/12/25 11:07 [facility] (Rec: 02/12/25 11:20 [facility] Desktop) OT Gross Range of Motion Upper Extremity Range of Motion Assessment Bilaterally Impaired ROM Impairments BUE 0-100, Noted bruising on left side of his body. OT Strength Upper Extremity Strength Assessment Bilaterally Impaired Comments Strength Comments BUE 4/5 to 4+/5 M9 OT- IP Assessment and Plan Start: 02/12/25 11:07 Freq: Status: Active Protocol: Document 02/15/25 14:21 [facility] (Rec: 02/15/25 14:33 [facility]) OT Summary Assessment and Plan Potential Rehabilitation Good Potential Analytic Complexity Moderate at Evaluation Summary OT Impairments Pain,Range of Motion,Strength,Balance,Functional Cognition,Functional Mobility,Self-Feeding,Grooming, Dressing,Toileting,Bathing,Toilet Transfers,Shower Transfers,Activity Tolerance Progress Towards Slow Progress due to Pain,Slow Progress due to Medical Goals Issues,Slow Progress due to Activity Tolerance,Slow Progress due to Cognition Assessment Summary Pt needed some encouragement to initially participate in skilled OT services today. However, after that he was willing and seemed to push himself. Pt demonstrates decreased safety awareness during functional t/fs and while ambulating, although, he does correct the unsafe behaviors with regular vcs. Today, pt completed toileting with MIN A and sink side ADLs with CGA. Pt left reclined in bed, with bed exit alarm set, and all needs in reach. When pt is medically able, OT recommends d/c home with 24/7 assist. Cont per established POC. Goals Self-Feeding Goal Independent Grooming Goal Independent Dressing Goal Independent Toileting Goal Independent Bathing Goal Independent Toilet Transfer Goal Independent Shower Transfer Goal Independent Days to Meet Goals 15 Frequency of Treatment Other frequency 5x/week Treatment Plan OT Treatment Plan ADL Training,Functional Cognition Training,Functional Mobility,Patient/Family Education,Discharge Planning Discharge Recommendations OT Discharge Home with 24/7 Assist Available,Home Health,SNF Rehab, Recommendations Home vs SNF Home Equipment Needs FWW Transportation Needs Wheelchair/Cabulance at Discharge
--- NOTE | 2025-02-15 16:09 | CM.DPNOTE ---
DCP Note MONITOR TECH reviewed EMR per chart, OT rec SNF vs home. Pt unable to meet with PT today. MONITOR TECH sent updated clincials to [facility] at [facility]. acceptance pending. MONITOR TECH updated dtr María on phone. dtr appreciative. P: dc SNF pending accepting facility/auth. will continue to follow closely for DCP Coordination YENIFER Patel
[2025-02-15] MEDS: ATORVASTATIN 20 MG TABLET 40 MG PO (21:21)
[2025-02-15] MEDS: FAMOTIDINE 20 MG TABLET PO (21:21)
[2025-02-16] VITALS (30 sets, daily range): BP systolic 107–143; BP diastolic 66–87; PULSE 93–111; RESP 10–31; TEMP 36.4–37.3; O2SAT 70–99
[2025-02-16 04:41] LABS: Blood Urea Nitrogen 13 mg/dL (9-20); Calcium 10.1 mg/dL (8.4-10.2); Carbon Dioxide 27 mmol/L (22-32); Chloride 101 mmol/L (98-107); Estimated Glomerular Filt Rate > 60 mL/min (>60); Glucose 121 mg/dL (70-99); HEMOLYSIS < 15 (0-50); Potassium 4.8 mmol/L (3.4-5.1); Sodium 135 mmol/L (137-145)
[2025-02-16 04:43] LABS: Magnesium 1.3 mg/dL (1.6-2.3)
--- NOTE | 2025-02-16 06:57 | PC.NURSE ---
Mice Raiser Note-Patient is A/Ox 2-3, uses call light most of the time, bed alarm on. CIWA 1. Voiding frequently, total 1550ml clear urine. States it menezes order obtained for UAC-sent. VSS.
--- NOTE | 2025-02-16 09:30 | OT.IP.TRT ---
Current Diagnoses Unspecified protein-calorie malnutrition (02/09/25) Hypomagnesemia (02/09/25) Hypercalcemia (02/09/25) Hypo-osmolality and hyponatremia (02/09/25) Hypokalemia (02/09/25) Alcohol use, unspecified with withdrawal with perceptual disturbance (02/09/25) Metabolic encephalopathy (02/09/25) Essential (primary) hypertension (02/09/25) Other pulmonary embolism without acute cor pulmonale (02/09/25) Alcoholic hepatitis without ascites (02/09/25) Other specified diseases of pancreas (02/09/25) Benign prostatic hyperplasia with lower urinary tract symptoms (02/09/25) Occupational Therapy Treatment Note M2 OT-IP Current Condition Start: 02/12/25 11:07 Freq: Status: Active Protocol: Document 02/12/25 11:07 [facility] (Rec: 02/12/25 11:20 [facility] Desktop) Occupational Therapy Current Condition Current Condition Evaluation Date 02/12/25 Treatment Diagnosis ETOH withdraw, decreased coordination and generalized weakness Diagnosis Onset Date 02/09/25 M3 OT- IP Subjective and Pain Start: 02/12/25 11:07 Freq: Status: Active Protocol: Document 02/16/25 09:31 [facility] (Rec: 02/16/25 09:40 [facility] Desktop) OT- Subjective Occupational Therapy Visit Type Type Treatment Note Visit Start Time 08:58 Visit Stop Time 09:30 Occupational Therapy Visit Comments Patient Comments Pt agreed to get up to brush his teeth. Patient/Caregiver TO get better. Goals OT Pain Assessment Pain When Pain Assessed At Rest Pain Present Pain Present Denied Pain M4 OT- IP ADL's Start: 02/12/25 11:07 Freq: Status: Active Protocol: Document 02/16/25 09:31 [facility] (Rec: 02/16/25 09:40 [facility] Desktop) OT ADL-Grooming General Evaluation Grooming Ability Standby Assistance Comments OT Grooming Comments Pt heavily leans on the counter for his balance to do oral care and grooming needs. OT ADL-Oral Care General Eval Oral Care Ability Standby Assistance Areas of Assistance Retrieving/Set-Up of Items Comments Oral Care Comments Able to do while standing with close SBA. OT ADL-Dressing General Eval Lower Body Dressing Standby Assistance Ability Comments OT Dressing Comments Pt able to chin/doff his socks while seated with increased time. OT ADL-Toileting Comments OT Toileting Not performed. Comments OT ADL-Bathing Comments OT Bathing Comments Pt will need assist. M5 OT- IP IADL's Start: 02/12/25 11:07 Freq: Status: Active Protocol: Document 02/12/25 11:07 [facility] (Rec: 02/12/25 11:20 [facility] Desktop) OT-Instrumental Activities of Daily Living Home Safety Awareness Home Safety Comments Pt slow to respond to questions and to follow commands at this time. Medication Management Medication Pt at this time will benefit from at least supervision. Management Comments Money Management Money Management Pt will bene fit from help. Comments Meal Preparation Meal Preparation Pt will need assist. Comments Finisher Plate Finisher Plate Pt will need assist. Comments M6 OT- IP Functional Cognition Start: 02/12/25 11:07 Freq: Status: Active Protocol: Document 02/16/25 09:31 [facility] (Rec: 02/16/25 09:40 [facility] Desktop) Cognitive Factors Limiting Selfcare Function Cognitive Comments Cognitive Assessment Pt able to follow commands better and slight increased Comments time to process now. Pt would benefit from SLUMS. M7 OT- IP Mobility and Balance Start: 02/12/25 11:07 Freq: Status: Active Protocol: Document 02/16/25 09:31 [facility] (Rec: 02/16/25 09:40 [facility] Desktop) OT- Bed Mobility Assessment Supine to Sit Supine to Sit Assist Standby Assistance OT-Transfer Assessment Sit to and From Stand Sit to and from Contact Guard Assistance Stand Transfers Transfer Ability Contact Guard Assistance,Minimal Assistance,Moderate Assistance Technique Transfer Destination Bed,Chair Transfer Technique Stand Step Pivot Devices Transfer Assistive Gait Belt,Front Wheeled Walker Devices Comments Mobility Comments Pt CGA to stand and able to walk to the sink with CGA and on the way back loss of balance and needing MODA to recover his balance as pt leans back on his heels. OT- Balance Assessment Sitting Balance and Reactions Static Sitting Good Balance Ability Dynamic Sitting Fair Balance Ability Standing Balance and Reactions Static Standing Poor Balance Ability Dynamic Standing Poor Balance Ability Comments Other Balance Tests/ Pt very unsteady on his feet and having to lean on the Deviations/Treatment counter for grooming needs and to put his hair up. Pt : also leans on his heels when up on his feet. AT pt tires more is more unsteady on his feet and needing more assist for his balance. M8 OT- IP Objective Assessments Start: 02/12/25 11:07 Freq: Status: Active Protocol: Document 02/12/25 11:07 [facility] (Rec: 02/12/25 11:20 [facility] Desktop) OT Gross Range of Motion Upper Extremity Range of Motion Assessment Bilaterally Impaired ROM Impairments BUE 0-100, Noted bruising on left side of his body. OT Strength Upper Extremity Strength Assessment Bilaterally Impaired Comments Strength Comments BUE 4/5 to 4+/5 M9 OT- IP Assessment and Plan Start: 02/12/25 11:07 Freq: Status: Active Protocol: Document 02/16/25 09:31 [facility] (Rec: 02/16/25 09:40 [facility] Desktop) OT Summary Assessment and Plan Potential Rehabilitation Good Potential Analytic Complexity Moderate at Evaluation Summary OT Impairments Pain,Range of Motion,Strength,Balance,Functional Cognition,Functional Mobility,Self-Feeding,Grooming, Dressing,Toileting,Bathing,Toilet Transfers,Shower Transfers,Activity Tolerance Progress Towards Slow Progress due to Medical Issues,Slow Progress due Goals to Activity Tolerance Assessment Summary Pt still unsteady on his feet and having loss of balance while walking back from the sink with FWW. Pt may benefit from short skilled rehab as a high fall risk at this time. Therefore suggest SNF versus if able to improve more home with / assist and home health. Goals Self-Feeding Goal Independent Grooming Goal Independent Dressing Goal Independent Toileting Goal Independent Bathing Goal Independent Toilet Transfer Goal Independent Shower Transfer Goal Independent Days to Meet Goals 15 Frequency of Treatment Other frequency 5x/week Treatment Plan OT Treatment Plan ADL Training,Functional Cognition Training,Functional Mobility,Patient/Family Education,Discharge Planning Discharge Recommendations OT Discharge SNF Rehab,Home vs SNF Recommendations Home Equipment Needs FWW Transportation Needs Wheelchair/Cabulance at Discharge
[2025-02-16] MEDS: MAGNESIUM CHLORIDE 64 MG TABLET 128 MG PO (09:43)
[2025-02-16] MEDS: FOLIC ACID 1 MG TABLET PO (09:44)
[2025-02-16] MEDS: TAMSULOSIN 0.4 MG CAPSULE PO (09:44)
[2025-02-16] MEDS: SODIUM CHLORIDE 0.9% FLUSH 10 ML IV ×2 (09:44→21:35)
[2025-02-16] MEDS: MULTIVITAMIN 1 TABLET 1 TAB PO (09:44)
[2025-02-16] MEDS: APIXABAN 5 MG TABLET PO ×2 (09:44→21:34)
[2025-02-16] MEDS: THIAMINE 100 MG TABLET PO (09:46)
--- NOTE | 2025-02-16 12:16 | PT.IPTN ---
Current Diagnoses Unspecified protein-calorie malnutrition (02/09/25) Hypomagnesemia (02/09/25) Hypercalcemia (02/09/25) Hypo-osmolality and hyponatremia (02/09/25) Hypokalemia (02/09/25) Alcohol use, unspecified with withdrawal with perceptual disturbance (02/09/25) Metabolic encephalopathy (02/09/25) Essential (primary) hypertension (02/09/25) Other pulmonary embolism without acute cor pulmonale (02/09/25) Alcoholic hepatitis without ascites (02/09/25) Other specified diseases of pancreas (02/09/25) Benign prostatic hyperplasia with lower urinary tract symptoms (02/09/25) Physical Therapy Treatment Note M2 PT-IP Current Condition Start: 02/11/25 15:15 Freq: NEEDED Status: Active Protocol: Document 02/12/25 10:27 DLM (Rec: 02/12/25 10:45 DLM Desktop) Physical Therapy Current Condition Current Condition Evaluation Date 02/12/25 Treatment Diagnosis ETOH w/d, impaired balance and coordination Onset Date 02/09/25 M3 PT-IP Subjective Start: 02/11/25 15:15 Freq: NEEDED Status: Active Protocol: Document 02/16/25 12:16 DLM (Rec: 02/16/25 12:44 DLM Desktop) Subjective Physical Therapy Visit Type Type Treatment Note Visit Start Time 11:53 Visit Stop Time 12:16 Notes 23 min Physical Therapy Visit Comments Patient Comments He reports his hip and knee are better today. Patient Goals Get better Therapy Pain Assessment Pain When Pain Assessed During Mobility Pain Present Pain Present Denied Pain Location Left Knee Intensity 0 Left Hip Intensity 0 M4 PT-IP Mobility and Gait Start: 02/11/25 15:15 Freq: NEEDED Status: Active Protocol: Document 02/16/25 12:16 DLM (Rec: 02/16/25 12:44 DLM Desktop) PT-Transfer Assessment Sit to and From Stand Sit to and from Minimal Assistance,Use of Upper Extremities Stand Equipment Transfer Assistive Gait Belt,Front Wheeled Walker Device Transfers Transfer Destination Chair Transfer Technique Stand Step Pivot Transfer Ability Level of Assist Minimal Assistance Comments Mobility Comments Pt sitting up in the recliner and wants to stay up. Set pt up for lunch after activity. Chair alarm in use. Gait Assessment Gait Gait Assistance Minimum Assistance Required: Distance (Feet) 85 Assistive Devices Assistive Device Gait Belt,Front Wheeled Walker Gait Deviations General Gait Pattern Ataxic,Decreased Stride Length,Decreased Feet Clearance Factors Limiting Gait Function Factors Limiting Decreased Activity Tolerance,Incoordination,Poor Gait Function Balance Comments Gait Comments he can take larger functional steps for short distances but can not maintain them during gait, most strides are short, improving feet clearance, pt often looking at feet during gait so posture is mildly flexed with FWW, decreased coordination becomes more challenging for him when he is negotiating around obstacles PT-Balance Assessment Sitting Balance and Reactions Static Sitting Good Balance Ability Dynamic Sitting Good Balance Ability Standing Balance and Reactions Static Standing Fair Balance Ability Dynamic Standing Fair Balance Ability Device Used FWW Comments Other Balance Tests/ difficulty with anterior weight shift from sit to stand Deviations/Treatment , using UE's to assist, mild to moderate ant/post sway : standing without UE support M5 PT-IP Objective Assessments Start: 02/11/25 15:15 Freq: NEEDED Status: Active Protocol: Document 02/12/25 10:27 DLM (Rec: 02/12/25 10:45 DLM Desktop) Orientation Orientation/Cognition Level of Alertness Alert Orientation Name,Month,Year,Place,Situation Comments he is not attempting unsafe activity at this time, he has limited awareness of his current deficits Gross Range of Motion Upper Extremity ROM Assessment Within Functional Limits Lower Extremity ROM Assessment Within Functional Limits Strength Upper Extremity Strength Assessment Within Functional Limits Lower Extremity Strength Assessment Within Functional Limits Coordination Assessment Gross Coordination Gross Coordination Impaired Assessment Finger to Nose Test Moderate Impairment Foot Tapping Test Moderate Impairment Sensation Assessment Sensation Gross Sensation WNL Comments Sensation Comments he denies numbness/tingling Muscle Tone Muscle Tone WNL Yes M6 PT-IP Treatment Start: 02/11/25 15:15 Freq: NEEDED Status: Active Protocol: Document 02/16/25 12:16 DLM (Rec: 02/16/25 12:44 DLM Desktop) Physical Therapy Treatment Exercises Exercises Ankle Pumps,Seated Knee Flexion/Extension Education Education Provided Safety Other Treatments Other Treatment Standing balance training: static standing without UE Performed support, static standing with head motions, standing marching with FWW to improve functional weight shifting and feet clearance M7 PT-IP Assessment and Plan Start: 02/11/25 15:15 Freq: NEEDED Status: Active Protocol: Document 02/16/25 12:16 DLM (Rec: 02/16/25 12:44 DLM Desktop) PT Summary Assessment and Plan Summary Impairments Pain,Balance,Coordination,Cognition,Bed Mobility, Transfers,Gait,Activity Tolerance Progress Towards Progressing Toward Goals Goals Assessment Summary Donavan continues to demonstrate slow but steady progress in therapy. His standing balance and coordination are still impaired. His ability to shift his body weight in standing is improving which allows better functional steps for gait. He can only take larger steps for short distances at a time. He is pleasant and cooperative with therapy. He shows good effort with all activity. He is able to follow verbal instructions and his awareness of his deficits is improving. Continue to recommend SNF rehab to assist with his functional recovery including gait and stairs. Goals Bed Mobility Goal Independent Transfer Goal Standby Assistance Gait Goal Standby Assistance,Front Wheel Walker Gait Distance 150 feet Other Goals up/down 3 steps with rail and SBA Days to Meet Goals 5 Frequency of Treatment Frequency Of Once a Day Treatment Treatment Plan Physical Therapy Bed Mobility Training,Transfer Training,Gait Training, Treatment Plan Therapeutic Exercise,Balance Retraining,Discharge Planning,Neuromuscular Re-ed,Coordination Retraining Precautions Other Precautions seizure precautions, fall risk Recommendations To Nursing Amount of Assist 1 Person Assist Needed Discharge Recommendations PT Discharge SNF Rehab Recommendations Transportation Needs Private Vehicle,Wheelchair/Cabulance at Discharge - PT assist 1
--- NOTE | 2025-02-16 13:09 | P.PN_ITS ---
Subjective Subjective Date Patient Seen: 02/16/25 Time Patient Seen: 13:09 Interval history: Patient is seated at bedside chair eating lunch. Alert and oriented, no difficulty with basic information recall. Denies withdrawal symptoms at this time, waiting for insurance authorization for discharge to appropriate facility. Exam Vital Signs (past 8 hours): - 02/16/25 06:00 02/16/25 07:00 02/16/25 08:00 Temperature Pulse Rate 100 H 103 H 101 H Respiratory Rate 20 18 15 Blood Pressure Pulse Oximetry 02/16/25 08:41 02/16/25 08:41 02/16/25 09:00 Temperature Pulse Rate 106 H 109 H Respiratory Rate 18 31 H Blood Pressure 115/73 Pulse Oximetry 02/16/25 09:13 02/16/25 09:13 02/16/25 09:58 Temperature 98.7 F Pulse Rate 108 H Respiratory Rate Blood Pressure 108/73 Pulse Oximetry 86 L Fraction of Inspired Oxygen 21 SaO2/FiO2 Ratio 438 Oxygen Delivery Method Room Air Oxygen Flow Rate 0 Narrative Exam Narrative: Gen: nad, sitting comfortably in chair, alert, talkative CV: rrr, no m/g/r Resp: ctab, no wheezes/rhonchi Abd: soft, ntnd Ext: no edema Objective Labs 02/15/25 04:30 02/16/25 04:00 Labs: Laboratory Results - last 24 hr 02/16/25 04:00 Sodium 135 L Potassium 4.8 Chloride 101 Carbon Dioxide 27 BUN 13 Creatinine 0.72 Estimated GFR > 60 BUN/Creatinine Ratio 18.1 Glucose 121 H Calcium 10.1 Magnesium 1.3 L [facility] Medical History (Updated 02/12/25 @ 09:46 by Miguel Ángel Bruce MD) Coffee ground emesis Pancreatitis Alcohol withdrawal delirium Alcoholism in remission Acute upper GI bleed Mixed hyperlipidemia History of kidney disease as a child (10/09/16) 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) Essential hypertension (10/09/16) Surgical History Hx of appendectomy (1977) Hx of hernia repair (1999) History of nephrectomy (1977) History of unilateral nephrectomy (10/09/16) Family History Father Congestive heart failure Diabetes mellitus COPD (chronic obstructive pulmonary disease) Mother Hypertension Diabetes mellitus Cancer Other Alcoholism Social History marital status: household members: significant other and family occupational status: previously employed leisure activities: exercise Smoking Status: Current some day smoker Tobacco: How many years used: 50 alcohol intake: current substance use type: marijuana caffeine: Yes Type(s) of exercise: walking Assessment & Plan Assessment & Plan narrative: 64-year-old male with hypertension, hyperlipidemia, alcohol use disorder, COPD/asthma, BPH w/obs LUTS, pulmonary embolism admitted for acute alcohol withdrawal. 1. Moderate to severe acute alcohol withdrawal syndrome Last drink 02/07. Weaned from precedex and transitioned to PO librium. No supplemental Ativan required, CIWA remains very low. Expresses desire to try rehab for his alcoholism. - Taper Librium to 10mg daily starting tomorrow (02/17) - Ativan prn per CIWA protocol 2. Acute metabolic encephalopathy due to alcohol withdrawal (resolved) Confused and disoriented on admission. Stable now and at baseline, however still very weak. Requiring 1-2 person assist with walker for mobilization, will need physical rehab prior to entering alcohol treatment program. - PT/OT consulted, requires SNF/rehab placement - Reorient as needed 3. Moderate to severe malnutrition due to alcoholism - Dietitian consultation - B12, folic acid replacement 4. Alcohol-induced hepatitis with liver inflammation elevation: Resolved 5. Pancreatic mass: Stable over time. Lipase is not elevated currently does not appear to have ongoing pancreatitis. - f/u outpatient GI referral 6. Pulmonary emboli: Diagnosed in September of this year, on Eliquis BID. Follow-up CTA 11/19/24 shows resolution. Appears that he is still on anticoagulation at this time per family's report. - Continue Eliquis - Discontinue at d/c 7. Hyponatremia: Stable, mild - Trend 8. Hypokalemia: Resolved 9. Hypomagnesemia: - Replete prn 10. Hypercalcemia: Resolved 11. Hypertension: BPs variable - Continue home lisinopril - Consider beta-choco as well and/or clonidine for withdrawal if remaining elevated 12. BPH - Continue home flomax 13. Right knee pain: XR showing arthritic changes - Tylenol PRN for pain Diet: Regular GI ppx: H2 choco DVT ppx: Eliquis Code: FULL PCP: Teo MDM: Spouse Dispo: Pending appropriate placement in SNF/rehab. Care management working on insurance authorization. Time-Based Coding :: 25 minutes spent with patient and on the chart (including review of chart, obtaining history, exam, reviewing outside data, placing orders, documenting exam and treatment plan, and counseling patient) on 02/16/2025. Quality VTE Deep Vein Thrombosis/Pulmonary Embolism Present on Admission: No [facility] PROFEE Fire Alarm Technician Document charge(s): Yes Charge Codes Subsequent inpatient/observation care: [id number]
[2025-02-16] MEDS: MAGNESIUM OXIDE 400 MG TABLET PO (13:33)
--- NOTE | 2025-02-16 13:44 | PC.NURSE ---
Addendum entered by Marlene Cortez RN 02/16/25 14:42: Patient back to bed to nap. He is alert and oriented x3, more steady on feet with walker and gaitbelt. Original Note: Patient denies pain. Up to the bathroom with gaitbelt and walker. He is a bit unsteady on feet but has improved since a couple of days ago. His CIWA score has been 0. He is up to the chair and has been sitting up since this morning. He is resting in his chair.
--- NOTE | 2025-02-16 14:07 | CM.DPNOTE ---
Addendum entered by YENIFER Patel 02/16/25 16:08: per Idalmis at [facility], got Carb[employer] ins auth, transport set for tomorrow 11am. RN report number [phone]. PAPER COATING SUPERVISOR updated provider. PAPER COATING SUPERVISOR put PASRR in chart for provider to sign tonight. provider will work on dc meds/scripts tonight. PAPER COATING SUPERVISOR attempted to update pt, sleeping soundly. PAPER COATING SUPERVISOR lvm with Dtr María on the DCP. PLAN dc tomorrow to [facility] tomorrow 11am. CM team will continue to follow closely for DCP coordination SL Original Note: DCP note PAPER COATING SUPERVISOR reviewed EMR per Teo, medically cleared to dc to SNF. per Idalmis at [facility], submitted for carbajal auth. auth pending. PAPER COATING SUPERVISOR updated pt. pt preference remains dc to SNF in order to increase strength to go to INPT ETOH rehab. PAPER COATING SUPERVISOR Completed PASRR, provider signature needed. behind FS P: dc to [facility] pending Carbajal auth. transport pending. CM team will continue to follow closely for DCP coordination YENIFER Patel
--- NOTE | 2025-02-16 15:20 | DIET.PN1 ---
Dietary Progress Note Assessment: f/u PO intakes 75-100%. Meeting estimated energy needs per DFM review of meals ordered. No further interventions needed. Ht: 170.18 cm Wt: 58.559 kg BMI: 20.2 Last BM: 02/16/25 (02/16/25 11:36) MNA: 6 Ar Score: 17 Diet: 02/11/25 Dinner General (Regular) Diet Diet Modifications: Food Texture: Level 7 - Regular Liquid Consistency: Level 0 - Thin Nutrition Percent Meal Consumed 100% 02/15/25 17:40 Percent Meal Consumed 100% 02/15/25 14:10 Percent Meal Consumed 100% 02/15/25 08:54 Percent Meal Consumed 100% 02/14/25 18:00 Labs: RBC 2.99 X10^6/uL (4.5-5.9) L 02/15/25 04:30 Hgb 10.5 g/dL (13.5-17.5) L 02/15/25 04:30 Hct 30.6 % (41-53) L 02/15/25 04:30 Creatinine 0.72 mg/dL (0.66-1.25) 02/16/25 04:00 Electronically Signed by: Guerda Ellis 02/16/25 15:20 Clinical Dietitian [address] [address]
[2025-02-16] MEDS: FAMOTIDINE 20 MG TABLET PO (21:34)
[2025-02-16] MEDS: ATORVASTATIN 20 MG TABLET 40 MG PO (21:34)
[2025-02-17 04:17] VITALS: PULSE 104; O2SAT 96
[2025-02-17 04:18] VITALS: BP 123/74; PULSE 105; O2SAT 96
[2025-02-17 05:23] LABS: Magnesium 1.5 mg/dL (1.6-2.3)
--- NOTE | 2025-02-17 07:38 | PM.DS.IH.1 ---
History of Present Illness History of Present Illness Date Patient Seen: 02/17/25 Time Patient Seen: 07:45 Chief complaint: alcohol withdrawals Narrative: Patient is a 64-year-old male with a history of alcohol misuse disorder going through acute withdrawal history is obtained from patient's family as patient is unable to provide a concise history in addition to his alcohol use he has a history of pulmonary emboli in September on anticoagulation nicotine dependence COPD hypertension hyperlipidemia BPH. Patient seen and evaluated in the emergency department patient is restless and agitated. Patient is not able to provide a good history. On discussion with patient's daughter who provides the history states that he was in the emergency department a few days ago. During this evaluation he had complaints of abdominal pain and flank pain. In bruising on his skin. In the emergency department he had a CT scan laboratory testing and was discharged home with a lidocaine patch due to musculoskeletal pain. He was encouraged to quit drinking. At the time of that emergency room he had some mild withdrawal symptoms. Was discharged home. Patient comes back today because of family noticing that he has had increased difficulty with delirium seeing things that are not there. His drinking has worsened then he tried to stop. And were concerned and brought him in because of his delirium tremors and confusion. On recent review of his records, of note his white blood cell count today is normal hemoglobin is 11.3 platelet count is 155. Sodium is 128. Creatinine is 1.29 glucose is 120 magnesium is low at 1.1 AST are 102 and 77 lipase is normal. CK total is mildly elevated at [address] scan of chest having him pelvis done on his previous emergency room visit 2 days ago shows no traumatic finding history of asbestos exposure severe hepatic steatosis stable appearance of pancreatic head cystic changes diverticulosis and femoral head avascular necrosis. Discharge Providers Provider Date of admission: 02/09/25 16:08 Discharge Date: 02/17/25 Primary care physician: Miguel Ángel Bruce MD Consults: 02/09/25 12:00 Consult to FIELD SOFTWARE ENGINEER - Handbag Finisher Routine Comment: Handbag Finisher Consult needed for:: Substance abuse Comment: wants inpatient help for ETOH 02/09/25 18:11 Consult to Dietitian, Adult Routine Comment: Reason For Exam: etoh withdrawl 02/11/25 14:57 Consult to Occupational Therapy Evaluate & Treat Comment: Physician Instructions: Evaluate and treat Consult to Physical Therapy Evaluate & Treat Comment: Physician Instructions: Evaluate and Treat Discharge provider: Miguel Ángel Bruce MD Summary Hospital Course Discharge Diagnosis: #moderate to severe alcohol withdrawal syndrome #acute metabolic encephalopathy due to alcohol withdrawal #moderate to severe malnutrition due to alcoholism #alcohol induced hepatitis with liver inflammation #pancreatic mass #pulmonary emboli #hypertension #bph #right knee pain Hospital Course: Admitted for moderate to severe withdrawal with associated metabolic encephalopathy requiring Precedex sedation and PRN Ativan per [facility] protocol. He was eventually weaned from Precedex and transitioned to p.o. Librium, after which he was slowly weaned from 50 mg q.i.d. to a dose of 10 mg daily at time of discharge. Plan is to continue taper at 10 mg daily next 2 days then down to 5 mg daily for an additional 2 days before stopping. A number of electrolyte and nutritional derangements were addressed with appropriate supplementation during admission. At time of discharge patient is still requiring 1-2 person assist with walker to ambulate, transferring to SNF per PT recs for additional time to regain strength. Patient has indicated renewed desire to address his alcoholism and will hopefully transition to an alcohol treatment facility after discharge from SNF. Status at Discharge Cognitive/behavioral status at discharge: oriented Functional status at discharge: uses cane/walker Overall status at discharge: patient is progressing back to baseline Time Spent with Patient Time spent: Greater than 30 minutes Exam Vital Signs (past 8 hours): - 02/16/25 11:24 02/16/25 11:28 02/16/25 11:28 Temperature Pulse Rate 109 H 101 H Respiratory Rate 17 Blood Pressure 107/66 Pulse Oximetry 70 L Oxygen Flow Rate 02/16/25 12:00 02/16/25 13:00 02/16/25 13:00 Temperature 98.0 F Pulse Rate 102 H 110 H Respiratory Rate 21 27 H Blood Pressure Pulse Oximetry 96 Oxygen Flow Rate 0 02/16/25 14:00 02/16/25 15:00 02/16/25 16:00 Temperature Pulse Rate 109 H 97 H 98 H Respiratory Rate 22 18 Blood Pressure Pulse Oximetry Oxygen Flow Rate 02/16/25 16:27 02/16/25 16:27 02/16/25 17:00 Temperature 98.7 F Pulse Rate 101 H Respiratory Rate Blood Pressure 120/71 Pulse Oximetry 97 Oxygen Flow Rate 02/16/25 17:00 Temperature Pulse Rate 96 H Respiratory Rate Blood Pressure Pulse Oximetry Oxygen Flow Rate Fraction of Inspired Oxygen 21 SaO2/FiO2 Ratio 438 Oxygen Delivery Method Room Air Oxygen Flow Rate 0 Narrative Exam Narrative: Gen: nad, sitting comfortably in chair, alert, talkative CV: rrr, no m/g/r Resp: ctab, no wheezes/rhonchi Abd: soft, ntnd Ext: no edema Objective Labs 02/15/25 04:30 02/16/25 04:00 Labs: Laboratory Results - last 24 hr 02/16/25 04:00 Sodium 135 L Potassium 4.8 Chloride 101 Carbon Dioxide 27 BUN 13 Creatinine 0.72 Estimated GFR > 60 BUN/Creatinine Ratio 18.1 Glucose 121 H Calcium 10.1 Magnesium 1.3 L [facility] Medical History (Updated 02/12/25 @ 09:46 by Miguel Ángel Bruce MD) Coffee ground emesis Pancreatitis Alcohol withdrawal delirium Alcoholism in remission Acute upper GI bleed Mixed hyperlipidemia History of kidney disease as a child (10/09/16) 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) Essential hypertension (10/09/16) Surgical History Hx of appendectomy (1977) Hx of hernia repair (1999) History of nephrectomy (1977) History of unilateral nephrectomy (10/09/16) Family History Father Congestive heart failure Diabetes mellitus COPD (chronic obstructive pulmonary disease) Mother Hypertension Diabetes mellitus Cancer Other Alcoholism Social History marital status: household members: significant other and family occupational status: previously employed leisure activities: exercise Smoking Status: Current some day smoker Tobacco: How many years used: 50 alcohol intake: current substance use type: marijuana caffeine: Yes Type(s) of exercise: walking Discharge Assessment & Plan Assessment and Plan Assessment: 64-year-old male with hypertension, hyperlipidemia, alcohol use disorder, COPD/asthma, BPH w/obs LUTS, pulmonary embolism admitted for acute alcohol withdrawal. Plan of Treatment: 1. Moderate to severe acute alcohol withdrawal syndrome Last drink 02/07. Weaned from precedex and transitioned to PO librium. No supplemental Ativan required, CIWA remains very low. Expresses desire to try rehab for his alcoholism. - Continue Librium taper: 10mg daily (02/17-), then 5mg daily (02/19- 2. Acute metabolic encephalopathy due to alcohol withdrawal (resolved) Confused and disoriented on admission. Stable now and at baseline, however still very weak. Requiring 1-2 person assist with walker for mobilization. Discharge to SNF per PT recs for physical rehab prior to entering alcohol treatment program. 3. Moderate to severe malnutrition due to alcoholism - s/p B12, folic acid, thiamine replacement 4. Alcohol-induced hepatitis with liver inflammation elevation: Resolved 5. Pancreatic mass: Stable over time. Lipase is not elevated currently does not appear to have ongoing pancreatitis. - f/u outpatient GI referral 6. Pulmonary emboli: Diagnosed in September of this year, on Eliquis BID. Follow-up CTA 11/19/24 shows resolution. Appears that he is still on anticoagulation at this time per family's report. - Stop Eliquis at d/c 7. Hyponatremia: Resolved 8. Hypokalemia: Resolved 9. Hypomagnesemia: - Continue home magnesium supplement 10. Hypercalcemia: Resolved 11. Hypertension: - Continue home lisinopril 12. BPH - Continue home flomax 13. Right knee pain: XR showing arthritic changes - Tylenol PRN for pain Discharge Plan Discharge Plan Patient Disposition: SNF Discharge orders & Medications Prescriptions: New chlordiazepoxide HCl 5 mg capsule 10 mg PO DAILY Qty: 6 0RF Rx Instructions: Taper 10 mg PO daily x2 days (02/18-02/19), then 5 mg daily x2 days (02/20-02/21) Continued ascorbic acid (vitamin C) 250 mg tablet 250 mg PO DAILY atorvastatin 40 mg tablet 40 mg PO BEDTIME Qty: 90 3RF nortriptyline 25 mg capsule 25 mg PO BEDTIME Qty: 90 3RF naltrexone 50 mg tablet 50 mg PO DAILY Qty: 30 3RF tamsulosin 0.4 mg capsule 0.4 mg PO DAILY Qty: 90 3RF famotidine 20 mg tablet 20 mg PO BEDTIME Qty: 90 3RF tiotropium-olodaterol 2.5-2.5 mcg/actuation mist 2 puff inhalation QPM Qty: 4 11RF lisinopril 30 mg tablet 20 mg PO DAILY Qty: 90 3RF ipratropium-albuterol 0.5 mg-3 mg(2.5 mg base)/3 mL solution for nebulization 3 ml inhalation Q6-8H PRN (Reason: shortness of breath or wheezing) Qty: 180 2RF magnesium 250 mg tablet 250 mg PO DAILY ondansetron 4 mg tablet,disintegrating 4 mg PO Q8H PRN (Reason: nausea and vomiting) Qty: 30 0RF lidocaine [Lidocan III] 5 % adhesive patch,medicated 1 patch topical DAILY Qty: 30 0RF Rx Instructions: leave on most painful area for up to 12 hrs Discontinued apixaban 5 mg tablet 5 mg PO BID Qty: 180 0RF Follow up/Referrals: Miguel Ángel Bruce MD [Primary Care Provider, Family Practice] Visit Report/Discharge Packet Stand Alone Forms: Patient Portal/API Discharge Data Primary Care Provider: Miguel Ángel Bruce Quality VTE Deep Vein Thrombosis/Pulmonary Embolism Present on Admission: No IH PROFEE Charge Codes Discharge inpatient/observation: [id number]
[2025-02-17 09:00] VITALS: BP 132/86; PULSE 94; RESP 18; O2SAT 94
--- NOTE | 2025-02-17 09:00 | OT.IP.TRT ---
Current Diagnoses Unspecified protein-calorie malnutrition (02/09/25) Hypomagnesemia (02/09/25) Hypercalcemia (02/09/25) Hypo-osmolality and hyponatremia (02/09/25) Hypokalemia (02/09/25) Alcohol use, unspecified with withdrawal with perceptual disturbance (02/09/25) Metabolic encephalopathy (02/09/25) Essential (primary) hypertension (02/09/25) Other pulmonary embolism without acute cor pulmonale (02/09/25) Alcoholic hepatitis without ascites (02/09/25) Other specified diseases of pancreas (02/09/25) Benign prostatic hyperplasia with lower urinary tract symptoms (02/09/25) Occupational Therapy Treatment Note M2 OT-IP Current Condition Start: 02/12/25 11:07 Freq: Status: Active Protocol: Document 02/12/25 11:07 [facility] (Rec: 02/12/25 11:20 [facility] Desktop) Occupational Therapy Current Condition Current Condition Evaluation Date 02/12/25 Treatment Diagnosis ETOH withdraw, decreased coordination and generalized weakness Diagnosis Onset Date 02/09/25 M3 OT- IP Subjective and Pain Start: 02/12/25 11:07 Freq: Status: Active Protocol: Document 02/17/25 09:26 [facility] (Rec: 02/17/25 09:35 [facility] Desktop) OT- Subjective Occupational Therapy Visit Type Type Treatment Note Visit Start Time 08:47 Visit Stop Time 09:27 Occupational Therapy Visit Comments Patient Comments Pt agreed to shower. Patient/Caregiver TO get better so able to care and play with his Goals kid. OT Pain Assessment Pain When Pain Assessed At Rest Pain Present Pain Present Pain Reported Location back Pain Behaviors Facial Grimacing,Holding Area M4 OT- IP ADL's Start: 02/12/25 11:07 Freq: Status: Active Protocol: Document 02/17/25 09:26 [facility] (Rec: 02/17/25 09:35 [facility] Desktop) OT KOT-Fwej-Erlfqhc Comments OT Self-Feeding Not at meal time. Comments OT ADL-Grooming Comments OT Grooming Comments Pt able to comb his hair after the shower. OT ADL-Oral Care Comments Oral Care Comments Not performed. OT ADL-Dressing General Eval Upper Body Dressing Standby Assistance Ability Lower Body Dressing Minimal Assistance Ability Comments OT Dressing Comments Assist to help thread his feet through the brief. Educated to pt would be easier to had his foot on his other knee to stabilize it versus just holding his leg in the air and trying to chin the brief over his foot. OT ADL-Toileting Comments OT Toileting not performed Comments OT ADL-Bathing Bathing Type Bathing Type Shower General Evaluation Bathing Ability Minimal Assistance Areas Needing Wash/Dry Back Assistance Comments OT Bathing Comments Pt best to sit for showers at this time as unsteady on his feet. M5 OT- IP IADL's Start: 02/12/25 11:07 Freq: Status: Active Protocol: Document 02/12/25 11:07 [facility] (Rec: 02/12/25 11:20 [facility] Desktop) OT-Instrumental Activities of Daily Living Home Safety Awareness Home Safety Comments Pt slow to respond to questions and to follow commands at this time. Medication Management Medication Pt at this time will benefit from at least supervision. Management Comments Money Management Money Management Pt will benefit from help. Comments Meal Preparation Meal Preparation Pt will need assist. Comments Donor Relations Associate Donor Relations Associate Pt will need assist. Comments M6 OT- IP Functional Cognition Start: 02/12/25 11:07 Freq: Status: Active Protocol: Document 02/17/25 09:26 [facility] (Rec: 02/17/25 09:35 [facility] Desktop) Cognitive Factors Limiting Selfcare Function Cognitive Comments Cognitive Assessment Pt able to follow commands but still needing safety Comments cues with FWW and transitions. M7 OT- IP Mobility and Balance Start: 02/12/25 11:07 Freq: Status: Active Protocol: Document 02/17/25 09:26 [facility] (Rec: 02/17/25 09:35 [facility] Desktop) OT- Bed Mobility Assessment Supine to Sit Supine to Sit Assist Standby Assistance OT-Transfer Assessment Sit to and From Stand Sit to and from Contact Guard Assistance,Minimal Assistance Stand Transfers Transfer Ability Contact Guard Assistance Technique Transfer Destination Bed,Chair,Shower Stall Transfer Technique Stand Step Pivot Devices Transfer Assistive Gait Belt,Front Wheeled Walker Devices Comments Mobility Comments Pt needing more assist to stand from lower surfaces. Pt needing CGA and use of grab bar for balance while standing to do pericare needs in the shower. Suggested may be best to have a shower chair at home for safety, but still try to work towards his baseline of standing for showering needs prior. OT- Balance Assessment Sitting Balance and Reactions Static Sitting Good Balance Ability Dynamic Sitting Fair Balance Ability Standing Balance and Reactions Static Standing Poor Balance Ability Dynamic Standing Poor Balance Ability Comments Other Balance Tests/ Pt still needing surface/grab bar to hand onto for his Deviations/Treatment balance for ADL needs. : M8 OT- IP Objective Assessments Start: 02/12/25 11:07 Freq: Status: Active Protocol: Document 02/12/25 11:07 [facility] (Rec: 02/12/25 11:20 [facility] Desktop) OT Gross Range of Motion Upper Extremity Range of Motion Assessment Bilaterally Impaired ROM Impairments BUE 0-100, Noted bruising on left side of his body. OT Strength Upper Extremity Strength Assessment Bilaterally Impaired Comments Strength Comments BUE 4/5 to 4+/5 M9 OT- IP Assessment and Plan Start: 02/12/25 11:07 Freq: Status: Active Protocol: Document 02/17/25 09:26 [facility] (Rec: 02/17/25 09:35 [facility] Desktop) OT Summary Assessment and Plan Potential Rehabilitation Good Potential Analytic Complexity Moderate at Evaluation Summary OT Impairments Pain,Range of Motion,Strength,Balance,Functional Cognition,Functional Mobility,Self-Feeding,Grooming, Dressing,Toileting,Bathing,Toilet Transfers,Shower Transfers,Activity Tolerance Progress Towards Progressing Toward Goals Goals Assessment Summary Pt able to actively participate in showering today. Pt to go to skilled rehab today. Goals Self-Feeding Goal Independent Grooming Goal Independent Dressing Goal Independent Toileting Goal Independent Bathing Goal Independent Toilet Transfer Goal Independent Shower Transfer Goal Independent Days to Meet Goals 14 Frequency of Treatment Other frequency 5x/week Treatment Plan OT Treatment Plan ADL Training,Functional Cognition Training,Functional Mobility,Patient/Family Education,Discharge Planning Discharge Recommendations OT Discharge SNF Rehab Recommendations Home Equipment Needs FWW, shower chair Transportation Needs Wheelchair/Cabulance at Discharge
--- NOTE | 2025-02-17 09:24 | CM.DPNOTE ---
DC Note Patient is discharging to [facility] today. Patient and family remain agreeable to plan. Coordinating today with [facility] at [facility]- picker box operator confirmed for 1100. Emailed all requested orders and clinical which included: Signed med list, Rx for Librium, signed hospital exempt PASRR, SNF orders (discharge report) , MD prog notes, therapy notes, MAR, DC Summary. Sent [employer] marketing regional consultant the hospital exempt PASRR via [employer]. Bedside RN updated with nurse to nurse report. Plan: Discharge to [facility], Lorenzo saleh in place, via van picker box operator at 1100. ARTHUR
[2025-02-17] MEDS: APIXABAN 5 MG TABLET PO (09:39)
[2025-02-17] MEDS: FOLIC ACID 1 MG TABLET PO (09:39)
[2025-02-17] MEDS: THIAMINE 100 MG TABLET PO (09:40)
[2025-02-17] MEDS: MAGNESIUM OXIDE 400 MG TABLET PO (09:40)
[2025-02-17] MEDS: MULTIVITAMIN 1 TABLET 1 TAB PO (09:40)
[2025-02-17] MEDS: TAMSULOSIN 0.4 MG CAPSULE PO (09:40)
--- NOTE | 2025-02-17 12:03 | PC.NURSE ---
Discharge Note Patient discharged to [facility] at 1100 via wheelchair. Information packet given to pizza driver along with pt belongings including glasses, CPAP machine, and clothing. Family at bedside at time of transfer and all questions answered. Called [facility] to give report and N unavailable, call back number left, awaiting call back.
== END 2025-02-17 11:00 | DRG 775 ==
LOC: ED 11:51 → AC 16:09 → ICU 17:41
PROVIDERS: Family Medicine; Pharmacist Pharmacist Clinician (PhC)/ Clinical Pharmacy Specialist; Admitting Provider Family Medicine; Emergency Provider Family Medicine; PCP Family Medicine; Referring Provider Family Medicine; Visit Provider Family Medicine
DX: F10.132 Alcohol abuse with withdrawal with perceptual disturbance (principal); G93.41 Metabolic encephalopathy; E43 Unspecified severe protein-calorie malnutrition; E87.1 Hypo-osmolality and hyponatremia; F17.200 Nicotine dependence, unspecified, uncomplicated; K70.10 Alcoholic hepatitis without ascites; K86.89 Other specified diseases of pancreas; E83.42 Hypomagnesemia; E83.52 Hypercalcemia; I10 Essential (primary) hypertension; N40.1 Benign prostatic hyperplasia with lower urinary tract symptoms; N13.8 Other obstructive and reflux uropathy; M25.561 Pain in right knee; E78.5 Hyperlipidemia, unspecified; J44.9 Chronic obstructive pulmonary disease, unspecified; Y90.0 Blood alcohol level of less than 20 mg/100 ml; Z86.711 Personal history of pulmonary embolism; Z79.01 Long term (current) use of anticoagulants; Z68.20 Body mass index [BMI] 20.0-20.9, adult
CPT/HCPCS: 36415; 71045; 73562; 80048; 80053; 80305; 80320; 80329; 81003; 81015; 82550; 83690; 83735; 84450; 84460; 84484; 85025; 87086; 87797; 93005; 93010; 94640; 96361; 96365; 96366; 96375; 96376; 97110; 97112; 97116; 97162; 97166; 97530; 97535; 99223; 99232; 99239; 99284; 99291; A9270; G0480; J2060; J2560; J3475

== ENCOUNTER 2025-05-02 07:07 | Emergency (ER) | payer OTHER, SELFPAY ==
[2024-12-21 14:26] VITALS: PULSE 140; RESP 16; O2SAT 99
[2025-02-09 18:34] VITALS: BMI 20.2
[2025-05-02] VITALS (9 sets, daily range): BP systolic 168–195; BP diastolic 97–106; PULSE 74–105; RESP 18; TEMP 36.4; O2SAT 97–100; BMI 21.8
--- NOTE | 2025-05-02 07:36 | ED_ITS ---
HPI - Abdominal Pain General Chief Complaint: Urogenital-Male Stated Complaint: Sharp stabbing pain where remaining kidney is Time Seen by Provider: 05/02/25 07:14 Source: patient Mode of arrival: Family Vehicle History of Present Illness HPI narrative: Patient is a 64-year-old male with history of alcohol misuse disorder has previously been admitted for alcohol withdrawal, pulmonary embolism on anticoagulation, COPD hypertension presenting today with some left upper quadrant and back pain. thinks that it was the right side and now for the last 2-3 days left side. He denies any radiation to his abdomen no nausea or vomiting. He took Tylenol last night for pain but he is still woke up with pain. No fevers or chills. He reports that he has 1 working kidney. He denies any chest pain shortness of breath no painful frequent urination. No prior history of kidney stone. Related Data Home Medications ?Medication ?Instructions ?Recorded ?Confirmed atorvastatin 80 mg tablet 80 mg PO DAILY 03/12/2508/25 lisinopril 20 mg tablet 20 mg PO DAILY 03/12/2508/25 aspirin 81 mg tablet 81 mg PO DAILY 04/01/2508/25 Previous Rx's ?Medication ?Instructions ?Recorded ondansetron 4 mg disintegrating 4 mg PO Q8H PRN nausea and 12/19/24 tablet vomiting #30 tabs famotidine 20 mg tablet 20 mg PO BEDTIME #90 tabs nortriptyline 25 mg capsule 25 mg PO BEDTIME #90 caps 12/24/24 tamsulosin 0.4 mg capsule 0.4 mg PO DAILY #90 caps tiotropium 2.5 mcg-olodaterol 2.5 2 puff inhalation QP M #4 grams 12/24/24 mcg/actuation mist for inhalation chlordiazepoxide HCl 5 mg capsule 10 mg (2 x 5 mg) PO DAILY #6 caps 02/16/25 ipratropium 0.5 mg-albuterol 3 mg 3 ml inhalation Q6-8 H PRN 02/16/25 (2.5 mg base)/3 mL nebulization shortness of breath or wheezing soln #180 mL metoprolol succinate 25 mg 25 mg PO DAILY #30 tabs 06/24 tablet,extended release 24 hr naltrexone 50 mg tablet 50 mg PO DAILY #30 tabs 04/01 07/25 Allergies Allergy/AdvReac Type Severity Reaction Status Date / Time fluconazole Allergy Severe SWEATING, Verified 05/02/25 07:28 SOB, NAUSEA diclofenac (DICLOFENAC) Allergy Intermediate RASH ON Verified 05/02/25 07:28 FACE; LIGHTHEADEDNESS Patient History Medical History Pulmonary embolism Alcoholic hepatitis Coffee ground emesis Pancreatitis Alcohol withdrawal delirium Alcoholism in remission Acute upper GI bleed Mixed hyperlipidemia History of kidney disease as a child (10/09/16) 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) Essential hypertension (10/09/16) Surgical History Hx of appendectomy (1977) Hx of hernia repair (1999) History of nephrectomy (1977) History of unilateral nephrectomy (10/09/16) Family History Father Congestive heart failure Diabetes mellitus COPD (chronic obstructive pulmonary disease) Mother Hypertension Diabetes mellitus Cancer Other Alcoholism Social History marital status: household members: significant other and family occupational status: previously employed leisure activities: exercise Tobacco: How many years used: 50 alcohol intake: current substance use type: marijuana caffeine: Yes Type(s) of exercise: walking Smoking Status: Current every day smoker tobacco type: cigarettes alcohol intake frequency: 3 or more drinks per day Alcohol type: beer Exam Initial Vital Signs Initial Vital Signs: Vital Signs Pulse Rate 98 H 05/02/25 07:16 Pulse Oximetry 99 05/02/25 07:16 GENERAL: Alert well-appearing 64-year-old male and in no acute distress. HEENT: Head atraumatic,EOMI, pupils reactive, face symmetric, moist mucous membranes CARDIOVASCULAR: Regular rate and rhythm without murmurs, rubs or gallops. RESPIRATORY: Breath sounds equal bilaterally, no wheezes rales or rhonchi. ABDOMEN: Soft, minimal left upper quadrant pain no guarding no rebound abdomen is otherwise soft negative Ramires's sign : No CVA tenderness EXTREMITIES: Normal range of motion, no clubbing or edema. Neurovascularly intact NEUROLOGICAL: Alert and oriented x4.Normal gait and speech. Cranial nerves II through XII grossly intact. SKIN: Warm, dry, no laceration, no petechiae, no rashes or lesions. Course Orders Ordered: ED Orders 05/02/25 07:30 Complete Blood Count AUTO DIFF Stat Comprehensive Metabolic Panel Stat Lipase Stat Trop I [Troponin I] Stat 05/02/25 07:36 CT abdomen pelvis w con Stat 05/02/25 07:38 EKG-12 Lead Stat Discontinued Medications Acetaminophen (Ofirmev) 1,000 mg in 100 mls @ 400 mls/hr IV NOW ONE Stop: 05/02/25 08:27 Last Infusion: 05/02/25 09:43 Dose: Infused Vital Signs Vital signs: Vital Signs - 8 hr 05/02/25 07:16 05/02/25 07:17 05/02/25 07:17 Temperature Pulse Rate 98 H 102 H Respiratory Rate Blood Pressure 188/104 H Pulse Oximetry 99 99 Oxygen Delivery Method 05/02/25 07:20 05/02/25 07:30 05/02/25 07:30 Temperature 97.5 F L Pulse Rate 105 H 87 Respiratory Rate 18 Blood Pressure 188/106 H 173/98 H Pulse Oximetry 100 97 Oxygen Delivery Method Room Air 05/02/25 07:54 05/02/25 07:54 05/02/25 08:02 Temperature Pulse Rate 87 81 Respiratory Rate Blood Pressure 179/101 H Pulse Oximetry 98 98 Oxygen Delivery Method 05/02/25 08:02 05/02/25 08:30 05/02/25 08:30 Temperature Pulse Rate 75 Respiratory Rate Blood Pressure 195/105 H 170/97 H Pulse Oximetry 97 Oxygen Delivery Method 05/02/25 09:00 05/02/25 09:00 05/02/25 09:30 Temperature Pulse Rate 74 Respiratory Rate Blood Pressure 168/97 H 179/99 H Pulse Oximetry 98 Oxygen Delivery Method 05/02/25 09:30 Temperature Pulse Rate 81 Respiratory Rate Blood Pressure Pulse Oximetry 99 Oxygen Delivery Method MDM - Abdominal Pain Lab Data 05/02/25 07:30 05/02/25 07:30 Labs: Lab Results 05/02/25 Range/Units 07:30 WBC 4.9 (4.5-11.0) X10^3/uL RBC 4.23 L (4.5-5.9) X10^6/uL Hgb 13.6 (13.5-17.5) g/dL Hct 40.5 L (41-53) % MCV 95.8 (80-100) fL MCH 32.1 (26-34) PG MCHC 33.5 (30-36) % RDW 17.1 H (11.6-14.8) % Plt Count 195 (150-400) X10^3/uL Neut % (Auto) 57.5 (50-75) % Lymph % (Auto) 29.2 (25-40) % Weld % (Auto) 9.8 (3-14) % Eos % (Auto) 2.6 (2-4) % Baso % (Auto) 0.9 (0-2) % Neut # (Auto) 2800 (1001-0078) /uL Lymph # (Auto) 1400 (2135-2398) /uL Weld # (Auto) 500 (0-900) /uL Eos # (Auto) 100 (0-450) /uL Baso # (Auto) 0 (0-100) /uL Sodium 136 L (137-145) mmol/L Potassium 3.6 (3.4-5.1) mmol/L Chloride 101 (98-107) mmol/L Carbon Dioxide 26 (22-32) mmol/L BUN 6 L (9-20) mg/dL Creatinine 0.78 (0.66-1.25) mg/dL Estimated GFR > 60 (>60) mL/min BUN/Creatinine Ratio 7.7 (6-22) Glucose 162 H (70-99) mg/dL Calcium 9.9 (8.4-10.2) mg/dL Total Bilirubin 0.6 (0.2-1.3) mg/dL AST 41 (17-59) IU/L ALT 25 (<50) IU/L Alkaline Phosphatase 68 (38-126) U/L Troponin I < 0.012 (0.01-0.034) ng/mL Total Protein 8.4 H (6.3-8.2) g/dL Albumin 4.7 (3.5-5.0) g/dL Globulin 3.7 (1.7-4.1) g/dL Albumin/Globulin Ratio 1.3 (1.0-2.8) Lipase 114 (23-300) U/L Point of care testing: Urine Dip Bedside Urine Glucose Negative Bedside Urine Bilirubin - Negative Bedside Urine Ketone - Negative Urine Specific [place] 1.005 Bedside Urine Occult Blood - Negative Bedside Urine pH 6.0 Bedside Urine Protein - Negative Bedside Urine Urobilinogen - Negative Bedside Urine Nitrite - Negative Bedside Urine Leukocytes - Negative Esterase Imaging Data CT scan - abdomen/pelvis: Radiologist's Impression: PROCEDURE: CT ABDOMEN PELVIS W CON INDICATIONS: left upper sided pain TECHNIQUE: After the administration of intravenous contrast, axial sections acquired from the lung bases to the pubic symphysis. Coronal and sagittal reformats were performed. For radiation dose reduction, the following was used: automated exposure control, adjustment of mA and/or kV according to patient size. COMPARISON: [facility], CT, CT ABDOMEN PELVIS W CON, 10/15/2024, 13:00. FINDINGS: Image quality: Diagnostic. Some images are limited by beam hardening artifacts or other artifacts. Lower Chest: No significant findings. ABDOMEN: Moderate nonspecific wall thickening of the distal esophagus into the stomach, and to a lesser degree in the duodenum and proximal jejunum, increased some more than expected for artifact from partial nondistention and esophagitis, gastritis, gastroenteritis or other process could be considered. New mild left hydronephrosis, proximal hydroureter but without CT evidence of renal, ureteral or bladder calculus. Findings may be related to passed stone or other mild pattern of obstruction. Status post right nephrectomy. Mild nonspecific wall thickening of the urinary bladder to the prior exam measures up to 8 mm thickness some of which may be artifact from partial nondistention although mild cystitis, chronic urinary retention, or other infiltrative bladder wall process could be considered. Mildly enlarged prostate gland and seminal vesicles unchanged. Moderate amount of stool throughout the colon in a pattern of constipation similar to the prior exam. Numerous diverticula in the descending and sigmoid colon without CT evidence of diverticulitis. Nonspecific wall thickening distal rectum/anus commonly artifact from partial nondistention although proctitis, hemorrhoids or other anal rectal lesion could be considered, mildly increased. Abnormal appearance bilateral femoral heads with heterogeneous attenuation with peripheral sclerotic densities suspicious for bilateral avascular necrosis without collapse unchanged The previously noted area of heterogeneous low-attenuation or necrotic collection at the head/uncinate process of the pancreas is no longer evident previously measured up to 4.8 cm however there is a 1.4 cm subtle area of heterogeneous low-attenuation at the head of the pancreas may represent IPMN or other lesion which may include neoplasm. Continued follow-up is needed. Liver: Mild low-attenuation of the liver commonly hepatic steatosis or intrinsic hepatic disease unchanged. No CT evidence of focal hepatic lesion. Liver is normal in size and contour Gallbladder: No radiopaque gallstones or wall thickening. Biliary ducts: No biliary dilation. Spleen: Size is within normal limits. Adrenal Glands: No adrenal nodules. Small Bowel: Normal caliber, without significant wall thickening. No small bowel obstruction Peritoneum: No abnormal intraperitoneal fluid. No free air. Ventral Wall: No significant ventral hernia. Abdominal Nodes: No retroperitoneal or mesenteric adenopathy by size criteria. Vessels: Aorta and inferior vena cava are normal in size. Mild degenerative changes lower lumbar spine unchanged IMPRESSION: New mild left hydronephrosis, hydroureter without renal, ureteral or bladder calculus. Wall thickening of the urinary bladder as discussed above. Enlarged prostate gland. Pancreatic head 1.4 cm low-attenuation as discussed above follow-up is needed. Suspected AVN bilateral femoral heads similar to the prior exam. Wall thickening of the distal rectum/anus. Other findings as above. Dictated by: Dio Zhong M.D. on 05/02/2025 at 8:[address] [facility] Narrative Medical decision making narrative: [facility] CC: Left flank pain Complicating co-morbidities: Alcohol abuse Data collected from: Patient Medical records reviewed: Previous admission reviewed Differential considered: Nephrolithiasis, bowel obstruction pancreatitis Exam documented above, pertinent findings include: Mild tenderness on left upper abdomen and flank. No significant CVA tenderness abdomen is otherwise soft nontender no peritoneal Lab Test results independently reviewed as above. Pertinent findings: CBC no leukocytosis no anemia Electrolytes are within normal limits sodium is 136 creatinine 0.78 glucose 162 Bilirubin liver enzymes with out abnormality lipase is 114 Troponin is negative Urinalysis negative for UTI Independently reviewed EKG as above: No EKGs Imaging studies independently reviewed: CT abdomen pelvis shows left hydro ureter which is new but no evidence of nephrolithiasis. Also thickened urinary bladder Consultations: none Treatments: IV Tylenol Re-evaluations: Patient had minimal pain to be given with, he overall appears well nontoxic ambulatory in the ED Discussion: Patient 64-year-old male with left sided pain. He has new left hydroureter without evidence of UTI or nephrolithiasis. Blood work is overall reassuring no evidence of JOSSELYN. At this time supportive care only recommended following up with Urology. Discharge Plan Departure Patient Disposition: Home Clinical Impression: Hydroureter on left Activity Restrictions/Additional Instructions: *You have been diagnosed with left hydro ureter *What to do: At this time no significant cause of your left-sided pain. You do have some dilated left hydroureter no kidney stone is seen *Continue to take medications as directed *Follow up with your primary care provider in 2-3 days or call [phone] *Return to ER if you should have increasing pain nausea vomiting fever or any new, worsening or concerning symptoms Prescriptions: No Action nortriptyline 25 mg capsule 25 mg PO BEDTIME Qty: 90 3RF tamsulosin 0.4 mg capsule 0.4 mg PO DAILY Qty: 90 3RF famotidine 20 mg tablet 20 mg PO BEDTIME Qty: 90 3RF tiotropium-olodaterol 2.5-2.5 mcg/actuation mist 2 puff inhalation QPM Qty: 4 11RF atorvastatin 80 mg tablet 80 mg PO DAILY lisinopril 20 mg tablet 20 mg PO DAILY metoprolol succinate 25 mg tablet extended release 24 hr 25 mg PO DAILY Qty: 30 2RF ipratropium-albuterol 0.5 mg-3 mg(2.5 mg base)/3 mL solution for nebulization 3 ml inhalation Q6-8H PRN (Reason: shortness of breath or wheezing) Qty: 180 2RF naltrexone 50 mg tablet 50 mg PO DAILY Qty: 30 3RF ondansetron 4 mg tablet,disintegrating 4 mg PO Q8H PRN (Reason: nausea and vomiting) Qty: 30 0RF chlordiazepoxide HCl 5 mg capsule 10 mg PO DAILY Qty: 6 0RF Rx Instructions: Taper 10 mg PO daily x2 days (02/18-02/19), then 5 mg daily x2 days (02/20-02/21) aspirin 81 mg tablet 81 mg PO DAILY Referrals: Miguel Ángel Bruce MD [Primary Care Provider, Family Practice] Stand Alone Forms: Patient Portal/API
[2025-05-02 07:45] LABS: Add Manual Diff / Slide Review NO; Hematocrit 40.5 % (41-53); Hemoglobin 13.6 g/dL (13.5-17.5); Lymphocytes Absolute Auto 1400 /uL (1100-4500); Mean Corpuscular HGB Conc 33.5 % (30-36); Mean Corpuscular Hemoglobin 32.1 PG (26-34); Mean Corpuscular Volume 95.8 fL (80-100); Platelet Count 195 X10^3/uL (150-400)
[2025-05-02 07:53] LABS: Alanine Aminotransferase 25 IU/L (<50); Albumin 4.7 g/dL (3.5-5.0); Albumin Globulin Ratio 1.3 (1.0-2.8); Alkaline Phosphatase 68 U/L (38-126); Blood Urea Nitrogen 6 mg/dL (9-20); Calcium 9.9 mg/dL (8.4-10.2); Carbon Dioxide 26 mmol/L (22-32); Chloride 101 mmol/L (98-107); Estimated Glomerular Filt Rate > 60 mL/min (>60); Globulin 3.7 g/dL (1.7-4.1); Glucose 162 mg/dL (70-99); HEMOLYSIS < 15 (0-50); Lipase 114 U/L (23-300); Potassium 3.6 mmol/L (3.4-5.1); Sodium 136 mmol/L (137-145); Total Protein 8.4 g/dL (6.3-8.2)
[2025-05-02 08:04] LABS: Troponin I < 0.012 ng/mL (0.01-0.034)
[2025-05-02] MEDS: ACETAMINOPHEN IV 1,000 MG/100 ML VIAL 400 MG IV (09:10)
--- NOTE | 2025-05-02 09:30 | PC.NURSE ---
iv placed by another nurse
== END 2025-05-02 09:58 | disposition home or self-care (01) ==
PROVIDERS: Emergency Provider Emergency Medicine; PCP Family Medicine
DX: N13.4 Hydroureter (principal); Z86.711 Personal history of pulmonary embolism; Z79.01 Long term (current) use of anticoagulants
CPT/HCPCS: 74177; 80053; 81003; 83690; 84484; 85025; 96365; 99284; J0131; Q9967

== ENCOUNTER → 2025-05-21 15:12 | Outpatient (CLI) | payer OTHER, SELFPAY ==
[2024-12-21 14:26] VITALS: PULSE 140; RESP 16; O2SAT 99
[2025-02-09 18:34] VITALS: BMI 20.2
[2025-05-21 17:04] LABS: Prostate Specific Antigen 5.89 ng/mL (0.10-4.00)
== END ==
PROVIDERS: PCP Family Medicine; Referring Provider Urology; Visit Provider Urology
DX: N40.1 Benign prostatic hyperplasia with lower urinary tract symptoms (principal); R97.20 Elevated prostate specific antigen [PSA]
CPT/HCPCS: 36415; 84153; 93010

== ENCOUNTER 2025-05-21 17:17 | Emergency (ER) | payer OTHER, SELFPAY ==
[2024-12-21 14:26] VITALS: PULSE 140; RESP 16; O2SAT 99
[2025-02-09 18:34] VITALS: BMI 20.2
[2025-05-21] VITALS (9 sets, daily range): BP systolic 156–206; BP diastolic 80–110; PULSE 65–92; RESP 16–21; TEMP 37; O2SAT 96–98; BMI 23.0
--- NOTE | 2025-05-21 17:29 | EKG_ITS ---
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
--- NOTE | 2025-05-21 17:42 | DI.RAD.S_ITS ---
PROCEDURE: XR CHEST 1V INDICATIONS: Chest Pain TECHNIQUE: One view of the chest was acquired. COMPARISON: [facility], CR, XR CHEST 1V, 02/09/2025, 12:43. FINDINGS: Surgical changes and devices: Surgical clips in right upper quadrant compatible with prior cholecystectomy. Lungs and pleura: Lungs are clear. No pleural effusions or pneumothorax. Mediastinum: Mediastinal contours appear normal. Heart size is normal. Bones and chest wall: No suspicious bony lesions. Overlying soft tissues appear unremarkable. IMPRESSION: No acute cardiopulmonary abnormalities or focal consolidation. Dictated by: Beau Wolfe M.D. on 05/21/2025 at 18:53 Approved by: Beau Wolfe M.D. on 05/21/2025 at 18:53
[2025-05-21 18:11] LABS: Add Manual Diff / Slide Review NO; Hematocrit 39.0 % (41-53); Hemoglobin 13.4 g/dL (13.5-17.5); Lymphocytes Absolute Auto 1000 /uL (1100-4500); Mean Corpuscular HGB Conc 34.4 % (30-36); Mean Corpuscular Hemoglobin 32.7 PG (26-34); Mean Corpuscular Volume 95.0 fL (80-100); Platelet Count 176 X10^3/uL (150-400)
[2025-05-21 19:00] LABS: INR 0.9 (0.9-1.3); Prothrombin Time 10.1 SECONDS (9.4-12.5)
[2025-05-21 19:02] LABS: PTT Partial Thromboplastin Tim 26 SECONDS (25.1-36.5)
[2025-05-21 19:04] LABS: Alanine Aminotransferase 47 IU/L (<50); Albumin 4.7 g/dL (3.5-5.0); Albumin Globulin Ratio 1.3 (1.0-2.8); Alkaline Phosphatase 82 U/L (38-126); Blood Urea Nitrogen 15 mg/dL (9-20); Calcium 10.6 mg/dL (8.4-10.2); Carbon Dioxide 29 mmol/L (22-32); Chloride 100 mmol/L (98-107); Creatine Kinase 104 U/L (55-170); Estimated Glomerular Filt Rate > 60 mL/min (>60); Globulin 3.7 g/dL (1.7-4.1); Glucose 143 mg/dL (70-99); HEMOLYSIS < 15 (0-50); Lipase 128 U/L (23-300); Magnesium 1.3 mg/dL (1.6-2.3); Potassium 4.1 mmol/L (3.4-5.1); Sodium 138 mmol/L (137-145); Total Protein 8.4 g/dL (6.3-8.2)
--- NOTE | 2025-05-21 19:06 | ED.CHESTPAIN ---
HPI - Chest Pain General Chief Complaint: Chest Pain Stated Complaint: Yesterday/T R back pain. Hx of heart attack Time Seen by Provider: 05/21/25 17:55 Source: patient Mode of arrival: Ambulatory Limitations: no limitations Related Data Home Medications ?Medication ?Instructions ?Recorded ?Confirmed atorvastatin 80 mg tablet 80 mg PO DAILY 03/12/25 05/18/25 lisinopril 20 mg tablet 20 mg PO DAILY 03/12/25 05/18/25 aspirin 81 mg tablet 81 mg PO DAILY 04/01/25 05/18/25 Previous Rx's ?Medication ?Instructions ?Recorded ondansetron 4 mg disintegrating 4 mg PO Q8H PRN nausea and 12/19/24 tablet vomiting #30 tabs famotidine 20 mg tablet 20 mg PO BEDTIME #90 tabs 12/24/24 nortriptyline 25 mg capsule 25 mg PO BEDTIME #90 caps 12/24/24 tamsulosin 0.4 mg capsule 0.4 mg PO DAILY #90 caps 12/24/24 tiotropium 2.5 mcg-olodaterol 2.5 2 puff inhalation QPM #4 grams 12/24/24 mcg/actuation mist for inhalation ipratropium 0.5 mg-albuterol 3 mg 3 ml inhalation Q6-8H PRN 02/16/25 (2.5 mg base)/3 mL nebulization shortness of breath or wheezing soln #180 mL metoprolol succinate 25 mg 25 mg PO DAILY #30 tabs 03/12/25 tablet,extended release 24 hr naltrexone 50 mg tablet 50 mg PO DAILY #30 tabs 04/20/25 Allergies Allergy/AdvReac Type Severity Reaction Status Date / Time fluconazole Allergy Severe SWEATING, Verified 05/21/25 17:37 SOB, NAUSEA diclofenac (DICLOFENAC) Allergy Intermediate RASH ON Verified 05/21/25 17:37 FACE; LIGHTHEADEDNESS Patient History Medical History Pulmonary embolism Alcoholic hepatitis Coffee ground emesis Pancreatitis Alcohol withdrawal delirium Alcoholism in remission Acute upper GI bleed Mixed hyperlipidemia History of kidney disease as a child (10/09/16) 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) Essential hypertension (10/09/16) Surgical History Hx of appendectomy (1977) Hx of hernia repair (1999) History of nephrectomy (1977) History of unilateral nephrectomy (10/09/16) Family History Father Congestive heart failure Diabetes mellitus COPD (chronic obstructive pulmonary disease) Mother Hypertension Diabetes mellitus Cancer Other Alcoholism Social History marital status: household members: significant other and family occupational status: previously employed leisure activities: exercise Smoking Status: Current every day smoker Tobacco: How many years used: 50 alcohol intake: current substance use type: marijuana caffeine: Yes Type(s) of exercise: walking Smoking Status: Current every day smoker tobacco type: cigarettes alcohol intake frequency: 3 or more drinks per day Alcohol type: beer Exam Initial Vital Signs Initial Vital Signs: Vital Signs Temperature 98.6 F 05/21/25 17:37 Pulse Rate 78 05/21/25 17:37 Respiratory Rate 16 05/21/25 17:37 Blood Pressure 191/93 H 05/21/25 17:37 Pulse Oximetry 98 05/21/25 17:37 Oxygen Delivery Method Room Air 05/21/25 17:37 Course Orders Ordered: ED Orders 05/21/25 17:20 EKG-12 Lead Stat 05/21/25 17:42 XR chest 1V Stat 05/21/25 17:50 Complete Blood Count AUTO DIFF Stat 05/21/25 18:43 Comprehensive Metabolic Panel Stat Lipase Stat Magnesium Stat NT-proBNP (BNP-Adult 18+) Stat PTT Partial Thromboplastin Jose Stat Prothrombin Time INR Stat Troponin & CK Cardiac Panel Stat Vital Signs Vital signs: Vital Signs - 8 hr 05/21/25 17:37 Temperature 98.6 F Pulse Rate 78 Respiratory Rate 16 Blood Pressure 191/93 H Pulse Oximetry 98 Oxygen Delivery Method Room Air MDM - Chest Pain Lab Data 05/21/25 17:50 05/21/25 18:43 Labs: Lab Results 05/21/25 05/21/25 Range/Units 17:50 18:43 WBC 6.0 (4.5-11.0) X10^3/uL RBC 4.10 L (4.5-5.9) X10^6/uL Hgb 13.4 L (13.5-17.5) g/dL Hct 39.0 L (41-53) % MCV 95.0 (80-100) fL MCH 32.7 (26-34) PG MCHC 34.4 (30-36) % RDW 17.9 H (11.6-14.8) % Plt Count 176 (150-400) X10^3/uL Neut % (Auto) 71.6 (50-75) % Lymph % (Auto) 17.0 L (25-40) % [place] % (Auto) 10.6 (3-14) % Eos % (Auto) 0.4 L (2-4) % Baso % (Auto) 0.4 (0-2) % Neut # (Auto) 4300 (9219-7933) /uL Lymph # (Auto) 1000 L (4327-7405) /uL [place] # (Auto) 600 (0-900) /uL Eos # (Auto) 0 (0-450) /uL Baso # (Auto) 0 (0-100) /uL PT 10.1 (9.4-12.5) SECONDS INR 0.9 (0.9-1.3) APTT 26 (25.1-36.5) SECONDS Sodium 138 (137-145) mmol/L Potassium 4.1 (3.4-5.1) mmol/L Chloride 100 (98-107) mmol/L Carbon Dioxide 29 (22-32) mmol/L BUN 15 (9-20) mg/dL Creatinine 0.86 (0.66-1.25) mg/dL Estimated GFR > 60 (>60) mL/min BUN/Creatinine Ratio 17.4 (6-22) Glucose 143 H (70-99) mg/dL Calcium 10.6 H (8.4-10.2) mg/dL Magnesium 1.3 L (1.6-2.3) mg/dL Total Bilirubin 0.6 (0.2-1.3) mg/dL AST 85 H (17-59) IU/L ALT 47 (<50) IU/L Alkaline Phosphatase 82 (38-126) U/L Total Creatine Kinase 104 (55-170) U/L Total Protein 8.4 H (6.3-8.2) g/dL Albumin 4.7 (3.5-5.0) g/dL Globulin 3.7 (1.7-4.1) g/dL Albumin/Globulin Ratio 1.3 (1.0-2.8) Lipase 128 (23-300) U/L Discharge Plan Departure Prescriptions: No Action nortriptyline 25 mg capsule 25 mg PO BEDTIME Qty: 90 3RF tamsulosin 0.4 mg capsule 0.4 mg PO DAILY Qty: 90 3RF famotidine 20 mg tablet 20 mg PO BEDTIME Qty: 90 3RF tiotropium-olodaterol 2.5-2.5 mcg/actuation mist 2 puff inhalation QPM Qty: 4 11RF atorvastatin 80 mg tablet 80 mg PO DAILY lisinopril 20 mg tablet 20 mg PO DAILY metoprolol succinate 25 mg tablet extended release 24 hr 25 mg PO DAILY Qty: 30 2RF ipratropium-albuterol 0.5 mg-3 mg(2.5 mg base)/3 mL solution for nebulization 3 ml inhalation Q6-8H PRN (Reason: shortness of breath or wheezing) Qty: 180 2RF naltrexone 50 mg tablet 50 mg PO DAILY Qty: 30 3RF ondansetron 4 mg tablet,disintegrating 4 mg PO Q8H PRN (Reason: nausea and vomiting) Qty: 30 0RF aspirin 81 mg tablet 81 mg PO DAILY Referrals: Miguel Ángel Bruce MD [Primary Care Provider, Family Practice]
[2025-05-21 19:15] LABS: NT-proBNP (BNP-Adult 18+) 348 pg/mL (<125); Troponin I < 0.012 ng/mL (0.01-0.034)
--- NOTE | 2025-05-21 20:44 | PC.NURSE ---
Patient complains of left flank pain. Has history of surgery to removed diseased and kidney on right side. Reports he only has his left kidney.
[2025-05-21 21:01] LABS: Culture Indicated Urine Cult Not Indicated
[2025-05-21 21:16] LABS: Troponin I 0.020 ng/mL (0.01-0.034)
--- NOTE | 2025-05-21 23:09 | ED.CHESTPAIN ---
HPI - Chest Pain General Chief Complaint: Chest Pain Stated Complaint: Yesterday/T R back pain. Hx of heart attack Time Seen by Provider: 05/21/25 17:55 Source: patient Mode of arrival: Ambulatory Limitations: no limitations History of Present Illness HPI narrative: Patient is a 64-year-old male with a past medical history of hypertension, hyperlipidemia, comes into the ED from home for evaluation of left-sided chest pain, also left-sided flank pain, states this has been ongoing persistent for the past day, he describes it as nonexertional non radiation. He states that he does have a solitary kidney secondary to issues when he was born. He is having some mild symptoms that he states it is very similar to when he had a urinary tract infection. He states he does not have any actual chest pain currently but states that it did feel like it also affected the left side of his back denies any trauma falls. Not on any blood thinners, denies any other symptoms such as headache visual disturbances shortness breath fever chills nausea vomiting abdominal pain or any other GI/ symptoms at this time Related Data Home Medications ?Medication ?Instructions ?Recorded ?Confirmed atorvastatin 80 mg tablet 80 mg PO DAILY 03/12/25 05/18/25 lisinopril 20 mg tablet 20 mg PO DAILY 03/12/25 05/18/25 aspirin 81 mg tablet 81 mg PO DAILY 04/01/25 05/18/25 Previous Rx's ?Medication ?Instructions ?Recorded ondansetron 4 mg disintegrating 4 mg PO Q8H PRN nausea and 12/19/24 tablet vomiting #30 tabs famotidine 20 mg tablet 20 mg PO BEDTIME #90 tabs 12/24/24 nortriptyline 25 mg capsule 25 mg PO BEDTIME #90 caps 12/24/24 tamsulosin 0.4 mg capsule 0.4 mg PO DAILY #90 caps 12/24/24 tiotropium 2.5 mcg-olodaterol 2.5 2 puff inhalation QPM #4 grams 12/24/24 mcg/actuation mist for inhalation ipratropium 0.5 mg-albuterol 3 mg 3 ml inhalation Q6-8H PRN 02/16/25 (2.5 mg base)/3 mL nebulization shortness of breath or wheezing soln #180 mL metoprolol succinate 25 mg 25 mg PO DAILY #30 tabs 03/12/25 tablet,extended release 24 hr naltrexone 50 mg tablet 50 mg PO DAILY #30 tabs 04/20/25 cefuroxime axetil 500 mg tablet 500 mg PO Q12H 10 days #20 tabs 05/21/25 Allergies Allergy/AdvReac Type Severity Reaction Status Date / Time fluconazole Allergy Severe SWEATING, Verified 05/21/25 17:37 SOB, NAUSEA diclofenac (DICLOFENAC) Allergy Intermediate RASH ON Verified 05/21/25 17:37 FACE; LIGHTHEADEDNESS Review of Systems Review of Systems Narrative: General: Denies fever, chills, weight loss HEENT: Denies headache, eye drainage, eye irritation, head trauma, sore throat, voice change Cardiovascular: Positive chest pain, denies palpitations, tachycardia Respiratory: Denies any shortness of breath, cough, wheeze, stridor GI/: Denies any abdominal pain, nausea, vomiting, diarrhea, bright red blood per rectum, melanotic stools, urinary frequency, urinary retention, dysuria, hematuria MSK: Denies any joint pain, muscle pains, swelling Skin: Denies any rashes, lesions, discoloration Neuro: Denies any headache, lightheadedness, dizziness, fainting, weakness Psych: Denies SI/HI Patient History Medical History Pulmonary embolism Alcoholic hepatitis Coffee ground emesis Pancreatitis Alcohol withdrawal delirium Alcoholism in remission Acute upper GI bleed Mixed hyperlipidemia History of kidney disease as a child (10/09/16) 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) Essential hypertension (10/09/16) Surgical History Hx of appendectomy (1977) Hx of hernia repair (1999) History of nephrectomy (1977) History of unilateral nephrectomy (10/09/16) Family History Father Congestive heart failure Diabetes mellitus COPD (chronic obstructive pulmonary disease) Mother Hypertension Diabetes mellitus Cancer Other Alcoholism Social History marital status: household members: significant other and family occupational status: previously employed leisure activities: exercise Tobacco: How many years used: 50 alcohol intake: current substance use type: marijuana caffeine: Yes Type(s) of exercise: walking Smoking Status: Current every day smoker tobacco type: cigarettes alcohol intake frequency: 3 or more drinks per day Alcohol type: beer Exam Narrative Exam Narrative: General: Cooperative, well-developed, not in acute distress HEENT: Normocephalic, atraumatic, PERRLA, normal sclera, eyelids normal Neck: Active full range of motion, atraumatic Chest: Normal to inspection, negative crepitus, no overlying erythema ecchymosis Respiratory: Normal respiratory effort, not in acute respiratory distress, clear to auscultation bilaterally negative cough, wheeze, tachypnea, rhonchi, rales Cardiology: Regular rate rhythm negative gallop, murmur, rubs GI/: No tenderness to palpation, soft, non rigid, normal to inspection, exam deferred MSK: Full active range of motion in all 4 extremities, atraumatic, no tenderness to palpation of any bony prominences Skin: No rashes or lesions noted Neuro: Alert awake oriented x3, moves all 4 extremities spontaneously, cranial nerves intact, able to answer all questions appropriately follows commands appropriately Psych: Cooperative, negative suicidal or homicidal ideations Initial Vital Signs Initial Vital Signs: Vital Signs Temperature 98.6 F 05/21/25 17:37 Pulse Rate 78 05/21/25 17:37 Respiratory Rate 16 05/21/25 17:37 Blood Pressure 191/93 H 05/21/25 17:37 Pulse Oximetry 98 05/21/25 17:37 Oxygen Delivery Method Room Air 05/21/25 17:37 Course Orders Ordered: ED Orders 05/21/25 17:20 EKG-12 Lead Stat 05/21/25 17:42 XR chest 1V Stat 05/21/25 17:50 Complete Blood Count AUTO DIFF Stat 05/21/25 18:43 Comprehensive Metabolic Panel Stat Lipase Stat Magnesium Stat NT-proBNP (BNP-Adult 18+) Stat PTT Partial Thromboplastin Jose Stat Prothrombin Time INR Stat Troponin & CK Cardiac Panel Stat 05/21/25 20:35 Trop I [Troponin I] Stat Urine Microscopic Stat Vital Signs Vital signs: Vital Signs - 8 hr 05/21/25 17:37 05/21/25 20:15 05/21/25 20:32 Temperature 98.6 F Pulse Rate 78 82 92 H Respiratory Rate 16 16 Blood Pressure 191/93 H 167/98 H Pulse Oximetry 98 98 96 Oxygen Delivery Method Room Air Room Air 05/21/25 20:34 05/21/25 20:34 05/21/25 21:00 Temperature Pulse Rate 67 80 Respiratory Rate 19 20 Blood Pressure 183/97 H Pulse Oximetry 98 97 Oxygen Delivery Method 05/21/25 21:00 05/21/25 21:30 05/21/25 21:30 Temperature Pulse Rate 77 Respiratory Rate 18 Blood Pressure 206/110 H 164/102 H Pulse Oximetry 97 Oxygen Delivery Method 05/21/25 22:00 05/21/25 22:00 05/21/25 22:30 Temperature Pulse Rate 76 77 Respiratory Rate 20 21 Blood Pressure 163/100 H Pulse Oximetry 97 97 Oxygen Delivery Method 05/21/25 22:30 Temperature Pulse Rate Respiratory Rate Blood Pressure 156/91 H Pulse Oximetry Oxygen Delivery Method MDM - Chest Pain Lab Data 05/21/25 17:50 05/21/25 18:43 Labs: Lab Results 05/21/25 05/21/25 05/21/25 Range/Units 17:50 18:43 20:35 WBC 6.0 (4.5-11.0) X10^3/uL RBC 4.10 L (4.5-5.9) X10^6/uL Hgb 13.4 L (13.5-17.5) g/dL Hct 39.0 L (41-53) % MCV 95.0 (80-100) fL MCH 32.7 (26-34) PG MCHC 34.4 (30-36) % RDW 17.9 H (11.6-14.8) % Plt Count 176 (150-400) X10^3/uL Neut % (Auto) 71.6 (50-75) % Lymph % (Auto) 17.0 L (25-40) % [place] % (Auto) 10.6 (3-14) % Eos % (Auto) 0.4 L (2-4) % Baso % (Auto) 0.4 (0-2) % Neut # (Auto) 4300 (9086-3393) /uL Lymph # (Auto) 1000 L (3540-0667) /uL [place] # (Auto) 600 (0-900) /uL Eos # (Auto) 0 (0-450) /uL Baso # (Auto) 0 (0-100) /uL PT 10.1 (9.4-12.5) SECONDS INR 0.9 (0.9-1.3) APTT 26 (25.1-36.5) SECONDS Sodium 138 (137-145) mmol/L Potassium 4.1 (3.4-5.1) mmol/L Chloride 100 (98-107) mmol/L Carbon Dioxide 29 (22-32) mmol/L BUN 15 (9-20) mg/dL Creatinine 0.86 (0.66-1.25) mg/dL Estimated GFR > 60 (>60) mL/min BUN/Creatinine Ratio 17.4 (6-22) Glucose 143 H (70-99) mg/dL Calcium 10.6 H (8.4-10.2) mg/dL Magnesium 1.3 L (1.6-2.3) mg/dL Total Bilirubin 0.6 (0.2-1.3) mg/dL AST 85 H (17-59) IU/L ALT 47 (<50) IU/L Alkaline Phosphatase 82 (38-126) U/L Total Creatine Kinase 104 (55-170) U/L Troponin I < 0.012 0.020 (0.01-0.034) ng/mL NT-Pro-B Natriuret Pep 348 H (<125) pg/mL Total Protein 8.4 H (6.3-8.2) g/dL Albumin 4.7 (3.5-5.0) g/dL Globulin 3.7 (1.7-4.1) g/dL Albumin/Globulin Ratio 1.3 (1.0-2.8) Lipase 128 (23-300) U/L Urine RBC 0-1/hpf (0-5/HPF) Urine WBC 1-5/hpf (0-5/HPF) Ur Squamous Epith Cells 1-5 /hpf (0-5/HPF) Urine Bacteria Few (2-10) H (None) Urine Sperm Present Ur Culture Indicated? Cult not indicated Vol Urine Centrifuged 10ml (spun) Urine Dip Bedside Urine Glucose Negative Bedside Urine Bilirubin - Negative Bedside Urine Ketone - Negative Urine Specific [place] 1.015 Bedside Urine Occult Blood - Negative Bedside Urine pH 6.5 Bedside Urine Protein + 30 Bedside Urine Urobilinogen - Negative Bedside Urine Nitrite - Negative Bedside Urine Leukocytes - Negative Esterase ECG Data Interpretation: EKG interpreted by ED physician sinus 77 beats per minute QTC 100, QRS KS interval limits, normal axis, no STEMI MDM Narrative Medical decision making narrative: 64-year-old male with a past medical history of hyperlipidemia, hypertension, NSTEMI comes into the ED from home for evaluation multiple complaints. Patient is stating that yesterday he started having some left sided chest pain pressure in nature feels like it goes to his back not having it actively, he also states that he has some left-sided flank pain, states it is similar to when he had a urinary infection in the past, he states that he has 1 kidney due to issues to when he was born, has left solitary kidney. Patient's lab work without any leukocytosis, did have a mild hypomagnesemia of 1.3 however patient states that this is chronic for him, patient troponin negative x2, BNP normal, chest x-ray without any acute cardiopulmonary abnormality, urine was consistent with few bacteria therefore we will be treating for acute urinary tract infection given symptoms and history, patient with a heart score of 3, he states that he has has been in the process of getting a echo and stress test but states that he has been having some issues with his insurance, states that he would prefer to have this done outpatient and is requesting referral we will provide this for him. Patient will be discharged home with strict return precautions instructed follow up primary care Cardiology in outpatient setting, he verbalized understanding of this and agrees to being discharged home with outpatient follow up Discharge Plan Departure Patient Disposition: Home Clinical Impression: Chest pain, Urinary tract infection Instructions: DI for Chest Pain Activity Restrictions/Additional Instructions: Please follow up with the cardiology and your primary care doctor in outpatient setting Please read the discharge instructions sheet carefully and bring all papers to all doctor follow-up visits, as it may contain information that your doctor may want to see. Disease processes change and evolve, if your symptoms worsen or if you develop any new symptoms that are concerning to you please return for evaluation. Your evaluation today does not show any evidence of any life-threatening/serious illnesses requiring admission to the hospital or surgery. Please follow-up with your doctor for re-evaluation in approximately 1 day. Seek immediate medical attention for any worrisome symptoms. *If you do not have a primary care provider please contact the [facility] Resource line at [phone]. They will ask some questions about your medical history and help get you set up with a doctor in the community. Prescriptions: New cefuroxime axetil 500 mg tablet 500 mg PO Q12H 10 Days Qty: 20 0RF No Action nortriptyline 25 mg capsule 25 mg PO BEDTIME Qty: 90 3RF tamsulosin 0.4 mg capsule 0.4 mg PO DAILY Qty: 90 3RF famotidine 20 mg tablet 20 mg PO BEDTIME Qty: 90 3RF tiotropium-olodaterol 2.5-2.5 mcg/actuation mist 2 puff inhalation QPM Qty: 4 11RF atorvastatin 80 mg tablet 80 mg PO DAILY lisinopril 20 mg tablet 20 mg PO DAILY metoprolol succinate 25 mg tablet extended release 24 hr 25 mg PO DAILY Qty: 30 2RF ipratropium-albuterol 0.5 mg-3 mg(2.5 mg base)/3 mL solution for nebulization 3 ml inhalation Q6-8H PRN (Reason: shortness of breath or wheezing) Qty: 180 2RF naltrexone 50 mg tablet 50 mg PO DAILY Qty: 30 3RF ondansetron 4 mg tablet,disintegrating 4 mg PO Q8H PRN (Reason: nausea and vomiting) Qty: 30 0RF aspirin 81 mg tablet 81 mg PO DAILY Referrals: Miguel Ángel Bruce MD [Primary Care Provider, Family Practice] Stand Alone Forms: Patient Portal/API
== END 2025-05-21 23:51 | disposition home or self-care (01) ==
PROVIDERS: Emergency Medicine; Emergency Provider Student in an Organized Health Care Education/Training Program; PCP Family Medicine
DX: R07.9 Chest pain, unspecified (principal); N39.0 Urinary tract infection, site not specified; I10 Essential (primary) hypertension; I25.2 Old myocardial infarction; Z90.5 Acquired absence of kidney; F17.200 Nicotine dependence, unspecified, uncomplicated
CPT/HCPCS: 36415; 71045; 80053; 81003; 81015; 82550; 83690; 83735; 83880; 84153; 84484; 85025; 85610; 85730; 93005; 93010; 99284

== ENCOUNTER 2025-05-25 09:07 | Emergency (ER) | payer OTHER, SELFPAY ==
[2024-12-21 14:26] VITALS: PULSE 140; RESP 16; O2SAT 99
[2025-02-09 18:34] VITALS: BMI 20.2
[2025-05-25 09:11] VITALS: O2SAT 99
[2025-05-25 09:13] VITALS: BP 183/104; PULSE 89; O2SAT 98
[2025-05-25 09:15] VITALS: BP 183/104; PULSE 98; RESP 15; TEMP 37; O2SAT 99; BMI 23.0
--- NOTE | 2025-05-25 09:25 | ED.ABDPAIN ---
HPI - Abdominal Pain General Chief Complaint: Urogenital-Male Stated Complaint: Dr. Reid, Possible kidney stone this morning Time Seen by Provider: 05/25/25 09:18 Source: patient and family Mode of arrival: Ambulatory History of Present Illness HPI narrative: 64-year-old gentleman past medical history of hypertension dyslipidemia seen on 05/02/2025 for left-sided chest and left-sided flank pain diagnosed with UT sent home on cefuroxime presents with presentation this morning again came in to be re-evaluated. He denies any fever, chills, body aches, sore throat, cough, shortness of breath, dyspnea on exertion, leg pain, leg swelling. Other than what is stated 14 point review of system is negative Related Data Home Medications ?Medication ?Instructions ?Recorded ?Confirmed atorvastatin 80 mg tablet 80 mg PO DAILY 03/12/25 05/18/25 lisinopril 20 mg tablet 20 mg PO DAILY 03/12/25 05/18/25 aspirin 81 mg tablet 81 mg PO DAILY 04/01/25 05/18/25 Previous Rx's ?Medication ?Instructions ?Recorded ondansetron 4 mg disintegrating 4 mg PO Q8H PRN nausea and 12/19/24 tablet vomiting #30 tabs famotidine 20 mg tablet 20 mg PO BEDTIME #90 tabs 12/24/24 nortriptyline 25 mg capsule 25 mg PO BEDTIME #90 caps 12/24/24 tamsulosin 0.4 mg capsule 0.4 mg PO DAILY #90 caps 12/24/24 tiotropium 2.5 mcg-olodaterol 2.5 2 puff inhalation QPM #4 grams 12/24/24 mcg/actuation mist for inhalation ipratropium 0.5 mg-albuterol 3 mg 3 ml inhalation Q6-8H PRN 02/16/25 (2.5 mg base)/3 mL nebulization shortness of breath or wheezing soln #180 mL metoprolol succinate 25 mg 25 mg PO DAILY #30 tabs 03/12/25 tablet,extended release 24 hr naltrexone 50 mg tablet 50 mg PO DAILY #30 tabs 04/20/25 cefuroxime axetil 500 mg tablet 500 mg PO Q12H 10 days #20 tabs 05/21/25 polyethylene glycol 3350 17 17 g PO DAILY #510 grams 05/25/25 gram/dose oral powder (Miralax) Allergies Allergy/AdvReac Type Severity Reaction Status Date / Time fluconazole Allergy Severe SWEATING, Verified 05/21/25 17:37 SOB, NAUSEA diclofenac (DICLOFENAC) Allergy Intermediate RASH ON Verified 05/21/25 17:37 FACE; LIGHTHEADEDNESS Review of Systems Review of Systems ROS Unobtainable: All systems reviewed & are unremarkable except as noted in HPI and below Patient History Medical History Pulmonary embolism Alcoholic hepatitis Coffee ground emesis Pancreatitis Alcohol withdrawal delirium Alcoholism in remission Acute upper GI bleed Mixed hyperlipidemia History of kidney disease as a child (10/09/16) 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) Essential hypertension (10/09/16) Surgical History Hx of appendectomy (1977) Hx of hernia repair (1999) History of nephrectomy (1977) History of unilateral nephrectomy (10/09/16) Family History Father Congestive heart failure Diabetes mellitus COPD (chronic obstructive pulmonary disease) Mother Hypertension Diabetes mellitus Cancer Other Alcoholism Social History marital status: household members: significant other and family occupational status: previously employed leisure activities: exercise Tobacco: How many years used: 50 alcohol intake: current substance use type: marijuana caffeine: Yes Type(s) of exercise: walking tobacco type: cigarettes alcohol intake frequency: 3 or more drinks per day Alcohol type: beer Exam Narrative Exam Narrative: GENERAL: [64] year old patient appears stated age. Well-developed patient, in mild distress. HEAD: Atraumatic. Normocephalic. EYES: Pupils equal round and reactive. Extraocular motions intact. No scleral icterus. No injection or drainage. ENT: Nose without bleeding, purulent drainage. Throat without erythema, tonsillar hypertrophy or exudate. Airway patent. NECK: Trachea midline. Non tender CARDIOVASCULAR: Regular rate and rhythm without murmurs, gallops, or rubs. RESPIRATORY: Clear to auscultation. Breath sounds equal bilaterally. No wheezes, rales, or rhonchi. GASTROINTESTINAL: Abdomen soft, LLQ no r/r/g EXTREMITIES: No edema or joint tenderness. BACK: Nontender without deformity or crepitance. No flank tenderness. NEURO: AOx3. SKIN: No rash or erythema of visible areas Initial Vital Signs Initial Vital Signs: Vital Signs Temperature 98.6 F 05/25/25 09:15 Pulse Rate 98 H 05/25/25 09:15 Respiratory Rate 15 05/25/25 09:15 Blood Pressure 183/104 H 05/25/25 09:15 Pulse Oximetry 99 05/25/25 09:15 Oxygen Delivery Method Room Air 05/25/25 09:15 Course Orders Ordered: ED Orders 05/25/25 09:27 CT abdomen pelvis w con Stat Comprehensive Metabolic Panel Stat Lipase Stat EKG-12 Lead Stat 05/25/25 09:49 Blood Culture Stat Complete Blood Count AUTO DIFF Stat Ondansetron HCl (Ondansetron 4 Mg/2 Ml Inj) 4 mg IV NOW PRN PRN Reason: Nausea And Vomiting Last Admin: 05/25/25 09:37 Dose: 4 mg Documented By: KIARRA Ondansetron HCl (Ondansetron 4 Mg Odt) 4 mg PO NOW PRN PRN Reason: Nausea And Vomiting Discontinued Medications Morphine Sulfate (Morphine 4 Mg/Ml Inj) 4 mg IV NOW ONE Stop: 05/25/25 09:29 Last Admin: 05/25/25 09:35 Dose: 4 mg Documented By: KIARRA Vital Signs Vital signs: Vital Signs - 8 hr 05/25/25 09:15 Temperature 98.6 F Pulse Rate 98 H Respiratory Rate 15 Blood Pressure 183/104 H Pulse Oximetry 99 Oxygen Delivery Method Room Air MDM - Abdominal Pain Lab Data 05/25/25 09:49 05/25/25 09:27 Labs: Lab Results 05/25/25 05/25/25 Range/Units 09:27 09:49 WBC 6.2 (4.5-11.0) X10^3/uL RBC 3.91 L (4.5-5.9) X10^6/uL Hgb 12.8 L (13.5-17.5) g/dL Hct 37.4 L (41-53) % MCV 95.5 (80-100) fL MCH 32.6 (26-34) PG MCHC 34.2 (30-36) % RDW 17.4 H (11.6-14.8) % Plt Count 142 L (150-400) X10^3/uL Neut % (Auto) 66.3 (50-75) % Lymph % (Auto) 20.9 L (25-40) % Kay % (Auto) 9.1 (3-14) % Eos % (Auto) 3.2 (2-4) % Baso % (Auto) 0.5 (0-2) % Neut # (Auto) 4100 (4527-3780) /uL Lymph # (Auto) 1300 (7058-4592) /uL Kay # (Auto) 600 (0-900) /uL Eos # (Auto) 200 (0-450) /uL Baso # (Auto) 0 (0-100) /uL Sodium 138 (137-145) mmol/L Potassium 4.6 (3.4-5.1) mmol/L Chloride 103 (98-107) mmol/L Carbon Dioxide 25 (22-32) mmol/L BUN 15 (9-20) mg/dL Creatinine 0.76 (0.66-1.25) mg/dL Estimated GFR > 60 (>60) mL/min BUN/Creatinine Ratio 19.7 (6-22) Glucose 109 H (70-99) mg/dL Calcium 9.4 (8.4-10.2) mg/dL Total Bilirubin 0.8 (0.2-1.3) mg/dL AST 73 H (17-59) IU/L ALT 39 (<50) IU/L Alkaline Phosphatase 80 (38-126) U/L Total Protein 8.0 (6.3-8.2) g/dL Albumin 4.6 (3.5-5.0) g/dL Globulin 3.4 (1.7-4.1) g/dL Albumin/Globulin Ratio 1.4 (1.0-2.8) Lipase 116 (23-300) U/L Imaging Data CT scan - abdomen/pelvis: Radiologist's Impression: [address] [address] [address] Scan Report Signed Patient: Donavan Lizama MR#: [id number] : 1960 Acct:[id number] Age/Sex: 64 / M Date of Service: 05/25/25 Loc: ED Accession Number: [id number] Procedure: CT abdomen pelvis w con Ordering Provider: oJsue Pepe D.O. PROCEDURE: CT ABDOMEN PELVIS W CON INDICATIONS: L sided hydronephrosis from ct scan L sided TECHNIQUE: After the administration of intravenous contrast, axial sections acquired from the lung bases to the pubic symphysis. Coronal and sagittal reformats were performed. For radiation dose reduction, the following was used: automated exposure control, adjustment of mA and/or kV according to patient size. COMPARISON: [facility], CT, CT CHEST ABD PEL W CON, 02/06/2025, 10:51. [facility], CT, CT ABDOMEN PELVIS W CON, 05/02/2025, 8:46. [facility], CT, CT ABDOMEN PELVIS W CON, 10/15/2024, 13:00. FINDINGS: Image quality: Diagnostic. Lower Chest: Stable calcified subpleural nodule in the lingula, considered benign. ABDOMEN: Liver: No solid mass. Liver is mildly hypoattenuating. Gallbladder: No radiopaque gallstones or wall thickening. Biliary ducts: No biliary dilation. Pancreas: 1.6 x 1.3 cm hypoattenuating mildly exophytic lesion at the anterior uncinate process (2/41), not significantly changed when compared to the prior CT given differences in measuring technique, and decreased in size when compared to the CT from 02/06/2025.. No pancreatic duct dilatation. Spleen: Coarse calcifications in the spleen are likely related to prior granulomatous disease. Adrenal Glands: No adrenal nodules. Kidneys and Ureters: Multifocal left renal cortical scarring. Right kidney is surgically absent. Mild left hydronephrosis versus extrarenal pelvis, not significantly changed when compared to the CT from 05/02/2025. No significant hydroureter. No renal or ureteral calculus. No solid mass. No complex renal cystic lesion which requires follow up. Stomach and Bowel: Multiple diverticula are seen in the colon without signs of acute diverticulitis. Moderate colonic stool. Status post appendectomy. Small bowel loops are nondilated. Peritoneum: No abnormal intraperitoneal fluid. No free air. Ventral Wall: Small fat containing periumbilical hernia. Abdominal Nodes: No retroperitoneal or mesenteric adenopathy by size criteria. Vessels: Aorta and inferior vena cava are normal in size. PELVIS: Pelvic Organs: Coarse calcifications are seen in the prostate. Prostate is borderline in size. Bladder: Circumferential bladder wall thickening. Pelvic Nodes: No enlarged lymph nodes. Miscellaneous: No inguinal hernias are seen. Bones: No aggressive osseous abnormality. Geographic areas of sclerosis in the anterior superior femoral heads bilaterally, compatible with chronic osteonecrosis. No articular surface collapse is seen. IMPRESSION: 1. Mild left hydronephrosis versus extrarenal pelvis, not significantly changed when compared to the CT from 05/02/2025 or 02/06/2025. No obstructing calculus or mass. 2. Circumferential bladder wall thickening may be related to chronic outlet obstruction or possibly cystitis. Prostate appears borderline in size and heterogeneous. 3. Colonic diverticulosis without signs of acute diverticulitis. Moderate colonic stool. 4. Pancreatic head/uncinate process cystic lesion is stable when compared to CT from 05/02/2025 and decreased in size when compared to 02/26/2025. 5. Chronic osteonecrosis of the femoral heads bilaterally without articular surface collapse, unchanged. ECG Data Interpretation: NSR HR 77 VT 164 QRS [address]-t wave change Unchanged from 05/21/25 MDM Narrative Medical decision making narrative: All lab work, vital signs, nurse triage note, medication list, previous ER visits, and all imaging studies reviewed. WBC 6.2 hemoglobin 12 point platelet 142 sodium 138 potassium 4.6 CO2 25 chloride 103 BUN 15 creatinine 0.7 glucose 109 AST 70 ALT 39 alk-phos 80 T bili 0.[address] abdomen and pelvis showed mild left hydronephrosis versus extrarenal pelvis [place] change when compared to CT from 05/02 or 02/06/2025. No obstructing calculus or mass. Circumferential bladder wall thickening may be related to chronic outlet obstruction or possibly cystitis. Prostate appears borderline in size and heterogeneous. Colonic diverticulosis without signs of acute diverticulitis. Moderate colonic stool. Pancreatic head uncinate process cystic lesion is stable when compared to CAT scan from 05/02 and decreased in size compared to 02/26. Chronic osteonecrosis of the femoral heads bilaterally without articular surface collapse unchanged. Patient given lactulose and lactated ringer here. Differential diagnosis UTI constipation kidney stone kidney infection diverticulitis pancreatitis. Discharge Plan Departure Patient Disposition: Home Clinical Impression: Constipation Instructions: DI for Constipation Activity Restrictions/Additional Instructions: Return with new or worsening symptoms. Follow up with PCP and/or Urology next week if no improvement in symptoms. Take medicine as directed and keep hydrated. Tylenol 500mg every 6 hours for pain control to alternate with ibuprofen 800mg every 8 hours as needed for pain. Prescriptions: New polyethylene glycol 3350 [Miralax] 17 gram/dose powder 17 g PO DAILY Qty: 510 0RF No Action nortriptyline 25 mg capsule 25 mg PO BEDTIME Qty: 90 3RF tamsulosin 0.4 mg capsule 0.4 mg PO DAILY Qty: 90 3RF famotidine 20 mg tablet 20 mg PO BEDTIME Qty: 90 3RF tiotropium-olodaterol 2.5-2.5 mcg/actuation mist 2 puff inhalation QPM Qty: 4 11RF atorvastatin 80 mg tablet 80 mg PO DAILY lisinopril 20 mg tablet 20 mg PO DAILY metoprolol succinate 25 mg tablet extended release 24 hr 25 mg PO DAILY Qty: 30 2RF ipratropium-albuterol 0.5 mg-3 mg(2.5 mg base)/3 mL solution for nebulization 3 ml inhalation Q6-8H PRN (Reason: shortness of breath or wheezing) Qty: 180 2RF naltrexone 50 mg tablet 50 mg PO DAILY Qty: 30 3RF ondansetron 4 mg tablet,disintegrating 4 mg PO Q8H PRN (Reason: nausea and vomiting) Qty: 30 0RF cefuroxime axetil 500 mg tablet 500 mg PO Q12H 10 Days Qty: 20 0RF aspirin 81 mg tablet 81 mg PO DAILY Referrals: Miguel Ángel Bruce MD [Primary Care Provider, Family Practice] Stand Alone Forms: Patient Portal/API
[2025-05-25 09:30] VITALS: PULSE 89; O2SAT 98
[2025-05-25] MEDS: MORPHINE 4 MG/ML INJ IV (09:35)
--- NOTE | 2025-05-25 09:36 | EKG_ITS ---
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
[2025-05-25] MEDS: ONDANSETRON 4 MG/2 ML INJ IV (09:37)
[2025-05-25 09:46] LABS: Alanine Aminotransferase 39 IU/L (<50); Albumin 4.6 g/dL (3.5-5.0); Albumin Globulin Ratio 1.4 (1.0-2.8); Alkaline Phosphatase 80 U/L (38-126); Blood Urea Nitrogen 15 mg/dL (9-20); Calcium 9.4 mg/dL (8.4-10.2); Carbon Dioxide 25 mmol/L (22-32); Chloride 103 mmol/L (98-107); Estimated Glomerular Filt Rate > 60 mL/min (>60); Globulin 3.4 g/dL (1.7-4.1); Glucose 109 mg/dL (70-99); HEMOLYSIS 61 (0-50); Lipase 116 U/L (23-300); Potassium 4.6 mmol/L (3.4-5.1); Sodium 138 mmol/L (137-145); Total Protein 8.0 g/dL (6.3-8.2)
[2025-05-25 09:57] LABS: Add Manual Diff / Slide Review NO; Hematocrit 37.4 % (41-53); Hemoglobin 12.8 g/dL (13.5-17.5); Lymphocytes Absolute Auto 1300 /uL (1100-4500); Mean Corpuscular HGB Conc 34.2 % (30-36); Mean Corpuscular Hemoglobin 32.6 PG (26-34); Mean Corpuscular Volume 95.5 fL (80-100); Platelet Count 142 X10^3/uL (150-400)
[2025-05-25 10:00] VITALS: PULSE 76; O2SAT 96
[2025-05-25] MEDS: LACTULOSE 20 GM/30 ML SOLUTION PO (11:19)
[2025-05-25 11:25] VITALS: BP 178/95; PULSE 82; RESP 18; O2SAT 96
== END 2025-05-25 11:25 | disposition home or self-care (01) ==
PROVIDERS: Emergency Provider Family Medicine; PCP Family Medicine
DX: K59.00 Constipation, unspecified (principal)
CPT/HCPCS: 36415; 74177; 80053; 83690; 85025; 87040; 93005; 96374; 96375; 99284; J2272; J2405; Q9967